=== PATIENT | female | born 1945 | race Caucasian/White ===

== ENCOUNTER 2016-10-30 05:58 | Inpatient (IN) | payer OTHER ==
[2016-10-30 06:39] VITALS: BMI 54.4
[2016-10-30] MEDS ORDERED: KETOROLAC TROMETHAMINE 30 MG/1 ML VIAL ONE (07:49)
[2016-10-30] MEDS ORDERED: ACETAMINOPHEN INJECTION 100 ML IVPB ONE (07:49)
[2016-10-30] MEDS ORDERED: SODIUM CHLORIDE 1,000 ML IV STA (08:18)
[2016-10-30] MEDS ORDERED: PIPERACILLIN/TAZOB 3.375 GM/50 ML PRE-DOCKED IV ONE (08:18)
[2016-10-30] MEDS ORDERED: KETOROLAC TROMETHAMINE 30 MG/1 ML VIAL IVPUSH ONE (08:18)
[2016-10-30] MEDS ORDERED: ACETAMINOPHEN 500 MG TABLET (FP) PO ONE (08:18)
[2016-10-30] MEDS ORDERED: VANCOMYCIN 1,000 MG in DEXTROSE 5%-WATER - 250 ML IVPB ONE (08:18)
--- NOTE | 2016-10-30 08:18 | PDOC ---
History of Present Illness - General History Source: Patient, Old Records Exam Limitations: No Limitations - History of Present Illness Initial Comments: 10/30/16 07:29 The patient is a 71-year-old woman, from home, with a significant past medical history of hypertension, hyperchoelsterolemia, insulin dependent diabetes mellitus, chronic obstructive pulmonary disease (baseline O2 is low 90s; home O2 dependent on 2.5L), hypothyroidism, kidney stones and morbid obesity who presents to the emergency department via EMS status post fall. No head injury. Patient stated that she was transferring from her bed to an electric chair with the assistance of her brother and slid and fell on the left side of her body. She reports excruciating non-radiating pain over the left knee (reported 10/10 in severity) for which she has a history of partial knee replacement. Although, upon ED arrival, her vitals were significant for a temperature of 100.5, heart rate of 108 bpm respiratory rate of 22 and an oxygen saturation of 88% on 5L NC , she denies feeling short of breath and states she is at her baseline. She also expresses concern for her cellulitis over both her lower extremities, for which she follows up every Saturday at [facility]. No leg pain. She wants to be on time for her appointment at 11:00AM. Off note- patient underwent an echocardiogram on 02/29/2016 for hypoxia which revealed left ventrical systolic function is mild to moderately reduced, left/ right atria are mildly dilated, trace to mild mitral regurgitation, moderate tricuspid regurgitations, right ventricular systolic pressure of-mmHg and small pericardial effusion (<1cm) and a stress test on 06/07/2016 which) was indicative for no ischemia and a LVEF of 45%. No chills, generalized weakness No numbness, parethesias sensations to her extremities. No cough, shortness of breath. No chest pain, lightheadedness, dizziness, visual changes Allergies: Codeine. Tramadol. Shellfish Past Surgical History: Partial left knee replacement. Social History: Former smoker. No EtOH and recreational drug use. Primary Care Physician: Dr. Alirio Garcia <Sharon Moss - Last Filed: 10/30/16 13:21> - General History Source: Patient, Old Records Exam Limitations: No Limitations <Devora Short - Last Filed: 10/30/16 13:25> - General Chief Complaint: Shortness of Breath Stated Complaint: FALL Time Seen by Provider: 10/30/16 07:29 Past History <Sharon Moss - Last Filed: 10/30/16 13:21> - Past Medical History Anemia: No Asthma: No Cancer: No Cardiac Disorders: No CVA: No COPD: No CHF: No Dementia: No Diabetes: Yes (IDDM) Disorders: Yes (kideney stones) HTN: Yes Hypercholesterolemia: Yes Liver Disease: No Seizures: No Thyroid Disease: Yes (hypo) - Surgical History Abdominal Surgery: No Appendectomy: No Cardiac Surgery: No Cholecystectomy: No Lung Surgery: No Neurologic Surgery: No Orthopedic Surgery: Yes (LT PARTIAL KNEE REPLACEMENT) - Psycho/Social/Smoking Cessation Hx Anxiety: No Suicidal Ideation: No Smoking Status: No Smoking History: Former smoker Have you smoked in the past 12 months: No Number of Cigarettes Smoked Daily: 1 If you are a former smoker, when did you quit?: 1981 Information on smoking cessation initiated: No Hx Alcohol Use: No Drug/Substance Use Hx: No Substance Use Type: None Hx Substance Use Treatment: No <Devora Short - Last Filed: 10/30/16 13:25> - Past Medical History Allergies/Adverse Reactions: Allergies Allergy/AdvReac Type Severity Reaction Status Date / Time codeine [Codeine] Allergy Verified 10/30/16 06:50 shellfish derived Allergy Verified 10/30/16 06:50 tramadol AdvReac Mild Verified 10/30/16 06:50 Home Medications: Ambulatory Orders Aspirin [ASA -] 81 mg PO DAILY 06/10/14 Garlic 1 each PO DAILY 06/10/14 Simvastatin [Zocor -] 40 mg PO HS 06/10/14 Potassium 20 meq PO DAILY 02/28/16 Torsemide [Demadex -] 20 mg PO DAILY 10/16/16 Glipizide/Metformin HCl [Glipizide-Metformin 5-500 mg] 1 each PO BID 10/30/16 Insulin Glargine,Hum.rec.anlog [Lantus (nf)] 0 units SQ HS 10/30/16 Levothyroxine [Synthroid -] 75 mcg PO DAILY 10/30/16 Losartan Potassium 50 mg PO DAILY 10/30/16 [place]-3 Fatty Acids [Fish Oil] 300 mg PO DAILY 10/30/16 Review of Systems - Review of Systems Able to Perform ROS?: Yes Comments:: 10/30/16 07:29 CONSTITUTIONAL: Absent: fever, chills, diaphoresis, generalized weakness, malaise, loss of appetite HEENT: Absent: rhinorrhea, nasal congestion, throat pain, throat swelling, difficulty swallowing, mouth swelling, ear pain, eye pain, visual Changes CARDIOVASCULAR: Absent: chest pain, syncope, palpitations, irregular heart rate , lightheadedness, peripheral edema RESPIRATORY: Absent: cough, shortness of breath, dyspnea with exertion, orthopnea, wheezing, stridor, hemoptysis GASTROINTESTINAL:Absent: abdominal pain, abdominal distension, nausea, vomiting , diarrhea, constipation, melena, hematochezia GENITOURINARY: Absent: dysuria, frequency, urgency, hesitancy, hematuria, flank pain, genital pain MUSCULOSKELETAL: Present: Knee pain. Absent: myalgia, joint swelling SKIN: Absent: rash, itching, pallor HEMATOLOGIC/IMMUNOLOGIC: Absent: easy bleeding, easy bruising, lymphadenopathy, frequent infections ENDOCRINE:Absent: unexplained weight gain, unexplained weight loss, heat intolerance, cold intolerance NEUROLOGIC: Absent: headache, focal weakness or paresthesias, dizziness, unsteady gait, seizure, mental status changes, bladder or bowel incontinence PSYCHIATRIC: Absent: anxiety, depression, suicidal or homicidal ideation, hallucinations <Sharon Moss - Last Filed: 10/30/16 13:21> *Physical Exam - Vital Signs Last Vital Signs Temp Pulse Resp BP Pulse Ox 101.1 F H 109 H 20 106/80 92 L 10/30/16 08:18 10/30/16 08:18 10/30/16 08:18 10/30/16 08:18 10/30/16 08:18 - Physical Exam Comments: 10/30/16 07:29 GENERAL: Morbidly obese. Awake and alert. No acute distress. On 5L Nasal cannula. HEENT: Normocephalic, atraumatic. PERRLA, EOMI. No conjunctival pallor. Sclera are non-icteric. Moist mucous membranes. Oropharynx is clear. NECK: Supple. Full ROM. No JVD. CARDIOVASCULAR: Regular rate and rhythm. No murmurs, rubs, or gallops. PULMONARY: No evidence of respiratory distress. Lungs clear to auscultation bilaterally. No wheezing, rales or rhonchi. ABDOMINAL: Soft. Non-tender. Non-distended. No rebound or guarding. No organomegaly. Normoactive bowel sounds. MUSCULOSKELETAL: Normal range of motion at all joints. No bony deformities or tenderness. No CVA tenderness. EXTREMITIES: No cyanosis. No clubbing. There is bilateral circumferential erythema right greater than left of the tib-fib region with plus 3 bipedal edema No calf tenderness. SKIN: There is an approximately 3 cm by 4 cm lesion to the plantar surface near the heel with some yellow discharge No rashes. No jaundice. No sin breakdown. NEUROLOGICAL: Alert, awake, appropriate. Cranial nerves 2-12 intact. Normal speech. PSYCHIATRIC: Cooperative. Good eye contact. Appropriate mood and affect. <Sharon Moss - Last Filed: 10/30/16 13:21> - Vital Signs Last Vital Signs Temp Pulse Resp BP Pulse Ox 100.5 F H 108 H 22 132/63 90 L 10/30/16 06:30 10/30/16 06:30 10/30/16 06:30 10/30/16 06:30 10/30/16 06:40 <Devora Short - Last Filed: 10/30/16 13:25> Heart Score/ECG Review #1 10/30/16 10:17 Reviewed and interpreted by Dr. Devora Short IMPRESSION: Sinus tachycardia with a rate of 105 bpm. Normal axis. Shannon intervals. No acute ST segment changes. Poor R wave progression. Unchanged form EKG 05/2016. <Sharon Moss - Last Filed: 10/30/16 13:21> ED Treatment Course - LABORATORY CBC & Chemistry Diagram: 10/30/16 08:25 10/30/16 08:25 - ADDITIONAL ORDERS Additional order review: Laboratory Results 10/30/16 08:18 VBG pH 7.41 POC VBG pCO2 36.8 L POC VBG pO2 49.7 H Mixed VBG HCO3 23.2 10/30/16 08:25 RBC 3.32 L MCV 78.8 L MCHC 31.3 L RDW 18.1 H MPV 8.9 Neutrophils % 92.7 H Lymphocytes % 3.7 L D Monocytes % 3.5 L Eosinophils % 0.0 D Basophils % 0.1 - RADIOLOGY Radiograph Interpretation: 10/30/16 13:21 EXAM: RAD/CHEST - PA Interpreted by Dr. Jacob De La O IMPRESSION: A single AP projection of the chest is submitted. The heart size is enlarged. The lung mcadams are free of pulmonary infiltrates or pleural effusions. There are increased interstitial markings diffusely suggesting a mild degree of acute pulmonary vascular congestion. Clinical correlation is advised as these changes could be chronic in nature. EXAM RAD/FOOT-RIGHT RAD/KNEE 2 POS-LEFT RAD/LEG TIB/FIB-LEFT RAD/LEG TIB/FIB-RIGHT Interpreted by Dr. Jacob De La O IMPRESSION: AP and lateral projections of the left knee and tib-fib, as well as the right tib-fib and foot, reveals the patient to be S/P unicompartmental left knee replacement. There is a comminuted fracture of the distal femur just above the prosthesis. There is impaction of fracture fragments. There is no evidence of dislocation of the knee joint. No additional fractures of the left tib-fib are identified. There is no evidence of fracture or acute bony abnormalities of the right tib-fib or foot. EXAM: RAD/FEMUR-LEFT Interpreted by Dr. Jacob De La O IMPRESSION: Left femur 2 views. No evidence of hip dislocation. Limited evaluation of the left hip due to the patient's habitus. Impacted comminuted fracture of the distal femur is seen superior to the orthopedic hardware. - Medications Given in the ED: ED Medications Discontinued Medications Generic Name Dose Route Start Last Admin Trade Name Freq PRN Reason Stop Dose Admin Ketorolac Tromethamine 30 mg 10/30/16 08:18 10/30/16 08:00 Toradol Injection - IVPUSH 10/30/16 08:19 30 mg ONCE ONE Administration Piperacillin Sod/Tazobactam Sod 3.375 gm 10/30/16 08:18 10/30/16 08:59 Zosyn 3.375gm Ivpb (Pre-Docked) IV 10/30/16 08:19 3.375 gm ONCE ONE Administration Protocol <Sharon Moss - Last Filed: 10/30/16 13:21> - LABORATORY CBC & Chemistry Diagram: 10/30/16 08:25 10/30/16 08:25 <Devora Short - Last Filed: 10/30/16 13:25> Medical Decision Making - Medical Decision Making 10/30/16 10:[address] Ez Griggs. 10/30/16 10:[address] Felder, who performed the patient's left partial knee replacement. 10/30/16 11:[address] Ez Griggs. Case discussed. 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 Differential diagnosis includes but is not limited to: Cellulitis, osteomyelitis, pneumonia, dehydration, toxic/metabolic derangement, urinary tract infection, pneumonia, bony injury. Plan: 1. Braden culture 2. Labs 3. Plain films of chest, left knee, left tib-fib, right tib-fib, right foot 4. IV fluids for hydration 5. Tylenol for fever 6. Toradol for pain 7. Antibiotics 8. Observe and reevaluate 10/30/16 10:19 Addendum: The labs were reviewed and are noted in the EMR. The white blood cell count is markedly elevated. The plain film of the left knee reveals a comminuted fracture of the distal femur above the left knee prosthesis with impacted fragments. The plan is to admit the patient to [facility] and consult orthopedics <Devora Short - Last Filed: 10/30/16 13:25> *DC/Admit/Observation/Transfer - Attestations Scribe Attestion: 10/30/16 07:29 Documentation prepared by Sharon Moss, acting as medical biller coder for Devora Short MD. <Sharon Moss - Last Filed: 10/30/16 13:21> - Discharge Dispostion Admit: Yes - Attestations Physician Attestion: 10/30/16 08:42 I, Dr. Devora Short, attest that the scribes documentation that appears above has been prepared under my direction and personally reviewed by me in its entirety. I confirmed that the note above accurately reflects all work, treatment, procedures, and medical decision-making performed by me. <Devora Short - Last Filed: 10/30/16 13:25> Diagnosis at time of Disposition: Fever, Cellulitis, Cellulitis of right leg, Fracture of femur, distal, closed - Discharge Dispostion Condition at time of disposition: Stable - Referrals Referrals: Alirio Garcia MD [Primary Care Provider] -
[2016-10-30] MEDS ORDERED: PIPERACILLIN/TAZOB 3.375 GM 50 ML IVPB ONE (08:19)
[2016-10-30] MEDS ORDERED: INSULIN DETEMIR 100 UNITS/ML MDV SQ ONE (08:24)
[2016-10-30 08:42] LABS: BASOPHIL 0.1 % (0-2.0); MCH 24.7 pg (25.7-33.7); MCHC 31.3 g/dl (32.0-36.0); MEAN CELL VOLUME 78.8 fl (80-96); MEAN PLT VOLUME 8.9 fl (7.5-11.1); NEUTROPHILS 92.7 % (42.8-82.8); PLATELET COUNT 243 K/MM3 (134-434); RDW 18.1 % (11.6-15.6); WHITE BLOOD COUNT 19.2 K/mm3 (4.0-10.0)
[2016-10-30 08:44] LABS: VENOUS BLOOD GAS HCO3 23.2 meq/L (19-25); VENOUS PH 7.41 (7.32-7.42)
[2016-10-30] MEDS ORDERED: ACETAMINOPHEN 1000 MG/100 ML VIAL (NON FORMULARY) IVPB ONE (09:00)
[2016-10-30 09:06] LABS: INR 1.43 (0.82-1.09); PROTHROMBIN TIME (PATIENT) 15.8 SEC (9.98-11.88)
[2016-10-30 09:08] LABS: ACTIVATED PTT 28.9 SECONDS (26.9-34.4); ALBUMIN 2.8 g/dl (3.4-5.0); CALCIUM 7.8 mg/dL (8.5-10.1); COCKROFT - GAULT 111.35
[2016-10-30 09:11] LABS: BILIRUBIN,TOTAL 0.7 mg/dL (0.2-1.0); TOT PROT 6.7 g/dl (6.4-8.2); TROPONIN I 0.05 ng/ml (0.00-0.05)
--- NOTE | 2016-10-30 10:40 | EKG ---
Test Reason : Blood Pressure : / mmHG Vent. Rate : 104 BPM Atrial Rate : 104 BPM P-R Int : 172 ms QRS Dur : 080 ms QT Int : 358 ms P-R-T Axes : 049 -30 066 degrees QTc Int : 470 ms SINUS TACHYCARDIA WITH PREMATURE ATRIAL COMPLEXES LEFT AXIS DEVIATION ABNORMAL ECG WHEN COMPARED WITH ECG OF 06-JUN-2016 08:27, PREMATURE ATRIAL COMPLEXES ARE NOW PRESENT Confirmed by JUAN KENNEY, HONG ([id number]) on 10/30/2016 10:40:30 AM Referred By: Confirmed By:HONG MARTINEZ MD
[2016-10-30] MEDS ORDERED: ONDANSETRON 4 MG/2 ML VIAL IVPB PRN (11:21)
--- NOTE | 2016-10-30 11:36 | HP ---
Admitting History and Physical - Primary Care Physician PCP: Alirio Garcia - Admission Chief Complaint: I fell History of Present Illness: Ms Vázquez is a pleasant 71 year old female who came in with mechanical fall. She says she has been doing well since she was admitted and her heel ulcer is improving significantly. She has been feeling well and is without complaint. She denies fevers, chills, lightheadedness, dizziness, chest pain, shortness of breath, coughing, abdominal pain, nausea, vomiting, diarrhea, constipation, difficulty or pain on urination, or swelling. She was transferring today and had a mechanical fall. She presented with a broken femur. History Source: Patient Limitations to Obtaining History: No Limitations - Past Medical History Cardiovascular: Yes: CHF, HTN Pulmonary: Yes: COPD, Sleep Apnea Renal/: Yes: Renal Calculi (s/p lithotripsy) Heme/Onc: Yes: Anemia Musculoskeletal: Yes: Chronic low back pain Endocrine: Yes: Diabetes Mellitus, Hypothyroidism, Other (morbid obesity) - Past Surgical History Past Surgical History: Yes: Joint Replacement (left knee (partial replacement)) - Smoking History Smoking history: Former smoker Have you smoked in the past 12 months: No Aproximately how many cigarettes per day: 1 If you are a former smoker, when did you quit?: 1981 - Alcohol/Substance Use Hx Alcohol Use: No History of Substance Use: reports: None - Social History ADL: Independent 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 History of Recent Travel: No Home Medications - Allergies Allergies/Adverse Reactions: Allergies Allergy/AdvReac Type Severity Reaction Status Date / Time codeine [Codeine] Allergy Verified 10/30/16 06:50 shellfish derived Allergy Verified 10/30/16 06:50 tramadol AdvReac Mild Verified 10/30/16 06:50 - Home Medications Home Medications: Ambulatory Orders Aspirin [ASA -] 81 mg PO DAILY 06/10/14 Garlic 1 each PO DAILY 06/10/14 Simvastatin [Zocor -] 40 mg PO HS 06/10/14 Potassium 20 meq PO DAILY 02/28/16 Torsemide [Demadex -] 20 mg PO DAILY 10/16/16 Glipizide/Metformin HCl [Glipizide-Metformin 5-500 mg] 1 each PO BID 10/30/16 Insulin Glargine,Hum.rec.anlog [Lantus (nf)] 0 units SQ HS 10/30/16 Levothyroxine [Synthroid -] 75 mcg PO DAILY 10/30/16 Losartan Potassium 50 mg PO DAILY 10/30/16 [place]-3 Fatty Acids [Fish Oil] 300 mg PO DAILY 10/30/16 Family Disease History - Family Disease History Family Disease History: Heart Disease: Mother, CA: Father (colon) Review of Systems Findings/Remarks: Full review of systems obtained, as per HPI and otherwise negative Physical Examination Vital Signs: Vital Signs Temperature 101.1 F H 10/30/16 08:18 Pulse Rate 109 H 10/30/16 08:18 Respiratory Rate 20 10/30/16 08:18 Blood Pressure 106/80 10/30/16 08:18 O2 Sat by Pulse Oximetry (%) 92 L 10/30/16 08:18 Constitutional: Yes: Obese, Other (slightly lethargic) Eyes: Yes: Conjunctiva Clear, PERRL HENT: Yes: Atraumatic, Normocephalic Cardiovascular: Yes: Regular Rate and Rhythm. No: Gallop, Murmur, Rub Respiratory: Yes: Regular, CTA Bilaterally. No: Rales, Rhonchi, Wheezes Gastrointestinal: Yes: Normal Bowel Sounds, Soft. No: Distention, Tenderness Extremities: Yes: Other (ulcer well healed) Edema: No Labs: CBC, BMP 10/30/16 08:25 10/30/16 08:25 Imaging - Results Chest X-ray: Report Reviewed, Image Reviewed X-ray: Report Reviewed Problem List - Problems (1) Fracture of femur, distal, closed Assessment/Plan: -secondary to mechanical fall -ortho consulted Code(s): S72.409A - UNSP FRACTURE OF LOWER END OF UNSP FEMUR, INIT FOR CLOS FX Qualifiers: Encounter type: initial encounter Laterality: left (2) Cellulitis Assessment/Plan: -cellulitis on foot -ID consulted -given vancomycin and zosyn in the ER -further antibiotics per ID Code(s): L03.90 - CELLULITIS, UNSPECIFIED Qualifiers: Site of cellulitis: extremity Site of cellulitis of extremity: lower extremity Laterality: right Qualified Code(s): L03.115 - Cellulitis of right lower limb (3) UTI (urinary tract infection) Assessment/Plan: -suspect this is source of sepsis -antibiotics per ID -follow up cultures Code(s): N39.0 - URINARY TRACT INFECTION, SITE NOT SPECIFIED Qualifiers: Urinary tract infection type: acute cystitis Hematuria presence: without hematuria Qualified Code(s): N30.00 - Acute cystitis without hematuria (4) Sepsis Assessment/Plan: -as evidenced by leukocytosis, fevers, and tachycardia -admit -IV antibiotics -hydration -cardiology consult since on torsemide -hold torsemide currently Code(s): A41.9 - SEPSIS, UNSPECIFIED ORGANISM (5) Diabetes Assessment/Plan: -continue glipizide and metformin -diabetic diet -FSBS and SSI Code(s): E11.9 - TYPE 2 DIABETES MELLITUS WITHOUT COMPLICATIONS Qualifiers: Diabetes mellitus type: type 2 Diabetes mellitus complication status: with skin complications Diabetes mellitus complication detail: with foot ulcer Diabetes mellitus yarn tester insulin use: with mcc use Qualified Code(s): E11.621 - Type 2 diabetes mellitus with foot ulcer; L97.509 - Non-pressure chronic ulcer of other part of unspecified foot with unspecified severity; Z79.4 - fire protection specialist (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 of insulin (6) Anemia Assessment/Plan: -at baseline -monitor -may need transfusion Code(s): D64.9 - ANEMIA, UNSPECIFIED Qualifiers: Anemia type: unspecified type Qualified Code(s): D64.9 - Anemia, unspecified (7) Morbid obesity Assessment/Plan: -outpatient counselling Code(s): E66.01 - MORBID (SEVERE) OBESITY DUE TO EXCESS CALORIES Qualifiers: Obesity type: due to excess calories Qualified Code(s): E66.01 - Morbid (severe) obesity due to excess calories (8) HTN (hypertension) Assessment/Plan: -continue cozaar Code(s): I10 - ESSENTIAL (PRIMARY) HYPERTENSION (9) HLD (hyperlipidemia) Assessment/Plan: -continue lipitor Code(s): E78.5 - HYPERLIPIDEMIA, UNSPECIFIED
[2016-10-30 13:57] LABS: URINE APPEARANCE CLOUDY; URINE BILIRUBIN NEGATIVE (NEGATIVE); URINE COLOR DKYELLOW; URINE GLUCOSE (UA) NEGATIVE (NEGATIVE); URINE KETONE TRACE (NEGATIVE); URINE NITRITE NEGATIVE (NEGATIVE); URINE UROBILINOGEN NEGATIVE E.U./dl (0.2-1.0)
--- NOTE | 2016-10-30 13:59 | CONSULT ---
Consult - text type - Consultation Consultation Note: FULL EMERGENCY ROOM CONSULTATION DICTATED IMP: LEFT DISPLACED SUPRACONYLAR PERIPROSTHETIC FEMUR FX AND CELLULITIS PLAN: -- >OR OF SATURDAY FOR LEFT DISTAL FEMORAL REPLACEMENT, IV ABX FOR CELLULITIS
[2016-10-30 14:00] LABS: URINE BLOOD 3+ (NEGATIVE); URINE LEUK ESTERASE 3+ (NEGATIVE); URINE PROTEIN 2+ (NEGATIVE)
[2016-10-30 14:02] LABS: URINE BACTERIA MANY /hpf (NONE SEEN); URINE MUCUS FEW; URINE WBC 582 /hpf (3-5)
[2016-10-30 14:04] LABS: URINE RBC 9 /hpf (0-3)
--- NOTE | 2016-10-30 14:31 | CONS ---
DATE OF CONSULTATION: 10/30/2016 HISTORY: The patient is a 71-year-old obese female status post fall today complaining of significant pain in her left knee. The patient is well known to our practice as we had done a bicompartmental partial knee replacement on her about 5 years ago. The patient was doing quite well. The patient has numerous medical conditions including COPD, sleep apnea, diabetes, hypothyroidism, and morbid obesity. She slipped and fell today and is complaining of acute pain in her left knee with inability to ambulate. Upon admission to the emergency room, the patient was found to have a white count of 19.2 and had a fever of 101.1 with pulse rate of 109. PHYSICAL EXAMINATION: General: The patient is morbidly obese. Extremities: She has a well-healed midline scar over the patella on the left side. A great deal of pain with range of motion of her left knee with crepitus and some swelling. Calf is soft, nontender. She does have chronic venostasis changes distally in both her legs with some erythema especially in her right leg. She has good motion of her hip, and her contralateral side is without incident. X-rays revealed a comminuted and displaced distal femur fracture in the supracondylar region above a previous bicompartmental partial knee replacement. IMPRESSION: Left distal femur supracondylar periprosthetic displaced fracture of the left femur. PLAN: Risks, benefits, and alternatives were discussed with the patient in great deal. The patient will be converted from the current joint replacement to a distal femoral replacement procedure. We first need to optimize the patient as the patient has cellulitis now with a white count of 20 and a fever. We, therefore, will postpone the surgery now pending optimization tentatively scheduled for this Saturday. YVAN OAKES M.D. [id number]
[2016-10-30 15:16] LABS: C-REACTIVE PROTEIN 18.4 MG/DL (0.00-0.3)
--- NOTE | 2016-10-30 16:54 | PN ---
Progress Note (short form) - Note Progress Note: ID Consult dictated Recurrent cellulitis R LE Possible sepsis L femur fracture Morbid obesity DM Cultures obtained Empiric zosyn/ vancomycin
[2016-10-30] MEDS ORDERED: SODIUM CHLORIDE 1,000 ML IV SCH (17:15)
[2016-10-30] MEDS ORDERED: PIPERACILLIN/TAZOB 4.5 GM 100 ML IVPB ONE (17:29)
[2016-10-30] MEDS: PIPERACILLIN/TAZOB 4.5 GM 100 ML IVPB SCH (17:36)
[2016-10-30] MEDS: INSULIN SLIDING SCALE (NOVOLOG) 1 VIAL SQ SCH ×2 (17:40→23:22)
[2016-10-30] MEDS: glipiZIDE 5 MG TABLET (FP) PO SCH (17:40)
[2016-10-30] MEDS: metFORMIN HCL 500 MG TABLET (FP) PO SCH (17:40)
--- NOTE | 2016-10-30 17:45 | CON.CARD ---
Consult Consult Specialty:: cardio Referred by:: ricco Reason for Consultation:: preop cv eval - History of Present Illness Chief Complaint: fall History of Present Illness: 71 yo female s/p mechanical fall with fractured femur. ortho plans OR repair 11/02. asked to provide cv preop eval/rec.s; she states brother was helping her try to move when she slipped and fell to the floor. no presync/syncope no cp, sob, palpitations. says she's complying with torsemide, legs swollen ? if worse or stable no sob at all at home recently stopped carvedilol 3.125 bid b/c makes her cough PMH: obesity mixed diast/syst chf HTN - Past Medical History Cardio/Vascular: Yes: CHF, HTN Pulmonary: Yes: COPD, Sleep Apnea Renal/: Yes: Renal Calculi (s/p lithotripsy) Musculoskeletal: Yes: Chronic low back pain Endocrine: Yes: Diabetes Mellitus, Hypothyroidism, Other (morbid obesity) - Past Surgical History Past Surgical History: Yes: Joint Replacement (left knee (partial replacement)) - Alcohol/Substance Use Hx Alcohol Use: No History of Substance Use: reports: None - Smoking History Smoking history: Former smoker Have you smoked in the past 12 months: No Aproximately how many cigarettes per day: 1 If you are a former smoker, when did you quit?: 1981 - Social History ADL: Independent 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 History of Recent Travel: No Home Medications - Allergies Allergies/Adverse Reactions: Allergies Allergy/AdvReac Type Severity Reaction Status Date / Time codeine [Codeine] Allergy Verified 10/30/16 06:50 shellfish derived Allergy Verified 10/30/16 06:50 tramadol AdvReac Mild Verified 10/30/16 06:50 - Home Medications Home Medications: Ambulatory Orders Aspirin [ASA -] 81 mg PO DAILY 06/10/14 Garlic 1 each PO DAILY 06/10/14 Simvastatin [Zocor -] 40 mg PO HS 06/10/14 Potassium 20 meq PO DAILY 02/28/16 Torsemide [Demadex -] 20 mg PO DAILY 10/16/16 Glipizide/Metformin HCl [Glipizide-Metformin 5-500 mg] 1 each PO BID 10/30/16 Insulin Glargine,Hum.rec.anlog [Lantus (nf)] 0 units SQ HS 10/30/16 Levothyroxine [Synthroid -] 75 mcg PO DAILY 10/30/16 Losartan Potassium 50 mg PO DAILY 10/30/16 Onyx-3 Fatty Acids [Fish Oil] 300 mg PO DAILY 10/30/16 Family Disease History - Family Disease History Family Disease History: Heart Disease: Mother, CA: Father (colon) Vital Signs: Vital Signs Temperature 101.1 F H 10/30/16 08:18 Pulse Rate 102 H 10/30/16 08:18 Respiratory Rate 20 10/30/16 08:18 Blood Pressure 115/69 10/30/16 08:18 O2 Sat by Pulse Oximetry (%) 100 10/30/16 08:18 - Other Data Labs, Other Data: INR, PTT INR 1.43 (0.82-1.09) H 10/30/16 08:25 ekg 10/30: sinus tach 104; left axis; no path q's; no ST-T abnormality Imaging - Results Chest X-ray: Report Reviewed, Image Reviewed Assessment/Plan stress MPI 06/08: no ischemic EKG changes. nl perfusion. EF 45%, global. Echo 02/2016: suboptimal. grossly nl lv size. Mild-mod LV dysfunction. RV not well seen. Mild ARLYN. Mod TR. RVSP 40-50. Small effusion < 1 cm. pre-operative clearance (ORIF femur), s/p mechanical fall with fracture: - RCRI = 2, unknown functional status (probably reduced) - for intermediate risk surgery - no signs/sx of active ischemic heart dz and doubt decomp chf--resp status stable - no ischemia on nuclear stress test 5 mo ago - if no PE on CTA, and she remains stable without signs of chf, she will be at acceptable (intermediate) risk of periop CV complications and may proceed without further testing systolic dysfunction, chronic mixed syst/diast chf - episode chf 06/08, EF mildly reduced then, diuresed in hospital - low bp's noted then so carvedilol held--recently intolerant (cough) of 3.125 bid at home she says - cont ARB as doing for now - on torsemide 20 at home, cont same - CXR here with mild incr'd markings, ? vasc redistribution, no effusions-- unchanged vs 06/08 and 03/09--suspect chronic finding - should have sleep study as outpatient (if not previously done) to r/o LUCIUS as cause of nonisch CMP - if no PE (to have CTA), will give trial dose lasix 40 iv qd to see if helps oxygenation HTN - bp controlled - cont losartan - BB later anemia: - stable at recent baseline (hgb 8s) - per primary team hypoxia: -sat transiently 88% in ER (confirmed with RN who states this appeared real)-- up to 92% with NC -now maintaining normal oxygenation on suppl O2 -? obesity/atelectasis -sinus tach to 100s -CXR clear, doubt chf -PE rule-out with CTA ordered (note: i give permission to do this despite BUN of 20 (creat 1.0, GFR 50s)) fever: -per primary team HL - con't statin DM - per primary team IF CTA SHOWS NO PE, PT DOES NOT NEED TELEMETRY MONITORING
[2016-10-30] MEDS ORDERED: VANCOMYCIN 1,250 MG in DEXTROSE 5%-WATER - 250 ML IVPB SCH (18:00)
[2016-10-30 20:54] LABS: TROPONIN I 0.03 ng/ml (0.00-0.05)
[2016-10-30] MEDS ORDERED: PATIENT'S OWN MEDICATION (NON-FORMULARY) (Glipizide/Metformin Hcl [Glipizide-Metformin 5-5 PO SCH (22:00)
[2016-10-30] MEDS: DOCUSATE SODIUM 100 MG CAPSULE (FP) PO SCH (23:00)
[2016-10-30] MEDS: ATORVASTATIN CA 20 MG TABLET (FP) PO SCH (23:00)
[2016-10-31] MEDS: ACETAMINOPHEN 325 MG TABLET (FP) PO PRN ×3 (00:21→20:20)
[2016-10-31] MEDS: PIPERACILLIN/TAZOB 4.5 GM 100 ML IVPB SCH ×3 (02:15→17:30)
[2016-10-31] MEDS ORDERED: VANCOMYCIN 1,250 MG in DEXTROSE 5%-WATER - 250 ML IVPB SCH (05:10)
[2016-10-31] MEDS: glipiZIDE 5 MG TABLET (FP) PO SCH ×2 (06:42→16:33)
[2016-10-31] MEDS: metFORMIN HCL 500 MG TABLET (FP) PO SCH ×2 (06:42→16:33)
[2016-10-31] MEDS: INSULIN SLIDING SCALE (NOVOLOG) 1 VIAL SQ SCH ×4 (06:44→21:33)
[2016-10-31] MEDS: LEVOTHYROXINE NA 75 MCG TABLET (FP) PO SCH (06:57)
[2016-10-31 07:07] LABS: BASOPHIL 0.1 % (0-2.0); EOSINOPHIL 0.1 % (0-4.5); MCH 24.9 pg (25.7-33.7); MEAN CELL VOLUME 80.2 fl (80-96); NEUTROPHILS 90.6 % (42.8-82.8); PLATELET COUNT 209 K/MM3 (134-434); RDW 17.7 % (11.6-15.6); WHITE BLOOD COUNT 13.5 K/mm3 (4.0-10.0)
[2016-10-31] MEDS ORDERED: PT OWN MED DRAWER 7, Y5N ONE ×2 (08:52→17:31)
--- NOTE | 2016-10-31 09:10 | PN ---
Progress Note (short form) - Note Progress Note: Ortho Pt seen and examined s/p left periprosthetic distal femur fx LLE- shortened and ER, nvi a/p OR tentatively for Saturday pending clearance pain control dvt ppx NPO after midnight on d/w Dr. Felder
[2016-10-31] MEDS: TORSEMIDE 20 MG TABLET (FP) PO SCH (09:28)
[2016-10-31] MEDS: LOSARTAN POTASSIUM 50 MG TABLET (FP) PO SCH ×2 (09:28→09:53)
[2016-10-31] MEDS: DOCUSATE SODIUM 100 MG CAPSULE (FP) PO SCH ×2 (09:28→21:34)
[2016-10-31] MEDS: PANTOPRAZOLE 40 MG TABLET (FP) PO SCH (09:28)
[2016-10-31] MEDS: ENOXAPARIN NA (PORCINE) 40 MG/0.4 ML DISP.SYRIN SQ SCH (09:29)
[2016-10-31] MEDS: POLYETHYLENE GLYCOL 3350 119 GM BTL PO SCH (09:30)
[2016-10-31] MEDS ORDERED: TORSEMIDE 20 MG TABLET (FP) PO SCH (10:00)
[2016-10-31] MEDS ORDERED: PATIENT'S OWN MEDICATION (NON-FORMULARY) (Omega-3 Fatty Acids [Fish Oil] 300 MG) PO SCH (10:00)
--- NOTE | 2016-10-31 11:00 | PN ---
Progress Note (short form) - Note Progress Note: s: no cp sob palps dizzy; +pain from hip fx o: Vital Signs Period Temp Pulse Resp BP Sys/Donohue Pulse Ox Last 24 Hr 98 F-98.2 F 73-100 20-20 100-118/49-60 96-96 nad no jvd rrr s1s2 no mrg cta bl nl eff aaox3 trace le edema bl, +chronic stasis changes abd nt nd pos bs no jaundice diaphoresis Current Medications Generic Name Dose Route Start Last Admin Trade Name Freq PRN Reason Stop Dose Admin Acetaminophen 650 mg 10/30/16 11:21 10/31/16 06:46 Tylenol - PO 650 mg Q4H PRN Administration FEVER OR PAIN Atorvastatin Calcium 20 mg 10/30/16 22:00 10/30/16 23:00 Lipitor - PO 20 mg HS LISA Administration Docusate Sodium 100 mg 10/30/16 22:00 10/31/16 09:28 Colace - PO 100 mg BID LISA Administration Enoxaparin Sodium 40 mg 10/31/16 10:00 10/31/16 09:29 Lovenox - SQ 40 mg DAILY LISA Administration Glipizide 5 mg 10/30/16 16:30 10/31/16 06:42 Glucotrol - PO 5 mg BIDAC LISA Administration Piperacillin Sod/Tazobactam Sod 100 mls @ 200 mls/hr 10/30/16 18:00 10/31/16 09 :30 Zosyn 4.5gm Ivpb (Pre-Docked) IVPB 200 mls/hr Q8H-IV LISA Administration Protocol Vancomycin HCl 1,250 mg/ 250 mls @ 166.667 mls/hr 10/31/16 05:10 Dextrose IVPB BID@1100,2300 [facility] Insulin Aspart 1 vial 10/30/16 16:30 10/31/16 06:44 Novolog Vial Sliding Scale - SQ Not Given ACHS [facility] Protocol Levothyroxine Sodium 75 mcg 10/31/16 07:00 10/31/16 06:57 Synthroid - PO 75 mcg DAILY@0700 LISA Administration Metformin HCl 500 mg 10/30/16 16:30 10/31/16 06:42 Glucophage - PO Not Given BIDAC [facility] Ondansetron HCl 4 mg 10/30/16 11:21 Zofran Injection IVPB Q6H PRN NAUSEA Pantoprazole Sodium 40 mg 10/31/16 10:00 10/31/16 09:28 Protonix - PO 40 mg DAILY LISA Administration Polyethylene Glycol 17 gm 10/31/16 10:00 10/31/16 09:30 Miralax (For Daily Use) - PO 17 grams DAILY LISA Administration Torsemide 20 mg 10/31/16 10:00 10/31/16 09:28 Demadex - PO 20 mg DAILY LISA Administration CBC, BMP 10/31/16 05:35 stress MPI 06/08: no ischemic EKG changes. nl perfusion. EF 45%, global. Echo 02/2016: suboptimal. grossly nl lv size. Mild-mod LV dysfunction. RV not well seen. Mild ARLYN. Mod TR. RVSP 40-50. Small effusion < 1 cm. cta chest: no pe, no chf Assessment/Plan pre-operative clearance (ORIF femur), s/p mechanical fall with fracture: - RCRI = 2, unknown functional status (probably reduced) - for intermediate risk surgery - no signs/sx of active ischemic heart dz and doubt decomp chf--resp status stable - no ischemia on nuclear stress test 5 mo ago - she has acceptable (intermediate) risk of periop CV complications and may proceed without further cardiac testing for the planned hip surgery systolic dysfunction, chronic mixed syst/diast chf - episode chf 06/08, EF mildly reduced then, diuresed in hospital - low bp's noted then so carvedilol held. Now pt reports she was not taking ARB at home either due to cough. Monitor bp, may consider bb for chf regimen if bp allows. - on torsemide 20 at home, cont same - should have sleep study as outpatient (if not previously done) to r/o LUCIUS as cause of nonisch CMP HTN - bp controlled off meds. - pt reports she was not taking coreg or arb at home anemia: - stable at recent baseline (hgb 8s) - per primary team hypoxia: -sat transiently 88% in ER (confirmed with RN who states this appeared real)-- up to 92% with NC -now maintaining normal oxygenation on suppl O2 which pt says she uses at home as well -? obesity/atelectasis -no pe or chf on cta chest cellulitis, +bld cxs: -abx per ID HLD - con't statin
[2016-10-31 11:16] LABS: CALCIUM 7.8 mg/dL (8.5-10.1); COCKROFT - GAULT 101.15; CREATININE 1.1 mg/dL (0.55-1.02); PHOSPHOROUS 5.1 mg/dL (2.5-4.9)
--- NOTE | 2016-10-31 11:39 | PN ---
Progress Note, Physician History of Present Illness: C/O L leg pain, dyspnea No c/o fever/ chills Blood c/s + grp A strep Fever, leukocytosis improved - Current Medication List Current Medications: Active Medications Acetaminophen (Tylenol -) 650 mg PO Q4H PRN PRN Reason: FEVER OR PAIN Last Admin: 10/31/16 06:46 Dose: 650 mg Atorvastatin Calcium (Lipitor -) 20 mg PO HS [facility] Last Admin: 10/30/16 23:00 Dose: 20 mg Docusate Sodium (Colace -) 100 mg PO BID [facility] Last Admin: 10/31/16 09:28 Dose: 100 mg Enoxaparin Sodium (Lovenox -) 40 mg SQ DAILY [facility] Last Admin: 10/31/16 09:29 Dose: 40 mg Glipizide (Glucotrol -) 5 mg PO BIDAC [facility] Last Admin: 10/31/16 06:42 Dose: 5 mg Piperacillin Sod/Tazobactam Sod (Zosyn 4.5gm Ivpb (Pre-Docked)) 100 mls @ 200 mls/hr IVPB Q8H-IV LISA PRN Reason: Protocol Last Admin: 10/31/16 09:30 Dose: 200 mls/hr Vancomycin HCl 1,250 mg/ (Sodium Chloride) 250 mls @ 166.667 mls/hr IVPB BID@ 1100,2300 [facility] Insulin Aspart (Novolog Vial Sliding Scale -) 1 vial SQ ACHS [facility] PRN Reason: Protocol Last Admin: 10/31/16 11:07 Dose: Not Given Levothyroxine Sodium (Synthroid -) 75 mcg PO DAILY@0700 [facility] Last Admin: 10/31/16 06:57 Dose: 75 mcg Metformin HCl (Glucophage -) 500 mg PO BIDAC [facility] Last Admin: 10/31/16 06:42 Dose: Not Given Ondansetron HCl (Zofran Injection) 4 mg IVPB Q6H PRN PRN Reason: NAUSEA Pantoprazole Sodium (Protonix -) 40 mg PO DAILY [facility] Last Admin: 10/31/16 09:28 Dose: 40 mg Polyethylene Glycol (Miralax (For Daily Use) -) 17 gm PO DAILY [facility] Last Admin: 10/31/16 09:30 Dose: 17 grams Torsemide (Demadex -) 20 mg PO DAILY [facility] Last Admin: 10/31/16 09:28 Dose: 20 mg - Objective Vital Signs: Vital Signs Temperature 98 F 10/31/16 08:03 Pulse Rate 73 10/31/16 08:03 Respiratory Rate 20 10/31/16 08:19 Blood Pressure 104/53 10/31/16 08:03 O2 Sat by Pulse Oximetry (%) 96 10/31/16 08:19 Constitutional: Yes: No Distress, Obese Eyes: Yes: Conjunctiva Clear Cardiovascular: Yes: Regular Rate and Rhythm, S1, S2 Respiratory: Yes: CTA Bilaterally Gastrointestinal: Yes: Normal Bowel Sounds, Soft, Abdomen, Obese. No: Tenderness Extremities: Yes: Other (decreased erythema/ warmth R LE + 2-3cm shallow R heel ulcer no drainage) Labs: CBC, BMP 10/31/16 05:35 10/31/16 05:35 INR, PTT INR 1.43 (0.82-1.09) H 10/30/16 08:25 Assessment/Plan S/P distal L femur fracture Grp A strep bacteremia/ sepsis secondary to skin source Cellulitis R LE- improved UTI Fever/ leukocytosis- improved D/C vancomycin Substitute clindamycin for tx grp A strep Await urine c/s
--- NOTE | 2016-10-31 13:23 | PN ---
Progress Note, Physician Chief Complaint: Ms Vázquez says she is having severe pain in her leg. No cp or n/v. Has shortness of breath with the pain. - Current Medication List Current Medications: Active Medications Acetaminophen (Tylenol -) 650 mg PO Q4H PRN PRN Reason: FEVER OR PAIN Last Admin: 10/31/16 06:46 Dose: 650 mg Atorvastatin Calcium (Lipitor -) 20 mg PO HS [facility] Last Admin: 10/30/16 23:00 Dose: 20 mg Docusate Sodium (Colace -) 100 mg PO BID [facility] Last Admin: 10/31/16 09:28 Dose: 100 mg Enoxaparin Sodium (Lovenox -) 40 mg SQ DAILY [facility] Last Admin: 10/31/16 09:29 Dose: 40 mg Glipizide (Glucotrol -) 5 mg PO BIDAC [facility] Last Admin: 10/31/16 06:42 Dose: 5 mg Piperacillin Sod/Tazobactam Sod (Zosyn 4.5gm Ivpb (Pre-Docked)) 100 mls @ 200 mls/hr IVPB Q8H-IV LISA PRN Reason: Protocol Last Admin: 10/31/16 09:30 Dose: 200 mls/hr Clindamycin Phosphate (Cleocin 900 Mg Premix Ivpb -) 50 mls @ 100 mls/hr IVPB Q8H-IV LISA Insulin Aspart (Novolog Vial Sliding Scale -) 1 vial SQ ACHS LISA PRN Reason: Protocol Last Admin: 10/31/16 11:07 Dose: Not Given Levothyroxine Sodium (Synthroid -) 75 mcg PO DAILY@0700 [facility] Last Admin: 10/31/16 06:57 Dose: 75 mcg Metformin HCl (Glucophage -) 500 mg PO BIDAC [facility] Last Admin: 10/31/16 06:42 Dose: Not Given Ondansetron HCl (Zofran Injection) 4 mg IVPB Q6H PRN PRN Reason: NAUSEA Pantoprazole Sodium (Protonix -) 40 mg PO DAILY [facility] Last Admin: 10/31/16 09:28 Dose: 40 mg Polyethylene Glycol (Miralax (For Daily Use) -) 17 gm PO DAILY [facility] Last Admin: 10/31/16 09:30 Dose: 17 grams Torsemide (Demadex -) 20 mg PO DAILY [facility] Last Admin: 10/31/16 09:28 Dose: 20 mg - Objective Vital Signs: Vital Signs Temperature 98 F 10/31/16 08:03 Pulse Rate 73 10/31/16 08:03 Respiratory Rate 20 10/31/16 08:19 Blood Pressure 104/53 10/31/16 08:03 O2 Sat by Pulse Oximetry (%) 96 10/31/16 08:19 Constitutional: Yes: No Distress, Calm, Obese Cardiovascular: Yes: Regular Rate and Rhythm. No: Gallop, Murmur, Rub Respiratory: Yes: Regular, CTA Bilaterally. No: Rales, Rhonchi, Wheezes Gastrointestinal: Yes: Normal Bowel Sounds, Soft. No: Distention, Tenderness Extremities: Yes: Erythema Edema: No Labs: CBC, BMP 10/31/16 05:35 10/31/16 05:35 INR, PTT INR 1.43 (0.82-1.09) H 10/30/16 08:25 Problem List - Problems (1) Fracture of femur, distal, closed Code(s): S72.409A - UNSP FRACTURE OF LOWER END OF UNSP FEMUR, INIT FOR CLOS FX Qualifiers: Encounter type: initial encounter Laterality: left (2) Cellulitis Code(s): L03.90 - CELLULITIS, UNSPECIFIED Qualifiers: Site of cellulitis: extremity Site of cellulitis of extremity: lower extremity Laterality: right Qualified Code(s): L03.115 - Cellulitis of right lower limb (3) UTI (urinary tract infection) Code(s): N39.0 - URINARY TRACT INFECTION, SITE NOT SPECIFIED Qualifiers: Urinary tract infection type: acute cystitis Hematuria presence: without hematuria Qualified Code(s): N30.00 - Acute cystitis without hematuria (4) Sepsis Code(s): A41.9 - SEPSIS, UNSPECIFIED ORGANISM (5) Diabetes Code(s): E11.9 - TYPE 2 DIABETES MELLITUS WITHOUT COMPLICATIONS Qualifiers: Diabetes mellitus type: type 2 Diabetes mellitus complication status: with skin complications Diabetes mellitus complication detail: with foot ulcer Diabetes mellitus longterm insulin use: with middle or intermediate school principal use Qualified Code(s): E11.621 - Type 2 diabetes mellitus with foot ulcer; L97.509 - Non-pressure chronic ulcer of other part of unspecified foot with unspecified severity; Z79.4 - long term care social worker (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 of insulin (6) Anemia Code(s): D64.9 - ANEMIA, UNSPECIFIED Qualifiers: Anemia type: unspecified type Qualified Code(s): D64.9 - Anemia, unspecified (7) Morbid obesity Code(s): E66.01 - MORBID (SEVERE) OBESITY DUE TO EXCESS CALORIES Qualifiers: Obesity type: due to excess calories Qualified Code(s): E66.01 - Morbid (severe) obesity due to excess calories (8) HTN (hypertension) Code(s): I10 - ESSENTIAL (PRIMARY) HYPERTENSION (9) HLD (hyperlipidemia) Code(s): E78.5 - HYPERLIPIDEMIA, UNSPECIFIED Assessment/Plan (1) Fracture of femur, distal, closed Assessment/Plan: -secondary to mechanical fall -ortho consulted and planning for surgery on Saturday Code(s): S72.409A - UNSP FRACTURE OF LOWER END OF UNSP FEMUR, INIT FOR CLOS FX Qualifiers: Encounter type: initial encounter Laterality: left (2) Cellulitis Assessment/Plan: -cellulitis on foot -ID following -continue zosyn, clindamycin added Code(s): L03.90 - CELLULITIS, UNSPECIFIED Qualifiers: Site of cellulitis: extremity Site of cellulitis of extremity: lower extremity Laterality: right Qualified Code(s): L03.115 - Cellulitis of right lower limb (3) UTI (urinary tract infection) Assessment/Plan: -cultures resulted -not the source of sepsis -antibiotics as above Code(s): N39.0 - URINARY TRACT INFECTION, SITE NOT SPECIFIED Qualifiers: Urinary tract infection type: acute cystitis Hematuria presence: without hematuria Qualified Code(s): N30.00 - Acute cystitis without hematuria (4) Sepsis Assessment/Plan: -as evidenced by leukocytosis, fevers, and tachycardia -continue antibiotics as above -growing beta hemolytic strep Code(s): A41.9 - SEPSIS, UNSPECIFIED ORGANISM (5) Diabetes Assessment/Plan: -continue glipizide and metformin -diabetic diet -FSBS and SSI Code(s): E11.9 - TYPE 2 DIABETES MELLITUS WITHOUT COMPLICATIONS Qualifiers: Diabetes mellitus type: type 2 Diabetes mellitus complication status: with skin complications Diabetes mellitus complication detail: with foot ulcer Diabetes mellitus middle or intermediate school principal insulin use: with longterm use Qualified Code(s): E11.621 - Type 2 diabetes mellitus with foot ulcer; L97.509 - Non-pressure chronic ulcer of other part of unspecified foot with unspecified severity; Z79.4 - halfway (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 of insulin (6) Anemia Assessment/Plan: -decreasing -monitor -may need transfusion Code(s): D64.9 - ANEMIA, UNSPECIFIED Qualifiers: Anemia type: unspecified type Qualified Code(s): D64.9 - Anemia, unspecified (7) Morbid obesity Assessment/Plan: -outpatient counselling Code(s): E66.01 - MORBID (SEVERE) OBESITY DUE TO EXCESS CALORIES Qualifiers: Obesity type: due to excess calories Qualified Code(s): E66.01 - Morbid (severe) obesity due to excess calories (8) HTN (hypertension) Assessment/Plan: -continue cozaar Code(s): I10 - ESSENTIAL (PRIMARY) HYPERTENSION (9) HLD (hyperlipidemia) Assessment/Plan: -continue lipitor Code(s): E78.5 - HYPERLIPIDEMIA, UNSPECIFIED
[2016-10-31] MEDS: CLINDAMYCIN 900 MG PREMIX IVPB 50 ML IVPB SCH ×2 (14:03→17:32)
[2016-10-31] MEDS: ATORVASTATIN CA 20 MG TABLET (FP) PO SCH (21:34)
[2016-10-31] MEDS ORDERED: KETOROLAC TROMETHAMINE 15 MG/ML VIAL IVPUSH ONE (22:30)
[2016-10-31] MEDS ORDERED: VANCOMYCIN 1,250 MG in SODIUM CHLORIDE 250 ML IVPB SCH (23:00)
[2016-11-01] MEDS ORDERED: PT OWN MED DRAWER 7, Y5N ONE (02:09)
[2016-11-01] MEDS: PIPERACILLIN/TAZOB 4.5 GM 100 ML IVPB SCH ×3 (02:34→17:03)
[2016-11-01] MEDS: CLINDAMYCIN 900 MG PREMIX IVPB 50 ML IVPB SCH ×3 (02:35→17:47)
[2016-11-01] MEDS: LEVOTHYROXINE NA 75 MCG TABLET (FP) PO SCH (06:44)
[2016-11-01] MEDS: INSULIN SLIDING SCALE (NOVOLOG) 1 VIAL SQ SCH ×4 (06:44→21:14)
[2016-11-01] MEDS: glipiZIDE 5 MG TABLET (FP) PO SCH ×2 (06:44→17:01)
--- NOTE | 2016-11-01 09:04 | PN ---
Progress Note (short form) - Note Progress Note: Pt seen and examined. She is stable, but c/o severe pain in the leg. Rec NPO after midnight tonight To OR for femur surgery in the AM if medically cleared
[2016-11-01] MEDS: ENOXAPARIN NA (PORCINE) 40 MG/0.4 ML DISP.SYRIN SQ SCH (09:53)
[2016-11-01] MEDS: TORSEMIDE 20 MG TABLET (FP) PO SCH (09:54)
[2016-11-01] MEDS: POLYETHYLENE GLYCOL 3350 119 GM BTL PO SCH (09:54)
[2016-11-01] MEDS: PANTOPRAZOLE 40 MG TABLET (FP) PO SCH (09:54)
[2016-11-01] MEDS: DOCUSATE SODIUM 100 MG CAPSULE (FP) PO SCH ×2 (09:55→21:14)
[2016-11-01 11:38] LABS: BASOPHIL 0.2 % (0-2.0); EOSINOPHIL 2.7 % (0-4.5); MCH 24.8 pg (25.7-33.7); MCHC 30.9 g/dl (32.0-36.0); MEAN PLT VOLUME 8.7 fl (7.5-11.1); NEUTROPHILS 82.2 % (42.8-82.8); PLATELET COUNT 199 K/MM3 (134-434); RDW 17.6 % (11.6-15.6); WHITE BLOOD COUNT 9.8 K/mm3 (4.0-10.0)
--- NOTE | 2016-11-01 11:52 | PN ---
Progress Note (short form) - Note Progress Note: s: no cp sob palps dizzy; +pain from hip fx o: Vital Signs Period Temp Pulse Resp BP Sys/Donohue Pulse Ox Last 24 Hr 98.1 F-98.4 F 88-94 18-20 95-111/45-71 95-95 nad no jvd rrr s1s2 no mrg cta bl nl eff aaox3 trace le edema bl, +chronic stasis changes abd nt nd pos bs no jaundice diaphoresis Current Medications Generic Name Dose Route Start Last Admin Trade Name Freq PRN Reason Stop Dose Admin Acetaminophen 650 mg 10/30/16 11:21 10/31/16 20:20 Tylenol - PO 650 mg Q4H PRN Administration FEVER OR PAIN Atorvastatin Calcium 20 mg 10/30/16 22:00 10/31/16 21:34 Lipitor - PO 20 mg HS LISA Administration Docusate Sodium 100 mg 10/30/16 22:00 11/01/16 09:55 Colace - PO 100 mg BID LISA Administration Enoxaparin Sodium 40 mg 10/31/16 10:00 11/01/16 09:53 Lovenox - SQ 40 mg DAILY LISA Administration Furosemide 20 mg 11/01/16 11:50 Lasix Injection - IVPUSH 11/01/16 11:51 ONCE ONE Glipizide 5 mg 10/30/16 16:30 11/01/16 06:44 Glucotrol - PO 5 mg BIDAC LIAS Administration Piperacillin Sod/Tazobactam Sod 100 mls @ 200 mls/hr 10/30/16 18:00 11/01/16 09 :53 Zosyn 4.5gm Ivpb (Pre-Docked) IVPB 200 mls/hr Q8H-IV LISA Administration Protocol Clindamycin Phosphate 50 mls @ 100 mls/hr 10/31/16 12:30 11/01/16 09:56 Cleocin 900 Mg Premix Ivpb - IVPB 100 mls/hr Q8H-IV LISA Administration Insulin Aspart 1 vial 10/30/16 16:30 11/01/16 06:44 Novolog Vial Sliding Scale - SQ 2 units ACHS LISA Administration Protocol Levothyroxine Sodium 75 mcg 10/31/16 07:00 11/01/16 06:44 Synthroid - PO 75 mcg DAILY@0700 LISA Administration Metformin HCl 500 mg 10/30/16 16:30 10/31/16 16:33 Glucophage - PO Not Given BIDAC LISA Ondansetron HCl 4 mg 10/30/16 11:21 Zofran Injection IVPB Q6H PRN NAUSEA Pantoprazole Sodium 40 mg 10/31/16 10:00 11/01/16 09:54 Protonix - PO 40 mg DAILY LISA Administration Polyethylene Glycol 17 gm 10/31/16 10:00 11/01/16 09:54 Miralax (For Daily Use) - PO 17 grams DAILY LISA Administration Torsemide 20 mg 10/31/16 10:00 11/01/16 09:54 Demadex - PO 20 mg DAILY LISA Administration CBC, BMP 11/01/16 11:15 stress MPI 06/08: no ischemic EKG changes. nl perfusion. EF 45%, global. Echo 02/2016: suboptimal. grossly nl lv size. Mild-mod LV dysfunction. RV not well seen. Mild ARLYN. Mod TR. RVSP 40-50. Small effusion < 1 cm. cta chest: no pe, no chf Assessment/Plan pre-operative clearance (ORIF femur), s/p mechanical fall with fracture: - RCRI = 2, unknown functional status (probably reduced) - for intermediate risk surgery - no signs/sx of active ischemic heart dz and doubt decomp chf--resp status stable - no ischemia on nuclear stress test 5 mo ago - she has acceptable (intermediate) risk of periop CV complications and may proceed without further cardiac testing for the planned hip surgery systolic dysfunction, chronic mixed syst/diast chf - episode chf 06/08, EF mildly reduced then, diuresed in hospital - low bp's noted then so carvedilol held. Now pt reports she was not taking ARB at home either due to cough. Monitor bp, may consider bb for chf regimen if bp allows. - on torsemide 20 at home, cont same - should have sleep study as outpatient (if not previously done) to r/o LUCIUS as cause of nonisch CMP HTN - bp controlled/low off meds. - pt reports she was not taking coreg or arb at home anemia: - baseline 8s - per primary team. getting prbcs today. hypoxia: -sat transiently 88% in ER (confirmed with RN who states this appeared real)-- up to 92% with NC -now maintaining normal oxygenation on suppl O2 which pt says she uses at home as well -? obesity/atelectasis -no pe or chf on cta chest cellulitis, +bld cxs: -abx per ID HLD - con't statin
[2016-11-01 11:53] LABS: CALCIUM 7.6 mg/dL (8.5-10.1); COCKROFT - GAULT 116.7985; MAGNESIUM 2.1 mg/dL (1.8-2.4); PHOSPHOROUS 3.8 mg/dL (2.5-4.9)
[2016-11-01] MEDS ORDERED: FUROSEMIDE 40 MG/4 ML INJECTABLE VIAL IVPUSH ONE (12:45)
--- NOTE | 2016-11-01 14:29 | PN ---
Progress Note, Physician Chief Complaint: Ms Vázquez is still having leg pain. No cp, sob, n/v. - Current Medication List Current Medications: Active Medications Acetaminophen (Tylenol -) 650 mg PO Q4H PRN PRN Reason: FEVER OR PAIN Last Admin: 10/31/16 20:20 Dose: 650 mg Atorvastatin Calcium (Lipitor -) 20 mg PO HS [facility] Last Admin: 10/31/16 21:34 Dose: 20 mg Docusate Sodium (Colace -) 100 mg PO BID [facility] Last Admin: 11/01/16 09:55 Dose: 100 mg Enoxaparin Sodium (Lovenox -) 40 mg SQ DAILY [facility] Last Admin: 11/01/16 09:53 Dose: 40 mg Glipizide (Glucotrol -) 5 mg PO BIDAC [facility] Last Admin: 11/01/16 06:44 Dose: 5 mg Piperacillin Sod/Tazobactam Sod (Zosyn 4.5gm Ivpb (Pre-Docked)) 100 mls @ 200 mls/hr IVPB Q8H-IV LISA PRN Reason: Protocol Last Admin: 11/01/16 09:53 Dose: 200 mls/hr Clindamycin Phosphate (Cleocin 900 Mg Premix Ivpb -) 50 mls @ 100 mls/hr IVPB Q8H-IV [facility] Last Admin: 11/01/16 09:56 Dose: 100 mls/hr Insulin Aspart (Novolog Vial Sliding Scale -) 1 vial SQ ACHS LISA PRN Reason: Protocol Last Admin: 11/01/16 11:57 Dose: 2 units Levothyroxine Sodium (Synthroid -) 75 mcg PO DAILY@0700 [facility] Last Admin: 11/01/16 06:44 Dose: 75 mcg Metformin HCl (Glucophage -) 500 mg PO BIDAC [facility] Last Admin: 10/31/16 16:33 Dose: Not Given Ondansetron HCl (Zofran Injection) 4 mg IVPB Q6H PRN PRN Reason: NAUSEA Pantoprazole Sodium (Protonix -) 40 mg PO DAILY [facility] Last Admin: 11/01/16 09:54 Dose: 40 mg Polyethylene Glycol (Miralax (For Daily Use) -) 17 gm PO DAILY [facility] Last Admin: 11/01/16 09:54 Dose: 17 grams Torsemide (Demadex -) 20 mg PO DAILY [facility] Last Admin: 11/01/16 09:54 Dose: 20 mg - Objective Vital Signs: Vital Signs Temperature 98.1 F 11/01/16 10:00 Pulse Rate 88 11/01/16 10:00 Respiratory Rate 20 11/01/16 10:00 Blood Pressure 98/53 11/01/16 10:00 O2 Sat by Pulse Oximetry (%) 95 11/01/16 10:00 Constitutional: Yes: No Distress, Calm, Obese Cardiovascular: Yes: Regular Rate and Rhythm. No: Gallop, Murmur, Rub Respiratory: Yes: Regular, CTA Bilaterally. No: Rales, Rhonchi, Wheezes Gastrointestinal: Yes: Normal Bowel Sounds, Soft. No: Distention, Tenderness Extremities: Yes: Erythema Edema: Yes Edema: LLE: 1+, RLE: 1+ Labs: CBC, BMP 11/01/16 11:15 11/01/16 11:15 INR, PTT INR 1.43 (0.82-1.09) H 10/30/16 08:25 Problem List - Problems (1) Fracture of femur, distal, closed Code(s): S72.409A - UNSP FRACTURE OF LOWER END OF UNSP FEMUR, INIT FOR CLOS FX Qualifiers: Encounter type: initial encounter Laterality: left (2) Cellulitis Code(s): L03.90 - CELLULITIS, UNSPECIFIED Qualifiers: Site of cellulitis: extremity Site of cellulitis of extremity: lower extremity Laterality: right Qualified Code(s): L03.115 - Cellulitis of right lower limb (3) UTI (urinary tract infection) Code(s): N39.0 - URINARY TRACT INFECTION, SITE NOT SPECIFIED Qualifiers: Urinary tract infection type: acute cystitis Hematuria presence: without hematuria Qualified Code(s): N30.00 - Acute cystitis without hematuria (4) Sepsis Code(s): A41.9 - SEPSIS, UNSPECIFIED ORGANISM (5) Diabetes Code(s): E11.9 - TYPE 2 DIABETES MELLITUS WITHOUT COMPLICATIONS Qualifiers: Diabetes mellitus type: type 2 Diabetes mellitus complication status: with skin complications Diabetes mellitus complication detail: with foot ulcer Diabetes mellitus international account executive insulin use: with skilled nursing use Qualified Code(s): E11.621 - Type 2 diabetes mellitus with foot ulcer; L97.509 - Non-pressure chronic ulcer of other part of unspecified foot with unspecified severity; Z79.4 - halfway (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 of insulin (6) Anemia Code(s): D64.9 - ANEMIA, UNSPECIFIED Qualifiers: Anemia type: unspecified type Qualified Code(s): D64.9 - Anemia, unspecified (7) Morbid obesity Code(s): E66.01 - MORBID (SEVERE) OBESITY DUE TO EXCESS CALORIES Qualifiers: Obesity type: due to excess calories Qualified Code(s): E66.01 - Morbid (severe) obesity due to excess calories (8) HTN (hypertension) Code(s): I10 - ESSENTIAL (PRIMARY) HYPERTENSION (9) HLD (hyperlipidemia) Code(s): E78.5 - HYPERLIPIDEMIA, UNSPECIFIED Assessment/Plan (1) Fracture of femur, distal, closed Assessment/Plan: -secondary to mechanical fall -ortho consulted and planning for surgery on Saturday Code(s): S72.409A - UNSP FRACTURE OF LOWER END OF UNSP FEMUR, INIT FOR CLOS FX Qualifiers: Encounter type: initial encounter Laterality: left (2) Cellulitis Assessment/Plan: -cellulitis on foot -suspect source of sepsis -on zosyn and clindamycin Code(s): L03.90 - CELLULITIS, UNSPECIFIED Qualifiers: Site of cellulitis: extremity Site of cellulitis of extremity: lower extremity Laterality: right Qualified Code(s): L03.115 - Cellulitis of right lower limb (3) UTI (urinary tract infection) Assessment/Plan: -growing klebsiella and e. coli -continue zosyn Code(s): N39.0 - URINARY TRACT INFECTION, SITE NOT SPECIFIED Qualifiers: Urinary tract infection type: acute cystitis Hematuria presence: without hematuria Qualified Code(s): N30.00 - Acute cystitis without hematuria (4) Sepsis Assessment/Plan: -improving -continue antibiotics as above -growing beta hemolytic strep Code(s): A41.9 - SEPSIS, UNSPECIFIED ORGANISM (5) Diabetes Assessment/Plan: -continue glipizide and metformin -diabetic diet -FSBS and SSI Code(s): E11.9 - TYPE 2 DIABETES MELLITUS WITHOUT COMPLICATIONS Qualifiers: Diabetes mellitus type: type 2 Diabetes mellitus complication status: with skin complications Diabetes mellitus complication detail: with foot ulcer Diabetes mellitus skilled nursing insulin use: with international account executive use Qualified Code(s): E11.621 - Type 2 diabetes mellitus with foot ulcer; L97.509 - Non-pressure chronic ulcer of other part of unspecified foot with unspecified severity; 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 (6) Anemia Assessment/Plan: -transfusion today Code(s): D64.9 - ANEMIA, UNSPECIFIED Qualifiers: Anemia type: unspecified type Qualified Code(s): D64.9 - Anemia, unspecified (7) Morbid obesity Assessment/Plan: -outpatient counselling Code(s): E66.01 - MORBID (SEVERE) OBESITY DUE TO EXCESS CALORIES Qualifiers: Obesity type: due to excess calories Qualified Code(s): E66.01 - Morbid (severe) obesity due to excess calories (8) HTN (hypertension) Assessment/Plan: -patient hypotensive, but think inaccurate secondary to arm size -monitor Code(s): I10 - ESSENTIAL (PRIMARY) HYPERTENSION (9) HLD (hyperlipidemia) Assessment/Plan: -continue lipitor Code(s): E78.5 - HYPERLIPIDEMIA, UNSPECIFIED
[2016-11-01] MEDS ORDERED: morphine CARPU-JECT 2 MG/1 ML DISP.SYRIN IVPUSH PRN (15:09)
[2016-11-01] MEDS ORDERED: FUROSEMIDE 40 MG/4 ML INJECTABLE VIAL ONE (15:28)
[2016-11-01] MEDS: oxyCODONE HCL 5 MG TABLET PO PRN ×2 (15:32→23:14)
--- NOTE | 2016-11-01 17:41 | PN ---
Progress Note, Physician History of Present Illness: C/O L LE pain No fever/ chills Temps down-afebrile WBC WNL - Current Medication List Current Medications: Active Medications Acetaminophen (Tylenol -) 650 mg PO Q4H PRN PRN Reason: FEVER OR PAIN Last Admin: 10/31/16 20:20 Dose: 650 mg Atorvastatin Calcium (Lipitor -) 20 mg PO HS [facility] Last Admin: 10/31/16 21:34 Dose: 20 mg Docusate Sodium (Colace -) 100 mg PO BID [facility] Last Admin: 11/01/16 09:55 Dose: 100 mg Enoxaparin Sodium (Lovenox -) 40 mg SQ DAILY [facility] Last Admin: 11/01/16 09:53 Dose: 40 mg Glipizide (Glucotrol -) 5 mg PO BIDAC [facility] Last Admin: 11/01/16 17:01 Dose: 5 mg Piperacillin Sod/Tazobactam Sod (Zosyn 4.5gm Ivpb (Pre-Docked)) 100 mls @ 200 mls/hr IVPB Q8H-IV [facility] PRN Reason: Protocol Last Admin: 11/01/16 17:03 Dose: 200 mls/hr Clindamycin Phosphate (Cleocin 900 Mg Premix Ivpb -) 50 mls @ 100 mls/hr IVPB Q8H-IV [facility] Last Admin: 11/01/16 09:56 Dose: 100 mls/hr Insulin Aspart (Novolog Vial Sliding Scale -) 1 vial SQ ACHS LISA PRN Reason: Protocol Last Admin: 11/01/16 17:02 Dose: 2 units Levothyroxine Sodium (Synthroid -) 75 mcg PO DAILY@0700 [facility] Last Admin: 11/01/16 06:44 Dose: 75 mcg Metformin HCl (Glucophage -) 500 mg PO BIDAC [facility] Last Admin: 10/31/16 16:33 Dose: Not Given Morphine Sulfate (Morphine Injection -) 2 mg IVPUSH Q4H PRN PRN Reason: PAIN Ondansetron HCl (Zofran Injection) 4 mg IVPB Q6H PRN PRN Reason: NAUSEA Oxycodone HCl (Roxicodone -) 10 mg PO Q4H PRN PRN Reason: PAIN Last Admin: 11/01/16 15:32 Dose: 10 mg Pantoprazole Sodium (Protonix -) 40 mg PO DAILY [facility] Last Admin: 11/01/16 09:54 Dose: 40 mg Polyethylene Glycol (Miralax (For Daily Use) -) 17 gm PO DAILY [facility] Last Admin: 11/01/16 09:54 Dose: 17 grams Torsemide (Demadex -) 20 mg PO DAILY [facility] Last Admin: 11/01/16 09:54 Dose: 20 mg - Objective Vital Signs: Vital Signs Temperature 98.1 F 11/01/16 10:00 Pulse Rate 88 11/01/16 10:00 Respiratory Rate 20 11/01/16 10:00 Blood Pressure 98/53 11/01/16 10:00 O2 Sat by Pulse Oximetry (%) 95 11/01/16 10:00 Constitutional: Yes: No Distress Eyes: Yes: Conjunctiva Clear Cardiovascular: Yes: Regular Rate and Rhythm, S1, S2 Respiratory: Yes: CTA Bilaterally Gastrointestinal: Yes: Normal Bowel Sounds, Soft, Abdomen, Obese. No: Tenderness Extremities: Yes: Other (decreased erythema/warmth R LE) Labs: CBC, BMP 11/01/16 11:15 11/01/16 11:15 INR, PTT INR 1.43 (0.82-1.09) H 10/30/16 08:25 Assessment/Plan S/P distal L femur fracture Grp A strep bacteremia/ sepsis secondary to skin source Cellulitis R LE- improved UTI Fever/ leukocytosis- improved D/C zosyn. Substitute ceftriaxone Continue clindamycin for tx grp A strep
[2016-11-01] MEDS ORDERED: INSULIN (NOVOLOG) ASPART 100 UNITS/ML 10ML VIAL ONE (21:01)
[2016-11-01] MEDS: ATORVASTATIN CA 20 MG TABLET (FP) PO SCH (21:13)
[2016-11-02] MEDS: CLINDAMYCIN 900 MG PREMIX IVPB 50 ML IVPB SCH ×3 (01:58→18:30)
[2016-11-02] MEDS: INSULIN SLIDING SCALE (NOVOLOG) 1 VIAL SQ SCH ×3 (06:04→21:57)
[2016-11-02] MEDS: glipiZIDE 5 MG TABLET (FP) PO SCH (06:04)
[2016-11-02] MEDS: LEVOTHYROXINE NA 75 MCG TABLET (FP) PO SCH (06:05)
[2016-11-02 08:53] LABS: BASOPHIL 0.2 % (0-2.0); EOSINOPHIL 3.9 % (0-4.5); MCH 25.3 pg (25.7-33.7); MCHC 31.3 g/dl (32.0-36.0); MEAN CELL VOLUME 80.8 fl (80-96); MEAN PLT VOLUME 8.8 fl (7.5-11.1); PLATELET COUNT 220 K/MM3 (134-434); RDW 17.4 % (11.6-15.6); WHITE BLOOD COUNT 10.6 K/mm3 (4.0-10.0)
[2016-11-02 09:04] LABS: INR 1.15 (0.82-1.09); PROTHROMBIN TIME (PATIENT) 12.7 SEC (9.98-11.88)
[2016-11-02] MEDS: TORSEMIDE 20 MG TABLET (FP) PO SCH (09:04)
[2016-11-02] MEDS: PANTOPRAZOLE 40 MG TABLET (FP) PO SCH (09:04)
[2016-11-02] MEDS: DOCUSATE SODIUM 100 MG CAPSULE (FP) PO SCH ×2 (09:05→21:58)
[2016-11-02] MEDS: ENOXAPARIN NA (PORCINE) 40 MG/0.4 ML DISP.SYRIN SQ SCH (09:05)
[2016-11-02] MEDS: POLYETHYLENE GLYCOL 3350 119 GM BTL PO SCH (09:05)
[2016-11-02 09:21] LABS: CALCIUM 7.8 mg/dL (8.5-10.1); MAGNESIUM 2.1 mg/dL (1.8-2.4)
[2016-11-02 09:23] LABS: COCKROFT - GAULT 112.9395; PHOSPHOROUS 3.7 mg/dL (2.5-4.9)
[2016-11-02] MEDS ORDERED: CEFTRIAXONE 100 ML IVPB SCH (10:00)
[2016-11-02] MEDS ORDERED: ceFAZolin SODIUM 1 GM VIAL ONE (11:08)
[2016-11-02] MEDS ORDERED: BUPIVACAINE HCL/PF 0.5% (5MG/ML) 10 ML VIAL ONE (12:05)
[2016-11-02] MEDS ORDERED: ROPIVACAINE HCL 0.5% 30ML VIAL ONE (12:07)
[2016-11-02] MEDS ORDERED: MIDAZOLAM HCL 2 MG/2 ML SINGLE DOSE VIAL ONE ×3 (12:08→13:28)
[2016-11-02] MEDS ORDERED: LIDOCAINE HCL 1%, 10 MG/ML (20ML VIAL) ONE (12:17)
[2016-11-02] MEDS ORDERED: ePHEDrine SULFATE 50 MG/1 ML AMPULE ONE (12:50)
[2016-11-02] MEDS ORDERED: SUCCINYLCHOLINE CHLORIDE 200 MG/10 ML VIAL ONE (12:50)
[2016-11-02] MEDS ORDERED: PROPOFOL 20 ML ONE ×2 (12:50)
[2016-11-02] MEDS ORDERED: SODIUM CHLORIDE 0.9% P/F 10 ML VIAL IJ ONE (13:44)
[2016-11-02] MEDS ORDERED: GLYCOPYRROLATE 0.2 MG/1 ML VIAL ONE (13:44)
[2016-11-02] MEDS ORDERED: VANCOMYCIN 1,000 MG VIAL (RESTRICTED TO ID ONLY) ONE ×2 (14:47→14:49)
--- NOTE | 2016-11-02 15:21 | PN ---
Progress Note, Physician Chief Complaint: Ms Vázquez says she is uncomfortable, is having pain at the surgery site. No cp , sob, n/v. Spoke with anesthesiologist and stated patient lost about 800mL of blood and had an episode of bradycardia and then tachycardia but that resolved. - Current Medication List Current Medications: Active Medications Acetaminophen (Tylenol -) 650 mg PO Q4H PRN PRN Reason: FEVER OR PAIN Last Admin: 10/31/16 20:20 Dose: 650 mg Atorvastatin Calcium (Lipitor -) 20 mg PO HS [facility] Last Admin: 11/01/16 21:13 Dose: 20 mg Docusate Sodium (Colace -) 100 mg PO BID [facility] Last Admin: 11/02/16 09:05 Dose: Not Given Enoxaparin Sodium (Lovenox -) 40 mg SQ DAILY [facility] Last Admin: 11/02/16 09:05 Dose: Not Given Glipizide (Glucotrol -) 5 mg PO BIDAC [facility] Last Admin: 11/02/16 06:04 Dose: Not Given Clindamycin Phosphate (Cleocin 900 Mg Premix Ivpb -) 50 mls @ 100 mls/hr IVPB Q8H-IV [facility] Last Admin: 11/02/16 09:04 Dose: 100 mls/hr Ceftriaxone Sodium (Rocephin 2gm Ivpb (Pre-Docked)) 100 mls @ 200 mls/hr IVPB DAILY [facility] Last Admin: 11/02/16 09:04 Dose: 200 mls/hr Insulin Aspart (Novolog Vial Sliding Scale -) 1 vial SQ ACHS LISA PRN Reason: Protocol Last Admin: 11/02/16 12:00 Dose: Not Given Levothyroxine Sodium (Synthroid -) 75 mcg PO DAILY@0700 [facility] Last Admin: 11/02/16 06:05 Dose: Not Given Metformin HCl (Glucophage -) 500 mg PO BIDAC [facility] Last Admin: 10/31/16 16:33 Dose: Not Given Morphine Sulfate (Morphine Injection -) 2 mg IVPUSH Q4H PRN PRN Reason: PAIN Ondansetron HCl (Zofran Injection) 4 mg IVPB Q6H PRN PRN Reason: NAUSEA Oxycodone HCl (Roxicodone -) 10 mg PO Q4H PRN PRN Reason: PAIN Last Admin: 11/01/16 23:14 Dose: 10 mg Pantoprazole Sodium (Protonix -) 40 mg PO DAILY [facility] Last Admin: 11/02/16 09:04 Dose: 40 mg Polyethylene Glycol (Miralax (For Daily Use) -) 17 gm PO DAILY [facility] Last Admin: 11/02/16 09:05 Dose: Not Given Torsemide (Demadex -) 20 mg PO DAILY [facility] Last Admin: 11/02/16 09:04 Dose: 20 mg - Objective Vital Signs: Vital Signs Temperature 98 F 11/02/16 10:00 Pulse Rate 85 11/02/16 10:00 Respiratory Rate 22 11/02/16 10:00 Blood Pressure 108/51 11/02/16 10:00 O2 Sat by Pulse Oximetry (%) 97 11/02/16 09:00 Constitutional: Yes: No Distress, Calm, Obese Cardiovascular: Yes: Regular Rate and Rhythm. No: Gallop, Murmur, Rub Respiratory: Yes: Regular, CTA Bilaterally. No: Rales, Rhonchi, Wheezes Gastrointestinal: Yes: Normal Bowel Sounds, Soft. No: Distention, Tenderness Extremities: Yes: WNL Edema: No Labs: CBC, BMP 11/02/16 07:30 11/02/16 07:30 INR, PTT INR 1.15 (0.82-1.09) H 11/02/16 07:30 Problem List - Problems (1) Fracture of femur, distal, closed Code(s): S72.409A - UNSP FRACTURE OF LOWER END OF UNSP FEMUR, INIT FOR CLOS FX Qualifiers: Encounter type: initial encounter Laterality: left (2) Cellulitis Code(s): L03.90 - CELLULITIS, UNSPECIFIED Qualifiers: Site of cellulitis: extremity Site of cellulitis of extremity: lower extremity Laterality: right Qualified Code(s): L03.115 - Cellulitis of right lower limb (3) UTI (urinary tract infection) Code(s): N39.0 - URINARY TRACT INFECTION, SITE NOT SPECIFIED Qualifiers: Urinary tract infection type: acute cystitis Hematuria presence: without hematuria Qualified Code(s): N30.00 - Acute cystitis without hematuria (4) Sepsis Code(s): A41.9 - SEPSIS, UNSPECIFIED ORGANISM (5) Diabetes Code(s): E11.9 - TYPE 2 DIABETES MELLITUS WITHOUT COMPLICATIONS Qualifiers: Diabetes mellitus type: type 2 Diabetes mellitus complication status: with skin complications Diabetes mellitus complication detail: with foot ulcer Diabetes mellitus watermaster insulin use: with watermaster use Qualified Code(s): E11.621 - Type 2 diabetes mellitus with foot ulcer; L97.509 - Non-pressure chronic ulcer of other part of unspecified foot with unspecified severity; Z79.4 - senior care (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 of insulin (6) Anemia Code(s): D64.9 - ANEMIA, UNSPECIFIED Qualifiers: Anemia type: unspecified type Qualified Code(s): D64.9 - Anemia, unspecified (7) Morbid obesity Code(s): E66.01 - MORBID (SEVERE) OBESITY DUE TO EXCESS CALORIES Qualifiers: Obesity type: due to excess calories Qualified Code(s): E66.01 - Morbid (severe) obesity due to excess calories (8) HTN (hypertension) Code(s): I10 - ESSENTIAL (PRIMARY) HYPERTENSION (9) HLD (hyperlipidemia) Code(s): E78.5 - HYPERLIPIDEMIA, UNSPECIFIED Assessment/Plan (1) Fracture of femur, distal, closed Assessment/Plan: -secondary to mechanical fall -s/p surgery -will check cbc and cardiac enzymes secondary to blood loss -PT and pain control Code(s): S72.409A - UNSP FRACTURE OF LOWER END OF UNSP FEMUR, INIT FOR CLOS FX Qualifiers: Encounter type: initial encounter Laterality: left (2) Cellulitis Assessment/Plan: -cellulitis on foot -suspect source of sepsis -continue clindamycin, zosyn changed to rocephin Code(s): L03.90 - CELLULITIS, UNSPECIFIED Qualifiers: Site of cellulitis: extremity Site of cellulitis of extremity: lower extremity Laterality: right Qualified Code(s): L03.115 - Cellulitis of right lower limb (3) UTI (urinary tract infection) Assessment/Plan: -growing klebsiella and e. coli -zosyn changed to rocephin Code(s): N39.0 - URINARY TRACT INFECTION, SITE NOT SPECIFIED Qualifiers: Urinary tract infection type: acute cystitis Hematuria presence: without hematuria Qualified Code(s): N30.00 - Acute cystitis without hematuria (4) Sepsis Assessment/Plan: -improving -continue antibiotics as above -ID following Code(s): A41.9 - SEPSIS, UNSPECIFIED ORGANISM (5) Diabetes Assessment/Plan: -continue glipizide and metformin -diabetic diet -FSBS and SSI Code(s): E11.9 - TYPE 2 DIABETES MELLITUS WITHOUT COMPLICATIONS Qualifiers: Diabetes mellitus type: type 2 Diabetes mellitus complication status: with skin complications Diabetes mellitus complication detail: with foot ulcer Diabetes mellitus watermaster insulin use: with watermaster use Qualified Code(s): E11.621 - Type 2 diabetes mellitus with foot ulcer; L97.509 - Non-pressure chronic ulcer of other part of unspecified foot with unspecified severity; 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 (6) Anemia Assessment/Plan: -s/p transfusion -elevated WBC secondary to transfusion -check cbc since had 800mL blood loss Code(s): D64.9 - ANEMIA, UNSPECIFIED Qualifiers: Anemia type: unspecified type Qualified Code(s): D64.9 - Anemia, unspecified (7) Morbid obesity Assessment/Plan: -outpatient counselling Code(s): E66.01 - MORBID (SEVERE) OBESITY DUE TO EXCESS CALORIES Qualifiers: Obesity type: due to excess calories Qualified Code(s): E66.01 - Morbid (severe) obesity due to excess calories (8) HTN (hypertension) Assessment/Plan: -monitor Code(s): I10 - ESSENTIAL (PRIMARY) HYPERTENSION (9) HLD (hyperlipidemia) Assessment/Plan: -continue lipitor Code(s): E78.5 - HYPERLIPIDEMIA, UNSPECIFIED
--- NOTE | 2016-11-02 15:43 | OP ---
Operative Note - Note: Operative Date: 11/02/16 ([facility]) Pre-Operative Diagnosis: left periprosthetic distal femur fx Operation: left revision tkr Post-Operative Diagnosis: Same as Pre-op Surgeon: Alirio Felder Business Services Representative: Anshu Portillo Anesthesiologist/ENERGY SALES CONSULTANT: Giovanni Sanchez Anesthesia: Spinal, Local Specimens Removed: bone fragments Estimated Blood Loss (mls): 800 Operative Report Dictated: Yes
[2016-11-02] MEDS ORDERED: ACETAMINOPHEN 1000 MG/100 ML VIAL (NON FORMULARY) IVPB ONE ×2 (16:07→16:20)
[2016-11-02] MEDS ORDERED: IBUPROFEN 800 MG/8 ML IJ IVPB ONE ×2 (16:07→16:30)
--- NOTE | 2016-11-02 16:18 | OP ---
DATE OF OPERATION: 11/02/2016 PREOPERATIVE DIAGNOSIS: Comminuted and displaced left distal periprosthetic femur fracture. POSTOPERATIVE DIAGNOSIS: Comminuted and displaced left distal periprosthetic femur fracture. PROCEDURE: Revision total knee replacement with a left distal femoral replacement. SURGICAL ATTENDING: Alirio Felder MD COMMUNITY SERVICE PATROL OFFICER: SANDRITA Koroma ANESTHESIA: Spinal and regional. CLOSURE: A [employer] distal femoral replacement system with a medium body, a 127 x 11-mm femoral elisabeth, a small tibial base plate with an 80 x 10-mm tibial elisabeth, 16 polyethylene, No. 1 Vicryl fascia, 0 and 2-0 for subcutaneous, and 3-0 Monocryl subcuticular skin to close the skin. ESTIMATED BLOOD LOSS: Approximately 400 mL. COMPLICATIONS: None. CONDITION: To recovery room in stable condition. INDICATION FOR OPERATIVE PROCEDURE: Patient is a 71-year-old obese female status post partial knee replacement done 5-1/2 years ago status post falling and tripping and fracturing her distal femur. Patient was admitted to [facility] on October 30, 2016, with an additional cellulitis on her lower extremity. IV antibiotics were first administered to control the cellulitis and on the day surgery patient's cellulitis had cleared sufficiently and white count had returned to normal and patient was afebrile. Risks, benefits, alternatives were discussed with patient in great detail. Due to the large nature of the surgery and the patient's obesity, patient has a high risk of complications of blood loss, infection, DVT, pulmonary embolus, etc. Patient understands but wanted to proceed with the surgery. DESCRIPTION OF OPERATIVE PROCEDURE: Patient taken to the operating room on November 02, 2016. Spinal and regional anesthesia was administered by the anesthesiologist. IV antibiotics had already been administered on the floor by the infectious disease doctors and had been standing for the past 3 days and would continue postoperatively as well. A well-padded pneumatic tourniquet was placed on the left proximal thigh. The left lower extremity was prepped and draped in the usual sterile fashion. The leg was exsanguinated with an Esmarch bandage. Tourniquet was inflated to 300 mmHg. A 12- to 15-cm longitudinal midline incision utilizing partly the previous scar from the previous surgery was incised. Hemostasis achieved using Bovie cautery. Sharp dissection was carried down to the level of the extensor mechanism which was medialized to perform the procedure. Medial parapatellar arthrotomy was then made using a 10 blade and the patella was inverted and the knee was flexed. The subperiosteal dissection was done to skeletonize the distal femur which was fractured transversely and longitudinally into the joint. Subperiosteal dissection was made with care to stay directly on the bone so as to protect the neurovascular structures posteriorly. This was done with the knee in flexion as well to help again protect the neurovascular structures. The distal femur was cut to make it flush with the most proximal aspect of the fracture. It was measured for length in order to choose the appropriate distal femoral replacement. The intramedullary canal of the femur was reamed until a 12 achieved good chatter. It was decided to use a 10 x 127-mm elisabeth with a medium body and achieved a good limb length. Next, attention was directed to the tibia. The tibia was just below the component that was on the medial plateau. Intramedullary reaming was done to sound the tibial plateau until a 12-mm reamer achieved chatter. It was thus decided to use a 10-mm intramedullary elisabeth. The small base plate was used. The cut was cleaned up and alignment was ensured in rotation and in varus, valgus, and anterior posterior. A trial 16 component was applied and with the knee in extension had good tension, good flexion, and acceptable tracking of the patella. The patella itself was inspected, found to be stable, slight wear on its lateral facet, but was left otherwise in situ. The external rotation of the femoral component was notched into the femur to be able to reproduce it with the real component. The keel was made in the tibia. Trial components were removed. The knee was pulse antibiotic irrigated. The real components were then cemented in using modern generation cement techniques with antibiotic cement and pressurization. A cement restricter was placed above and below to help with pressurization as well. The knee was pressurized in extension to allow all cement to get hard. Then, the knee was thoroughly inspected to remove all excess cement. The real 16 was applied and then the knee was clipped into place. Again, range of motion and stability were described earlier. There was good tracking of the patella as well. The knee was pulse antibiotic irrigated. Vancomycin powder was placed in the wound. The medial parapatellar arthrotomy was then closed using No. 1 Vicryl, 0 and 2-0 subcutaneous, and 3-0 Monocryl subcuticular with skin glue for skin. A sterile pressure dressing was applied. Patient awakened from anesthesia and transferred to recovery in stable condition. Of note, group home through the case the tourniquet was really not able to achieve a good seal and every time we flexed the knee more blood would pass the tourniquet. We thus deflated the tourniquet after only about 30 minutes and did the rest of the case without tourniquet in place. Patient tolerated the procedure well with no complications. Kaylie [id number]
--- NOTE | 2016-11-02 16:18 | PN ---
Progress Note, Physician History of Present Illness: Post op L TKR revision Seen in PACU No c/o knee pain Tolerating antibiotics - Current Medication List Current Medications: Active Medications Acetaminophen (Tylenol -) 650 mg PO Q4H PRN PRN Reason: FEVER OR PAIN Last Admin: 10/31/16 20:20 Dose: 650 mg Acetaminophen (Ofirmev Injection -) 1,000 mg IVPB ONCE ONE Stop: 11/02/16 16:08 Atorvastatin Calcium (Lipitor -) 20 mg PO HS [facility] Last Admin: 11/01/16 21:13 Dose: 20 mg Docusate Sodium (Colace -) 100 mg PO BID [facility] Last Admin: 11/02/16 09:05 Dose: Not Given Enoxaparin Sodium (Lovenox -) 40 mg SQ DAILY [facility] Last Admin: 11/02/16 09:05 Dose: Not Given Fentanyl (Sublimaze Injection -) 25 mcg IVPUSH [id number] PRN PRN Reason: PAIN Stop: 11/05/16 16:07 Glipizide (Glucotrol -) 5 mg PO BIDAC [facility] Last Admin: 11/02/16 06:04 Dose: Not Given Clindamycin Phosphate (Cleocin 900 Mg Premix Ivpb -) 50 mls @ 100 mls/hr IVPB Q8H-IV [facility] Last Admin: 11/02/16 09:04 Dose: 100 mls/hr Ceftriaxone Sodium (Rocephin 2gm Ivpb (Pre-Docked)) 100 mls @ 200 mls/hr IVPB DAILY [facility] Last Admin: 11/02/16 09:04 Dose: 200 mls/hr Lactated Ringer's (Lactated Ringers Solution) 1,000 mls @ 125 mls/hr IV ASDIR [facility] Ibuprofen (Caldolor Injection -) 800 mg IVPB ONCE ONE Stop: 11/02/16 16:08 Insulin Aspart (Novolog Vial Sliding Scale -) 1 vial SQ ACHS LISA PRN Reason: Protocol Last Admin: 11/02/16 12:00 Dose: Not Given Levothyroxine Sodium (Synthroid -) 75 mcg PO DAILY@0700 [facility] Last Admin: 11/02/16 06:05 Dose: Not Given Metformin HCl (Glucophage -) 500 mg PO BIDAC [facility] Last Admin: 10/31/16 16:33 Dose: Not Given Morphine Sulfate (Morphine Injection -) 2 mg IVPUSH Q4H PRN PRN Reason: PAIN Ondansetron HCl (Zofran Injection) 4 mg IVPB Q6H PRN PRN Reason: NAUSEA Oxycodone HCl (Roxicodone -) 10 mg PO Q4H PRN PRN Reason: PAIN Last Admin: 11/01/16 23:14 Dose: 10 mg Pantoprazole Sodium (Protonix -) 40 mg PO DAILY [facility] Last Admin: 11/02/16 09:04 Dose: 40 mg Polyethylene Glycol (Miralax (For Daily Use) -) 17 gm PO DAILY [facility] Last Admin: 11/02/16 09:05 Dose: Not Given Torsemide (Demadex -) 20 mg PO DAILY [facility] Last Admin: 11/02/16 09:04 Dose: 20 mg - Objective Vital Signs: Vital Signs Temperature 98 F 11/02/16 10:00 Pulse Rate 85 11/02/16 10:00 Respiratory Rate 22 11/02/16 10:00 Blood Pressure 108/51 11/02/16 10:00 O2 Sat by Pulse Oximetry (%) 97 11/02/16 09:00 Constitutional: Yes: No Distress Eyes: Yes: Conjunctiva Clear Cardiovascular: Yes: Regular Rate and Rhythm, S1, S2 Respiratory: Yes: CTA Bilaterally Gastrointestinal: Yes: Normal Bowel Sounds, Soft. No: Tenderness Extremities: Yes: Other (decreased erythema R LE) Labs: CBC, BMP 11/02/16 07:30 INR, PTT INR 1.15 (0.82-1.09) H 11/02/16 07:30 Assessment/Plan S/P distal L femur fracture Post op L TKR revision Grp A strep bacteremia/ sepsis secondary to skin source Cellulitis R LE- improved UTI Fever/ leukocytosis- improved Continue ceftriaxone / clindamycin for tx grp A strep
[2016-11-02 16:19] LABS: BASOPHIL 0.1 % (0-2.0); EOSINOPHIL 0.8 % (0-4.5); MCH 24.5 pg (25.7-33.7); MCHC 30.1 g/dl (32.0-36.0); MEAN CELL VOLUME 81.4 fl (80-96); MEAN PLT VOLUME 8.7 fl (7.5-11.1); NEUTROPHILS 90.4 % (42.8-82.8); PLATELET COUNT 269 K/MM3 (134-434); RDW 17.8 % (11.6-15.6); WHITE BLOOD COUNT 18.7 K/mm3 (4.0-10.0)
[2016-11-02 17:19] LABS: TROPONIN I < 0.02 ng/ml (0.00-0.05)
[2016-11-02] MEDS ORDERED: ONDANSETRON 4 MG/2 ML VIAL IVPB PRN (17:35)
[2016-11-02] MEDS: morphine CARPU-JECT 2 MG/1 ML DISP.SYRIN IVPUSH PRN (20:21)
[2016-11-02] MEDS ORDERED: INSULIN (NOVOLOG) ASPART 100 UNITS/ML 10ML VIAL ONE (21:56)
[2016-11-02] MEDS: ATORVASTATIN CA 20 MG TABLET (FP) PO SCH (21:58)
[2016-11-02] MEDS: LACTATED RINGERS SOLUTION 1,000 ML IV SCH (21:58)
[2016-11-02 22:20] LABS: PLATELET COMMENT2 NO CLOTTING DETECTED; PLATELET ESTIMATE ADEQUATE (NORMAL)
[2016-11-02 22:21] LABS: TROPONIN I < 0.02 ng/ml (0.00-0.05)
[2016-11-03] MEDS: CLINDAMYCIN 900 MG PREMIX IVPB 50 ML IVPB SCH ×3 (01:58→17:06)
[2016-11-03] MEDS: morphine CARPU-JECT 2 MG/1 ML DISP.SYRIN IVPUSH PRN ×3 (03:30→19:52)
[2016-11-03] MEDS: INSULIN SLIDING SCALE (NOVOLOG) 1 VIAL SQ SCH ×4 (06:10→22:45)
[2016-11-03] MEDS: glipiZIDE 5 MG TABLET (FP) PO SCH ×2 (06:10→17:06)
[2016-11-03] MEDS: LEVOTHYROXINE NA 75 MCG TABLET (FP) PO SCH (06:10)
[2016-11-03] MEDS: metFORMIN HCL 500 MG TABLET (FP) PO SCH ×2 (06:14→17:06)
[2016-11-03 07:43] LABS: MCH 26.4 pg (25.7-33.7); MCHC 32.2 g/dl (32.0-36.0); MEAN CELL VOLUME 82.3 fl (80-96); MEAN PLT VOLUME 8.3 fl (7.5-11.1); PLATELET COUNT 201 K/MM3 (134-434); RDW 17.4 % (11.6-15.6); WHITE BLOOD COUNT 13.9 K/mm3 (4.0-10.0)
[2016-11-03 07:48] LABS: BASOPHIL 0.1 % (0-2.0); EOSINOPHIL 0.7 % (0-4.5); MCH 26.3 pg (25.7-33.7); MCHC 31.9 g/dl (32.0-36.0); MEAN CELL VOLUME 82.5 fl (80-96); MEAN PLT VOLUME 8.2 fl (7.5-11.1); NEUTROPHILS 85.6 % (42.8-82.8); PLATELET COUNT 208 K/MM3 (134-434); RDW 17.3 % (11.6-15.6); WHITE BLOOD COUNT 14.2 K/mm3 (4.0-10.0)
[2016-11-03] MEDS ORDERED: ASPIRIN 325 MG TABLET PO SCH (08:00)
[2016-11-03 08:17] LABS: CALCIUM 7.5 mg/dL (8.5-10.1); COCKROFT - GAULT 127.993; CREATININE 0.9 mg/dL (0.55-1.02); PHOSPHOROUS 3.5 mg/dL (2.5-4.9)
[2016-11-03 08:29] LABS: TROPONIN I < 0.02 ng/ml (0.00-0.05)
[2016-11-03] MEDS: CEFTRIAXONE 100 ML IVPB SCH (09:39)
[2016-11-03] MEDS: DOCUSATE SODIUM 100 MG CAPSULE (FP) PO SCH ×2 (09:41→22:34)
[2016-11-03] MEDS: ENOXAPARIN NA (PORCINE) 40 MG/0.4 ML DISP.SYRIN SQ SCH (09:41)
[2016-11-03] MEDS: PANTOPRAZOLE 40 MG TABLET (FP) PO SCH (09:41)
[2016-11-03] MEDS: POLYETHYLENE GLYCOL 3350 119 GM BTL PO SCH (09:42)
[2016-11-03] MEDS: TORSEMIDE 20 MG TABLET (FP) PO SCH (09:42)
--- NOTE | 2016-11-03 11:03 | PN ---
Progress Note, Physician History of Present Illness: POD #1 repair of distal L femur fracture, revision of L TKR C/O pain, relieved with analgesics No c/o fever/ chills WBC improved - Current Medication List Current Medications: Active Medications Acetaminophen (Tylenol -) 650 mg PO Q4H PRN PRN Reason: FEVER OR PAIN Atorvastatin Calcium (Lipitor -) 20 mg PO HS [facility] Last Admin: 11/02/16 21:58 Dose: 20 mg Docusate Sodium (Colace -) 100 mg PO BID [facility] Last Admin: 11/03/16 09:41 Dose: 100 mg Enoxaparin Sodium (Lovenox -) 40 mg SQ DAILY [facility] Last Admin: 11/03/16 09:41 Dose: 40 mg Glipizide (Glucotrol -) 5 mg PO BIDAC [facility] Last Admin: 11/03/16 06:10 Dose: 5 mg Lactated Ringer's (Lactated Ringers Solution) 1,000 mls @ 125 mls/hr IV ASDIR [facility] Last Admin: 11/02/16 21:58 Dose: 125 mls/hr Ceftriaxone Sodium (Rocephin 2gm Ivpb (Pre-Docked)) 100 mls @ 200 mls/hr IVPB DAILY [facility] Last Admin: 11/03/16 09:39 Dose: 200 mls/hr Clindamycin Phosphate (Cleocin 900 Mg Premix Ivpb -) 50 mls @ 100 mls/hr IVPB Q8H-IV [facility] Last Admin: 11/03/16 10:56 Dose: 100 mls/hr Insulin Aspart (Novolog Vial Sliding Scale -) 1 vial SQ ACHS LISA PRN Reason: Protocol Last Admin: 11/03/16 06:10 Dose: 4 units Levothyroxine Sodium (Synthroid -) 75 mcg PO DAILY@0700 [facility] Last Admin: 11/03/16 06:10 Dose: 75 mcg Metformin HCl (Glucophage -) 500 mg PO BIDAC [facility] Last Admin: 11/03/16 06:14 Dose: 500 mg Morphine Sulfate (Morphine Injection -) 2 mg IVPUSH Q4H PRN PRN Reason: PAIN Last Admin: 11/03/16 08:41 Dose: 2 mg Ondansetron HCl (Zofran Injection) 4 mg IVPB Q6H PRN PRN Reason: NAUSEA Oxycodone HCl (Roxicodone -) 10 mg PO Q4H PRN PRN Reason: PAIN Pantoprazole Sodium (Protonix -) 40 mg PO DAILY [facility] Last Admin: 11/03/16 09:41 Dose: 40 mg Polyethylene Glycol (Miralax (For Daily Use) -) 17 gm PO DAILY [facility] Last Admin: 11/03/16 09:42 Dose: 17 gm Torsemide (Demadex -) 20 mg PO DAILY [facility] Last Admin: 11/03/16 09:42 Dose: 20 mg - Objective Vital Signs: Vital Signs Temperature 97.7 F 11/03/16 05:52 Pulse Rate 83 11/03/16 05:52 Respiratory Rate 20 11/03/16 05:52 Blood Pressure 109/64 11/03/16 05:52 O2 Sat by Pulse Oximetry (%) 94 L 11/02/16 21:00 Constitutional: Yes: No Distress, Obese Eyes: Yes: Conjunctiva Clear Cardiovascular: Yes: Regular Rate and Rhythm, S1, S2 Respiratory: Yes: CTA Bilaterally Gastrointestinal: Yes: Normal Bowel Sounds, Soft, Abdomen, Obese Extremities: Yes: Other (post op dressing in place L LE erythema R LE nearly all resolved) Labs: CBC, BMP 11/03/16 06:00 11/03/16 06:00 INR, PTT INR 1.15 (0.82-1.09) H 11/02/16 07:30 Assessment/Plan S/P distal L femur fracture Post op repair of fracture, L TKR revision Grp A strep bacteremia/ sepsis secondary to skin source Cellulitis R LE- improved UTI Fever/ leukocytosis- improved Continue ceftriaxone / clindamycin for tx grp A strep
--- NOTE | 2016-11-03 11:09 | PN ---
Progress Note (short form) - Note Progress Note: s: no cp sob palps dizzy; +pain s/p surgery o: Vital Signs Period Temp Pulse Resp BP Sys/Donohue Pulse Ox Last 24 Hr 97.2 F-97.8 F 78-94 16-22 109-146/50-70 94-98 nad no jvd rrr s1s2 no mrg cta bl nl eff aaox3 trace le edema bl, +chronic stasis changes abd nt nd pos bs no jaundice diaphoresis Current Medications Generic Name Dose Route Start Last Admin Trade Name Freq PRN Reason Stop Dose Admin Acetaminophen 650 mg 11/02/16 17:35 Tylenol - PO Q4H PRN FEVER OR PAIN Atorvastatin Calcium 20 mg 11/02/16 22:00 11/02/16 21:58 Lipitor - PO 20 mg HS LISA Administration Docusate Sodium 100 mg 11/02/16 22:00 11/03/16 09:41 Colace - PO 100 mg BID LISA Administration Enoxaparin Sodium 40 mg 11/03/16 10:00 11/03/16 09:41 Lovenox - SQ 40 mg DAILY [facility] Administration Glipizide 5 mg 11/03/16 07:00 11/03/16 06:10 Glucotrol - PO 5 mg BIDAC LISA Administration Lactated Ringer's 1,000 mls @ 125 mls/hr 11/02/16 16:15 11/02/16 21:58 Lactated Ringers Solution IV 125 mls/hr ASDIR [facility] Administration Ceftriaxone Sodium 100 mls @ 200 mls/hr 11/03/16 10:00 11/03/16 09:39 Rocephin 2gm Ivpb (Pre-Docked) IVPB 200 mls/hr DAILY [facility] Administration Clindamycin Phosphate 50 mls @ 100 mls/hr 11/02/16 18:00 11/03/16 10:56 Cleocin 900 Mg Premix Ivpb - IVPB 100 mls/hr Q8H-IV [facility] Administration Insulin Aspart 1 vial 11/02/16 22:00 11/03/16 06:10 Novolog Vial Sliding Scale - SQ 4 units ACHS LISA Administration Protocol Levothyroxine Sodium 75 mcg 11/03/16 07:00 11/03/16 06:10 Synthroid - PO 75 mcg DAILY@0700 [facility] Administration Metformin HCl 500 mg 11/03/16 07:00 11/03/16 06:14 Glucophage - PO 500 mg BIDAC [facility] Administration Morphine Sulfate 2 mg 11/02/16 17:35 11/03/16 08:41 Morphine Injection - IVPUSH 2 mg Q4H PRN Administration PAIN Ondansetron HCl 4 mg 11/02/16 17:35 Zofran Injection IVPB Q6H PRN NAUSEA Oxycodone HCl 10 mg 11/02/16 17:35 Roxicodone - PO Q4H PRN PAIN Pantoprazole Sodium 40 mg 11/03/16 10:00 11/03/16 09:41 Protonix - PO 40 mg DAILY [facility] Administration Polyethylene Glycol 17 gm 11/03/16 10:00 11/03/16 09:42 Miralax (For Daily Use) - PO 17 gm DAILY [facility] Administration Torsemide 20 mg 11/03/16 10:00 11/03/16 09:42 Demadex - PO 20 mg DAILY [facility] Administration CBC, BMP 11/03/16 06:00 11/03/16 06:00 stress MPI 06/08: no ischemic EKG changes. nl perfusion. EF 45%, global. Echo 02/2016: suboptimal. grossly nl lv size. Mild-mod LV dysfunction. RV not well seen. Mild ARLYN. Mod TR. RVSP 40-50. Small effusion < 1 cm. cta chest: no pe, no chf Assessment/Plan systolic dysfunction, chronic mixed syst/diast chf - episode chf 06/08, EF mildly reduced then, diuresed in hospital - low bp's noted then so carvedilol held. Now pt reports she was not taking ARB at home either due to cough. Monitor bp, may consider bb for chf regimen if bp allows. - on torsemide 20 at home, cont same - should have sleep study as outpatient (if not previously done) to r/o LUCIUS as cause of nonisch CMP HTN - bp controlled/low off meds. - pt reports she was not taking coreg or arb at home anemia: - baseline 8s, stable hypoxia: -sat transiently 88% in ER (confirmed with RN who states this appeared real)-- up to 92% with NC -now maintaining normal oxygenation on suppl O2 which pt says she uses at home as well -? obesity/atelectasis related -no pe or chf on cta chest cellulitis, +bld cxs: -abx per ID HLD - con't statin
[2016-11-03] MEDS: oxyCODONE HCL 5 MG TABLET PO PRN ×2 (11:40→22:37)
[2016-11-03] MEDS: ACETAMINOPHEN 325 MG TABLET (FP) PO PRN ×2 (11:41→22:37)
--- NOTE | 2016-11-03 11:50 | PN ---
Progress Note (short form) - Note Progress Note: Ortho Pt seen and examined s/p left revision tkr Selected Entries 11/03/16 10:00 Temperature 98.1 F Pulse Rate 81 Respiratory 20 Rate Blood Pressure 126/67 Laboratory Tests 11/03/16 06:00 WBC 13.9 H Hgb 8.7 L Hct 27.2 L Plt Count 201 dressing c/d/i, calf soft. nt rom 0-30, nvi a/p PT, wbat ROM exercises monitor h/h dvt ppx pain control will follow
--- NOTE | 2016-11-03 11:53 | PN ---
Progress Note (short form) - Note Progress Note: Patient seen and examined. C/O Pain at the operated site. Denies chest pain, shortness of breath, palpitation or dizziness. Afebrile. - Current Medication List Current Medications: Active Medications Acetaminophen (Tylenol -) 650 mg PO Q4H PRN PRN Reason: FEVER OR PAIN Last Admin: 10/31/16 20:20 Dose: 650 mg Atorvastatin Calcium (Lipitor -) 20 mg PO HS [facility] Last Admin: 11/01/16 21:13 Dose: 20 mg Docusate Sodium (Colace -) 100 mg PO BID [facility] Last Admin: 11/02/16 09:05 Dose: Not Given Enoxaparin Sodium (Lovenox -) 40 mg SQ DAILY [facility] Last Admin: 11/02/16 09:05 Dose: Not Given Glipizide (Glucotrol -) 5 mg PO BIDAC [facility] Last Admin: 11/02/16 06:04 Dose: Not Given Clindamycin Phosphate (Cleocin 900 Mg Premix Ivpb -) 50 mls @ 100 mls/hr IVPB Q8H-IV [facility] Last Admin: 11/02/16 09:04 Dose: 100 mls/hr Ceftriaxone Sodium (Rocephin 2gm Ivpb (Pre-Docked)) 100 mls @ 200 mls/hr IVPB DAILY [facility] Last Admin: 11/02/16 09:04 Dose: 200 mls/hr Insulin Aspart (Novolog Vial Sliding Scale -) 1 vial SQ ACHS LISA PRN Reason: Protocol Last Admin: 11/02/16 12:00 Dose: Not Given Levothyroxine Sodium (Synthroid -) 75 mcg PO DAILY@0700 [facility] Last Admin: 11/02/16 06:05 Dose: Not Given Metformin HCl (Glucophage -) 500 mg PO BIDAC [facility] Last Admin: 10/31/16 16:33 Dose: Not Given Morphine Sulfate (Morphine Injection -) 2 mg IVPUSH Q4H PRN PRN Reason: PAIN Ondansetron HCl (Zofran Injection) 4 mg IVPB Q6H PRN PRN Reason: NAUSEA Oxycodone HCl (Roxicodone -) 10 mg PO Q4H PRN PRN Reason: PAIN Last Admin: 11/01/16 23:14 Dose: 10 mg Pantoprazole Sodium (Protonix -) 40 mg PO DAILY [facility] Last Admin: 11/02/16 09:04 Dose: 40 mg Polyethylene Glycol (Miralax (For Daily Use) -) 17 gm PO DAILY [facility] Last Admin: 11/02/16 09:05 Dose: Not Given Torsemide (Demadex -) 20 mg PO DAILY [facility] Last Admin: 11/02/16 09:04 Dose: 20 mg - Objective Vital Signs: Vital Signs Period Temp Pulse Resp BP Sys/Donohue Pulse Ox Last 24 Hr 97.2 F-98.1 F 78-94 16-22 109-146/50-70 94-98 Constitutional: Yes: No Distress, Calm, Obese Cardiovascular: Yes: Regular Rate and Rhythm. No: Gallop, Murmur, Rub Respiratory: Yes: Regular, CTA Bilaterally. No: Rales, Rhonchi, Wheezes Gastrointestinal: Yes: Normal Bowel Sounds, Soft. No: Distention, Tenderness Extremities: Yes: WNL Edema: No Labs: CBC, BMP 11/03/16 06:00 11/03/16 06:00 Problem List - Problems (1) Fracture of femur, distal, closed Code(s): S72.409A - UNSP FRACTURE OF LOWER END OF UNSP FEMUR, INIT FOR CLOS FX Qualifiers: Encounter type: initial encounter Laterality: left (2) Cellulitis Code(s): L03.90 - CELLULITIS, UNSPECIFIED Qualifiers: Site of cellulitis: extremity Site of cellulitis of extremity: lower extremity Laterality: right Qualified Code(s): L03.115 - Cellulitis of right lower limb (3) UTI (urinary tract infection) Code(s): N39.0 - URINARY TRACT INFECTION, SITE NOT SPECIFIED Qualifiers: Urinary tract infection type: acute cystitis Hematuria presence: without hematuria Qualified Code(s): N30.00 - Acute cystitis without hematuria (4) Sepsis Code(s): A41.9 - SEPSIS, UNSPECIFIED ORGANISM (5) Diabetes Code(s): E11.9 - TYPE 2 DIABETES MELLITUS WITHOUT COMPLICATIONS Qualifiers: Diabetes mellitus type: type 2 Diabetes mellitus complication status: with skin complications Diabetes mellitus complication detail: with foot ulcer Diabetes mellitus nursing home insulin use: with rat exterminator use Qualified Code(s): E11.621 - Type 2 diabetes mellitus with foot ulcer; L97.509 - Non-pressure chronic ulcer of other part of unspecified foot with unspecified severity; Z79.4 - terminal press operator (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 of insulin (6) Anemia Code(s): D64.9 - ANEMIA, UNSPECIFIED Qualifiers: Anemia type: unspecified type Qualified Code(s): D64.9 - Anemia, unspecified (7) Morbid obesity Code(s): E66.01 - MORBID (SEVERE) OBESITY DUE TO EXCESS CALORIES Qualifiers: Obesity type: due to excess calories Qualified Code(s): E66.01 - Morbid (severe) obesity due to excess calories (8) HTN (hypertension) Code(s): I10 - ESSENTIAL (PRIMARY) HYPERTENSION (9) HLD (hyperlipidemia) Code(s): E78.5 - HYPERLIPIDEMIA, UNSPECIFIED Assessment/Plan (1) Fracture of femur, distal, closed Assessment/Plan: -secondary to mechanical fall -s/p surgery -Pain management -PT as tolerated Code(s): S72.409A - UNSP FRACTURE OF LOWER END OF UNSP FEMUR, INIT FOR CLOS FX Qualifiers: Encounter type: initial encounter Laterality: left (2) Cellulitis Assessment/Plan: -cellulitis on foot -suspect source of sepsis -continue clindamycin, rocephin Code(s): L03.90 - CELLULITIS, UNSPECIFIED Qualifiers: Site of cellulitis: extremity Site of cellulitis of extremity: lower extremity Laterality: right Qualified Code(s): L03.115 - Cellulitis of right lower limb (3) UTI (urinary tract infection) Assessment/Plan: -growing klebsiella and e. coli -continue rocephin Code(s): N39.0 - URINARY TRACT INFECTION, SITE NOT SPECIFIED Qualifiers: Urinary tract infection type: acute cystitis Hematuria presence: without hematuria Qualified Code(s): N30.00 - Acute cystitis without hematuria (4) Sepsis Assessment/Plan: -improving -continue antibiotics as above -ID following Code(s): A41.9 - SEPSIS, UNSPECIFIED ORGANISM (5) Diabetes Assessment/Plan: -continue glipizide and metformin -diabetic diet -FSBS and SSI Code(s): E11.9 - TYPE 2 DIABETES MELLITUS WITHOUT COMPLICATIONS Qualifiers: Diabetes mellitus type: type 2 Diabetes mellitus complication status: with skin complications Diabetes mellitus complication detail: with foot ulcer Diabetes mellitus rat exterminator insulin use: with nursing home use Qualified Code(s): E11.621 - Type 2 diabetes mellitus with foot ulcer; L97.509 - Non-pressure chronic ulcer of other part of unspecified foot with unspecified severity; Z79.4 - terminal press operator (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 of insulin (6) Anemia Assessment/Plan: -s/p transfusion -H/H stable. Code(s): D64.9 - ANEMIA, UNSPECIFIED Qualifiers: Anemia type: unspecified type Qualified Code(s): D64.9 - Anemia, unspecified (7) Morbid obesity Assessment/Plan: -outpatient counselling Code(s): E66.01 - MORBID (SEVERE) OBESITY DUE TO EXCESS CALORIES Qualifiers: Obesity type: due to excess calories Qualified Code(s): E66.01 - Morbid (severe) obesity due to excess calories (8) HTN (hypertension) Assessment/Plan: -monitor Code(s): I10 - ESSENTIAL (PRIMARY) HYPERTENSION (9) HLD (hyperlipidemia) Assessment/Plan: -continue lipitor Code(s): E78.5 - HYPERLIPIDEMIA, UNSPECIFIED
[2016-11-03] MEDS: LACTATED RINGERS SOLUTION 1,000 ML IV SCH ×2 (13:49→17:03)
--- NOTE | 2016-11-03 21:35 | PN ---
Progress Note (short form) - Note Progress Note: ANESTHESIOLOGY POST-OP CHECK 71F s/p left knee replacement revision with femoral nerve block and under spinal anesthesia, POD #1. No acute complaints. Denies N/V, backache, headache, numbness, weakness. Tolerating PO, shook in place. Pain 5/10 and tolerable. Vital Signs Temperature 98.7 F 11/03/16 21:20 Pulse Rate 80 11/03/16 21:20 Respiratory Rate 20 11/03/16 21:20 Blood Pressure 120/56 11/03/16 21:20 O2 Sat by Pulse Oximetry (%) 93 L 11/03/16 09:00 Active Medications Acetaminophen (Tylenol -) 650 mg PO Q4H PRN PRN Reason: FEVER OR PAIN Last Admin: 11/03/16 11:41 Dose: 650 mg Atorvastatin Calcium (Lipitor -) 20 mg PO HS [facility] Last Admin: 11/02/16 21:58 Dose: 20 mg Docusate Sodium (Colace -) 100 mg PO BID [facility] Last Admin: 11/03/16 09:41 Dose: 100 mg Enoxaparin Sodium (Lovenox -) 40 mg SQ DAILY [facility] Last Admin: 11/03/16 09:41 Dose: 40 mg Glipizide (Glucotrol -) 5 mg PO BIDAC [facility] Last Admin: 11/03/16 17:06 Dose: 5 mg Lactated Ringer's (Lactated Ringers Solution) 1,000 mls @ 125 mls/hr IV ASDIR [facility] Last Admin: 11/03/16 17:03 Dose: Not Given Ceftriaxone Sodium (Rocephin 2gm Ivpb (Pre-Docked)) 100 mls @ 200 mls/hr IVPB DAILY [facility] Last Admin: 11/03/16 09:39 Dose: 200 mls/hr Clindamycin Phosphate (Cleocin 900 Mg Premix Ivpb -) 50 mls @ 100 mls/hr IVPB Q8H-IV [facility] Last Admin: 11/03/16 17:06 Dose: 100 mls/hr Insulin Aspart (Novolog Vial Sliding Scale -) 1 vial SQ ACHS LISA PRN Reason: Protocol Last Admin: 11/03/16 17:04 Dose: Not Given Levothyroxine Sodium (Synthroid -) 75 mcg PO DAILY@0700 [facility] Last Admin: 11/03/16 06:10 Dose: 75 mcg Metformin HCl (Glucophage -) 500 mg PO BIDAC [facility] Last Admin: 11/03/16 17:06 Dose: 500 mg Morphine Sulfate (Morphine Injection -) 2 mg IVPUSH Q4H PRN PRN Reason: PAIN Last Admin: 11/03/16 19:52 Dose: 2 mg Ondansetron HCl (Zofran Injection) 4 mg IVPB Q6H PRN PRN Reason: NAUSEA Oxycodone HCl (Roxicodone -) 10 mg PO Q4H PRN PRN Reason: PAIN Last Admin: 11/03/16 11:40 Dose: 10 mg Pantoprazole Sodium (Protonix -) 40 mg PO DAILY [facility] Last Admin: 11/03/16 09:41 Dose: 40 mg Polyethylene Glycol (Miralax (For Daily Use) -) 17 gm PO DAILY [facility] Last Admin: 11/03/16 09:42 Dose: 17 gm Torsemide (Demadex -) 20 mg PO DAILY [facility] Last Admin: 11/03/16 09:42 Dose: 20 mg Gen: awake, alert Ext: No apparent motor or sensory deficits of B/L lower extremities. No apparent anesthesia complications. Pain controlled. Continue management as per primary team.
[2016-11-03] MEDS: ATORVASTATIN CA 20 MG TABLET (FP) PO SCH (22:34)
[2016-11-03] MEDS ORDERED: INSULIN (NOVOLOG) ASPART 100 UNITS/ML 10ML VIAL ONE (22:36)
[2016-11-04] MEDS: CLINDAMYCIN 900 MG PREMIX IVPB 50 ML IVPB SCH ×3 (02:06→17:11)
[2016-11-04] MEDS: LACTATED RINGERS SOLUTION 1,000 ML IV SCH ×2 (03:56→21:50)
[2016-11-04] MEDS: metFORMIN HCL 500 MG TABLET (FP) PO SCH ×2 (05:59→17:08)
[2016-11-04] MEDS: glipiZIDE 5 MG TABLET (FP) PO SCH ×2 (05:59→17:08)
[2016-11-04] MEDS: LEVOTHYROXINE NA 75 MCG TABLET (FP) PO SCH (05:59)
[2016-11-04] MEDS: INSULIN SLIDING SCALE (NOVOLOG) 1 VIAL SQ SCH ×4 (05:59→21:50)
[2016-11-04 08:59] LABS: MCH 26.5 pg (25.7-33.7); MCHC 32.1 g/dl (32.0-36.0); MEAN CELL VOLUME 82.5 fl (80-96); MEAN PLT VOLUME 8.8 fl (7.5-11.1); PLATELET COUNT 200 K/MM3 (134-434); RDW 17.6 % (11.6-15.6); WHITE BLOOD COUNT 12.6 K/mm3 (4.0-10.0)
[2016-11-04] MEDS: oxyCODONE HCL 5 MG TABLET PO PRN ×2 (09:21→16:15)
[2016-11-04] MEDS: CEFTRIAXONE 100 ML IVPB SCH (09:21)
[2016-11-04] MEDS: ACETAMINOPHEN 325 MG TABLET (FP) PO PRN ×2 (09:22→16:14)
[2016-11-04] MEDS: TORSEMIDE 20 MG TABLET (FP) PO SCH (09:24)
[2016-11-04] MEDS: ENOXAPARIN NA (PORCINE) 40 MG/0.4 ML DISP.SYRIN SQ SCH (09:24)
[2016-11-04] MEDS: PANTOPRAZOLE 40 MG TABLET (FP) PO SCH (09:24)
[2016-11-04] MEDS: DOCUSATE SODIUM 100 MG CAPSULE (FP) PO SCH ×2 (09:24→21:50)
[2016-11-04 09:25] LABS: ALBUMIN 2.2 g/dl (3.4-5.0); ANION GAP 12 (8-16); CALCIUM 7.5 mg/dL (8.5-10.1); CO2 28 mmol/L (21-32); CREATININE 0.8 mg/dL (0.55-1.02); GLUCOSE,RANDOM 120 mg/dL (74-106); SGOT/AST 22 U/L (15-37); SGPT/ALT 35 U/L (12-78)
[2016-11-04 09:27] LABS: ALK PHOS 86 U/L (45-117); BILIRUBIN,TOTAL 0.4 mg/dL (0.2-1.0); TOT PROT 5.6 g/dl (6.4-8.2)
[2016-11-04 09:34] LABS: ANISOCYTOSIS 1+; HYPOCHROMIA FEW; METAMYELOCYTE 1 % (0-2); MICROCYTOSIS 1+; PLATELET ESTIMATE ADEQUATE (NORMAL); POLYCHROMASIA FEW
--- NOTE | 2016-11-04 11:08 | PN ---
Progress Note (short form) - Note Progress Note: C/O Pain at the operated sit. Afebrile. Denies chest pain, shortness of breath, palpitation or dizziness. Denies nausea, vomiting, abdominal pain. - Current Medication List Current Medications: Active Medications Acetaminophen (Tylenol -) 650 mg PO Q4H PRN PRN Reason: FEVER OR PAIN Last Admin: 10/31/16 20:20 Dose: 650 mg Atorvastatin Calcium (Lipitor -) 20 mg PO HS [facility] Last Admin: 11/01/16 21:13 Dose: 20 mg Docusate Sodium (Colace -) 100 mg PO BID [facility] Last Admin: 11/02/16 09:05 Dose: Not Given Enoxaparin Sodium (Lovenox -) 40 mg SQ DAILY [facility] Last Admin: 11/02/16 09:05 Dose: Not Given Glipizide (Glucotrol -) 5 mg PO BIDAC [facility] Last Admin: 11/02/16 06:04 Dose: Not Given Clindamycin Phosphate (Cleocin 900 Mg Premix Ivpb -) 50 mls @ 100 mls/hr IVPB Q8H-IV [facility] Last Admin: 11/02/16 09:04 Dose: 100 mls/hr Ceftriaxone Sodium (Rocephin 2gm Ivpb (Pre-Docked)) 100 mls @ 200 mls/hr IVPB DAILY [facility] Last Admin: 11/02/16 09:04 Dose: 200 mls/hr Insulin Aspart (Novolog Vial Sliding Scale -) 1 vial SQ ACHS [facility] PRN Reason: Protocol Last Admin: 11/02/16 12:00 Dose: Not Given Levothyroxine Sodium (Synthroid -) 75 mcg PO DAILY@0700 [facility] Last Admin: 11/02/16 06:05 Dose: Not Given Metformin HCl (Glucophage -) 500 mg PO BIDAC [facility] Last Admin: 10/31/16 16:33 Dose: Not Given Morphine Sulfate (Morphine Injection -) 2 mg IVPUSH Q4H PRN PRN Reason: PAIN Ondansetron HCl (Zofran Injection) 4 mg IVPB Q6H PRN PRN Reason: NAUSEA Oxycodone HCl (Roxicodone -) 10 mg PO Q4H PRN PRN Reason: PAIN Last Admin: 11/01/16 23:14 Dose: 10 mg Pantoprazole Sodium (Protonix -) 40 mg PO DAILY [facility] Last Admin: 11/02/16 09:04 Dose: 40 mg Polyethylene Glycol (Miralax (For Daily Use) -) 17 gm PO DAILY [facility] Last Admin: 11/02/16 09:05 Dose: Not Given Torsemide (Demadex -) 20 mg PO DAILY [facility] Last Admin: 11/02/16 09:04 Dose: 20 mg - Objective Vital Signs: Vital Signs Period Temp Pulse Resp BP Sys/Donohue Pulse Ox Last 24 Hr 98.2 F-98.7 F 80-81 20-20 116-120/56-57 93 Constitutional: Yes: No Distress, Calm, Obese Cardiovascular: Yes: Regular Rate and Rhythm. No: Gallop, Murmur, Rub Respiratory: Yes: Regular, CTA Bilaterally. No: Rales, Rhonchi, Wheezes Gastrointestinal: Yes: Normal Bowel Sounds, Soft. No: Distention, Tenderness Extremities: Yes: WNL Edema: No Labs: CBC, BMP 11/04/16 07:15 11/04/16 07:15 Problem List - Problems (1) Fracture of femur, distal, closed Code(s): S72.409A - UNSP FRACTURE OF LOWER END OF UNSP FEMUR, INIT FOR CLOS FX Qualifiers: Encounter type: initial encounter Laterality: left (2) Cellulitis Code(s): L03.90 - CELLULITIS, UNSPECIFIED Qualifiers: Site of cellulitis: extremity Site of cellulitis of extremity: lower extremity Laterality: right Qualified Code(s): L03.115 - Cellulitis of right lower limb (3) UTI (urinary tract infection) Code(s): N39.0 - URINARY TRACT INFECTION, SITE NOT SPECIFIED Qualifiers: Urinary tract infection type: acute cystitis Hematuria presence: without hematuria Qualified Code(s): N30.00 - Acute cystitis without hematuria (4) Sepsis Code(s): A41.9 - SEPSIS, UNSPECIFIED ORGANISM (5) Diabetes Code(s): E11.9 - TYPE 2 DIABETES MELLITUS WITHOUT COMPLICATIONS Qualifiers: Diabetes mellitus type: type 2 Diabetes mellitus complication status: with skin complications Diabetes mellitus complication detail: with foot ulcer Diabetes mellitus care home insulin use: with laborer marine terminal use Qualified Code(s): E11.621 - Type 2 diabetes mellitus with foot ulcer; L97.509 - Non-pressure chronic ulcer of other part of unspecified foot with unspecified severity; Z79.4 - laborer marine terminal (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 of insulin (6) Anemia Code(s): D64.9 - ANEMIA, UNSPECIFIED Qualifiers: Anemia type: unspecified type Qualified Code(s): D64.9 - Anemia, unspecified (7) Morbid obesity Code(s): E66.01 - MORBID (SEVERE) OBESITY DUE TO EXCESS CALORIES Qualifiers: Obesity type: due to excess calories Qualified Code(s): E66.01 - Morbid (severe) obesity due to excess calories (8) HTN (hypertension) Code(s): I10 - ESSENTIAL (PRIMARY) HYPERTENSION (9) HLD (hyperlipidemia) Code(s): E78.5 - HYPERLIPIDEMIA, UNSPECIFIED Assessment/Plan (1) Fracture of femur, distal, closed Assessment/Plan: -secondary to mechanical fall -s/p surgery -Pain management -PT as tolerated Code(s): S72.409A - UNSP FRACTURE OF LOWER END OF UNSP FEMUR, INIT FOR CLOS FX Qualifiers: Encounter type: initial encounter Laterality: left (2) Cellulitis Assessment/Plan: -cellulitis on foot -suspect source of sepsis -continue clindamycin, rocephin Code(s): L03.90 - CELLULITIS, UNSPECIFIED Qualifiers: Site of cellulitis: extremity Site of cellulitis of extremity: lower extremity Laterality: right Qualified Code(s): L03.115 - Cellulitis of right lower limb (3) UTI (urinary tract infection) Assessment/Plan: -growing klebsiella and e. coli -continue rocephin Code(s): N39.0 - URINARY TRACT INFECTION, SITE NOT SPECIFIED Qualifiers: Urinary tract infection type: acute cystitis Hematuria presence: without hematuria Qualified Code(s): N30.00 - Acute cystitis without hematuria (4) Sepsis Assessment/Plan: -improving -continue antibiotics as above -ID following Code(s): A41.9 - SEPSIS, UNSPECIFIED ORGANISM (5) Diabetes Assessment/Plan: -continue glipizide and metformin -diabetic diet -FSBS and SSI Code(s): E11.9 - TYPE 2 DIABETES MELLITUS WITHOUT COMPLICATIONS Qualifiers: Diabetes mellitus type: type 2 Diabetes mellitus complication status: with skin complications Diabetes mellitus complication detail: with foot ulcer Diabetes mellitus laborer marine terminal insulin use: with care home use Qualified Code(s): E11.621 - Type 2 diabetes mellitus with foot ulcer; L97.509 - Non-pressure chronic ulcer of other part of unspecified foot with unspecified severity; Z79.4 - [facility] (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 of insulin (6) Anemia Assessment/Plan: -s/p transfusion -H/H trending down. -Continue to monitor closely Code(s): D64.9 - ANEMIA, UNSPECIFIED Qualifiers: Anemia type: unspecified type Qualified Code(s): D64.9 - Anemia, unspecified (7) Morbid obesity Assessment/Plan: -outpatient counselling Code(s): E66.01 - MORBID (SEVERE) OBESITY DUE TO EXCESS CALORIES Qualifiers: Obesity type: due to excess calories Qualified Code(s): E66.01 - Morbid (severe) obesity due to excess calories (8) HTN (hypertension) Assessment/Plan: -monitor Code(s): I10 - ESSENTIAL (PRIMARY) HYPERTENSION (9) HLD (hyperlipidemia) Assessment/Plan: -continue lipitor Code(s): E78.5 - HYPERLIPIDEMIA, UNSPECIFIED
[2016-11-04] MEDS: POLYETHYLENE GLYCOL 3350 119 GM BTL PO SCH (14:33)
--- NOTE | 2016-11-04 16:29 | PN ---
Progress Note (short form) - Note Progress Note: Ortho Pt seen and examined s/p left revision tkr Selected Entries 11/04/16 13:32 Temperature 98.4 F Pulse Rate 85 Blood Pressure 120/60 Laboratory Tests 11/04/16 07:15 WBC 12.6 H Hgb 8.1 L Hct 25.2 L Plt Count 200 dressing c/d/i, calf soft. nt rom 0-30, nvi a/p PT, wbat ROM exercises monitor h/h dvt ppx pain control will follow
[2016-11-04] MEDS: ATORVASTATIN CA 20 MG TABLET (FP) PO SCH (21:49)
[2016-11-05] MEDS: CLINDAMYCIN 900 MG PREMIX IVPB 50 ML IVPB SCH ×3 (01:56→17:14)
[2016-11-05] MEDS: LACTATED RINGERS SOLUTION 1,000 ML IV SCH ×2 (06:17→16:55)
[2016-11-05] MEDS: glipiZIDE 5 MG TABLET (FP) PO SCH ×2 (06:17→16:57)
[2016-11-05] MEDS: metFORMIN HCL 500 MG TABLET (FP) PO SCH ×2 (06:17→16:57)
[2016-11-05] MEDS: LEVOTHYROXINE NA 75 MCG TABLET (FP) PO SCH (06:17)
[2016-11-05] MEDS: INSULIN SLIDING SCALE (NOVOLOG) 1 VIAL SQ SCH ×4 (06:18→21:55)
[2016-11-05] MEDS: morphine CARPU-JECT 2 MG/1 ML DISP.SYRIN IVPUSH PRN (06:41)
[2016-11-05] MEDS: PANTOPRAZOLE 40 MG TABLET (FP) PO SCH (09:19)
[2016-11-05] MEDS: ENOXAPARIN NA (PORCINE) 40 MG/0.4 ML DISP.SYRIN SQ SCH (09:19)
[2016-11-05] MEDS: oxyCODONE HCL 5 MG TABLET PO PRN (09:19)
[2016-11-05] MEDS: DOCUSATE SODIUM 100 MG CAPSULE (FP) PO SCH ×2 (09:19→21:53)
[2016-11-05] MEDS: TORSEMIDE 20 MG TABLET (FP) PO SCH (09:19)
[2016-11-05] MEDS: ACETAMINOPHEN 325 MG TABLET (FP) PO PRN (09:20)
[2016-11-05] MEDS: CEFTRIAXONE 100 ML IVPB SCH (09:23)
--- NOTE | 2016-11-05 09:47 | PN ---
Progress Note (short form) - Note Progress Note: Ortho Pt seen and examined s/p left revision tkr Selected Entries 11/05/16 06:00 Temperature 98.0 F Pulse Rate 84 Respiratory 20 Rate Blood Pressure 116/50 Laboratory Tests 11/04/16 07:15 WBC 12.6 H Hgb 8.1 L Hct 25.2 L Plt Count 200 dressing c/d/i, calf soft. nt rom 0-30, nvi a/p PT, wbat ROM exercises monitor h/h dvt ppx pain control will follow
[2016-11-05] MEDS: POLYETHYLENE GLYCOL 3350 119 GM BTL PO SCH (11:05)
--- NOTE | 2016-11-05 11:12 | CONS ---
DATE OF CONSULTATION: DATE OF DICTATION: 10/31/2016 REASON FOR CONSULTATION: The patient is a 71-year-old morbidly obese female evaluated for sepsis. HISTORY OF PRESENT ILLNESS: The patient had sustained a mechanical fall after trying to transfer from the bed to a chair. She developed severe left lower extremity pain. She was evaluated in the emergency room where x-rays showed a comminuted fracture of the distal left femur. In addition she was noted to have a cellulitis of the right lower extremity. In the emergency room, patient was febrile with an elevated white blood cell count. She was empirically treated with Zosyn and vancomycin. At the present time, she complains of left lower extremity pain. She denies any high-grade fever or shaking chills. She denies any traumatic injury to her right lower extremity. Patient has a non-healing ulcer present on the right heel for which [facility]. PAST MEDICAL HISTORY: Positive for morbid obesity, insulin-dependent diabetes mellitus, hypertension, hyperlipidemia, congestive heart failure, hypothyroidism, nephrolithiasis, osteomyelitis of the right foot. Her last hospital admission for cellulitis was in May of 2016. PAST SURGICAL HISTORY: Status post left total knee replacement. ALLERGIES: To CODEINE and TRAMADOL. MEDICATIONS: Aspirin, Zocor, Demadex, glipizide, Synthroid. SOCIAL HISTORY: She lives at home. Negative for tobacco or alcohol use. SYSTEMS REVIEW: Neurologic: No loss of consciousness, seizure activity, or focal weakness. Cardiac: Negative for chest pain or palpitations. Respiratory: Negative for cough or sputum production. Gastrointestinal: Negative for vomiting or diarrhea. Genitourinary: Negative for urinary tract infection. LABORATORY DATA: White count on admission 19,0000. Creatinine 1.0. Urinalysis 587 white cells. Blood and urine cultures pending. PHYSICAL EXAMINATION: General: Patient is in moderate distress secondary to left lower extremity pain. Vital signs: Temperature 98, maximum temperature 101, blood pressure 73, pulse 20 and regular, respirations 20 and regular. HEENT: Sclerae anicteric. Heart: Heart sounds S1, S2. Lungs: Clear. Abdomen: Massively obese, soft, nontender. Extremities: Left lower extremity is shortened. Right lower extremity with confluent erythema and warmth at present in the right lower extremity from below the knee to the foot. IMPRESSION: 1. Status post distal left femur fracture. 2. Cellulitis of the right lower extremity. 3. Fever and leukocytosis. 4. Morbid obesity. 5. Diabetes mellitus. Await cultures, empiric antibiotic coverage with Zosyn and vancomycin pending culture results, orthopedic followup. Will follow. Thank you for the kind referral. FIDELINA BUITRAGO M.D. [id number]
--- NOTE | 2016-11-05 12:11 | PN ---
Progress Note, Physician History of Present Illness: OOB in chair Was unable to ambulate with PT this am No c/o fever/ chills Afebrile WBC improved - Current Medication List Current Medications: Active Medications Acetaminophen (Tylenol -) 650 mg PO Q4H PRN PRN Reason: FEVER OR PAIN Last Admin: 11/05/16 09:20 Dose: 650 mg Atorvastatin Calcium (Lipitor -) 20 mg PO HS [facility] Last Admin: 11/04/16 21:49 Dose: 20 mg Docusate Sodium (Colace -) 100 mg PO BID [facility] Last Admin: 11/05/16 09:19 Dose: 100 mg Enoxaparin Sodium (Lovenox -) 40 mg SQ DAILY [facility] Last Admin: 11/05/16 09:19 Dose: 40 mg Glipizide (Glucotrol -) 5 mg PO BIDAC [facility] Last Admin: 11/05/16 06:17 Dose: 5 mg Lactated Ringer's (Lactated Ringers Solution) 1,000 mls @ 125 mls/hr IV ASDIR [facility] Last Admin: 11/05/16 06:17 Dose: 125 mls/hr Ceftriaxone Sodium (Rocephin 2gm Ivpb (Pre-Docked)) 100 mls @ 200 mls/hr IVPB DAILY [facility] Last Admin: 11/05/16 09:23 Dose: 200 mls/hr Clindamycin Phosphate (Cleocin 900 Mg Premix Ivpb -) 50 mls @ 100 mls/hr IVPB Q8H-IV [facility] Last Admin: 11/05/16 11:05 Dose: 100 mls/hr Insulin Aspart (Novolog Vial Sliding Scale -) 1 vial SQ ACHS [facility] PRN Reason: Protocol Last Admin: 11/05/16 11:49 Dose: Not Given Levothyroxine Sodium (Synthroid -) 75 mcg PO DAILY@0700 [facility] Last Admin: 11/05/16 06:17 Dose: 75 mcg Metformin HCl (Glucophage -) 500 mg PO BIDAC [facility] Last Admin: 11/05/16 06:17 Dose: 500 mg Morphine Sulfate (Morphine Injection -) 2 mg IVPUSH Q4H PRN PRN Reason: PAIN Last Admin: 11/05/16 06:41 Dose: 2 mg Ondansetron HCl (Zofran Injection) 4 mg IVPB Q6H PRN PRN Reason: NAUSEA Oxycodone HCl (Roxicodone -) 10 mg PO Q4H PRN PRN Reason: PAIN Last Admin: 11/05/16 09:19 Dose: 10 mg Pantoprazole Sodium (Protonix -) 40 mg PO DAILY [facility] Last Admin: 11/05/16 09:19 Dose: 40 mg Polyethylene Glycol (Miralax (For Daily Use) -) 17 gm PO DAILY [facility] Last Admin: 11/05/16 11:05 Dose: 17 gm Torsemide (Demadex -) 20 mg PO DAILY [facility] Last Admin: 11/05/16 09:19 Dose: 20 mg - Objective Vital Signs: Vital Signs Temperature 98.0 F 11/05/16 06:00 Pulse Rate 84 11/05/16 06:00 Respiratory Rate 20 11/05/16 06:00 Blood Pressure 116/50 11/05/16 06:00 O2 Sat by Pulse Oximetry (%) 93 L 11/03/16 21:00 Constitutional: Yes: No Distress Eyes: Yes: Conjunctiva Clear Cardiovascular: Yes: Regular Rate and Rhythm, S1, S2 Respiratory: Yes: CTA Bilaterally Gastrointestinal: Yes: Normal Bowel Sounds, Soft, Abdomen, Obese. No: Tenderness Extremities: Yes: Other (erythema R LE nearly all resolved) Labs: CBC, BMP 11/04/16 07:15 11/04/16 07:15 INR, PTT INR 1.15 (0.82-1.09) H 11/02/16 07:30 Assessment/Plan S/P distal L femur fracture Post op repair of fracture, L TKR revision Grp A strep bacteremia/ sepsis secondary to skin source Cellulitis R LE- improved UTI Fever/ leukocytosis- improved Continue ceftriaxone / clindamycin for tx grp A strep Day # 7 antibiotics Will need an additional 7d IV antibiotics ? PICC Check echocardiogram (r/o vegetations)
--- NOTE | 2016-11-05 13:16 | PN ---
Progress Note, Physician Chief Complaint: Ms Vázquez says she is not doing well. States that she is unable to stand secondary to weakness. Pain is present but controlled. - Current Medication List Current Medications: Active Medications Acetaminophen (Tylenol -) 650 mg PO Q4H PRN PRN Reason: FEVER OR PAIN Last Admin: 11/05/16 09:20 Dose: 650 mg Atorvastatin Calcium (Lipitor -) 20 mg PO HS [facility] Last Admin: 11/04/16 21:49 Dose: 20 mg Docusate Sodium (Colace -) 100 mg PO BID [facility] Last Admin: 11/05/16 09:19 Dose: 100 mg Enoxaparin Sodium (Lovenox -) 40 mg SQ DAILY [facility] Last Admin: 11/05/16 09:19 Dose: 40 mg Glipizide (Glucotrol -) 5 mg PO BIDAC [facility] Last Admin: 11/05/16 06:17 Dose: 5 mg Lactated Ringer's (Lactated Ringers Solution) 1,000 mls @ 125 mls/hr IV ASDIR [facility] Last Admin: 11/05/16 06:17 Dose: 125 mls/hr Ceftriaxone Sodium (Rocephin 2gm Ivpb (Pre-Docked)) 100 mls @ 200 mls/hr IVPB DAILY [facility] Last Admin: 11/05/16 09:23 Dose: 200 mls/hr Clindamycin Phosphate (Cleocin 900 Mg Premix Ivpb -) 50 mls @ 100 mls/hr IVPB Q8H-IV [facility] Last Admin: 11/05/16 11:05 Dose: 100 mls/hr Insulin Aspart (Novolog Vial Sliding Scale -) 1 vial SQ ACHS [facility] PRN Reason: Protocol Last Admin: 11/05/16 11:49 Dose: Not Given Levothyroxine Sodium (Synthroid -) 75 mcg PO DAILY@0700 [facility] Last Admin: 11/05/16 06:17 Dose: 75 mcg Metformin HCl (Glucophage -) 500 mg PO BIDAC [facility] Last Admin: 11/05/16 06:17 Dose: 500 mg Morphine Sulfate (Morphine Injection -) 2 mg IVPUSH Q4H PRN PRN Reason: PAIN Last Admin: 11/05/16 06:41 Dose: 2 mg Ondansetron HCl (Zofran Injection) 4 mg IVPB Q6H PRN PRN Reason: NAUSEA Oxycodone HCl (Roxicodone -) 10 mg PO Q4H PRN PRN Reason: PAIN Last Admin: 11/05/16 09:19 Dose: 10 mg Pantoprazole Sodium (Protonix -) 40 mg PO DAILY [facility] Last Admin: 11/05/16 09:19 Dose: 40 mg Polyethylene Glycol (Miralax (For Daily Use) -) 17 gm PO DAILY [facility] Last Admin: 11/05/16 11:05 Dose: 17 gm Torsemide (Demadex -) 20 mg PO DAILY [facility] Last Admin: 11/05/16 09:19 Dose: 20 mg - Objective Vital Signs: Vital Signs Temperature 98.0 F 11/05/16 06:00 Pulse Rate 84 11/05/16 06:00 Respiratory Rate 20 11/05/16 06:00 Blood Pressure 116/50 11/05/16 06:00 O2 Sat by Pulse Oximetry (%) 93 L 11/03/16 21:00 Constitutional: Yes: No Distress, Calm, Obese Cardiovascular: Yes: Regular Rate and Rhythm. No: Gallop, Murmur, Rub Respiratory: Yes: Regular, CTA Bilaterally. No: Rales, Rhonchi, Wheezes Gastrointestinal: Yes: Normal Bowel Sounds, Soft. No: Distention, Tenderness Extremities: Yes: WNL Edema: No Labs: CBC, BMP 11/04/16 07:15 11/04/16 07:15 INR, PTT INR 1.15 (0.82-1.09) H 11/02/16 07:30 Problem List - Problems (1) Fracture of femur, distal, closed Code(s): S72.409A - UNSP FRACTURE OF LOWER END OF UNSP FEMUR, INIT FOR CLOS FX Qualifiers: Encounter type: initial encounter Laterality: left (2) Cellulitis Code(s): L03.90 - CELLULITIS, UNSPECIFIED Qualifiers: Site of cellulitis: extremity Site of cellulitis of extremity: lower extremity Laterality: right Qualified Code(s): L03.115 - Cellulitis of right lower limb (3) UTI (urinary tract infection) Code(s): N39.0 - URINARY TRACT INFECTION, SITE NOT SPECIFIED Qualifiers: Urinary tract infection type: acute cystitis Hematuria presence: without hematuria Qualified Code(s): N30.00 - Acute cystitis without hematuria (4) Sepsis Code(s): A41.9 - SEPSIS, UNSPECIFIED ORGANISM (5) Diabetes Code(s): E11.9 - TYPE 2 DIABETES MELLITUS WITHOUT COMPLICATIONS Qualifiers: Diabetes mellitus type: type 2 Diabetes mellitus complication status: with skin complications Diabetes mellitus complication detail: with foot ulcer 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: with halfway use Qualified Code(s): E11.621 - Type 2 diabetes mellitus with foot ulcer; L97.509 - Non-pressure chronic ulcer of other part of unspecified foot with unspecified severity; Z79.4 - alf (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 of insulin (6) Anemia Code(s): D64.9 - ANEMIA, UNSPECIFIED Qualifiers: Anemia type: unspecified type Qualified Code(s): D64.9 - Anemia, unspecified (7) Morbid obesity Code(s): E66.01 - MORBID (SEVERE) OBESITY DUE TO EXCESS CALORIES Qualifiers: Obesity type: due to excess calories Qualified Code(s): E66.01 - Morbid (severe) obesity due to excess calories (8) HTN (hypertension) Code(s): I10 - ESSENTIAL (PRIMARY) HYPERTENSION (9) HLD (hyperlipidemia) Code(s): E78.5 - HYPERLIPIDEMIA, UNSPECIFIED Assessment/Plan (1) Fracture of femur, distal, closed Assessment/Plan: -secondary to mechanical fall -s/p surgery -continue PT, will need placement Code(s): S72.409A - UNSP FRACTURE OF LOWER END OF UNSP FEMUR, INIT FOR CLOS FX Qualifiers: Encounter type: initial encounter Laterality: left (2) Cellulitis Assessment/Plan: -cellulitis on foot -suspect source of sepsis -continue clindamycin and rocephin per ID recommendations Code(s): L03.90 - CELLULITIS, UNSPECIFIED Qualifiers: Site of cellulitis: extremity Site of cellulitis of extremity: lower extremity Laterality: right Qualified Code(s): L03.115 - Cellulitis of right lower limb (3) UTI (urinary tract infection) Assessment/Plan: -growing klebsiella and e. coli -continue rocephin Code(s): N39.0 - URINARY TRACT INFECTION, SITE NOT SPECIFIED Qualifiers: Urinary tract infection type: acute cystitis Hematuria presence: without hematuria Qualified Code(s): N30.00 - Acute cystitis without hematuria (4) Sepsis Assessment/Plan: -resolved -continue antibiotics as above -ID following Code(s): A41.9 - SEPSIS, UNSPECIFIED ORGANISM (5) Diabetes Assessment/Plan: -continue glipizide and metformin -diabetic diet -FSBS and SSI -good control, currently not requiring home lantus dose Code(s): E11.9 - TYPE 2 DIABETES MELLITUS WITHOUT COMPLICATIONS Qualifiers: Diabetes mellitus type: type 2 Diabetes mellitus complication status: with skin complications Diabetes mellitus complication detail: with foot ulcer Diabetes mellitus halfway insulin use: with halfway use Qualified Code(s): E11.621 - Type 2 diabetes mellitus with foot ulcer; L97.509 - Non-pressure chronic ulcer of other part of unspecified foot with unspecified severity; Z79.4 - alf (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 of insulin (6) Anemia Assessment/Plan: -s/p transfusion -monitor Code(s): D64.9 - ANEMIA, UNSPECIFIED Qualifiers: Anemia type: unspecified type Qualified Code(s): D64.9 - Anemia, unspecified (7) Morbid obesity Assessment/Plan: -outpatient counselling Code(s): E66.01 - MORBID (SEVERE) OBESITY DUE TO EXCESS CALORIES Qualifiers: Obesity type: due to excess calories Qualified Code(s): E66.01 - Morbid (severe) obesity due to excess calories (8) HTN (hypertension) Assessment/Plan: -monitor Code(s): I10 - ESSENTIAL (PRIMARY) HYPERTENSION (9) HLD (hyperlipidemia) Assessment/Plan: -continue lipitor Code(s): E78.5 - HYPERLIPIDEMIA, UNSPECIFIED
[2016-11-05] MEDS: ATORVASTATIN CA 20 MG TABLET (FP) PO SCH (21:53)
[2016-11-06] MEDS: CLINDAMYCIN 900 MG PREMIX IVPB 50 ML IVPB SCH ×3 (01:36→18:03)
[2016-11-06] MEDS: LACTATED RINGERS SOLUTION 1,000 ML IV SCH (03:44)
[2016-11-06] MEDS: INSULIN SLIDING SCALE (NOVOLOG) 1 VIAL SQ SCH ×4 (06:38→22:38)
[2016-11-06] MEDS: glipiZIDE 5 MG TABLET (FP) PO SCH ×2 (06:38→18:07)
[2016-11-06] MEDS: LEVOTHYROXINE NA 75 MCG TABLET (FP) PO SCH (06:38)
[2016-11-06] MEDS: metFORMIN HCL 500 MG TABLET (FP) PO SCH ×2 (06:38→18:07)
[2016-11-06 08:02] LABS: MCHC 32.5 g/dl (32.0-36.0); MEAN CELL VOLUME 83.3 fl (80-96); MEAN PLT VOLUME 8.1 fl (7.5-11.1); PLATELET COUNT 236 K/MM3 (134-434); RDW 19.2 % (11.6-15.6); WHITE BLOOD COUNT 10.2 K/mm3 (4.0-10.0)
[2016-11-06 08:36] LABS: CALCIUM 7.6 mg/dL (8.5-10.1); COCKROFT - GAULT 195.1855; CREATININE 0.6 mg/dL (0.55-1.02); MAGNESIUM 1.5 mg/dL (1.8-2.4); PHOSPHOROUS 2.6 mg/dL (2.5-4.9)
[2016-11-06] MEDS: TORSEMIDE 20 MG TABLET (FP) PO SCH (09:32)
[2016-11-06] MEDS: CEFTRIAXONE 100 ML IVPB SCH (09:32)
[2016-11-06] MEDS: DOCUSATE SODIUM 100 MG CAPSULE (FP) PO SCH ×2 (09:33→22:35)
[2016-11-06] MEDS: ENOXAPARIN NA (PORCINE) 40 MG/0.4 ML DISP.SYRIN SQ SCH (09:33)
[2016-11-06] MEDS: PANTOPRAZOLE 40 MG TABLET (FP) PO SCH (09:33)
[2016-11-06] MEDS: POLYETHYLENE GLYCOL 3350 119 GM BTL PO SCH (09:34)
--- NOTE | 2016-11-06 10:29 | CONSULT ---
Consult - text type - Consultation Consultation Note: Podiatry Consultation: 71 year old IDDM F well known to me from wound care, s/p L distal femur fracture ORIF with Dr. Felder. Podiatry consultation requested to evaluate chronic diabetic ulcer and weightbearing status. She denies F/V/N/C/SOB/CP. PMHx: DM, hypothyroid, HTN, HLP, COPD, CHF, sleep apnea Meds: noted in chart ALL: codeine, shellfish, tramadol PSHx: R heel debridement and lavage, L knee replacement MASON: R foot: plantar heel DM ulcer with strong granular base, hyperkeratotic borders , no deep probing, no purulence, no fluctuance, no ascending cellulitis, no signs of active infection. Minimal edema. No tenderness to palpation. Imp: 71 year old DM F with R heel diabetic ulcer, stable 1. Excisional debridement performed of R heel ulcer to subcutaneous tissue using #15 blade scalpel. 2. Local wound care with collagenase + DSD daily to R foot. 3. May transition weightbearing to toe-touch weightbearing on right foot. 4. F/u as outpatient once discharged at [facility] wound care center on Saturday , 11/13/16. 5. Thank you for the courtesy of this consultation. Pallavi Rhodes DPM
[2016-11-06] MEDS: ACETAMINOPHEN 325 MG TABLET (FP) PO PRN ×2 (10:34→23:51)
[2016-11-06] MEDS: oxyCODONE HCL 5 MG TABLET PO PRN ×2 (11:56→23:50)
--- NOTE | 2016-11-06 14:02 | PN ---
Progress Note, Physician History of Present Illness: Patient states she is unable to stand No c/o fever/ chills Tolerating antibiotics No diarrhea - Current Medication List Current Medications: Active Medications Acetaminophen (Tylenol -) 650 mg PO Q4H PRN PRN Reason: FEVER OR PAIN Last Admin: 11/06/16 10:34 Dose: 650 mg Atorvastatin Calcium (Lipitor -) 20 mg PO HS [facility] Last Admin: 11/05/16 21:53 Dose: 20 mg Collagenase (Santyl -) 1 applic TP DAILY [facility] Docusate Sodium (Colace -) 100 mg PO BID [facility] Last Admin: 11/06/16 09:33 Dose: 100 mg Enoxaparin Sodium (Lovenox -) 40 mg SQ DAILY [facility] Last Admin: 11/06/16 09:33 Dose: 40 mg Glipizide (Glucotrol -) 5 mg PO BIDAC [facility] Last Admin: 11/06/16 06:38 Dose: 5 mg Lactated Ringer's (Lactated Ringers Solution) 1,000 mls @ 125 mls/hr IV ASDIR [facility] Last Admin: 11/06/16 03:44 Dose: 125 mls/hr Ceftriaxone Sodium (Rocephin 2gm Ivpb (Pre-Docked)) 100 mls @ 200 mls/hr IVPB DAILY [facility] Last Admin: 11/06/16 09:32 Dose: 200 mls/hr Clindamycin Phosphate (Cleocin 900 Mg Premix Ivpb -) 50 mls @ 100 mls/hr IVPB Q8H-IV [facility] Last Admin: 11/06/16 09:33 Dose: 100 mls/hr Insulin Aspart (Novolog Vial Sliding Scale -) 1 vial SQ ACHS [facility] PRN Reason: Protocol Last Admin: 11/06/16 12:12 Dose: Not Given Levothyroxine Sodium (Synthroid -) 75 mcg PO DAILY@0700 [facility] Last Admin: 11/06/16 06:38 Dose: 75 mcg Magnesium Oxide (Mag-Ox -) 400 mg PO BID [facility] Metformin HCl (Glucophage -) 500 mg PO BIDAC [facility] Last Admin: 11/06/16 06:38 Dose: 500 mg Ondansetron HCl (Zofran Injection) 4 mg IVPB Q6H PRN PRN Reason: NAUSEA Oxycodone HCl (Roxicodone -) 10 mg PO Q4H PRN PRN Reason: PAIN Last Admin: 11/06/16 11:56 Dose: 10 mg Pantoprazole Sodium (Protonix -) 40 mg PO DAILY [facility] Last Admin: 11/06/16 09:33 Dose: 40 mg Polyethylene Glycol (Miralax (For Daily Use) -) 17 gm PO DAILY [facility] Last Admin: 11/06/16 09:34 Dose: Not Given Torsemide (Demadex -) 20 mg PO DAILY [facility] Last Admin: 11/06/16 09:32 Dose: 20 mg - Objective Vital Signs: Vital Signs Temperature 98.2 F 11/06/16 05:41 Pulse Rate 82 11/06/16 10:00 Respiratory Rate 22 11/06/16 10:00 Blood Pressure 126/76 11/06/16 10:00 O2 Sat by Pulse Oximetry (%) 94 L 11/05/16 21:00 Constitutional: Yes: No Distress Eyes: Yes: Conjunctiva Clear Cardiovascular: Yes: Regular Rate and Rhythm, S1, S2 Respiratory: Yes: CTA Bilaterally Gastrointestinal: Yes: Normal Bowel Sounds, Soft, Abdomen, Obese. No: Tenderness Extremities: Yes: Other (+ LE edema Residual erythema and warmth R LE) Labs: CBC, BMP 11/06/16 07:25 11/06/16 07:25 INR, PTT INR 1.15 (0.82-1.09) H 11/02/16 07:30 Assessment/Plan S/P distal L femur fracture Post op repair of fracture, L TKR revision Grp A strep bacteremia/ sepsis secondary to skin source Cellulitis R LE- improved UTI Fever/ leukocytosis- improved Continue ceftriaxone / clindamycin for tx grp A strep Day # 8 antibiotics Check echocardiogram (r/o vegetations)
[2016-11-06 15:18] LABS: HYPOCHROMIA 1+; MICROCYTOSIS 1+; PLATELET ESTIMATE ADEQUATE (NORMAL)
[2016-11-06 15:19] LABS: ANISOCYTOSIS 2+; FRAGMENTED CELL FEW; TARGET CELLS 1+
[2016-11-06] MEDS: COLLAGENASE CLOSTRIDIUM HIST. 30 GRAMS TUBE TP SCH (15:22)
[2016-11-06] MEDS: MAGNESIUM OXIDE 400 MG TABLET (FP) PO SCH ×2 (15:22→22:35)
--- NOTE | 2016-11-06 15:24 | PN ---
Progress Note, Physician Chief Complaint: Ms Vázquez says she is still too weak to stand. No cp, sob, n/v. - Current Medication List Current Medications: Active Medications Acetaminophen (Tylenol -) 650 mg PO Q4H PRN PRN Reason: FEVER OR PAIN Last Admin: 11/06/16 10:34 Dose: 650 mg Atorvastatin Calcium (Lipitor -) 20 mg PO HS [facility] Last Admin: 11/05/16 21:53 Dose: 20 mg Collagenase (Santyl -) 1 applic TP DAILY [facility] Last Admin: 11/06/16 15:22 Dose: 1 applic Docusate Sodium (Colace -) 100 mg PO BID [facility] Last Admin: 11/06/16 09:33 Dose: 100 mg Enoxaparin Sodium (Lovenox -) 40 mg SQ DAILY [facility] Last Admin: 11/06/16 09:33 Dose: 40 mg Glipizide (Glucotrol -) 5 mg PO BIDAC [facility] Last Admin: 11/06/16 06:38 Dose: 5 mg Ceftriaxone Sodium (Rocephin 2gm Ivpb (Pre-Docked)) 100 mls @ 200 mls/hr IVPB DAILY [facility] Last Admin: 11/06/16 09:32 Dose: 200 mls/hr Clindamycin Phosphate (Cleocin 900 Mg Premix Ivpb -) 50 mls @ 100 mls/hr IVPB Q8H-IV [facility] Last Admin: 11/06/16 09:33 Dose: 100 mls/hr Insulin Aspart (Novolog Vial Sliding Scale -) 1 vial SQ ACHS [facility] PRN Reason: Protocol Last Admin: 11/06/16 12:12 Dose: Not Given Levothyroxine Sodium (Synthroid -) 75 mcg PO DAILY@0700 [facility] Last Admin: 11/06/16 06:38 Dose: 75 mcg Magnesium Oxide (Mag-Ox -) 400 mg PO BID [facility] Last Admin: 11/06/16 15:22 Dose: 400 mg Metformin HCl (Glucophage -) 500 mg PO BIDAC [facility] Last Admin: 11/06/16 06:38 Dose: 500 mg Ondansetron HCl (Zofran Injection) 4 mg IVPB Q6H PRN PRN Reason: NAUSEA Oxycodone HCl (Roxicodone -) 10 mg PO Q4H PRN PRN Reason: PAIN Last Admin: 11/06/16 11:56 Dose: 10 mg Pantoprazole Sodium (Protonix -) 40 mg PO DAILY [facility] Last Admin: 11/06/16 09:33 Dose: 40 mg Polyethylene Glycol (Miralax (For Daily Use) -) 17 gm PO DAILY [facility] Last Admin: 11/06/16 09:34 Dose: Not Given Torsemide (Demadex -) 20 mg PO DAILY [facility] Last Admin: 11/06/16 09:32 Dose: 20 mg - Objective Vital Signs: Vital Signs Temperature 97.6 F 11/06/16 14:00 Pulse Rate 87 11/06/16 14:00 Respiratory Rate 20 11/06/16 14:00 Blood Pressure 129/62 11/06/16 14:00 O2 Sat by Pulse Oximetry (%) 94 L 11/05/16 21:00 Constitutional: Yes: No Distress, Calm, Obese Cardiovascular: Yes: Regular Rate and Rhythm. No: Gallop, Murmur, Rub Respiratory: Yes: Regular, CTA Bilaterally. No: Rales, Rhonchi, Wheezes Gastrointestinal: Yes: Normal Bowel Sounds, Soft. No: Distention, Tenderness Extremities: Yes: WNL Edema: Yes Edema: LLE: 1+, RLE: 1+ Labs: CBC, BMP 11/06/16 07:25 11/06/16 07:25 INR, PTT INR 1.15 (0.82-1.09) H 11/02/16 07:30 Problem List - Problems (1) Fracture of femur, distal, closed Code(s): S72.409A - UNSP FRACTURE OF LOWER END OF UNSP FEMUR, INIT FOR CLOS FX Qualifiers: Encounter type: initial encounter Laterality: left (2) Cellulitis Code(s): L03.90 - CELLULITIS, UNSPECIFIED Qualifiers: Site of cellulitis: extremity Site of cellulitis of extremity: lower extremity Laterality: right Qualified Code(s): L03.115 - Cellulitis of right lower limb (3) UTI (urinary tract infection) Code(s): N39.0 - URINARY TRACT INFECTION, SITE NOT SPECIFIED Qualifiers: Urinary tract infection type: acute cystitis Hematuria presence: without hematuria Qualified Code(s): N30.00 - Acute cystitis without hematuria (4) Sepsis Code(s): A41.9 - SEPSIS, UNSPECIFIED ORGANISM (5) Diabetes Code(s): E11.9 - TYPE 2 DIABETES MELLITUS WITHOUT COMPLICATIONS Qualifiers: Diabetes mellitus type: type 2 Diabetes mellitus complication status: with skin complications Diabetes mellitus complication detail: with foot ulcer Diabetes mellitus jail insulin use: with cnc manufacturing engineer use Qualified Code(s): E11.621 - Type 2 diabetes mellitus with foot ulcer; L97.509 - Non-pressure chronic ulcer of other part of unspecified foot with unspecified severity; Z79.4 - bell spinner sousaphones (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 of insulin (6) Anemia Code(s): D64.9 - ANEMIA, UNSPECIFIED Qualifiers: Anemia type: unspecified type Qualified Code(s): D64.9 - Anemia, unspecified (7) Morbid obesity Code(s): E66.01 - MORBID (SEVERE) OBESITY DUE TO EXCESS CALORIES Qualifiers: Obesity type: due to excess calories Qualified Code(s): E66.01 - Morbid (severe) obesity due to excess calories (8) HTN (hypertension) Code(s): I10 - ESSENTIAL (PRIMARY) HYPERTENSION (9) HLD (hyperlipidemia) Code(s): E78.5 - HYPERLIPIDEMIA, UNSPECIFIED Assessment/Plan (1) Fracture of femur, distal, closed Assessment/Plan: -secondary to mechanical fall -s/p surgery -continue PT, will need placement Code(s): S72.409A - UNSP FRACTURE OF LOWER END OF UNSP FEMUR, INIT FOR CLOS FX Qualifiers: Encounter type: initial encounter Laterality: left (2) Cellulitis Assessment/Plan: -cellulitis on foot -suspect source of sepsis -continue clindamycin and rocephin per ID recommendations, day 8 -awaiting echo result Code(s): L03.90 - CELLULITIS, UNSPECIFIED Qualifiers: Site of cellulitis: extremity Site of cellulitis of extremity: lower extremity Laterality: right Qualified Code(s): L03.115 - Cellulitis of right lower limb (3) UTI (urinary tract infection) Assessment/Plan: -growing klebsiella and e. coli -continue rocephin Code(s): N39.0 - URINARY TRACT INFECTION, SITE NOT SPECIFIED Qualifiers: Urinary tract infection type: acute cystitis Hematuria presence: without hematuria Qualified Code(s): N30.00 - Acute cystitis without hematuria (4) Sepsis Assessment/Plan: -resolved -continue antibiotics as above -ID following Code(s): A41.9 - SEPSIS, UNSPECIFIED ORGANISM (5) Diabetes Assessment/Plan: -continue glipizide and metformin -diabetic diet -FSBS and SSI -good control, currently not requiring home lantus dose Code(s): E11.9 - TYPE 2 DIABETES MELLITUS WITHOUT COMPLICATIONS Qualifiers: Diabetes mellitus type: type 2 Diabetes mellitus complication status: with skin complications Diabetes mellitus complication detail: with foot ulcer Diabetes mellitus cnc manufacturing engineer insulin use: with cnc manufacturing engineer use Qualified Code(s): E11.621 - Type 2 diabetes mellitus with foot ulcer; L97.509 - Non-pressure chronic ulcer of other part of unspecified foot with unspecified severity; Z79.4 - bell spinner sousaphones (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 of insulin (6) Anemia Assessment/Plan: -s/p transfusion -monitor Code(s): D64.9 - ANEMIA, UNSPECIFIED Qualifiers: Anemia type: unspecified type Qualified Code(s): D64.9 - Anemia, unspecified (7) Morbid obesity Assessment/Plan: -outpatient counselling Code(s): E66.01 - MORBID (SEVERE) OBESITY DUE TO EXCESS CALORIES Qualifiers: Obesity type: due to excess calories Qualified Code(s): E66.01 - Morbid (severe) obesity due to excess calories (8) HTN (hypertension) Assessment/Plan: -monitor Code(s): I10 - ESSENTIAL (PRIMARY) HYPERTENSION (9) HLD (hyperlipidemia) Assessment/Plan: -continue lipitor Code(s): E78.5 - HYPERLIPIDEMIA, UNSPECIFIED
--- NOTE | 2016-11-06 17:24 | PN ---
Progress Note (short form) - Note Progress Note: Ortho Pt seen and examined s/p left revision tkr Selected Entries 11/06/16 14:00 Temperature 97.6 F Pulse Rate 87 Respiratory 20 Rate Blood Pressure 129/62 Laboratory Tests 11/06/16 07:25 WBC 10.2 H Hgb 8.0 L Hct 24.6 L Plt Count 236 dressing c/d/i, calf soft. nt rom 0-80, nvi a/p PT, wbat ROM exercises monitor h/h dvt ppx pain control d/c planning
[2016-11-06] MEDS: ATORVASTATIN CA 20 MG TABLET (FP) PO SCH (22:35)
[2016-11-07] MEDS: CLINDAMYCIN 900 MG PREMIX IVPB 50 ML IVPB SCH ×3 (01:39→17:36)
[2016-11-07] MEDS: INSULIN SLIDING SCALE (NOVOLOG) 1 VIAL SQ SCH ×4 (06:30→21:26)
[2016-11-07] MEDS: metFORMIN HCL 500 MG TABLET (FP) PO SCH ×2 (06:33→17:35)
[2016-11-07] MEDS: glipiZIDE 5 MG TABLET (FP) PO SCH ×2 (06:34→17:35)
[2016-11-07] MEDS: ACETAMINOPHEN 325 MG TABLET (FP) PO PRN ×3 (06:34→21:26)
[2016-11-07] MEDS: oxyCODONE HCL 5 MG TABLET PO PRN ×3 (06:34→21:25)
[2016-11-07] MEDS: LEVOTHYROXINE NA 75 MCG TABLET (FP) PO SCH (06:34)
[2016-11-07 08:01] LABS: MCH 26.7 pg (25.7-33.7); MCHC 32.2 g/dl (32.0-36.0); MEAN CELL VOLUME 82.7 fl (80-96); MEAN PLT VOLUME 8.1 fl (7.5-11.1); PLATELET COUNT 249 K/MM3 (134-434); RDW 19.3 % (11.6-15.6); WHITE BLOOD COUNT 9.5 K/mm3 (4.0-10.0)
[2016-11-07 08:57] LABS: CALCIUM 7.7 mg/dL (8.5-10.1); COCKROFT - GAULT 195.1855; CREATININE 0.6 mg/dL (0.55-1.02); MAGNESIUM 1.5 mg/dL (1.8-2.4); PHOSPHOROUS 2.6 mg/dL (2.5-4.9)
[2016-11-07] MEDS: MAGNESIUM OXIDE 400 MG TABLET (FP) PO SCH ×2 (10:43→21:25)
[2016-11-07] MEDS: DOCUSATE SODIUM 100 MG CAPSULE (FP) PO SCH ×2 (10:43→21:25)
[2016-11-07] MEDS: TORSEMIDE 20 MG TABLET (FP) PO SCH (10:43)
[2016-11-07] MEDS: PANTOPRAZOLE 40 MG TABLET (FP) PO SCH (10:43)
[2016-11-07] MEDS: ENOXAPARIN NA (PORCINE) 40 MG/0.4 ML DISP.SYRIN SQ SCH (10:43)
[2016-11-07] MEDS: POLYETHYLENE GLYCOL 3350 119 GM BTL PO SCH (10:44)
[2016-11-07] MEDS: CEFTRIAXONE 100 ML IVPB SCH (10:46)
[2016-11-07] MEDS: COLLAGENASE CLOSTRIDIUM HIST. 30 GRAMS TUBE TP SCH (10:46)
[2016-11-07] MEDS ORDERED: POTASSIUM CHLORIDE TABS 20 MEQ TABLET.ER (FP) PO ONE (10:46)
[2016-11-07] MEDS ORDERED: MAGNESIUM SULF 50% (8.12 MEQ/2 ML-1 GM VIAL) IVPB ONE (10:46)
--- NOTE | 2016-11-07 11:12 | PN ---
Progress Note (short form) - Note Progress Note: s: no cp sob palps dizzy; +pain s/p surgery but less o: Vital Signs Period Temp Pulse Resp BP Sys/Donohue Pulse Ox Last 24 Hr 97.6 F-98.3 F 78-87 16-20 102-129/51-68 94-95 nad no jvd rrr s1s2 no mrg cta bl nl eff aaox3 trace le edema bl, +chronic stasis changes abd nt nd pos bs no jaundice diaphoresis Current Medications Generic Name Dose Route Start Last Admin Trade Name Freq PRN Reason Stop Dose Admin Acetaminophen 650 mg 11/02/16 17:35 11/07/16 06:34 Tylenol - PO 650 mg Q4H PRN Administration FEVER OR PAIN Atorvastatin Calcium 20 mg 11/02/16 22:00 11/06/16 22:35 Lipitor - PO 20 mg HS [facility] Administration Collagenase 1 applic 11/06/16 10:45 11/07/16 10:46 Santyl - TP 1 applic DAILY [facility] Administration Docusate Sodium 100 mg 11/02/16 22:00 11/07/16 10:43 Colace - PO 100 mg BID [facility] Administration Enoxaparin Sodium 40 mg 11/03/16 10:00 11/07/16 10:43 Lovenox - SQ 40 mg DAILY [facility] Administration Glipizide 5 mg 11/03/16 07:00 11/07/16 06:34 Glucotrol - PO 5 mg BIDAC [facility] Administration Ceftriaxone Sodium 100 mls @ 200 mls/hr 11/03/16 10:00 11/07/16 10:46 Rocephin 2gm Ivpb (Pre-Docked) IVPB 200 mls/hr DAILY [facility] Administration Clindamycin Phosphate 50 mls @ 100 mls/hr 11/02/16 18:00 11/07/16 10:43 Cleocin 900 Mg Premix Ivpb - IVPB 100 mls/hr Q8H-IV [facility] Administration Insulin Aspart 1 vial 11/02/16 22:00 11/07/16 06:30 Novolog Vial Sliding Scale - SQ Not Given ACHS [facility] Protocol Levothyroxine Sodium 75 mcg 11/03/16 07:00 11/07/16 06:34 Synthroid - PO 75 mcg DAILY@0700 [facility] Administration Magnesium Oxide 400 mg 11/06/16 13:30 11/07/16 10:43 Mag-Ox - PO 400 mg BID [facility] Administration Magnesium Sulfate 2 gm 11/07/16 10:46 Magnesium Sulfate IVPB 11/07/16 10:47 ONCE ONE Metformin HCl 500 mg 11/03/16 07:00 11/07/16 06:33 Glucophage - PO 500 mg BIDAC [facility] Administration Ondansetron HCl 4 mg 11/02/16 17:35 Zofran Injection IVPB Q6H PRN NAUSEA Oxycodone HCl 10 mg 11/06/16 11:13 11/07/16 06:34 Roxicodone - PO 10 mg Q4H PRN Administration PAIN Pantoprazole Sodium 40 mg 11/03/16 10:00 11/07/16 10:43 Protonix - PO 40 mg DAILY [facility] Administration Polyethylene Glycol 17 gm 11/03/16 10:00 11/07/16 10:44 Miralax (For Daily Use) - PO 17 gm DAILY [facility] Administration Potassium Chloride 40 meq 11/07/16 10:46 K-Dur - PO 11/07/16 10:47 ONCE ONE Torsemide 20 mg 11/03/16 10:00 11/07/16 10:43 Demadex - PO 20 mg DAILY [facility] Administration CBC, BMP 11/07/16 06:30 11/07/16 06:30 stress MPI 06/08: no ischemic EKG changes. nl perfusion. EF 45%, global. Echo 02/2016: suboptimal. grossly nl lv size. Mild-mod LV dysfunction. RV not well seen. Mild ARLYN. Mod TR. RVSP 40-50. Small effusion < 1 cm. cta chest: no pe, no chf echo 10/2016: tds; low nl lvef, nl rv, mild lae, mod tr, rvsp 40-50 Assessment/Plan systolic dysfunction, chronic mixed syst/diast chf - episode chf 06/08, EF mildly reduced then, diuresed in hospital - low bp's noted then so carvedilol held. Now pt reports she was not taking ARB at home either due to cough. Monitor bp, may consider bb for chf regimen if bp allows. - on torsemide 20 at home, cont same - should have sleep study as outpatient (if not previously done) to r/o LUCIUS as cause of nonisch CMP HTN - bp controlled/low off meds. - pt reports she was not taking coreg or arb at home anemia: - baseline 8s, stable cellulitis, +bld cxs: -abx per ID HLD - con't statin
--- NOTE | 2016-11-07 11:18 | PN ---
Progress Note, Physician Chief Complaint: Ms Vázquez says she is feeling better but still very weak. No cp, sob, n/v. Is currently refusing PICC line, concerned that last time she had one she had an allergic reaction and did not tolerate treatment. - Current Medication List Current Medications: Active Medications Acetaminophen (Tylenol -) 650 mg PO Q4H PRN PRN Reason: FEVER OR PAIN Last Admin: 11/07/16 06:34 Dose: 650 mg Atorvastatin Calcium (Lipitor -) 20 mg PO HS [facility] Last Admin: 11/06/16 22:35 Dose: 20 mg Collagenase (Santyl -) 1 applic TP DAILY [facility] Last Admin: 11/07/16 10:46 Dose: 1 applic Docusate Sodium (Colace -) 100 mg PO BID [facility] Last Admin: 11/07/16 10:43 Dose: 100 mg Enoxaparin Sodium (Lovenox -) 40 mg SQ DAILY [facility] Last Admin: 11/07/16 10:43 Dose: 40 mg Glipizide (Glucotrol -) 5 mg PO BIDAC [facility] Last Admin: 11/07/16 06:34 Dose: 5 mg Ceftriaxone Sodium (Rocephin 2gm Ivpb (Pre-Docked)) 100 mls @ 200 mls/hr IVPB DAILY [facility] Last Admin: 11/07/16 10:46 Dose: 200 mls/hr Clindamycin Phosphate (Cleocin 900 Mg Premix Ivpb -) 50 mls @ 100 mls/hr IVPB Q8H-IV [facility] Last Admin: 11/07/16 10:43 Dose: 100 mls/hr Insulin Aspart (Novolog Vial Sliding Scale -) 1 vial SQ ACHS [facility] PRN Reason: Protocol Last Admin: 11/07/16 06:30 Dose: Not Given Levothyroxine Sodium (Synthroid -) 75 mcg PO DAILY@0700 [facility] Last Admin: 11/07/16 06:34 Dose: 75 mcg Magnesium Oxide (Mag-Ox -) 400 mg PO BID [facility] Last Admin: 11/07/16 10:43 Dose: 400 mg Magnesium Sulfate (Magnesium Sulfate) 2 gm IVPB ONCE ONE Stop: 11/07/16 10:47 Metformin HCl (Glucophage -) 500 mg PO BIDAC [facility] Last Admin: 11/07/16 06:33 Dose: 500 mg Ondansetron HCl (Zofran Injection) 4 mg IVPB Q6H PRN PRN Reason: NAUSEA Oxycodone HCl (Roxicodone -) 10 mg PO Q4H PRN PRN Reason: PAIN Last Admin: 11/07/16 06:34 Dose: 10 mg Pantoprazole Sodium (Protonix -) 40 mg PO DAILY [facility] Last Admin: 11/07/16 10:43 Dose: 40 mg Polyethylene Glycol (Miralax (For Daily Use) -) 17 gm PO DAILY [facility] Last Admin: 11/07/16 10:44 Dose: 17 gm Potassium Chloride (K-Dur -) 40 meq PO ONCE ONE Stop: 11/07/16 10:47 Torsemide (Demadex -) 20 mg PO DAILY [facility] Last Admin: 11/07/16 10:43 Dose: 20 mg - Objective Vital Signs: Vital Signs Temperature 98.0 F 11/07/16 10:52 Pulse Rate 78 11/07/16 10:52 Respiratory Rate 18 11/07/16 10:52 Blood Pressure 102/51 11/07/16 10:52 O2 Sat by Pulse Oximetry (%) 95 11/07/16 09:00 Constitutional: Yes: No Distress, Calm, Obese Cardiovascular: Yes: Regular Rate and Rhythm. No: Gallop, Murmur, Rub Respiratory: Yes: Regular, CTA Bilaterally. No: Rales, Rhonchi, Wheezes Gastrointestinal: Yes: Normal Bowel Sounds, Soft. No: Distention, Tenderness Extremities: Yes: WNL Edema: Yes Edema: LLE: 1+, RLE: 1+ Labs: CBC, BMP 11/07/16 06:30 11/07/16 06:30 INR, PTT INR 1.15 (0.82-1.09) H 11/02/16 07:30 Problem List - Problems (1) Fracture of femur, distal, closed Code(s): S72.409A - UNSP FRACTURE OF LOWER END OF UNSP FEMUR, INIT FOR CLOS FX Qualifiers: Encounter type: initial encounter Laterality: left (2) Cellulitis Code(s): L03.90 - CELLULITIS, UNSPECIFIED Qualifiers: Site of cellulitis: extremity Site of cellulitis of extremity: lower extremity Laterality: right Qualified Code(s): L03.115 - Cellulitis of right lower limb (3) UTI (urinary tract infection) Code(s): N39.0 - URINARY TRACT INFECTION, SITE NOT SPECIFIED Qualifiers: Urinary tract infection type: acute cystitis Hematuria presence: without hematuria Qualified Code(s): N30.00 - Acute cystitis without hematuria (4) Sepsis Code(s): A41.9 - SEPSIS, UNSPECIFIED ORGANISM (5) Diabetes Code(s): E11.9 - TYPE 2 DIABETES MELLITUS WITHOUT COMPLICATIONS Qualifiers: Diabetes mellitus type: type 2 Diabetes mellitus complication status: with skin complications Diabetes mellitus complication detail: with foot ulcer Diabetes mellitus prison insulin use: with manager long term care use Qualified Code(s): E11.621 - Type 2 diabetes mellitus with foot ulcer; L97.509 - Non-pressure chronic ulcer of other part of unspecified foot with unspecified severity; Z79.4 - [facility] (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 of insulin (6) Anemia Code(s): D64.9 - ANEMIA, UNSPECIFIED Qualifiers: Anemia type: unspecified type Qualified Code(s): D64.9 - Anemia, unspecified (7) Morbid obesity Code(s): E66.01 - MORBID (SEVERE) OBESITY DUE TO EXCESS CALORIES Qualifiers: Obesity type: due to excess calories Qualified Code(s): E66.01 - Morbid (severe) obesity due to excess calories (8) HTN (hypertension) Code(s): I10 - ESSENTIAL (PRIMARY) HYPERTENSION (9) HLD (hyperlipidemia) Code(s): E78.5 - HYPERLIPIDEMIA, UNSPECIFIED Assessment/Plan (1) Fracture of femur, distal, closed Assessment/Plan: -secondary to mechanical fall -s/p surgery -continue PT, will need placement Code(s): S72.409A - UNSP FRACTURE OF LOWER END OF UNSP FEMUR, INIT FOR CLOS FX Qualifiers: Encounter type: initial encounter Laterality: left (2) Cellulitis Assessment/Plan: -cellulitis on foot -suspect source of sepsis -continue clindamycin and rocephin per ID recommendations, day 9 -echo resulted -patient does not agree to PICC line Code(s): L03.90 - CELLULITIS, UNSPECIFIED Qualifiers: Site of cellulitis: extremity Site of cellulitis of extremity: lower extremity Laterality: right Qualified Code(s): L03.115 - Cellulitis of right lower limb (3) UTI (urinary tract infection) Assessment/Plan: -growing klebsiella and e. coli -continue rocephin Code(s): N39.0 - URINARY TRACT INFECTION, SITE NOT SPECIFIED Qualifiers: Urinary tract infection type: acute cystitis Hematuria presence: without hematuria Qualified Code(s): N30.00 - Acute cystitis without hematuria (4) Sepsis Assessment/Plan: -resolved -continue antibiotics as above -ID following Code(s): A41.9 - SEPSIS, UNSPECIFIED ORGANISM (5) Diabetes Assessment/Plan: -continue glipizide and metformin -diabetic diet -FSBS and SSI -good control, currently not requiring home lantus dose Code(s): E11.9 - TYPE 2 DIABETES MELLITUS WITHOUT COMPLICATIONS Qualifiers: Diabetes mellitus type: type 2 Diabetes mellitus complication status: with skin complications Diabetes mellitus complication detail: with foot ulcer Diabetes mellitus prison insulin use: with manager long term care use Qualified Code(s): E11.621 - Type 2 diabetes mellitus with foot ulcer; L97.509 - Non-pressure chronic ulcer of other part of unspecified foot with unspecified severity; Z79.4 - [facility] (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 of insulin (6) Anemia Assessment/Plan: -s/p transfusion -monitor Code(s): D64.9 - ANEMIA, UNSPECIFIED Qualifiers: Anemia type: unspecified type Qualified Code(s): D64.9 - Anemia, unspecified (7) Morbid obesity Assessment/Plan: -outpatient counselling Code(s): E66.01 - MORBID (SEVERE) OBESITY DUE TO EXCESS CALORIES Qualifiers: Obesity type: due to excess calories Qualified Code(s): E66.01 - Morbid (severe) obesity due to excess calories (8) HTN (hypertension) Assessment/Plan: -monitor Code(s): I10 - ESSENTIAL (PRIMARY) HYPERTENSION (9) HLD (hyperlipidemia) Assessment/Plan: -continue lipitor Code(s): E78.5 - HYPERLIPIDEMIA, UNSPECIFIED
--- NOTE | 2016-11-07 14:50 | PATH ---
Surgical Pathology Report Patient Name: LUIS GARCIA Med. Rec. #: [id number] /Age/Gender: 1945 (Age: 71) / F Account: [id number] Location: [address] [place] [address]/[facility] Taken: 11/02/2016 Received: 11/05/2016 Reported: 11/07/2016 Physicians: Alirio Felder M.D. Specimen(s) Received BONE & HARDWARE LEFT KNEE Clinical History Left distal femoral fracture Final Diagnosis BONE AND HARDWARE, LEFT KNEE, DISTAL FEMORAL REPLACEMENT: BONE WITH FOCAL NECROSIS AND HEMORRHAGE CONSISTENT WITH FRACTURE SITE. Electronically Signed Bird Samuels M.D. Gross Description Received in formalin labeled "bone/hardware left knee" is a 12.5 x 10.5 x 4.5 cm aggregate of 3 ledbetter metallic portions of hardware with attached focally hemorrhagic bone and separate bone fragments, consistent with portions of femoral condyles and tibial plateau. Seed Cutter sections are submitted in one cassette, following decalcification. /11/06/2016 [facility]11/06/2016
[2016-11-07 16:46] LABS: ANISOCYTOSIS 1+; HYPOCHROMIA 1+; PLATELET ESTIMATE ADEQUATE (NORMAL); POLYCHROMASIA FEW
--- NOTE | 2016-11-07 18:42 | PN ---
Progress Note, Physician History of Present Illness: OOB in chair No c/o leg pain No c/o fever/ chills Afebrile WBC WNL - Current Medication List Current Medications: Active Medications Acetaminophen (Tylenol -) 650 mg PO Q4H PRN PRN Reason: FEVER OR PAIN Last Admin: 11/07/16 15:20 Dose: 650 mg Atorvastatin Calcium (Lipitor -) 20 mg PO HS [facility] Last Admin: 11/06/16 22:35 Dose: 20 mg Collagenase (Santyl -) 1 applic TP DAILY [facility] Last Admin: 11/07/16 10:46 Dose: 1 applic Docusate Sodium (Colace -) 100 mg PO BID [facility] Last Admin: 11/07/16 10:43 Dose: 100 mg Enoxaparin Sodium (Lovenox -) 40 mg SQ DAILY [facility] Last Admin: 11/07/16 10:43 Dose: 40 mg Glipizide (Glucotrol -) 5 mg PO BIDAC [facility] Last Admin: 11/07/16 17:35 Dose: 5 mg Ceftriaxone Sodium (Rocephin 2gm Ivpb (Pre-Docked)) 100 mls @ 200 mls/hr IVPB DAILY [facility] Last Admin: 11/07/16 10:46 Dose: 200 mls/hr Clindamycin Phosphate (Cleocin 900 Mg Premix Ivpb -) 50 mls @ 100 mls/hr IVPB Q8H-IV [facility] Last Admin: 11/07/16 17:36 Dose: 100 mls/hr Insulin Aspart (Novolog Vial Sliding Scale -) 1 vial SQ ACHS [facility] PRN Reason: Protocol Last Admin: 11/07/16 17:30 Dose: Not Given Levothyroxine Sodium (Synthroid -) 75 mcg PO DAILY@0700 [facility] Last Admin: 11/07/16 06:34 Dose: 75 mcg Magnesium Oxide (Mag-Ox -) 400 mg PO BID [facility] Last Admin: 11/07/16 10:43 Dose: 400 mg Metformin HCl (Glucophage -) 500 mg PO BIDAC [facility] Last Admin: 11/07/16 17:35 Dose: 500 mg Ondansetron HCl (Zofran Injection) 4 mg IVPB Q6H PRN PRN Reason: NAUSEA Oxycodone HCl (Roxicodone -) 10 mg PO Q4H PRN PRN Reason: PAIN Last Admin: 11/07/16 15:19 Dose: 10 mg Pantoprazole Sodium (Protonix -) 40 mg PO DAILY [facility] Last Admin: 11/07/16 10:43 Dose: 40 mg Polyethylene Glycol (Miralax (For Daily Use) -) 17 gm PO DAILY [facility] Last Admin: 11/07/16 10:44 Dose: 17 gm Torsemide (Demadex -) 20 mg PO DAILY [facility] Last Admin: 11/07/16 10:43 Dose: 20 mg - Objective Vital Signs: Vital Signs Temperature 97.7 F 11/07/16 14:00 Pulse Rate 78 11/07/16 14:00 Respiratory Rate 20 11/07/16 14:00 Blood Pressure 102/51 11/07/16 10:52 O2 Sat by Pulse Oximetry (%) 95 11/07/16 09:00 Constitutional: Yes: No Distress Eyes: Yes: Conjunctiva Clear Cardiovascular: Yes: Regular Rate and Rhythm, S1, S2 Respiratory: Yes: CTA Bilaterally Gastrointestinal: Yes: Normal Bowel Sounds, Soft, Abdomen, Obese Edema: Yes Integumentary: Yes: Other (minimal residual erythema R LE) Labs: CBC, BMP 11/07/16 06:30 11/07/16 06:30 INR, PTT INR 1.15 (0.82-1.09) H 11/02/16 07:30 Assessment/Plan S/P distal L femur fracture Post op repair of fracture, L TKR revision Grp A strep bacteremia/ sepsis secondary to skin source Cellulitis R LE- improved UTI Fever/ leukocytosis- improved Continue ceftriaxone / clindamycin for tx grp A strep Day # 9 antibiotics echocardiogram no vegetations Will complete 10d course IV antibiotics
[2016-11-07] MEDS: ATORVASTATIN CA 20 MG TABLET (FP) PO SCH (21:25)
[2016-11-08] MEDS: oxyCODONE HCL 5 MG TABLET PO PRN ×2 (01:43→13:45)
[2016-11-08] MEDS: CLINDAMYCIN 900 MG PREMIX IVPB 50 ML IVPB SCH (01:43)
[2016-11-08] MEDS: ACETAMINOPHEN 325 MG TABLET (FP) PO PRN ×2 (01:44→13:45)
[2016-11-08] MEDS: INSULIN SLIDING SCALE (NOVOLOG) 1 VIAL SQ SCH ×2 (06:03→15:33)
[2016-11-08] MEDS: metFORMIN HCL 500 MG TABLET (FP) PO SCH (06:07)
[2016-11-08] MEDS: LEVOTHYROXINE NA 75 MCG TABLET (FP) PO SCH (06:07)
[2016-11-08] MEDS: glipiZIDE 5 MG TABLET (FP) PO SCH (06:07)
[2016-11-08 08:08] LABS: CALCIUM 7.4 mg/dL (8.5-10.1); COCKROFT - GAULT 166.1325; CREATININE 0.7 mg/dL (0.55-1.02); MAGNESIUM 1.8 mg/dL (1.8-2.4)
[2016-11-08] MEDS: POLYETHYLENE GLYCOL 3350 119 GM BTL PO SCH (10:42)
[2016-11-08] MEDS: PANTOPRAZOLE 40 MG TABLET (FP) PO SCH (10:43)
[2016-11-08] MEDS: MAGNESIUM OXIDE 400 MG TABLET (FP) PO SCH (10:43)
[2016-11-08] MEDS: DOCUSATE SODIUM 100 MG CAPSULE (FP) PO SCH (10:43)
[2016-11-08] MEDS: ENOXAPARIN NA (PORCINE) 40 MG/0.4 ML DISP.SYRIN SQ SCH (10:43)
--- NOTE | 2016-11-08 10:43 | PN ---
Progress Note, Physician History of Present Illness: No c/o leg pain No fever/ chills Tolerating antibiotic - Current Medication List Current Medications: Active Medications Acetaminophen (Tylenol -) 650 mg PO Q4H PRN PRN Reason: FEVER OR PAIN Last Admin: 11/08/16 01:44 Dose: 650 mg Atorvastatin Calcium (Lipitor -) 20 mg PO HS [facility] Last Admin: 11/07/16 21:25 Dose: 20 mg Collagenase (Santyl -) 1 applic TP DAILY [facility] Last Admin: 11/07/16 10:46 Dose: 1 applic Docusate Sodium (Colace -) 100 mg PO BID [facility] Last Admin: 11/07/16 21:25 Dose: 100 mg Enoxaparin Sodium (Lovenox -) 40 mg SQ DAILY [facility] Last Admin: 11/07/16 10:43 Dose: 40 mg Glipizide (Glucotrol -) 5 mg PO BIDAC [facility] Last Admin: 11/08/16 06:07 Dose: 5 mg Ceftriaxone Sodium (Rocephin 2gm Ivpb (Pre-Docked)) 100 mls @ 200 mls/hr IVPB DAILY [facility] Last Admin: 11/07/16 10:46 Dose: 200 mls/hr Clindamycin Phosphate (Cleocin 900 Mg Premix Ivpb -) 50 mls @ 100 mls/hr IVPB Q8H-IV [facility] Last Admin: 11/08/16 01:43 Dose: 100 mls/hr Insulin Aspart (Novolog Vial Sliding Scale -) 1 vial SQ ACHS [facility] PRN Reason: Protocol Last Admin: 11/08/16 06:03 Dose: Not Given Levothyroxine Sodium (Synthroid -) 75 mcg PO DAILY@0700 [facility] Last Admin: 11/08/16 06:07 Dose: 75 mcg Magnesium Oxide (Mag-Ox -) 400 mg PO BID [facility] Last Admin: 11/07/16 21:25 Dose: 400 mg Metformin HCl (Glucophage -) 500 mg PO BIDAC [facility] Last Admin: 11/08/16 06:07 Dose: 500 mg Ondansetron HCl (Zofran Injection) 4 mg IVPB Q6H PRN PRN Reason: NAUSEA Oxycodone HCl (Roxicodone -) 10 mg PO Q4H PRN PRN Reason: PAIN Last Admin: 11/08/16 01:43 Dose: 10 mg Pantoprazole Sodium (Protonix -) 40 mg PO DAILY [facility] Last Admin: 11/07/16 10:43 Dose: 40 mg Polyethylene Glycol (Miralax (For Daily Use) -) 17 gm PO DAILY [facility] Last Admin: 11/07/16 10:44 Dose: 17 gm Torsemide (Demadex -) 20 mg PO DAILY [facility] Last Admin: 11/07/16 10:43 Dose: 20 mg - Objective Vital Signs: Vital Signs Temperature 98.0 F 11/08/16 05:39 Pulse Rate 81 11/08/16 05:39 Respiratory Rate 18 11/08/16 05:39 Blood Pressure 96/52 11/08/16 05:39 O2 Sat by Pulse Oximetry (%) 96 11/07/16 21:00 Constitutional: Yes: No Distress, Obese Eyes: Yes: Conjunctiva Clear Cardiovascular: Yes: Regular Rate and Rhythm, S1, S2 Respiratory: Yes: Diminished Gastrointestinal: Yes: Normal Bowel Sounds, Soft. No: Tenderness Extremities: Yes: Other (resolving erythema R LE) Edema: Yes Labs: CBC, BMP 11/08/16 06:10 INR, PTT INR 1.15 (0.82-1.09) H 11/02/16 07:30 Assessment/Plan S/P distal L femur fracture Post op repair of fracture, L TKR revision Grp A strep bacteremia/ sepsis secondary to skin source Cellulitis R LE- improved UTI Fever/ leukocytosis- improved Day # 10 IV antibiotics D/C ceftriaxone/ clindamycin Keflex 500mg po q6h x 7days
[2016-11-08] MEDS: TORSEMIDE 20 MG TABLET (FP) PO SCH (10:44)
[2016-11-08] MEDS: COLLAGENASE CLOSTRIDIUM HIST. 30 GRAMS TUBE TP SCH (10:44)
[2016-11-08 11:34] LABS: MEAN CELL VOLUME 83.8 fl (80-96); MEAN PLT VOLUME 8.5 fl (7.5-11.1); PLATELET COUNT 265 K/MM3 (134-434); RDW 19.1 % (11.6-15.6); WHITE BLOOD COUNT 11.6 K/mm3 (4.0-10.0)
[2016-11-08] MEDS ORDERED: CEPHALEXIN MONOHYDRATE 500 MG CAPSULE (UD) PO SCH (12:00)
--- NOTE | 2016-11-08 13:15 | DS ---
Physical Examination Vital Signs: Vital Signs Temperature 98.0 F 11/08/16 05:39 Pulse Rate 81 11/08/16 05:39 Respiratory Rate 18 11/08/16 05:39 Blood Pressure 96/52 11/08/16 05:39 O2 Sat by Pulse Oximetry (%) 96 11/07/16 21:00 Constitutional: Yes: No Distress, Calm, Obese Cardiovascular: Yes: Regular Rate and Rhythm. No: Gallop, Murmur, Rub Respiratory: Yes: Regular, CTA Bilaterally. No: Rales, Rhonchi, Wheezes Gastrointestinal: Yes: Normal Bowel Sounds, Soft. No: Distention, Tenderness Edema: No Labs: CBC, BMP 11/08/16 06:10 11/08/16 06:10 Discharge Summary Reason For Visit: CELLULITIS RT LOWER EXTREMITY,FX OF DISTAL FEMUR Current Active Problems Cellulitis (Acute) Cellulitis of right leg (Acute) Diabetes (Acute) Fever (Acute) Fracture of femur, distal, closed (Acute) HLD (hyperlipidemia) (Acute) HTN (hypertension) (Acute) Sepsis (Acute) UTI (urinary tract infection) (Acute) Hospital Course: (1) Fracture of femur, distal, closed Code(s): S72.409A - UNSP FRACTURE OF LOWER END OF UNSP FEMUR, INIT FOR CLOS FX Qualifiers: Encounter type: initial encounter Laterality: left (2) Cellulitis Code(s): L03.90 - CELLULITIS, UNSPECIFIED Qualifiers: Site of cellulitis: extremity Site of cellulitis of extremity: lower extremity Laterality: right Qualified Code(s): L03.115 - Cellulitis of right lower limb (3) UTI (urinary tract infection) Code(s): N39.0 - URINARY TRACT INFECTION, SITE NOT SPECIFIED Qualifiers: Urinary tract infection type: acute cystitis Hematuria presence: without hematuria Qualified Code(s): N30.00 - Acute cystitis without hematuria (4) Sepsis Code(s): A41.9 - SEPSIS, UNSPECIFIED ORGANISM (5) Diabetes Code(s): E11.9 - TYPE 2 DIABETES MELLITUS WITHOUT COMPLICATIONS Qualifiers: Diabetes mellitus type: type 2 Diabetes mellitus complication status: with skin complications Diabetes mellitus complication detail: with foot ulcer Diabetes mellitus prison insulin use: with terminal worker use Qualified Code(s): E11.621 - Type 2 diabetes mellitus with foot ulcer; L97.509 - Non-pressure chronic ulcer of other part of unspecified foot with unspecified severity; Z79.4 - alf (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 of insulin (6) Anemia Code(s): D64.9 - ANEMIA, UNSPECIFIED Qualifiers: Anemia type: unspecified type Qualified Code(s): D64.9 - Anemia, unspecified (7) Morbid obesity Code(s): E66.01 - MORBID (SEVERE) OBESITY DUE TO EXCESS CALORIES Qualifiers: Obesity type: due to excess calories Qualified Code(s): E66.01 - Morbid (severe) obesity due to excess calories (8) HTN (hypertension) Code(s): I10 - ESSENTIAL (PRIMARY) HYPERTENSION (9) HLD (hyperlipidemia) Code(s): E78.5 - HYPERLIPIDEMIA, UNSPECIFIED Ms Vázquez is a pleasant 71 year old female who comes in after mechanical fall and found to have UTI and cellulitis with sepsis. She was admitted to the hospital and started on IV antibiotics. Cultures were sent and were positive, cultures sensitive to antibiotics. She was seen by ortho underwent repair. She tolerated the procedure well. Her sepsis resolved. She is currently stable for transfer to SNF with oral antibiotics. 33 minutes spent in preparation of this discharge Condition: Stable - Instructions Diet, Activity, Other Instructions: diabetic diet. Up with assistance, further activity per PT at SNF Referrals: Alirio Garcia MD [Primary Care Provider] - Janusz Alvarado MD [Staff Physician] - Disposition: LONG TERM FACILITY - Home Medications Comprehensive Discharge Medication List: Ambulatory Orders Aspirin [ASA -] 81 mg PO DAILY 06/10/14 Garlic 1 each PO DAILY 06/10/14 Simvastatin [Zocor -] 40 mg PO HS 06/10/14 Potassium 20 meq PO DAILY 02/28/16 Torsemide [Demadex -] 20 mg PO DAILY 10/16/16 Glipizide/Metformin HCl [Glipizide-Metformin 5-500 mg] 1 each PO BID 10/30/16 Levothyroxine [Synthroid -] 75 mcg PO DAILY 10/30/16 Losartan Potassium 50 mg PO DAILY 10/30/16 [place]-3 Fatty Acids [Fish Oil] 300 mg PO DAILY 10/30/16 Cephalexin Monohydrate [Keflex -] 500 mg PO Q6HPO 7 Days 11/08/16 Docusate Sodium [Colace -] 100 mg PO BID cap 11/08/16 Enoxaparin [Lovenox -] 40 mg SQ DAILY syr 11/08/16 Insulin Sliding Scale [Novolog Vial Sliding Scale -] 1 vial SQ ACHS units 11/08 Magnesium Oxide [Mag-Ox -] 400 mg PO BID tablet 11/08/16 Oxycodone HCl [Roxicodone -] 10 mg PO Q4H PRN #0 tablet MDD 60mg 11/08/16 Polyethylene Glycol 3350 [Miralax 119 gm Btl -] 17 gm PO DAILY bottle 11/08/16 Torsemide [Demadex -] 20 mg PO DAILY tablet 11/08/16
[2016-11-08 13:32] LABS: PLATELET ESTIMATE ADEQUATE (NORMAL)
[2016-11-08 14:20] VITALS: BP 121/55; PULSE 78; TEMP 98.2
== END 2016-11-08 16:21 | DRG 463 ==
LOC: JER 05:58 → JERBED 13:25 → J4W 10-31 00:08 → J6S 11-01 16:36
PROVIDERS: ADMIT Internal Medicine; ATTEND Internal Medicine
PROC: 0SPU0JZ Removal of Synthetic Substitute from Left Knee Joint, Femoral Surface, Open Approach (ICD-10-PCS; 2016-11-02)
PROC: 0SRU0JZ Replacement of Left Knee Joint, Femoral Surface with Synthetic Substitute, Open Approach (ICD-10-PCS; principal; 2016-11-02 13:00)
PROC: 0JBQ0ZZ Excision of Right Foot Subcutaneous Tissue and Fascia, Open Approach (ICD-10-PCS; 2016-11-06)
DX: S72.8X2A Other fracture of left femur, initial encounter for closed fracture (principal); A41.9 Sepsis, unspecified organism; M97.02XA Periprosthetic fracture around internal prosthetic left hip joint, initial encounter; Z68.43 Body mass index [BMI] 50.0-59.9, adult; L03.115 Cellulitis of right lower limb; N39.0 Urinary tract infection, site not specified; I50.42 Chronic combined systolic (congestive) and diastolic (congestive) heart failure; L97.419 Non-pressure chronic ulcer of right heel and midfoot with unspecified severity; E78.00 Pure hypercholesterolemia, unspecified; Z79.4 Long term (current) use of insulin; J44.9 Chronic obstructive pulmonary disease, unspecified; Z99.81 Dependence on supplemental oxygen; E03.9 Hypothyroidism, unspecified; E66.01 Morbid (severe) obesity due to excess calories; Z87.891 Personal history of nicotine dependence; D64.9 Anemia, unspecified; E78.5 Hyperlipidemia, unspecified; W01.0XXA Fall on same level from slipping, tripping and stumbling without subsequent striking against object, initial encounter; Y93.89 Activity, other specified; Y92.89 Other specified places as the place of occurrence of the external cause; Y99.8 Other external cause status; I11.0 Hypertensive heart disease with heart failure; R09.02 Hypoxemia; R00.1 Bradycardia, unspecified; E11.621 Type 2 diabetes mellitus with foot ulcer; G47.30 Sleep apnea, unspecified
CPT/HCPCS: 36415; 36430; 71010-TC; 71275-TC; 73552-TC-LT; 73560-TC-LT; 73590-TC-LT; 73590-TC-RT; 73630-TC-RT; 80048; 80053; 81003; 81015; 82550; 82553; 82803; 83605; 83735; 83880; 84100; 84484; 85025; 85027; 85610; 85651; 85730; 86140; 86850; 86900; 86901; 86922; 87040; 87086; 87186; 88304-TC; 88311-TC; 93005; 93010; 93306-TC; 94010; 94760; 97116-GP; 97161-GP; 99285-25; P9038; P9058

== ENCOUNTER 2016-12-11 18:59 | Inpatient (IN) | payer OTHER ==
--- NOTE | 2016-12-11 19:14 | PDOC ---
History of Present Illness - History of Present Illness Initial Comments: 12/11/16 20:35 The patient is a 71 year old female, with a significant past medical history of CHF, COPD, anemia, diabetes, cellulitis, obesity, who presents to the emergency department via ems from [facility] for lab variances today. The patient was found to be febrile in the ED today, Tmax 101.5F. The patient reports a painful sore to her right buttock, which she reports obtaining after being left seated in a analisa lift for a few days at the nursing facility. Since May 2016, the patients hemoglobin has been in the range of 7.8-8.7. She denies chest pain, shortness of breath, headache and dizziness. She denies fever, chills, nausea, vomit, diarrhea and constipation. She denies dysuria, frequency, urgency and hematuria. Allergies: NKDA Past surgical history: s/p left femur fracture ORIF w/ Dr. Felder PCP - Dr. Duran [facility] - Dr. Byron Messer Armored Car Driver - Dr. Robert Rhodes <Aisha Arzate - Last Filed: 12/11/16 20:35> <Lyric Cates - Last Filed: 12/12/16 00:20> - General Chief Complaint: Revisit, Lab Variance Stated Complaint: Revisit, Lab Variance Time Seen by Provider: 12/11/16 19:10 Past History <Aisha Arzate - Last Filed: 12/11/16 20:35> - Past Medical History Anemia: No Asthma: No Cancer: No Cardiac Disorders: No CVA: No COPD: No CHF: No Dementia: No Diabetes: Yes (IDDM) Disorders: Yes (kidney stones) HTN: Yes Hypercholesterolemia: Yes Liver Disease: No Seizures: No Thyroid Disease: Yes (hypo) - Surgical History Abdominal Surgery: No Appendectomy: No Cardiac Surgery: No Cholecystectomy: No Lung Surgery: No Neurologic Surgery: No Orthopedic Surgery: Yes (LT PARTIAL KNEE REPLACEMENT) - Psycho/Social/Smoking Cessation Hx Anxiety: No Suicidal Ideation: No Smoking Status: No Smoking History: Former smoker Have you smoked in the past 12 months: No Number of Cigarettes Smoked Daily: 1 If you are a former smoker, when did you quit?: 1981 Hx Alcohol Use: No Drug/Substance Use Hx: No Substance Use Type: None Hx Substance Use Treatment: No <Lyric Cates - Last Filed: 12/12/16 00:20> - Past Medical History Allergies/Adverse Reactions: Allergies Allergy/AdvReac Type Severity Reaction Status Date / Time codeine [Codeine] Allergy Verified 12/11/16 20:07 shellfish derived Allergy Verified 12/11/16 20:07 tramadol AdvReac Mild Verified 12/11/16 20:07 Home Medications: Ambulatory Orders Aa/Hydrolyzed Collagen, Whey [Lps 15-30 Liquid] 30 ml PO BID 12/11/16 Acetaminophen 325 mg PO BID 12/11/16 Aspirin [ASA -] 81 mg PO DAILY 12/11/16 Collagenase Clostridium Hist. [Santyl] 1 applic TP DAILY 12/11/16 Docusate Sodium [Colace -] 100 mg PO BID 12/11/16 Enoxaparin [Lovenox -] 40 mg SQ DAILY 12/11/16 Garlic 100 mg PO DAILY 12/11/16 Glipizide 5 mg PO DAILY 12/11/16 Insulin Lispro [Humalog] 0 unit SQ ASDIR 12/11/16 Levothyroxine [Synthroid -] 75 mcg PO DAILY 12/11/16 Losartan Potassium [Cozaar -] 50 mg PO DAILY 12/11/16 Magnesium Oxide 400 mg PO BID 12/11/16 Metformin HCl [Metformin HCl ER] 500 mg PO BID 12/11/16 [place]-3 Fatty Acids/Fish Oil [Fish Oil 1,000 mg Softgel] 1 each PO DAILY Oxycodone HCl 10 mg PO ASDIR 12/11/16 Polyethylene Glycol 3350 [Miralax (For Daily Use) -] 17 gm PO DAILY 12/11/16 Potassium Chloride 20 meq PO DAILY 12/11/16 Simvastatin 40 mg PO DAILY 12/11/16 Torsemide 20 mg PO DAILY 12/11/16 Review of Systems - Review of Systems Able to Perform ROS?: Yes Comments:: 12/11/16 20:37 CONSTITUTIONAL: Absent: fever, chills, diaphoresis, generalized weakness, malaise, loss of appetite HEENT: Absent: rhinorrhea, nasal congestion, throat pain, throat swelling, difficulty swallowing, mouth swelling, ear pain, eye pain, visual Changes CARDIOVASCULAR: Absent: chest pain, syncope, palpitations, irregular heart rate, lightheadedness , peripheral edema RESPIRATORY: Absent: cough, shortness of breath, dyspnea with exertion, orthopnea, wheezing, stridor, hemoptysis GASTROINTESTINAL: Absent: abdominal pain, abdominal distension, nausea, vomiting, diarrhea, constipation, melena, hematochezia GENITOURINARY: Absent: dysuria, frequency, urgency, hesitancy, hematuria, flank pain, genital pain MUSCULOSKELETAL: Absent: myalgia, arthralgia, joint swelling SKIN: (+) painful skin ulcer to right buttock. Absent: rash, itching, pallor HEMATOLOGIC/IMMUNOLOGIC: Absent: easy bleeding, easy bruising, lymphadenopathy, frequent infections ENDOCRINE: Absent: unexplained weight gain, unexplained weight loss, heat intolerance, cold intolerance NEUROLOGIC: Absent: headache, focal weakness or paresthesias, dizziness, unsteady gait, seizure, mental status changes, bladder or bowel incontinence PSYCHIATRIC: Absent: anxiety, depression, suicidal or homicidal ideation, hallucinations. <Aisha Arzate - Last Filed: 12/11/16 20:35> *Physical Exam - Vital Signs Last Vital Signs Temp Pulse Resp BP Pulse Ox 101.0 F H 82 24 109/46 87 L 12/11/16 20:01 12/11/16 20:01 12/11/16 20:01 12/11/16 20:01 12/11/16 20:01 - Physical Exam Comments: 12/11/16 20:38 GENERAL: (+) Obese. Awake and alert. No acute distress. HEENT: Normocephalic, atraumatic. PERRLA, EOMI. No conjunctival pallor. Sclera are non- icteric. Moist mucous membranes. Oropharynx is clear. NECK: Supple. Full ROM. No JVD. Carotid pulses 2+ and symmetric, without bruits. No thyromegaly. No lymphadenopathy. CARDIOVASCULAR: Regular rate and rhythm. No murmurs, rubs, or gallops. Distal pulses are 2+ and symmetric. PULMONARY: No evidence of respiratory distress. Lungs clear to auscultation bilaterally. No wheezing, rales or rhonchi. ABDOMINAL: Soft. Non-tender. Non-distended. No rebound or guarding. No organomegaly. Normoactive bowel sounds. MUSCULOSKELETAL Normal range of motion at all joints. No bony deformities or tenderness. No CVA tenderness. EXTREMITIES: No cyanosis. No clubbing. No edema. No calf tenderness. SKIN: (+) 7cm x 3cm stage 23 ulceration of the right buttock with serosanguinous fluid draining, foul smelling. Warm and dry. Normal capillary refill. No rashes. No jaundice. NEUROLOGICAL: Alert, awake, appropriate. Cranial nerves 2-12 intact. Normoreflexic in the upper and lower extremities. Normal speech. Toes are down-going bilaterally. Gait is normal without ataxia. PSYCHIATRIC: Cooperative. Good eye contact. Appropriate mood and affect. RECTAL: (+) tarry stool <Aisha Arzate - Last Filed: 12/11/16 20:35> ED Treatment Course - LABORATORY CBC & Chemistry Diagram: 12/11/16 20:32 12/11/16 20:32 <Lyric Cates - Last Filed: 12/12/16 00:20> Medical Decision Making - Critical Care Time Total Critical Care Time (minutes): 60 Critical Care Statement: The care of this patient involved high complexity decision making to prevent further life threatening deterioration of the patient 's condition and/or to evalute & treat vital organ system(s) failure or risk of failure. - Medical Decision Making 12/12/16 00:08 71-year-old female brought in by ambulance from injury or alf for anemia. She does have a history of anemia and is being sent for admission and blood transfusions She was hypoxic at 87% on room air but she is oxygen dependent at home using 3 L nasal cannula at baseline Recently admitted to this hospital for ORIF for distal femur fracture in October of this year. Today She has significant pain on her right buttocks with an extensive ulcer 7cm x 6 cm with foul smelling serosanguineous drainage. Wound culture sent Patient was found to be febrile and sepsis workup was initiated UA positive foir UTI,levaquin ordered,urine cultures sent before ABX given -lactic acid is normal at 1.9 -cxr no infiiltrates appreciated, mild congestion hgb=6, hct 20 with normal platelet count - two units packed rbc ordered case discussd w Dr Barrientos who admitted this pt 12/12/16 00:14 <Lyric Cates - Last Filed: 12/12/16 00:20> *DC/Admit/Observation/Transfer - Attestations Scribe Attestion: 12/11/16 20:39 Documentation prepared by Aisha Arzate, acting as medical doctor for Lyric Cates MD <Aisha Arzate - Last Filed: 12/11/16 20:35> - Discharge Dispostion Admit: Yes <Lyric Cates - Last Filed: 12/12/16 00:20> Diagnosis at time of Disposition: Hypoxia, DM Diabetes mellitus Fever Qualifiers: Fever type: unspecified Qualified Code(s): R50.9 - Fever, unspecified Buttock wound Qualifiers: Encounter type: initial encounter Laterality: right Qualified Code(s): S31.819A - Unspecified open wound of right buttock, initial encounter Morbid obesity Qualifiers: Obesity type: due to excess calories Qualified Code(s): E66.01 - Morbid (severe ) obesity due to excess calories Anemia Qualifiers: Anemia type: unspecified type Qualified Code(s): D64.9 - Anemia, unspecified - Referrals
[2016-12-11] MEDS ORDERED: SODIUM CHLORIDE 0.9% 1000 ML INFUS.BAG IV PRN (19:45)
[2016-12-11 20:08] VITALS: BMI 51.0
[2016-12-11 20:54] LABS: BASOPHIL 0.2 % (0-2.0); EOSINOPHIL 2.3 % (0-4.5); MCH 25.1 pg (25.7-33.7); MCHC 30.6 g/dl (32.0-36.0); MEAN PLT VOLUME 8.5 fl (7.5-11.1); NEUTROPHILS 81.2 % (42.8-82.8); PLATELET COUNT 373 K/MM3 (134-434); RDW 19.9 % (11.6-15.6); WHITE BLOOD COUNT 12.3 K/mm3 (4.0-10.0)
[2016-12-11 21:05] LABS: VENOUS BLOOD GAS HCO3 30.3 meq/L (19-25); VENOUS PH 7.5 (7.32-7.42)
[2016-12-11 21:06] LABS: INR 1.18 (0.82-1.09)
[2016-12-11 21:16] LABS: ALBUMIN 2.2 g/dl (3.4-5.0); ALK PHOS 95 U/L (45-117); ANION GAP 8 (8-16); BILIRUBIN,TOTAL 0.3 mg/dL (0.2-1.0); CALCIUM 7.8 mg/dL (8.5-10.1); CO2 31 mmol/L (21-32); GLUCOSE,RANDOM 107 mg/dL (74-106); SGOT/AST 27 U/L (15-37); SGPT/ALT 23 U/L (12-78); TOT PROT 6.1 g/dl (6.4-8.2)
[2016-12-11] MEDS ORDERED: OXYCODONE/APAP 5/325MG COMBO TABLET PO ONE (21:16)
[2016-12-11 21:19] LABS: TROPONIN I < 0.02 ng/ml (0.00-0.05)
[2016-12-11] MEDS ORDERED: OXYCODONE/APAP 5/325MG COMBO TABLET ONE (21:28)
[2016-12-11 22:00] LABS: URINE APPEARANCE CLEAR; URINE BILIRUBIN NEGATIVE (NEGATIVE); URINE BLOOD NEGATIVE (NEGATIVE); URINE COLOR LTYELLOW; URINE GLUCOSE (UA) NEGATIVE (NEGATIVE); URINE KETONE NEGATIVE (NEGATIVE); URINE LEUK ESTERASE 3+ (NEGATIVE); URINE NITRITE POSITIVE (NEGATIVE); URINE PROTEIN NEGATIVE (NEGATIVE); URINE UROBILINOGEN NEGATIVE E.U./dl (0.2-1.0)
[2016-12-11 22:05] LABS: PLATELET ESTIMATE ADEQUATE (NORMAL)
[2016-12-11 22:06] LABS: ANISOCYTOSIS 1+; HYPOCHROMIA 1+; POLYCHROMASIA OCC
[2016-12-11 22:20] LABS: URINE BACTERIA MANY /hpf (NONE SEEN); URINE MUCUS MANY; URINE RBC <1 /hpf (0-3); URINE WBC 63 /hpf (3-5)
[2016-12-11] MEDS ORDERED: SODIUM CHLORIDE 1,000 ML IV SCH (23:45)
[2016-12-12] MEDS ORDERED: LEVOFLOXACIN 750 MG IVPB 150 ML IVPB ONE (00:13)
[2016-12-12] MEDS ORDERED: PIPERACILLIN/TAZOB 2.25 GM 50 ML IVPB ONE (02:00)
[2016-12-12] MEDS ORDERED: PIPERACILLIN/TAZOB 2.25 GM 50 ML IVPB SCH (02:00)
[2016-12-12] MEDS: ACETAMINOPHEN 325 MG TABLET (FP) PO PRN ×3 (02:51→19:18)
[2016-12-12] MEDS: glipiZIDE 5 MG TABLET (FP) PO SCH (06:30)
[2016-12-12] MEDS: LEVOTHYROXINE NA 75 MCG TABLET (FP) PO SCH (06:31)
--- NOTE | 2016-12-12 07:51 | CONSULT ---
- Consultation REQUESTING PROVIDER: Byron Messer CONSULT REQUEST: We have been asked to surgically evaluate this patient for right hip ulcer PCP: Donis Barrientos HPI: Called to evaluate 71yo female with PMHx noted below. Presents to [facility] ED via ems from [facility] for evaluation of her fevers. In the ED, patient had a Tmax 101.5F. Currently she is afebrile. The patient reports a painful sore to her right buttock, which she reports obtaining after being left seated in a analisa lift for a few days at the nursing facility. Since May 2016, the patient s hemoglobin has been in the range of 7.8-8.7. She is receiving PRBC transfusion. Denies CP, SOB, WALTERS, dizzy, weak, n/v/c, UTI, hematuria, hesitancy. PMHx: Morbidly obese, IDDM, CHF, Anemia, Cellulitis, kidney stones, HTN, Hypercholesterolemia, Hypothyroidism PSHx: Left partial knee replacement, Left femur fracture ORIF (Lent) Home Meds: Aa/Hydrolyzed Collagen, Whey [Lps 15-30 Liquid] 30 ml PO BID 12/11/16 Acetaminophen 325 mg PO BID 12/11/16 Aspirin [ASA -] 81 mg PO DAILY 12/11/16 Collagenase Clostridium Hist. [Santyl] 1 applic TP DAILY 12/11/16 Docusate Sodium [Colace -] 100 mg PO BID 12/11/16 Enoxaparin [Lovenox -] 40 mg SQ DAILY 12/11/16 Garlic 100 mg PO DAILY 12/11/16 Glipizide 5 mg PO DAILY 12/11/16 Insulin Lispro [Humalog] 0 unit SQ ASDIR 12/11/16 Levothyroxine [Synthroid -] 75 mcg PO DAILY 12/11/16 Losartan Potassium [Cozaar -] 50 mg PO DAILY 12/11/16 Magnesium Oxide 400 mg PO BID 12/11/16 Metformin HCl [Metformin HCl ER] 500 mg PO BID 12/11/16 [place]-3 Fatty Acids/Fish Oil [Fish Oil 1,000 mg Softgel] 1 each PO DAILY Oxycodone HCl 10 mg PO ASDIR 12/11/16 Polyethylene Glycol 3350 [Miralax (For Daily Use) -] 17 gm PO DAILY 12/11/16 Potassium Chloride 20 meq PO DAILY 12/11/16 Simvastatin 40 mg PO DAILY 12/11/16 Torsemide 20 mg PO DAILY 12/11/16 Allergies Codeine, shellfish derived, tramadol ROS: All systems reviewed and considered negative except for what's contained in HPI PE General: Awake and alert. NAD COR: RRR PULM: CTA b/l anteriorly ABD: obese. Soft. NT. LE: scar over left knee (see PSHx) BUTTOCK: ~ 7cm x 5 cm unstageable decubitus ulcer. Foul smelling. Purulent drainage. Surrounding erythema RECTAL: + tarry stool Last Vital Signs Temp Pulse Resp BP Pulse Ox 98.7 F 82 20 103/45 95 12/12/16 06:33 12/12/16 06:33 12/12/16 06:33 12/12/16 06:33 12/12/16 02:27 CBC, BMP 12/11/16 20:32 12/11/16 20:32 INR, PTT INR 1.18 (0.82-1.09) H 12/11/16 20:32 Blood Type Blood Type O POSITIVE 12/11/16 19:29 Problem List - Problems (1) Buttock wound Assessment/Plan: Please medically optimize/clear patient for debridement in OR 12/13 Make NPO after midnight except PO meds IV ABX GI / DVT PPX Code(s): S31.809A - UNSPECIFIED OPEN WOUND OF UNSPECIFIED BUTTOCK, INIT ENCNTR Qualifiers: Encounter type: initial encounter Laterality: right Qualified Code( s): S31.819A - Unspecified open wound of right buttock, initial encounter (2) Anemia Assessment/Plan: Transfuse PRBC PRN Monitor H/H Code(s): D64.9 - ANEMIA, UNSPECIFIED Qualifiers: Anemia type: unspecified type Qualified Code(s): D64.9 - Anemia, unspecified (3) DM Diabetes mellitus Assessment/Plan: Sliding scale Tight glycemic control Code(s): E11.9 - TYPE 2 DIABETES MELLITUS WITHOUT COMPLICATIONS Visit type - Case Type Case Type: ED Admission - Emergency Emergency Visit: Yes ED Registration Date: 12/11/16 Care time: The patient presented to the Emergency Department on the above date and was hospitalized for further evaluation of their emergent condition. - New patient This patient is new to me today: Yes Date on this admission: 12/12/16
[2016-12-12 09:05] LABS: BASOPHIL 0.2 % (0-2.0); EOSINOPHIL 1.8 % (0-4.5); MCH 26.2 pg (25.7-33.7); MCHC 32.3 g/dl (32.0-36.0); MEAN PLT VOLUME 7.5 fl (7.5-11.1); NEUTROPHILS 83.9 % (42.8-82.8); PLATELET COUNT 315 K/MM3 (134-434); RDW 19.3 % (11.6-15.6); WHITE BLOOD COUNT 10.1 K/mm3 (4.0-10.0)
[2016-12-12 09:36] LABS: ALBUMIN 2.2 g/dl (3.4-5.0); ANION GAP 7 (8-16); CO2 34 mmol/L (21-32); CREATININE 0.9 mg/dL (0.55-1.02); GLUCOSE,RANDOM 99 mg/dL (74-106); SGOT/AST 19 U/L (15-37)
[2016-12-12 09:41] LABS: ALK PHOS 93 U/L (45-117); BILIRUBIN,TOTAL 0.8 mg/dL (0.2-1.0); SGPT/ALT 21 U/L (12-78)
[2016-12-12] MEDS ORDERED: ENOXAPARIN NA (PORCINE) 40 MG/0.4 ML DISP.SYRIN SQ SCH (10:00)
[2016-12-12] MEDS ORDERED: PATIENT'S OWN MEDICATION (NON-FORMULARY) (Aa/Hydrolyzed Collagen, Whey [Lps 15-30 Liquid] PO SCH (10:00)
[2016-12-12] MEDS ORDERED: ACETAMINOPHEN 325 MG TABLET (FP) PO SCH (10:00)
[2016-12-12] MEDS ORDERED: GARLIC 100 MG PO SCH (10:00)
[2016-12-12] MEDS: MAGNESIUM OXIDE 400 MG TABLET (FP) PO SCH ×2 (10:08→22:11)
[2016-12-12] MEDS: TORSEMIDE 20 MG TABLET (FP) PO SCH (10:08)
[2016-12-12] MEDS: POTASSIUM CHLORIDE TABS 20 MEQ TABLET.ER (FP) PO SCH (10:08)
[2016-12-12] MEDS: ASPIRIN 81 MG CHEWABLE TABLETS PO SCH ×2 (10:08→14:47)
[2016-12-12] MEDS: LOSARTAN POTASSIUM 50 MG TABLET (FP) PO SCH (10:08)
[2016-12-12] MEDS: DOCUSATE SODIUM 100 MG CAPSULE (FP) PO SCH ×3 (10:08→22:14)
[2016-12-12] MEDS: POLYETHYLENE GLYCOL 3350 119 GM BTL PO SCH (10:09)
--- NOTE | 2016-12-12 13:35 | EKG ---
Test Reason : Blood Pressure : / mmHG Vent. Rate : 079 BPM Atrial Rate : 079 BPM P-R Int : 168 ms QRS Dur : 084 ms QT Int : 382 ms P-R-T Axes : 065 -29 043 degrees QTc Int : 438 ms SINUS RHYTHM WITH PREMATURE ATRIAL COMPLEXES CANNOT RULE OUT INFERIOR INFARCT , AGE UNDETERMINED ABNORMAL ECG WHEN COMPARED WITH ECG OF 11-DEC-2016 19:34, PREMATURE ATRIAL COMPLEXES ARE NOW PRESENT Confirmed by BAUTISTA KENNEY, TERRA ([id number]) on 12/12/2016 1:34:52 PM Referred By: Katherine BAIRD Confirmed By:TERRA BAUM MD
--- NOTE | 2016-12-12 13:37 | EKG ---
Test Reason : Blood Pressure : / mmHG Vent. Rate : 083 BPM Atrial Rate : 083 BPM P-R Int : 162 ms QRS Dur : 074 ms QT Int : 372 ms P-R-T Axes : 061 -26 038 degrees QTc Int : 437 ms NORMAL SINUS RHYTHM NORMAL ECG WHEN COMPARED WITH ECG OF 30-OCT-2016 08:47, PREMATURE ATRIAL COMPLEXES ARE NO LONGER PRESENT Confirmed by TERRA BAUM MD ([id number]) on 12/12/2016 1:36:57 PM Referred By: Confirmed By:TERRA BAUM MD
--- NOTE | 2016-12-12 14:22 | HP ---
Admitting History and Physical - Primary Care Physician PCP: Alex Duran - Admission Chief Complaint: My back hurts History of Present Illness: Ms Vázquez is a very pleasant 71 year old female who comes in from [facility] with anemia and rectal abscess. She was recently discharged to [facility] after undergoing femur repair. While there she says they were using an Chelo lift and would leave her in the strap for hours while sitting. She began to notice she started having a lot of pain in her back and gluteal area. She was also noted to have increasing anemia while there. She said she was not feeling feverish but was noted to have a fever. She denies chills, lightheadedness, dizziness, chest pain, shortness of breath, nausea, vomiting, diarrhea, constipation, difficulty or pain on urination, melena, bright red blood per rectum. She has chronic swelling which is unchanged. Her foot wound is healing well. History Source: Patient Limitations to Obtaining History: No Limitations - Past Medical History Cardiovascular: Yes: CHF, HTN Pulmonary: Yes: COPD, Sleep Apnea Renal/: Yes: Renal Calculi (s/p lithotripsy) Heme/Onc: Yes: Anemia Musculoskeletal: Yes: Chronic low back pain Endocrine: Yes: Diabetes Mellitus, Hypothyroidism, Other (morbid obesity) - Past Surgical History Past Surgical History: Yes: Joint Replacement (left knee (partial replacement)) - Smoking History Smoking history: Former smoker Have you smoked in the past 12 months: No Aproximately how many cigarettes per day: 1 If you are a former smoker, when did you quit?: 1981 - Alcohol/Substance Use Hx Alcohol Use: No History of Substance Use: reports: None - Social History Usual Living Arrangement: Yes: Long Term ADL: Support Services 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 [Santyl] 1 applic TP DAILY 12/11/16 Docusate Sodium [Colace -] 100 mg PO BID 12/11/16 Enoxaparin [Lovenox -] 40 mg SQ DAILY 12/11/16 Garlic 100 mg PO DAILY 12/11/16 Glipizide 5 mg PO DAILY 12/11/16 Insulin Lispro [Humalog] 0 unit SQ ASDIR 12/11/16 Levothyroxine [Synthroid -] 75 mcg PO DAILY 12/11/16 Losartan Potassium [Cozaar -] 50 mg PO DAILY 12/11/16 Magnesium Oxide 400 mg PO BID 12/11/16 Metformin HCl [Metformin HCl ER] 500 mg PO BID 12/11/16 [place]-3 Fatty Acids/Fish Oil [Fish Oil 1,000 mg Softgel] 1 each PO DAILY Oxycodone HCl 10 mg PO ASDIR 12/11/16 Polyethylene Glycol 3350 [Miralax (For Daily Use) -] 17 gm PO DAILY 12/11/16 Potassium Chloride 20 meq PO DAILY 12/11/16 Simvastatin 40 mg PO DAILY 12/11/16 Torsemide 20 mg PO DAILY 12/11/16 Family Disease History - Family Disease History Family Disease History: Heart Disease: Mother, CA: Father (colon) Review of Systems Findings/Remarks: Full review of systems obtained, as per HPI and otherwise negative Physical Examination Vital Signs: Vital Signs Temperature 98.7 F 12/12/16 06:33 Pulse Rate 82 12/12/16 06:33 Respiratory Rate 20 12/12/16 06:33 Blood Pressure 103/45 12/12/16 06:33 O2 Sat by Pulse Oximetry (%) 95 12/12/16 02:27 Constitutional: Yes: No Distress, Calm, Obese Eyes: Yes: Conjunctiva Clear, EOM Intact, PERRL HENT: Yes: Atraumatic, Normocephalic Cardiovascular: Yes: Regular Rate and Rhythm. No: Gallop, Murmur, Rub Respiratory: Yes: Regular, CTA Bilaterally. No: Rales, Rhonchi, Wheezes Gastrointestinal: Yes: Normal Bowel Sounds, Soft. No: Distention, Tenderness Extremities: Yes: WNL Edema: Yes Edema: LLE: 1+, RLE: 1+ Labs: CBC, BMP 12/12/16 08:45 12/12/16 08:45 Imaging - Results Chest X-ray: Report Reviewed, Image Reviewed Problem List - Problems (1) Buttock wound Assessment/Plan: -patient presents with buttock wound -suspect decubitus ulcer -appreciate vascular surgery assistance -planning for I&D tomorrow -ID consulted for broad spectrum antibiotics Code(s): S31.809A - UNSPECIFIED OPEN WOUND OF UNSPECIFIED BUTTOCK, INIT ENCNTR Qualifiers: Encounter type: initial encounter Laterality: right Qualified Code( s): S31.819A - Unspecified open wound of right buttock, initial encounter (2) Anemia Assessment/Plan: -history of anemia, worsened -s/p 2 units with proper response -hemoccult positive, but unclear if true GI bleed -consult GI -may be secondary to buttock wound with bleeding or AOCD -monitor Code(s): D64.9 - ANEMIA, UNSPECIFIED Qualifiers: Anemia type: unspecified type Qualified Code(s): D64.9 - Anemia, unspecified (3) Morbid obesity Assessment/Plan: -will need outpatient weight loss plan -complicated by lack of movement Code(s): E66.01 - MORBID (SEVERE) OBESITY DUE TO EXCESS CALORIES Qualifiers: Obesity type: due to excess calories Qualified Code(s): E66.01 - Morbid (severe) obesity due to excess calories (4) Benign hypertension Assessment/Plan: -continue cozaar and demadex -well controlled Code(s): I10 - ESSENTIAL (PRIMARY) HYPERTENSION (5) HLD (hyperlipidemia) Assessment/Plan: -continue lipitor Code(s): E78.5 - HYPERLIPIDEMIA, UNSPECIFIED (6) Hypothyroid Assessment/Plan: -continue synthroid Code(s): E03.9 - HYPOTHYROIDISM, UNSPECIFIED (7) Diabetes Assessment/Plan: -continue glipizide and metformin Code(s): E11.9 - TYPE 2 DIABETES MELLITUS WITHOUT COMPLICATIONS Qualifiers: Diabetes mellitus type: type 2 Diabetes mellitus complication status: with skin complications Diabetes mellitus complication detail: with foot ulcer Diabetes mellitus medical terminologist insulin use: with care home use Qualified Code(s): E11.621 - Type 2 diabetes mellitus with foot ulcer; L97.509 - Non-pressure chronic ulcer of other part of unspecified foot with unspecified severity; Z79.4 - medical terminologist (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 of insulin
--- NOTE | 2016-12-12 14:49 | PN ---
Progress Note (short form) - Note Progress Note: ID consult dictated imp/reccd 71 year old female admitted with infected foulsmelling buttock ulcer and fever she was recently hospitilized in October after she sustained a fall and fracture requiring a Left TKR revisionl her hospital course was complicated by group A strep bacteremia- she was treated for 10 days with iv ceftriaxone and clindamycin she reports going to rehab and developing a sacral ulcer shortly after her admission there the ulcer is now very foulsmelling fever has resolved after admission-she received zosyn in the ED prior history of MRSA/Pseudomonas in her left foot ulcer which has healed infected buttock ulcer continue vanco/zosyn f/u cultures surgical debridement scheduled for am
--- NOTE | 2016-12-12 15:59 | CONS ---
DATE OF CONSULTATION: DATE OF DICTATION: 12/12/2016 INFECTIOUS DISEASE CONSULTATION REQUESTING PHYSICIAN: Donis Barrientos M.D. CONSULTING PHYSICIAN: Butch Hargrove M.D. HISTORY OF PRESENT ILLNESS: This is a 71-year-old woman extensive past medical history including obesity and diabetes, recurrent cellulitis of her legs. She is status post recent femur fracture and had a left total knee replacement revision on November 02. She was subsequently [facility] to [facility]. On the she reports after getting there that she developed a progressively worsening ulcer on her right buttock. She was sent to the emergency room for abnormal labs; when she got there, she was found to have a fever of 101.5 and noted to have a foul smelling undermined buttock ulcer, admitted for further evaluation. PAST MEDICAL HISTORY: Notable for obesity, diabetes, congestive heart failure, anemia, cellulitis, nephrolithiasis, hypertension, hypercholesterolemia, hypothyroidism. She had a prolonged admission in May of this year when she had the infected ulcer on her right leg that required aggressive debridement and prolonged IV antibiotics. Wound cultures at that time were polymicrobial including MRSA and pseudomonas. She was ultimately discharged home and readmitted in October 30 to November 08 after she sustained a fall and a fracture which resulted in the left revision TKR, total knee replacement, on November 02. She is currently resting comfortably without any complaints, although she says the sacral ulcer is quite painful. She is allergic to CODEINE, SHELLFISH, and TRAMADOL. On her last admission, she was started on vancomycin and Zosyn and switched to clindamycin and Rocephin when she was noted to have a group A Streptococcus bacteremia, and she was treated for 10 days with IV clindamycin and Rocephin. Her medications at the correction include metformin, potassium, aspirin, magnesium, Cozaar, insulin, oxycodone, simvastatin, Synthroid, Colace, furosemide, Lovenox, acetaminophen, and glipizide. SOCIAL HISTORY: When she is not in the correction, she resides at home. She is a former smoker, stopped smoking many years ago, no history of any alcohol or substance use. 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 REVIEW OF SYSTEMS: She denies nausea, vomiting, diarrhea, dysuria. PHYSICAL EXAMINATION: General: She is awake and alert. Vital signs: Temperature 98.7, pulse of 82, blood pressure 103/45, respiratory rate 20, she weighs 275 pounds. HEENT: Normocephalic. Eyes are anicteric. Neck: Supple. Lungs: Clear to auscultation. Heart: Regular rate and rhythm. Abdomen: Soft, nontender. Extremities: Her right foot is well healed. She has no open lesions. She has multiple scars. Her left total knee replacement incision is clean and dry. There is no erythema. On her right buttock she has a large sacral ulcer that is undermined and foul smelling with some surrounding erythema. LABORATORY: Notable for white count on admission of 12.3, today 10.1. Hemoglobin is 8.4, platelets of 315. BUN and creatinine are 35 and 0.9. LFTs are normal. Cultures are pending. Both of the urine, blood, and wound. IMPRESSION: In summary, this is an obese diabetic woman with an infected buttock ulcer. She has a history of prior methicillin resistant Staphylococcus aureus and pseudomonas. She has a history of prior group A Streptococcus bacteremia. I would continue vancomycin and Zosyn as ordered and follow up her culture. Surgical debridement is scheduled in the morning. BUTCH HARGROVE M.D. [id number]
--- NOTE | 2016-12-12 16:37 | CON.GI ---
Consult Consult Specialty:: GI Referred by:: Dr. Griggs Reason for Consultation:: Anemia / Guaiac Positive stool - History of Present Illness Chief Complaint: "My blood count was low" History of Present Illness: 71 year old female admitted with infected foul smelling buttock ulcer and fever. She was also found to have a Hgb of 6.4, FOBT was + and she has never had an upper endoscopy or colonoscopy. She was recently hospitilized in October after she sustained a fall and fracture requiring a Left TKR revision. Hgb was 7.8 11/07. her hospital course at that time was complicated by group A strep bacteremia- she was treated for 10 days with iv ceftriaxone and clindamycin. She also explains that she subsequently developed a sore on her right buttock that was causing her significant pain and was foul smelling. She has been seen by ID and Abx are being continued. There are also plans for debridement of buttock wound tomorrow in OR. There has been no reported abdominal pain, gross rectal bleeding or melena. There has been no recent NSAID use. Her father had a history of colon cancer when he was "up there in age". - History Source History Provided By: Patient Limitations to Obtaining History: No Limitations - Past Medical History Cardio/Vascular: Yes: CHF, HTN Pulmonary: Yes: COPD, Sleep Apnea Renal/: Yes: Renal Calculi (s/p lithotripsy) Musculoskeletal: Yes: Chronic low back pain Endocrine: Yes: Diabetes Mellitus, Hypothyroidism, Other (morbid obesity) Additional Medical History: MRSA/Pseudomonas in her left foot ulcer that has healed - Past Surgical History Past Surgical History: Yes: Joint Replacement (left knee (partial replacement)) - Alcohol/Substance Use Hx Alcohol Use: No History of Substance Use: reports: None - Smoking History Smoking history: Former smoker Have you smoked in the past 12 months: No Aproximately how many cigarettes per day: 1 If you are a former smoker, when did you quit?: 1981 - Social History Usual Living Arrangement: Other () ADL: Support Services 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 [Santyl] 1 applic TP DAILY 12/11/16 Docusate Sodium [Colace -] 100 mg PO BID 12/11/16 Enoxaparin [Lovenox -] 40 mg SQ DAILY 12/11/16 Garlic 100 mg PO DAILY 12/11/16 Glipizide 5 mg PO DAILY 12/11/16 Insulin Lispro [Humalog] 0 unit SQ ASDIR 12/11/16 Levothyroxine [Synthroid -] 75 mcg PO DAILY 12/11/16 Losartan Potassium [Cozaar -] 50 mg PO DAILY 12/11/16 Magnesium Oxide 400 mg PO BID 12/11/16 Metformin HCl [Metformin HCl ER] 500 mg PO BID 12/11/16 [place]-3 Fatty Acids/Fish Oil [Fish Oil 1,000 mg Softgel] 1 each PO DAILY Oxycodone HCl 10 mg PO ASDIR 12/11/16 Polyethylene Glycol 3350 [Miralax (For Daily Use) -] 17 gm PO DAILY 12/11/16 Potassium Chloride 20 meq PO DAILY 12/11/16 Simvastatin 40 mg PO DAILY 12/11/16 Torsemide 20 mg PO DAILY 12/11/16 Family Disease History - Family Disease History Family Disease History: Heart Disease: Mother ( s: CAD/Dementia), CA: Father ( in late s: h/o colon ca), Other: Brother (Alive: HTN/DM II) Other Family History: No children Review of Systems - Review of Systems Cardiovascular: denies: Chest Pain Respiratory: reports: SOB (chronic and at baseline) Gastrointestinal: denies: Abdominal Pain, Constipation, Diarrhea, Melena, Rectal Bleeding Musculoskeletal: reports: Joint Pain, Other (right buttock pain) Physical Exam-GI Vital Signs: Vital Signs Temperature 98.0 F 12/12/16 15:23 Pulse Rate 75 12/12/16 15:23 Respiratory Rate 20 12/12/16 15:23 Blood Pressure 115/54 12/12/16 15:23 O2 Sat by Pulse Oximetry (%) 95 12/12/16 02:27 Constitutional: Yes: Calm Eyes: No: Sclera Icterus Neck: Yes: Supple Cardiovascular: Yes: Regular Rate and Rhythm. No: Murmur Respiratory: Yes: CTA Bilaterally Gastrointestinal Inspection: No: Distention, Scars ...Auscultate: Yes: Normoactive Bowel Sounds ...Percussion: No: Tympanitic ...Rectal Exam: Yes: Other (actively having BM: soft dark brown stool, no melena or gross blood, guaiac +, no masses palpated.) Musculoskeletal: Yes: Other (gaping purulent wound, right buttock) Edema: Yes (b/l LE) Neurological: Yes: Alert, Oriented Labs: CBC, BMP 12/12/16 08:45 12/12/16 08:45 INR, PTT INR 1.18 (0.82-1.09) H 12/11/16 20:32 Problem List - Problems (1) Anemia Assessment/Plan: Likely multifactorial including anemia of chronic disease, sepsis secondary to buttock wound, however to evaluate FOBT being positive, worsened anemia with elevated BUN out of proportion to Cr and family history of colon cancer, we discussed EGD and colonoscopy to exclude bleeding sources such as PUD, bleeding blood vessels, polyps and cancers of the GI tract such as colon cancer. We discussed potential risks of the procedure like but not limited to bleeding, perforation requiring surgery to repair, infection and sedation medication effects all of which could be potentially life threatening. She said that while she would "like to rule out those things", she would like her buttock wound addressed first. She is scheduled for the OR tomorrow. I have stopped ASA 81mg once daily, added Protonix 40mg PO BID and upper endoscopy / colonoscopy can be pursued when Ms. Vázquez is able to have them performed. Monitor for active GI bleeding. Cardio eval preprocedures. Thank you for this consultative opportunity Code(s): D64.9 - ANEMIA, UNSPECIFIED Qualifiers: Anemia type: unspecified type Qualified Code(s): D64.9 - Anemia, unspecified
[2016-12-12] MEDS: PIPERACILLIN/TAZOB 4.5 GM/100 ML PRE-DOCKED IVPB SCH ×2 (17:04→19:13)
[2016-12-12] MEDS: VANCOMYCIN 1,250 MG in DEXTROSE 5%-WATER - 250 ML IVPB SCH ×2 (17:06)
[2016-12-12] MEDS ORDERED: oxyCODONE HCL 5 MG TABLET PO PRN (20:49)
[2016-12-12] MEDS ORDERED: PT OWN MED DRAWER 7, Y5N ONE (21:05)
[2016-12-12] MEDS ORDERED: ATORVASTATIN CA 20 MG TABLET (FP) PO SCH (22:00)
[2016-12-12] MEDS: PANTOPRAZOLE 40 MG TABLET (FP) PO SCH (22:11)
[2016-12-12] MEDS: COLLAGENASE CLOSTRIDIUM HIST. 30 GRAMS TUBE TP SCH (22:13)
[2016-12-13] MEDS ORDERED: DEXTROSE 5%-0.45% SALINE 1,000 ML IV SCH
[2016-12-13] MEDS: PIPERACILLIN/TAZOB 4.5 GM/100 ML PRE-DOCKED IVPB SCH ×3 (01:22→18:00)
[2016-12-13] MEDS: VANCOMYCIN 1,250 MG in DEXTROSE 5%-WATER - 250 ML IVPB SCH ×3 (03:03→22:44)
[2016-12-13] MEDS: glipiZIDE 5 MG TABLET (FP) PO SCH (06:25)
[2016-12-13] MEDS: LEVOTHYROXINE NA 75 MCG TABLET (FP) PO SCH (06:25)
[2016-12-13 07:28] LABS: BASOPHIL 0.1 % (0-2.0); EOSINOPHIL 4.6 % (0-4.5); MCH 25.5 pg (25.7-33.7); MCHC 31.2 g/dl (32.0-36.0); MEAN CELL VOLUME 81.8 fl (80-96); MEAN PLT VOLUME 7.8 fl (7.5-11.1); NEUTROPHILS 85.9 % (42.8-82.8); PLATELET COUNT 340 K/MM3 (134-434); RDW 19.5 % (11.6-15.6); WHITE BLOOD COUNT 11.1 K/mm3 (4.0-10.0)
[2016-12-13 07:48] LABS: ANION GAP 7 (8-16); CALCIUM 7.7 mg/dL (8.5-10.1); CO2 33 mmol/L (21-32); GLUCOSE,RANDOM 147 mg/dL (74-106); MAGNESIUM 2.5 mg/dL (1.8-2.4)
[2016-12-13 07:49] LABS: CREATININE 0.8 mg/dL (0.55-1.02); PHOSPHOROUS 4.1 mg/dL (2.5-4.9)
[2016-12-13] MEDS ORDERED: LIDOCAINE HCL 1%, 10 MG/ML (20ML VIAL) ONE (08:17)
[2016-12-13] MEDS ORDERED: PT OWN MED DRAWER 7, Y5N ONE ×2 (10:08→17:36)
--- NOTE | 2016-12-13 10:21 | CON.CARD ---
Cardiology Consult (text) - Consultation Consultation Note: Chief Complaint: fever, anemia History of Present Illness: 71 yo female sent from [facility] for fever and anemia. Recent admit for hip fx sp surgery. Admitted now for severe anemia requiring prbcs and buttock ulcer. No cp, sob, palps, dizzy, loc, pnd, orthopnea, le edema. PMH: obesity mixed diast/syst chf HTN - Past Medical History Cardio/Vascular: Yes: CHF, HTN Pulmonary: Yes: COPD, Sleep Apnea Renal/: Yes: Renal Calculi (s/p lithotripsy) Musculoskeletal: Yes: Chronic low back pain Endocrine: Yes: Diabetes Mellitus, Hypothyroidism, Other (morbid obesity) - Past Surgical History Past Surgical History: Yes: Joint Replacement (left knee (partial replacement)) - Alcohol/Substance Use Hx Alcohol Use: No History of Substance Use: reports: None - Smoking History Smoking history: Former smoker Have you smoked in the past 12 months: No Aproximately how many cigarettes per day: 1 If you are a former smoker, when did you quit?: 1981 - Social History ADL: Independent 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 1 applic TP DAILY 12/11/16 [Santyl] Docusate Sodium [Colace -] 100 mg PO BID 12/11/16 Enoxaparin [Lovenox -] 40 mg SQ DAILY 12/11/16 Garlic 100 mg PO DAILY 12/11/16 Glipizide 5 mg PO DAILY 12/11/16 Insulin Lispro [Humalog] 0 unit SQ ASDIR 12/11/16 Levothyroxine [Synthroid -] 75 mcg PO DAILY 12/11/16 Losartan Potassium [Cozaar -] 50 mg PO DAILY 12/11/16 Magnesium Oxide 400 mg PO BID 12/11/16 Metformin HCl [Metformin HCl ER] 500 mg PO BID 12/11/16 [place]-3 Fatty Acids/Fish Oil [Fish 1 each PO DAILY 12/11/16 Oil 1,000 mg Softgel] Oxycodone HCl 10 mg PO ASDIR 12/11/16 Polyethylene Glycol 3350 [Miralax 17 gm PO DAILY 12/11/16 (For Daily Use) -] Potassium Chloride 20 meq PO DAILY 12/11/16 Simvastatin 40 mg PO DAILY 12/11/16 Torsemide 20 mg PO DAILY 12/11/16 ros: per hpi; no cough, nvd, wt loss, reyes, vision changes, muscle aches, nasal congestion Family Disease History - Family Disease History Family Disease History: Heart Disease: Mother, CA: Father (colon) Vital Signs: Vital Signs Period Temp Pulse Resp BP Sys/Donohue Pulse Ox Last 24 Hr 97.8 F-98.5 F 75-83 20-20 93-115/49-63 95 calm, nad no icterus/xanthelasma no JVD (extremely obese neck) no carotid bruit RRR, decr intensity (habitus), no murmur/gallop; PMI not palpable abdomen very obese, TDS for masses/pulsation--none appreciated; nontender; not distended + normal BS mild nonpitting edema bilat pretib, no cyanosis A and O x3, normal affect not agitated pos dp pt no jaundice diaphoresis - Other Data Labs, Other Data: Laboratory Last Values WBC 11.1 K/mm3 (4.0-10.0) H 12/13/16 06:00 RBC 3.30 M/mm3 (3.60-5.2) L 12/13/16 06:00 Hgb 8.4 GM/dL (10.7-15.3) L 12/13/16 06:00 Hct 27.0 % (32.4-45.2) L 12/13/16 06:00 MCV 81.8 fl (80-96) 12/13/16 06:00 MCHC 31.2 g/dl (32.0-36.0) L 12/13/16 06:00 RDW 19.5 % (11.6-15.6) H 12/13/16 06:00 Plt Count 340 K/MM3 (134-434) 12/13/16 06:00 MPV 7.8 fl (7.5-11.1) 12/13/16 06:00 Neutrophils % 85.9 % (42.8-82.8) H 12/13/16 06:00 Lymphocytes % 7.1 % (8-40) L 12/13/16 06:00 Monocytes % 2.3 % (3.8-10.2) L 12/13/16 06:00 Eosinophils % 4.6 % (0-4.5) H D 12/13/16 06:00 Basophils % 0.1 % (0-2.0) 12/13/16 06:00 Platelet Estimate Adequate (NORMAL) 12/11/16 20:32 Polychromasia Occ 12/11/16 20:32 Hypochromic-Microcytic 1+ 12/11/16 20:32 Anisocytosis 1+ 12/11/16 20:32 INR 1.18 (0.82-1.09) H 12/11/16 20:32 PTT (Actin FS) 26.7 SECONDS (26.9-34.4) L 12/11/16 20:32 VBG pH 7.50 (7.32-7.42) H 12/11/16 19:50 POC VBG pCO2 38.8 mmHg (38-52) 12/11/16 19:50 POC VBG pO2 65.5 mmHg (28-48) H D 12/11/16 19:50 Mixed VBG HCO3 30.3 meq/L (19-25) H 12/11/16 19:50 Sodium 138 mmol/L (136-145) 12/13/16 06:00 Potassium 4.3 mmol/L (3.5-5.1) 12/13/16 06:00 Chloride 98 mmol/L (98-107) 12/13/16 06:00 Carbon Dioxide 33 mmol/L (21-32) H 12/13/16 06:00 Anion Gap 7 (8-16) L 12/13/16 06:00 BUN 26 mg/dL (7-18) H D 12/13/16 06:00 Creatinine 0.8 mg/dL (0.55-1.02) 12/13/16 06:00 Creat Clearance w eGFR > 60 (>60) 12/12/16 08:45 POC Glucometer 164 UNITS (()) 12/13/16 06:24 Random Glucose 147 mg/dL (74-106) H D 12/13/16 06:00 Lactic Acid 1.9 mmol/L (0.4-2.0) 12/11/16 20:23 Calcium 7.7 mg/dL (8.5-10.1) L 12/13/16 06:00 Phosphorus 4.1 mg/dL (2.5-4.9) D 12/13/16 06:00 Magnesium 2.5 mg/dL (1.8-2.4) H D 12/13/16 06:00 Total Bilirubin 0.8 mg/dL (0.2-1.0) D 12/12/16 08:45 AST 19 U/L (15-37) D 12/12/16 08:45 ALT 21 U/L (12-78) 12/12/16 08:45 Alkaline Phosphatase 93 U/L (45-117) 12/12/16 08:45 Creatine Kinase 34 IU/L (26-192) 12/11/16 20:32 Troponin I < 0.02 ng/ml (0.00-0.05) 12/11/16 20:32 Total Protein 6.0 g/dl (6.4-8.2) L 12/12/16 08:45 Albumin 2.2 g/dl (3.4-5.0) L 12/12/16 08:45 Urine Color Ltyellow 12/11/16 21:14 Urine Appearance Clear 12/11/16 21:14 Urine pH 6.0 (5.0-8.0) 12/11/16 21:14 Ur Specific [place] 1.010 (1.005-1.025) 12/11/16 21:14 Urine Protein Negative (NEGATIVE) 12/11/16 21:14 Urine Glucose (UA) Negative (NEGATIVE) 12/11/16 21:14 Urine Ketones Negative (NEGATIVE) 12/11/16 21:14 Urine Blood Negative (NEGATIVE) 12/11/16 21:14 Urine Nitrite Positive (NEGATIVE) 12/11/16 21:14 Urine Bilirubin Negative (NEGATIVE) 12/11/16 21:14 Urine Urobilinogen Negative E.U./dl (0.2-1.0) 12/11/16 21:14 Ur Leukocyte Esterase 3+ (NEGATIVE) H 12/11/16 21:14 Urine RBC <1 /hpf (0-3) 12/11/16 21:14 Urine WBC 63 /hpf (3-5) 12/11/16 21:14 Urine Bacteria Many /hpf (NONE SEEN) 12/11/16 21:14 Urine Mucus Many 12/11/16 21:14 Stool Occult Blood Positive (NEGATIVE) 12/11/16 20:56 Blood Type O POSITIVE 12/11/16 19:29 Antibody Screen Negative 12/11/16 19:29 Crossmatch See Detail 12/11/16 19:29 ecg 12/12/16: sr, nl intervals, no ischemic changes cxr: no sig chf stress MPI 06/08: no ischemic EKG changes. nl perfusion. EF 45%, global. Echo 02/2016: suboptimal. grossly nl lv size. Mild-mod LV dysfunction. RV not well seen. Mild ARLYN. Mod TR. RVSP 40-50. Small effusion < 1 cm. echo 10/2016: tds; low nl lvef, nl rv, mild lae, mod tr, rvsp 40-50 a/p: pre-operative eval: - RCRI = 2, unknown functional status (probably reduced) - no signs/sx of active ischemic heart dz or decomp chf - no ischemia on nuclear stress test 5 mo ago, recent echo w/o severe abnormalities - she has acceptable (intermediate) risk of periop CV complications and may proceed without further cardiac testing for the planned wound debridement and foc/egd. systolic dysfunction, chronic mixed syst/diast chf: - episode chf 06/08, EF mildly reduced then, diuresed in hospital - cont cozaar - on torsemide 20 at home, cont same HTN - bp controlled on cozaar anemia: - hgb in 6s on admit, s/p prbcs now with improvement in hgb - planned for egd/foc here HLD - con't statin
[2016-12-13] MEDS: MAGNESIUM OXIDE 400 MG TABLET (FP) PO SCH ×2 (10:27→22:41)
[2016-12-13] MEDS: POTASSIUM CHLORIDE TABS 20 MEQ TABLET.ER (FP) PO SCH (10:27)
[2016-12-13] MEDS: DOCUSATE SODIUM 100 MG CAPSULE (FP) PO SCH ×2 (10:27→22:41)
[2016-12-13] MEDS: PANTOPRAZOLE 40 MG TABLET (FP) PO SCH ×2 (10:27→22:41)
[2016-12-13] MEDS: TORSEMIDE 20 MG TABLET (FP) PO SCH (10:27)
[2016-12-13] MEDS: LOSARTAN POTASSIUM 50 MG TABLET (FP) PO SCH (10:28)
[2016-12-13] MEDS: POLYETHYLENE GLYCOL 3350 119 GM BTL PO SCH (10:29)
[2016-12-13] MEDS: COLLAGENASE CLOSTRIDIUM HIST. 30 GRAMS TUBE TP SCH (10:29)
--- NOTE | 2016-12-13 10:54 | PN ---
Progress Note (short form) - Note Progress Note: ID Vancomycin and Zosyn Scheduled for debridement today Selected Entries 12/13/16 06:00 Temperature 98.5 F Pulse Rate 76 Respiratory 20 Rate Blood Pressure 93/49 Microbiology 12/11/16 21:14 Urine - Urine - Catheterized Urine Culture - Preliminary Lactose Fermenting Neg Bacilli 12/11/16 20:32 Blood - Peripheral Venous Blood Culture - Preliminary NO GROWTH OBTAINED AFTER 24 HOURS, INCUBATION TO CONTINUE FOR 4 DAYS. 12/11/16 20:32 Blood - Peripheral Venous Blood Culture - Preliminary NO GROWTH OBTAINED AFTER 24 HOURS, INCUBATION TO CONTINUE FOR 4 DAYS. Assessment Wound needs debridement for today Plan Continue antibiotic for now/ Surgery today Justen KENNEY
--- NOTE | 2016-12-13 13:25 | PN ---
Progress Note, Physician Chief Complaint: Ms Vázquez complains of pain in her back. She also says she is nervous about the surgery and upset that PT came prior to surgery. She was encouraged to continue with PT. She denies cp, sob, n/v. - Current Medication List Current Medications: Active Medications Acetaminophen (Tylenol -) 650 mg PO Q4H PRN PRN Reason: FEVER OR PAIN Last Admin: 12/12/16 19:18 Dose: 650 mg Atorvastatin Calcium (Lipitor -) 20 mg PO HS [facility] Last Admin: 12/12/16 22:11 Dose: 20 mg Collagenase (Santyl -) 1 applic TP DAILY [facility] Last Admin: 12/13/16 10:29 Dose: 1 applic Docusate Sodium (Colace -) 100 mg PO BID [facility] Last Admin: 12/13/16 10:27 Dose: Not Given Glipizide (Glucotrol -) 5 mg PO AM [facility] Last Admin: 12/13/16 06:25 Dose: Not Given Vancomycin HCl 1,250 mg/ (Dextrose) 250 mls @ 250 mls/hr IVPB BID@0400,1600 [facility] PRN Reason: Protocol Last Admin: 12/13/16 03:03 Dose: 250 mls/hr Dextrose/Sodium Chloride (D5-1/2ns -) 1,000 mls @ 50 mls/hr IV ASDIR [facility] Last Admin: 12/13/16 00:12 Dose: 50 mls/hr Levothyroxine Sodium (Synthroid -) 75 mcg PO AM [facility] Last Admin: 12/13/16 06:25 Dose: Not Given Losartan Potassium (Cozaar -) 50 mg PO DAILY [facility] Last Admin: 12/13/16 10:28 Dose: 50 mg Magnesium Oxide (Mag-Ox -) 400 mg PO BID [facility] Last Admin: 12/13/16 10:27 Dose: 400 mg Metformin HCl (Glucophage Xr -) 500 mg PO BIDI [facility] Last Admin: 12/13/16 06:25 Dose: Not Given Oxycodone HCl (Roxicodone -) 5 mg PO Q4H PRN PRN Reason: PAIN Pantoprazole Sodium (Protonix -) 40 mg PO BID [facility] Last Admin: 12/13/16 10:27 Dose: 40 mg Piperacillin Sod/Tazobactam Sod (Zosyn 4.5gm Ivpb (Pre-Docked)) 4.5 gm IVPB Q8H -IV [facility] Last Admin: 12/13/16 10:26 Dose: 4.5 gm Polyethylene Glycol (Miralax (For Daily Use) -) 17 gm PO DAILY [facility] Last Admin: 12/13/16 10:29 Dose: Not Given Potassium Chloride (K-Dur -) 20 meq PO DAILY [facility] Last Admin: 12/13/16 10:27 Dose: 20 meq Sodium Chloride (Normal Saline -) 250 ml IV Q20M PRN PRN Reason: MAP<65mm Hg OR SBP <90 Torsemide (Demadex -) 20 mg PO DAILY [facility] Last Admin: 12/13/16 10:27 Dose: 20 mg - Objective Vital Signs: Vital Signs Temperature 98.3 F 12/13/16 10:00 Pulse Rate 82 12/13/16 10:00 Respiratory Rate 12/13/16 10:00 Blood Pressure 115/56 12/13/16 10:00 O2 Sat by Pulse Oximetry (%) 95 12/12/16 21:00 Constitutional: Yes: No Distress, Calm, Obese Cardiovascular: Yes: Regular Rate and Rhythm. No: Gallop, Murmur, Rub Respiratory: Yes: Regular, CTA Bilaterally. No: Rales, Rhonchi, Wheezes Gastrointestinal: Yes: Normal Bowel Sounds, Soft. No: Distention, Tenderness Extremities: Yes: WNL Edema: No Labs: CBC, BMP 12/13/16 06:00 12/13/16 06:00 INR, PTT INR 1.18 (0.82-1.09) H 12/11/16 20:32 Problem List - Problems (1) Buttock wound Code(s): S31.809A - UNSPECIFIED OPEN WOUND OF UNSPECIFIED BUTTOCK, INIT ENCNTR Qualifiers: Encounter type: initial encounter Laterality: right Qualified Code( s): S31.819A - Unspecified open wound of right buttock, initial encounter (2) Anemia Code(s): D64.9 - ANEMIA, UNSPECIFIED Qualifiers: Anemia type: unspecified type Qualified Code(s): D64.9 - Anemia, unspecified (3) Morbid obesity Code(s): E66.01 - MORBID (SEVERE) OBESITY DUE TO EXCESS CALORIES Qualifiers: Obesity type: due to excess calories Qualified Code(s): E66.01 - Morbid (severe) obesity due to excess calories (4) Benign hypertension Code(s): I10 - ESSENTIAL (PRIMARY) HYPERTENSION (5) HLD (hyperlipidemia) Code(s): E78.5 - HYPERLIPIDEMIA, UNSPECIFIED (6) Hypothyroid Code(s): E03.9 - HYPOTHYROIDISM, UNSPECIFIED (7) Diabetes Code(s): E11.9 - TYPE 2 DIABETES MELLITUS WITHOUT COMPLICATIONS Qualifiers: Diabetes mellitus type: type 2 Diabetes mellitus complication status: with skin complications Diabetes mellitus complication detail: with foot ulcer Diabetes mellitus parts counterman insulin use: with snf use Qualified Code(s): E11.621 - Type 2 diabetes mellitus with foot ulcer; L97.509 - Non-pressure chronic ulcer of other part of unspecified foot with unspecified severity; Z79.4 - senior care (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 of insulin (8) UTI (urinary tract infection) Code(s): N39.0 - URINARY TRACT INFECTION, SITE NOT SPECIFIED Qualifiers: Urinary tract infection type: acute cystitis Hematuria presence: without hematuria Qualified Code(s): N30.00 - Acute cystitis without hematuria Assessment/Plan (1) Buttock wound Assessment/Plan: -appreciate ID assistance -continue vancomycin and zosyn day 2 -planning for debridement today -medically optimized and seen by cardiology Code(s): S31.809A - UNSPECIFIED OPEN WOUND OF UNSPECIFIED BUTTOCK, INIT ENCNTR Qualifiers: Encounter type: initial encounter Laterality: right Qualified Code( s): S31.819A - Unspecified open wound of right buttock, initial encounter (2) Anemia Assessment/Plan: -appreciate GI assistance -will need EGD and colonoscopy -s/p blood transfusion -stable Code(s): D64.9 - ANEMIA, UNSPECIFIED Qualifiers: Anemia type: unspecified type Qualified Code(s): D64.9 - Anemia, unspecified (3) Morbid obesity Assessment/Plan: -will need outpatient weight loss plan -complicated by lack of movement Code(s): E66.01 - MORBID (SEVERE) OBESITY DUE TO EXCESS CALORIES Qualifiers: Obesity type: due to excess calories Qualified Code(s): E66.01 - Morbid (severe) obesity due to excess calories (4) Benign hypertension Assessment/Plan: -continue cozaar and demadex -well controlled Code(s): I10 - ESSENTIAL (PRIMARY) HYPERTENSION (5) HLD (hyperlipidemia) Assessment/Plan: -continue lipitor Code(s): E78.5 - HYPERLIPIDEMIA, UNSPECIFIED (6) Hypothyroid Assessment/Plan: -continue synthroid Code(s): E03.9 - HYPOTHYROIDISM, UNSPECIFIED (7) Diabetes Assessment/Plan: -continue glipizide and metformin Code(s): E11.9 - TYPE 2 DIABETES MELLITUS WITHOUT COMPLICATIONS Qualifiers: Diabetes mellitus type: type 2 Diabetes mellitus complication status: with skin complications Diabetes mellitus complication detail: with foot ulcer Diabetes mellitus parts counterman insulin use: with parts counterman use Qualified Code(s): E11.621 - Type 2 diabetes mellitus with foot ulcer; L97.509 - Non-pressure chronic ulcer of other part of unspecified foot with unspecified severity; Z79.4 - senior care (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 of insulin (8) UTI -urine cultures positive -ID following -on vancomycin and zosyn day 2
[2016-12-13] MEDS ORDERED: PROMETHAZINE HCL 25 MG/1 ML VIAL IVPUSH PRN ×2 (16:57→18:05)
[2016-12-13] MEDS ORDERED: ONDANSETRON 4 MG/2 ML VIAL IVPUSH PRN ×2 (16:57→18:05)
[2016-12-13] MEDS ORDERED: LACTATED RINGERS SOLUTION 1,000 ML IV SCH ×2 (17:00→18:05)
[2016-12-13] MEDS ORDERED: PROPOFOL 20 ML ONE ×2 (17:08→17:12)
[2016-12-13] MEDS ORDERED: MIDAZOLAM HCL 2 MG/2 ML SINGLE DOSE VIAL ONE (17:09)
[2016-12-13] MEDS ORDERED: LIDOCAINE HCL 1%, 10 MG/ML (20ML VIAL) IJ ONE (17:15)
[2016-12-13] MEDS ORDERED: BACITRACIN 50,000 UNITS VIAL TP ONE (17:22)
--- NOTE | 2016-12-13 17:42 | OP ---
Operative Note - Note: Operative Date: 12/13/16 Pre-Operative Diagnosis: Right buttock abscess Operation: Excisional debridement skin, subcutanous tissue right buttock, I&D of right buttock abscess. Findings: cutures of wound taken Post-Operative Diagnosis: Same as Pre-op Surgeon: Byron Messer Anesthesia: Fractional Estimated Blood Loss (mls): 40 Operative Report Dictated: Yes
[2016-12-13] MEDS ORDERED: SODIUM CHLORIDE 0.9% 1000 ML INFUS.BAG IV PRN (18:05)
[2016-12-13] MEDS ORDERED: ONDANSETRON 4 MG/2 ML VIAL ONE (18:33)
[2016-12-13] MEDS ORDERED: PROMETHAZINE HCL 25 MG/1 ML VIAL ONE (19:00)
[2016-12-13] MEDS: DEXTROSE 5%-0.45% SALINE 1,000 ML IV SCH (22:40)
[2016-12-13] MEDS: ATORVASTATIN CA 20 MG TABLET (FP) PO SCH (22:41)
[2016-12-13] MEDS: ACETAMINOPHEN 325 MG TABLET (FP) PO PRN (23:04)
[2016-12-13] MEDS: oxyCODONE HCL 5 MG TABLET PO PRN (23:05)
[2016-12-14] MEDS: PIPERACILLIN/TAZOB 4.5 GM/100 ML PRE-DOCKED IVPB SCH ×4 (00:30→17:18)
[2016-12-14] MEDS: DEXTROSE 5%-0.45% SALINE 1,000 ML IV SCH (01:36)
[2016-12-14] MEDS ORDERED: VANCOMYCIN 1,250 MG in DEXTROSE 5%-WATER - 250 ML IVPB SCH (04:00)
[2016-12-14] MEDS: glipiZIDE 5 MG TABLET (FP) PO SCH (06:16)
[2016-12-14] MEDS: LEVOTHYROXINE NA 75 MCG TABLET (FP) PO SCH (06:16)
[2016-12-14 08:15] LABS: BASOPHIL 0.4 % (0-2.0); EOSINOPHIL 6.7 % (0-4.5); MCH 25.4 pg (25.7-33.7); MCHC 30.5 g/dl (32.0-36.0); MEAN CELL VOLUME 83.4 fl (80-96); MEAN PLT VOLUME 7.8 fl (7.5-11.1); NEUTROPHILS 79.7 % (42.8-82.8); PLATELET COUNT 377 K/MM3 (134-434); RDW 19.7 % (11.6-15.6); WHITE BLOOD COUNT 12.8 K/mm3 (4.0-10.0)
[2016-12-14 08:45] LABS: ANION GAP 8 (8-16); CALCIUM 7.8 mg/dL (8.5-10.1); CO2 32 mmol/L (21-32); CREATININE 1.2 mg/dL (0.55-1.02); GLUCOSE,RANDOM 170 mg/dL (74-106); MAGNESIUM 2.4 mg/dL (1.8-2.4); PHOSPHOROUS 5.1 mg/dL (2.5-4.9)
--- NOTE | 2016-12-14 09:30 | PN ---
Progress Note (short form) - Note Progress Note: POD #1 - s/p right sacral decubitus debridement under MAC. Pt. doing well, resting comfortably in bed. VSS. No apparent anesthetic complications noted. Continue current care.
[2016-12-14] MEDS ORDERED: PT OWN MED DRAWER 7, Y5N ONE (10:36)
[2016-12-14] MEDS: PANTOPRAZOLE 40 MG TABLET (FP) PO SCH ×2 (11:24→21:53)
[2016-12-14] MEDS: MAGNESIUM OXIDE 400 MG TABLET (FP) PO SCH ×2 (11:24→21:54)
[2016-12-14] MEDS: POTASSIUM CHLORIDE TABS 20 MEQ TABLET.ER (FP) PO SCH (11:24)
[2016-12-14] MEDS: DOCUSATE SODIUM 100 MG CAPSULE (FP) PO SCH ×2 (11:24→21:54)
[2016-12-14] MEDS: TORSEMIDE 20 MG TABLET (FP) PO SCH (11:25)
[2016-12-14] MEDS: LOSARTAN POTASSIUM 50 MG TABLET (FP) PO SCH (11:25)
[2016-12-14] MEDS: POLYETHYLENE GLYCOL 3350 119 GM BTL PO SCH (11:26)
[2016-12-14] MEDS: COLLAGENASE CLOSTRIDIUM HIST. 30 GRAMS TUBE TP SCH (11:26)
--- NOTE | 2016-12-14 11:35 | PN ---
Progress Note (short form) - Note Progress Note: s: no cp sob palps dizzy o: Vital Signs Period Temp Pulse Resp BP Sys/Donohue Pulse Ox Last 24 Hr 97.6 F-98.8 F 76-95 15-22 76-115/32-74 95-98 calm, nad no icterus/xanthelasma no JVD (extremely obese neck) RRR, decr intensity (habitus), no murmur/gallop; PMI not palpable abdomen very obese, nontender; not distended + normal BS mild nonpitting edema bilat pretib, no cyanosis A and O x3, normal affect not agitated no jaundice diaphoresis Current Medications Generic Name Dose Route Start Last Admin Trade Name Freq PRN Reason Stop Dose Admin Acetaminophen 650 mg 12/13/16 18:05 12/13/16 23:04 Tylenol - PO 650 mg Q4H PRN Administration FEVER OR PAIN Atorvastatin Calcium 20 mg 12/13/16 22:00 12/13/16 22:41 Lipitor - PO 20 mg HS [facility] Administration Collagenase 1 applic 12/14/16 10:00 12/14/16 11:26 Santyl - TP Not Given DAILY [facility] Docusate Sodium 100 mg 12/13/16 22:00 12/14/16 11:24 Colace - PO 100 mg BID [facility] Administration Glipizide 5 mg 12/14/16 07:00 12/14/16 06:16 Glucotrol - PO 5 mg AM [facility] Administration Dextrose/Sodium Chloride 1,000 mls @ 50 mls/hr 12/13/16 18:05 12/14/16 01:36 D5-1/2ns - IV 50 mls/hr ASDIR [facility] Administration Vancomycin HCl 1,250 mg/ 250 mls @ 166.667 mls/hr 12/13/16 22:00 12/13/16 22:44 Dextrose IVPB 166.667 mls/hr BID [facility] Administration Protocol Levothyroxine Sodium 75 mcg 12/14/16 07:00 12/14/16 06:16 Synthroid - PO 75 mcg AM [facility] Administration Losartan Potassium 50 mg 12/14/16 10:00 12/14/16 11:25 Cozaar - PO Not Given DAILY [facility] Magnesium Oxide 400 mg 12/13/16 22:00 12/14/16 11:24 Mag-Ox - PO 400 mg BID [facility] Administration Metformin HCl 500 mg 12/14/16 07:00 12/14/16 06:16 Glucophage Xr - PO 500 mg BIDI [facility] Administration Oxycodone HCl 5 mg 12/13/16 18:05 12/13/16 23:05 Roxicodone - PO 5 mg Q4H PRN Administration PAIN Pantoprazole Sodium 40 mg 12/13/16 22:00 12/14/16 11:24 Protonix - PO 40 mg BID [facility] Administration Piperacillin Sod/Tazobactam Sod 4.5 gm 12/14/16 02:00 12/14/16 11:26 Zosyn 4.5gm Ivpb (Pre-Docked) IVPB 4.5 gm Q8H-IV [facility] Administration Polyethylene Glycol 17 gm 12/14/16 10:00 12/14/16 11:26 Miralax (For Daily Use) - PO 17 grams DAILY [facility] Administration Potassium Chloride 20 meq 12/14/16 10:00 12/14/16 11:24 K-Dur - PO 20 meq DAILY [facility] Administration Sodium Chloride 250 ml 12/13/16 18:05 Normal Saline - IV Q20M PRN MAP<65mm Hg OR SBP <90 Torsemide 20 mg 12/14/16 10:00 12/14/16 11:25 Demadex - PO 20 mg DAILY [facility] Administration CBC, BMP 12/14/16 06:00 12/14/16 06:00 ecg 12/12/16: sr, nl intervals, no ischemic changes cxr: no sig chf stress MPI 06/08: no ischemic EKG changes. nl perfusion. EF 45%, global. Echo 02/2016: suboptimal. grossly nl lv size. Mild-mod LV dysfunction. RV not well seen. Mild ARLYN. Mod TR. RVSP 40-50. Small effusion < 1 cm. echo 10/2016: tds; low nl lvef, nl rv, mild lae, mod tr, rvsp 40-50 a/p: pre-operative eval: - RCRI = 2, unknown functional status (probably reduced) - no signs/sx of active ischemic heart dz or decomp chf - no ischemia on recent nuclear stress test, recent echo w/o severe abnormalities - she has acceptable (intermediate) risk of periop CV complications and may proceed without further cardiac testing for the planned foc/egd. systolic dysfunction, chronic mixed syst/diast chf: - episode chf 06/08, EF mildly reduced then, diuresed in hospital - cont cozaar - on torsemide 20 at home, cont same HTN - bp controlled on cozaar anemia: - hgb in 6s on admit, s/p prbcs now with improvement in hgb - planned for egd/foc here HLD - con't statin buttuck ulcer: -on abx per ID -had debridement 12/13/16
[2016-12-14] MEDS: oxyCODONE HCL 5 MG TABLET PO PRN ×3 (12:57→22:03)
[2016-12-14] MEDS: VANCOMYCIN 1,250 MG in DEXTROSE 5%-WATER - 250 ML IVPB SCH (12:57)
--- NOTE | 2016-12-14 13:36 | PN ---
Progress Note, Physician Chief Complaint: ID S/P debridement of decubitus right buttock abscess - Current Medication List Current Medications: Active Medications Acetaminophen (Tylenol -) 650 mg PO Q4H PRN PRN Reason: FEVER OR PAIN Last Admin: 12/13/16 23:04 Dose: 650 mg Atorvastatin Calcium (Lipitor -) 20 mg PO HS [facility] Last Admin: 12/13/16 22:41 Dose: 20 mg Collagenase (Santyl -) 1 applic TP DAILY [facility] Last Admin: 12/14/16 11:26 Dose: Not Given Docusate Sodium (Colace -) 100 mg PO BID [facility] Last Admin: 12/14/16 11:24 Dose: 100 mg Glipizide (Glucotrol -) 5 mg PO AM [facility] Last Admin: 12/14/16 06:16 Dose: 5 mg Dextrose/Sodium Chloride (D5-1/2ns -) 1,000 mls @ 50 mls/hr IV ASDIR [facility] Last Admin: 12/14/16 01:36 Dose: 50 mls/hr Vancomycin HCl 1,250 mg/ (Dextrose) 250 mls @ 166.667 mls/hr IVPB BID [facility] PRN Reason: Protocol Last Admin: 12/14/16 12:57 Dose: 166.667 mls/hr Levothyroxine Sodium (Synthroid -) 75 mcg PO AM [facility] Last Admin: 12/14/16 06:16 Dose: 75 mcg Losartan Potassium (Cozaar -) 50 mg PO DAILY [facility] Last Admin: 12/14/16 11:25 Dose: Not Given Magnesium Oxide (Mag-Ox -) 400 mg PO BID [facility] Last Admin: 12/14/16 11:24 Dose: 400 mg Metformin HCl (Glucophage Xr -) 500 mg PO BIDI [facility] Last Admin: 12/14/16 06:16 Dose: 500 mg Oxycodone HCl (Roxicodone -) 5 mg PO Q4H PRN PRN Reason: PAIN Last Admin: 12/14/16 12:57 Dose: 5 mg Pantoprazole Sodium (Protonix -) 40 mg PO BID [facility] Last Admin: 12/14/16 11:24 Dose: 40 mg Piperacillin Sod/Tazobactam Sod (Zosyn 4.5gm Ivpb (Pre-Docked)) 4.5 gm IVPB Q8H -IV [facility] Last Admin: 12/14/16 11:26 Dose: 4.5 gm Polyethylene Glycol (Miralax (For Daily Use) -) 17 gm PO DAILY [facility] Last Admin: 12/14/16 11:26 Dose: 17 grams Potassium Chloride (K-Dur -) 20 meq PO DAILY [facility] Last Admin: 12/14/16 11:24 Dose: 20 meq Sodium Chloride (Normal Saline -) 250 ml IV Q20M PRN PRN Reason: MAP<65mm Hg OR SBP <90 Torsemide (Demadex -) 20 mg PO DAILY [facility] Last Admin: 12/14/16 11:25 Dose: 20 mg - Objective Vital Signs: Vital Signs Temperature 98.5 F 12/14/16 05:56 Pulse Rate 88 12/14/16 05:56 Respiratory Rate 20 12/14/16 05:56 Blood Pressure 101/49 12/14/16 05:56 O2 Sat by Pulse Oximetry (%) 95 12/13/16 21:00 Labs: CBC, BMP 12/14/16 06:00 12/14/16 06:00 INR, PTT INR 1.18 (0.82-1.09) H 12/11/16 20:32 Problem List - Problems (1) Buttock wound Code(s): S31.809A - UNSPECIFIED OPEN WOUND OF UNSPECIFIED BUTTOCK, INIT ENCNTR Qualifiers: Encounter type: initial encounter Laterality: right Qualified Code( s): S31.819A - Unspecified open wound of right buttock, initial encounter (2) DM Diabetes mellitus Code(s): E11.9 - TYPE 2 DIABETES MELLITUS WITHOUT COMPLICATIONS (3) Morbid obesity Code(s): E66.01 - MORBID (SEVERE) OBESITY DUE TO EXCESS CALORIES Qualifiers: Obesity type: due to excess calories Qualified Code(s): E66.01 - Morbid (severe) obesity due to excess calories Assessment/Plan Microbiology 12/11/16 21:14 Urine - Urine - Catheterized Urine Culture - Final Escherichia Coli 12/11/16 20:32 Buttock - Right Gram Stain - Final 12/11/16 20:32 Buttock - Right Wound Culture - Preliminary Escherichia Coli Proteus Mirabilis Group D Strep Or Entero Coccus 12/11/16 20:32 Blood - Peripheral Venous Blood Culture - Preliminary NO GROWTH OBTAINED AFTER 48 HOURS, INCUBATION TO CONTINUE FOR 3 DAYS. 12/11/16 20:32 Blood - Peripheral Venous Blood Culture - Preliminary NO GROWTH OBTAINED AFTER 48 HOURS, INCUBATION TO CONTINUE FOR 3 DAYS. Laboratory Tests 12/14/16 12/14/16 06:00 06:00 WBC 12.8 H Hgb 8.2 L Hct 26.8 L Plt Count 377 BUN 24 H Creatinine 1.2 H D Assessment Infected buttock wound post debridement Plan Continue Zosyn Stop Vancomycin Hopeful switch to po soon pending final wound c/s Justen KENNEY
[2016-12-14] MEDS: ACETAMINOPHEN 325 MG TABLET (FP) PO PRN (15:10)
--- NOTE | 2016-12-14 15:37 | PN ---
Progress Note, Physician Chief Complaint: Ms Vázquez complains of pain at her surgical site. Denies cp, sob, n/v. Says she has a good appetite. - Current Medication List Current Medications: Active Medications Acetaminophen (Tylenol -) 650 mg PO Q4H PRN PRN Reason: FEVER OR PAIN Last Admin: 12/14/16 15:10 Dose: 650 mg Atorvastatin Calcium (Lipitor -) 20 mg PO HS [facility] Last Admin: 12/13/16 22:41 Dose: 20 mg Collagenase (Santyl -) 1 applic TP DAILY [facility] Last Admin: 12/14/16 11:26 Dose: Not Given Docusate Sodium (Colace -) 100 mg PO BID [facility] Last Admin: 12/14/16 11:24 Dose: Not Given Glipizide (Glucotrol -) 5 mg PO AM [facility] Last Admin: 12/14/16 06:16 Dose: 5 mg Levothyroxine Sodium (Synthroid -) 75 mcg PO AM [facility] Last Admin: 12/14/16 06:16 Dose: 75 mcg Losartan Potassium (Cozaar -) 50 mg PO DAILY [facility] Last Admin: 12/14/16 11:25 Dose: Not Given Magnesium Oxide (Mag-Ox -) 400 mg PO BID [facility] Last Admin: 12/14/16 11:24 Dose: 400 mg Metformin HCl (Glucophage Xr -) 500 mg PO BIDI [facility] Last Admin: 12/14/16 06:16 Dose: 500 mg Oxycodone HCl (Roxicodone -) 5 mg PO Q4H PRN PRN Reason: PAIN Last Admin: 12/14/16 12:57 Dose: 5 mg Pantoprazole Sodium (Protonix -) 40 mg PO BID [facility] Last Admin: 12/14/16 11:24 Dose: 40 mg Piperacillin Sod/Tazobactam Sod (Zosyn 4.5gm Ivpb (Pre-Docked)) 4.5 gm IVPB Q8H -IV [facility] Last Admin: 12/14/16 11:26 Dose: 4.5 gm Polyethylene Glycol (Miralax (For Daily Use) -) 17 gm PO DAILY [facility] Last Admin: 12/14/16 11:26 Dose: Not Given Potassium Chloride (K-Dur -) 20 meq PO DAILY [facility] Last Admin: 12/14/16 11:24 Dose: 20 meq Sodium Chloride (Normal Saline -) 250 ml IV Q20M PRN PRN Reason: MAP<65mm Hg OR SBP <90 Torsemide (Demadex -) 20 mg PO DAILY [facility] Last Admin: 12/14/16 11:25 Dose: 20 mg - Objective Vital Signs: Vital Signs Temperature 98.6 F 12/14/16 14:07 Pulse Rate 80 12/14/16 14:07 Respiratory Rate 20 12/14/16 14:07 Blood Pressure 111/50 12/14/16 14:07 O2 Sat by Pulse Oximetry (%) 95 12/13/16 21:00 Constitutional: Yes: No Distress, Calm, Obese Cardiovascular: Yes: Regular Rate and Rhythm. No: Gallop, Murmur, Rub Respiratory: Yes: Regular, CTA Bilaterally. No: Rales, Rhonchi, Wheezes Gastrointestinal: Yes: Normal Bowel Sounds, Soft. No: Distention, Tenderness Extremities: Yes: WNL Edema: Yes Edema: LLE: 1+, RLE: 1+ Labs: CBC, BMP 12/14/16 06:00 12/14/16 06:00 INR, PTT INR 1.18 (0.82-1.09) H 12/11/16 20:32 Problem List - Problems (1) Buttock wound Code(s): S31.809A - UNSPECIFIED OPEN WOUND OF UNSPECIFIED BUTTOCK, INIT ENCNTR Qualifiers: Encounter type: initial encounter Laterality: right Qualified Code( s): S31.819A - Unspecified open wound of right buttock, initial encounter (2) Anemia Code(s): D64.9 - ANEMIA, UNSPECIFIED Qualifiers: Anemia type: unspecified type Qualified Code(s): D64.9 - Anemia, unspecified (3) Morbid obesity Code(s): E66.01 - MORBID (SEVERE) OBESITY DUE TO EXCESS CALORIES Qualifiers: Obesity type: due to excess calories Qualified Code(s): E66.01 - Morbid (severe) obesity due to excess calories (4) Benign hypertension Code(s): I10 - ESSENTIAL (PRIMARY) HYPERTENSION (5) HLD (hyperlipidemia) Code(s): E78.5 - HYPERLIPIDEMIA, UNSPECIFIED (6) Hypothyroid Code(s): E03.9 - HYPOTHYROIDISM, UNSPECIFIED (7) Diabetes Code(s): E11.9 - TYPE 2 DIABETES MELLITUS WITHOUT COMPLICATIONS Qualifiers: Diabetes mellitus type: type 2 Diabetes mellitus complication status: with skin complications Diabetes mellitus complication detail: with foot ulcer Diabetes mellitus assisted insulin use: with oil heaterman use Qualified Code(s): E11.621 - Type 2 diabetes mellitus with foot ulcer; L97.509 - Non-pressure chronic ulcer of other part of unspecified foot with unspecified severity; Z79.4 - [facility] (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 of insulin (8) UTI (urinary tract infection) Code(s): N39.0 - URINARY TRACT INFECTION, SITE NOT SPECIFIED Qualifiers: Urinary tract infection type: acute cystitis Hematuria presence: without hematuria Qualified Code(s): N30.00 - Acute cystitis without hematuria Assessment/Plan (1) Buttock wound Assessment/Plan: -appreciate ID assistance -continue zosyn day 3 -s/p I&D -wound cultures reviews Code(s): S31.809A - UNSPECIFIED OPEN WOUND OF UNSPECIFIED BUTTOCK, INIT ENCNTR Qualifiers: Encounter type: initial encounter Laterality: right Qualified Code( s): S31.819A - Unspecified open wound of right buttock, initial encounter (2) Anemia Assessment/Plan: -appreciate GI assistance -will need EGD and colonoscopy -s/p blood transfusion -stable Code(s): D64.9 - ANEMIA, UNSPECIFIED Qualifiers: Anemia type: unspecified type Qualified Code(s): D64.9 - Anemia, unspecified (3) Morbid obesity Assessment/Plan: -will need outpatient weight loss plan -complicated by lack of movement Code(s): E66.01 - MORBID (SEVERE) OBESITY DUE TO EXCESS CALORIES Qualifiers: Obesity type: due to excess calories Qualified Code(s): E66.01 - Morbid (severe) obesity due to excess calories (4) Benign hypertension Assessment/Plan: -continue cozaar and demadex -well controlled Code(s): I10 - ESSENTIAL (PRIMARY) HYPERTENSION (5) HLD (hyperlipidemia) Assessment/Plan: -continue lipitor Code(s): E78.5 - HYPERLIPIDEMIA, UNSPECIFIED (6) Hypothyroid Assessment/Plan: -continue synthroid Code(s): E03.9 - HYPOTHYROIDISM, UNSPECIFIED (7) Diabetes Assessment/Plan: -continue glipizide and metformin Code(s): E11.9 - TYPE 2 DIABETES MELLITUS WITHOUT COMPLICATIONS Qualifiers: Diabetes mellitus type: type 2 Diabetes mellitus complication status: with skin complications Diabetes mellitus complication detail: with foot ulcer Diabetes mellitus assisted insulin use: with oil heaterman use Qualified Code(s): E11.621 - Type 2 diabetes mellitus with foot ulcer; L97.509 - Non-pressure chronic ulcer of other part of unspecified foot with unspecified severity; Z79.4 - termite treater (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 coli -ID following -on zosyn day 3
[2016-12-14] MEDS: ATORVASTATIN CA 20 MG TABLET (FP) PO SCH (21:53)
[2016-12-15] MEDS: PIPERACILLIN/TAZOB 4.5 GM/100 ML PRE-DOCKED IVPB SCH ×3 (02:15→18:33)
[2016-12-15] MEDS: glipiZIDE 5 MG TABLET (FP) PO SCH (06:18)
[2016-12-15] MEDS: LEVOTHYROXINE NA 75 MCG TABLET (FP) PO SCH (06:18)
[2016-12-15] MEDS: oxyCODONE HCL 5 MG TABLET PO PRN ×4 (06:28→21:08)
[2016-12-15 07:26] LABS: BASOPHIL 0.1 % (0-2.0); MCHC 31.3 g/dl (32.0-36.0); MEAN CELL VOLUME 83.1 fl (80-96); MEAN PLT VOLUME 7.8 fl (7.5-11.1); NEUTROPHILS 77.3 % (42.8-82.8); PLATELET COUNT 334 K/MM3 (134-434); RDW 19.4 % (11.6-15.6); WHITE BLOOD COUNT 9.8 K/mm3 (4.0-10.0)
[2016-12-15 08:21] LABS: ANION GAP 8 (8-16); CALCIUM 7.6 mg/dL (8.5-10.1); CO2 30 mmol/L (21-32); CREATININE 1.2 mg/dL (0.55-1.02); GLUCOSE,RANDOM 109 mg/dL (74-106); MAGNESIUM 2.2 mg/dL (1.8-2.4); PHOSPHOROUS 3.6 mg/dL (2.5-4.9)
[2016-12-15] MEDS: LOSARTAN POTASSIUM 50 MG TABLET (FP) PO SCH (10:17)
[2016-12-15] MEDS: DOCUSATE SODIUM 100 MG CAPSULE (FP) PO SCH ×2 (10:26→21:07)
[2016-12-15] MEDS: TORSEMIDE 20 MG TABLET (FP) PO SCH (10:26)
[2016-12-15] MEDS: POTASSIUM CHLORIDE TABS 20 MEQ TABLET.ER (FP) PO SCH (10:27)
[2016-12-15] MEDS: MAGNESIUM OXIDE 400 MG TABLET (FP) PO SCH ×2 (10:28→21:07)
[2016-12-15] MEDS: PANTOPRAZOLE 40 MG TABLET (FP) PO SCH ×2 (10:28→21:07)
[2016-12-15] MEDS: POLYETHYLENE GLYCOL 3350 119 GM BTL PO SCH (10:28)
[2016-12-15] MEDS: COLLAGENASE CLOSTRIDIUM HIST. 30 GRAMS TUBE TP SCH (10:29)
--- NOTE | 2016-12-15 16:05 | PN ---
Physical Exam: SUBJECTIVE: Patient seen and examined at bedside. No new events overnight OBJECTIVE: Vital Signs Period Temp Pulse Resp BP Sys/Donohue Pulse Ox Last 24 Hr 98.4 F-98.8 F 79-88 18-20 96-104/40-46 91-93 GENERAL: The patient is awake, alert, and fully oriented, in no acute distress. HEAD: Normal with no signs of trauma. NECK: Trachea midline, full range of motion, supple. LUNGS: Breath sounds equal, clear to auscultation bilaterally, no wheezes, no crackles, no accessory muscle use. HEART: Regular rate and rhythm, S1, S2 without murmur, rub or gallop. ABDOMEN:Large obese Soft, nontender, nondistended, normoactive bowel sounds, no guarding, no rebound, no hepatosplenomegaly, no masses. EXTREMITIES: 2+ pulses, warm, well-perfused, no edema. NEUROLOGICAL: Cranial nerves II through XII grossly intact. Normal speech, gait not observed. PSYCH: Normal mood, normal affect. SKIN: Warm, dry, normal turgor, no rashes or lesions noted, Sacral wound debridment dressing intact Laboratory Results - last 24 hr 12/14/16 12/15/16 12/15/16 17:17 06:00 06:00 WBC 9.8 RBC 3.14 L Hgb 8.2 L Hct 26.1 L MCV 83.1 MCHC 31.3 L RDW 19.4 H Plt Count 334 MPV 7.8 Neutrophils % 77.3 Lymphocytes % 11.5 D Monocytes % 4.1 Eosinophils % 7.0 H Basophils % 0.1 Sodium 138 Potassium 4.6 Chloride 100 Carbon Dioxide 30 Anion Gap 8 BUN 25 H Creatinine 1.2 H POC Glucometer 198 Random Glucose 109 H D Calcium 7.6 L Phosphorus 3.6 D Magnesium 2.2 12/15/16 06:17 WBC RBC Hgb Hct MCV MCHC RDW Plt Count MPV Neutrophils % Lymphocytes % Monocytes % Eosinophils % Basophils % Sodium Potassium Chloride Carbon Dioxide Anion Gap BUN Creatinine POC Glucometer 147 Random Glucose Calcium Phosphorus Magnesium Active Medications Generic Name Dose Route Start Last Admin Trade Name Freq PRN Reason Stop Dose Admin Acetaminophen 650 mg 12/13/16 18:05 12/14/16 15:10 Tylenol - PO 650 mg Q4H PRN Administration FEVER OR PAIN Atorvastatin Calcium 20 mg 12/13/16 22:00 12/14/16 21:53 Lipitor - PO 20 mg HS LISA Administration Collagenase 1 applic 12/14/16 10:00 12/15/16 10:29 Santyl - TP Not Given DAILY LISA Docusate Sodium 100 mg 12/13/16 22:00 12/15/16 10:26 Colace - PO Not Given BID LISA Glipizide 5 mg 12/14/16 07:00 12/15/16 06:18 Glucotrol - PO 5 mg AM LISA Administration Levothyroxine Sodium 75 mcg 12/14/16 07:00 12/15/16 06:18 Synthroid - PO 75 mcg AM LISA Administration Losartan Potassium 25 mg 12/16/16 10:00 Cozaar - PO DAILY LISA Magnesium Oxide 400 mg 12/13/16 22:00 12/15/16 10:28 Mag-Ox - PO 400 mg BID LISA Administration Metformin HCl 500 mg 12/14/16 07:00 12/15/16 06:18 Glucophage Xr - PO 500 mg BIDI LISA Administration Oxycodone HCl 5 mg 12/13/16 18:05 12/15/16 10:38 Roxicodone - PO 5 mg Q4H PRN Administration PAIN Pantoprazole Sodium 40 mg 12/13/16 22:00 12/15/16 10:28 Protonix - PO 40 mg BID LISA Administration Piperacillin Sod/Tazobactam Sod 4.5 gm 12/14/16 02:00 12/15/16 10:24 Zosyn 4.5gm Ivpb (Pre-Docked) IVPB 4.5 gm Q8H-IV LISA Administration Polyethylene Glycol 17 gm 12/14/16 10:00 12/15/16 10:28 Miralax (For Daily Use) - PO Not Given DAILY LISA Potassium Chloride 20 meq 12/14/16 10:00 12/15/16 10:27 K-Dur - PO 20 meq DAILY LISA Administration Sodium Chloride 250 ml 12/13/16 18:05 Normal Saline - IV Q20M PRN MAP<65mm Hg OR SBP <90 Torsemide 20 mg 12/14/16 10:00 12/15/16 10:26 Demadex - PO 20 mg DAILY LISA Administration ASSESSMENT/PLAN: This 71 yr old female who is morbidly obese with recent sacral decubiti from a NH now with s/p flap/debridment, UTI Left leg knee with a few remaining sutures in them from left knee surgery. Will call Dr. Felder service to follow up with pt. Problem List - Problems (1) Buttock wound Assessment/Plan: -daily dressing changes as ordered -+ for ecoli proteus species sensitive for zosyn -continue pt on zosyn -WBC stable. Code(s): S31.809A - UNSPECIFIED OPEN WOUND OF UNSPECIFIED BUTTOCK, INIT ENCNTR Qualifiers: Encounter type: initial encounter Laterality: right Qualified Code( s): S31.819A - Unspecified open wound of right buttock, initial encounter (2) DM Diabetes mellitus Assessment/Plan: -finger sticks with sliding scale coverage Code(s): E11.9 - TYPE 2 DIABETES MELLITUS WITHOUT COMPLICATIONS (3) Morbid obesity Code(s): E66.01 - MORBID (SEVERE) OBESITY DUE TO EXCESS CALORIES Qualifiers: Obesity type: due to excess calories Qualified Code(s): E66.01 - Morbid (severe) obesity due to excess calories (4) Benign hypertension Assessment/Plan: -held cozaar today with low b/p of 98/70 -changed cozaar to 25 mg starting tomorrow with parameters. Code(s): I10 - ESSENTIAL (PRIMARY) HYPERTENSION (5) HTN (hypertension) Code(s): I10 - ESSENTIAL (PRIMARY) HYPERTENSION (6) UTI (urinary tract infection) Assessment/Plan: -sensitive to zosyn will continue Code(s): N39.0 - URINARY TRACT INFECTION, SITE NOT SPECIFIED Qualifiers: Urinary tract infection type: acute cystitis Hematuria presence: without hematuria Qualified Code(s): N30.00 - Acute cystitis without hematuria (7) Venous stasis dermatitis of both lower extremities Assessment/Plan: -notices left lower leg with redness and warmth without any ulcers + edema to bilateral legs -legs elevated -not on any DVT prophalatic currently 2nd to blood loss/anemia/surgery -duplex left leg ordered and will follow -scd boots ordered Code(s): I83.11 - VARICOSE VEINS OF RIGHT LOWER EXTREMITY WITH INFLAMMATION I83.12 - VARICOSE VEINS OF LEFT LOWER EXTREMITY WITH INFLAMMATION (8) Prophylactic measure Assessment/Plan: -on protonix for GI ppx -holding lovenox for now for DVT ppx as pt had anemia, recent surgery Code(s): Z29.9 - ENCOUNTER FOR PROPHYLACTIC MEASURES, UNSPECIFIED Visit type - Emergency Visit Emergency Visit: No - New Patient This patient is new to me today: Yes Date on this admission: 12/15/16 - Critical Care Critical Care patient: No - Discharge Referral Referred to [facility] Med P.C[facility] No
[2016-12-15] MEDS: ACETAMINOPHEN 325 MG TABLET (FP) PO PRN ×2 (16:29→21:08)
[2016-12-15] MEDS: ATORVASTATIN CA 20 MG TABLET (FP) PO SCH (21:08)
[2016-12-16] MEDS: PIPERACILLIN/TAZOB 4.5 GM/100 ML PRE-DOCKED IVPB SCH ×3 (01:09→18:43)
[2016-12-16] MEDS: glipiZIDE 5 MG TABLET (FP) PO SCH (06:00)
[2016-12-16] MEDS: oxyCODONE HCL 5 MG TABLET PO PRN ×3 (06:00→21:57)
[2016-12-16] MEDS: ACETAMINOPHEN 325 MG TABLET (FP) PO PRN ×3 (06:01→21:58)
[2016-12-16] MEDS: LEVOTHYROXINE NA 75 MCG TABLET (FP) PO SCH (06:03)
[2016-12-16 07:58] LABS: INR 1.2 (0.82-1.09); PROTHROMBIN TIME (PATIENT) 13.2 SEC (9.98-11.88)
[2016-12-16 08:06] LABS: BASOPHIL 0.2 % (0-2.0); EOSINOPHIL 6.5 % (0-4.5); MCH 26.1 pg (25.7-33.7); MCHC 31.8 g/dl (32.0-36.0); MEAN CELL VOLUME 82.2 fl (80-96); MEAN PLT VOLUME 7.6 fl (7.5-11.1); NEUTROPHILS 77.1 % (42.8-82.8); PLATELET COUNT 338 K/MM3 (134-434); RDW 19.5 % (11.6-15.6); WHITE BLOOD COUNT 8.1 K/mm3 (4.0-10.0)
[2016-12-16 08:29] LABS: ANION GAP 8 (8-16); CALCIUM 7.7 mg/dL (8.5-10.1); CO2 32 mmol/L (21-32); GLUCOSE,RANDOM 94 mg/dL (74-106)
[2016-12-16 08:33] LABS: ALK PHOS 78 U/L (45-117); BILIRUBIN,TOTAL 0.4 mg/dL (0.2-1.0); SGOT/AST 13 U/L (15-37); SGPT/ALT 15 U/L (12-78); TOT PROT 5.4 g/dl (6.4-8.2)
--- NOTE | 2016-12-16 09:08 | CON.ORTH ---
Consult Reason for Consultation:: suture removal - Past Medical History Cardio/Vascular: Yes: CHF, HTN Pulmonary: Yes: COPD, Sleep Apnea Renal/: Yes: Renal Calculi (s/p lithotripsy) Musculoskeletal: Yes: Chronic low back pain Endocrine: Yes: Diabetes Mellitus, Hypothyroidism, Other (morbid obesity) Additional Medical History: MRSA/Pseudomonas in her left foot ulcer that has healed - Past Surgical History Past Surgical History: Yes: Joint Replacement (left knee (partial replacement)) - Alcohol/Substance Use Hx Alcohol Use: No History of Substance Use: reports: None - Smoking History Smoking history: Former smoker Have you smoked in the past 12 months: No Aproximately how many cigarettes per day: 1 If you are a former smoker, when did you quit?: 1981 - Social History Usual Living Arrangement: Other () ADL: Support Services 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 [Santyl] 1 applic TP DAILY 12/11/16 Docusate Sodium [Colace -] 100 mg PO BID 12/11/16 Enoxaparin [Lovenox -] 40 mg SQ DAILY 12/11/16 Garlic 100 mg PO DAILY 12/11/16 Glipizide 5 mg PO DAILY 12/11/16 Insulin Lispro [Humalog] 0 unit SQ ASDIR 12/11/16 Levothyroxine [Synthroid -] 75 mcg PO DAILY 12/11/16 Losartan Potassium [Cozaar -] 50 mg PO DAILY 12/11/16 Magnesium Oxide 400 mg PO BID 12/11/16 Metformin HCl [Metformin HCl ER] 500 mg PO BID 12/11/16 [place]-3 Fatty Acids/Fish Oil [Fish Oil 1,000 mg Softgel] 1 each PO DAILY Oxycodone HCl 10 mg PO ASDIR 12/11/16 Polyethylene Glycol 3350 [Miralax (For Daily Use) -] 17 gm PO DAILY 12/11/16 Potassium Chloride 20 meq PO DAILY 12/11/16 Simvastatin 40 mg PO DAILY 12/11/16 Torsemide 20 mg PO DAILY 12/11/16 Family Disease History - Family Disease History Family Disease History: Heart Disease: Mother ( 90's: CAD/Dementia), CA: Father ( in late 80's: h/o colon ca), Other: Brother (Alive: HTN/DM II) Other Family History: No children Physical Exam for Ortho Vital Signs: Vital Signs Temperature 98.5 F 12/16/16 05:42 Pulse Rate 84 12/16/16 05:42 Respiratory Rate 20 12/16/16 05:42 Blood Pressure 107/50 12/16/16 05:42 O2 Sat by Pulse Oximetry (%) 96 12/15/16 21:00 Wound/Incision: Yes: Clean/Dry, Well Approximated Labs: CBC, BMP 12/16/16 07:00 12/16/16 07:00 INR, PTT INR 1.20 (0.82-1.09) H 12/16/16 07:00 - Lower Extremity Knee: Yes: Left, Other (well healed incision, mild ttp, rom 0-50, calf soft, nt , nvi) Assessment/Plan 71 year old female, with a significant past medical history of CHF, COPD, anemia, diabetes, cellulitis, obesity, who presents to the emergency department via ems from [facility] for lab variances. Admitted for right buttock abscess. s/ p left revision tkr with distal femur replacement. a/p s/p left distal femur replacement Sutures removed PT for ROM and ambulation will follow d/w Dr. Sorensen
[2016-12-16] MEDS ORDERED: oxyCODONE HCL 5 MG TABLET PO ONE (09:23)
--- NOTE | 2016-12-16 09:30 | PN ---
Physical Exam: Hospitalist covering for Dr. Griggs SUBJECTIVE: Patient seen and examined. Having dark stools. OBJECTIVE: Hospital day #5, POD #3 for this 71 year old female with a history of HTN, HLD, NIDDM, hypothyroidism, anemia, COPD, LUCIUS, morbid obesity, and recent revision of left TKR admitted on 12/11 with fever/sepsis secondary to infected buttock ulcer s/p debridement. Vital Signs Period Temp Pulse Resp BP Sys/Donohue Pulse Ox Last 24 Hr 98.5 F-98.7 F 79-84 20-20 96-115/38-52 96 GENERAL: The patient is awake, alert, and fully oriented, in no acute distress. HEAD: Normal with no signs of trauma. EYES: PERRL, extraocular movements intact, sclera anicteric, conjunctiva clear. No ptosis. ENT: Ears normal, nares patent, oropharynx clear without exudates, moist mucous membranes. NECK: Trachea midline, full range of motion, supple. LUNGS: Breath sounds equal, clear to auscultation bilaterally, no wheezes, no crackles, no accessory muscle use. HEART: Regular rate and rhythm, S1, S2 without murmur, rub or gallop. ABDOMEN: Soft, nontender, nondistended, normoactive bowel sounds, no guarding, no rebound, no hepatosplenomegaly, no masses. EXTREMITIES: 2+ pulses, warm, well-perfused, no edema. NEUROLOGICAL: Cranial nerves II through XII grossly intact. Normal speech, gait not observed. PSYCH: Normal mood, normal affect. SKIN: Warm, dry, normal turgor. Sacral dressing intact. Laboratory Results - last 24 hr 12/15/16 12/16/16 12/16/16 16:33 05:59 07:00 WBC 8.1 RBC 3.04 L Hgb 7.9 L Hct 25.0 L MCV 82.2 MCHC 31.8 L RDW 19.5 H Plt Count 338 MPV 7.6 Neutrophils % 77.1 Lymphocytes % 11.6 Monocytes % 4.6 Eosinophils % 6.5 H Basophils % 0.2 INR Sodium Potassium Chloride Carbon Dioxide Anion Gap BUN Creatinine Creat Clearance w eGFR POC Glucometer 95 115 Random Glucose Calcium Total Bilirubin AST ALT Alkaline Phosphatase Total Protein Albumin 12/16/16 12/16/16 07:00 07:00 WBC RBC Hgb Hct MCV MCHC RDW Plt Count MPV Neutrophils % Lymphocytes % Monocytes % Eosinophils % Basophils % INR 1.20 H Sodium 140 Potassium 4.3 Chloride 100 Carbon Dioxide 32 Anion Gap 8 BUN 18 D Creatinine 1.0 Creat Clearance w eGFR 54.81 POC Glucometer Random Glucose 94 Calcium 7.7 L Total Bilirubin 0.4 D AST 13 L D ALT 15 D Alkaline Phosphatase 78 Total Protein 5.4 L Albumin 2.0 L Active Medications Generic Name Dose Route Start Last Admin Trade Name Freq PRN Reason Stop Dose Admin Acetaminophen 650 mg 12/13/16 18:05 12/16/16 06:01 Tylenol - PO 650 mg Q4H PRN Administration FEVER OR PAIN Atorvastatin Calcium 20 mg 12/13/16 22:00 12/15/16 21:08 Lipitor - PO 20 mg HS LISA Administration Collagenase 1 applic 12/14/16 10:00 12/15/16 10:29 Santyl - TP Not Given DAILY LISA Docusate Sodium 100 mg 12/13/16 22:00 12/15/16 21:07 Colace - PO Not Given BID LISA Glipizide 5 mg 12/14/16 07:00 12/16/16 06:00 Glucotrol - PO 5 mg AM LISA Administration Levothyroxine Sodium 75 mcg 12/14/16 07:00 12/16/16 06:03 Synthroid - PO 75 mcg AM LISA Administration Losartan Potassium 25 mg 12/16/16 10:00 Cozaar - PO DAILY LISA Magnesium Oxide 400 mg 12/13/16 22:00 12/15/16 21:07 Mag-Ox - PO 400 mg BID LISA Administration Metformin HCl 500 mg 12/14/16 07:00 12/16/16 06:00 Glucophage Xr - PO 500 mg BIDI LISA Administration Oxycodone HCl 5 mg 12/13/16 18:05 12/16/16 06:00 Roxicodone - PO 5 mg Q4H PRN Administration PAIN Pantoprazole Sodium 40 mg 12/13/16 22:00 12/15/16 21:07 Protonix - PO 40 mg BID LISA Administration Piperacillin Sod/Tazobactam Sod 4.5 gm 12/14/16 02:00 12/16/16 01:09 Zosyn 4.5gm Ivpb (Pre-Docked) IVPB 4.5 gm Q8H-IV LISA Administration Polyethylene Glycol 17 gm 12/14/16 10:00 12/15/16 10:28 Miralax (For Daily Use) - PO Not Given DAILY LISA Potassium Chloride 20 meq 12/14/16 10:00 12/15/16 10:27 K-Dur - PO 20 meq DAILY LISA Administration Sodium Chloride 250 ml 12/13/16 18:05 Normal Saline - IV Q20M PRN MAP<65mm Hg OR SBP <90 Torsemide 20 mg 12/14/16 10:00 12/15/16 10:26 Demadex - PO 20 mg DAILY LISA Administration ASSESSMENT/PLAN: 71 year old female s/p debridement of infected sacral ulcer. 1. Sepsis secondary to infected sacral ulcer -Wound cultures + Proteus mirabilis, Enterococcus faecalis, E coli -Continue Zosyn -Dressing changes -Frequent turning/positioning -Follow fever/WBC curves -Blood cultures ngtd -ID and vascular surgery following 2. UTI -Urine culture + E coli -Zosyn as above 3. DM -FSACHS -ISS -Diabetic diet 4. HTN -Cozaar dose decreased to 25mg yesterday given low BPs 5, Morbid obesity -Needs outpatient weight loss plan 6. Venous stasis dermatitis -Duplex LLE done given redness and warmth, negative for DVT per preliminary Imaging sales and distribution clerk report -SCDs -No chemical ppx secondary to anemia/possible GIB 7. Anemia -With positive stool occult, dark stools noted by RN today -Continue Protonix -Transfuse for hgb <7 -GI following, plan for colonoscopy - however patient is concerned about prep because she does not fit on commode -Send c diff 8. TKR revision -Sutures removed DISPO: Requires inpatient services. Refuses colonoscopy unless we can find large commode for bowel prep. Visit type - Emergency Visit Emergency Visit: Yes ED Registration Date: 12/11/16 Care time: The patient presented to the Emergency Department on the above date and was hospitalized for further evaluation of their emergent condition. - New Patient This patient is new to me today: Yes Date on this admission: 12/16/16 - Critical Care Critical Care patient: No - Discharge Referral Referred to [facility] Med P.C.: No
[2016-12-16] MEDS ORDERED: LOSARTAN POTASSIUM 25 MG TABLET PO SCH (10:00)
[2016-12-16] MEDS: DOCUSATE SODIUM 100 MG CAPSULE (FP) PO SCH ×2 (10:07→21:56)
[2016-12-16] MEDS: TORSEMIDE 20 MG TABLET (FP) PO SCH (10:08)
[2016-12-16] MEDS: POTASSIUM CHLORIDE TABS 20 MEQ TABLET.ER (FP) PO SCH (10:08)
[2016-12-16] MEDS: PANTOPRAZOLE 40 MG TABLET (FP) PO SCH ×2 (10:09→21:57)
[2016-12-16] MEDS: MAGNESIUM OXIDE 400 MG TABLET (FP) PO SCH (10:09)
[2016-12-16] MEDS: POLYETHYLENE GLYCOL 3350 119 GM BTL PO SCH (10:09)
[2016-12-16] MEDS: COLLAGENASE CLOSTRIDIUM HIST. 30 GRAMS TUBE TP SCH (10:10)
--- NOTE | 2016-12-16 19:09 | PN ---
Progress Note (short form) - Note Progress Note: CC: anemia/pre-op clearance s: no cp sob palps dizzy, denies worsening edema. dark stool today ? blood. o: Current Medications Acetaminophen (Tylenol -) 650 mg PO Q4H PRN PRN Reason: FEVER OR PAIN Last Admin: 12/16/16 16:35 Dose: 650 mg Atorvastatin Calcium (Lipitor -) 20 mg PO HS [facility] Last Admin: 12/15/16 21:08 Dose: 20 mg Collagenase (Santyl -) 1 applic TP DAILY LISA Last Admin: 12/16/16 10:10 Dose: 1 applic Docusate Sodium (Colace -) 100 mg PO BID [facility] Last Admin: 12/16/16 10:07 Dose: Not Given Glipizide (Glucotrol -) 5 mg PO AM [facility] Last Admin: 12/16/16 06:00 Dose: 5 mg Levothyroxine Sodium (Synthroid -) 75 mcg PO AM [facility] Last Admin: 12/16/16 06:03 Dose: 75 mcg Losartan Potassium (Cozaar -) 25 mg PO DAILY LISA Last Admin: 12/16/16 10:08 Dose: 25 mg Magnesium Oxide (Mag-Ox -) 400 mg PO BID [facility] Last Admin: 12/16/16 10:09 Dose: 400 mg Metformin HCl (Glucophage Xr -) 500 mg PO BIDI [facility] Last Admin: 12/16/16 16:25 Dose: 500 mg Pantoprazole Sodium (Protonix -) 40 mg PO BID [facility] Last Admin: 12/16/16 10:09 Dose: 40 mg Piperacillin Sod/Tazobactam Sod (Zosyn 4.5gm Ivpb (Pre-Docked)) 4.5 gm IVPB Q8H -IV LISA Last Admin: 12/16/16 18:43 Dose: 4.5 gm Polyethylene Glycol (Miralax (For Daily Use) -) 17 gm PO DAILY LISA Last Admin: 12/16/16 10:09 Dose: Not Given Potassium Chloride (K-Dur -) 20 meq PO DAILY LISA Last Admin: 12/16/16 10:08 Dose: 20 meq Sodium Chloride (Normal Saline -) 250 ml IV Q20M PRN PRN Reason: MAP<65mm Hg OR SBP <90 Torsemide (Demadex -) 20 mg PO DAILY [facility] Last Admin: 12/16/16 10:08 Dose: 20 mg Vital Signs - 24 hr 12/15/16 12/15/16 12/16/16 21:00 21:16 05:42 Temperature 98.5 F Pulse Rate 81 84 Respiratory 20 20 20 Rate Blood Pressure 109/52 107/50 O2 Sat by Pulse 96 Oximetry (%) 12/16/16 12/16/16 09:00 10:00 Temperature 97.8 F Pulse Rate 80 Respiratory 20 20 Rate Blood Pressure 127/62 O2 Sat by Pulse 96 Oximetry (%) Intake & Output 12/14/16 12/15/16 12/16/16 12/17/16 07:59 07:59 07:59 07:59 Intake Total 1950 1535 520 120 Output Total 40 Balance 1910 1535 520 120 calm, nad no icterus/xanthelasma no JVD (extremely obese neck) RRR, decr intensity (habitus), no murmur/gallop; PMI not palpable abdomen very obese, nontender; not distended + normal BS mild nonpitting edema bilat pretib throughout dependent portions of body and L> R LE, no cyanosis A and O x3, normal affect not agitated no jaundice diaphoresis CBC, BMP 12/16/16 07:00 12/16/16 07:00 Laboratory Tests 12/16/16 07:00 Total Bilirubin 0.4 D AST 13 L D ALT 15 D Alkaline Phosphatase 78 Albumin 2.0 L ecg 12/12/16: sr, nl intervals, no ischemic changes cxr: no sig chf stress MPI 06/08: no ischemic EKG changes. nl perfusion. EF 45%, global. Echo 02/2016: suboptimal. grossly nl lv size. Mild-mod LV dysfunction. RV not well seen. Mild ARLYN. Mod TR. RVSP 40-50. Small effusion < 1 cm. echo 10/2016: tds; low nl lvef, nl rv, mild lae, mod tr, rvsp 40-50 a/p: pre-operative eval: - RCRI = 2, unknown functional status (probably reduced) - no signs/sx of active ischemic heart dz or decomp chf - no ischemia on recent nuclear stress test, recent echo w/o severe abnormalities - she has acceptable (intermediate) risk of periop CV complications and may proceed without further cardiac testing for the planned foc/egd. systolic dysfunction, chronic mixed syst/diast chf: - episode chf 12/16, EF mildly reduced then, diuresed in hospital - hold losartan, bp remains low, possible ongoing bleed. - still with dependent edema, unclear if from volume overload or third spacing. Repeat standing weight tomorrow with PT. If weight dropping consider holding torsemide. HTN - stopping cozaar as mentioned anemia: - hgb in 6s on admit, s/p prbcs now with improvement in hgb - planned for egd/foc here HLD - con't statin buttuck ulcer: -on abx per ID -had debridement 12/13/16
[2016-12-16] MEDS: ATORVASTATIN CA 20 MG TABLET (FP) PO SCH (21:57)
[2016-12-17] MEDS: PIPERACILLIN/TAZOB 4.5 GM/100 ML PRE-DOCKED IVPB SCH ×2 (00:59→09:29)
[2016-12-17] MEDS: glipiZIDE 5 MG TABLET (FP) PO SCH (06:21)
[2016-12-17] MEDS: LEVOTHYROXINE NA 75 MCG TABLET (FP) PO SCH (06:21)
[2016-12-17] MEDS: oxyCODONE HCL 5 MG TABLET PO PRN ×2 (06:22→11:40)
[2016-12-17] MEDS: ACETAMINOPHEN 325 MG TABLET (FP) PO PRN ×2 (06:22→10:25)
[2016-12-17 07:28] LABS: BASOPHIL 0.2 % (0-2.0); EOSINOPHIL 7.2 % (0-4.5); MCH 26.1 pg (25.7-33.7); MCHC 31.7 g/dl (32.0-36.0); MEAN CELL VOLUME 82.3 fl (80-96); MEAN PLT VOLUME 7.6 fl (7.5-11.1); NEUTROPHILS 72.5 % (42.8-82.8); PLATELET COUNT 362 K/MM3 (134-434); RDW 19.2 % (11.6-15.6); WHITE BLOOD COUNT 8.3 K/mm3 (4.0-10.0)
[2016-12-17 07:43] LABS: ANION GAP 5 (8-16); CO2 33 mmol/L (21-32); CREATININE 0.9 mg/dL (0.55-1.02); GLUCOSE,RANDOM 88 mg/dL (74-106); MAGNESIUM 1.8 mg/dL (1.8-2.4)
[2016-12-17] MEDS ORDERED: PT OWN MED DRAWER 7, Y5N ONE (09:17)
[2016-12-17] MEDS: DOCUSATE SODIUM 100 MG CAPSULE (FP) PO SCH (09:28)
[2016-12-17] MEDS: PANTOPRAZOLE 40 MG TABLET (FP) PO SCH (09:29)
[2016-12-17] MEDS: COLLAGENASE CLOSTRIDIUM HIST. 30 GRAMS TUBE TP SCH (09:29)
[2016-12-17] MEDS: TORSEMIDE 20 MG TABLET (FP) PO SCH (09:29)
[2016-12-17] MEDS: POLYETHYLENE GLYCOL 3350 119 GM BTL PO SCH (09:29)
[2016-12-17] MEDS ORDERED: POTASSIUM CHLORIDE TABS 20 MEQ TABLET.ER (FP) PO SCH (10:00)
[2016-12-17] MEDS ORDERED: MAGNESIUM OXIDE 400 MG TABLET (FP) PO SCH (10:00)
[2016-12-17 10:45] VITALS: BP 115/55; PULSE 73; TEMP 98.5
--- NOTE | 2016-12-17 11:25 | DS ---
Physical Examination Vital Signs: Vital Signs Temperature 98.5 F 12/17/16 09:00 Pulse Rate 73 12/17/16 09:00 Respiratory Rate 20 12/17/16 09:00 Blood Pressure 115/55 12/17/16 09:00 O2 Sat by Pulse Oximetry (%) 97 12/17/16 09:00 Constitutional: Yes: No Distress, Calm, Obese Cardiovascular: Yes: Regular Rate and Rhythm. No: Gallop, Murmur, Rub Respiratory: Yes: Regular, CTA Bilaterally. No: Rales, Rhonchi, Wheezes Gastrointestinal: Yes: Normal Bowel Sounds, Soft. No: Distention, Tenderness Extremities: Yes: WNL Edema: Yes Edema: LLE: 1+, RLE: 1+ Labs: CBC, BMP 12/17/16 06:00 12/17/16 06:00 Discharge Summary Reason For Visit: DM/ANEMIA/HYPOXIA/WOULD OF BUTTOCK Current Active Problems Anemia (Acute) Buttock wound (Acute) DM Diabetes mellitus (Acute) Fever (Acute) Hypoxia (Acute) Morbid obesity (Acute) Prophylactic measure (Acute) Hospital Course: (1) Buttock wound Code(s): S31.809A - UNSPECIFIED OPEN WOUND OF UNSPECIFIED BUTTOCK, INIT ENCNTR Qualifiers: Encounter type: initial encounter Laterality: right Qualified Code( s): S31.819A - Unspecified open wound of right buttock, initial encounter (2) Anemia Code(s): D64.9 - ANEMIA, UNSPECIFIED Qualifiers: Anemia type: unspecified type Qualified Code(s): D64.9 - Anemia, unspecified (3) Morbid obesity Code(s): E66.01 - MORBID (SEVERE) OBESITY DUE TO EXCESS CALORIES Qualifiers: Obesity type: due to excess calories Qualified Code(s): E66.01 - Morbid (severe) obesity due to excess calories (4) Benign hypertension Code(s): I10 - ESSENTIAL (PRIMARY) HYPERTENSION (5) HLD (hyperlipidemia) Code(s): E78.5 - HYPERLIPIDEMIA, UNSPECIFIED (6) Hypothyroid Code(s): E03.9 - HYPOTHYROIDISM, UNSPECIFIED (7) Diabetes Code(s): E11.9 - TYPE 2 DIABETES MELLITUS WITHOUT COMPLICATIONS Qualifiers: Diabetes mellitus type: type 2 Diabetes mellitus complication status: with skin complications Diabetes mellitus complication detail: with foot ulcer Diabetes mellitus ferry terminal agent insulin use: with jail use Qualified Code(s): E11.621 - Type 2 diabetes mellitus with foot ulcer; L97.509 - Non-pressure chronic ulcer of other part of unspecified foot with unspecified severity; 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 Sepsis was present on admission and she was seen by both ID and vascular surgery. She was started on zosyn and was cleared for I&D. She tolerated the I&D well and finished a full course of zosyn. Her sepsis resolved with this treatment. She also had a UTI found on admission, this was treated with antibiotics. She was found to have anemia and transfused. Her stool was positive for occult blood and she was seen by GI. Plans for EGD and colonoscopy were made this admission, however patient adamantly refused to have them done. She would prefer her wound to heal. Defer to outpatient PCP to evaluate wound healing and anemia, may need to present again for this procedures but at this time patient is capable of making her own decisions and understands the risk of deferring. She is safe for discharge back to SNF. 32 minutes spent in preparation of this discharge Condition: Good - Instructions Diet, Activity, Other Instructions: diabetic/low sodium diet. Up with assistance, further assistance per PT at SNF Referrals: Alex Duran MD [Primary Care Provider] - Byron Messer MD [Staff Physician] - Jarret Day MD [Staff Physician] - Tish Cohn MD [Staff Physician] - Disposition: [facility] FACILITY - Home Medications Comprehensive Discharge Medication List: Ambulatory Orders Aa/Hydrolyzed Collagen, Whey [Lps 15-30 Liquid] 30 ml PO BID 12/11/16 Collagenase Clostridium Hist. [Santyl -] 1 applic TP DAILY 12/11/16 Docusate Sodium [Colace -] 100 mg PO BID 12/11/16 Garlic 100 mg PO DAILY 12/11/16 Glipizide 5 mg PO DAILY 12/11/16 Insulin Lispro [Humalog] 0 unit SQ ASDIR 12/11/16 Levothyroxine [Synthroid -] 75 mcg PO DAILY 12/11/16 Magnesium Oxide 400 mg PO BID 12/11/16 Metformin HCl [Metformin HCl ER] 500 mg PO BID 12/11/16 [place]-3 Fatty Acids/Fish Oil [Fish Oil 1,000 mg Softgel] 1 each PO DAILY Oxycodone HCl 10 mg PO ASDIR 12/11/16 Polyethylene Glycol 3350 [Miralax 119 gm Btl -] 17 gm PO DAILY 12/11/16 Simvastatin 40 mg PO DAILY 12/11/16 Torsemide 20 mg PO DAILY 12/11/16 Losartan Potassium [Cozaar -] 25 mg PO DAILY tablet 12/17/16 Pantoprazole Sodium [Protonix -] 40 mg PO BID #0 tab.ec 12/17/16 Potassium Chloride [K-Dur -] 10 meq PO DAILY tab.ec 12/17/16
--- NOTE | 2016-12-17 13:36 | PATH ---
Surgical Pathology Report Patient Name: LUIS GARCIA Med. Rec. #: [id number] /Age/Gender: 1945 (Age: 71) / F Account: [id number] Location: [facility] MED/SURG Taken: 12/13/2016 Received: 12/14/2016 Reported: 12/17/2016 Physicians: Byron Messer Specimen(s) Received DEBRIDEMENT TISSUE RIGHT BUTTOCK Clinical History Right decubitus ulcer buttock Final Diagnosis SOFT TISSUE, RIGHT BUTTOCK, DEBRIDEMENT: GANGRENOUS NECROSIS. Electronically Signed Deon Bowen M.D. Gross Description Received in formalin labeled "debrided tissue right buttock," is a 7.3 x 6.5 x 1.4 cm aggregate of berumen-ledbetter, necrotic soft tissue fragments. A field representatives director portion is submitted in one cassette. /12/14/2016 [facility]12/14/2016
--- NOTE | 2016-12-17 14:11 | PN ---
Progress Note (short form) - Note Progress Note: Patient refusing procedures at this time and would like to wait for her acute issues to be resolved. Discussion was had with her previously regarding why procedures were going to be performed, including the finding of blood in her stool and her family history of colon cancer (to exclude cancer in her as well) . Please recall if she changes her mind. Problem List - Problems (1) Anemia Code(s): D64.9 - ANEMIA, UNSPECIFIED Qualifiers: Anemia type: unspecified type Qualified Code(s): D64.9 - Anemia, unspecified
== END 2016-12-17 14:25 | DRG 854 ==
LOC: JER 18:59 → JERBED 22:18 → UNDOADMIN 23:32 → JERBED 23:32 → J7W 12-12 02:04
PROVIDERS: ADMIT Internal Medicine; ATTEND Internal Medicine
PROC: 30233N1 Transfusion of Nonautologous Red Blood Cells into Peripheral Vein, Percutaneous Approach (ICD-10-PCS; 2016-12-11)
PROC: 0J990ZZ Drainage of Buttock Subcutaneous Tissue and Fascia, Open Approach (ICD-10-PCS; 2016-12-13)
PROC: 0JB90ZZ Excision of Buttock Subcutaneous Tissue and Fascia, Open Approach (ICD-10-PCS; principal; 2016-12-13 14:30)
DX: A41.9 Sepsis, unspecified organism (principal); N39.0 Urinary tract infection, site not specified; Z68.43 Body mass index [BMI] 50.0-59.9, adult; I50.42 Chronic combined systolic (congestive) and diastolic (congestive) heart failure; L02.31 Cutaneous abscess of buttock; D64.9 Anemia, unspecified; E78.5 Hyperlipidemia, unspecified; E03.9 Hypothyroidism, unspecified; E66.01 Morbid (severe) obesity due to excess calories; I11.0 Hypertensive heart disease with heart failure; I87.2 Venous insufficiency (chronic) (peripheral); L89.310 Pressure ulcer of right buttock, unstageable
CPT/HCPCS: 11721; 36415; 36430; 71010-TC; 80048; 80053; 81003; 81015; 82272; 82550; 82803; 83605; 83735; 84100; 84484; 85025; 85610; 85730; 86850; 86900; 86901; 86922; 87040; 87070; 87086; 87186; 87205; 87324; 87449; 88304-TC; 93005; 93010; 93971-TC; 94760; 97116-GP; 97161-GP; 99285-25; G0463-25; P9038; P9058

== ENCOUNTER 2017-02-21 11:52 | Inpatient (IN) | payer OTHER ==
[2017-02-21] MEDS ORDERED: MAGNESIUM CITRATE 300 ML BOTTLE PO ONE (12:45)
[2017-02-21] MEDS ORDERED: MAGNESIUM CITRATE 300 ML BOTTLE ONE (13:05)
[2017-02-21 13:33] LABS: BASOPHIL 0.4 % (0-2.0); EOSINOPHIL 0.9 % (0-4.5); MCH 25.8 pg (25.7-33.7); MCHC 31.4 g/dl (32.0-36.0); MEAN CELL VOLUME 82.1 fl (80-96); MEAN PLT VOLUME 7.6 fl (7.5-11.1); NEUTROPHILS 75.9 % (42.8-82.8); PLATELET COUNT 467 K/MM3 (134-434); RDW 17.3 % (11.6-15.6); WHITE BLOOD COUNT 8.9 K/mm3 (4.0-10.0)
[2017-02-21 13:50] LABS: ANION GAP 8 (8-16); BILIRUBIN,TOTAL 0.4 mg/dL (0.2-1.0); CO2 29 mmol/L (21-32); CREATININE 0.6 mg/dL (0.55-1.02); GLUCOSE,RANDOM 127 mg/dL (74-106); SGOT/AST 13 U/L (15-37); SGPT/ALT 16 U/L (12-78)
[2017-02-21 13:53] LABS: ALK PHOS 101 U/L (45-117); CPK 35 IU/L (26-192); TROPONIN I < 0.02 ng/ml (0.00-0.05)
--- NOTE | 2017-02-21 13:58 | PDOC ---
History of Present Illness <Aisha Arzate - Last Filed: 02/21/17 18:50> - History of Present Illness Initial Comments: 02/21/17 13:54 "The patient is a 71 year old female, afebrile, with a significant past medical history of CHF, COPD, anemia, diabetes, cellulitis, obesity, who presents to the emergency department via ems from [facility] with aide for complaints of constipation with abdominal pain for about one week with two weeks of progressive bilateral upper and lower extremity edema. Pt reports her last BM was 1 week ago. Denies N/V. Endorses lower abdominal pain and cramping. Over the past few days, she also noticed her legs and arms have been more swollen. The patient states she only takes about half of her 40mg BID dose of her Lasix because she doesn't like going to the bathroom so much. She also reports she has also discontinued her colace regimen for the same reason. She denies chest pain, shortness of breath, headache and dizziness. She denies fever, chills, nausea, vomit, diarrhea. She denies dysuria, frequency, urgency and hematuria. Allergies: NKDA Past surgical history: s/p left femur fracture ORIF w/ Dr. Felder PCP - Dr. Duran Vascular - Dr. Byron Messer Childcare Worker - Dr. Robert Rhodes <Will Porras - Last Filed: 02/21/17 19:10> - General Chief Complaint: Pain Stated Complaint: ABD PAIN Time Seen by Provider: 02/21/17 12:28 Past History <Aisha Arzate - Last Filed: 02/21/17 18:50> - Past Medical History Anemia: No Asthma: No Cancer: No Cardiac Disorders: No CVA: No COPD: No CHF: No Dementia: No Diabetes: Yes (IDDM) Disorders: Yes (kidney stones) HTN: Yes Hypercholesterolemia: Yes Liver Disease: No Seizures: No Thyroid Disease: Yes (hypo) - Surgical History Abdominal Surgery: No Appendectomy: No Cardiac Surgery: No Cholecystectomy: No Lung Surgery: No Neurologic Surgery: No Orthopedic Surgery: Yes (LT PARTIAL KNEE REPLACEMENT) - Immunization History Immunization Up to Date: Yes - Psycho/Social/Smoking Cessation Hx Anxiety: No Suicidal Ideation: No Smoking Status: No Smoking History: Former smoker Have you smoked in the past 12 months: No Number of Cigarettes Smoked Daily: 1 If you are a former smoker, when did you quit?: 1981 Information on smoking cessation initiated: No Hx Alcohol Use: No Drug/Substance Use Hx: No Substance Use Type: None Hx Substance Use Treatment: No <Will Porras - Last Filed: 02/21/17 19:10> - Past Medical History Allergies/Adverse Reactions: Allergies Allergy/AdvReac Type Severity Reaction Status Date / Time codeine [Codeine] Allergy Verified 02/21/17 12:13 shellfish derived Allergy Verified 02/21/17 12:13 tramadol AdvReac Mild Verified 02/21/17 12:13 Home Medications: Ambulatory Orders Garlic 100 mg PO DAILY 12/11/16 Levothyroxine [Synthroid -] 75 mcg PO DAILY 12/11/16 [place]-3 Fatty Acids/Fish Oil [Fish Oil 1,000 mg Softgel] 1 each PO DAILY Oxycodone HCl 10 mg PO ASDIR 12/11/16 Simvastatin 40 mg PO DAILY 12/11/16 Torsemide 20 mg PO DAILY 12/11/16 Potassium Chloride [K-Dur -] 10 meq PO DAILY tab.ec 12/17/16 Aspirin [ASA -] 81 mg PO DAILY 02/21/17 Losartan Potassium [Cozaar -] 50 mg PO DAILY 02/21/17 Review of Systems - Review of Systems Comments:: 02/21/17 13:57 """GENERAL/CONSTITUTIONAL: No fever or chills. No weakness. HEAD, EYES, EARS, NOSE AND THROAT: No change in vision. No ear pain or discharge. No sore throat. CARDIOVASCULAR: No chest pain or shortness of breath. RESPIRATORY: No cough, wheezing, or hemoptysis. GASTROINTESTINAL: (+) constipation. No nausea, vomiting, diarrhea GENITOURINARY: No dysuria, frequency, or change in urination. MUSCULOSKELETAL: No joint or muscle swelling or pain. No neck or back pain. SKIN: (+) redness to lower extremities withswelling. NEUROLOGIC: No headache, vertigo, loss of consciousness, or change in strength/ sensation. ENDOCRINE: No increased thirst. No abnormal weight change. HEMATOLOGIC/LYMPHATIC: No anemia, easy bleeding, or history of blood clots. ALLERGIC/IMMUNOLOGIC: No hives or skin allergy. """ <Will Porras - Last Filed: 02/21/17 19:10> *Physical Exam - Vital Signs Last Vital Signs Temp Pulse Resp BP Pulse Ox 97.9 F 86 18 124/64 96 02/21/17 12:00 02/21/17 12:00 02/21/17 12:00 02/21/17 12:00 02/21/17 12:33 <Aisha Arzate - Last Filed: 02/21/17 18:50> - Vital Signs Last Vital Signs Temp Pulse Resp BP Pulse Ox 97.9 F 86 18 124/64 96 02/21/17 12:00 02/21/17 12:00 02/21/17 12:00 02/21/17 12:00 02/21/17 12:33 - Physical Exam Comments: 02/21/17 13:57 """GENERAL: Awake, alert, and fully oriented, in no acute distress HEAD: No signs of trauma EYES: PERRLA, EOMI, sclera anicteric, conjunctiva clear ENT: Auricles normal inspection, hearing grossly normal, nares patent, oropharynx clear without exudates. Moist mucosa NECK: Normal ROM, supple, no lymphadenopathy, JVD, or masses LUNGS: Breath sounds equal, clear to auscultation bilaterally. No wheezes, and no crackles HEART: Regular rate and rhythm, normal S1 and S2, no murmurs, rubs or gallops ABDOMEN: +LLQ TTP, Soft, normoactive bowel sounds. No guarding, no rebound. No masses EXTREMITIES: (+) bilateral lower extremity pitting edema with mild erythema extending to the mid calf region bilaterally. Normal range of motion.No clubbing or cyanosis. No cords, or tenderness NEUROLOGICAL: Cranial nerves II through XII grossly intact. Normal speech, normal gait SKIN: Warm, Dry, normal turgor, no rashes or lesions noted. """ 02/21/17 14:28 <Will Porras - Last Filed: 02/21/17 19:10> ED Treatment Course - LABORATORY CBC & Chemistry Diagram: 02/21/17 13:15 02/21/17 13:15 - ADDITIONAL ORDERS Additional order review: Laboratory Results 02/21/17 02/21/17 02/21/17 13:18 13:15 13:15 Sodium 139 Potassium 4.2 Chloride 102 Carbon Dioxide 29 Anion Gap 8 BUN 9 D Creatinine 0.6 D Creat Clearance w eGFR > 60 Random Glucose 127 H D Lactic Acid 1.2 Calcium 8.0 L Total Bilirubin 0.4 AST 13 L ALT 16 Alkaline Phosphatase 101 D Creatine Kinase Cancelled 35 Troponin I Cancelled < 0.02 B-Natriuretic Peptide Cancelled 2491.44 H Total Protein 6.0 L Albumin 2.0 L Lipase 66 L 02/21/17 13:15 RBC 3.13 L MCV 82.1 MCHC 31.4 L RDW 17.3 H MPV 7.6 Neutrophils % 75.9 Lymphocytes % 16.6 Monocytes % 6.2 Eosinophils % 0.9 D Basophils % 0.4 - RADIOLOGY Radiograph Interpretation: 02/21/17 14:25 EXAM#: TYPE/EXAM: RESULT: [id number] RAD/CHEST X-RAY PORTABLE* CHF. Single portable chest x-ray. Comparison study December 11, 2016. Cardiomegaly. Uncoiled thoracic aorta. No effacement of the diaphragms, blunting of the costophrenic angles. No evidence of congestive changes, peribronchial thickening, Vanessa B lines. No lobar consolidations are seen. Impression: No evidence of active pulmonary disease Reported By: Juan Carlos Connolly MD 02/21/17 1407 EXAM#: TYPE/EXAM: RESULT: [id number] CT/ABDOMEN PELVIS CT WITH CONTR Abdomen and pelvis CT (with contrast) Clinical information: abdominal pain Multiplanar imaging was performed following the intravenous administration of nonionic contrast. Oral contrast was also administered. Evaluation is somewhat limited due to artifact as a result of body habitus. In comparison to a prior CT study of 06/10/2014 interval development of mild to moderate left hydroureter ureter hydronephrosis is noted to the level of the lower pelvis. No definite obstructing ureteral calculus change be visualized allowing for partially obscuring artifact. A 1.1 x 0.5 cm calculus is noted layering along the posterior wall the right renal sinus. This calculus appears decreased in size previously measuring 2.4 x 0.6 cm. Two 0.4 cm nonobstructing right renal calculi are seen within the minor calyces. There is no longer visualization of a 0.4 cm urinary bladder calculus. Her possible visualization of mild linear soft tissue stranding is seen within the left lower pelvis mesenteric fat adjacent to the left adnexa. Apparent interval development of a focal soft tissue wound is seen within the right paramedian aspect of the lower pelvis. Exam coverage on the prior study did not fully include that region. Interval development of subcutaneous edema is seen along the right and left lateral halves of the pelvis. The liver, spleen, pancreas, gallbladder, and adrenal glands demonstrate no obvious abnormality. There is no aortic aneurysm. No evidence of free intraperitoneal fluid, pneumoperitoneum or bowel obstruction. There is no gross CT evidence of acute appendicitis or diverticulitis. Impression: Moderately limited exam due to body habitus. In comparison to a 2014 CT study interval development of mild to moderate left hydroureteronephrosis is noted to the level of the lower pelvis. No obvious obstructing ureteral calculus is noted allowing for traversing artifact. There is no gross mass lesion. There is possible interval development of mild focal mesenteric soft tissue stranding within the left lower pelvis adjacent to the adnexa. Correlation with close follow-up CT is suggested in regards to the previously described findings. A right renal pelvis calculus is seen which appears diminished in size. Small nonobstructing right renal calculi are again noted. There has been apparent interval development of a focal soft tissue wound/ ulceration along the right paramedian aspect of the pelvis posteriorly. Development of bilateral pelvic subcutaneous edema is seen. Interval development of moderate rectal fecal impaction. Mildly enlarged bilateral inguinal lymph nodes are noted which may be reactive. Reported By: Nathen Fulton MD 02/21/17 4785 - Medications Given in the ED: ED Medications Discontinued Medications Generic Name Dose Route Start Last Admin Trade Name Leonard PRN Reason Stop Dose Admin Magnesium Citrate 300 ml 02/21/17 12:45 02/21/17 13:18 Citroma - PO 02/21/17 12:46 300 ml ONCE ONE Administration <Aisha Arzate - Last Filed: 02/21/17 18:50> - LABORATORY CBC & Chemistry Diagram: 02/21/17 13:15 02/21/17 13:15 - ADDITIONAL ORDERS Additional order review: Laboratory Results 02/21/17 02/21/17 13:18 13:15 Lactic Acid 1.2 Creatine Kinase Cancelled Troponin I Cancelled B-Natriuretic Peptide Cancelled 02/21/17 13:15 RBC 3.13 L MCV 82.1 MCHC 31.4 L RDW 17.3 H MPV 7.6 Neutrophils % 75.9 Lymphocytes % 16.6 Monocytes % 6.2 Eosinophils % 0.9 D Basophils % 0.4 - RADIOLOGY Radiology Studies Ordered: Category Date Time Status ABDOMEN & PELVIS CT WITH CONTR [CT] Stat CT Scan 02/21/17 12:44 Ordered CHEST X-RAY PORTABLE* [RAD] Stat Radiology 02/21/17 12:44 Taken - Medications Given in the ED: ED Medications Discontinued Medications Generic Name Dose Route Start Last Admin Trade Name Leonard PRN Reason Stop Dose Admin Magnesium Citrate 300 ml 02/21/17 12:45 02/21/17 13:18 Citroma - PO 02/21/17 12:46 300 ml ONCE ONE Administration <Will Porras - Last Filed: 02/21/17 19:10> Medical Decision Making - Medical Decision Making 02/21/17 18:46 [facility] Hospitalist service was microblogged about this patient for admission. <Aisha Arzate - Last Filed: 02/21/17 18:50> - Medical Decision Making 02/21/17 14:17 71 F with CHF, COPD, DM presenting with extremity swelling and constipation. Pt non-compliant with her lasix, which is likely cause of her edema. Also noncompliant with her stool softeners, which is contributing to her constipation. However, given tenderness on exam, will r/o acute pathology or obstruction with CT. - Labs, trop, BNP - CXR - CTAP 02/21/17 19:09 CTAP negative Trop negative CXR clear Pt with no signs of pulmonary edema. However, given severity of peripheral edema , pt unable to function at home without assistance. will admit pt for IV diuresis. <Will Porras - Last Filed: 02/21/17 19:10> *DC/Admit/Observation/Transfer - Attestations Scribe Attestion: 02/21/17 14:26 Documentation prepared by Aisha Arzate, acting as medical technologist blood bank for Will Porras MD, <Aisha Arzate - Last Filed: 02/21/17 18:50> - Discharge Dispostion Admit: Yes <Will Porras - Last Filed: 02/21/17 19:10> Diagnosis at time of Disposition: Edema due to congestive heart failure - Referrals Referrals: Alirio Garcia MD [Primary Care Provider] -
[2017-02-21] MEDS ORDERED: SODIUM PHOSPHATE/NA BIPHOS 133 ML ENEMA PR ONE (15:29)
[2017-02-21] MEDS ORDERED: FUROSEMIDE 40 MG/4 ML INJECTABLE VIAL IVPUSH ONE (18:21)
[2017-02-21] MEDS ORDERED: FUROSEMIDE 40 MG/4 ML INJECTABLE VIAL ONE (18:45)
--- NOTE | 2017-02-21 20:05 | PN ---
Teaching Attending Note Name of Resident: Goldie Mc ATTENDING PHYSICIAN STATEMENT I saw and evaluated the patient. I reviewed the resident's note and discussed the case with the resident. I agree with the resident's findings and plan as documented. SUBJECTIVE:71-year-old f diffuse lower extremity edema and abdominal swelling. Patient states she's not taken her diuretic medication due to having void frequently OBJECTIVE:. Gen.: Well-nourished . Alert and oriented x3 in no acute distress. HEENT: Normocephalic, atraumatic, pupils equal and reactive to light and accommodation, EOMI, no exophthalmos, normal nasal and oral pharyngeal mucosa. Neck:Trachea midline, no thyroid nodules appreciated or thyromegaly. Cardiovascular: Regular rate, and rhythm, S1, S2, no murmur, no gallop, no rub. Respiration: Equal bilateral breath sounds ,no wheezing, no rhonchi, and no rales. Abdomen: obese, edematous, nontender, bowel sounds present, no hepatosplenomegaly. Musculoskeletal: lower extremity 3+ pitting peripheral edema, equal bilateral pulses, normal ROM. Neuro: Cranial nerves II through XII intact, no focal deficits. Skin: warm to touch, lower extremity erythema, buttocks with multiple stage II pressure ulcers ASSESSMENT AND PLAN: decompensated CHF with bilateral lower extremity edema secondary to noncompliance with medication. Lasix 40 mg daily monitor I&Os, daily weights continue home medications. Multiple decubitus ulcers stage II, turn every 2 hours. DVT prophylaxis.
--- NOTE | 2017-02-21 22:19 | HP ---
CHIEF COMPLAINT: Increased swelling PCP: Dr. Duran Vascular: Dr. Messer Podiatry: Dr. Sheridan HISTORY OF PRESENT ILLNESS: Pt is a 71yo F with PMHx of CHF, Buttock pressure ulcers, and Morbid Obesity who presented to the hospital after waking up this AM and finding increased BLLE and abdominal swelling. The patient admits to noncompliance with her Torsemide 20mg BID because she does not want to get up and urinate frequently. Was in [facility], discharged a month ago, since then has not been compliant. The patient denies CP, SOB, difficulty breathing. She also complains of pain originating from her chronic buttock pressure ulcers. She was taking Oxycodone 10mg daily for the pain. She denies fevers, chills, malaise. Hospitalized previously for sepsis secondary to these ulcers, had I&D by Dr. Messer, treated w / Zosyn. She also complains of constipation with assoc generalized abdominal pain, not on medications. No nausea, vomitting, no hematochezia. ER course was notable for: (1) CXR - cardiomegaly, minimally blunted CVA (2) CT abd - fecal impaction (3) Enema - w/ improvement of constipation, pt now having BMs Recent Travel: Denies PAST MEDICAL HISTORY: CHF, Anemia, DM2 (not on meds), Buttock pressure ulcers, Morbid Obesity PAST SURGICAL HISTORY: L femur fracture w/ CRIF Social History: Lives at home Smoking: Denies Alcohol: Denies Drugs: Denies Family History: Noncontributory Allergies codeine [Codeine] Allergy (Verified 02/21/17 12:13) shellfish derived Allergy (Verified 02/21/17 12:13) tramadol Adverse Reaction (Mild, Verified 02/21/17 12:13) lethargic HOME MEDICATIONS: Home Medications Medication Instructions Recorded Garlic 100 mg PO DAILY 12/11/16 Levothyroxine [Synthroid -] 75 mcg PO DAILY 12/11/16 [place]-3 Fatty Acids/Fish Oil [Fish 1 each PO DAILY 12/11/16 Oil 1,000 mg Softgel] Oxycodone HCl 10 mg PO ASDIR 12/11/16 Simvastatin 40 mg PO DAILY 12/11/16 Torsemide 20 mg PO DAILY 12/11/16 Potassium Chloride [K-Dur -] 10 meq PO DAILY tab.ec 12/17/16 Aspirin [ASA -] 81 mg PO DAILY 02/21/17 Losartan Potassium [Cozaar -] 50 mg PO DAILY 02/21/17 REVIEW OF SYSTEMS CONSTITUTIONAL: Absent: fever, chills, diaphoresis, generalized weakness, malaise, loss of appetite, weight change HEENT: Absent: rhinorrhea, nasal congestion, throat pain, throat swelling, difficulty swallowing, mouth swelling, ear pain, eye pain, visual changes CARDIOVASCULAR: Absent: chest pain, syncope, palpitations, irregular heart rate, lightheadedness , peripheral edema RESPIRATORY: Absent: cough, shortness of breath, dyspnea with exertion, orthopnea, wheezing, stridor, hemoptysis GASTROINTESTINAL: Absent: nausea, vomiting, diarrhea, melena, hematochezia Present: abdominal pain, abdominal distension, constipation GENITOURINARY: Absent: dysuria, frequency, urgency, hesitancy, hematuria, flank pain, genital pain MUSCULOSKELETAL: Absent: myalgia, arthralgia, joint swelling, back pain, neck pain SKIN: Absent: rash, itching, pallor Present: rash, lower ext swelling HEMATOLOGIC/IMMUNOLOGIC: Absent: easy bleeding, easy bruising, lymphadenopathy, frequent infections ENDOCRINE: Absent: unexplained weight gain, unexplained weight loss, heat intolerance, cold intolerance NEUROLOGIC: Absent: headache, focal weakness or paresthesias, dizziness, unsteady gait, seizure, mental status changes, bladder or bowel incontinence PSYCHIATRIC: Absent: anxiety, depression, suicidal or homicidal ideation, hallucinations. PHYSICAL EXAMINATION Vital Signs - 24 hr 02/21/17 19:30 Pulse Rate [ 72 Left Radial] Respiratory 18 Rate Blood Pressure 106/68 [Right Arm] O2 Sat by Pulse 97 Oximetry (%) GEN: AAOx3, distress due to buttock pain HEENT: PERRLA, EOMi, no cervical LAD CV: S1, S2, RRR, no murmurs LUNG: CTABL ABD: obese, edematous, non tender, hypoactive BS, large pannus with cobblestone appearance MSK: Upper extremities - no edema in upper extremities Lower extremities - 3+ bilateral pitting edema with erythema, not warm Buttock - Multiple stage 2 pressure ulcers, TTP NEURO: CN 2-12 intact, no sensation or MSK deficits Laboratory Last Values WBC 8.9 K/mm3 (4.0-10.0) 02/21/17 13:15 RBC 3.13 M/mm3 (3.60-5.2) L 02/21/17 13:15 Hgb 8.1 GM/dL (10.7-15.3) L 02/21/17 13:15 Hct 25.7 % (32.4-45.2) L 02/21/17 13:15 MCV 82.1 fl (80-96) 02/21/17 13:15 MCH 25.8 pg (25.7-33.7) 02/21/17 13:15 MCHC 31.4 g/dl (32.0-36.0) L 02/21/17 13:15 RDW 17.3 % (11.6-15.6) H 02/21/17 13:15 Plt Count 467 K/MM3 (134-434) H D 02/21/17 13:15 MPV 7.6 fl (7.5-11.1) 02/21/17 13:15 Neutrophils % 75.9 % (42.8-82.8) 02/21/17 13:15 Lymphocytes % 16.6 % (8-40) 02/21/17 13:15 Monocytes % 6.2 % (3.8-10.2) 02/21/17 13:15 Eosinophils % 0.9 % (0-4.5) D 02/21/17 13:15 Basophils % 0.4 % (0-2.0) 02/21/17 13:15 Sodium 139 mmol/L (136-145) 02/21/17 13:15 Potassium 4.2 mmol/L (3.5-5.1) 02/21/17 13:15 Chloride 102 mmol/L (98-107) 02/21/17 13:15 Carbon Dioxide 29 mmol/L (21-32) 02/21/17 13:15 Anion Gap 8 (8-16) 02/21/17 13:15 BUN 9 mg/dL (7-18) D 02/21/17 13:15 Creatinine 0.6 mg/dL (0.55-1.02) D 02/21/17 13:15 Creat Clearance w eGFR > 60 (>60) 02/21/17 13:15 Random Glucose 127 mg/dL (74-106) H D 02/21/17 13:15 Lactic Acid 1.2 mmol/L (0.4-2.0) 02/21/17 13:15 Calcium 8.0 mg/dL (8.5-10.1) L 02/21/17 13:15 Total Bilirubin 0.4 mg/dL (0.2-1.0) 02/21/17 13:15 AST 13 U/L (15-37) L 02/21/17 13:15 ALT 16 U/L (12-78) 02/21/17 13:15 Alkaline Phosphatase 101 U/L (45-117) D 02/21/17 13:15 Creatine Kinase Cancelled 02/21/17 13:18 Troponin I Cancelled 02/21/17 13:18 B-Natriuretic Peptide Cancelled 02/21/17 13:18 Total Protein 6.0 g/dl (6.4-8.2) L 02/21/17 13:15 Albumin 2.0 g/dl (3.4-5.0) L 02/21/17 13:15 Lipase 66 U/L (73-393) L 02/21/17 13:15 ASSESSMENT/PLAN: Pt is a 71yo F w/ CHF, noncompliance with meds, chronic buttock pressure ulcers who presented to the ER for increased BLLE swelling. # BLLE Edema - Received IV Lasix 40mg once in ER w/ good UOP - Continue PO Lasix 40mg daily - Daniels to appropriately calculate UOP - Strict I & Os - Daily weights # Buttock Pressure Ulcers - w/ pain - CT abd/pelvis shows soft tissue wound/ulceration along paramedian pelvis - No concern for infection at the moment, afebrile, no WBC count - CBC in AM - Dr Clarke Messer wound consult - Start Percocet, though pt is allergic to codeine, she has taken Oxycodone in the past w/o reaction # Constipation - Likely contributed by pain meds - Added Senna + Colace # Normocytic Anemia - had Fe panel in past - Fe Panel in past shows normal ferritin, low iron, possible ACD - Previously refused workup from GI for EGD + scope - CBC in AM, transfuse if <7 # Hx of Hypothyroidism - Continue Synthroid 75mcg QD # Hx of HLD - Continue statin # Hx of HTN - well controlled - Continue Losartan QD # FEN - Fluids: Not needed - Electrolytes: No abnormal values - Nutrition: Sodium controlled diet # Prophylaxis - DVT: Heparin SQ TID - GI: Not indicated - Deconditioning: PT ordered # Dispo - Admit to Med/Surg Case was discussed with Dr. Ramirez and Dr. Dasha Mc MD - PGY1 Internal Medicine Visit type - Emergency Visit Emergency Visit: Yes ED Registration Date: 02/21/17 Care time: The patient presented to the Emergency Department on the above date and was hospitalized for further evaluation of their emergent condition. - New Patient This patient is new to me today: Yes Date on this admission: 02/22/17 - Critical Care Critical Care patient: No
[2017-02-21] MEDS: HEPARIN NA (PORCINE) 5,000 UNITS/ML 1ML VIAL SQ SCH (22:38)
[2017-02-22] MEDS: oxyCODONE HCL 5 MG TABLET PO PRN ×2 (00:26→19:01)
[2017-02-22 03:02] VITALS: BMI 53.4
[2017-02-22] MEDS: HEPARIN NA (PORCINE) 5,000 UNITS/ML 1ML VIAL SQ SCH ×3 (06:36→21:34)
[2017-02-22] MEDS: LEVOTHYROXINE NA 75 MCG TABLET (FP) PO SCH (06:37)
[2017-02-22] MEDS ORDERED: INSULIN (NOVOLOG) ASPART 100 UNITS/ML 10ML VIAL ONE (07:09)
[2017-02-22 07:40] LABS: MCH 26.1 pg (25.7-33.7); MCHC 31.6 g/dl (32.0-36.0); MEAN CELL VOLUME 82.5 fl (80-96); MEAN PLT VOLUME 7.7 fl (7.5-11.1); PLATELET COUNT 502 K/MM3 (134-434); RDW 17.6 % (11.6-15.6); WHITE BLOOD COUNT 14.7 K/mm3 (4.0-10.0)
[2017-02-22 07:50] LABS: ANION GAP 9 (8-16); CALCIUM 8.3 mg/dL (8.5-10.1); CO2 28 mmol/L (21-32); CREATININE 0.6 mg/dL (0.55-1.02); GLUCOSE,RANDOM 151 mg/dL (74-106)
[2017-02-22 08:20] LABS: PH,URINE 6.5 (5.0-8.0); URINE APPEARANCE CLEAR; URINE BILIRUBIN NEGATIVE (NEGATIVE); URINE BLOOD NEGATIVE (NEGATIVE); URINE COLOR LT. YELLOW; URINE GLUCOSE (UA) NEGATIVE (NEGATIVE); URINE KETONE NEGATIVE (NEGATIVE); URINE LEUK ESTERASE NEGATIVE (NEGATIVE); URINE PROTEIN NEGATIVE (NEGATIVE); URINE UROBILINOGEN 0.2 mg/dL (0.2-1.0)
[2017-02-22 08:34] LABS: URINE NITRITE POSITIVE (NEGATIVE)
[2017-02-22 08:36] LABS: URINE BACTERIA FEW /hpf (NONE SEEN); URINE MUCUS RARE; URINE WBC 6 /hpf (3-5)
--- NOTE | 2017-02-22 09:06 | EKG ---
Test Reason : Blood Pressure : / mmHG Vent. Rate : 089 BPM Atrial Rate : 089 BPM P-R Int : 162 ms QRS Dur : 084 ms QT Int : 370 ms P-R-T Axes : 075 -09 034 degrees QTc Int : 450 ms SINUS RHYTHM WITH MARKED SINUS ARRHYTHMIA Confirmed by FIDELINA ASH MD ([id number]) on 02/22/2017 9:05:56 AM Referred By: Confirmed By:FIDELINA ASH MD
[2017-02-22] MEDS: ASPIRIN 81 MG CHEWABLE TABLETS PO SCH (09:28)
[2017-02-22] MEDS: FUROSEMIDE 40 MG TABLET (FP) PO SCH (09:28)
[2017-02-22] MEDS: LOSARTAN POTASSIUM 50 MG TABLET (FP) PO SCH (09:28)
[2017-02-22] MEDS ORDERED: VANCOMYCIN 1,000 MG in DEXTROSE 5%-WATER - 250 ML IVPB ONE (13:39)
[2017-02-22] MEDS ORDERED: PIPERACILLIN/TAZOB 3.375 GM/50 ML PRE-DOCKED IV ONE (13:39)
[2017-02-22] MEDS ORDERED: PIPERACILLIN/TAZOB 3.375 GM 3.375 GM in DEXTROSE 5%-WATER - 50 ML IVPB ONE (14:15)
[2017-02-22] MEDS ORDERED: DEXTROSE 5%-WATER - 50 ML IVPB ONE (14:35)
[2017-02-22] MEDS ORDERED: PIPERACILLIN/TAZOBACTAM 3.375 GM VIAL IVPB ONE (14:35)
[2017-02-22] MEDS ORDERED: PT OWN MED DRAWER 7, Y5N ONE (14:51)
[2017-02-22] MEDS ORDERED: VANCOMYCIN 1 GRAM (PRE-DOCKED) 250 ML IVPB ONE (15:15)
--- NOTE | 2017-02-22 15:21 | PN ---
Progress Note (short form) - Note Progress Note: ID Consult dictated Recurrent bilateral LE cellulitis R ischial ulcer L HN, possible obstructive uropathy Leukocytosis Pending sepsis workup, empiric vanco/ zosyn
--- NOTE | 2017-02-22 16:04 | CONS ---
DATE OF CONSULTATION: DATE OF DICTATION: 02/22/2017 INFECTIOUS DISEASE CONSULTATION HISTORY OF PRESENT ILLNESS: The patient is a 71-year-old female who was evaluated for recurrent bilateral lower extremity cellulitis. Patient is known to me from previous admissions. She was admitted to [facility] in October of 2016 after falling. She had sustained a periprosthetic fracture. She was taken to the operating room on November 02, 2016, where a revision of left total knee replacement was performed. Her postoperative course was complicated by cellulitis of the unaffected leg, and secondary group A Streptococcus bacteremia. She received a course of IV antibiotic therapy. She was discharged to intermediate facility for rehabilitation. The patient returned to her brother's house approximately one month ago after spending 3 months in the residential. She is now admitted with increasing lower extremity edema and weakness as well as vague abdominal pain. According to the notes, she had been noncompliant with her diuretic therapy because of frequent urination. She was evaluated at [facility] where white blood cell count was elevated at 14.7. A CAT scan of the abdomen and pelvis performed showed nonobstructing stones in the right kidney, however left hydronephrosis without clear obstructing stone. She denies any abdominal pain or flank pain at the present time. No complaints of recent dysuria or hematuria. Denies vomiting or diarrhea. PAST MEDICAL HISTORY: Positive for morbid obesity, diabetes mellitus, COPD, congestive heart failure, recurrent lower extremity cellulitis. PAST SURGICAL HISTORY: Status post left hip fracture, left total knee replacement with revision. ALLERGIES: CODEINE and TRAMADOL. MEDICATION: Medications at the present time include Tylenol, Cozaar, Bacid, Lasix, Synthroid. SOCIAL HISTORY: As per HPI. Former smoker. SYSTEMS REVIEW: Neurologic: No loss of consciousness, seizure activity, or focal weakness. Cardiac: Negative chest pain or palpitations. Respiratory: Negative cough or sputum production. Gastrointestinal: Negative vomiting or diarrhea. Genitourinary: As per HPI. LABORATORY DATA: White count 14.7, hematocrit 26.1, platelet count 502, BUN 10, creatinine 0.6. Urinalysis: 6 white cells. Blood cultures pending. Previous cultures significant for proteus and enterococcus from right buttock wound. Group A Streptococcus bacteremia. She has had MRSA from a wound culture from 2016. Chest x-ray negative for acute infiltrate. PHYSICAL EXAMINATION: General: She is awake. She is not acutely toxic appearing. Morbidly obese. Vital signs: Temperature 98.5, blood pressure 105/65, pulse 92 regular, respirations 20 per minute. HEENT: Sclerae anicteric. Cardiovascular: Heart sounds S1, S2. Respiratory: Lungs clear. Abdomen: Obese. Soft. No tenderness elicited. Extremities: Examination of the lower extremities: Bilateral lower extremity edema. There was confluent erythema and warmth present on the lower extremities bilaterally from the below the knee to above the ankle. There is a stage 4 right buttock decubitus which is packed. Some sloughing of skin off the posterior and medial thighs. IMPRESSION: 1. Recurrent bilateral lower extremity cellulitis. 2. Right ischial decubitus ulcer. 3. Left hydronephrosis, possible obstructive uropathy. 4. Leukocytosis. Potential sources for infection in this patient include recurrent bacteremia secondary to recurrent cellulitis, right buttock decubitus ulcer and possible obstructive uropathy secondary to nephrolith. Pending sepsis workup, empiric antibiotic coverage with vancomycin and Zosyn. Local wound care. Thank you for the kind referral. FIDELINA BUITRAGO M.D. [id number]
--- NOTE | 2017-02-22 16:20 | PN ---
Progress Note, Physician Chief Complaint: Ms Vázquez says she is feeling better. Says swelling has resolved and having bowel movements. Complains of hemorrhoids. No cp, sob, n/v. - Current Medication List Current Medications: Active Medications Acetaminophen (Tylenol -) 650 mg PO Q4H PRN PRN Reason: PAIN Stop: 02/24/17 23:09 Aspirin (Asa -) 81 mg PO DAILY [facility] Last Admin: 02/22/17 09:28 Dose: 81 mg Atorvastatin Calcium (Lipitor -) 40 mg PO HS [facility] Docusate Sodium (Colace -) 100 mg PO Q8H PRN PRN Reason: CONSTIPATION Furosemide (Lasix -) 40 mg PO DAILY [facility] Last Admin: 02/22/17 09:28 Dose: 40 mg Heparin Sodium (Porcine) (Heparin -) 5,000 unit SQ TID [facility] Last Admin: 02/22/17 14:40 Dose: 5,000 unit Hydrocortisone (Anusol 2.5% Hc Cream -) 1 applic TP BID [facility] Vancomycin HCl 1,250 mg/ (Dextrose) 250 mls @ 150 mls/hr IVPB BID@0300,1500 [facility] Piperacillin Sod/Tazobactam (Sod 4.5 gm/ Dextrose) 100 mls @ 200 mls/hr IVPB Q8H-IV [facility] PRN Reason: Protocol Lactobacillus Acidophilus (Bacid -) 1 tab PO DAILY [facility] Levothyroxine Sodium (Synthroid -) 75 mcg PO AM [facility] Last Admin: 02/22/17 06:37 Dose: 75 mcg Losartan Potassium (Cozaar -) 50 mg PO DAILY [facility] Last Admin: 02/22/17 09:28 Dose: 50 mg Oxycodone HCl (Roxicodone -) 10 mg PO Q4H PRN PRN Reason: PAIN Last Admin: 02/22/17 00:26 Dose: 10 mg Senna (Senna -) 2 tab PO HS PRN PRN Reason: CONSTIPATION - Objective Vital Signs: Vital Signs Temperature 36.9 C 02/22/17 14:00 Pulse Rate 92 H 02/22/17 14:00 Respiratory Rate 20 02/22/17 14:00 Blood Pressure 104/61 02/22/17 14:00 O2 Sat by Pulse Oximetry (%) 98 02/22/17 09:00 Constitutional: Yes: No Distress, Calm, Obese Cardiovascular: Yes: Regular Rate and Rhythm. No: Gallop, Murmur, Rub Respiratory: Yes: Regular, CTA Bilaterally. No: Rales, Rhonchi, Wheezes Gastrointestinal: Yes: Normal Bowel Sounds, Soft. No: Distention, Tenderness Extremities: Yes: Erythema (bilateral lower extremities) Edema: Yes Edema: LLE: 1+, RLE: 1+ Labs: CBC, BMP 02/22/17 06:30 02/22/17 06:30 Assessment/Plan 1. Cellulitis -patient found to have cellulitis -ordered dose of vancomycin and zosyn -ID consulted and will see 2. Sepsis -also with leukocytosis and tachycardia -will not hydrate secondary to patient coming in fluid overloaded -continue antibiotics -follow up cultures 3. Buttock wound -possible source of sepsis -continue antibiotics -wound care consult 4. Dependent edema -secondary to body habitus and lack of mobility -patient stopped taking torsemide secondary to not wanting to urinate frequently -diuresing well -continue lasix 40mg daily 5. HTN -well controlled -continue cozaar 6. Hypothyroid -continue synthroid 7. HLD -continue statin
--- NOTE | 2017-02-22 16:20 | PN ---
Progress Note (short form) - Note Progress Note: Vascular Surgery Pt seen and examined. Sacrum getting better. Cont wet to dry dressing changes to sacrum right thigh wound -- stage 2 -- 6x6. Clean, pink. start santyl to that area. Bl lower ext cellulitis. ID on case Byron carrero DO
[2017-02-22] MEDS ORDERED: PIPERACILLIN/TAZOBACTAM 4.5 GM VIAL IVPB ONE (17:12)
[2017-02-22] MEDS ORDERED: DEXTROSE 5%-WATER 100 ML IVPB ONE (17:12)
[2017-02-22] MEDS: HYDROCORTISONE 2.5% TOPICAL CREAM 30 GM TUBE TP SCH ×2 (17:14→21:39)
[2017-02-22] MEDS: PIPERACILLIN/TAZOB 4.5 GM 4.5 GM in DEXTROSE 5%-WATER 100 ML IVPB SCH (17:15)
[2017-02-22] MEDS: ACETAMINOPHEN 325 MG TABLET (FP) PO PRN (19:01)
[2017-02-22] MEDS: ATORVASTATIN CA 20 MG TABLET (FP) PO SCH (21:34)
[2017-02-22] MEDS: DOCUSATE SODIUM 100 MG CAPSULE (FP) PO PRN (22:51)
[2017-02-22] MEDS: SENNOSIDES 8.6MG TABLET (FP) PO PRN (22:51)
[2017-02-23] MEDS ORDERED: DEXTROSE 5%-WATER 100 ML IVPB ONE (00:45)
[2017-02-23] MEDS ORDERED: PIPERACILLIN/TAZOBACTAM 4.5 GM VIAL IVPB ONE (00:45)
[2017-02-23] MEDS: oxyCODONE HCL 5 MG TABLET PO PRN ×3 (00:49→14:46)
[2017-02-23] MEDS: ACETAMINOPHEN 325 MG TABLET (FP) PO PRN ×3 (00:50→14:47)
[2017-02-23] MEDS: PIPERACILLIN/TAZOB 4.5 GM 4.5 GM in DEXTROSE 5%-WATER 100 ML IVPB SCH ×2 (01:07→11:01)
[2017-02-23] MEDS ORDERED: VANCOMYCIN 1,250 MG in DEXTROSE 5%-WATER - 250 ML IVPB SCH (03:00)
[2017-02-23] MEDS: LEVOTHYROXINE NA 75 MCG TABLET (FP) PO SCH (05:59)
[2017-02-23] MEDS: HEPARIN NA (PORCINE) 5,000 UNITS/ML 1ML VIAL SQ SCH ×3 (06:00→22:47)
[2017-02-23 08:48] LABS: BASOPHIL 0.1 % (0-2.0); EOSINOPHIL 3.6 % (0-4.5); MCH 25.6 pg (25.7-33.7); MCHC 31.1 g/dl (32.0-36.0); MEAN CELL VOLUME 82.1 fl (80-96); MEAN PLT VOLUME 7.8 fl (7.5-11.1); NEUTROPHILS 83.7 % (42.8-82.8); PLATELET COUNT 490 K/MM3 (134-434); RDW 17.7 % (11.6-15.6); WHITE BLOOD COUNT 15.4 K/mm3 (4.0-10.0)
[2017-02-23 09:13] LABS: ANION GAP 9 (8-16); CALCIUM 7.4 mg/dL (8.5-10.1); CO2 30 mmol/L (21-32); CREATININE 0.6 mg/dL (0.55-1.02); GLUCOSE,RANDOM 116 mg/dL (74-106); PHOSPHOROUS 3.9 mg/dL (2.5-4.9)
--- NOTE | 2017-02-23 09:22 | PN ---
Progress Note, Physician History of Present Illness: Patient feeling stool "stuck" right at anal opening. nurse reporting patient required manual disimpaction last night. Back on diuretics patient leg swelling has decreased. - Current Medication List Current Medications: Active Medications Acetaminophen (Tylenol -) 650 mg PO Q4H PRN PRN Reason: PAIN Stop: 02/24/17 23:09 Last Admin: 02/23/17 06:43 Dose: 650 mg Aspirin (Asa -) 81 mg PO DAILY [facility] Last Admin: 02/22/17 09:28 Dose: 81 mg Atorvastatin Calcium (Lipitor -) 40 mg PO HS [facility] Last Admin: 02/22/17 21:34 Dose: 40 mg Docusate Sodium (Colace -) 100 mg PO Q8H PRN PRN Reason: CONSTIPATION Last Admin: 02/22/17 22:51 Dose: 100 mg Furosemide (Lasix -) 40 mg PO DAILY [facility] Last Admin: 02/22/17 09:28 Dose: 40 mg Heparin Sodium (Porcine) (Heparin -) 5,000 unit SQ TID [facility] Last Admin: 02/23/17 06:00 Dose: 5,000 unit Hydrocortisone (Anusol 2.5% Hc Cream -) 1 applic TP BID [facility] Last Admin: 02/22/17 21:39 Dose: 1 applic Vancomycin HCl 1,250 mg/ (Dextrose) 250 mls @ 150 mls/hr IVPB BID@0300,1500 [facility] Last Admin: 02/23/17 02:12 Dose: 150 mls/hr Piperacillin Sod/Tazobactam (Sod 4.5 gm/ Dextrose) 100 mls @ 200 mls/hr IVPB Q8H-IV [facility] PRN Reason: Protocol Last Admin: 02/23/17 01:07 Dose: 200 mls/hr Lactobacillus Acidophilus (Bacid -) 1 tab PO DAILY [facility] Levothyroxine Sodium (Synthroid -) 75 mcg PO AM [facility] Last Admin: 02/23/17 05:59 Dose: 75 mcg Losartan Potassium (Cozaar -) 50 mg PO DAILY [facility] Last Admin: 02/22/17 09:28 Dose: 50 mg Oxycodone HCl (Roxicodone -) 10 mg PO Q4H PRN PRN Reason: PAIN Last Admin: 02/23/17 06:37 Dose: 10 mg Senna (Senna -) 2 tab PO HS PRN PRN Reason: CONSTIPATION Last Admin: 02/22/17 22:51 Dose: 2 tab - Objective Vital Signs: Vital Signs Temperature 97.9 F 02/23/17 06:00 Pulse Rate 89 02/23/17 06:00 Respiratory Rate 20 02/23/17 06:00 Blood Pressure 94/46 02/23/17 06:00 O2 Sat by Pulse Oximetry (%) 98 02/22/17 21:00 Constitutional: Yes: Mild Distress (due to rectal pain/ spasm) HENT: Yes: Atraumatic, Normocephalic Cardiovascular: Yes: Regular Rate and Rhythm, S1, S2. No: Murmur Respiratory: Yes: Regular, Diminished (bilaterally due to body habitus) Gastrointestinal: Yes: Normal Bowel Sounds, Soft, Abdomen, Obese. No: Distention, Tenderness Extremities: Yes: Other (sacral decub ulcer, pressure ulcers rigth posterior thigh, right foot with draining ulcers) Edema: Yes Edema: LLE: 2+, RLE: 3+ Neurological: Yes: Alert, Oriented Labs: CBC, BMP 02/23/17 07:00 02/23/17 07:00 Problem List - Problems (1) Sepsis Assessment/Plan: -increased WBC today (discussed with ID) -obstructive uropathy as a possible etiology with multiple renal stones seen on CT scan -urology consult Code(s): A41.9 - SEPSIS, UNSPECIFIED ORGANISM (2) Edema due to congestive heart failure Assessment/Plan: -back on diuretics -improving Code(s): I50.9 - HEART FAILURE, UNSPECIFIED (3) Anemia Assessment/Plan: repeat CBC today -may need blood transfusion (does not appear to be active bleeding so may be sepsis related) Code(s): D64.9 - ANEMIA, UNSPECIFIED Qualifiers: Anemia type: unspecified type Qualified Code(s): D64.9 - Anemia, unspecified (4) Buttock wound Assessment/Plan: -getting packing for treatment -start Silvadene for leg wound and podiatry eval of foot ulcer Code(s): S31.809A - UNSPECIFIED OPEN WOUND OF UNSPECIFIED BUTTOCK, INIT ENCNTR Qualifiers: Encounter type: initial encounter Laterality: right Qualified Code( s): S31.819A - Unspecified open wound of right buttock, initial encounter (5) Cellulitis Assessment/Plan: -on ceftriaxone Code(s): L03.90 - CELLULITIS, UNSPECIFIED Qualifiers: Site of cellulitis: extremity Site of cellulitis of extremity: lower extremity Laterality: right Qualified Code(s): L03.115 - Cellulitis of right lower limb (6) DM Diabetes mellitus Assessment/Plan: -currently controlled blood sugar off medications Code(s): E11.9 - TYPE 2 DIABETES MELLITUS WITHOUT COMPLICATIONS (7) HTN (hypertension) Assessment/Plan: -on cozaar Code(s): I10 - ESSENTIAL (PRIMARY) HYPERTENSION (8) Hypothyroid Assessment/Plan: -on synthroid Code(s): E03.9 - HYPOTHYROIDISM, UNSPECIFIED (9) Hypoxia Assessment/Plan: -cont O2 (on home O2 as well) Code(s): R09.02 - HYPOXEMIA (10) UTI (urinary tract infection) Assessment/Plan: -on ceftriaxone currently Code(s): N39.0 - URINARY TRACT INFECTION, SITE NOT SPECIFIED Qualifiers: Urinary tract infection type: acute cystitis Hematuria presence: without hematuria Qualified Code(s): N30.00 - Acute cystitis without hematuria (11) Obstructive uropathy Assessment/Plan: -urology to consult Code(s): N13.9 - OBSTRUCTIVE AND REFLUX UROPATHY, UNSPECIFIED (12) HLD (hyperlipidemia) Assessment/Plan: -on lipitor Code(s): E78.5 - HYPERLIPIDEMIA, UNSPECIFIED Assessment/Plan Current Active Problems Edema due to congestive heart failure (Acute)
[2017-02-23] MEDS ORDERED: MINERAL OIL ENEMA 133 ML ENEMA PR ONE (09:41)
--- NOTE | 2017-02-23 10:07 | PN ---
Progress Note, Physician Chief Complaint: ID vancsamuel watkins as per Dr Alvarado Never febrile - Current Medication List Current Medications: Active Medications Acetaminophen (Tylenol -) 650 mg PO Q4H PRN PRN Reason: PAIN Stop: 02/24/17 23:09 Last Admin: 02/23/17 06:43 Dose: 650 mg Aspirin (Asa -) 81 mg PO DAILY [facility] Last Admin: 02/22/17 09:28 Dose: 81 mg Atorvastatin Calcium (Lipitor -) 40 mg PO HS [facility] Last Admin: 02/22/17 21:34 Dose: 40 mg Collagenase (Santyl -) 1 applic TP DAILY [facility] Docusate Sodium (Colace -) 100 mg PO Q8H PRN PRN Reason: CONSTIPATION Last Admin: 02/22/17 22:51 Dose: 100 mg Furosemide (Lasix -) 40 mg PO DAILY [facility] Last Admin: 02/22/17 09:28 Dose: 40 mg Heparin Sodium (Porcine) (Heparin -) 5,000 unit SQ TID [facility] Last Admin: 02/23/17 06:00 Dose: 5,000 unit Hydrocortisone (Anusol 2.5% Hc Cream -) 1 applic TP BID [facility] Last Admin: 02/22/17 21:39 Dose: 1 applic Vancomycin HCl 1,250 mg/ (Dextrose) 250 mls @ 150 mls/hr IVPB BID@0300,1500 [facility] Last Admin: 02/23/17 02:12 Dose: 150 mls/hr Piperacillin Sod/Tazobactam (Sod 4.5 gm/ Dextrose) 100 mls @ 200 mls/hr IVPB Q8H-IV [facility] PRN Reason: Protocol Last Admin: 02/23/17 01:07 Dose: 200 mls/hr Lactobacillus Acidophilus (Bacid -) 1 tab PO DAILY [facility] Levothyroxine Sodium (Synthroid -) 75 mcg PO AM [facility] Last Admin: 02/23/17 05:59 Dose: 75 mcg Losartan Potassium (Cozaar -) 50 mg PO DAILY [facility] Last Admin: 02/22/17 09:28 Dose: 50 mg Mineral Oil (Fleet Mineral Oil Rectal Enema -) 133 ml [place] NOW ONE Stop: 02/23/17 09:42 Oxycodone HCl (Roxicodone -) 10 mg PO Q4H PRN PRN Reason: PAIN Last Admin: 02/23/17 06:37 Dose: 10 mg Senna (Senna -) 2 tab PO HS PRN PRN Reason: CONSTIPATION Last Admin: 02/22/17 22:51 Dose: 2 tab Silver Sulfadiazine (Silvadene -) 1 applic TP DAILY [facility] - Objective Vital Signs: Vital Signs Temperature 97.9 F 02/23/17 06:00 Pulse Rate 89 02/23/17 06:00 Respiratory Rate 20 02/23/17 06:00 Blood Pressure 94/46 02/23/17 06:00 O2 Sat by Pulse Oximetry (%) 98 02/22/17 21:00 Constitutional: Yes: Obese Cardiovascular: Yes: S1, S2 Respiratory: Yes: WNL, Regular, CTA Bilaterally Gastrointestinal: Yes: WNL, Normal Bowel Sounds, Abdomen, Obese. No: Tenderness , Epigastrium Extremities: Yes: Erythema (Ulcers RLE foor clean Abrasion to post calf areas), Other Edema: Yes Labs: CBC, BMP 02/23/17 07:00 02/23/17 07:00 Assessment/Plan Laboratory Tests 02/23/17 02/23/17 07:00 07:00 WBC 15.4 H Hgb 6.4 L* D Hct 20.4 L D Plt Count 490 H BUN 8 Creatinine 0.6 Assessment Suspect WBC related to hydronephrosis Plan Switch to Ceftriaxone Urology evaluation ? stent Repeat CBC ? severe anemia Discussed with Dr Jose Campuzano MD
[2017-02-23 10:42] LABS: BASOPHIL 0.2 % (0-2.0); EOSINOPHIL 3.7 % (0-4.5); MCH 25.7 pg (25.7-33.7); MCHC 31.4 g/dl (32.0-36.0); MEAN CELL VOLUME 82.1 fl (80-96); MEAN PLT VOLUME 7.6 fl (7.5-11.1); NEUTROPHILS 84.7 % (42.8-82.8); PLATELET COUNT 496 K/MM3 (134-434); RDW 17.5 % (11.6-15.6); WHITE BLOOD COUNT 15.2 K/mm3 (4.0-10.0)
[2017-02-23] MEDS: DOCUSATE SODIUM 100 MG CAPSULE (FP) PO PRN (11:17)
[2017-02-23] MEDS: LOSARTAN POTASSIUM 50 MG TABLET (FP) PO SCH (11:17)
[2017-02-23] MEDS: ASPIRIN 81 MG CHEWABLE TABLETS PO SCH (11:17)
[2017-02-23] MEDS: LACTOBACILLUS ACIDOPHILUS 1 EACH TAB (FP) PO SCH (11:17)
[2017-02-23] MEDS: FUROSEMIDE 40 MG TABLET (FP) PO SCH (11:17)
[2017-02-23] MEDS: SILVER SULFADIAZINE 1% TOP CREAM 50 GM JAR TP SCH (11:18)
[2017-02-23] MEDS: COLLAGENASE CLOSTRIDIUM HIST. 30 GRAMS TUBE TP SCH (11:18)
[2017-02-23] MEDS: HYDROCORTISONE 2.5% TOPICAL CREAM 30 GM TUBE TP SCH ×2 (11:20→22:49)
[2017-02-23] MEDS ORDERED: CEFTRIAXONE 2 GM in SODIUM CHLORIDE 100 ML IVPB SCH (11:30)
[2017-02-23] MEDS ORDERED: SODIUM CHLORIDE 100 ML IVPB ONE (11:38)
[2017-02-23] MEDS ORDERED: CEFTRIAXONE 2 GM in DEXTROSE 5%-WATER 100 ML IVPB SCH (12:10)
--- NOTE | 2017-02-23 12:30 | CONSULT ---
Consult - text type - Consultation Consultation Note: Podiatry Consultation: 71 year old DM F, well known to me from wound care center, presents for admission for significant swelling/redness to the legs. Patient recently discharged from SNF and has been non-compliant at home to her own admission. She has history of poor compliance. She was being treated for R heel ulcer in wound care, achieved resolution in November and I have not seen her since. She does not know when the wound re-opened. She has been walking and weightbearing much more since being discharged from wound care. She denies F/V/N/C/SOB/CP. Currently afebrile, VSS. PMHx: NIDDM, HTN, CHF, morbid obesity, buttocks ulcer, heel ulcer Meds: noted ALL: codeine, tramadol, shellfish MASON: R foot: pedal pulses palpable, TG warm-warmer B/L LEs, CFT brisk to all toes. There is a plantar heel DM ulcer with mixed fibrogranular base, mostly granular , hyperkeratotic borders, no deep probing, no purulence, no fluctuance, no soft tissue crepitus. There is cellulitis to bilateral lower legs. Blood Cx: pending WBC: 15.2 Imp: 71 year old DM F with R heel DM ulcer 1. Local wound care with santyl 2. Heel offloading measures 3. Minimize WB activity 4. No podiatric surgical intervention necessary. She will need follow up in wound care center upon discharge 5. IV abx and ID management for bilateral LE cellulitis 6. Thank you for the consult. Pallavi Rhodes DPM
[2017-02-23] MEDS: ATORVASTATIN CA 20 MG TABLET (FP) PO SCH (22:48)
[2017-02-24] MEDS: HEPARIN NA (PORCINE) 5,000 UNITS/ML 1ML VIAL SQ SCH ×3 (06:21→22:26)
[2017-02-24] MEDS: LEVOTHYROXINE NA 75 MCG TABLET (FP) PO SCH (06:21)
[2017-02-24 08:13] LABS: BASOPHIL 0.2 % (0-2.0); EOSINOPHIL 7.4 % (0-4.5); MCH 26.4 pg (25.7-33.7); MCHC 32.2 g/dl (32.0-36.0); MEAN CELL VOLUME 82.1 fl (80-96); MEAN PLT VOLUME 7.6 fl (7.5-11.1); NEUTROPHILS 70.3 % (42.8-82.8); PLATELET COUNT 439 K/MM3 (134-434); RDW 17.3 % (11.6-15.6)
--- NOTE | 2017-02-24 08:14 | PN ---
Progress Note, Physician History of Present Illness: Feeling better, especially since she had large BM yesterday and again last night. Repeat CBC showed hgb low still. - Current Medication List Current Medications: Active Medications Acetaminophen (Tylenol -) 650 mg PO Q4H PRN PRN Reason: PAIN Stop: 02/24/17 23:09 Last Admin: 02/23/17 14:47 Dose: 650 mg Aspirin (Asa -) 81 mg PO DAILY [facility] Last Admin: 02/23/17 11:17 Dose: 81 mg Atorvastatin Calcium (Lipitor -) 40 mg PO HS [facility] Last Admin: 02/23/17 22:48 Dose: 40 mg Collagenase (Santyl -) 1 applic TP DAILY [facility] Last Admin: 02/23/17 11:18 Dose: 1 applic Docusate Sodium (Colace -) 100 mg PO Q8H PRN PRN Reason: CONSTIPATION Last Admin: 02/23/17 11:17 Dose: 100 mg Furosemide (Lasix -) 40 mg PO DAILY [facility] Last Admin: 02/23/17 11:17 Dose: 40 mg Heparin Sodium (Porcine) (Heparin -) 5,000 unit SQ TID [facility] Last Admin: 02/24/17 06:21 Dose: 5,000 unit Hydrocortisone (Anusol 2.5% Hc Cream -) 1 applic TP BID [facility] Last Admin: 02/23/17 22:49 Dose: 1 applic Ceftriaxone Sodium 2 gm/ (Dextrose) 100 mls @ 200 mls/hr IVPB DAILY [facility] Lactobacillus Acidophilus (Bacid -) 1 tab PO DAILY [facility] Last Admin: 02/23/17 11:17 Dose: 1 tab Levothyroxine Sodium (Synthroid -) 75 mcg PO AM [facility] Last Admin: 02/24/17 06:21 Dose: 75 mcg Losartan Potassium (Cozaar -) 50 mg PO DAILY [facility] Last Admin: 02/23/17 11:17 Dose: 50 mg Oxycodone HCl (Roxicodone -) 10 mg PO Q4H PRN PRN Reason: PAIN Last Admin: 02/23/17 14:46 Dose: 10 mg Senna (Senna -) 2 tab PO HS PRN PRN Reason: CONSTIPATION Last Admin: 02/22/17 22:51 Dose: 2 tab Silver Sulfadiazine (Silvadene -) 1 applic TP DAILY [facility] Last Admin: 02/23/17 11:18 Dose: 1 applic - Objective Vital Signs: Vital Signs Temperature 98.4 F 02/24/17 06:00 Pulse Rate 85 02/24/17 06:00 Respiratory Rate 18 02/24/17 06:00 Blood Pressure 110/47 02/24/17 06:00 O2 Sat by Pulse Oximetry (%) 97 02/23/17 21:00 Constitutional: Yes: No Distress, Calm Eyes: Yes: Conjunctiva Clear, EOM Intact Cardiovascular: Yes: Regular Rate and Rhythm, S1, S2. No: Murmur Respiratory: Yes: Regular, CTA Bilaterally. No: Rales, Rhonchi, Wheezes Gastrointestinal: Yes: Normal Bowel Sounds, Soft, Abdomen, Obese. No: Distention, Tenderness Edema: Yes Edema: LLE: 3+, RLE: 3+ Problem List - Problems (1) Sepsis Assessment/Plan: -urology assessment for possible obstructive uropathy as source of fevers, elevated WBC Code(s): A41.9 - SEPSIS, UNSPECIFIED ORGANISM (2) Edema due to congestive heart failure Assessment/Plan: -cont diuretics Code(s): I50.9 - HEART FAILURE, UNSPECIFIED (3) Anemia Assessment/Plan: -if hbg less than 8 will give blood transfusion Code(s): D64.9 - ANEMIA, UNSPECIFIED Qualifiers: Anemia type: unspecified type Qualified Code(s): D64.9 - Anemia, unspecified (4) Buttock wound Assessment/Plan: -getting packing for treatment -start Silvadene for leg wound -Santyl for foot ulcer (will need to f/u with wound care clinic after hospitalization) Code(s): S31.809A - UNSPECIFIED OPEN WOUND OF UNSPECIFIED BUTTOCK, INIT ENCNTR Qualifiers: Encounter type: initial encounter Laterality: right Qualified Code( s): S31.819A - Unspecified open wound of right buttock, initial encounter (5) Cellulitis Assessment/Plan: -on ceftriaxone Code(s): L03.90 - CELLULITIS, UNSPECIFIED Qualifiers: Site of cellulitis: extremity Site of cellulitis of extremity: lower extremity Laterality: right Qualified Code(s): L03.115 - Cellulitis of right lower limb (6) DM Diabetes mellitus Assessment/Plan: -currently controlled blood sugar off medications Code(s): E11.9 - TYPE 2 DIABETES MELLITUS WITHOUT COMPLICATIONS (7) HTN (hypertension) Assessment/Plan: -on cozaar Code(s): I10 - ESSENTIAL (PRIMARY) HYPERTENSION (8) Hypothyroid Assessment/Plan: -on synthroid Code(s): E03.9 - HYPOTHYROIDISM, UNSPECIFIED (9) Hypoxia Assessment/Plan: -cont O2 (on home O2 as well) Code(s): R09.02 - HYPOXEMIA (10) UTI (urinary tract infection) Assessment/Plan: -on ceftriaxone currently -will recheck urine Code(s): N39.0 - URINARY TRACT INFECTION, SITE NOT SPECIFIED Qualifiers: Urinary tract infection type: acute cystitis Hematuria presence: without hematuria Qualified Code(s): N30.00 - Acute cystitis without hematuria (11) Obstructive uropathy Assessment/Plan: -urology to consult Code(s): N13.9 - OBSTRUCTIVE AND REFLUX UROPATHY, UNSPECIFIED (12) HLD (hyperlipidemia) Assessment/Plan: -on lipitor Code(s): E78.5 - HYPERLIPIDEMIA, UNSPECIFIED Assessment/Plan Current Active Problems Edema due to congestive heart failure (Acute)
[2017-02-24 08:47] LABS: ALBUMIN 1.6 g/dl (3.4-5.0); ANION GAP 8 (8-16); BILIRUBIN,TOTAL 0.5 mg/dL (0.2-1.0); CALCIUM 7.5 mg/dL (8.5-10.1); CO2 32 mmol/L (21-32); CREATININE 0.5 mg/dL (0.55-1.02); GLUCOSE,RANDOM 92 mg/dL (74-106); SGOT/AST 7 U/L (15-37); SGPT/ALT 12 U/L (12-78); TOT PROT 4.8 g/dl (6.4-8.2)
[2017-02-24 08:48] LABS: ALK PHOS 78 U/L (45-117)
[2017-02-24 09:25] LABS: URINE APPEARANCE CLEAR; URINE BILIRUBIN NEGATIVE (NEGATIVE); URINE BLOOD 1+ (NEGATIVE); URINE COLOR STRAW; URINE GLUCOSE (UA) NEGATIVE (NEGATIVE); URINE KETONE NEGATIVE (NEGATIVE); URINE NITRITE NEGATIVE (NEGATIVE); URINE PROTEIN NEGATIVE (NEGATIVE); URINE UROBILINOGEN NEGATIVE mg/dL (0.2-1.0)
[2017-02-24 09:29] LABS: URINE LEUK ESTERASE 3+ (NEGATIVE)
[2017-02-24 09:32] LABS: URINE BACTERIA FEW /hpf (NONE SEEN); URINE MUCUS RARE; URINE RBC 1 /hpf (0-3); URINE WBC 15 /hpf (3-5)
[2017-02-24] MEDS ORDERED: CEFTRIAXONE 2 GM in DEXTROSE 5%-WATER 100 ML IVPB SCH (10:00)
[2017-02-24] MEDS ORDERED: DEXTROSE 5%-WATER 100 ML IVPB ONE (10:11)
[2017-02-24] MEDS: ACETAMINOPHEN 325 MG TABLET (FP) PO PRN ×2 (10:21→15:36)
[2017-02-24] MEDS: oxyCODONE HCL 5 MG TABLET PO PRN ×3 (10:21→22:34)
[2017-02-24] MEDS: SILVER SULFADIAZINE 1% TOP CREAM 50 GM JAR TP SCH (10:22)
[2017-02-24] MEDS: FUROSEMIDE 40 MG TABLET (FP) PO SCH (10:22)
[2017-02-24] MEDS: DOCUSATE SODIUM 100 MG CAPSULE (FP) PO PRN ×2 (10:22→22:34)
[2017-02-24] MEDS: LACTOBACILLUS ACIDOPHILUS 1 EACH TAB (FP) PO SCH (10:22)
[2017-02-24] MEDS: ASPIRIN 81 MG CHEWABLE TABLETS PO SCH (10:22)
[2017-02-24] MEDS: HYDROCORTISONE 2.5% TOPICAL CREAM 30 GM TUBE TP SCH ×2 (10:22→22:26)
[2017-02-24] MEDS: COLLAGENASE CLOSTRIDIUM HIST. 30 GRAMS TUBE TP SCH (10:23)
[2017-02-24] MEDS: LOSARTAN POTASSIUM 50 MG TABLET (FP) PO SCH (11:17)
[2017-02-24] MEDS: LEVOFLOXACIN 500 MG IVPB 100 ML IVPB SCH (15:37)
[2017-02-24] MEDS ORDERED: PT OWN MED DRAWER 7, Y5N ONE (20:47)
[2017-02-24] MEDS: ATORVASTATIN CA 20 MG TABLET (FP) PO SCH (22:26)
[2017-02-24] MEDS: SENNOSIDES 8.6MG TABLET (FP) PO PRN (22:34)
[2017-02-25] MEDS: LEVOTHYROXINE NA 75 MCG TABLET (FP) PO SCH (06:06)
[2017-02-25] MEDS: HEPARIN NA (PORCINE) 5,000 UNITS/ML 1ML VIAL SQ SCH ×3 (06:06→21:55)
[2017-02-25] MEDS ORDERED: PT OWN MED DRAWER 7, Y5N ONE (10:16)
[2017-02-25] MEDS: FUROSEMIDE 40 MG TABLET (FP) PO SCH (10:22)
[2017-02-25] MEDS: LACTOBACILLUS ACIDOPHILUS 1 EACH TAB (FP) PO SCH (10:22)
[2017-02-25] MEDS: ASPIRIN 81 MG CHEWABLE TABLETS PO SCH (10:22)
[2017-02-25] MEDS: HYDROCORTISONE 2.5% TOPICAL CREAM 30 GM TUBE TP SCH ×2 (10:23→21:56)
[2017-02-25] MEDS: LOSARTAN POTASSIUM 50 MG TABLET (FP) PO SCH (10:23)
[2017-02-25] MEDS: LEVOFLOXACIN 500 MG IVPB 100 ML IVPB SCH (10:23)
[2017-02-25] MEDS: NYSTATIN POWDER 100,000 UNITS/GM - 15 GM TOPICAL POWDER TP SCH (10:24)
[2017-02-25] MEDS: SILVER SULFADIAZINE 1% TOP CREAM 50 GM JAR TP SCH (10:25)
[2017-02-25] MEDS: COLLAGENASE CLOSTRIDIUM HIST. 30 GRAMS TUBE TP SCH (10:26)
--- NOTE | 2017-02-25 11:04 | PN ---
Progress Note, Physician History of Present Illness: Patient feeling better after blood transfusion yesterday. Leg swelling improved. - Current Medication List Current Medications: Active Medications Aspirin (Asa -) 81 mg PO DAILY [facility] Last Admin: 02/25/17 10:22 Dose: 81 mg Atorvastatin Calcium (Lipitor -) 40 mg PO HS [facility] Last Admin: 02/24/17 22:26 Dose: 40 mg Collagenase (Santyl -) 1 applic TP DAILY [facility] Last Admin: 02/25/17 10:26 Dose: 1 applic Docusate Sodium (Colace -) 100 mg PO Q8H PRN PRN Reason: CONSTIPATION Last Admin: 02/24/17 22:34 Dose: 100 mg Furosemide (Lasix -) 40 mg PO DAILY [facility] Last Admin: 02/25/17 10:22 Dose: 40 mg Heparin Sodium (Porcine) (Heparin -) 5,000 unit SQ TID [facility] Last Admin: 02/25/17 06:06 Dose: 5,000 unit Hydrocortisone (Anusol 2.5% Hc Cream -) 1 applic TP BID [facility] Last Admin: 02/25/17 10:23 Dose: 1 applic Levofloxacin (Levaquin 500 Mg Premixed Ivpb -) 100 mls @ 100 mls/hr IVPB DAILY [facility] Last Admin: 02/25/17 10:23 Dose: 100 mls/hr Lactobacillus Acidophilus (Bacid -) 1 tab PO DAILY [facility] Last Admin: 02/25/17 10:22 Dose: 1 tab Levothyroxine Sodium (Synthroid -) 75 mcg PO AM [facility] Last Admin: 02/25/17 06:06 Dose: 75 mcg Losartan Potassium (Cozaar -) 50 mg PO DAILY [facility] Last Admin: 02/25/17 10:23 Dose: 50 mg Nystatin (Nystop Powder -) 1 applic TP DAILY [facility] Last Admin: 02/25/17 10:24 Dose: 1 applic Oxycodone HCl (Roxicodone -) 10 mg PO Q4H PRN PRN Reason: PAIN Last Admin: 02/24/17 22:34 Dose: 10 mg Senna (Senna -) 2 tab PO HS PRN PRN Reason: CONSTIPATION Last Admin: 02/24/17 22:34 Dose: 2 tab Silver Sulfadiazine (Silvadene -) 1 applic TP DAILY [facility] Last Admin: 02/25/17 10:25 Dose: 1 applic - Objective Vital Signs: Vital Signs Temperature 98.9 F 02/25/17 06:00 Pulse Rate 75 02/25/17 06:00 Respiratory Rate 18 02/25/17 06:00 Blood Pressure 112/43 02/25/17 06:00 O2 Sat by Pulse Oximetry (%) 96 02/24/17 21:00 Constitutional: Yes: No Distress, Calm Cardiovascular: Yes: Regular Rate and Rhythm, S1, S2. No: Murmur Respiratory: Yes: Regular, CTA Bilaterally. No: Rales, Rhonchi, Wheezes Gastrointestinal: Yes: Normal Bowel Sounds, Soft. No: Distention, Tenderness Extremities: Yes: Other (dressing on left foot) Edema: Yes Edema: LLE: Trace, RLE: Trace Neurological: Yes: Alert, Oriented Labs: CBC, BMP 02/24/17 07:00 02/24/17 07:00 Problem List - Problems (1) Sepsis Assessment/Plan: -abx changed to levaquin now, as UA appears infection present even with Ceftriaxone Code(s): A41.9 - SEPSIS, UNSPECIFIED ORGANISM (2) Edema due to congestive heart failure Assessment/Plan: -cont diuretics Code(s): I50.9 - HEART FAILURE, UNSPECIFIED (3) Anemia Assessment/Plan: -follow blood counts Code(s): D64.9 - ANEMIA, UNSPECIFIED Qualifiers: Anemia type: unspecified type Qualified Code(s): D64.9 - Anemia, unspecified (4) Buttock wound Assessment/Plan: -getting packing for treatment -on Silvadene for leg wound -Santyl for foot ulcer (will need to f/u with wound care clinic after hospitalization) -to need SNF again after hospitalization, as advised minimal weight-bearing on left foot to allow for ulcer to heal Code(s): S31.809A - UNSPECIFIED OPEN WOUND OF UNSPECIFIED BUTTOCK, INIT ENCNTR Qualifiers: Encounter type: initial encounter Laterality: right Qualified Code( s): S31.819A - Unspecified open wound of right buttock, initial encounter (5) Cellulitis Assessment/Plan: -now on levaquin, cellulitis appears resolved though Code(s): L03.90 - CELLULITIS, UNSPECIFIED Qualifiers: Site of cellulitis: extremity Site of cellulitis of extremity: lower extremity Laterality: right Qualified Code(s): L03.115 - Cellulitis of right lower limb (6) DM Diabetes mellitus Assessment/Plan: -currently controlled blood sugar off medications Code(s): E11.9 - TYPE 2 DIABETES MELLITUS WITHOUT COMPLICATIONS (7) HTN (hypertension) Assessment/Plan: -on cozaar Code(s): I10 - ESSENTIAL (PRIMARY) HYPERTENSION (8) Hypothyroid Assessment/Plan: -on synthroid Code(s): E03.9 - HYPOTHYROIDISM, UNSPECIFIED (9) Hypoxia Assessment/Plan: -cont O2 (on home O2 as well) Code(s): R09.02 - HYPOXEMIA (10) UTI (urinary tract infection) Assessment/Plan: -now on levaquin Code(s): N39.0 - URINARY TRACT INFECTION, SITE NOT SPECIFIED Qualifiers: Urinary tract infection type: acute cystitis Hematuria presence: without hematuria Qualified Code(s): N30.00 - Acute cystitis without hematuria (11) Obstructive uropathy Assessment/Plan: -urology to consult Code(s): N13.9 - OBSTRUCTIVE AND REFLUX UROPATHY, UNSPECIFIED (12) HLD (hyperlipidemia) Assessment/Plan: -on lipitor Code(s): E78.5 - HYPERLIPIDEMIA, UNSPECIFIED Assessment/Plan Current Active Problems Edema due to congestive heart failure (Acute)
[2017-02-25 11:46] LABS: BASOPHIL 0.3 % (0-2.0); EOSINOPHIL 5.1 % (0-4.5); MCH 26.1 pg (25.7-33.7); MCHC 31.7 g/dl (32.0-36.0); MEAN CELL VOLUME 82.2 fl (80-96); MEAN PLT VOLUME 7.3 fl (7.5-11.1); NEUTROPHILS 75.6 % (42.8-82.8); PLATELET COUNT 455 K/MM3 (134-434); RDW 17.3 % (11.6-15.6)
--- NOTE | 2017-02-25 12:17 | PN ---
Progress Note (short form) - Note Progress Note: urology note 71f h/o LE trauma, COPD, DM,HTN, CHF, recurrent UTI. found w non obstructing R renal stones and increase in size of LT hydrouretronephrosis form previous studies. pt will needed cystoscopy , Lt retrograde pyelogram and left laser lithotripsy when medically stable.
[2017-02-25 12:22] LABS: ANION GAP 5 (8-16); CALCIUM 7.4 mg/dL (8.5-10.1); CO2 37 mmol/L (21-32); CREATININE 0.5 mg/dL (0.55-1.02); GLUCOSE,RANDOM 128 mg/dL (74-106)
[2017-02-25] MEDS ORDERED: TAMSULOSIN HCL 0.4 MG CAP.ER.24H (FP) PO ONE (12:30)
[2017-02-25] MEDS: oxyCODONE HCL 5 MG TABLET PO PRN ×2 (14:25→21:57)
[2017-02-25] MEDS: POLYETHYLENE GLYCOL 3350 119 GM BTL PO SCH (21:56)
[2017-02-25] MEDS: ATORVASTATIN CA 20 MG TABLET (FP) PO SCH (21:56)
[2017-02-26] MEDS: LEVOTHYROXINE NA 75 MCG TABLET (FP) PO SCH (06:25)
[2017-02-26] MEDS: HEPARIN NA (PORCINE) 5,000 UNITS/ML 1ML VIAL SQ SCH ×3 (06:25→21:57)
[2017-02-26 07:54] LABS: BASOPHIL 0.3 % (0-2.0); EOSINOPHIL 5.4 % (0-4.5); MCH 26.1 pg (25.7-33.7); MCHC 31.4 g/dl (32.0-36.0); MEAN CELL VOLUME 83.1 fl (80-96); MEAN PLT VOLUME 7.4 fl (7.5-11.1); NEUTROPHILS 65.2 % (42.8-82.8); PLATELET COUNT 455 K/MM3 (134-434); RDW 17.2 % (11.6-15.6); WHITE BLOOD COUNT 8.1 K/mm3 (4.0-10.0)
[2017-02-26 08:37] LABS: ANION GAP 5 (8-16); CALCIUM 7.5 mg/dL (8.5-10.1); CO2 38 mmol/L (21-32); CREATININE 0.5 mg/dL (0.55-1.02); GLUCOSE,RANDOM 113 mg/dL (74-106)
[2017-02-26] MEDS ORDERED: PT OWN MED DRAWER 7, Y5N ONE (10:54)
[2017-02-26] MEDS: LOSARTAN POTASSIUM 50 MG TABLET (FP) PO SCH (11:02)
[2017-02-26] MEDS: ASPIRIN 81 MG CHEWABLE TABLETS PO SCH (11:02)
[2017-02-26] MEDS: LACTOBACILLUS ACIDOPHILUS 1 EACH TAB (FP) PO SCH (11:02)
[2017-02-26] MEDS: LEVOFLOXACIN 500 MG IVPB 100 ML IVPB SCH (11:02)
[2017-02-26] MEDS: FUROSEMIDE 40 MG TABLET (FP) PO SCH (11:02)
[2017-02-26] MEDS: POLYETHYLENE GLYCOL 3350 119 GM BTL PO SCH ×2 (11:04→21:58)
[2017-02-26] MEDS: NYSTATIN POWDER 100,000 UNITS/GM - 15 GM TOPICAL POWDER TP SCH (11:05)
[2017-02-26] MEDS: HYDROCORTISONE 2.5% TOPICAL CREAM 30 GM TUBE TP SCH ×2 (11:05→21:57)
[2017-02-26] MEDS: SILVER SULFADIAZINE 1% TOP CREAM 50 GM JAR TP SCH (11:06)
[2017-02-26] MEDS: COLLAGENASE CLOSTRIDIUM HIST. 30 GRAMS TUBE TP SCH (11:06)
--- NOTE | 2017-02-26 12:00 | PN ---
Progress Note (short form) - Note Progress Note: Podiatry F/U: Seen/evaluated at bedside, NAD. Pain improved to b/l LEs, denies F/V/N/C/SOB/ CP. Getting santyl for local wound care Rx. AFebrile, VSS. MASON: R foot: plantar heel DM ulcer with mixed fibrogranular base, hyperkeratotic borders, no probing to bone, no purulence, no fluctuance, no soft tissue crepitus, minimal tenderness to palpation. B/L lower leg cellulitis markedly improved. WBC: 8.1 Blood Cx: no growth Imp: 71 year old DM F with R heel DM ulcer 1. C/w local wound care Rx with santyl 2. Heel offloading measures 3. Glycemic control 4. Upon discharge, will f/u with me in [facility] 5. No podiatric surgical intervention. Pallavi Rhodes DPM
--- NOTE | 2017-02-26 12:17 | PN ---
Progress Note, Physician Chief Complaint: Ms Vázquez says she is doing better. Says her legs are now normal. No cp, sob, n /v. - Current Medication List Current Medications: Active Medications Ascorbic Acid (Vitamin C -) 500 mg PO DAILY [facility] Aspirin (Asa -) 81 mg PO DAILY [facility] Last Admin: 02/26/17 11:02 Dose: 81 mg Atorvastatin Calcium (Lipitor -) 40 mg PO HS [facility] Last Admin: 02/25/17 21:56 Dose: 40 mg Collagenase (Santyl -) 1 applic TP DAILY [facility] Last Admin: 02/26/17 11:06 Dose: 1 applic Docusate Sodium (Colace -) 100 mg PO Q8H PRN PRN Reason: CONSTIPATION Last Admin: 02/24/17 22:34 Dose: 100 mg Furosemide (Lasix -) 40 mg PO DAILY [facility] Last Admin: 02/26/17 11:02 Dose: 40 mg Heparin Sodium (Porcine) (Heparin -) 5,000 unit SQ TID [facility] Last Admin: 02/26/17 06:25 Dose: 5,000 unit Hydrocortisone (Anusol 2.5% Hc Cream -) 1 applic TP BID [facility] Last Admin: 02/26/17 11:05 Dose: 1 applic Levofloxacin (Levaquin 500 Mg Premixed Ivpb -) 100 mls @ 100 mls/hr IVPB DAILY [facility] Last Admin: 02/26/17 11:02 Dose: 100 mls/hr Lactobacillus Acidophilus (Bacid -) 1 tab PO DAILY [facility] Last Admin: 02/26/17 11:02 Dose: 1 tab Levothyroxine Sodium (Synthroid -) 75 mcg PO AM [facility] Last Admin: 02/26/17 06:25 Dose: 75 mcg Losartan Potassium (Cozaar -) 50 mg PO DAILY [facility] Last Admin: 02/26/17 11:02 Dose: 50 mg Multivitamins/Minerals/Vitamin C (Tab-A-Vit -) 1 tab PO DAILY [facility] Nystatin (Nystop Powder -) 1 applic TP DAILY [facility] Last Admin: 02/26/17 11:05 Dose: 1 applic Polyethylene Glycol (Miralax (For Daily Use) -) 17 gm PO BID [facility] Last Admin: 02/26/17 11:04 Dose: Not Given Senna (Senna -) 2 tab PO HS PRN PRN Reason: CONSTIPATION Last Admin: 02/24/17 22:34 Dose: 2 tab Silver Sulfadiazine (Silvadene -) 1 applic TP DAILY [facility] Last Admin: 02/26/17 11:06 Dose: 1 applic - Objective Vital Signs: Vital Signs Temperature 36.7 C 02/26/17 10:00 Pulse Rate 77 02/26/17 10:00 Respiratory Rate 20 02/26/17 10:00 Blood Pressure 136/92 02/26/17 10:00 O2 Sat by Pulse Oximetry (%) 94 L 02/25/17 21:00 Constitutional: Yes: Calm, Obese Cardiovascular: Yes: Regular Rate and Rhythm. No: Gallop, Murmur, Rub Respiratory: Yes: Regular, CTA Bilaterally. No: Rales, Rhonchi, Wheezes Gastrointestinal: Yes: Normal Bowel Sounds, Soft. No: Distention, Tenderness Extremities: Yes: Other (R heel wrapped). No: Erythema Edema: No Labs: CBC, BMP 02/26/17 06:00 02/26/17 06:00 Assessment/Plan 1. Cellulitis -cellulitis resolved -appreciate ID assistance -now on levaquin for UTI 2. UTI -patient found to have UTI, possible source of sepsis -continue levaquin 3. Nephrolithiasis with hydronephrosis -appreciate urology assistance -will need cystoscopy and L lithotripsy -consult cardiology for medical clearance 4. Sepsis -resolved 5. Buttock wound -wound care following 6. Dependent edema -continue lasix 40mg daily -cardiology consult 7. HTN -well controlled -continue cozaar 8. Hypothyroid -continue synthroid 9. HLD -continue statin
[2017-02-26] MEDS ORDERED: TAMSULOSIN HCL 0.4 MG CAP.ER.24H (FP) PO ONE (13:15)
--- NOTE | 2017-02-26 13:15 | PN ---
Progress Note (short form) - Note Progress Note: pt for lull with jj in am due to hydronepherosis vand stasis of stone pt on flomax with no help npo p mn for or in am
--- NOTE | 2017-02-26 15:02 | CON.CARD ---
Consult Consult Specialty:: cardio Referred by:: ricco Reason for Consultation:: preop, chf - History of Present Illness Chief Complaint: leg swelling History of Present Illness: 71 yo female admitted with leg swelling, hydronephrosis. says leg swelling has gone down significantly, and she denies any sob at rest in bed, orthopnea or PND. she is preop for tomorrow for cysto and lithotripsy PMH: anemia diast chf HTN HPL - Past Medical History Cardio/Vascular: Yes: CHF, HTN Pulmonary: Yes: COPD, Sleep Apnea Renal/: Yes: Renal Calculi (s/p lithotripsy) Musculoskeletal: Yes: Chronic low back pain Endocrine: Yes: Diabetes Mellitus, Hypothyroidism, Other (morbid obesity) Additional Medical History: MRSA/Pseudomonas in her left foot ulcer that has healed - Past Surgical History Past Surgical History: Yes: Joint Replacement (left knee (partial replacement)) - Alcohol/Substance Use Hx Alcohol Use: No History of Substance Use: reports: None - Smoking History Smoking history: Former smoker Have you smoked in the past 12 months: No Aproximately how many cigarettes per day: 1 If you are a former smoker, when did you quit?: 1981 - Social History Usual Living Arrangement: Other () ADL: Support Services 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 History of Recent Travel: No Home Medications - Allergies Allergies/Adverse Reactions: Allergies Allergy/AdvReac Type Severity Reaction Status Date / Time codeine [Codeine] Allergy Verified 02/21/17 12:13 shellfish derived Allergy Verified 02/21/17 12:13 tramadol AdvReac Mild Verified 02/21/17 12:13 - Home Medications Home Medications: Ambulatory Orders Garlic 100 mg PO DAILY 12/11/16 Levothyroxine [Synthroid -] 75 mcg PO DAILY 12/11/16 [place]-3 Fatty Acids/Fish Oil [Fish Oil 1,000 mg Softgel] 1 each PO DAILY Oxycodone HCl 10 mg PO ASDIR 12/11/16 Simvastatin 40 mg PO DAILY 12/11/16 Torsemide 20 mg PO DAILY 12/11/16 Potassium Chloride [K-Dur -] 10 meq PO DAILY tab.ec 12/17/16 Aspirin [ASA -] 81 mg PO DAILY 02/21/17 Losartan Potassium [Cozaar -] 50 mg PO DAILY 02/21/17 Family Disease History - Family Disease History Family Disease History: Heart Disease: Mother ( 90's: CAD/Dementia), CA: Father ( in late 80's: h/o colon ca), Other: Brother (Alive: HTN/DM II) Review of Systems - Review of Systems Constitutional: denies: Chills, Fever Eyes: denies: Eye Pain HENT: denies: Nasal Congestion Neck: denies: Stiffness Cardiovascular: denies: Palpitations Respiratory: denies: Orthopnea, PND Gastrointestinal: denies: Diarrhea, Rectal Bleeding Genitourinary: denies: Burning, Hematuria Musculoskeletal: denies: Muscle Pain Integumentary: denies: Rash Neurological: denies: Numbness, Seizure, Syncope Endocrine: denies: Excessive Sweating Hematology/Lymphatic: denies: Excessive Bleeding Vital Signs: Vital Signs Temperature 98.4 F 02/26/17 14:53 Pulse Rate 72 02/26/17 14:53 Respiratory Rate 16 02/26/17 14:53 Blood Pressure 128/82 02/26/17 14:53 O2 Sat by Pulse Oximetry (%) 94 L 02/25/17 21:00 Constitutional: Yes: Well Nourished, No Distress Eyes: No: Sclera Icterus HENT: No: Nasal Congestion Neck: No: Decreased ROM Respiratory: Yes: CTA Bilaterally, Diminished (R base). No: Accessory Muscle Use, Rales, Wheezes Gastrointestinal: Yes: Normal Bowel Sounds. No: Distention, Hepatomegaly, Palpable Mass, Tenderness Cardiovascular: Yes: Regular Rate and Rhythm JVD: Yes Carotid Bruit: No PMI: Non-Displaced Heart Sounds: Yes: S1, S2. No: Gallop Murmur: No: Systolic Murmur, Diastolic Murmur Musculoskeletal: Yes: Other (No kyphosis) Extremities: No: Cold, Cyanosis Edema: No Peripheral Pulses: 2+ Left Carotid, 2+ Right Carotid, 2+ Left Doralis Pedis, 2+ Right Dorsalis Pedis Integumentary: No: Jaundice Neurological: Yes: Alert, Oriented (x3) Psychiatric: No: Agitated - Other Data Labs, Other Data: CBC, BMP 02/26/17 06:00 02/26/17 06:00 Assessment/Plan stress MPI 06/08: no ischemic EKG changes. nl perfusion. EF 45%, global. Echo 10/2016: tds; low nl lvef, nl rv, mild lae, mod tr, rvsp 40-50 Echo 02/2016: suboptimal. grossly nl lv size. Mild-mod LV dysfunction. RV not well seen. Mild ARLYN. Mod TR. RVSP 40-50. Small effusion < 1 cm. CXR 02/22: "increasing congestive changes". my review = probable mild chf/ vascular redistribution, unchanged vs 02/21 and 12/11 ECG 02/21/17: sinus arrhythmia plus APCs; normal axis/intervals; no path q's or ST-T abn acute on chronic diast chf: - preserved LVEF (11/07 echo) with no signif valve dysfunction and only mild-mod pulm HTN then - episode chf 06/08, EF mildly reduced then, diuresed in hospital - 12/08 here--held losartan bc bp low, possible ongoing bleed. - still with dependent edema at that time, sent home on torsemide 20mg qd - currently with signif improvement in edema vs admit per pt, no sob. however suspect probable JVD on exam and cxr likely with chronic mild chf findings - lasix 40mg ivp x 1 today--reassess daily for lasix requirements HTN - bp controlled, stable - cont current mgmt anemia: - hgb in 6s on admit, s/p prbcs with improvement in hgb - refused scopes at that time (despite GI recs) - again hgb down to 6's, s/p transufion she is in 8s - per pmd HLD - con't home statin regimen nephrolithiasis with hydronephrosis: - per preop CV eval: - RCRI = 1, ? functional status - for intermediate risk surgery (cysto/lithotripsy) - no ischemia 06/08 nuclear stress test - no severe pulm HTN or valve dz on echo recently - diast CHF is well-compensated, likely with mildly volume up but stable vs priors - will give one dose lasix 40mg ivp today, but she is not at high risk for severe chf decompensation perioperatively--limit fluids administration as possible, and low threshold for IVP lasix postop if any sob or changes in lung exam
[2017-02-26] MEDS: oxyCODONE HCL 5 MG TABLET PO PRN ×2 (15:07→21:58)
[2017-02-26] MEDS ORDERED: FUROSEMIDE 40 MG/4 ML INJECTABLE VIAL IVPUSH ONE (17:21)
[2017-02-26] MEDS: AMINO ACIDS/PROTEIN HYDROLYS 30 ML LIQUID.PKT PO SCH (18:52)
[2017-02-26] MEDS: ATORVASTATIN CA 20 MG TABLET (FP) PO SCH (21:57)
[2017-02-27] MEDS: HEPARIN NA (PORCINE) 5,000 UNITS/ML 1ML VIAL SQ SCH ×3 (05:54→22:03)
[2017-02-27] MEDS: LEVOTHYROXINE NA 75 MCG TABLET (FP) PO SCH (06:12)
[2017-02-27 08:53] LABS: BASOPHIL 0.3 % (0-2.0); EOSINOPHIL 5.5 % (0-4.5); MCH 25.9 pg (25.7-33.7); MCHC 31.3 g/dl (32.0-36.0); MEAN CELL VOLUME 82.8 fl (80-96); MEAN PLT VOLUME 7.4 fl (7.5-11.1); NEUTROPHILS 64.3 % (42.8-82.8); PLATELET COUNT 433 K/MM3 (134-434); RDW 17.5 % (11.6-15.6); WHITE BLOOD COUNT 7.7 K/mm3 (4.0-10.0)
[2017-02-27] MEDS: LOSARTAN POTASSIUM 50 MG TABLET (FP) PO SCH ×2 (09:04→09:10)
[2017-02-27] MEDS: LACTOBACILLUS ACIDOPHILUS 1 EACH TAB (FP) PO SCH (09:04)
[2017-02-27] MEDS: MULTIVITAMINS (DAILY MVI) TABLET (FP) PO SCH (09:04)
[2017-02-27] MEDS: ASCORBIC ACID 500 MG TABLET (FP) PO SCH (09:04)
[2017-02-27] MEDS: LEVOFLOXACIN 500 MG IVPB 100 ML IVPB SCH (09:04)
[2017-02-27] MEDS: FUROSEMIDE 40 MG TABLET (FP) PO SCH (09:04)
[2017-02-27] MEDS: AMINO ACIDS/PROTEIN HYDROLYS 30 ML LIQUID.PKT PO SCH ×2 (09:04→17:48)
[2017-02-27 09:13] LABS: ANION GAP 5 (8-16); CALCIUM 7.8 mg/dL (8.5-10.1); CO2 40 mmol/L (21-32); CREATININE 0.5 mg/dL (0.55-1.02); GLUCOSE,RANDOM 112 mg/dL (74-106); MAGNESIUM 1.9 mg/dL (1.8-2.4); PHOSPHOROUS 3.3 mg/dL (2.5-4.9)
--- NOTE | 2017-02-27 10:20 | PN ---
Progress Note (short form) - Note Progress Note: pt for or today yajaira jeffrey npo will follow
[2017-02-27] MEDS: ASPIRIN 81 MG CHEWABLE TABLETS PO SCH (10:39)
[2017-02-27] MEDS: SILVER SULFADIAZINE 1% TOP CREAM 50 GM JAR TP SCH ×2 (10:51→15:21)
[2017-02-27] MEDS: COLLAGENASE CLOSTRIDIUM HIST. 30 GRAMS TUBE TP SCH ×2 (10:52→15:20)
[2017-02-27] MEDS: NYSTATIN POWDER 100,000 UNITS/GM - 15 GM TOPICAL POWDER TP SCH (10:53)
[2017-02-27] MEDS: HYDROCORTISONE 2.5% TOPICAL CREAM 30 GM TUBE TP SCH ×2 (10:54→22:10)
[2017-02-27] MEDS: POLYETHYLENE GLYCOL 3350 119 GM BTL PO SCH ×2 (11:53→21:52)
[2017-02-27] MEDS: oxyCODONE HCL 5 MG TABLET PO PRN ×2 (13:30→23:51)
--- NOTE | 2017-02-27 15:11 | PN ---
Progress Note, Physician Chief Complaint: Ms Vázquez complains of pain after being moved around. Now is better but says she is not comfortable. No cp, sob, n/v. - Current Medication List Current Medications: Active Medications Amino Acids (Prosource No Carb Liquid Pkt) 30 ml PO BID@0800,1730 [facility] Last Admin: 02/27/17 09:04 Dose: 30 ml Ascorbic Acid (Vitamin C -) 500 mg PO DAILY [facility] Last Admin: 02/27/17 09:04 Dose: 500 mg Aspirin (Asa -) 81 mg PO DAILY [facility] Last Admin: 02/27/17 10:39 Dose: Not Given Atorvastatin Calcium (Lipitor -) 40 mg PO HS [facility] Last Admin: 02/26/17 21:57 Dose: 40 mg Collagenase (Santyl -) 1 applic TP DAILY [facility] Docusate Sodium (Colace -) 100 mg PO Q8H PRN PRN Reason: CONSTIPATION Last Admin: 02/24/17 22:34 Dose: 100 mg Furosemide (Lasix -) 40 mg PO DAILY [facility] Last Admin: 02/27/17 09:04 Dose: 40 mg Heparin Sodium (Porcine) (Heparin -) 5,000 unit SQ TID [facility] Last Admin: 02/27/17 13:45 Dose: Not Given Hydrocortisone (Anusol 2.5% Hc Cream -) 1 applic TP BID [facility] Last Admin: 02/27/17 10:54 Dose: 1 applic Levofloxacin (Levaquin 500 Mg Premixed Ivpb -) 100 mls @ 100 mls/hr IVPB DAILY [facility] Last Admin: 02/27/17 09:04 Dose: 100 mls/hr Lactobacillus Acidophilus (Bacid -) 1 tab PO DAILY [facility] Last Admin: 02/27/17 09:04 Dose: 1 tab Levothyroxine Sodium (Synthroid -) 75 mcg PO AM [facility] Last Admin: 02/27/17 06:12 Dose: 75 mcg Losartan Potassium (Cozaar -) 50 mg PO DAILY [facility] Last Admin: 02/27/17 09:10 Dose: Not Given Multivitamins/Minerals/Vitamin C (Tab-A-Vit -) 1 tab PO DAILY [facility] Last Admin: 02/27/17 09:04 Dose: 1 tab Nystatin (Nystop Powder -) 1 applic TP DAILY [facility] Last Admin: 02/27/17 10:53 Dose: 1 applic Oxycodone HCl (Roxicodone -) 10 mg PO Q4H PRN PRN Reason: PAIN Last Admin: 02/27/17 13:30 Dose: 10 mg Polyethylene Glycol (Miralax (For Daily Use) -) 17 gm PO BID [facility] Last Admin: 02/27/17 11:53 Dose: Not Given Senna (Senna -) 2 tab PO HS PRN PRN Reason: CONSTIPATION Last Admin: 02/24/17 22:34 Dose: 2 tab Silver Sulfadiazine (Silvadene -) 1 applic TP DAILY [facility] - Objective Vital Signs: Vital Signs Temperature 36.5 C 02/27/17 09:36 Pulse Rate 75 02/27/17 11:25 Respiratory Rate 20 02/27/17 09:36 Blood Pressure 111/53 02/27/17 09:36 O2 Sat by Pulse Oximetry (%) 94 L 02/27/17 11:25 Constitutional: Yes: No Distress, Calm, Obese Cardiovascular: Yes: Regular Rate and Rhythm. No: Gallop, Murmur, Rub Respiratory: Yes: Regular, CTA Bilaterally. No: Rales, Rhonchi, Wheezes Gastrointestinal: Yes: Normal Bowel Sounds, Soft. No: Distention, Tenderness Extremities: Yes: WNL Edema: Yes Edema: LLE: 2+, RLE: 2+ Labs: CBC, BMP 02/27/17 06:30 02/27/17 06:30 Assessment/Plan 1. Cellulitis -cellulitis resolved -appreciate ID assistance -now on levaquin for UTI 2. UTI -patient found to have UTI, possible source of sepsis -continue levaquin 3. Nephrolithiasis with hydronephrosis -appreciate urology assistance -planning for OR today for lithotripsy with stent placement 4. Sepsis -resolved 5. Buttock wound -wound care following 6. Dependent edema -continue lasix 40mg daily -cardiology consulted 7. HTN -well controlled -continue cozaar 8. Hypothyroid -continue synthroid 9. HLD -continue statin
--- NOTE | 2017-02-27 15:55 | OP ---
Operative Note - Note: Operative Date: 02/27/17 Pre-Operative Diagnosis: l hydro with ureteral stone. r non obstr stone Operation: lull w jj Implants: jj stent on left Post-Operative Diagnosis: Same as Pre-op Surgeon: Grace Jones Anesthesia: General Drains & Tubes with Location: jj stent Operative Report Dictated: Yes
--- NOTE | 2017-02-27 16:15 | PN ---
Progress Note (short form) - Note Progress Note: stable s.p yajaira jeffrey please resume all preop orders and advance preop diet as tolerated oob inc bradley vitals q 4 iv rocephin 1 gm q 12 dilaufid 2 mg sq q 4 prn will need r/p sono in am also will need outpt rt eswl will follow
[2017-02-27] MEDS ORDERED: MIDAZOLAM HCL 2 MG/2 ML SINGLE DOSE VIAL ONE ×2 (18:09→18:20)
[2017-02-27] MEDS ORDERED: PROPOFOL 20 ML ONE (18:16)
[2017-02-27] MEDS ORDERED: ceFAZolin SODIUM 1 GM VIAL IVPB ONE (18:26)
[2017-02-27] MEDS ORDERED: KETOROLAC TROMETHAMINE 30 MG/1 ML VIAL ONE (18:33)
[2017-02-27] MEDS ORDERED: ceFAZolin SODIUM 1 GM VIAL ONE (18:33)
[2017-02-27] MEDS: ATORVASTATIN CA 20 MG TABLET (FP) PO SCH (22:03)
--- NOTE | 2017-02-28 00:38 | OP ---
DATE OF OPERATION: DATE OF DICTATION: 02/27/2017 PREOPERATIVE DIAGNOSIS: Left hydronephrosis, left ureteral stone, and nonobstructing right renal pelvic stones. OPERATIVE PROCEDURE: Cystourethroscopy, left retrograde pyelogram, left ureteroscopy, left stone retrieval, and placement of a left double-J stent. ANESTHESIA: General. DESCRIPTION OF PROCEDURE: Under the above-stated anesthesia, the patient is prepped and draped in the usual sterile manner. She is placed in the dorsal lithotomy position. Cystoscopy revealed a trabeculated bladder with squamous metaplasia. There was severe bullous edema of the trigone. No lesions or calculi were seen. With some difficulty, the left orifice was seen. No efflux of urine was seen. A Flexi-Tip catheter was placed in the orifice and 5 mL of contrast was injected. This revealed a blockage at the mid ureter with proximal hydroureteronephrosis. A glidewire was passed up the left renal unit. The cystoscope was removed. Ureteroscope was inserted. Ureteroscopy was performed in the usual fashion. Lower ureter was normal. Mid ureter revealed a stone causing complete obstruction of the mid ureteral lumen. Using the laser, this was broken into several fragments. A stone basket was used and several fragments were removed. A continuation of the ureteroscopy revealed a normal renal pelvis. No lesions or stones were seen. The ureteroscope was removed. A 24-cm 6-Malaysian double-J stent was left on the left side. X-rays confirmed good position of the stent. The bladder was emptied. The scope was removed. The patient tolerated the procedure and returned to the recovery room in good condition. Kaylie [id number]
[2017-02-28] MEDS: LEVOTHYROXINE NA 75 MCG TABLET (FP) PO SCH (06:25)
[2017-02-28] MEDS: HEPARIN NA (PORCINE) 5,000 UNITS/ML 1ML VIAL SQ SCH ×3 (06:25→21:48)
[2017-02-28 07:41] LABS: BASOPHIL 0.3 % (0-2.0); EOSINOPHIL 6.2 % (0-4.5); MCH 25.9 pg (25.7-33.7); MCHC 31.6 g/dl (32.0-36.0); MEAN CELL VOLUME 81.9 fl (80-96); MEAN PLT VOLUME 7.3 fl (7.5-11.1); NEUTROPHILS 62.9 % (42.8-82.8); PLATELET COUNT 463 K/MM3 (134-434); RDW 17.1 % (11.6-15.6); WHITE BLOOD COUNT 8.3 K/mm3 (4.0-10.0)
[2017-02-28 08:22] LABS: ANION GAP 7 (8-16); CO2 40 mmol/L (21-32); GLUCOSE,RANDOM 111 mg/dL (74-106)
[2017-02-28 08:25] LABS: CALCIUM 7.8 mg/dL (8.5-10.1); CREATININE 0.6 mg/dL (0.55-1.02); MAGNESIUM 1.9 mg/dL (1.8-2.4)
[2017-02-28] MEDS: AMINO ACIDS/PROTEIN HYDROLYS 30 ML LIQUID.PKT PO SCH ×2 (10:46→17:34)
[2017-02-28] MEDS: ASCORBIC ACID 500 MG TABLET (FP) PO SCH (10:47)
[2017-02-28] MEDS: FUROSEMIDE 40 MG TABLET (FP) PO SCH (10:47)
[2017-02-28] MEDS: LOSARTAN POTASSIUM 50 MG TABLET (FP) PO SCH (10:47)
[2017-02-28] MEDS: LACTOBACILLUS ACIDOPHILUS 1 EACH TAB (FP) PO SCH (10:47)
[2017-02-28] MEDS: MULTIVITAMINS (DAILY MVI) TABLET (FP) PO SCH (10:47)
[2017-02-28] MEDS: ASPIRIN 81 MG CHEWABLE TABLETS PO SCH (10:47)
--- NOTE | 2017-02-28 10:47 | PN ---
Progress Note (short form) - Note Progress Note: Anesthesiology Post-op POD#1 s/p cystoscopy with stent placement under GA. Pt. feels well, VSS, denies pain. No apparent anesthesia-related issues.
[2017-02-28] MEDS: LEVOFLOXACIN 500 MG IVPB 100 ML IVPB SCH (10:48)
[2017-02-28] MEDS: POLYETHYLENE GLYCOL 3350 119 GM BTL PO SCH ×3 (10:48→21:49)
[2017-02-28] MEDS: HYDROCORTISONE 2.5% TOPICAL CREAM 30 GM TUBE TP SCH ×2 (10:48→21:49)
[2017-02-28] MEDS: NYSTATIN POWDER 100,000 UNITS/GM - 15 GM TOPICAL POWDER TP SCH (10:48)
[2017-02-28] MEDS: COLLAGENASE CLOSTRIDIUM HIST. 30 GRAMS TUBE TP SCH (10:49)
[2017-02-28] MEDS: SILVER SULFADIAZINE 1% TOP CREAM 50 GM JAR TP SCH (10:49)
--- NOTE | 2017-02-28 12:29 | PN ---
Progress Note, Physician Chief Complaint: Ms Vázquez says she is doing well. No cp, sob, n/v. - Current Medication List Current Medications: Active Medications Amino Acids (Prosource No Carb Liquid Pkt) 30 ml PO BID@0800,1730 [facility] Last Admin: 02/28/17 10:46 Dose: 30 ml Ascorbic Acid (Vitamin C -) 500 mg PO DAILY LISA Last Admin: 02/28/17 10:47 Dose: 500 mg Aspirin (Asa -) 81 mg PO DAILY LISA Last Admin: 02/28/17 10:47 Dose: 81 mg Atorvastatin Calcium (Lipitor -) 40 mg PO HS LISA Last Admin: 02/27/17 22:03 Dose: 40 mg Collagenase (Santyl -) 1 applic TP DAILY LISA Last Admin: 02/28/17 10:49 Dose: 1 applic Docusate Sodium (Colace -) 100 mg PO Q8H PRN PRN Reason: CONSTIPATION Last Admin: 02/24/17 22:34 Dose: 100 mg Furosemide (Lasix -) 40 mg PO DAILY LISA Last Admin: 02/28/17 10:47 Dose: 40 mg Heparin Sodium (Porcine) (Heparin -) 5,000 unit SQ TID LISA Last Admin: 02/28/17 06:25 Dose: 5,000 unit Hydrocortisone (Anusol 2.5% Hc Cream -) 1 applic TP BID LISA Last Admin: 02/28/17 10:48 Dose: 1 applic Levofloxacin (Levaquin 500 Mg Premixed Ivpb -) 100 mls @ 100 mls/hr IVPB DAILY LISA Last Admin: 02/28/17 10:48 Dose: 100 mls/hr Lactobacillus Acidophilus (Bacid -) 1 tab PO DAILY LISA Last Admin: 02/28/17 10:47 Dose: 1 tab Levothyroxine Sodium (Synthroid -) 75 mcg PO AM LISA Last Admin: 02/28/17 06:25 Dose: 75 mcg Losartan Potassium (Cozaar -) 50 mg PO DAILY LISA Last Admin: 02/28/17 10:47 Dose: 50 mg Multivitamins/Minerals/Vitamin C (Tab-A-Vit -) 1 tab PO DAILY LISA Last Admin: 02/28/17 10:47 Dose: 1 tab Nystatin (Nystop Powder -) 1 applic TP DAILY LISA Last Admin: 02/28/17 10:48 Dose: 1 applic Oxycodone HCl (Roxicodone -) 10 mg PO Q4H PRN PRN Reason: PAIN Last Admin: 02/27/17 23:51 Dose: 10 mg Polyethylene Glycol (Miralax (For Daily Use) -) 17 gm PO BID LISA Last Admin: 02/28/17 11:26 Dose: 17 gm Senna (Senna -) 2 tab PO HS PRN PRN Reason: CONSTIPATION Last Admin: 02/24/17 22:34 Dose: 2 tab Silver Sulfadiazine (Silvadene -) 1 applic TP DAILY LISA Last Admin: 02/28/17 10:49 Dose: 1 applic - Objective Vital Signs: Vital Signs Temperature 36.7 C 02/28/17 01:00 Pulse Rate 86 02/28/17 01:00 Respiratory Rate 20 02/28/17 01:00 Blood Pressure 110/48 02/28/17 01:00 O2 Sat by Pulse Oximetry (%) 95 02/27/17 21:00 Constitutional: Yes: No Distress, Calm, Obese Cardiovascular: Yes: Regular Rate and Rhythm. No: Gallop, Murmur, Rub Respiratory: Yes: Regular, CTA Bilaterally. No: Rales, Rhonchi, Wheezes Gastrointestinal: Yes: Normal Bowel Sounds, Soft. No: Distention, Tenderness Extremities: Yes: WNL Edema: Yes Edema: LLE: Trace, RLE: Trace Labs: CBC, BMP 02/28/17 06:00 02/28/17 06:00 Assessment/Plan 1. Cellulitis -cellulitis resolved -appreciate ID assistance -now on levaquin for UTI 2. UTI -patient found to have UTI, possible source of sepsis -continue levaquin -awaiting repeat urine culture results 3. Nephrolithiasis with hydronephrosis -appreciate urology assistance -s/p lithotripsy with stent placement -patient says will be unable to present for stent removal, leave in place for 3 days and remove prior to discharge 4. Sepsis -resolved 5. Buttock wound -wound care following 6. Dependent edema -continue lasix 40mg daily -cardiology following 7. HTN -well controlled -continue cozaar 8. Hypothyroid -continue synthroid 9. HLD -continue statin
[2017-02-28] MEDS: ATORVASTATIN CA 20 MG TABLET (FP) PO SCH (21:48)
[2017-03-01] MEDS: oxyCODONE HCL 5 MG TABLET PO PRN (01:07)
[2017-03-01] MEDS: LEVOTHYROXINE NA 75 MCG TABLET (FP) PO SCH (06:13)
[2017-03-01 07:57] LABS: BASOPHIL 0.5 % (0-2.0); EOSINOPHIL 5.6 % (0-4.5); MCH 26.4 pg (25.7-33.7); MCHC 31.9 g/dl (32.0-36.0); MEAN CELL VOLUME 82.7 fl (80-96); MEAN PLT VOLUME 7.6 fl (7.5-11.1); NEUTROPHILS 61.9 % (42.8-82.8); PLATELET COUNT 418 K/MM3 (134-434); RDW 17.4 % (11.6-15.6); WHITE BLOOD COUNT 8.3 K/mm3 (4.0-10.0)
[2017-03-01 08:33] LABS: ANION GAP 9 (8-16); CALCIUM 7.9 mg/dL (8.5-10.1); CO2 36 mmol/L (21-32); CREATININE 0.6 mg/dL (0.55-1.02); GLUCOSE,RANDOM 124 mg/dL (74-106); MAGNESIUM 1.9 mg/dL (1.8-2.4); PHOSPHOROUS 3.5 mg/dL (2.5-4.9)
[2017-03-01] MEDS: AMINO ACIDS/PROTEIN HYDROLYS 30 ML LIQUID.PKT PO SCH ×2 (08:51→17:51)
--- NOTE | 2017-03-01 09:10 | PN ---
Progress Note (short form) - Note Progress Note: CC: pre-op clearance S: s/p ureteral stent placement last night. no complaints today. no cp, palps , sob, dizziness. Current Medications: Active Medications Amino Acids (Prosource No Carb Liquid Pkt) 30 ml PO BID@0800,1730 [facility] Last Admin: 02/28/17 10:46 Dose: 30 ml Ascorbic Acid (Vitamin C -) 500 mg PO DAILY LISA Last Admin: 02/28/17 10:47 Dose: 500 mg Aspirin (Asa -) 81 mg PO DAILY LISA Last Admin: 02/28/17 10:47 Dose: 81 mg Atorvastatin Calcium (Lipitor -) 40 mg PO HS [facility] Last Admin: 02/27/17 22:03 Dose: 40 mg Collagenase (Santyl -) 1 applic TP DAILY [facility] Last Admin: 02/28/17 10:49 Dose: 1 applic Docusate Sodium (Colace -) 100 mg PO Q8H PRN PRN Reason: CONSTIPATION Last Admin: 02/24/17 22:34 Dose: 100 mg Furosemide (Lasix -) 40 mg PO DAILY LISA Last Admin: 02/28/17 10:47 Dose: 40 mg Heparin Sodium (Porcine) (Heparin -) 5,000 unit SQ TID LISA Last Admin: 02/28/17 06:25 Dose: 5,000 unit Hydrocortisone (Anusol 2.5% Hc Cream -) 1 applic TP BID [facility] Last Admin: 02/28/17 10:48 Dose: 1 applic Levofloxacin (Levaquin 500 Mg Premixed Ivpb -) 100 mls @ 100 mls/hr IVPB DAILY [facility] Last Admin: 02/28/17 10:48 Dose: 100 mls/hr Lactobacillus Acidophilus (Bacid -) 1 tab PO DAILY LISA Last Admin: 02/28/17 10:47 Dose: 1 tab Levothyroxine Sodium (Synthroid -) 75 mcg PO AM LISA Last Admin: 02/28/17 06:25 Dose: 75 mcg Losartan Potassium (Cozaar -) 50 mg PO DAILY [facility] Last Admin: 02/28/17 10:47 Dose: 50 mg Multivitamins/Minerals/Vitamin C (Tab-A-Vit -) 1 tab PO DAILY LISA Last Admin: 02/28/17 10:47 Dose: 1 tab Nystatin (Nystop Powder -) 1 applic TP DAILY [facility] Last Admin: 02/28/17 10:48 Dose: 1 applic Oxycodone HCl (Roxicodone -) 10 mg PO Q4H PRN PRN Reason: PAIN Last Admin: 02/27/17 23:51 Dose: 10 mg Polyethylene Glycol (Miralax (For Daily Use) -) 17 gm PO BID [facility]ISA Last Admin: 02/28/17 11:26 Dose: 17 gm Senna (Senna -) 2 tab PO HS PRN PRN Reason: CONSTIPATION Last Admin: 02/24/17 22:34 Dose: 2 tab Silver Sulfadiazine (Silvadene -) 1 applic TP DAILY LISA Last Admin: 02/28/17 10:49 Dose: 1 applic Vital Signs Temperature 36.7 C 02/28/17 01:00 Pulse Rate 86 02/28/17 01:00 Respiratory Rate 20 02/28/17 01:00 Blood Pressure 110/48 02/28/17 01:00 O2 Sat by Pulse Oximetry (%) 95 02/27/17 21:00 Constitutional: Yes: Well Nourished, No Distress Eyes: No: Sclera Icterus HENT: No: Nasal Congestion Neck: No: Decreased ROM Respiratory: Yes: ctab. No: Accessory Muscle Use, Rales, Wheezes Gastrointestinal: Yes: Normal Bowel Sounds. No: Distention, Hepatomegaly, Palpable Mass, Tenderness Cardiovascular: Yes: Regular Rate and Rhythm JVD: no Carotid Bruit: No PMI: Non-Displaced Heart Sounds: Yes: S1, S2. No: Gallop Murmur: 2/6 murmur at apex Musculoskeletal: Yes: Other (No kyphosis) Extremities: No: Cold, Cyanosis Edema: No Peripheral Pulses: 2+ Left Carotid, 2+ Right Carotid, 2+ Left Doralis Pedis, 2+ Right Dorsalis Pedis Integumentary: No: Jaundice Neurological: Yes: Alert, Oriented (x3) Psychiatric: No: Agitated Laboratory Tests 02/28/17 02/28/17 06:00 06:00 Hgb 8.8 L Plt Count 463 H Potassium 3.5 Carbon Dioxide 40 H BUN 7 D Creatinine 0.6 Magnesium 1.9 Assessment/Plan stress MPI 06/08: no ischemic EKG changes. nl perfusion. EF 45%, global. Echo 10/2016: tds; low nl lvef, nl rv, mild lae, mod tr, rvsp 40-50 Echo 02/2016: suboptimal. grossly nl lv size. Mild-mod LV dysfunction. RV not well seen. Mild ARLYN. Mod TR. RVSP 40-50. Small effusion < 1 cm. CXR 02/22: "increasing congestive changes". my review = probable mild chf/ vascular redistribution, unchanged vs 02/21 and 12/11 ECG 02/21/17: sinus arrhythmia plus APCs; normal axis/intervals; no path q's or ST-T abn acute on chronic diast chf: - preserved LVEF (11/07 echo) with no signif valve dysfunction and only mild-mod pulm HTN then - episode chf 06/08, EF mildly reduced then, diuresed in hospital - 12/08 here--held losartan bc bp low, possible ongoing bleed. - still with dependent edema at that time, sent home on torsemide 20mg qd - currently with signif improvement in edema vs admit per pt, no sob. however suspect probable JVD on exam and cxr likely with chronic mild chf findings - 02/26 lasix 40mg ivp x 1 today--reassess daily for lasix requirements - 02/28 s/p OR yesterday. appears euvolemic. con't home po lasix dose. bicarb slightly elevated, monitor closely for worsening contraction alkalosis. HTN - bp overall controlled, stable - cont current mgmt anemia: - hgb in 6s on admit, s/p prbcs with improvement in hgb - refused scopes at that time (despite GI recs) - again hgb down to 6's, s/p transufion she is in 8s. remains on asa. - per pmd HLD - con't home statin regimen nephrolithiasis with hydronephrosis: - per preop CV eval: - RCRI = 1, ? functional status - for intermediate risk surgery (cysto/lithotripsy) - no ischemia 06/08 nuclear stress test - no severe pulm HTN or valve dz on echo recently - diast CHF is well-compensated, likely with mildly volume up but stable vs priors - gave one dose lasix 40mg ivp , but she is not at high risk for severe chf decompensation perioperatively--limit fluids administration as possible, and low threshold for IVP lasix postop if any sob or changes in lung exam - 02/28 stable/euvolemic post op. con't same mgm't
[2017-03-01] MEDS ORDERED: PT OWN MED DRAWER 7, Y5N ONE (09:49)
[2017-03-01] MEDS: HYDROCORTISONE 2.5% TOPICAL CREAM 30 GM TUBE TP SCH ×2 (09:56→22:01)
[2017-03-01] MEDS: ASPIRIN 81 MG CHEWABLE TABLETS PO SCH (09:56)
[2017-03-01] MEDS: LACTOBACILLUS ACIDOPHILUS 1 EACH TAB (FP) PO SCH (09:56)
[2017-03-01] MEDS: MULTIVITAMINS (DAILY MVI) TABLET (FP) PO SCH (09:56)
[2017-03-01] MEDS: FUROSEMIDE 40 MG TABLET (FP) PO SCH (09:57)
[2017-03-01] MEDS: ASCORBIC ACID 500 MG TABLET (FP) PO SCH (09:57)
[2017-03-01] MEDS: LOSARTAN POTASSIUM 50 MG TABLET (FP) PO SCH (09:57)
[2017-03-01] MEDS: COLLAGENASE CLOSTRIDIUM HIST. 30 GRAMS TUBE TP SCH (09:58)
[2017-03-01] MEDS: SILVER SULFADIAZINE 1% TOP CREAM 50 GM JAR TP SCH (09:58)
[2017-03-01] MEDS: LEVOFLOXACIN 500 MG IVPB 100 ML IVPB SCH (09:58)
[2017-03-01] MEDS: NYSTATIN POWDER 100,000 UNITS/GM - 15 GM TOPICAL POWDER TP SCH (09:58)
[2017-03-01] MEDS: POLYETHYLENE GLYCOL 3350 119 GM BTL PO SCH ×2 (10:00→22:02)
--- NOTE | 2017-03-01 11:30 | PN ---
Progress Note (short form) - Note Progress Note: S: s/p ureteral stent placement. no complaints today. no cp, palps, sob, dizziness. Current Medications Generic Name Dose Route Start Last Admin Trade Name Freq PRN Reason Stop Dose Admin Amino Acids 30 ml 02/26/17 17:30 03/01/17 08:51 Prosource No Carb Liquid Pkt PO 30 ml BID@0800,1730 LISA Administration Ascorbic Acid 500 mg 02/27/17 10:00 03/01/17 09:57 Vitamin C - PO 500 mg DAILY LISA Administration Aspirin 81 mg 02/22/17 10:00 03/01/17 09:56 Asa - PO 81 mg DAILY LISA Administration Atorvastatin Calcium 40 mg 02/22/17 22:00 02/28/17 21:48 Lipitor - PO 40 mg HS LISA Administration Collagenase 1 applic 02/28/17 10:00 03/01/17 09:58 Santyl - TP 1 applic DAILY LISA Administration Docusate Sodium 100 mg 02/21/17 21:42 02/24/17 22:34 Colace - PO 100 mg Q8H PRN Administration CONSTIPATION Furosemide 40 mg 02/22/17 10:00 03/01/17 09:57 Lasix - PO 40 mg DAILY LISA Administration Hydrocortisone 1 applic 02/22/17 13:45 03/01/17 09:56 Anusol 2.5% Hc Cream - TP 1 applic BID LISA Administration Levofloxacin 100 mls @ 100 mls/hr 02/24/17 15:00 03/01/17 09:58 Levaquin 500 Mg Premixed Ivpb - IVPB 100 mls/hr DAILY LISA Administration Lactobacillus Acidophilus 1 tab 02/23/17 10:00 03/01/17 09:56 Bacid - PO 1 tab DAILY LISA Administration Levothyroxine Sodium 75 mcg 02/22/17 07:00 03/01/17 06:13 Synthroid - PO 75 mcg AM LISA Administration Losartan Potassium 50 mg 02/22/17 10:00 03/01/17 09:57 Cozaar - PO 50 mg DAILY LISA Administration Multivitamins/Minerals/Vitamin C 1 tab 02/27/17 10:00 03/01/17 09:56 Tab-A-Vit - PO 1 tab DAILY LISA Administration Nystatin 1 applic 02/25/17 10:00 03/01/17 09:58 Nystop Powder - TP 1 applic DAILY LISA Administration Oxycodone HCl 10 mg 02/26/17 14:36 03/01/17 01:07 Roxicodone - PO 10 mg Q4H PRN Administration PAIN Polyethylene Glycol 17 gm 02/25/17 22:00 02/28/17 21:49 Miralax (For Daily Use) - PO 17 gm BID LISA Administration Senna 2 tab 02/22/17 21:42 02/24/17 22:34 Senna - PO 2 tab HS PRN Administration CONSTIPATION Silver Sulfadiazine 1 applic 02/28/17 10:00 03/01/17 09:58 Silvadene - TP 1 applic DAILY LISA Administration Vital Signs Period Temp Pulse Resp BP Sys/Donohue Pulse Ox Last 24 Hr 97.6 F-98.4 F 73-90 20-20 105-146/57-73 93-96 Constitutional: Yes: Well Nourished, No Distress Eyes: No: Sclera Icterus Respiratory: Yes: ctab. No: Accessory Muscle Use, Rales, Wheezes Gastrointestinal: Yes: Normal Bowel Sounds. No: Distention, Hepatomegaly, Palpable Mass, Tenderness Cardiovascular: Yes: Regular Rate and Rhythm JVD: no Heart Sounds: Yes: S1, S2. No: Gallop Murmur: 2/6 murmur at apex Extremities: No: Cold, Cyanosis Edema: No Integumentary: No: Jaundice Neurological: Yes: Alert, Oriented (x3) Psychiatric: No: Agitated Laboratory Last Values WBC 8.3 K/mm3 (4.0-10.0) 03/01/17 06:00 RBC 3.36 M/mm3 (3.60-5.2) L 03/01/17 06:00 Hgb 8.9 GM/dL (10.7-15.3) L 03/01/17 06:00 Hct 27.8 % (32.4-45.2) L 03/01/17 06:00 MCV 82.7 fl (80-96) 03/01/17 06:00 MCH 26.4 pg (25.7-33.7) 03/01/17 06:00 MCHC 31.9 g/dl (32.0-36.0) L 03/01/17 06:00 RDW 17.4 % (11.6-15.6) H 03/01/17 06:00 Plt Count 418 K/MM3 (134-434) 03/01/17 06:00 MPV 7.6 fl (7.5-11.1) 03/01/17 06:00 Neutrophils % 61.9 % (42.8-82.8) 03/01/17 06:00 Lymphocytes % 25.3 % (8-40) 03/01/17 06:00 Monocytes % 6.7 % (3.8-10.2) 03/01/17 06:00 Eosinophils % 5.6 % (0-4.5) H 03/01/17 06:00 Basophils % 0.5 % (0-2.0) 03/01/17 06:00 Sodium 142 mmol/L (136-145) 03/01/17 06:00 Potassium 3.3 mmol/L (3.5-5.1) L 03/01/17 06:00 Chloride 97 mmol/L (98-107) L 03/01/17 06:00 Carbon Dioxide 36 mmol/L (21-32) H 03/01/17 06:00 Anion Gap 9 (8-16) 03/01/17 06:00 BUN 9 mg/dL (7-18) D 03/01/17 06:00 Creatinine 0.6 mg/dL (0.55-1.02) 03/01/17 06:00 Creat Clearance w eGFR > 60 (>60) 02/24/17 07:00 POC Glucometer 133 UNITS (()) 02/26/17 11:18 Random Glucose 124 mg/dL (74-106) H 03/01/17 06:00 Lactic Acid 1.2 mmol/L (0.4-2.0) 02/21/17 13:15 Calcium 7.9 mg/dL (8.5-10.1) L 03/01/17 06:00 Phosphorus 3.5 mg/dL (2.5-4.9) 03/01/17 06:00 Magnesium 1.9 mg/dL (1.8-2.4) 03/01/17 06:00 Total Bilirubin 0.5 mg/dL (0.2-1.0) D 02/24/17 07:00 AST 7 U/L (15-37) L D 02/24/17 07:00 ALT 12 U/L (12-78) D 02/24/17 07:00 Alkaline Phosphatase 78 U/L (45-117) D 02/24/17 07:00 Creatine Kinase Cancelled 02/21/17 13:18 Troponin I Cancelled 02/21/17 13:18 B-Natriuretic Peptide Cancelled 02/21/17 13:18 Total Protein 4.8 g/dl (6.4-8.2) L 02/24/17 07:00 Albumin 1.6 g/dl (3.4-5.0) L 02/24/17 07:00 Lipase 66 U/L (73-393) L 02/21/17 13:15 Urine Color Straw 02/24/17 08:45 Urine Appearance Clear 02/24/17 08:45 Urine pH 6.0 (5.0-8.0) 02/24/17 08:45 Ur Specific [place] 1.010 (1.005-1.025) 02/24/17 08:45 Urine Protein Negative (NEGATIVE) 02/24/17 08:45 Urine Glucose (UA) Negative (NEGATIVE) 02/24/17 08:45 Urine Ketones Negative (NEGATIVE) 02/24/17 08:45 Urine Blood 1+ (NEGATIVE) H 02/24/17 08:45 Urine Nitrite Negative (NEGATIVE) 02/24/17 08:45 Urine Bilirubin Negative (NEGATIVE) 02/24/17 08:45 Urine Urobilinogen Negative mg/dL (0.2-1.0) 02/24/17 08:45 Ur Leukocyte Esterase 3+ (NEGATIVE) H 02/24/17 08:45 Urine RBC 1 /hpf (0-3) 02/24/17 08:45 Urine WBC 15 /hpf (3-5) 02/24/17 08:45 Ur Epithelial Cells Rare /hpf (FEW) 02/24/17 08:45 Urine Bacteria Few /hpf (NONE SEEN) 02/24/17 08:45 Urine Mucus Rare 02/24/17 08:45 Blood Type O POSITIVE 02/24/17 08:45 Antibody Screen Negative 02/24/17 08:45 Crossmatch See Detail 02/24/17 08:45 Spec Expiration Date 02/24/17 08:45 stress MPI 06/08: no ischemic EKG changes. nl perfusion. EF 45%, global. Echo 10/2016: tds; low nl lvef, nl rv, mild lae, mod tr, rvsp 40-50 Echo 02/2016: suboptimal. grossly nl lv size. Mild-mod LV dysfunction. RV not well seen. Mild ARLYN. Mod TR. RVSP 40-50. Small effusion < 1 cm. CXR 02/22: "increasing congestive changes". my review = probable mild chf/ vascular redistribution, unchanged vs 02/21 and 12/11 ECG 02/21/17: sinus arrhythmia plus APCs; normal axis/intervals; no path q's or ST-T abn Assessment/Plan acute on chronic diast chf: - preserved LVEF (11/07 echo) with no signif valve dysfunction and only mild-mod pulm HTN then - episode chf 06/08, EF mildly reduced then, diuresed in hospital - 12/08 here--held losartan bc bp low, possible ongoing bleed. - still with dependent edema at that time, sent home on torsemide 20mg qd - currently with signif improvement in edema vs admit per pt, no sob. however suspect probable JVD on exam and cxr likely with chronic mild chf findings - 02/26 lasix 40mg ivp x 1 today--reassess daily for lasix requirements - 02/28 s/p OR yesterday. appears euvolemic. con't home po lasix dose. - 03/01: cont po lasix for maintenance HTN - bp overall controlled, stable - cont current mgmt anemia: - hgb in 6s on prior admit, s/p prbcs with improvement in hgb - refused scopes at that time (despite GI recs) - again hgb down to 6's, s/p transfusion she is in 8s. remains on asa. - per pmd HLD - con't home statin regimen nephrolithiasis with hydronephrosis: - per
--- NOTE | 2017-03-01 13:20 | PN ---
Progress Note, Physician Chief Complaint: Ms Vázquez says she is doing well. No cp, sob, n/v. - Current Medication List Current Medications: Active Medications Amino Acids (Prosource No Carb Liquid Pkt) 30 ml PO BID@0800,1730 [facility] Last Admin: 03/01/17 08:51 Dose: 30 ml Ascorbic Acid (Vitamin C -) 500 mg PO DAILY [facility] Last Admin: 03/01/17 09:57 Dose: 500 mg Aspirin (Asa -) 81 mg PO DAILY [facility] Last Admin: 03/01/17 09:56 Dose: 81 mg Atorvastatin Calcium (Lipitor -) 40 mg PO HS [facility] Last Admin: 02/28/17 21:48 Dose: 40 mg Collagenase (Santyl -) 1 applic TP DAILY [facility] Last Admin: 03/01/17 09:58 Dose: 1 applic Docusate Sodium (Colace -) 100 mg PO Q8H PRN PRN Reason: CONSTIPATION Last Admin: 02/24/17 22:34 Dose: 100 mg Furosemide (Lasix -) 40 mg PO DAILY [facility] Last Admin: 03/01/17 09:57 Dose: 40 mg Hydrocortisone (Anusol 2.5% Hc Cream -) 1 applic TP BID LISA Last Admin: 03/01/17 09:56 Dose: 1 applic Levofloxacin (Levaquin 500 Mg Premixed Ivpb -) 100 mls @ 100 mls/hr IVPB DAILY [facility] Last Admin: 03/01/17 09:58 Dose: 100 mls/hr Lactobacillus Acidophilus (Bacid -) 1 tab PO DAILY [facility]ISA Last Admin: 03/01/17 09:56 Dose: 1 tab Levothyroxine Sodium (Synthroid -) 75 mcg PO AM LISA Last Admin: 03/01/17 06:13 Dose: 75 mcg Losartan Potassium (Cozaar -) 50 mg PO DAILY [facility]ISA Last Admin: 03/01/17 09:57 Dose: 50 mg Multivitamins/Minerals/Vitamin C (Tab-A-Vit -) 1 tab PO DAILY LISA Last Admin: 03/01/17 09:56 Dose: 1 tab Nystatin (Nystop Powder -) 1 applic TP DAILY LISA Last Admin: 03/01/17 09:58 Dose: 1 applic Oxycodone HCl (Roxicodone -) 10 mg PO Q4H PRN PRN Reason: PAIN Last Admin: 03/01/17 01:07 Dose: 10 mg Polyethylene Glycol (Miralax (For Daily Use) -) 17 gm PO BID LISA Last Admin: 03/01/17 10:00 Dose: 17 gm Senna (Senna -) 2 tab PO HS PRN PRN Reason: CONSTIPATION Last Admin: 02/24/17 22:34 Dose: 2 tab Silver Sulfadiazine (Silvadene -) 1 applic TP DAILY LISA Last Admin: 03/01/17 09:58 Dose: 1 applic - Objective Vital Signs: Vital Signs Temperature 36.5 C 03/01/17 10:00 Pulse Rate 73 03/01/17 10:30 Respiratory Rate 20 03/01/17 10:00 Blood Pressure 131/62 03/01/17 10:00 O2 Sat by Pulse Oximetry (%) 93 L 03/01/17 10:30 Constitutional: Yes: No Distress, Calm, Obese Cardiovascular: Yes: Regular Rate and Rhythm. No: Gallop, Murmur, Rub Respiratory: Yes: Regular, CTA Bilaterally. No: Rales, Rhonchi, Wheezes Gastrointestinal: Yes: Normal Bowel Sounds, Soft. No: Distention, Tenderness Extremities: Yes: WNL Edema: No Labs: CBC, BMP 03/01/17 06:00 03/01/17 06:00 Assessment/Plan 1. Cellulitis -cellulitis resolved -appreciate ID assistance -now on levaquin for UTI 2. UTI -repeat urine cultures positive -on levaquin -will await culture results, may need to expand antibiotic regimen 3. Nephrolithiasis with hydronephrosis -appreciate urology assistance -s/p lithotripsy with stent placement -urology following and planning for stent removal prior to discharge 4. Sepsis -resolved 5. Buttock wound -wound care following 6. Dependent edema -continue lasix 40mg daily -cardiology following 7. HTN -well controlled -continue cozaar 8. Hypothyroid -continue synthroid 9. HLD -continue statin
--- NOTE | 2017-03-01 15:14 | PATH ---
Surgical Pathology Report Patient Name: LUIS GARCIA Med. Rec. #: [id number] /Age/Gender: 1945 (Age: 71) / F Account: [id number] Location: [facility] MED/SURG Taken: 02/27/2017 Received: 02/28/2017 Reported: 03/01/2017 Physicians: Grace Jones M.D. Specimen(s) Received LEFT KIDNEY STONE Clinical History Left kidney stone Final Diagnosis STONE, LEFT KIDNEY, REMOVAL: CALCULUS (GROSS EXAM) SPECIMEN SENT FOR CHEMICAL ANALYSIS. Electronically Signed Bird Samuels M.D. Gross Description Received fresh labeled "left kidney stone" is a 0.5 cm greatest dimension black, irregular calculus. The specimen is sent for chemical analysis. 02/28/201702/28/2017
[2017-03-01] MEDS: ATORVASTATIN CA 20 MG TABLET (FP) PO SCH (22:01)
[2017-03-02] MEDS: LEVOTHYROXINE NA 75 MCG TABLET (FP) PO SCH (06:43)
[2017-03-02 07:38] LABS: BASOPHIL 0.3 % (0-2.0); EOSINOPHIL 4.6 % (0-4.5); MCH 26.3 pg (25.7-33.7); MCHC 31.8 g/dl (32.0-36.0); MEAN CELL VOLUME 82.7 fl (80-96); MEAN PLT VOLUME 7.6 fl (7.5-11.1); NEUTROPHILS 64.8 % (42.8-82.8); PLATELET COUNT 402 K/MM3 (134-434); RDW 17.4 % (11.6-15.6); WHITE BLOOD COUNT 8.7 K/mm3 (4.0-10.0)
[2017-03-02 08:11] LABS: ANION GAP 9 (8-16); CALCIUM 7.8 mg/dL (8.5-10.1); CO2 34 mmol/L (21-32); CREATININE 0.5 mg/dL (0.55-1.02); GLUCOSE,RANDOM 150 mg/dL (74-106); MAGNESIUM 1.9 mg/dL (1.8-2.4); PHOSPHOROUS 3.8 mg/dL (2.5-4.9)
--- NOTE | 2017-03-02 08:45 | PN ---
Progress Note (short form) - Note Progress Note: Patient seen and examined. Chart reviewed at length. Currently sitting up in bed, eating breakfast, alert and appropriate. Denies new chest discomfort palpitations, dyspnea or angina. No dysuria or abdominal cramping. Labs, radiologic procedures and progress notes reviewed. Medications reviewed. Awaiting stent removal. Selected Entries 03/01/17 03/02/17 03/02/17 20:56 06:00 06:38 Temperature 98.1 F Pulse Rate 87 Respiratory 20 Rate Blood Pressure 140/60 O2 Sat by Pulse 95 Oximetry (%) Oxygen Delivery Nasal Cannula Method Oxygen Flow 2 Rate Weight 246 lb 6.4 oz Laboratory Tests 03/02/17 03/02/17 06:00 06:00 WBC 8.7 Hgb 9.2 L Hct 28.9 L Plt Count 402 Sodium 141 Potassium 3.5 Chloride 98 Carbon Dioxide 34 H BUN 11 D Creatinine 0.5 L Random Glucose 150 H D Calcium 7.8 L Phosphorus 3.8 Magnesium 1.9 Chest Clear Cor RRR 1/6 sys murmur Abd Obese Non-tender No mass Ext No edema Right ankle wrapped Neuro No new focal deficit Daniels catheter in place Assessment and Plan UTI NLF GNR Rx as ordered Nephrolithiasis with hydronephrosis post lithotripsy and stent placement For urologic stent removal IGT Glucose 150 range Hypokalemia 3.3>>3.5 Monitor Mg normal Hypothyroid Stable HPL Stable on Rx Wound Buttock and heel Monitor H/O Dependent edema Resolved Continue current Rx HTN Stable Anemia 9.2/28.9 Monitor Likely mutifactorial etiology Acute on chronic diastolic CHF with preserved LV function Continue current Rx Obesity Continue current Rx Order Builder input appreciated
[2017-03-02] MEDS ORDERED: POTASSIUM CHLORIDE TABS 20 MEQ TABLET.ER (FP) PO ONE (09:00)
[2017-03-02] MEDS: AMINO ACIDS/PROTEIN HYDROLYS 30 ML LIQUID.PKT PO SCH ×2 (10:48→17:15)
[2017-03-02] MEDS: FUROSEMIDE 40 MG TABLET (FP) PO SCH (10:48)
[2017-03-02] MEDS: ASCORBIC ACID 500 MG TABLET (FP) PO SCH (10:48)
[2017-03-02] MEDS: ASPIRIN 81 MG CHEWABLE TABLETS PO SCH (10:48)
[2017-03-02] MEDS: MULTIVITAMINS (DAILY MVI) TABLET (FP) PO SCH (10:48)
[2017-03-02] MEDS: LEVOFLOXACIN 500 MG IVPB 100 ML IVPB SCH (10:48)
[2017-03-02] MEDS: LACTOBACILLUS ACIDOPHILUS 1 EACH TAB (FP) PO SCH (10:48)
[2017-03-02] MEDS: LOSARTAN POTASSIUM 50 MG TABLET (FP) PO SCH (10:48)
[2017-03-02] MEDS: POLYETHYLENE GLYCOL 3350 119 GM BTL PO SCH ×2 (10:49→23:10)
[2017-03-02] MEDS: NYSTATIN POWDER 100,000 UNITS/GM - 15 GM TOPICAL POWDER TP SCH (10:52)
[2017-03-02] MEDS: HYDROCORTISONE 2.5% TOPICAL CREAM 30 GM TUBE TP SCH ×2 (10:52→23:10)
[2017-03-02] MEDS: SILVER SULFADIAZINE 1% TOP CREAM 50 GM JAR TP SCH (12:20)
[2017-03-02] MEDS: COLLAGENASE CLOSTRIDIUM HIST. 30 GRAMS TUBE TP SCH (12:21)
[2017-03-02] MEDS ORDERED: HYDROmorphone HCL CARPU-JECT 2 MG/1 ML DISP.SYRIN IM ONE (16:09)
[2017-03-02] MEDS: ATORVASTATIN CA 20 MG TABLET (FP) PO SCH (23:10)
[2017-03-03] MEDS: oxyCODONE HCL 5 MG TABLET PO PRN ×2 (02:02→07:04)
[2017-03-03] MEDS: LEVOTHYROXINE NA 75 MCG TABLET (FP) PO SCH (07:06)
[2017-03-03 08:19] LABS: BASOPHIL 0.5 % (0-2.0); EOSINOPHIL 5.2 % (0-4.5); MCH 26.5 pg (25.7-33.7); MCHC 31.5 g/dl (32.0-36.0); MEAN CELL VOLUME 84.3 fl (80-96); MEAN PLT VOLUME 7.7 fl (7.5-11.1); NEUTROPHILS 66.1 % (42.8-82.8); PLATELET COUNT 378 K/MM3 (134-434); RDW 17.9 % (11.6-15.6); WHITE BLOOD COUNT 8.6 K/mm3 (4.0-10.0)
[2017-03-03 08:44] LABS: ALBUMIN 2.1 g/dl (3.4-5.0); ANION GAP 8 (8-16); CALCIUM 7.9 mg/dL (8.5-10.1); CO2 34 mmol/L (21-32); GLUCOSE,RANDOM 136 mg/dL (74-106)
[2017-03-03 08:48] LABS: ALK PHOS 79 U/L (45-117); BILIRUBIN,TOTAL 0.3 mg/dL (0.2-1.0); CREATININE 0.6 mg/dL (0.55-1.02); SGOT/AST 13 U/L (15-37); SGPT/ALT 14 U/L (12-78); TOT PROT 5.5 g/dl (6.4-8.2)
--- NOTE | 2017-03-03 08:48 | PN ---
Progress Note (short form) - Note Progress Note: Patient seen and examined. Chart reviewed. Currently lying supine in bed, lethargic but alert and appropriate. Has taken a pain pill earlier this AM. Denies new chest discomfort palpitations, dyspnea or angina. No dysuria or abdominal cramping. Labs, radiologic procedures and progress notes reviewed. Medications reviewed. Stent removed. Psueudomonas Aeruginosa UTI noted along with the sensitivities. Microbiology 02/27/17 08:34 Urine - Urine, Via Cystoscope Urine Culture - Final Pseudomonas Aeruginosa Selected Entries 03/03/17 03/03/17 05:47 06:00 Temperature 99.1 F Pulse Rate 83 Respiratory 20 Rate Blood Pressure 121/49 Weight 241 lb 12.8 oz Laboratory Tests 03/03/17 06:45 WBC 8.6 Hgb 9.3 L Hct 29.5 L Plt Count 378 CMP Pending Chest Clear Cor RRR 1/6 sys murmur Abd Obese Non-tender No mass Ext No edema Right ankle wrapped Neuro No new focal deficit Daniels catheter removed Assessment and Plan UTI NLF GNR Rx identified as Pseudomonas Sensitivities reviewed Will request ID assessment Nephrolithiasis with hydronephrosis post lithotripsy and stent placement Stent removed by urologist IGT Glucose 150 range Hypokalemia 3.3>>3.5 Monitor Mg normal Recheck Hypothyroid Stable HPL Stable on Rx Wound Buttock and heel Monitor Right buttock wound re-packed H/O Dependent edema Resolved Continue current Rx HTN Stable Anemia 9.2/28.9>>9.3/29.5 Monitor Likely multifactorial etiology Acute on chronic diastolic CHF with preserved LV function Continue current Rx Obesity Continue current Rx Irb Compliance Coordinator input appreciated Will request ID evaluation
[2017-03-03] MEDS ORDERED: PT OWN MED DRAWER 7, Y5N ONE ×3 (10:29→21:29)
[2017-03-03] MEDS: AMINO ACIDS/PROTEIN HYDROLYS 30 ML LIQUID.PKT PO SCH ×2 (10:37→18:18)
[2017-03-03] MEDS: FUROSEMIDE 40 MG TABLET (FP) PO SCH (10:37)
[2017-03-03] MEDS: LACTOBACILLUS ACIDOPHILUS 1 EACH TAB (FP) PO SCH (10:37)
[2017-03-03] MEDS: ASCORBIC ACID 500 MG TABLET (FP) PO SCH (10:37)
[2017-03-03] MEDS: ASPIRIN 81 MG CHEWABLE TABLETS PO SCH (10:37)
[2017-03-03] MEDS: LEVOFLOXACIN 500 MG IVPB 100 ML IVPB SCH (10:37)
[2017-03-03] MEDS: MULTIVITAMINS (DAILY MVI) TABLET (FP) PO SCH (10:37)
[2017-03-03] MEDS: SILVER SULFADIAZINE 1% TOP CREAM 50 GM JAR TP SCH (10:38)
[2017-03-03] MEDS: COLLAGENASE CLOSTRIDIUM HIST. 30 GRAMS TUBE TP SCH (10:38)
[2017-03-03] MEDS: HYDROCORTISONE 2.5% TOPICAL CREAM 30 GM TUBE TP SCH ×2 (10:38→21:35)
[2017-03-03] MEDS: POLYETHYLENE GLYCOL 3350 119 GM BTL PO SCH ×2 (10:38→21:32)
[2017-03-03] MEDS: NYSTATIN POWDER 100,000 UNITS/GM - 15 GM TOPICAL POWDER TP SCH (10:39)
--- NOTE | 2017-03-03 16:27 | PN ---
Progress Note, Physician History of Present Illness: + urine c/s noted No c/o dysuria No suprapubic pain No fever/ chills Afebrile WBC WNL - Current Medication List Current Medications: Active Medications Amino Acids (Prosource No Carb Liquid Pkt) 30 ml PO BID@0800,1730 [facility] Last Admin: 03/03/17 10:37 Dose: 30 ml Ascorbic Acid (Vitamin C -) 500 mg PO DAILY [facility] Last Admin: 03/03/17 10:37 Dose: 500 mg Aspirin (Asa -) 81 mg PO DAILY [facility]ISA Last Admin: 03/03/17 10:37 Dose: 81 mg Atorvastatin Calcium (Lipitor -) 40 mg PO HS [facility] Last Admin: 03/02/17 23:10 Dose: 40 mg Collagenase (Santyl -) 1 applic TP DAILY [facility] Last Admin: 03/03/17 10:38 Dose: 1 applic Docusate Sodium (Colace -) 100 mg PO Q8H PRN PRN Reason: CONSTIPATION Last Admin: 02/24/17 22:34 Dose: 100 mg Furosemide (Lasix -) 40 mg PO DAILY [facility] Last Admin: 03/03/17 10:37 Dose: 40 mg Hydrocortisone (Anusol 2.5% Hc Cream -) 1 applic TP BID [facility] Last Admin: 03/03/17 10:38 Dose: 1 applic Lactobacillus Acidophilus (Bacid -) 1 tab PO DAILY [facility] Last Admin: 03/03/17 10:37 Dose: 1 tab Levothyroxine Sodium (Synthroid -) 75 mcg PO AM [facility] Last Admin: 03/03/17 07:06 Dose: 75 mcg Losartan Potassium (Cozaar -) 50 mg PO DAILY [facility] Last Admin: 03/02/17 10:48 Dose: 50 mg Multivitamins/Minerals/Vitamin C (Tab-A-Vit -) 1 tab PO DAILY [facility] Last Admin: 03/03/17 10:37 Dose: 1 tab Nystatin (Nystop Powder -) 1 applic TP DAILY [facility] Last Admin: 03/03/17 10:39 Dose: 1 applic Polyethylene Glycol (Miralax (For Daily Use) -) 17 gm PO BID [facility] Last Admin: 03/03/17 10:38 Dose: 17 gm Senna (Senna -) 2 tab PO HS PRN PRN Reason: CONSTIPATION Last Admin: 02/24/17 22:34 Dose: 2 tab Silver Sulfadiazine (Silvadene -) 1 applic TP DAILY [facility] Last Admin: 03/03/17 10:38 Dose: 1 applic - Objective Vital Signs: Vital Signs Temperature 98.4 F 03/03/17 09:00 Pulse Rate 74 03/03/17 09:00 Respiratory Rate 18 03/03/17 09:00 Blood Pressure 156/87 03/03/17 09:00 O2 Sat by Pulse Oximetry (%) 95 03/01/17 20:56 Constitutional: Yes: No Distress Eyes: Yes: Conjunctiva Clear Cardiovascular: Yes: Regular Rate and Rhythm Respiratory: Yes: Diminished Gastrointestinal: Yes: Normal Bowel Sounds, Soft, Abdomen, Obese Edema: Yes Labs: CBC, BMP 03/03/17 06:45 03/03/17 06:45 Assessment/Plan S/P ureteral stent + urine c/s Pseudomonas Observe off antibiotics
[2017-03-03] MEDS: LOSARTAN POTASSIUM 50 MG TABLET (FP) PO SCH (18:18)
[2017-03-03] MEDS: ATORVASTATIN CA 20 MG TABLET (FP) PO SCH (21:32)
[2017-03-04] MEDS: LEVOTHYROXINE NA 75 MCG TABLET (FP) PO SCH (06:27)
[2017-03-04 08:00] LABS: BASOPHIL 0.5 % (0-2.0); EOSINOPHIL 4.8 % (0-4.5); MCH 26.1 pg (25.7-33.7); MCHC 31.5 g/dl (32.0-36.0); PLATELET COUNT 322 K/MM3 (134-434); RDW 17.6 % (11.6-15.6); WHITE BLOOD COUNT 8.3 K/mm3 (4.0-10.0)
[2017-03-04 08:22] LABS: ALBUMIN 2.1 g/dl (3.4-5.0); CALCIUM 7.9 mg/dL (8.5-10.1)
[2017-03-04 08:28] LABS: ALK PHOS 80 U/L (45-117); ANION GAP 9 (8-16); BILIRUBIN,TOTAL 0.5 mg/dL (0.2-1.0); CO2 33 mmol/L (21-32); CREATININE 0.4 mg/dL (0.55-1.02); GLUCOSE,RANDOM 144 mg/dL (74-106); SGOT/AST 13 U/L (15-37); SGPT/ALT 13 U/L (12-78); TOT PROT 5.5 g/dl (6.4-8.2)
[2017-03-04] MEDS: AMINO ACIDS/PROTEIN HYDROLYS 30 ML LIQUID.PKT PO SCH ×2 (08:48→17:06)
--- NOTE | 2017-03-04 09:12 | PN ---
Progress Note (short form) - Note Progress Note: ID Insertion of stent 02/[address] Jones Afebrile off antibiotic Selected Entries 03/04/17 06:00 Temperature 97.9 F Pulse Rate 80 Respiratory 18 Rate Blood Pressure 116/55 Microbiology 02/27/17 08:34 Urine - Urine, Via Cystoscope Urine Culture - Final Pseudomonas Aeruginosa 02/22/17 13:58 Blood - Peripheral Venous Blood Culture - Final NO GROWTH AFTER 5 DAYS INCUBATION 02/22/17 13:50 Blood - Peripheral Venous Blood Culture - Final NO GROWTH AFTER 5 DAYS INCUBATION Laboratory Tests 03/04/17 03/04/17 07:15 07:15 WBC 8.3 Hgb 9.2 L Hct 29.3 L Plt Count 322 BUN 11 Assessment Given her asymptomatic status I agree the urine c/s should not be treated now Plan Kindly recall us as needed Justen KENNEY
[2017-03-04] MEDS ORDERED: PT OWN MED DRAWER 7, Y5N ONE (09:36)
[2017-03-04] MEDS: MULTIVITAMINS (DAILY MVI) TABLET (FP) PO SCH (09:48)
[2017-03-04] MEDS: ASCORBIC ACID 500 MG TABLET (FP) PO SCH (09:48)
[2017-03-04] MEDS: LACTOBACILLUS ACIDOPHILUS 1 EACH TAB (FP) PO SCH (09:48)
[2017-03-04] MEDS: LOSARTAN POTASSIUM 50 MG TABLET (FP) PO SCH (09:48)
[2017-03-04] MEDS: FUROSEMIDE 40 MG TABLET (FP) PO SCH (09:48)
[2017-03-04] MEDS: NYSTATIN POWDER 100,000 UNITS/GM - 15 GM TOPICAL POWDER TP SCH (09:49)
[2017-03-04] MEDS: ASPIRIN 81 MG CHEWABLE TABLETS PO SCH (09:49)
[2017-03-04] MEDS: HYDROCORTISONE 2.5% TOPICAL CREAM 30 GM TUBE TP SCH ×2 (09:49→21:56)
[2017-03-04] MEDS: POLYETHYLENE GLYCOL 3350 119 GM BTL PO SCH ×2 (09:50→21:57)
[2017-03-04] MEDS: SILVER SULFADIAZINE 1% TOP CREAM 50 GM JAR TP SCH (11:50)
[2017-03-04] MEDS: COLLAGENASE CLOSTRIDIUM HIST. 30 GRAMS TUBE TP SCH (11:50)
--- NOTE | 2017-03-04 19:22 | PN ---
Progress Note, Physician Chief Complaint: Ms Vázquez says she is doing well. No cp, sob, n/v. - Current Medication List Current Medications: Active Medications Amino Acids (Prosource No Carb Liquid Pkt) 30 ml PO BID@0800,1730 [facility] Last Admin: 03/04/17 17:06 Dose: 30 ml Ascorbic Acid (Vitamin C -) 500 mg PO DAILY [facility] Last Admin: 03/04/17 09:48 Dose: 500 mg Aspirin (Asa -) 81 mg PO DAILY [facility] Last Admin: 03/04/17 09:49 Dose: 81 mg Atorvastatin Calcium (Lipitor -) 40 mg PO HS [facility] Last Admin: 03/03/17 21:32 Dose: 40 mg Collagenase (Santyl -) 1 applic TP DAILY [facility] Last Admin: 03/04/17 11:50 Dose: 1 applic Docusate Sodium (Colace -) 100 mg PO Q8H PRN PRN Reason: CONSTIPATION Last Admin: 02/24/17 22:34 Dose: 100 mg Furosemide (Lasix -) 40 mg PO DAILY [facility] Last Admin: 03/04/17 09:48 Dose: 40 mg Hydrocortisone (Anusol 2.5% Hc Cream -) 1 applic TP BID [facility] Last Admin: 03/04/17 09:49 Dose: 1 applic Lactobacillus Acidophilus (Bacid -) 1 tab PO DAILY [facility] Last Admin: 03/04/17 09:48 Dose: 1 tab Levothyroxine Sodium (Synthroid -) 75 mcg PO AM [facility] Last Admin: 03/04/17 06:27 Dose: 75 mcg Losartan Potassium (Cozaar -) 50 mg PO DAILY [facility] Last Admin: 03/04/17 09:48 Dose: 50 mg Multivitamins/Minerals/Vitamin C (Tab-A-Vit -) 1 tab PO DAILY [facility] Last Admin: 03/04/17 09:48 Dose: 1 tab Nystatin (Nystop Powder -) 1 applic TP DAILY [facility] Last Admin: 03/04/17 09:49 Dose: 1 applic Polyethylene Glycol (Miralax (For Daily Use) -) 17 gm PO BID [facility] Last Admin: 03/04/17 09:50 Dose: 17 gm Senna (Senna -) 2 tab PO HS PRN PRN Reason: CONSTIPATION Last Admin: 02/24/17 22:34 Dose: 2 tab - Objective Vital Signs: Vital Signs Temperature 37.0 C 03/04/17 17:04 Pulse Rate 77 03/04/17 17:04 Respiratory Rate 20 03/04/17 17:04 Blood Pressure 121/51 03/04/17 17:04 O2 Sat by Pulse Oximetry (%) 96 03/04/17 09:00 Constitutional: Yes: No Distress, Calm, Obese Cardiovascular: Yes: Regular Rate and Rhythm. No: Gallop, Murmur, Rub Respiratory: Yes: Regular, CTA Bilaterally. No: Rales, Rhonchi, Wheezes Gastrointestinal: Yes: Normal Bowel Sounds, Soft. No: Distention, Tenderness Extremities: Yes: WNL Edema: No Labs: CBC, BMP 03/04/17 07:15 03/04/17 07:15 Assessment/Plan 1. Cellulitis -cellulitis resolved -appreciate ID assistance 2. UTI -repeat cultures growing pseudomonas -however ID following and recommending no treatment since asymptomatic -monitor today 3. Nephrolithiasis with hydronephrosis -appreciate urology assistance -s/p lithotripsy with stent placement -stent and shook removed -follow up repeat ultrasound 4. Sepsis -resolved 5. Buttock wound -wound care following 6. Dependent edema -continue lasix 40mg daily -cardiology following 7. HTN -well controlled -continue cozaar 8. Hypothyroid -continue synthroid 9. HLD -continue statin Dispo -possible discharge tomorrow
[2017-03-04] MEDS: ATORVASTATIN CA 20 MG TABLET (FP) PO SCH (21:54)
[2017-03-04] MEDS ORDERED: ACETAMINOPHEN 325 MG TABLET (FP) PO PRN (23:07)
[2017-03-05] MEDS: LEVOTHYROXINE NA 75 MCG TABLET (FP) PO SCH (06:37)
[2017-03-05 07:56] LABS: ANION GAP 7 (8-16); CALCIUM 8.1 mg/dL (8.5-10.1); CO2 36 mmol/L (21-32); CREATININE 0.5 mg/dL (0.55-1.02); GLUCOSE,RANDOM 131 mg/dL (74-106)
[2017-03-05] MEDS ORDERED: PT OWN MED DRAWER 7, Y5N ONE (08:47)
--- NOTE | 2017-03-05 08:47 | PN ---
Progress Note (short form) - Note Progress Note: doing well voiding well no fever chills renal us pending pt urologically stable for d/c provided nothing abnl on renal us pt to f/u in officce saturday at 11 am please
[2017-03-05] MEDS: AMINO ACIDS/PROTEIN HYDROLYS 30 ML LIQUID.PKT PO SCH (08:53)
[2017-03-05] MEDS: MULTIVITAMINS (DAILY MVI) TABLET (FP) PO SCH ×2 (08:53→10:00)
[2017-03-05] MEDS: POLYETHYLENE GLYCOL 3350 119 GM BTL PO SCH ×2 (08:53→10:07)
[2017-03-05] MEDS: ASCORBIC ACID 500 MG TABLET (FP) PO SCH ×2 (08:53→10:00)
[2017-03-05] MEDS: FUROSEMIDE 40 MG TABLET (FP) PO SCH ×2 (08:54→10:07)
[2017-03-05] MEDS: ASPIRIN 81 MG CHEWABLE TABLETS PO SCH ×2 (08:54→10:07)
[2017-03-05] MEDS: LOSARTAN POTASSIUM 50 MG TABLET (FP) PO SCH ×2 (08:54→10:07)
[2017-03-05] MEDS: LACTOBACILLUS ACIDOPHILUS 1 EACH TAB (FP) PO SCH ×2 (08:54→10:07)
--- NOTE | 2017-03-05 09:24 | PATH ---
Surgical Pathology Report Patient Name: LUIS GARCIA Med. Rec. #: [id number] /Age/Gender: 1945 (Age: 71) / F Account: [id number] Location: [facility] MED/SURG Taken: 03/02/2017 Received: 03/04/2017 Reported: 03/05/2017 Physicians: Grace Jones M.D. Specimen(s) Received URETERAL STENT Clinical History Stone, left kidney, removal Final Diagnosis FELTER TENNIS BALLS, LEFT URETER, REMOVAL: URETERAL STENT (GROSS ONLY). Electronically Signed Deon Bowen M.D. Gross Description Received fresh, labeled with the patient's name and indicated on the requisition to be a ureteral stent, is a 35 cm in length yellow-green, coiled portion of tubing, consistent with a ureteral stent. No soft tissue is present. No sections are submitted, gross only. /03/04/201703/04/2017
--- NOTE | 2017-03-05 11:54 | DS ---
Physical Examination Vital Signs: Vital Signs Temperature 36.9 C 03/05/17 08:41 Pulse Rate 82 03/05/17 08:41 Respiratory Rate 19 03/05/17 08:41 Blood Pressure 113/51 03/05/17 08:41 O2 Sat by Pulse Oximetry (%) 96 03/04/17 21:00 Labs: CBC, BMP 03/04/17 07:15 03/05/17 06:00 Discharge Summary Reason For Visit: EDEMA DUE TO CONGESTIVE HEART FAILURE Current Active Problems Edema due to congestive heart failure (Acute) Obstructive uropathy (Acute) Condition: Stable - Instructions Diet, Activity, Other Instructions: low salt diet. Up with assistance, further activity per PT at SNF Referrals: Alirio Garcia MD [Primary Care Provider] - Disposition: [facility] - Home Medications Comprehensive Discharge Medication List: Ambulatory Orders Garlic 100 mg PO DAILY 12/11/16 Levothyroxine [Synthroid -] 75 mcg PO DAILY 12/11/16 [place]-3 Fatty Acids/Fish Oil [Fish Oil 1,000 mg Softgel] 1 each PO DAILY Simvastatin 40 mg PO DAILY 12/11/16 Potassium Chloride [K-Dur -] 10 meq PO DAILY tab.ec 12/17/16 Losartan Potassium [Cozaar -] 50 mg PO DAILY 02/21/17 Acetaminophen [Tylenol .Regular Strength -] 650 mg PO Q3H PRN #0 tablet Ascorbic Acid [Vitamin C -] 500 mg PO DAILY tablet 03/05/17 Aspirin [ASA -] 81 mg PO DAILY #1 tab.chew 03/05/17 Collagenase Clostridium Hist. [Santyl -] 1 applic TP DAILY #1 tube 03/05/17 Docusate Sodium [Colace -] 100 mg PO Q8H PRN #0 cap 03/05/17 Furosemide [Lasix -] 40 mg PO DAILY tablet 03/05/17 Hydrocortisone 2.5% Topical Cr [Anusol-Hc -] 1 applic TP BID tube 03/05/17 Multivitamins [Multivit ([facility] Formulary)] 1 tab PO DAILY tab 03/05/17 Nystatin Powder [Nystop Powder -] 1 applic TP DAILY applic 03/05/17 Oxycodone HCl 10 mg PO Q4HWA PRN #0 tab 03/05/17 Polyethylene Glycol 3350 [Miralax 119 gm Btl -] 17 gm PO BID #1 bottle 03/05/17 Silver Sulfadiazine 1% Top Cr [Silvadene -] 1 applic TP DAILY #1 jar 03/05/17
[2017-03-05] MEDS: HYDROCORTISONE 2.5% TOPICAL CREAM 30 GM TUBE TP SCH (13:30)
[2017-03-05] MEDS: COLLAGENASE CLOSTRIDIUM HIST. 30 GRAMS TUBE TP SCH (13:30)
[2017-03-05] MEDS: NYSTATIN POWDER 100,000 UNITS/GM - 15 GM TOPICAL POWDER TP SCH (13:30)
[2017-03-05 15:21] VITALS: BP 122/52; PULSE 84; TEMP 98.4
== END 2017-03-05 18:11 | DRG 853 ==
LOC: JER 11:52 → JERBED 19:11 → J8W 20:54
PROVIDERS: ADMIT Internal Medicine; ATTEND Internal Medicine
PROC: 0TC78ZZ Extirpation of Matter from Left Ureter, Via Natural or Artificial Opening Endoscopic (ICD-10-PCS; principal; 2017-02-27 16:00)
PROC: 0T778DZ Dilation of Left Ureter with Intraluminal Device, Via Natural or Artificial Opening Endoscopic (ICD-10-PCS; 2017-02-27 16:00)
PROC: BT1FZZZ Fluoroscopy of Left Kidney, Ureter and Bladder (ICD-10-PCS; 2017-02-27 16:00)
DX: A41.9 Sepsis, unspecified organism (principal); I50.33 Acute on chronic diastolic (congestive) heart failure; N13.2 Hydronephrosis with renal and ureteral calculous obstruction; Z68.41 Body mass index [BMI] 40.0-44.9, adult; L03.116 Cellulitis of left lower limb; L03.115 Cellulitis of right lower limb; L97.419 Non-pressure chronic ulcer of right heel and midfoot with unspecified severity; N39.0 Urinary tract infection, site not specified; L89.312 Pressure ulcer of right buttock, stage 2; B96.5 Pseudomonas (aeruginosa) (mallei) (pseudomallei) as the cause of diseases classified elsewhere; E66.01 Morbid (severe) obesity due to excess calories; E11.621 Type 2 diabetes mellitus with foot ulcer; J44.9 Chronic obstructive pulmonary disease, unspecified; E87.6 Hypokalemia; E03.9 Hypothyroidism, unspecified; E78.00 Pure hypercholesterolemia, unspecified; Z96.652 Presence of left artificial knee joint; Z87.891 Personal history of nicotine dependence; Z91.14 Patient's other noncompliance with medication regimen; D64.9 Anemia, unspecified; I27.2 Other secondary pulmonary hypertension
CPT/HCPCS: 36415; 36430; 71010-TC; 74177-TC; 76000-TC; 76775-TC; 76856-TC; 80048; 80053; 81003; 81015; 82360; 83605; 83690; 83735; 83880; 84100; 84484; 85025; 85027; 86850; 86900; 86901; 86922; 87040; 87086; 87186; 88300-TC; 93005; 93010; 94010; 94760; 97116-GP; 97161-GP; 99283-25; J1644; P9038; P9058

== ENCOUNTER 2018-05-24 14:50 | Inpatient (IN) | payer OTHER, MEDICARE ==
--- NOTE | 2018-05-24 15:03 | PDOC ---
History of Present Illness - General Chief Complaint: Wound Stated Complaint: FT LACERATION Time Seen by Provider: 05/24/18 15:03 - History of Present Illness Initial Comments: 73 year old female with PMHx of CHF, pressure ulcers, NIDDM, and Morbid Obesity presenting with ulcer and pain in her right heal that has recently started to drain. She noted this two days ago when her brother took a look at it. Last night, her friend who is an aide bandaged it up but recommended that she come to the ED. She had pressure ulcers in the past operated on by Dr. Messer and her heel was operated on by Dr. Sheridan. Denies fevers, chills. nausea, vomiting, diarrhea, chest pain, or other symptoms. Her PCP Jose and her line walker is Dr. Sheridan. 05/24/18 15:57 Past History - Past Medical History Allergies/Adverse Reactions: Allergies Allergy/AdvReac Type Severity Reaction Status Date / Time codeine [Codeine] Allergy Verified 05/24/18 14:54 shellfish derived Allergy Verified 05/24/18 14:54 tramadol AdvReac Mild Verified 05/24/18 14:54 Home Medications: Ambulatory Orders Garlic 100 mg PO DAILY 12/11/16 Levothyroxine [Synthroid -] 75 mcg PO DAILY 12/11/16 [place]-3 Fatty Acids/Fish Oil [Fish Oil 1,000 mg Softgel] 1 each PO DAILY Simvastatin 40 mg PO DAILY 12/11/16 Potassium Chloride [K-Dur -] 10 meq PO DAILY tab.ec 12/17/16 Losartan Potassium [Cozaar -] 50 mg PO DAILY 02/21/17 Acetaminophen [Tylenol .Regular Strength -] 650 mg PO Q3H PRN #0 tablet Ascorbic Acid [Vitamin C -] 500 mg PO DAILY tablet 03/05/17 Aspirin [ASA -] 81 mg PO DAILY #1 tab.chew 03/05/17 Docusate Sodium [Colace -] 100 mg PO Q8H PRN #0 cap 03/05/17 Furosemide [Lasix -] 40 mg PO DAILY tablet 03/05/17 Hydrocortisone 2.5% Topical Cr [Anusol-Hc -] 1 applic TP BID tube 03/05/17 Multivitamins [Multivit ([facility] Formulary)] 1 tab PO DAILY tab 03/05/17 Nystatin Powder [Nystop Powder -] 1 applic TP DAILY applic 03/05/17 Oxycodone HCl 10 mg PO Q4HWA PRN #0 tab 03/05/17 Polyethylene Glycol 3350 [Miralax 119 gm Btl -] 17 gm PO BID #1 bottle 03/05/17 Silver Sulfadiazine 1% Top Cr [Silvadene -] 1 applic TP DAILY #1 jar 03/05/17 Anemia: No COPD: No CHF: Yes Diabetes: Yes (IDDM) Disorders: Yes (kidney stones) HTN: Yes Hypercholesterolemia: Yes Thyroid Disease: Yes (hypo) - Surgical History Orthopedic Surgery: Yes (LT PARTIAL KNEE REPLACEMENT) - Immunization History Immunization Up to Date: Yes - Suicide/Smoking/Psychosocial Hx Smoking Status: No Smoking History: Former smoker Have you smoked in the past 12 months: No Number of Cigarettes Smoked Daily: 1 If you are a former smoker, when did you quit?: 1981 Information on smoking cessation initiated: No Hx Alcohol Use: No Drug/Substance Use Hx: No Substance Use Type: None Hx Substance Use Treatment: No Review of Systems - Review of Systems Constitutional: No: Chills, Diaphoresis, Fever, Loss of Appetite HEENTM: No: Blurred Vision, Tearing Respiratory: No: Cough, Orthopnea, Shortness of Breath Cardiac (ROS): No: Edema, Irregular Heart Rate, Palpitations, Syncope ABD/GI: No: Diarrhea, Nausea, Poor Appetite : No: Dysuria, Discharge *Physical Exam - Vital Signs Last Vital Signs Temp Pulse Resp BP Pulse Ox 97.3 F L 99 H 20 143/69 92 L 05/24/18 14:55 05/24/18 14:55 05/24/18 14:55 05/24/18 14:55 05/24/18 14:55 - Physical Exam General Appearance: Yes: Nourished, Appropriately Dressed, Obese. No: Apparent Distress HEENT: positive: EOMI, NASH, Normal ENT Inspection, Normal Voice Neck: positive: Trachea midline, Normal Thyroid, Other (bilateal lymphadenopathy ). negative: Tender Respiratory/Chest: positive: Lungs Clear, Normal Breath Sounds. negative: Chest Tender, Respiratory Distress, Accessory Muscle Use Cardiovascular: positive: Regular Rhythm, Regular Rate Gastrointestinal/Abdominal: positive: Normal Bowel Sounds, Flat. negative: Tender Musculoskeletal: positive: Normal Inspection Extremity: positive: Normal Capillary Refill, Normal Inspection, Normal Range of Motion. negative: Tender Integumentary: positive: Normal Color, Dry, Warm Neurologic: positive: Fully Oriented, Alert, Normal Mood/Affect, Normal Response , Motor Strength 5/5 Moderate Sedation - Procedure Monitoring Vital Signs: Procedure Monitoring Vital Signs Temperature 97.3 F L 05/24/18 14:55 Pulse Rate 99 H 05/24/18 14:55 Respiratory Rate 20 05/24/18 14:55 Blood Pressure 143/69 05/24/18 14:55 O2 Sat by Pulse Oximetry (%) 92 L 05/24/18 14:55 ED Treatment Course - LABORATORY CBC & Chemistry Diagram: 05/24/18 15:57 05/24/18 15:57 Medical Decision Making - Medical Decision Making 73 year old female NIDDM presenting with right heal ulcer draining, pain, and elevated WBC. XR negative for osteo on our read. EKG demonstrating rate 95, OR 174, QRS 86, QTc 464, left axis deviation, NSR and no ST or T wave changes. Given Vanc and Pseudomonal dose Zosyn and admitted to Dr. Griggs for med surg admission. 05/24/18 17:20 *DC/Admit/Observation/Transfer Diagnosis at time of Disposition: Cellulitis of right leg Diabetic foot ulcer Qualifiers: Diabetic foot ulcer location: heel Diabetes mellitus type: type 2 Laterality: right Non-pressure ulcer stage: unspecified non-pressure ulcer stage Qualified Code(s): E11.621 - Type 2 diabetes mellitus with foot ulcer; L97.419 - Non- pressure chronic ulcer of right heel and midfoot with unspecified severity - Discharge Dispostion Condition at time of disposition: Stable Decision to Admit order: Yes - Referrals Referrals: Alirio Garcia MD [Primary Care Provider] - - Patient Instructions - Post Discharge Activity
--- NOTE | 2018-05-24 15:47 | PDOC ---
Attending Attestation - HPI HPI: 05/24/18 17:22 73 year old female with past medical history of CHF, COPD, diabetes, and lower extremity cellulitis who presents to the ED with left heel draining ulcer for the past two days. She reports her ulcer kept draining despite having her neighbor re-bandage it. She denies any associated fevers, chills, nausea, vomiting, diarrhea, cough, SOB, chest pain or urinary symptoms. - Medical Decision Making 05/24/18 17:22 Documentation prepared by Lillie Rachel, acting as vice president medical affairs for Chioma Jay MD. <Lillie Rachel - Last Filed: 05/24/18 17:22> - Resident Resident Name: Marge Draper - ED Attending Attestation I have performed the following: I have examined & evaluated the patient, The case was reviewed & discussed with the resident, I agree w/resident's findings & plan, Exceptions are as noted - Physicial Exam PE: GENERAL: Awake, alert, and fully oriented, in no acute distress HEAD: No signs of trauma EYES: PERRLA, EOMI, sclera anicteric, conjunctiva clear ENT: Auricles normal inspection, hearing grossly normal, nares patent, oropharynx clear without exudates. Moist mucosa NECK: Normal ROM, supple, no lymphadenopathy, JVD, or masses LUNGS: Breath sounds equal, clear to auscultation bilaterally. No wheezes, and no crackles HEART: Regular rate and rhythm, normal S1 and S2, no murmurs, rubs or gallops ABDOMEN: Soft, nontender, normoactive bowel sounds. No guarding, no rebound. No masses EXTREMITIES: R foot with well-healed scar, small open lesion at the tip of the scar, with malodorous cloudy drainage. +Erythema to R lower leg and foot, + warmth. +Mild erythema to L fisher, no warmth, no tenderness. Remainder of extremities normal range of motion, no edema. No clubbing or cyanosis. No cords , erythema, or tenderness NEUROLOGICAL: Cranial nerves II through XII grossly intact. Normal speech, normal gait SKIN: Warm, Dry, normal turgor, no rashes or lesions noted. - Medical Decision Making Pt with open lesion, surrounding cellulitis. Will give broad spectrum abx to cover for skin cee and pseudomonas. Admit. <Chioma Jay - Last Filed: 05/24/18 17:51>
[2018-05-24 16:08] LABS: BASO % 0.3 % (0-2.0); EOS % 1.3 % (0-4.5); HEMATOCRIT 35.4 % (32.4-45.2); HEMOGLOBIN 11.6 GM/dL (10.7-15.3); LYMPH % 9.7 % (8-40); MCH 28.8 pg (25.7-33.7); MCHC 32.6 g/dl (32.0-36.0); MEAN CELL VOLUME 88.3 fl (80-96); MEAN PLT VOLUME 9.3 fl (7.5-11.1); MONO % 5.6 % (3.8-10.2); NEUT % 83.1 % (42.8-82.8); PLATELET COUNT 259 K/MM3 (134-434); RBC 4.01 M/mm3 (3.60-5.2); RDW 16.2 % (11.6-15.6); WHITE BLOOD COUNT 13.9 K/mm3 (4.0-10.0)
[2018-05-24 16:29] LABS: INR 0.98 (0.83-1.09); PROTHROMBIN TIME (PATIENT) 11.6 SEC (9.7-13.0)
[2018-05-24 16:51] LABS: ALBUMIN 3.2 g/dl (3.4-5.0); ALK PHOS 106 U/L (45-117); ANION GAP 11 MMOL/L (8-16); BILIRUBIN,TOTAL 0.3 mg/dL (0.2-1); BLOOD UREA NITROGEN 21 mg/dL (7-18); CALCIUM 8.6 mg/dL (8.5-10.1); CHLORIDE 101 mmol/L (98-107); CO2 28 mmol/L (21-32); CREATININE 0.8 mg/dL (0.55-1.3); GLUCOSE,RANDOM 147 mg/dL (74-106); POTASSIUM 4.2 mmol/L (3.5-5.1); SGOT/AST 19 U/L (15-37); SGPT/ALT 16 U/L (13-61); SODIUM 139 mmol/L (136-145); TOT PROT 6.9 g/dl (6.4-8.2)
[2018-05-24] MEDS ORDERED: VANCOMYCIN 1,000 MG in DEXTROSE 5%-WATER - 250 ML IVPB ONE (17:03)
[2018-05-24] MEDS ORDERED: PIPERACILLIN/TAZOB 3.375 GM 3.375 GM in DEXTROSE 5%-WATER - 50 ML IVPB ONE (17:03)
[2018-05-24] MEDS ORDERED: VANCOMYCIN 1,500 MG in DEXTROSE 5%-WATER - 500 ML IVPB ONE (17:04)
[2018-05-24] MEDS ORDERED: PIPERACILLIN/TAZOB 4.5 GM 4.5 GM in DEXTROSE 5%-WATER 100 ML IVPB ONE (17:09)
[2018-05-24] MEDS ORDERED: PIPERACILLIN/TAZOB 4.5 GM 4.5 GM/100 ML BAG IVPB ONE (17:34)
[2018-05-24] MEDS ORDERED: DOCUSATE SODIUM 100 MG CAPSULE (FP) PO PRN (17:55)
[2018-05-24] MEDS ORDERED: ONDANSETRON 4 MG/2 ML VIAL IVPUSH PRN (17:57)
[2018-05-24] MEDS ORDERED: ACETAMINOPHEN 325 MG TABLET (FP) PO PRN (17:57)
--- NOTE | 2018-05-24 18:08 | HP ---
Admitting History and Physical - Primary Care Physician PCP: Alirio Garcia - Admission Chief Complaint: My foot is infected History of Present Illness: Ms Vázquez is a very pleasant 73 year old female coming in complaining of a right heel wound. She says she has been doing well since last admitted, she has been able to be home and has come off of a lot of medications. However on Saturday she noted that she started having R heel pain. She saw that it was bleeding and she placed a barrier bandage on it to help cushion it. She says at first it helped, however later she noted more drainage. Today she said it was draining a lot of yellowish fluid. She also developed redness on her legs, R>L. Because of this she came in for further evaluation. She endorses chills but says this is chronic. She denies fevers, lightheadedness, dizziness, passing out , chest pain or pressure, shortness of breath, nausea, vomiting, diarrhea, constipation, difficulty or pain on urination. She has chronic swelling and this is unchanged but the redness developed today. History Source: Patient Limitations to Obtaining History: No Limitations - Past Medical History Cardiovascular: Yes: CHF, HTN Pulmonary: Yes: COPD, Sleep Apnea Renal/: Yes: Renal Calculi (s/p lithotripsy) Heme/Onc: Yes: Anemia Musculoskeletal: Yes: Chronic low back pain Endocrine: Yes: Diabetes Mellitus, Hypothyroidism, Other (morbid obesity) - Past Surgical History Past Surgical History: Yes: Joint Replacement (left knee (partial replacement)) - Smoking History Smoking history: Former smoker Have you smoked in the past 12 months: No Aproximately how many cigarettes per day: 1 If you are a former smoker, when did you quit?: 1981 - Alcohol/Substance Use Hx Alcohol Use: No History of Substance Use: reports: None - Social History Usual Living Arrangement: Yes: Other (with brother) ADL: Family Assistance 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 History of Recent Travel: No Home Medications - Allergies Allergies/Adverse Reactions: Allergies Allergy/AdvReac Type Severity Reaction Status Date / Time codeine [Codeine] Allergy Verified 05/24/18 14:54 shellfish derived Allergy Verified 05/24/18 14:54 tramadol AdvReac Mild Verified 05/24/18 14:54 - Home Medications Home Medications: Ambulatory Orders Garlic 100 mg PO DAILY 12/11/16 Levothyroxine [Synthroid -] 75 mcg PO DAILY 12/11/16 [place]-3 Fatty Acids/Fish Oil [Fish Oil 1,000 mg Softgel] 1 each PO DAILY Simvastatin 40 mg PO DAILY 12/11/16 Potassium Chloride [K-Dur -] 10 meq PO DAILY tab.ec 12/17/16 Losartan Potassium [Cozaar -] 50 mg PO DAILY 02/21/17 Acetaminophen [Tylenol .Regular Strength -] 650 mg PO Q3H PRN #0 tablet Ascorbic Acid [Vitamin C -] 500 mg PO DAILY tablet 03/05/17 Aspirin [ASA -] 81 mg PO DAILY #1 tab.chew 03/05/17 Docusate Sodium [Colace -] 100 mg PO Q8H PRN #0 cap 03/05/17 Furosemide [Lasix -] 40 mg PO DAILY tablet 03/05/17 Hydrocortisone 2.5% Topical Cr [Anusol-Hc -] 1 applic TP BID tube 03/05/17 Multivitamins [Multivit ([facility] Formulary)] 1 tab PO DAILY tab 03/05/17 Nystatin Powder [Nystop Powder -] 1 applic TP DAILY applic 03/05/17 Oxycodone HCl 10 mg PO Q4HWA PRN #0 tab 03/05/17 Polyethylene Glycol 3350 [Miralax 119 gm Btl -] 17 gm PO BID #1 bottle 03/05/17 Silver Sulfadiazine 1% Top Cr [Silvadene -] 1 applic TP DAILY #1 jar 03/05/17 Family Disease History - Family Disease History Family Disease History: Heart Disease: Mother ( s: CAD/Dementia), CA: Father ( in late 80's: h/o colon ca), Other: Brother (Alive: HTN/DM II) Review of Systems Findings/Remarks: Full review of systems obtained, as per HPI and otherwise negative Physical Examination Vital Signs: Vital Signs Temperature 36.3 C L 05/24/18 14:55 Pulse Rate 99 H 05/24/18 14:55 Respiratory Rate 20 05/24/18 14:55 Blood Pressure 143/69 05/24/18 14:55 O2 Sat by Pulse Oximetry (%) 92 L 05/24/18 14:55 Constitutional: Yes: No Distress, Calm, Obese Eyes: Yes: Conjunctiva Clear, EOM Intact, PERRL HENT: Yes: Atraumatic, Normocephalic Cardiovascular: Yes: Regular Rate and Rhythm. No: Gallop, Murmur Respiratory: Yes: Regular, CTA Bilaterally. No: Rales, Rhonchi, Wheezes Gastrointestinal: Yes: Normal Bowel Sounds, Soft. No: Distention, Tenderness Extremities: Yes: Erythema (R>L), Other (open wound on R heel, draining serous fluid. No eschar noted) Edema: Yes Edema: LLE: 2+, RLE: 2+ Labs: CBC, BMP 05/24/18 15:57 05/24/18 15:57 Imaging - Results Chest X-ray: Image Reviewed X-ray: Image Reviewed Problem List - Problems (1) Cellulitis of right leg Assessment/Plan: -patient with new onset cellulitis -some underlying changes of chronic edema -admit to med/surg -given vancomycin and zosyn in the ED, will continue -consult ID Code(s): L03.115 - CELLULITIS OF RIGHT LOWER LIMB (2) Diabetic foot ulcer Assessment/Plan: -ulceration occurring at same place as prior -unclear how deep, but draining serous fluid -x-ray reviewed but awaiting official read -destruction of heel noted on both x-rays from today and last year, will await official read to see if erosion has progressed -continue vancomycin and zosyn -follow up ESR and CRP -podiatry consult Code(s): E11.621 - TYPE 2 DIABETES MELLITUS WITH FOOT ULCER; L97.509 - NON- PRESSURE CHRONIC ULCER OTH PRT UNSP FOOT W UNSP SEVERITY Qualifiers: Diabetic foot ulcer location: heel Diabetes mellitus type: type 2 Laterality: right Non-pressure ulcer stage: unspecified non-pressure ulcer stage Qualified Code(s): E11.621 - Type 2 diabetes mellitus with foot ulcer; L97.419 - Non-pressure chronic ulcer of right heel and midfoot with unspecified severity (3) Benign hypertension Assessment/Plan: -continue lasix -monitor Code(s): I10 - ESSENTIAL (PRIMARY) HYPERTENSION (4) Diabetes Assessment/Plan: -check Hgb A1c -diabetic diet -continue metformin -FSBS and SSI Code(s): E11.9 - TYPE 2 DIABETES MELLITUS WITHOUT COMPLICATIONS Qualifiers: Diabetes mellitus type: type 2 Diabetes mellitus superintendent terminal insulin use: without superintendent terminal use Diabetes mellitus complication status: with skin complications Diabetes mellitus complication detail: with foot ulcer Qualified Code(s): E11.621 - Type 2 diabetes mellitus with foot ulcer; L97.509 - Non-pressure chronic ulcer of other part of unspecified foot with unspecified severity (5) HLD (hyperlipidemia) Assessment/Plan: -continue lipitor Code(s): E78.5 - HYPERLIPIDEMIA, UNSPECIFIED (6) Hypothyroid Assessment/Plan: -continue synthroid Code(s): E03.9 - HYPOTHYROIDISM, UNSPECIFIED (7) Morbid obesity Assessment/Plan: -outpatient weight loss per Dr Garcia Code(s): E66.01 - MORBID (SEVERE) OBESITY DUE TO EXCESS CALORIES
[2018-05-24] MEDS: LACTOBACILLUS ACIDOPHILUS 1 TABLET PO SCH (19:38)
[2018-05-24] MEDS ORDERED: ATORVASTATIN CA 10 MG TABLET (FP) ONE (22:58)
[2018-05-24] MEDS: ATORVASTATIN CA 20 MG TABLET (FP) PO SCH (23:04)
[2018-05-24] MEDS ORDERED: INSULIN (NOVOLOG) ASPART 100 UNITS/ML 10ML VIAL ONE (23:06)
[2018-05-24] MEDS: INSULIN SLIDING SCALE (NOVOLOG) 1 VIAL SQ SCH (23:06)
[2018-05-25] MEDS ORDERED: PIPERACILLIN/TAZOB 3.375 GM 3.375 GM in DEXTROSE 5%-WATER - 50 ML IVPB SCH ×2 (02:00→18:00)
[2018-05-25] MEDS ORDERED: PIPERACILLIN/TAZOB 3.375 GM 3.375 GM/50 ML BAG IVPB ONE (02:49)
[2018-05-25 06:39] LABS: BASO % 0.1 % (0-2.0); EOS % 0.9 % (0-4.5); HEMATOCRIT 34.4 % (32.4-45.2); HEMOGLOBIN 10.7 GM/dL (10.7-15.3); LYMPH % 8.1 % (8-40); MCH 27.4 pg (25.7-33.7); MCHC 31.2 g/dl (32.0-36.0); MEAN CELL VOLUME 87.6 fl (80-96); MEAN PLT VOLUME 9.7 fl (7.5-11.1); MONO % 1.6 % (3.8-10.2); NEUT % 89.3 % (42.8-82.8); PLATELET COUNT 257 K/MM3 (134-434); RBC 3.93 M/mm3 (3.60-5.2); RDW 16.2 % (11.6-15.6); WHITE BLOOD COUNT 13.3 K/mm3 (4.0-10.0)
[2018-05-25] MEDS ORDERED: LEVOTHYROXINE NA 25 MCG TABLET (FP) ONE (06:53)
[2018-05-25] MEDS ORDERED: metFORMIN HCL 500 MG TABLET (FP) ONE (06:53)
[2018-05-25] MEDS ORDERED: INSULIN (NOVOLOG) ASPART 100 UNITS/ML 10ML VIAL ONE (06:54)
[2018-05-25] MEDS: metFORMIN HCL 500 MG TABLET (FP) PO SCH ×2 (06:58→16:40)
[2018-05-25] MEDS: LEVOTHYROXINE NA 75 MCG TABLET (FP) PO SCH (07:00)
[2018-05-25] MEDS: INSULIN SLIDING SCALE (NOVOLOG) 1 VIAL SQ SCH ×4 (07:00→21:48)
[2018-05-25 07:03] LABS: ANION GAP 9 MMOL/L (8-16); BLOOD UREA NITROGEN 18 mg/dL (7-18); CALCIUM 8.1 mg/dL (8.5-10.1); CHLORIDE 100 mmol/L (98-107); CO2 28 mmol/L (21-32); CREATININE 0.9 mg/dL (0.55-1.3); GLUCOSE,RANDOM 175 mg/dL (74-106); MAGNESIUM 1.7 mg/dL (1.8-2.4); PHOSPHOROUS 3.5 mg/dL (2.5-4.9); POTASSIUM 3.6 mmol/L (3.5-5.1); SODIUM 137 mmol/L (136-145)
[2018-05-25] MEDS ORDERED: MAGNESIUM SULF 50% (8.12 MEQ/2 ML-1 GM VIAL) IVPB ONE (08:03)
[2018-05-25] MEDS ORDERED: BENZOCAINE/MENTH/CETYLPYRD CL 1 EACH LOZENGE MM PRN (08:37)
--- NOTE | 2018-05-25 08:43 | PN ---
Progress Note, Physician Chief Complaint: Ms Vázquez says she was hot overnight but otherwise is without complaint. No cp , sob, n/v. - Current Medication List Current Medications: Active Medications Acetaminophen (Tylenol -) 650 mg PO Q4H PRN PRN Reason: PAIN 1-3 Aspirin (Asa -) 81 mg PO DAILY [facility] Atorvastatin Calcium (Lipitor -) 20 mg PO HS [facility] Last Admin: 05/24/18 23:04 Dose: 20 mg Docusate Sodium (Colace -) 100 mg PO Q8H PRN PRN Reason: CONSTIPATION Enoxaparin Sodium (Lovenox -) 40 mg SQ DAILY [facility] Furosemide (Lasix -) 40 mg PO DAILY [facility] Vancomycin HCl 1,000 mg/ (Dextrose) 250 mls @ 166.667 mls/hr IVPB Q12H [facility]; Protocol Piperacillin Sod/Tazobactam (Sod 3.375 gm/ Dextrose) 50 mls @ 100 mls/hr IVPB Q8H-IV [facility]; Protocol Insulin Aspart (Novolog Vial Sliding Scale -) 1 vial SQ ACHS [facility]; Protocol Last Admin: 05/25/18 07:00 Dose: 2 units Lactobacillus Acidophilus (Bacid -) 1 tab PO DAILY [facility] Last Admin: 05/24/18 19:38 Dose: 1 tab Levothyroxine Sodium (Synthroid -) 75 mcg PO 0700 [facility] Last Admin: 05/25/18 07:00 Dose: 75 mcg Magnesium Sulfate (Magnesium Sulfate) 2 gm IVPB ONCE ONE Stop: 05/25/18 08:04 Metformin HCl (Glucophage -) 500 mg PO BID@0700,1630 [facility] Last Admin: 05/25/18 06:58 Dose: 500 mg Multivitamins/Minerals/Vitamin C (Tab-A-Vit -) 1 tab PO DAILY [facility] Ondansetron HCl (Zofran Injection) 4 mg IVPUSH Q6H PRN PRN Reason: NAUSEA Potassium Chloride (K-Dur -) 20 meq PO DAILY [facility] - Objective Vital Signs: Vital Signs Temperature 36.9 C 05/25/18 07:53 Pulse Rate 96 H 05/25/18 07:53 Respiratory Rate 16 05/25/18 07:53 Blood Pressure 105/64 05/25/18 07:53 O2 Sat by Pulse Oximetry (%) 85 L 05/25/18 07:53 Constitutional: Yes: No Distress, Calm, Obese Cardiovascular: Yes: Regular Rate and Rhythm. No: Gallop, Murmur, Rub Respiratory: Yes: Regular, CTA Bilaterally. No: Rales, Rhonchi, Wheezes Gastrointestinal: Yes: Normal Bowel Sounds, Soft. No: Distention, Tenderness Extremities: Yes: Erythema (bilateral, equal today), Other (R heel ulceration with serous drainage) Edema: Yes Edema: LLE: 2+, RLE: 2+ Labs: CBC, BMP 05/25/18 06:00 05/25/18 06:00 INR, PTT INR 0.98 (0.83-1.09) 05/24/18 15:57 Problem List - Problems (1) Cellulitis of right leg Code(s): L03.115 - CELLULITIS OF RIGHT LOWER LIMB (2) Diabetic foot ulcer Code(s): E11.621 - TYPE 2 DIABETES MELLITUS WITH FOOT ULCER; L97.509 - NON- PRESSURE CHRONIC ULCER OTH PRT UNSP FOOT W UNSP SEVERITY Qualifiers: Diabetic foot ulcer location: heel Diabetes mellitus type: type 2 Laterality: right Non-pressure ulcer stage: unspecified non-pressure ulcer stage Qualified Code(s): E11.621 - Type 2 diabetes mellitus with foot ulcer; L97.419 - Non-pressure chronic ulcer of right heel and midfoot with unspecified severity (3) Benign hypertension Code(s): I10 - ESSENTIAL (PRIMARY) HYPERTENSION (4) Diabetes Code(s): E11.9 - TYPE 2 DIABETES MELLITUS WITHOUT COMPLICATIONS Qualifiers: Diabetes mellitus type: type 2 Diabetes mellitus terminal superintendent insulin use: without terminal superintendent use Diabetes mellitus complication status: with skin complications Diabetes mellitus complication detail: with foot ulcer Qualified Code(s): E11.621 - Type 2 diabetes mellitus with foot ulcer; L97.509 - Non-pressure chronic ulcer of other part of unspecified foot with unspecified severity (5) HLD (hyperlipidemia) Code(s): E78.5 - HYPERLIPIDEMIA, UNSPECIFIED (6) Hypothyroid Code(s): E03.9 - HYPOTHYROIDISM, UNSPECIFIED (7) Morbid obesity Code(s): E66.01 - MORBID (SEVERE) OBESITY DUE TO EXCESS CALORIES Assessment/Plan (1) Cellulitis of right leg Assessment/Plan: -ID consulted -continue vancomycin and zosyn currently -both legs erythematous today, but suspect partially from chronic venous stasis changes Code(s): L03.115 - CELLULITIS OF RIGHT LOWER LIMB (2) Diabetic foot ulcer Assessment/Plan: -ulceration occurring at same place as prior -unclear how deep, but draining serous fluid -x-ray read reviewed -antibiotics as above -podiatry consulted Code(s): E11.621 - TYPE 2 DIABETES MELLITUS WITH FOOT ULCER; L97.509 - NON- PRESSURE CHRONIC ULCER OTH PRT UNSP FOOT W UNSP SEVERITY Qualifiers: Diabetic foot ulcer location: heel Diabetes mellitus type: type 2 Laterality: right Non-pressure ulcer stage: unspecified non-pressure ulcer stage Qualified Code(s): E11.621 - Type 2 diabetes mellitus with foot ulcer; L97.419 - Non-pressure chronic ulcer of right heel and midfoot with unspecified severity (3) Benign hypertension Assessment/Plan: -continue lasix -monitor Code(s): I10 - ESSENTIAL (PRIMARY) HYPERTENSION (4) Diabetes Assessment/Plan: -Hgb A1c 7.8 -diabetic diet -continue metformin -FSBS and SSI Code(s): E11.9 - TYPE 2 DIABETES MELLITUS WITHOUT COMPLICATIONS Qualifiers: Diabetes mellitus type: type 2 Diabetes mellitus halfway insulin use: without halfway use Diabetes mellitus complication status: with skin complications Diabetes mellitus complication detail: with foot ulcer Qualified Code(s): E11.621 - Type 2 diabetes mellitus with foot ulcer; L97.509 - Non-pressure chronic ulcer of other part of unspecified foot with unspecified severity (5) HLD (hyperlipidemia) Assessment/Plan: -continue lipitor Code(s): E78.5 - HYPERLIPIDEMIA, UNSPECIFIED (6) Hypothyroid Assessment/Plan: -continue synthroid Code(s): E03.9 - HYPOTHYROIDISM, UNSPECIFIED (7) Morbid obesity Assessment/Plan: -outpatient weight loss per Dr Garcia Code(s): E66.01 - MORBID (SEVERE) OBESITY DUE TO EXCESS CALORIES
[2018-05-25] MEDS ORDERED: ENOXAPARIN NA (PORCINE) 40 MG/0.4 ML DISP.SYRIN SQ ONE (08:56)
[2018-05-25] MEDS ORDERED: POTASSIUM CHLORIDE TABS 20 MEQ TABLET.ER (FP) PO ONE (08:56)
[2018-05-25] MEDS ORDERED: ASPIRIN 81 MG CHEWABLE TABLETS ONE (08:56)
[2018-05-25] MEDS ORDERED: FUROSEMIDE 40 MG TABLET (FP) ONE (08:56)
[2018-05-25] MEDS ORDERED: MAGNESIUM 1GM/D5W - 2 GM/200 ML IVPB IVPB ONE (08:57)
[2018-05-25] MEDS: FUROSEMIDE 40 MG TABLET (FP) PO SCH (08:59)
[2018-05-25] MEDS: ASPIRIN 81 MG CHEWABLE TABLETS PO SCH (08:59)
[2018-05-25] MEDS: POTASSIUM CHLORIDE TABS 20 MEQ TABLET.ER (FP) PO SCH (08:59)
[2018-05-25] MEDS: ENOXAPARIN NA (PORCINE) 40 MG/0.4 ML DISP.SYRIN SQ SCH (08:59)
[2018-05-25] MEDS: LACTOBACILLUS ACIDOPHILUS 1 TABLET PO SCH (10:17)
[2018-05-25] MEDS: MULTIVITAMINS (DAILY MVI) TABLET (FP) PO SCH (10:17)
--- NOTE | 2018-05-25 10:49 | PN ---
Progress Note (short form) - Note Progress Note: Chief Complaint: foot wound History of Present Illness: 73 yo female here with non healing foot wound, redness of le's. No cp, sob, palps, dizzy, loc, pnd, orthopnea, le edema. Getting abx for le cellulitis. PMH: obesity mixed diast/syst chf HTN - Past Medical History Cardio/Vascular: Yes: CHF, HTN Pulmonary: Yes: COPD, Sleep Apnea Renal/: Yes: Renal Calculi (s/p lithotripsy) Musculoskeletal: Yes: Chronic low back pain Endocrine: Yes: Diabetes Mellitus, Hypothyroidism, Other (morbid obesity) - Past Surgical History Past Surgical History: Yes: Joint Replacement (left knee (partial replacement)) - Alcohol/Substance Use Hx Alcohol Use: No History of Substance Use: reports: None - Smoking History Smoking history: Former smoker Have you smoked in the past 12 months: No Aproximately how many cigarettes per day: 1 If you are a former smoker, when did you quit?: 1981 - Social History ADL: Independent 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 History of Recent Travel: No Home Medications - Allergies Allergies/Adverse Reactions: Ambulatory Orders Garlic 1,200 mg PO DAILY 12/11/16 Levothyroxine [Synthroid -] 75 mcg PO DAILY 12/11/16 [place]-3 Fatty Acids/Fish Oil [Fish Oil 1,000 mg Softgel] 1 each PO DAILY Simvastatin 40 mg PO DAILY 12/11/16 Potassium Chloride [K-Dur -] 10 meq PO DAILY tab.ec 12/17/16 Aspirin [ASA -] 81 mg PO DAILY #1 tab.chew 03/05/17 Docusate Sodium [Colace -] 100 mg PO Q8H PRN #0 cap 03/05/17 Furosemide [Lasix -] 40 mg PO DAILY tablet 03/05/17 Multivitamins [Multivit ([facility] Formulary)] 1 tab PO DAILY tab 03/05/17 metFORMIN HCL [Glucophage -] 500 mg PO BID 05/25/18 ros: per hpi; no cough, nvd, wt loss, reyes, vision changes, muscle aches, nasal congestion Family Disease History - Family Disease History Family Disease History: Heart Disease: Mother, CA: Father (colon) Vital Signs: Vital Signs Period Temp Pulse Resp BP Sys/Donohue Pulse Ox Last 24 Hr 97.3 F-98.4 F 96-100 16-20 105-143/47-69 85-92 calm, nad no icterus/xanthelasma no JVD no carotid bruit RRR, decr intensity (habitus), no murmur/gallop; PMI not palpable abdomen very obese, TDS for masses/pulsation--none appreciated; nontender; not distended + normal BS trace le edema bilat pretib, b/l erythema of shins/feet A and O x3, normal affect not agitated pos dp pt no carotid bruits no jaundice diaphoresis - Other Data Labs, Other Data: Current Medications Generic Name Dose Route Start Last Admin Trade Name Freq PRN Reason Stop Dose Admin Acetaminophen 650 mg 05/24/18 17:57 Tylenol - PO Q4H PRN PAIN 1-3 Aspirin 81 mg 05/25/18 10:00 05/25/18 08:59 Asa - PO 81 mg DAILY LISA Administration Atorvastatin Calcium 20 mg 05/24/18 22:00 05/24/18 23:04 Lipitor - PO 20 mg HS LISA Administration Benzocaine/Menthol 1 each 05/25/18 08:37 Cepacol Lozenge - MM PRN PRN SORE THROAT Docusate Sodium 100 mg 05/24/18 17:55 Colace - PO Q8H PRN CONSTIPATION Enoxaparin Sodium 40 mg 05/25/18 10:00 05/25/18 08:59 Lovenox - SQ 40 mg DAILY [facility] Administration Furosemide 40 mg 05/25/18 10:00 05/25/18 08:59 Lasix - PO 40 mg DAILY [facility] Administration Vancomycin HCl 1,000 mg/ 250 mls @ 166.667 mls/hr 05/25/18 06:00 Dextrose IVPB Q12H [facility] Protocol Piperacillin Sod/Tazobactam 50 mls @ 100 mls/hr 05/25/18 02:00 Sod 3.375 gm/ Dextrose IVPB Q8H-IV [facility] Protocol Insulin Aspart 1 vial 05/24/18 22:00 05/25/18 07:00 Novolog Vial Sliding Scale - SQ 2 units ACHS [facility] Administration Protocol Lactobacillus Acidophilus 1 tab 05/24/18 18:30 05/25/18 10:17 Bacid - PO 1 tab DAILY [facility] Administration Levothyroxine Sodium 75 mcg 05/25/18 07:00 12/02/18 07:00 Synthroid - PO 75 mcg 0700 [facility] Administration Metformin HCl 500 mg 05/25/18 07:00 05/25/18 06:58 Glucophage - PO 500 mg BID@0700,1630 [facility] Administration Multivitamins/Minerals/Vitamin C 1 tab 05/25/18 10:00 05/25/18 10:17 Tab-A-Vit - PO 1 tab DAILY [facility] Administration Ondansetron HCl 4 mg 05/24/18 17:57 Zofran Injection IVPUSH Q6H PRN NAUSEA Potassium Chloride 20 meq 05/25/18 10:00 05/25/18 08:59 K-Dur - PO 20 meq DAILY [facility] Administration stress MPI 06/08: no ischemic EKG changes. nl perfusion. EF 45%, global. Echo 10/2016: tds; low nl lvef, nl rv, mild lae, mod tr, rvsp 40-50 Echo 02/2016: suboptimal. grossly nl lv size. Mild-mod LV dysfunction. RV not well seen. Mild ARLYN. Mod TR. RVSP 40-50. Small effusion < 1 cm. CXR: no sig chf ecg: sr, nl intervals, no ischemic changes Assessment/Plan 73 yo female here with non healing foot wound, redness of le's. le cellulitis: -abx per ID chronic diast chf: - preserved LVEF (11/07 echo) with no signif valve dysfunction and only mild-mod pulm HTN then - currently vol stable, cont lasix po. check updated echo. HTN - bp overall controlled, stable - cont current mgmt HLD - con't home statin regimen
[2018-05-25] MEDS ORDERED: VANCOMYCIN 1,000 MG in DEXTROSE 5%-WATER - 250 ML IVPB SCH (17:15)
--- NOTE | 2018-05-25 17:28 | CON.ID ---
Consult Consult Specialty:: infectious disease Referred by:: hospitalist - History of Present Illness Chief Complaint: leaking heel wound left leg History of Present Illness: no fevers has been living at home with her brother received vancomycin and zosyn last night now the legs are bright red and she has erythema on her chest- not itchy looks well is alert no other complaints - History Source History Provided By: Patient, Family Member Limitations to Obtaining History: Clinical Condition - Past Medical History Cardio/Vascular: Yes: CHF, HTN Pulmonary: Yes: COPD, Sleep Apnea Renal/: Yes: Renal Calculi (s/p lithotripsy) Musculoskeletal: Yes: Chronic low back pain Endocrine: Yes: Diabetes Mellitus, Hypothyroidism, Other (morbid obesity) Additional Medical History: MRSA/Pseudomonas in her left foot ulcer that has healed - Past Surgical History Past Surgical History: Yes: Joint Replacement (left knee (partial replacement)) - Alcohol/Substance Use Hx Alcohol Use: No History of Substance Use: reports: None - Smoking History Smoking history: Former smoker Have you smoked in the past 12 months: No Aproximately how many cigarettes per day: 1 If you are a former smoker, when did you quit?: 1981 - Social History Usual Living Arrangement: Other () ADL: Family Assistance 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 History of Recent Travel: No Home Medications - Allergies Allergies/Adverse Reactions: Allergies Allergy/AdvReac Type Severity Reaction Status Date / Time codeine [Codeine] Allergy Verified 05/24/18 14:54 shellfish derived Allergy Verified 05/24/18 14:54 tramadol AdvReac Mild Verified 05/24/18 14:54 - Home Medications Home Medications: Ambulatory Orders Garlic 1,200 mg PO DAILY 12/11/16 Levothyroxine [Synthroid -] 75 mcg PO DAILY 12/11/16 [place]-3 Fatty Acids/Fish Oil [Fish Oil 1,000 mg Softgel] 1 each PO DAILY Simvastatin 40 mg PO DAILY 12/11/16 Potassium Chloride [K-Dur -] 10 meq PO DAILY tab.ec 12/17/16 Aspirin [ASA -] 81 mg PO DAILY #1 tab.chew 03/05/17 Docusate Sodium [Colace -] 100 mg PO Q8H PRN #0 cap 03/05/17 Furosemide [Lasix -] 40 mg PO DAILY tablet 03/05/17 Multivitamins [Multivit ([facility] Formul[facility])] 1 tab PO DAILY tab 03/05/17 metFORMIN HCL [Glucophage -] 500 mg PO BID 05/25/18 Family Disease History - Family Disease History Family Disease History: Heart Disease: Mother ( 90's: CAD/Dementia), CA: Father ( in late 80's: h/o colon ca), Other: Brother (Alive: HTN/DM II) Review of Systems - Review of Systems Constitutional: reports: No Symptoms. denies: Chills, Fever Eyes: reports: No Symptoms Musculoskeletal: reports: Other (blood from her heel woun) Physical Exam Vital Signs: Vital Signs Temperature 98.1 F 05/25/18 13:30 Pulse Rate 90 05/25/18 13:30 Respiratory Rate 18 05/25/18 13:30 Blood Pressure 111/47 L 05/25/18 13:30 O2 Sat by Pulse Oximetry (%) 95 05/25/18 13:30 Constitutional: Yes: Well Nourished, No Distress, Obese Eyes: Yes: Conjunctiva Clear HENT: Yes: Atraumatic, Normocephalic Neck: Yes: Supple, Trachea Midline Cardiovascular: Yes: Regular Rate and Rhythm Respiratory: Yes: Regular, CTA Bilaterally Gastrointestinal: Yes: Normal Bowel Sounds, Soft ...Rectal Exam: Yes: Deferred Musculoskeletal: Yes: WNL Edema: Yes Integumentary: Yes: Other (diffuse bright erythema of both legs, erythema of the chest wall) Psychiatric: Yes: Alert, Oriented Labs: CBC, BMP 05/25/18 06:00 05/25/18 06:00 Microbiology 05/24/18 15:50 Blood - Peripheral Venous Blood Culture - Preliminary NO GROWTH OBTAINED AFTER 24 HOURS, INCUBATION TO CONTINUE FOR 4 DAYS. 05/24/18 16:00 Blood - Peripheral Venous Blood Culture - Preliminary NO GROWTH OBTAINED AFTER 24 HOURS, INCUBATION TO CONTINUE FOR 4 DAYS. Imaging - Results Chest X-ray: Report Reviewed X-ray: Report Reviewed Problem List - Problems (1) Cellulitis Code(s): L03.90 - CELLULITIS, UNSPECIFIED Qualifiers: Site of cellulitis: extremity Site of cellulitis of extremity: lower extremity Laterality: right Qualified Code(s): L03.115 - Cellulitis of right lower limb (2) DM Diabetes mellitus Code(s): E11.9 - TYPE 2 DIABETES MELLITUS WITHOUT COMPLICATIONS (3) Morbid obesity Code(s): E66.01 - MORBID (SEVERE) OBESITY DUE TO EXCESS CALORIES (4) Drug rash Code(s): L27.0 - GEN SKIN ERUPTION DUE TO DRUGS AND MEDS TAKEN INTERNALLY Assessment/Plan cellulitis ?suspected drug rash blood cultures are negative she does not have fever will switch to clindamycin and azactam and f/u benadryl prn prior history of mrsa, continue isolation
[2018-05-25] MEDS ORDERED: LINEZOLID 600 MG PREMIX BAG 600 MG/300 ML BAG IVPB SCH (18:00)
[2018-05-25] MEDS: AZTREONAM 2 GM in DEXTROSE 5%-WATER 100 ML IVPB SCH (18:55)
[2018-05-25] MEDS: CLINDAMYCIN 600MG PREMIX IVPB 600 MG/50 ML BAG IVPB SCH (19:30)
[2018-05-25] MEDS ORDERED: CLINDAMYCIN 600MG PREMIX IVPB 600 MG/50 ML BAG IVPB ONE (19:41)
[2018-05-25] MEDS ORDERED: ATORVASTATIN CA 10 MG TABLET (FP) ONE (21:41)
[2018-05-25] MEDS: ATORVASTATIN CA 20 MG TABLET (FP) PO SCH (21:50)
[2018-05-26 01:24] VITALS: BMI 45.7
[2018-05-26] MEDS: CLINDAMYCIN 600MG PREMIX IVPB 600 MG/50 ML BAG IVPB SCH ×3 (02:00→17:12)
[2018-05-26] MEDS: AZTREONAM 2 GM in DEXTROSE 5%-WATER 100 ML IVPB SCH ×3 (02:39→17:12)
[2018-05-26] MEDS: LEVOTHYROXINE NA 75 MCG TABLET (FP) PO SCH (06:00)
[2018-05-26] MEDS: metFORMIN HCL 500 MG TABLET (FP) PO SCH ×2 (06:00→17:11)
[2018-05-26] MEDS: INSULIN SLIDING SCALE (NOVOLOG) 1 VIAL SQ SCH ×4 (06:01→21:48)
[2018-05-26 06:55] LABS: BASO % 0.2 % (0-2.0); EOS % 4.3 % (0-4.5); HEMATOCRIT 34.7 % (32.4-45.2); HEMOGLOBIN 10.7 GM/dL (10.7-15.3); LYMPH % 15.9 % (8-40); MCH 27.6 pg (25.7-33.7); MCHC 30.8 g/dl (32.0-36.0); MEAN CELL VOLUME 89.8 fl (80-96); MEAN PLT VOLUME 9.7 fl (7.5-11.1); MONO % 3.7 % (3.8-10.2); NEUT % 75.9 % (42.8-82.8); PLATELET COUNT 235 K/MM3 (134-434); RBC 3.86 M/mm3 (3.60-5.2); RDW 15.9 % (11.6-15.6)
[2018-05-26 07:17] LABS: ANION GAP 10 MMOL/L (8-16); BLOOD UREA NITROGEN 13 mg/dL (7-18); CALCIUM 7.8 mg/dL (8.5-10.1); CHLORIDE 100 mmol/L (98-107); CO2 30 mmol/L (21-32); CREATININE 0.8 mg/dL (0.55-1.3); GLUCOSE,RANDOM 179 mg/dL (74-106); MAGNESIUM 2.2 mg/dL (1.8-2.4); PHOSPHOROUS 4.3 mg/dL (2.5-4.9); POTASSIUM 3.5 mmol/L (3.5-5.1); SODIUM 140 mmol/L (136-145)
[2018-05-26] MEDS ORDERED: POTASSIUM CHLORIDE TABS 20 MEQ TABLET.ER (FP) PO ONE (09:14)
--- NOTE | 2018-05-26 09:47 | PN ---
Progress Note, Physician Chief Complaint: cellulitis History of Present Illness: breathing feels a little uncomfortable today. desats to 80s% when on RA. stable on NC leg swelling improved. no cp, palpit - Current Medication List Current Medications: Active Medications Acetaminophen (Tylenol -) 650 mg PO Q4H PRN PRN Reason: PAIN 1-3 Aspirin (Asa -) 81 mg PO DAILY [facility] Last Admin: 05/25/18 08:59 Dose: 81 mg Atorvastatin Calcium (Lipitor -) 20 mg PO HS [facility] Last Admin: 05/25/18 21:50 Dose: 20 mg Benzocaine/Menthol (Cepacol Lozenge -) 1 each MM PRN PRN PRN Reason: SORE THROAT Docusate Sodium (Colace -) 100 mg PO Q8H PRN PRN Reason: CONSTIPATION Enoxaparin Sodium (Lovenox -) 40 mg SQ DAILY [facility] Last Admin: 05/25/18 08:59 Dose: 40 mg Furosemide (Lasix -) 40 mg PO DAILY [facility] Last Admin: 05/25/18 08:59 Dose: 40 mg Aztreonam 2 gm/ Dextrose 100 mls @ 100 mls/hr IVPB Q8H-IV [facility]; Protocol Last Admin: 05/26/18 02:39 Dose: 100 mls/hr Clindamycin Phosphate (Cleocin 600 Mg Premix Ivpb -) 600 mg in 50 mls @ 100 mls /hr IVPB Q8H-IV [facility]; Protocol Last Admin: 05/26/18 02:00 Dose: 100 mls/hr Insulin Aspart (Novolog Vial Sliding Scale -) 1 vial SQ ACHS [facility]; Protocol Last Admin: 05/26/18 06:01 Dose: 2 units Lactobacillus Acidophilus (Bacid -) 1 tab PO DAILY [facility] Last Admin: 05/25/18 10:17 Dose: 1 tab Levothyroxine Sodium (Synthroid -) 75 mcg PO 0700 [facility] Last Admin: 05/26/18 06:00 Dose: 75 mcg Metformin HCl (Glucophage -) 500 mg PO BID@0700,1630 [facility] Last Admin: 05/26/18 06:00 Dose: 500 mg Multivitamins/Minerals/Vitamin C (Tab-A-Vit -) 1 tab PO DAILY [facility] Last Admin: 05/25/18 10:17 Dose: 1 tab Ondansetron HCl (Zofran Injection) 4 mg IVPUSH Q6H PRN PRN Reason: NAUSEA Potassium Chloride (K-Dur -) 20 meq PO DAILY [facility] Last Admin: 05/25/18 08:59 Dose: 20 meq - Objective Vital Signs: Vital Signs Temperature 98.4 F 05/26/18 02:16 Pulse Rate 96 H 05/26/18 02:16 Respiratory Rate 20 05/26/18 02:16 Blood Pressure 115/69 05/26/18 02:16 O2 Sat by Pulse Oximetry (%) 98 05/26/18 01:26 Constitutional: Yes: No Distress, Calm, Obese Cardiovascular: Yes: Regular Rate and Rhythm, S1, S2. No: JVD (tds habitus), Gallop, Murmur Respiratory: Yes: Regular, CTA Bilaterally, Rales (bases (? atx)). No: Rhonchi , Wheezes Extremities: No: Cold Edema: No (+ erythema shins) Neurological: Yes: Alert, Oriented Psychiatric: No: Agitated Labs: CBC, BMP 05/26/18 05:30 05/26/18 05:30 INR, PTT INR 0.98 (0.83-1.09) 05/24/18 15:57 Assessment/Plan ecg: sr, nl intervals, no ischemic changes CXR: no sig chf Echo 10/2016: tds; low nl lvef, nl rv, mild lae, mod tr, rvsp 40-50 Echo 02/2016: suboptimal. grossly nl lv size. Mild-mod LV dysfunction. RV not well seen. Mild ARLYN. Mod TR. RVSP 40-50. Small effusion < 1 cm. stress MPI 06/08: no ischemic EKG changes. nl perfusion. EF 45%, global. Assessment/Plan 73 yo female here with non healing foot wound, redness of le's. le cellulitis: -abx per ID chronic diast chf, pulm HTN (WHO 2?): - preserved LVEF (11/07 echo) with no signif valve dysfunction and only mild-mod pulm HTN then - appears euvolemic. habitus tds for volume assessment. pt hypoxic on RA--? ATX/ suboptimal depth of inspiration. - rpt CXR, if no pulm edema present, rec pulm eval - f/u echo for pulm HTN HTN - bp overall controlled, stable - cont current mgmt HLD - con't home statin regimen
[2018-05-26] MEDS: ASPIRIN 81 MG CHEWABLE TABLETS PO SCH (10:23)
[2018-05-26] MEDS: LACTOBACILLUS ACIDOPHILUS 1 TABLET PO SCH (10:23)
[2018-05-26] MEDS: FUROSEMIDE 40 MG TABLET (FP) PO SCH (10:24)
[2018-05-26] MEDS: POTASSIUM CHLORIDE TABS 20 MEQ TABLET.ER (FP) PO SCH (10:24)
[2018-05-26] MEDS: ENOXAPARIN NA (PORCINE) 40 MG/0.4 ML DISP.SYRIN SQ SCH (10:25)
[2018-05-26] MEDS: MULTIVITAMINS (DAILY MVI) TABLET (FP) PO SCH (10:25)
--- NOTE | 2018-05-26 10:31 | PN ---
Progress Note, Physician Chief Complaint: Pt lying in bed in no acute distress. Pt desatted to 80s on RA this am, placed on O2 via NC, pt reports feeling at her baseline, denies any chest pain, sob, n/ v/d. Erythematous rash on chest improved, persistent on b/l les. - Current Medication List Current Medications: Active Medications Acetaminophen (Tylenol -) 650 mg PO Q4H PRN PRN Reason: PAIN 1-3 Aspirin (Asa -) 81 mg PO DAILY [facility] Last Admin: 05/26/18 10:23 Dose: 81 mg Atorvastatin Calcium (Lipitor -) 20 mg PO HS [facility] Last Admin: 05/25/18 21:50 Dose: 20 mg Benzocaine/Menthol (Cepacol Lozenge -) 1 each MM PRN PRN PRN Reason: SORE THROAT Docusate Sodium (Colace -) 100 mg PO Q8H PRN PRN Reason: CONSTIPATION Enoxaparin Sodium (Lovenox -) 40 mg SQ DAILY [facility] Last Admin: 05/26/18 10:25 Dose: 40 mg Furosemide (Lasix -) 40 mg PO DAILY [facility] Last Admin: 05/26/18 10:24 Dose: 40 mg Aztreonam 2 gm/ Dextrose 100 mls @ 100 mls/hr IVPB Q8H-IV [facility]; Protocol Last Admin: 05/26/18 10:23 Dose: 100 mls/hr Clindamycin Phosphate (Cleocin 600 Mg Premix Ivpb -) 600 mg in 50 mls @ 100 mls /hr IVPB Q8H-IV [facility]; Protocol Last Admin: 05/26/18 10:24 Dose: 100 mls/hr Insulin Aspart (Novolog Vial Sliding Scale -) 1 vial SQ ACHS [facility]; Protocol Last Admin: 05/26/18 06:01 Dose: 2 units Lactobacillus Acidophilus (Bacid -) 1 tab PO DAILY [facility] Last Admin: 05/26/18 10:23 Dose: 1 tab Levothyroxine Sodium (Synthroid -) 75 mcg PO 0700 [facility] Last Admin: 05/26/18 06:00 Dose: 75 mcg Metformin HCl (Glucophage -) 500 mg PO BID@0700,1630 [facility] Last Admin: 05/26/18 06:00 Dose: 500 mg Multivitamins/Minerals/Vitamin C (Tab-A-Vit -) 1 tab PO DAILY [facility] Last Admin: 05/26/18 10:25 Dose: 1 tab Ondansetron HCl (Zofran Injection) 4 mg IVPUSH Q6H PRN PRN Reason: NAUSEA Potassium Chloride (K-Dur -) 20 meq PO DAILY [facility] Last Admin: 05/26/18 10:24 Dose: 20 meq - Objective Vital Signs: Vital Signs Temperature 98.4 F 05/26/18 10:00 Pulse Rate 92 H 05/26/18 10:00 Respiratory Rate 20 05/26/18 10:00 Blood Pressure 110/58 L 05/26/18 10:00 O2 Sat by Pulse Oximetry (%) 98 05/26/18 01:26 Constitutional: Yes: Well Nourished Cardiovascular: Yes: Regular Rate and Rhythm Respiratory: Yes: Regular, CTA Bilaterally, On Nasal O2, Rhonchi (scattered). No: SOB, Tachypnea, Wheezes Gastrointestinal: Yes: WNL, Normal Bowel Sounds, Soft, Abdomen, Obese. No: Distention, Tenderness Genitourinary: Yes: WNL Extremities: Yes: Erythema Edema: Yes Edema: LLE: 1+, RLE: 1+ Integumentary: Yes: Rash (erythematous macular rash on b/l les) Wound/Incision: Yes: Open to air, Draining (Right foot ulcer) Neurological: Yes: WNL, Alert, Oriented Psychiatric: Yes: WNL, Alert, Oriented Labs: CBC, BMP 05/26/18 05:30 05/26/18 05:30 INR, PTT INR 0.98 (0.83-1.09) 05/24/18 15:57 Assessment/Plan (1) Diabetic foot ulcer Assessment/Plan: draining purulent drainage leukocytosis improved aztreonam, clindamycin day 1 wound culture pending esr/crp ordered MRI ordered podiatry consult pending ID following Code(s): E11.621 - TYPE 2 DIABETES MELLITUS WITH FOOT ULCER; L97.509 - NON- PRESSURE CHRONIC ULCER OTH PRT UNSP FOOT W UNSP SEVERITY Qualifiers: Diabetic foot ulcer location: heel Diabetes mellitus type: type 2 Laterality: right Non-pressure ulcer stage: unspecified non-pressure ulcer stage Qualified Code(s): E11.621 - Type 2 diabetes mellitus with foot ulcer; L97.419 - Non-pressure chronic ulcer of right heel and midfoot with unspecified severity (2) Cellulitis of right leg Assessment/Plan: as above Code(s): L03.115 - CELLULITIS OF RIGHT LOWER LIMB (3) Drug rash Assessment/Plan: improved erythematous macular rash on anterior chest, b/l lower extremities vanco/zosyn stopped benadryl prn Code(s): L27.0 - GEN SKIN ERUPTION DUE TO DRUGS AND MEDS TAKEN INTERNALLY (4) Oxygen desaturation Assessment/Plan: desatted to 80s on RA this am pt denies sob/difficulty breathing mild scatted rhonchi anterior thorax on auscultation duoneb ordered repeat chest xray echo pending monitor Code(s): R09.02 - HYPOXEMIA (5) Benign hypertension Assessment/Plan: stable continue lasix Code(s): I10 - ESSENTIAL (PRIMARY) HYPERTENSION (6) Diabetes Assessment/Plan: Hgb A1c 7.8 continue BGM, Metformin, Insulin sliding scale diabetic diet Code(s): E11.9 - TYPE 2 DIABETES MELLITUS WITHOUT COMPLICATIONS Qualifiers: Diabetes mellitus type: type 2 Diabetes mellitus half-way insulin use: without terminal system operator use Diabetes mellitus complication status: with skin complications Diabetes mellitus complication detail: with foot ulcer Qualified Code(s): E11.621 - Type 2 diabetes mellitus with foot ulcer; L97.509 - Non-pressure chronic ulcer of other part of unspecified foot with unspecified severity (7) HLD (hyperlipidemia) Assessment/Plan: continue Lipitor Code(s): E78.5 - HYPERLIPIDEMIA, UNSPECIFIED (8) Hypothyroid Assessment/Plan: continue synthroid Code(s): E03.9 - HYPOTHYROIDISM, UNSPECIFIED (9) Morbid obesity Assessment/Plan: continue life style modifications Code(s): E66.01 - MORBID (SEVERE) OBESITY DUE TO EXCESS CALORIES (10) CHF (congestive heart failure) Assessment/Plan: stable echo pending cardiology following Code(s): I50.9 - HEART FAILURE, UNSPECIFIED Qualifiers: Heart failure type: diastolic Heart failure chronicity: chronic Qualified Code(s): I50.32 - Chronic diastolic (congestive) heart failure
[2018-05-26] MEDS ORDERED: ALBUTEROL SO4 2.5/IPRATROPIUM 0.5 INH SOL 3 ML VIAL.NEB. NEB ONE (10:48)
--- NOTE | 2018-05-26 11:24 | EKG ---
Test Reason : Blood Pressure : / mmHG Vent. Rate : 095 BPM Atrial Rate : 095 BPM P-R Int : 174 ms QRS Dur : 086 ms QT Int : 370 ms P-R-T Axes : 066 -36 044 degrees QTc Int : 464 ms NORMAL SINUS RHYTHM LEFT AXIS DEVIATION ABNORMAL ECG WHEN COMPARED WITH ECG OF 24-MAY-2018 16:28, NO SIGNIFICANT CHANGE WAS FOUND Confirmed by KARIN CARLISLE MD ([id number]) on 05/26/2018 11:23:52 AM Referred By: Confirmed By:KARIN CARLISLE MD
--- NOTE | 2018-05-26 12:09 | PN ---
Progress Note (short form) - Note Progress Note: feels better today less itchy no fevers Vital Signs Period Temp Pulse Resp BP Sys/Donohue Pulse Ox Last 24 Hr 97.8 F-98.4 F 88-96 17-20 110-141/47-82 93-98 erythema on chest has resolved cor-rrr lungs clear abd soft,nt ext +erythema - bilateral bright erythema ankle to below knee , feet are not red or swollen right heel ulcer is dry CBC, BMP 05/26/18 05:30 05/26/18 05:30 Microbiology 05/24/18 15:50 Blood - Peripheral Venous Blood Culture - Preliminary NO GROWTH OBTAINED AFTER 24 HOURS, INCUBATION TO CONTINUE FOR 4 DAYS. 05/24/18 16:00 Blood - Peripheral Venous Blood Culture - Preliminary NO GROWTH OBTAINED AFTER 24 HOURS, INCUBATION TO CONTINUE FOR 4 DAYS. Current Medications Acetaminophen (Tylenol -) 650 mg PO Q4H PRN PRN Reason: PAIN 1-3 Aspirin (Asa -) 81 mg PO DAILY [facility] Last Admin: 05/26/18 10:23 Dose: 81 mg Atorvastatin Calcium (Lipitor -) 20 mg PO HS [facility] Last Admin: 05/25/18 21:50 Dose: 20 mg Benzocaine/Menthol (Cepacol Lozenge -) 1 each MM PRN PRN PRN Reason: SORE THROAT Docusate Sodium (Colace -) 100 mg PO Q8H PRN PRN Reason: CONSTIPATION Enoxaparin Sodium (Lovenox -) 40 mg SQ DAILY [facility] Last Admin: 05/26/18 10:25 Dose: 40 mg Furosemide (Lasix -) 40 mg PO DAILY [facility] Last Admin: 05/26/18 10:24 Dose: 40 mg Aztreonam 2 gm/ Dextrose 100 mls @ 100 mls/hr IVPB Q8H-IV [facility]; Protocol Last Admin: 05/26/18 10:23 Dose: 100 mls/hr Clindamycin Phosphate (Cleocin 600 Mg Premix Ivpb -) 600 mg in 50 mls @ 100 mls /hr IVPB Q8H-IV [facility]; Protocol Last Admin: 05/26/18 10:24 Dose: 100 mls/hr Insulin Aspart (Novolog Vial Sliding Scale -) 1 vial SQ ACHS [facility]; Protocol Last Admin: 05/26/18 06:01 Dose: 2 units Lactobacillus Acidophilus (Bacid -) 1 tab PO DAILY [facility] Last Admin: 05/26/18 10:23 Dose: 1 tab Levothyroxine Sodium (Synthroid -) 75 mcg PO 0700 [facility] Last Admin: 05/26/18 06:00 Dose: 75 mcg Metformin HCl (Glucophage -) 500 mg PO BID@0700,1630 [facility] Last Admin: 05/26/18 06:00 Dose: 500 mg Multivitamins/Minerals/Vitamin C (Tab-A-Vit -) 1 tab PO DAILY [facility] Last Admin: 05/26/18 10:25 Dose: 1 tab Ondansetron HCl (Zofran Injection) 4 mg IVPUSH Q6H PRN PRN Reason: NAUSEA Potassium Chloride (K-Dur -) 20 meq PO DAILY [facility] Last Admin: 05/26/18 10:24 Dose: 20 meq a/p cellulitis drug rash history MRSA- on contact isolation continue clindamycin and azactam d/w Dr Griggs Problem List - Problems (1) Cellulitis Code(s): L03.90 - CELLULITIS, UNSPECIFIED Qualifiers: Site of cellulitis: extremity Site of cellulitis of extremity: lower extremity Laterality: right Qualified Code(s): L03.115 - Cellulitis of right lower limb (2) DM Diabetes mellitus Code(s): E11.9 - TYPE 2 DIABETES MELLITUS WITHOUT COMPLICATIONS (3) Morbid obesity Code(s): E66.01 - MORBID (SEVERE) OBESITY DUE TO EXCESS CALORIES (4) Drug rash Code(s): L27.0 - GEN SKIN ERUPTION DUE TO DRUGS AND MEDS TAKEN INTERNALLY
--- NOTE | 2018-05-26 16:17 | ECHO ---
Name: LUIS GARCIA Exam:Adult Echocardiogram Study Date: 05/26/2018 01:44 PM Age: 73 yrs Reason For Study: CHF Height: 63 in Weight: 250 lb BSA: 2.1 m2 MMode/2D Measurements & Calculations IVSd: 1.1 cm Ao root diam: 2.5 cm LVIDd: 5.1 cm LA dimension: 3.7 cm LVIDs: 3.4 cm LVPWd: 1.1 cm EDV(Teich): 124.4 ml TAPSE: 1.9 cm ESV(Teich): 47.3 ml Doppler Measurements & Calculations MV E max carola: 100.7 cm/sec TR max carola: 350.7 cm/sec MV A max carola: 86.9 cm/sec TR max P.2 mmHg MV E/A: 1.2 MV dec time: 0.22 sec Procedure The study was technically difficult with many images being suboptimal in quality. Left Ventricle The left ventricle is grossly normal size. Left ventricular systolic function is grossly normal. Ejec tion Fraction = 55-60%. Left Ventricular Filling pattern is normal for age. Regional wall motion abnormali ties cannot be excluded due to limited visualization. Right Ventricle The right ventricle is not well visualized. Atria The left atrium is not well visualized. Right atrium not well visualized. Mitral Valve The mitral valve is not well visualized. There is trace mitral regurgitation. Tricuspid Valve The tricuspid valve is not well visualized. There is moderate tricuspid regurgitation. Right ventricu lar systolic pressure is elevated at 68 mmhg. Aortic Valve The aortic valve is not well visualized. Pulmonic Valve The pulmonic valve is not well visualized. Great Vessels The aortic root is normal size. Pericardium/Pleura There is no pericardial effusion. Interpretation Summary There is no comparison study available. There is moderate tricuspid regurgitation. Ejection Fraction = 55-60%. The left ventricle is grossly normal size. Left ventricular systolic function is grossly normal. There is trace mitral regurgitation. Ruiz Garcia MD 05/26/2018 04:17 PM
[2018-05-26] MEDS: ATORVASTATIN CA 20 MG TABLET (FP) PO SCH (21:49)
[2018-05-27] MEDS: AZTREONAM 2 GM in DEXTROSE 5%-WATER 100 ML IVPB SCH ×2 (02:08→10:21)
[2018-05-27] MEDS: CLINDAMYCIN 600MG PREMIX IVPB 600 MG/50 ML BAG IVPB SCH ×2 (02:11→12:17)
[2018-05-27] MEDS: INSULIN SLIDING SCALE (NOVOLOG) 1 VIAL SQ SCH ×3 (06:11→22:14)
[2018-05-27] MEDS: metFORMIN HCL 500 MG TABLET (FP) PO SCH (06:13)
[2018-05-27] MEDS: LEVOTHYROXINE NA 75 MCG TABLET (FP) PO SCH (06:13)
[2018-05-27 07:48] LABS: BASO % 0.2 % (0-2.0); EOS % 4.1 % (0-4.5); HEMATOCRIT 34.3 % (32.4-45.2); HEMOGLOBIN 10.3 GM/dL (10.7-15.3); LYMPH % 12.1 % (8-40); MCH 27.1 pg (25.7-33.7); MEAN CELL VOLUME 90.1 fl (80-96); MEAN PLT VOLUME 9.5 fl (7.5-11.1); MONO % 3.6 % (3.8-10.2); PLATELET COUNT 242 K/MM3 (134-434); RBC 3.81 M/mm3 (3.60-5.2); RDW 16.2 % (11.6-15.6); WHITE BLOOD COUNT 11.2 K/mm3 (4.0-10.0)
[2018-05-27 08:26] LABS: ANION GAP 11 MMOL/L (8-16); BLOOD UREA NITROGEN 11 mg/dL (7-18); CALCIUM 7.8 mg/dL (8.5-10.1); CHLORIDE 99 mmol/L (98-107); CO2 30 mmol/L (21-32); CREATININE 0.9 mg/dL (0.55-1.3); GLUCOSE,RANDOM 163 mg/dL (74-106); POTASSIUM 3.9 mmol/L (3.5-5.1); SODIUM 140 mmol/L (136-145)
[2018-05-27] MEDS ORDERED: PT OWN MED DRAWER 7, Y5N ONE (09:37)
[2018-05-27 09:52] LABS: ERYTHROCYTE SEDIMENTATION RATE 85 mm/hr (0-30)
--- NOTE | 2018-05-27 09:59 | PN ---
Progress Note, Physician Chief Complaint: Pt lying in bed in no acute distress. c/o sore throat, reports feeling worse today. still requiring O2, denies any sob. Denies any chest pain, n/v/d - Current Medication List Current Medications: Active Medications Acetaminophen (Tylenol -) 650 mg PO Q4H PRN PRN Reason: PAIN 1-3 Aspirin (Asa -) 81 mg PO DAILY [facility] Last Admin: 05/26/18 10:23 Dose: 81 mg Atorvastatin Calcium (Lipitor -) 20 mg PO HS [facility] Last Admin: 05/26/18 21:49 Dose: 20 mg Benzocaine/Menthol (Cepacol Lozenge -) 1 each MM PRN PRN PRN Reason: SORE THROAT Docusate Sodium (Colace -) 100 mg PO Q8H PRN PRN Reason: CONSTIPATION Enoxaparin Sodium (Lovenox -) 40 mg SQ DAILY [facility] Last Admin: 05/26/18 10:25 Dose: 40 mg Furosemide (Lasix -) 40 mg PO DAILY [facility] Last Admin: 05/26/18 10:24 Dose: 40 mg Aztreonam 2 gm/ Dextrose 100 mls @ 100 mls/hr IVPB Q8H-IV [facility]; Protocol Last Admin: 05/27/18 02:08 Dose: 100 mls/hr Clindamycin Phosphate (Cleocin 600 Mg Premix Ivpb -) 600 mg in 50 mls @ 100 mls /hr IVPB Q8H-IV [facility]; Protocol Last Admin: 05/27/18 02:11 Dose: 100 mls/hr Insulin Aspart (Novolog Vial Sliding Scale -) 1 vial SQ ACHS [facility]; Protocol Last Admin: 05/27/18 06:11 Dose: 2 units Lactobacillus Acidophilus (Bacid -) 1 tab PO DAILY [facility] Last Admin: 05/26/18 10:23 Dose: 1 tab Levothyroxine Sodium (Synthroid -) 75 mcg PO 0700 [facility] Last Admin: 05/27/18 06:13 Dose: 75 mcg Metformin HCl (Glucophage -) 500 mg PO BID@0700,1630 [facility] Last Admin: 05/27/18 06:13 Dose: 500 mg Multivitamins/Minerals/Vitamin C (Tab-A-Vit -) 1 tab PO DAILY [facility] Last Admin: 05/26/18 10:25 Dose: 1 tab Ondansetron HCl (Zofran Injection) 4 mg IVPUSH Q6H PRN PRN Reason: NAUSEA Potassium Chloride (K-Dur -) 20 meq PO DAILY [facility] Last Admin: 05/26/18 10:24 Dose: 20 meq - Objective Vital Signs: Vital Signs Temperature 97.7 F 05/27/18 06:00 Pulse Rate 100 H 05/27/18 06:00 Respiratory Rate 18 05/27/18 06:00 Blood Pressure 132/87 05/27/18 06:00 O2 Sat by Pulse Oximetry (%) 93 L 05/27/18 08:44 Constitutional: Yes: Well Nourished, No Distress, Calm, Obese Cardiovascular: Yes: WNL, Regular Rate and Rhythm Respiratory: Yes: WNL, Regular, CTA Bilaterally, On Nasal O2. No: Accessory Muscle Use, Rales, Rhonchi, SOB, Tachypnea, Wheezes Gastrointestinal: Yes: WNL, Normal Bowel Sounds, Soft, Abdomen, Obese. No: Ascites, Distention, Tenderness Genitourinary: Yes: WNL Extremities: Yes: Erythema Edema: Yes Edema: LLE: Trace, RLE: Trace Integumentary: Yes: Rash (b/l les, anterior thorax- improving) Wound/Incision: Yes: Draining (right foot) Neurological: Yes: WNL, Alert, Oriented Psychiatric: Yes: WNL, Alert, Oriented Labs: CBC, BMP 05/27/18 05:30 05/27/18 05:30 INR, PTT INR 0.98 (0.83-1.09) 05/24/18 15:57 - ....Imaging Chest X-ray: Report Reviewed Ultrasound: Pending MRI: Pending Problem List - Problems (1) Hypercapnic acidosis Code(s): E87.2 - ACIDOSIS Assessment/Plan (1) Diabetic foot ulcer Assessment/Plan: draining purulent drainage aztreonam, clindamycin day 2 wound culture + ecoli esr/crp elevated- trend MRI pending podiatry consult pending ID following Code(s): E11.621 - TYPE 2 DIABETES MELLITUS WITH FOOT ULCER; L97.509 - NON- PRESSURE CHRONIC ULCER OTH PRT UNSP FOOT W UNSP SEVERITY Qualifiers: Diabetic foot ulcer location: heel Diabetes mellitus type: type 2 Laterality: right Non-pressure ulcer stage: unspecified non-pressure ulcer stage Qualified Code(s): E11.621 - Type 2 diabetes mellitus with foot ulcer; L97.419 - Non-pressure chronic ulcer of right heel and midfoot with unspecified severity (2) Cellulitis of right leg Assessment/Plan: as above Code(s): L03.115 - CELLULITIS OF RIGHT LOWER LIMB (3) Drug rash Assessment/Plan: improved Code(s): L27.0 - GEN SKIN ERUPTION DUE TO DRUGS AND MEDS TAKEN INTERNALLY (4) Hypercapnic acidosis Assessment/Plan: abg- mild resp acidosis w/ compensatory alkalosis still requiring O2 mildly tachycardic chest xray without acute findings due to sedentary life style and above s&s, need to r/o PE ddimer positive b/l duplex/cta ordered pulm consult appreciated Code(s): E87.2 - ACIDOSIS (5) Benign hypertension Assessment/Plan: stable continue lasix Code(s): I10 - ESSENTIAL (PRIMARY) HYPERTENSION (6) Diabetes Assessment/Plan: Hgb A1c 7.8 continue BGM, Metformin, Insulin sliding scale diabetic diet Code(s): E11.9 - TYPE 2 DIABETES MELLITUS WITHOUT COMPLICATIONS Qualifiers: Diabetes mellitus type: type 2 Diabetes mellitus long term care administrator insulin use: without retirement use Diabetes mellitus complication status: with skin complications Diabetes mellitus complication detail: with foot ulcer Qualified Code(s): E11.621 - Type 2 diabetes mellitus with foot ulcer; L97.509 - Non-pressure chronic ulcer of other part of unspecified foot with unspecified severity (7) HLD (hyperlipidemia) Assessment/Plan: continue Lipitor Code(s): E78.5 - HYPERLIPIDEMIA, UNSPECIFIED (8) Hypothyroid Assessment/Plan: continue synthroid Code(s): E03.9 - HYPOTHYROIDISM, UNSPECIFIED (9) Morbid obesity Assessment/Plan: continue life style modifications Code(s): E66.01 - MORBID (SEVERE) OBESITY DUE TO EXCESS CALORIES (10) CHF (congestive heart failure) Assessment/Plan: stable echo without acute changes cardiology following Code(s): I50.9 - HEART FAILURE, UNSPECIFIED Qualifiers: Heart failure type: diastolic Heart failure chronicity: chronic Qualified Code(s): I50.32 - Chronic diastolic (congestive) heart failure (11) Hypokalemia Assessment/Plan: improved continue kcl scheduled Code(s): E87.6 - HYPOKALEMIA
--- NOTE | 2018-05-27 10:04 | PN ---
Progress Note (short form) - Note Progress Note: Progress Note, Physician Chief Complaint: cellulitis History of Present Illness: still some dypnea, cough. no chest pain, palps, dizziness, lightheadedness Current Medications Acetaminophen (Tylenol -) 650 mg PO Q4H PRN PRN Reason: PAIN 1-3 Aspirin (Asa -) 81 mg PO DAILY [facility] Last Admin: 05/26/18 10:23 Dose: 81 mg Atorvastatin Calcium (Lipitor -) 20 mg PO HS [facility] Last Admin: 05/26/18 21:49 Dose: 20 mg Benzocaine/Menthol (Cepacol Lozenge -) 1 each MM PRN PRN PRN Reason: SORE THROAT Docusate Sodium (Colace -) 100 mg PO Q8H PRN PRN Reason: CONSTIPATION Enoxaparin Sodium (Lovenox -) 40 mg SQ DAILY [facility] Last Admin: 05/26/18 10:25 Dose: 40 mg Furosemide (Lasix -) 40 mg PO DAILY [facility] Last Admin: 05/26/18 10:24 Dose: 40 mg Aztreonam 2 gm/ Dextrose 100 mls @ 100 mls/hr IVPB Q8H-IV [facility]; Protocol Last Admin: 05/27/18 02:08 Dose: 100 mls/hr Clindamycin Phosphate (Cleocin 600 Mg Premix Ivpb -) 600 mg in 50 mls @ 100 mls /hr IVPB Q8H-IV [facility]; Protocol Last Admin: 05/27/18 02:11 Dose: 100 mls/hr Insulin Aspart (Novolog Vial Sliding Scale -) 1 vial SQ ACHS [facility]; Protocol Last Admin: 05/27/18 06:11 Dose: 2 units Lactobacillus Acidophilus (Bacid -) 1 tab PO DAILY [facility] Last Admin: 05/26/18 10:23 Dose: 1 tab Levothyroxine Sodium (Synthroid -) 75 mcg PO 0700 [facility] Last Admin: 05/27/18 06:13 Dose: 75 mcg Metformin HCl (Glucophage -) 500 mg PO BID@0700,1630 [facility] Last Admin: 05/27/18 06:13 Dose: 500 mg Multivitamins/Minerals/Vitamin C (Tab-A-Vit -) 1 tab PO DAILY [facility] Last Admin: 05/26/18 10:25 Dose: 1 tab Ondansetron HCl (Zofran Injection) 4 mg IVPUSH Q6H PRN PRN Reason: NAUSEA Potassium Chloride (K-Dur -) 20 meq PO DAILY [facility] Last Admin: 05/26/18 10:24 Dose: 20 meq - Objective Vital Signs: Vital Signs Period Temp Pulse Resp BP Sys/Donohue Pulse Ox Last 24 Hr 97.5 F-98.4 F 94-100 18-20 109-135/56-87 93-98 Constitutional: Yes: No Distress, Calm, Obese Cardiovascular: Yes: Regular Rate and Rhythm, S1, S2. No: JVD (tds habitus), Gallop, Murmur Respiratory: Yes: Regular, CTA Bilaterally, Rales (bases (? atx)). No: Rhonchi , Wheezes Extremities: No: Cold Edema: No (+ erythema shins) Neurological: Yes: Alert, Oriented Psychiatric: No: Agitated Assessment/Plan ecg: sr, nl intervals, no ischemic changes CXR: no sig chf Echo 10/2016: tds; low nl lvef, nl rv, mild lae, mod tr, rvsp 40-50 Echo 02/2016: suboptimal. grossly nl lv size. Mild-mod LV dysfunction. RV not well seen. Mild ARLYN. Mod TR. RVSP 40-50. Small effusion < 1 cm. stress MPI 06/08: no ischemic EKG changes. nl perfusion. EF 45%, global. echo 05/2018 tds, mod TR, LV grossly nl size/function, RVSP 68 mmHg Assessment/Plan 73 yo female here with non healing foot wound, redness of le's. le cellulitis: -abx per ID chronic diast chf, pulm HTN (WHO 2?): - preserved LVEF (11/07 echo) with no signif valve dysfunction and only mild-mod pulm HTN then - appears euvolemic. habitus tds for volume assessment. - pt hypoxic on RA--? ATX/suboptimal depth of inspiration. - CXR no acute process, echo nl EF with pulm HTN, remains hypoxic - pulm consulted, CTA chest ordered HTN - bp overall controlled, stable - cont current mgmt HLD - con't home statin regimen
[2018-05-27 10:05] LABS: ARTERIAL BLD GAS O2 SATURATION 93.9 % (90-98.9); ARTERIAL BLOOD GAS BASE EXCESS 3.7 meq/l (-2-2); ARTERIAL BLOOD GAS PO2 72.5 mmHg (70-100); ARTERIAL BLOOD GAS pH 7.33 (7.35-7.45)
[2018-05-27 10:07] LABS: ALLENS TEST POSITIVE
[2018-05-27] MEDS: LACTOBACILLUS ACIDOPHILUS 1 TABLET PO SCH (10:21)
[2018-05-27] MEDS: ASPIRIN 81 MG CHEWABLE TABLETS PO SCH (10:21)
[2018-05-27] MEDS: POTASSIUM CHLORIDE TABS 20 MEQ TABLET.ER (FP) PO SCH (10:21)
[2018-05-27] MEDS: FUROSEMIDE 40 MG TABLET (FP) PO SCH (10:22)
[2018-05-27] MEDS: MULTIVITAMINS (DAILY MVI) TABLET (FP) PO SCH (10:22)
[2018-05-27] MEDS: ENOXAPARIN NA (PORCINE) 40 MG/0.4 ML DISP.SYRIN SQ SCH (10:22)
[2018-05-27] MEDS ORDERED: BENZOCAINE/MENTH/CETYLPYRD CL 1 EACH LOZENGE MM ONE (10:29)
--- NOTE | 2018-05-27 11:14 | PN ---
Progress Note (short form) - Note Progress Note: PULMONARY CONSULTATION DICTATED 05/27/18 IMP ACUTE ON CHRONIC HYPOXEMIC/HYPERCAPNEIC RESPIRATORY FAILURE SEVERE PULMONARY HTN ? OVERLAP SYNDROME,? CHRONIC PEs CHF COPD LIKELY OSAS HTN DM HYPOTHYROID CELLULITIS PLAN O2 ABX INHALED BRONCHODILATORS LASIX CHEST CTA SLEEP SCREEN CONSIDER V/Q SCAN TO R/O CHRONIC PE DR NGUYEN Problem List - Problems (1) Acute on chronic respiratory failure with hypoxia and hypercapnia Code(s): J96.21 - ACUTE AND CHRONIC RESPIRATORY FAILURE WITH HYPOXIA; J96.22 - ACUTE AND CHRONIC RESPIRATORY FAILURE WITH HYPERCAPNIA (2) CHF (congestive heart failure) Code(s): I50.9 - HEART FAILURE, UNSPECIFIED Qualifiers: Heart failure type: diastolic Heart failure chronicity: chronic Qualified Code(s): I50.32 - Chronic diastolic (congestive) heart failure (3) Diabetic foot ulcer Code(s): E11.621 - TYPE 2 DIABETES MELLITUS WITH FOOT ULCER; L97.509 - NON- PRESSURE CHRONIC ULCER OTH PRT UNSP FOOT W UNSP SEVERITY Qualifiers: Diabetic foot ulcer location: heel Diabetes mellitus type: type 2 Laterality: right Non-pressure ulcer stage: unspecified non-pressure ulcer stage Qualified Code(s): E11.621 - Type 2 diabetes mellitus with foot ulcer; L97.419 - Non-pressure chronic ulcer of right heel and midfoot with unspecified severity (4) Hypercapnic acidosis Code(s): E87.2 - ACIDOSIS (5) Oxygen desaturation Code(s): R09.02 - HYPOXEMIA (6) Anemia Code(s): D64.9 - ANEMIA, UNSPECIFIED Qualifiers: Anemia type: unspecified type Qualified Code(s): D64.9 - Anemia, unspecified (7) DM Diabetes mellitus Code(s): E11.9 - TYPE 2 DIABETES MELLITUS WITHOUT COMPLICATIONS (8) HLD (hyperlipidemia) Code(s): E78.5 - HYPERLIPIDEMIA, UNSPECIFIED (9) Hypoxia Code(s): R09.02 - HYPOXEMIA (10) Morbid obesity Code(s): E66.01 - MORBID (SEVERE) OBESITY DUE TO EXCESS CALORIES (11) Pulmonary HTN Code(s): I27.20 - PULMONARY HYPERTENSION, UNSPECIFIED
--- NOTE | 2018-05-27 12:34 | CONS ---
DATE OF CONSULTATION: 05/27/2018 REFERRING PHYSICIAN: ADAM Montejo HISTORY OF PRESENT ILLNESS: The patient is a 73-year-old white female with a past medical history of congestive heart failure, diastolic and systolic hypertension, likely obstructive sleep apnea, pulmonary hypertension, renal calculi, status post lithotripsy, chronic back pain, diabetes, hypothyroidism, morbid obesity, and questionable COPD, admitted to [facility] on May 24 secondary to right heel pain. She noted that she had bleeding ulcer, right heel. She noted that she had continued drainage. She also states she developed redness in both legs, right greater than left, at which time, she presented to the emergency room. On admission, she was felt to have cellulitis. She was placed on broad spectrum antibiotic. Of note, she was hypoxic and she started on O2. Patient has a history of smoking, quit years ago. There is no history of occupational exposure to chemical fumes. She states about a year and a half ago she was admitted, and at that time, she was noted to be hypoxic and placed on O2. She went to rehabilitation facility and she apparently prior to discharge did not require O2 anymore. She does complain of shortness of breath with exertion. She denies any chest pains or palpitations. She is relatively sedentary. She denies any history of DVT or PE in the past. Of note, she had echocardiogram performed which revealed evidence of severe pulmonary hypertension with a right ventricular systolic pressure of 68 mmHg. She had blood gas performed which was consistent with acute on chronic hypoxic hypercapnic respiratory failure. Patient denies any chest pain, nausea, vomiting. She denies any history of pulmonary emboli in the past. She is unsure whether or not she snores. She is unsure whether or not she has sleep apnea. She has occasional daytime tiredness. She never had a formal sleep study. PAST MEDICAL HISTORY: Again includes CHF, diastolic as well as systolic hypertension, diabetes, hypothyroidism, likely obstructive sleep apnea, questionable COPD, chronic back pain. REVIEW OF SYSTEMS: Positive for orthopnea. Positive for mild dyspnea. No chest pain. No palpitations. No nausea, no vomiting. Positive for lower extremity edema. Positive for right heel ulcer. CURRENT MEDICATIONS: Include Zofran, Tylenol, Azactam, clindamycin, Lovenox, Bacid, Glucophage, Colace, Lipitor, NovoLog, Lasix, aspirin, K-Dur, and Synthroid. PHYSICAL EXAMINATION: General: The patient is an elderly white female, awake, alert, in no acute distress. Vital signs: She is currently afebrile, blood pressure 132/87, respiratory rate is 18, O2 saturation is 93% on 3 L. HEENT: Head is normocephalic atraumatic. Neck: Supple. Heart: Regular, S1, S2. Chest: Diminished breath sounds bilaterally. Abdomen: Soft. Bowel sounds positive. Extremities: Bilateral lower extremity edema and erythema. LABORATORIES: Blood gas with pH of 7.33, pCO2 of 59, pO2 of 72, a bicarbonate of 30, saturation 93. WBC is 11.2, hemoglobin 10.3, hematocrit 34.3, platelet count of 242,000. Chemistries: BUN 11, creatinine 0.9, CRP is 75. Chest x-ray no infiltrates, no effusions. IMPRESSION: 1. Acute on chronic hypoxic hypercapnic respiratory failure. 2. Severe pulmonary hypertension. 3. Likely obstructive sleep apnea. 4. Cellulitis. 5. Acute on chronic congestive heart failure. 6. Hypothyroidism. 7. Acute on chronic hypoxemic respiratory failure, etiology to be determined, possibly secondary to underlying hypoventilation, possibly secondary to atelectasis, consistent with possible pulmonary emboli. PLAN: CTA of the chest. Duplex lower extremities. Sleep screen. PFT as outpatient. Supplemental O2. Daily weights and monitor electrolytes. LENA NGUYEN M.D. [id number]
--- NOTE | 2018-05-27 13:00 | CONSULT ---
Consult - text type - Consultation Consultation Note: Podiatry Consultation: 73 year old diabetic female well known to me from wound healing center presents with recurring R heel ulcer with drainage. Patient subsequently healed the ulcer a while ago, was discharged from [facility]. She now presents with recurrence. She states her blood sugars have been fairly controlled at home. Denies F/V/N/C /SOB/CP. AFebrile. PMHx: DM, HTN, COPD, morbid obesity Meds: noted ALL: codeine, shellfish, tramadol [place]ON: R foot: pedal pulses palpable, TG wnl, CFT brisk to all toes. There is a plantar heel diabetic ulcer with fibrogranular base, hyperkeratotic edges, serous drainage with undermining, no probing to bone, no purulence, no fluctuance, no streaking cellulitis, no signs of infection. Imp: 73 year old diabetic F with R heel diabetic ulcer 1. Informed consent obtained. Bedside excisional debridement of right heel diabetic ulcer to subcutaneous tissue using sterile #15 blade scalpel and forceps. Patient tolerated the procedure well without complications. 2. Santyl to R heel ulcer daily 3. Recommend MRI vs. bone scan to evaluate osteomyelitis 4. Will need f/u in wound healing center upon discharge 5. Thank you for the consultation Pallavi Rhodes DPM
[2018-05-27] MEDS ORDERED: INSULIN (NOVOLOG) ASPART 100 UNITS/ML 10ML VIAL ONE (13:06)
[2018-05-27] MEDS: ATORVASTATIN CA 20 MG TABLET (FP) PO SCH (22:14)
[2018-05-28] MEDS ORDERED: PT OWN MED DRAWER 7, Y5N ONE ×2 (02:41→07:00)
[2018-05-28] MEDS: CLINDAMYCIN 600MG PREMIX IVPB 600 MG/50 ML BAG IVPB SCH ×3 (02:44→17:39)
[2018-05-28] MEDS: AZTREONAM 2 GM in DEXTROSE 5%-WATER 100 ML IVPB SCH ×3 (03:01→17:37)
[2018-05-28] MEDS: metFORMIN HCL 500 MG TABLET (FP) PO SCH ×2 (06:15→17:27)
[2018-05-28] MEDS: INSULIN SLIDING SCALE (NOVOLOG) 1 VIAL SQ SCH ×4 (06:15→22:15)
[2018-05-28] MEDS: LEVOTHYROXINE NA 75 MCG TABLET (FP) PO SCH (06:16)
[2018-05-28 07:32] LABS: BASO % 0.1 % (0-2.0); EOS % 3.4 % (0-4.5); HEMATOCRIT 31.9 % (32.4-45.2); HEMOGLOBIN 9.9 GM/dL (10.7-15.3); LYMPH % 11.3 % (8-40); MCH 27.6 pg (25.7-33.7); MCHC 30.9 g/dl (32.0-36.0); MEAN CELL VOLUME 89.1 fl (80-96); MEAN PLT VOLUME 9.4 fl (7.5-11.1); MONO % 4.8 % (3.8-10.2); NEUT % 80.4 % (42.8-82.8); PLATELET COUNT 228 K/MM3 (134-434); RBC 3.58 M/mm3 (3.60-5.2); RDW 15.8 % (11.6-15.6); WHITE BLOOD COUNT 9.5 K/mm3 (4.0-10.0)
--- NOTE | 2018-05-28 07:40 | PN ---
Progress Note, Physician - Current Medication List Current Medications: Active Medications Acetaminophen (Tylenol -) 650 mg PO Q4H PRN PRN Reason: PAIN 1-3 Last Admin: 05/28/18 02:08 Dose: 650 mg Aspirin (Asa -) 81 mg PO DAILY [facility] Last Admin: 05/27/18 10:21 Dose: 81 mg Atorvastatin Calcium (Lipitor -) 20 mg PO HS [facility] Last Admin: 05/27/18 22:14 Dose: 20 mg Benzocaine/Menthol (Cepacol Lozenge -) 1 each MM PRN PRN PRN Reason: SORE THROAT Docusate Sodium (Colace -) 100 mg PO Q8H PRN PRN Reason: CONSTIPATION Enoxaparin Sodium (Lovenox -) 40 mg SQ DAILY [facility] Last Admin: 05/27/18 10:22 Dose: 40 mg Furosemide (Lasix -) 40 mg PO DAILY [facility] Last Admin: 05/27/18 10:22 Dose: 40 mg Aztreonam 2 gm/ Dextrose 100 mls @ 100 mls/hr IVPB Q8H-IV [facility]; Protocol Last Admin: 05/28/18 03:01 Dose: 100 mls/hr Clindamycin Phosphate (Cleocin 600 Mg Premix Ivpb -) 600 mg in 50 mls @ 100 mls /hr IVPB Q8H-IV [facility]; Protocol Last Admin: 05/28/18 02:44 Dose: 100 mls/hr Insulin Aspart (Novolog Vial Sliding Scale -) 1 vial SQ ACHS [facility]; Protocol Last Admin: 05/28/18 06:15 Dose: 2 units Lactobacillus Acidophilus (Bacid -) 1 tab PO DAILY [facility] Last Admin: 05/27/18 10:21 Dose: 1 tab Levothyroxine Sodium (Synthroid -) 75 mcg PO 0700 [facility] Last Admin: 05/28/18 06:16 Dose: 75 mcg Metformin HCl (Glucophage -) 500 mg PO BID@0700,1630 [facility] Last Admin: 05/28/18 06:15 Dose: Not Given Multivitamins/Minerals/Vitamin C (Tab-A-Vit -) 1 tab PO DAILY [facility] Last Admin: 05/27/18 10:22 Dose: 1 tab Ondansetron HCl (Zofran Injection) 4 mg IVPUSH Q6H PRN PRN Reason: NAUSEA Potassium Chloride (K-Dur -) 20 meq PO DAILY [facility] Last Admin: 05/27/18 10:21 Dose: 20 meq - Objective Vital Signs: Vital Signs Temperature 98.1 F 05/28/18 05:50 Pulse Rate 89 05/28/18 05:50 Respiratory Rate 20 05/28/18 05:50 Blood Pressure 115/59 L 05/28/18 05:50 O2 Sat by Pulse Oximetry (%) 95 05/27/18 21:00 Labs: INR, PTT INR 0.98 (0.83-1.09) 05/24/18 15:57 Problem List - Problems (1) Cellulitis of right leg Code(s): L03.115 - CELLULITIS OF RIGHT LOWER LIMB (2) CHF (congestive heart failure) Code(s): I50.9 - HEART FAILURE, UNSPECIFIED Qualifiers: Heart failure type: diastolic Heart failure chronicity: chronic Qualified Code(s): I50.32 - Chronic diastolic (congestive) heart failure (3) Pulmonary HTN Code(s): I27.20 - PULMONARY HYPERTENSION, UNSPECIFIED (4) DM Diabetes mellitus Code(s): E11.9 - TYPE 2 DIABETES MELLITUS WITHOUT COMPLICATIONS (5) COPD (chronic obstructive pulmonary disease) Code(s): J44.9 - CHRONIC OBSTRUCTIVE PULMONARY DISEASE, UNSPECIFIED
[2018-05-28 07:41] LABS: ANION GAP 6 MMOL/L (8-16); BLOOD UREA NITROGEN 9 mg/dL (7-18); CALCIUM 7.8 mg/dL (8.5-10.1); CHLORIDE 98 mmol/L (98-107); CO2 33 mmol/L (21-32); CREATININE 0.7 mg/dL (0.55-1.3); GLUCOSE,RANDOM 157 mg/dL (74-106); MAGNESIUM 1.8 mg/dL (1.8-2.4); PHOSPHOROUS 3.3 mg/dL (2.5-4.9); POTASSIUM 3.4 mmol/L (3.5-5.1); SODIUM 137 mmol/L (136-145)
[2018-05-28] MEDS: POTASSIUM CHLORIDE TABS 20 MEQ TABLET.ER (FP) PO SCH (10:04)
[2018-05-28] MEDS: ASPIRIN 81 MG CHEWABLE TABLETS PO SCH (10:04)
[2018-05-28] MEDS: MULTIVITAMINS (DAILY MVI) TABLET (FP) PO SCH (10:04)
[2018-05-28] MEDS: LACTOBACILLUS ACIDOPHILUS 1 TABLET PO SCH (10:04)
[2018-05-28] MEDS: FUROSEMIDE 40 MG TABLET (FP) PO SCH (10:04)
[2018-05-28] MEDS: ENOXAPARIN NA (PORCINE) 40 MG/0.4 ML DISP.SYRIN SQ SCH (10:06)
--- NOTE | 2018-05-28 10:07 | PN ---
Progress Note, Physician Chief Complaint: Pt lying in bed in no acute distress. sore throat improved. Pt reports having diarrhea. Denies any chest pain, sob, n/v/d - Current Medication List Current Medications: Active Medications Acetaminophen (Tylenol -) 650 mg PO Q4H PRN PRN Reason: PAIN 1-3 Last Admin: 05/28/18 02:08 Dose: 650 mg Aspirin (Asa -) 81 mg PO DAILY [facility] Last Admin: 05/28/18 10:04 Dose: 81 mg Atorvastatin Calcium (Lipitor -) 20 mg PO HS [facility] Last Admin: 05/27/18 22:14 Dose: 20 mg Benzocaine/Menthol (Cepacol Lozenge -) 1 each MM PRN PRN PRN Reason: SORE THROAT Docusate Sodium (Colace -) 100 mg PO Q8H PRN PRN Reason: CONSTIPATION Enoxaparin Sodium (Lovenox -) 40 mg SQ DAILY [facility] Last Admin: 05/28/18 10:06 Dose: 40 mg Furosemide (Lasix -) 40 mg PO DAILY [facility] Last Admin: 05/28/18 10:04 Dose: 40 mg Aztreonam 2 gm/ Dextrose 100 mls @ 100 mls/hr IVPB Q8H-IV [facility]; Protocol Last Admin: 05/28/18 10:06 Dose: 100 mls/hr Clindamycin Phosphate (Cleocin 600 Mg Premix Ivpb -) 600 mg in 50 mls @ 100 mls /hr IVPB Q8H-IV [facility]; Protocol Last Admin: 05/28/18 10:04 Dose: 100 mls/hr Insulin Aspart (Novolog Vial Sliding Scale -) 1 vial SQ ACHS [facility]; Protocol Last Admin: 05/28/18 06:15 Dose: 2 units Lactobacillus Acidophilus (Bacid -) 1 tab PO DAILY [facility] Last Admin: 05/28/18 10:04 Dose: 1 tab Levothyroxine Sodium (Synthroid -) 75 mcg PO 0700 [facility] Last Admin: 05/28/18 06:16 Dose: 75 mcg Metformin HCl (Glucophage -) 500 mg PO BID@0700,1630 [facility] Last Admin: 05/28/18 06:15 Dose: Not Given Multivitamins/Minerals/Vitamin C (Tab-A-Vit -) 1 tab PO DAILY [facility] Last Admin: 05/28/18 10:04 Dose: 1 tab Ondansetron HCl (Zofran Injection) 4 mg IVPUSH Q6H PRN PRN Reason: NAUSEA Potassium Chloride (K-Dur -) 20 meq PO DAILY [facility] Last Admin: 05/28/18 10:04 Dose: 20 meq - Objective Vital Signs: Vital Signs Temperature 98.1 F 05/28/18 05:50 Pulse Rate 89 05/28/18 05:50 Respiratory Rate 20 05/28/18 05:50 Blood Pressure 115/59 L 05/28/18 05:50 O2 Sat by Pulse Oximetry (%) 95 05/27/18 21:00 Constitutional: Yes: Well Nourished, No Distress, Calm, Obese Cardiovascular: Yes: WNL, Regular Rate and Rhythm. No: Murmur Respiratory: Yes: WNL, Regular, CTA Bilaterally, Diminished, On Nasal O2. No: Accessory Muscle Use, SOB, Tachypnea, Wheezes Gastrointestinal: Yes: WNL, Normal Bowel Sounds, Soft, Abdomen, Obese. No: Distention, Tenderness, Vomiting Genitourinary: Yes: WNL Extremities: Yes: Erythema (improved) Edema: Yes Edema: LLE: Trace, RLE: Trace Integumentary: Yes: Other (right foot ulcer) Wound/Incision: Yes: Dressing Dry and Intact Neurological: Yes: WNL, Alert, Oriented Psychiatric: Yes: WNL, Alert, Oriented Labs: CBC, BMP 05/28/18 06:20 05/28/18 06:20 INR, PTT INR 0.98 (0.83-1.09) 05/24/18 15:57 Assessment/Plan (1) Diabetic foot ulcer Assessment/Plan: draining purulent drainage, s/p debridement santyl, dressing change daily aztreonam, clindamycin day 3 wound culture + ecoli esr trending down MRI- awaiting final read podiatry consult appreciated ID following Code(s): E11.621 - TYPE 2 DIABETES MELLITUS WITH FOOT ULCER; L97.509 - NON- PRESSURE CHRONIC ULCER OTH PRT UNSP FOOT W UNSP SEVERITY Qualifiers: Diabetic foot ulcer location: heel Diabetes mellitus type: type 2 Laterality: right Non-pressure ulcer stage: unspecified non-pressure ulcer stage Qualified Code(s): E11.621 - Type 2 diabetes mellitus with foot ulcer; L97.419 - Non-pressure chronic ulcer of right heel and midfoot with unspecified severity (2) Cellulitis of right leg Assessment/Plan: improved Code(s): L03.115 - CELLULITIS OF RIGHT LOWER LIMB (3) Drug rash Assessment/Plan: improved Code(s): L27.0 - GEN SKIN ERUPTION DUE TO DRUGS AND MEDS TAKEN INTERNALLY (4) Hypercapnic acidosis Assessment/Plan: abg- mild resp acidosis w/ compensatory alkalosis CTA- patchy consolidations /atelectasis urine legionella pending on O2 via NC b/l duplex/cta neg pulm following Code(s): E87.2 - ACIDOSIS (5) Benign hypertension Assessment/Plan: stable continue lasix Code(s): I10 - ESSENTIAL (PRIMARY) HYPERTENSION (6) Diabetes Assessment/Plan: Hgb A1c 7.8 continue BGM, Metformin, Insulin sliding scale diabetic diet Code(s): E11.9 - TYPE 2 DIABETES MELLITUS WITHOUT COMPLICATIONS Qualifiers: Diabetes mellitus type: type 2 Diabetes mellitus [employer] insulin use: without [employer] use Diabetes mellitus complication status: with skin complications Diabetes mellitus complication detail: with foot ulcer Qualified Code(s): E11.621 - Type 2 diabetes mellitus with foot ulcer; L97.509 - Non-pressure chronic ulcer of other part of unspecified foot with unspecified severity (7) HLD (hyperlipidemia) Assessment/Plan: continue Lipitor Code(s): E78.5 - HYPERLIPIDEMIA, UNSPECIFIED (8) Hypothyroid Assessment/Plan: continue synthroid Code(s): E03.9 - HYPOTHYROIDISM, UNSPECIFIED (9) Morbid obesity Assessment/Plan: continue life style modifications Code(s): E66.01 - MORBID (SEVERE) OBESITY DUE TO EXCESS CALORIES (10) CHF (congestive heart failure) Assessment/Plan: stable echo without acute changes cardiology following Code(s): I50.9 - HEART FAILURE, UNSPECIFIED Qualifiers: Heart failure type: diastolic Heart failure chronicity: chronic Qualified Code(s): I50.32 - Chronic diastolic (congestive) heart failure (11) Hypokalemia Assessment/Plan: kcl 40meq x 2 kcl changed to 40meq scheduled monitor bmp Code(s): E87.6 - HYPOKALEMIA (12) Hypomagnesemia Assessment/Plan: mild iv mg 1mg x 1 Code(s): E83.42 - HYPOMAGNESEMIA (13) Diarrhea Assessment/Plan: suspect 2/2 antibx r/o infectious- cdiff test ordered monitor Code(s): R19.7 - DIARRHEA, UNSPECIFIED Qualifiers: Diarrhea type: unspecified type Qualified Code(s): R19.7 - Diarrhea, unspecified Dispo: SNF, pending ID/pulm clearance
[2018-05-28] MEDS ORDERED: MAGNESIUM SULF 50% (8.12 MEQ/2 ML-1 GM VIAL) IVPB ONE (10:24)
--- NOTE | 2018-05-28 11:52 | PN ---
Progress Note (short form) - Note Progress Note: Progress Note, Physician Chief Complaint: cellulitis History of Present Illness: stable dyspnea and cough. no chest pain, palps, dizziness, lightheadedness Current Medications Acetaminophen (Tylenol -) 650 mg PO Q4H PRN PRN Reason: PAIN 1-3 Last Admin: 05/28/18 02:08 Dose: 650 mg Aspirin (Asa -) 81 mg PO DAILY [facility] Last Admin: 05/28/18 10:04 Dose: 81 mg Atorvastatin Calcium (Lipitor -) 20 mg PO HS [facility] Last Admin: 05/27/18 22:14 Dose: 20 mg Benzocaine/Menthol (Cepacol Lozenge -) 1 each MM PRN PRN PRN Reason: SORE THROAT Collagenase (Santyl -) 1 applic TP DAILY [facility]; Protocol Docusate Sodium (Colace -) 100 mg PO Q8H PRN PRN Reason: CONSTIPATION Enoxaparin Sodium (Lovenox -) 40 mg SQ DAILY [facility] Last Admin: 05/28/18 10:06 Dose: 40 mg Furosemide (Lasix -) 40 mg PO DAILY [facility] Last Admin: 05/28/18 10:04 Dose: 40 mg Aztreonam 2 gm/ Dextrose 100 mls @ 100 mls/hr IVPB Q8H-IV [facility]; Protocol Last Admin: 05/28/18 10:06 Dose: 100 mls/hr Clindamycin Phosphate (Cleocin 600 Mg Premix Ivpb -) 600 mg in 50 mls @ 100 mls /hr IVPB Q8H-IV [facility]; Protocol Last Admin: 05/28/18 10:04 Dose: 100 mls/hr Insulin Aspart (Novolog Vial Sliding Scale -) 1 vial SQ ACHS [facility]; Protocol Last Admin: 05/28/18 06:15 Dose: 2 units Lactobacillus Acidophilus (Bacid -) 1 tab PO DAILY [facility] Last Admin: 05/28/18 10:04 Dose: 1 tab Levothyroxine Sodium (Synthroid -) 75 mcg PO 0700 [facility] Last Admin: 05/28/18 06:16 Dose: 75 mcg Metformin HCl (Glucophage -) 500 mg PO BID@0700,1630 [facility] Last Admin: 05/28/18 06:15 Dose: Not Given Multivitamins/Minerals/Vitamin C (Tab-A-Vit -) 1 tab PO DAILY [facility] Last Admin: 05/28/18 10:04 Dose: 1 tab Ondansetron HCl (Zofran Injection) 4 mg IVPUSH Q6H PRN PRN Reason: NAUSEA Potassium Chloride (K-Dur -) 40 meq PO DAILY [facility] Potassium Chloride (Potassium Chloride Oral Liquid) 40 meq PO BID [facility] Stop: 05/28/18 14:01 - Objective Vital Signs: Vital Signs Period Temp Pulse Resp BP Sys/Donohue Pulse Ox Last 24 Hr 97.5 F-98.4 F 94-100 18-20 109-135/56-87 93-98 Constitutional: Yes: No Distress, Calm, Obese Cardiovascular: Yes: Regular Rate and Rhythm, S1, S2. No: JVD (tds habitus), Gallop, Murmur Respiratory: Yes: Regular, CTA Bilaterally (auscultated anteriorly, poor effort) . No: Rhonchi, Wheezes Extremities: No: Cold Edema: No (+ erythema shins) Neurological: Yes: Alert, Oriented Psychiatric: No: Agitated Assessment/Plan ecg: sr, nl intervals, no ischemic changes CXR: no sig chf Echo 10/2016: tds; low nl lvef, nl rv, mild lae, mod tr, rvsp 40-50 Echo 02/2016: suboptimal. grossly nl lv size. Mild-mod LV dysfunction. RV not well seen. Mild ARLYN. Mod TR. RVSP 40-50. Small effusion < 1 cm. stress MPI 06/08: no ischemic EKG changes. nl perfusion. EF 45%, global. echo 05/2018 tds, mod TR, LV grossly nl size/function, RVSP 68 mmHg CTA chest: patchy consolidations/atelectasis. no PE Assessment/Plan 73 yo female here with non healing foot wound, redness of le's. le cellulitis: -abx per ID chronic diast chf, pulm HTN (WHO 2?): - preserved LVEF (11/07 echo) with no signif valve dysfunction and only mild-mod pulm HTN then - appears euvolemic. habitus tds for volume assessment. - continue PO lasix - pt hypoxic on RA--? ATX/suboptimal depth of inspiration. - CXR no acute process, echo nl EF with pulm HTN, remains hypoxic - pulm following, CTA chest no PE, patchy consolidations/atelectasis HTN - bp overall controlled, stable - cont current mgmt HLD - con't home statin regimen
[2018-05-28] MEDS ORDERED: POTASSIUM CHLORIDE ORAL LIQUID 20 MEQ/15 ML PO SCH ×2 (14:00→22:00)
--- NOTE | 2018-05-28 14:48 | PN ---
Progress Note, Physician History of Present Illness: pulmonary alert,still c/o sob at rest ,-cp,+ dry cough - Current Medication List Current Medications: Active Medications Acetaminophen (Tylenol -) 650 mg PO Q4H PRN PRN Reason: PAIN 1-3 Last Admin: 05/28/18 02:08 Dose: 650 mg Aspirin (Asa -) 81 mg PO DAILY [facility] Last Admin: 05/28/18 10:04 Dose: 81 mg Atorvastatin Calcium (Lipitor -) 20 mg PO HS [facility] Last Admin: 05/27/18 22:14 Dose: 20 mg Benzocaine/Menthol (Cepacol Lozenge -) 1 each MM PRN PRN PRN Reason: SORE THROAT Collagenase (Santyl -) 1 applic TP DAILY [facility]; Protocol Docusate Sodium (Colace -) 100 mg PO Q8H PRN PRN Reason: CONSTIPATION Enoxaparin Sodium (Lovenox -) 40 mg SQ DAILY [facility] Last Admin: 05/28/18 10:06 Dose: 40 mg Furosemide (Lasix -) 40 mg PO DAILY [facility] Last Admin: 05/28/18 10:04 Dose: 40 mg Aztreonam 2 gm/ Dextrose 100 mls @ 100 mls/hr IVPB Q8H-IV [facility]; Protocol Last Admin: 05/28/18 10:06 Dose: 100 mls/hr Clindamycin Phosphate (Cleocin 600 Mg Premix Ivpb -) 600 mg in 50 mls @ 100 mls /hr IVPB Q8H-IV [facility]; Protocol Last Admin: 05/28/18 10:04 Dose: 100 mls/hr Insulin Aspart (Novolog Vial Sliding Scale -) 1 vial SQ ACHS [facility]; Protocol Last Admin: 05/28/18 06:15 Dose: 2 units Lactobacillus Acidophilus (Bacid -) 1 tab PO DAILY [facility] Last Admin: 05/28/18 10:04 Dose: 1 tab Levothyroxine Sodium (Synthroid -) 75 mcg PO 0700 [facility] Last Admin: 05/28/18 06:16 Dose: 75 mcg Metformin HCl (Glucophage -) 500 mg PO BID@0700,1630 [facility] Last Admin: 05/28/18 06:15 Dose: Not Given Multivitamins/Minerals/Vitamin C (Tab-A-Vit -) 1 tab PO DAILY [facility] Last Admin: 05/28/18 10:04 Dose: 1 tab Ondansetron HCl (Zofran Injection) 4 mg IVPUSH Q6H PRN PRN Reason: NAUSEA Potassium Chloride (K-Dur -) 40 meq PO DAILY [facility] - Objective Vital Signs: Vital Signs Temperature 98.2 F 05/28/18 14:00 Pulse Rate 94 H 05/28/18 14:00 Respiratory Rate 21 H 05/28/18 14:00 Blood Pressure 118/58 L 05/28/18 14:00 O2 Sat by Pulse Oximetry (%) 95 05/27/18 21:00 Constitutional: Yes: Well Nourished, Calm Eyes: Yes: WNL HENT: Yes: WNL Neck: Yes: WNL Cardiovascular: Yes: Regular Rate and Rhythm, S1, S2 Respiratory: Yes: Diminished Gastrointestinal: Yes: Normal Bowel Sounds, Soft Extremities: Yes: Erythema (less erythema bilaterally lower ext) Edema: Yes Labs: CBC, BMP 05/28/18 06:20 05/28/18 06:20 INR, PTT INR 0.98 (0.83-1.09) 05/24/18 15:57 - ....Imaging Cat Scan: Report Reviewed, Image Reviewed Problem List - Problems (1) Acute on chronic respiratory failure with hypoxia and hypercapnia Code(s): J96.21 - ACUTE AND CHRONIC RESPIRATORY FAILURE WITH HYPOXIA; J96.22 - ACUTE AND CHRONIC RESPIRATORY FAILURE WITH HYPERCAPNIA (2) CHF (congestive heart failure) Code(s): I50.9 - HEART FAILURE, UNSPECIFIED Qualifiers: Qualified Code(s): I50.32 - Chronic diastolic (congestive) heart failure (3) Diabetic foot ulcer Code(s): E11.621 - TYPE 2 DIABETES MELLITUS WITH FOOT ULCER; L97.509 - NON- PRESSURE CHRONIC ULCER OTH PRT UNSP FOOT W UNSP SEVERITY Qualifiers: Qualified Code(s): E11.621 - Type 2 diabetes mellitus with foot ulcer; L97.419 - Non-pressure chronic ulcer of right heel and midfoot with unspecified severity (4) Hypercapnic acidosis Code(s): E87.2 - ACIDOSIS (5) Oxygen desaturation Code(s): R09.02 - HYPOXEMIA (6) Anemia Code(s): D64.9 - ANEMIA, UNSPECIFIED Qualifiers: Qualified Code(s): D64.9 - Anemia, unspecified (7) DM Diabetes mellitus Code(s): E11.9 - TYPE 2 DIABETES MELLITUS WITHOUT COMPLICATIONS (8) HLD (hyperlipidemia) Code(s): E78.5 - HYPERLIPIDEMIA, UNSPECIFIED (9) Hypoxia Code(s): R09.02 - HYPOXEMIA (10) Morbid obesity Code(s): E66.01 - MORBID (SEVERE) OBESITY DUE TO EXCESS CALORIES (11) Pulmonary HTN Code(s): I27.20 - PULMONARY HYPERTENSION, UNSPECIFIED Assessment/Plan IMP ACUTE ON CHRONIC HYPOXEMIC/HYPERCAPNEIC RESPIRATORY FAILURE SEVERE PULMONARY HTN ? OVERLAP SYNDROME,? CHRONIC PEs CHF COPD LIKELY OSAS HTN DM HYPOTHYROID CELLULITIS IMPROVING PLAN O2 ABX INHALED BRONCHODILATORS LASIX SLEEP SCREEN CONSIDER V/Q SCAN TO R/O CHRONIC PE INCENTIVE SPIROMETER DR NGUYEN Problem List - Problems (1) Acute on chronic respiratory failure with hypoxia and hypercapnia Code(s): J96.21 - ACUTE AND CHRONIC RESPIRATORY FAILURE WITH HYPOXIA; J96.22 - ACUTE AND CHRONIC RESPIRATORY FAILURE WITH HYPERCAPNIA (2) CHF (congestive heart failure) Code(s): I50.9 - HEART FAILURE, UNSPECIFIED Qualifiers: Heart failure type: diastolic Heart failure chronicity: chronic Qualified Code(s): I50.32 - Chronic diastolic (congestive) heart failure (3) Diabetic foot ulcer Code(s): E11.621 - TYPE 2 DIABETES MELLITUS WITH FOOT ULCER; L97.509 - NON- PRESSURE CHRONIC ULCER OTH PRT UNSP FOOT W UNSP SEVERITY Qualifiers: Diabetic foot ulcer location: heel Diabetes mellitus type: type 2 Laterality: right Non-pressure ulcer stage: unspecified non-pressure ulcer stage Qualified Code(s): E11.621 - Type 2 diabetes mellitus with foot ulcer; L97.419 - Non-pressure chronic ulcer of right heel and midfoot with unspecified severity (4) Hypercapnic acidosis Code(s): E87.2 - ACIDOSIS (5) Oxygen desaturation Code(s): R09.02 - HYPOXEMIA (6) Anemia Code(s): D64.9 - ANEMIA, UNSPECIFIED Qualifiers: Anemia type: unspecified type Qualified Code(s): D64.9 - Anemia, unspecified (7) DM Diabetes mellitus Code(s): E11.9 - TYPE 2 DIABETES MELLITUS WITHOUT COMPLICATIONS (8) HLD (hyperlipidemia) Code(s): E78.5 - HYPERLIPIDEMIA, UNSPECIFIED (9) Hypoxia Code(s): R09.02 - HYPOXEMIA (10) Morbid obesity Code(s): E66.01 - MORBID (SEVERE) OBESITY DUE TO EXCESS CALORIES (11) Pulmonary HTN Code(s): I27.20 - PULMONARY HYPERTENSION, UNSPECIFIED
--- NOTE | 2018-05-28 14:50 | PN ---
Progress Note (short form) - Note Progress Note: clinicallly improved +cough +diarrhea Vital Signs Period Temp Pulse Resp BP Sys/Donohue Pulse Ox Last 24 Hr 97.4 F-98.2 F 89-95 17-21 113-134/53-65 95-95 cor-rrr lungs clear abd soft,nt ext less erythema of the legs heel ulcer dry CBC, BMP 05/28/18 06:20 05/28/18 06:20 Microbiology 05/24/18 15:50 Foot - Right Plantar Gram Stain - Final 05/24/18 15:50 Foot - Right Plantar Wound Culture - Final Escherichia Coli Staphylococcus Warneri Diphtheroid/Corynebacterium 05/24/18 15:50 Blood - Peripheral Venous Blood Culture - Preliminary NO GROWTH OBTAINED AFTER 72 HOURS, INCUBATION TO CONTINUE FOR 2 DAYS. 05/24/18 16:00 Blood - Peripheral Venous Blood Culture - Preliminary NO GROWTH OBTAINED AFTER 72 HOURS, INCUBATION TO CONTINUE FOR 2 DAYS. 05/26/18 11:20 Nares - Mrsa Screen - Left MRSA Screen - Final NO MRSA ISOLATED 05/26/18 11:20 Nares - Mrsa Screen - Right MRSA Screen - Final NO MRSA ISOLATED ct scan patchy infiltrate right lung a/p cellulitis-improved, f/u MRI of the foot drug rash-improved ?pneumonia -check urinary antigens continue clindamycin and azactam Problem List - Problems (1) Cellulitis Code(s): L03.90 - CELLULITIS, UNSPECIFIED Qualifiers: Site of cellulitis: extremity Site of cellulitis of extremity: lower extremity Laterality: right Qualified Code(s): L03.115 - Cellulitis of right lower limb (2) DM Diabetes mellitus Code(s): E11.9 - TYPE 2 DIABETES MELLITUS WITHOUT COMPLICATIONS (3) Morbid obesity Code(s): E66.01 - MORBID (SEVERE) OBESITY DUE TO EXCESS CALORIES (4) Drug rash Code(s): L27.0 - GEN SKIN ERUPTION DUE TO DRUGS AND MEDS TAKEN INTERNALLY
[2018-05-28] MEDS: COLLAGENASE CLOSTRIDIUM HIST. 30 GRAMS TUBE TP SCH (17:39)
[2018-05-28] MEDS: ATORVASTATIN CA 20 MG TABLET (FP) PO SCH (21:17)
[2018-05-29] MEDS ORDERED: PT OWN MED DRAWER 7, Y5N ONE ×6 (02:58→21:52)
[2018-05-29] MEDS: AZTREONAM 2 GM in DEXTROSE 5%-WATER 100 ML IVPB SCH ×3 (03:02→18:48)
[2018-05-29] MEDS: CLINDAMYCIN 600MG PREMIX IVPB 600 MG/50 ML BAG IVPB SCH ×4 (03:02→18:49)
[2018-05-29] MEDS: metFORMIN HCL 500 MG TABLET (FP) PO SCH ×3 (06:09→17:04)
[2018-05-29] MEDS: INSULIN SLIDING SCALE (NOVOLOG) 1 VIAL SQ SCH ×4 (06:10→21:56)
[2018-05-29] MEDS: LEVOTHYROXINE NA 75 MCG TABLET (FP) PO SCH (06:10)
[2018-05-29 08:39] LABS: ANION GAP 9 MMOL/L (8-16); BLOOD UREA NITROGEN 10 mg/dL (7-18); CALCIUM 7.6 mg/dL (8.5-10.1); CHLORIDE 98 mmol/L (98-107); CO2 32 mmol/L (21-32); CREATININE 0.7 mg/dL (0.55-1.3); GLUCOSE,RANDOM 167 mg/dL (74-106); POTASSIUM 3.5 mmol/L (3.5-5.1); SODIUM 139 mmol/L (136-145)
[2018-05-29] MEDS ORDERED: KCL 10 MEQ IVPB 10 MEQ/100 ML INFUS.BAG IVPB SCH (08:45)
--- NOTE | 2018-05-29 09:36 | PN ---
Progress Note, Physician Chief Complaint: Pt lying in bed in no acute distress. Pt reports frequent productive cough w/ clear sputum, denies sob but feels the need to catch breath. Denies any chest pain, sob, n/v/d - Current Medication List Current Medications: Active Medications Acetaminophen (Tylenol -) 650 mg PO Q4H PRN PRN Reason: PAIN 1-3 Last Admin: 05/28/18 02:08 Dose: 650 mg Aspirin (Asa -) 81 mg PO DAILY [facility] Last Admin: 05/28/18 10:04 Dose: 81 mg Atorvastatin Calcium (Lipitor -) 20 mg PO HS [facility] Last Admin: 05/28/18 21:17 Dose: 20 mg Benzocaine/Menthol (Cepacol Lozenge -) 1 each MM PRN PRN PRN Reason: SORE THROAT Collagenase (Santyl -) 1 applic TP DAILY [facility]; Protocol Last Admin: 05/28/18 17:39 Dose: 1 applic Docusate Sodium (Colace -) 100 mg PO Q8H PRN PRN Reason: CONSTIPATION Enoxaparin Sodium (Lovenox -) 40 mg SQ DAILY [facility] Last Admin: 05/28/18 10:06 Dose: 40 mg Furosemide (Lasix -) 40 mg PO DAILY [facility] Last Admin: 05/28/18 10:04 Dose: 40 mg Aztreonam 2 gm/ Dextrose 100 mls @ 100 mls/hr IVPB Q8H-IV [facility]; Protocol Last Admin: 05/29/18 03:02 Dose: 100 mls/hr Clindamycin Phosphate (Cleocin 600 Mg Premix Ivpb -) 600 mg in 50 mls @ 100 mls /hr IVPB Q8H-IV [facility]; Protocol Last Admin: 05/29/18 03:02 Dose: 100 mls/hr Potassium Chloride (Potassium Chloride 10 Meq Premix Ivpb -) 10 meq in 100 mls @ 100 mls/hr IVPB Q60M [facility] Stop: 05/29/18 09:44 Insulin Aspart (Novolog Vial Sliding Scale -) 1 vial SQ ACHS [facility]; Protocol Last Admin: 05/29/18 06:10 Dose: 2 units Lactobacillus Acidophilus (Bacid -) 1 tab PO DAILY [facility] Last Admin: 05/28/18 10:04 Dose: 1 tab Levothyroxine Sodium (Synthroid -) 75 mcg PO 0700 [facility] Last Admin: 05/29/18 06:10 Dose: 75 mcg Metformin HCl (Glucophage -) 500 mg PO BID@0700,1630 [facility] Last Admin: 05/29/18 06:09 Dose: 500 mg Multivitamins/Minerals/Vitamin C (Tab-A-Vit -) 1 tab PO DAILY [facility] Last Admin: 05/28/18 10:04 Dose: 1 tab Ondansetron HCl (Zofran Injection) 4 mg IVPUSH Q6H PRN PRN Reason: NAUSEA Potassium Chloride (K-Dur -) 40 meq PO DAILY [facility] - Objective Vital Signs: Vital Signs Temperature 98.1 F 05/29/18 05:40 Pulse Rate 97 H 05/29/18 05:40 Respiratory Rate 20 05/29/18 05:40 Blood Pressure 131/66 05/29/18 05:40 O2 Sat by Pulse Oximetry (%) 96 05/28/18 09:00 Constitutional: Yes: Well Nourished, No Distress, Calm Cardiovascular: Yes: WNL, Regular Rate and Rhythm. No: Murmur Respiratory: Yes: WNL, Regular, CTA Bilaterally, Diminished. No: Accessory Muscle Use, SOB, Tachypnea, Wheezes Gastrointestinal: Yes: WNL, Normal Bowel Sounds, Soft, Abdomen, Obese. No: Distention, Tenderness Genitourinary: Yes: WNL Extremities: Yes: WNL Edema: No Neurological: Yes: WNL, Alert, Oriented Psychiatric: Yes: WNL, Alert, Oriented Labs: CBC, BMP 05/29/18 06:45 INR, PTT INR 0.98 (0.83-1.09) 05/24/18 15:57 Assessment/Plan (1) Diabetic foot ulcer Assessment/Plan: improving santyl, dressing change daily aztreonam, clindamycin day 4 wound culture + ecoli esr trending down MRI- no signs of osteomyelitis podiatry consult appreciated ID following Code(s): E11.621 - TYPE 2 DIABETES MELLITUS WITH FOOT ULCER; L97.509 - NON- PRESSURE CHRONIC ULCER OTH PRT UNSP FOOT W UNSP SEVERITY Qualifiers: Diabetic foot ulcer location: heel Diabetes mellitus type: type 2 Laterality: right Non-pressure ulcer stage: unspecified non-pressure ulcer stage Qualified Code(s): E11.621 - Type 2 diabetes mellitus with foot ulcer; L97.419 - Non-pressure chronic ulcer of right heel and midfoot with unspecified severity (2) Cellulitis of right leg Assessment/Plan: improved Code(s): L03.115 - CELLULITIS OF RIGHT LOWER LIMB (3) Drug rash Assessment/Plan: improved Code(s): L27.0 - GEN SKIN ERUPTION DUE TO DRUGS AND MEDS TAKEN INTERNALLY (4) Hypercapnic acidosis Assessment/Plan: abg- mild resp acidosis w/ compensatory alkalosis CTA- patchy consolidations /atelectasis PE ruled out urine legionella pending on O2 via NE pulm following Code(s): E87.2 - ACIDOSIS (5) Pneumonia Assessment/Plan: patchy consolidations on cta, acute hypoxia, +cough suspect probable pna covered w/ antibx- day 4 case discussed with pulm/ID Code(s): J18.9 - PNEUMONIA, UNSPECIFIED ORGANISM Qualifiers: Pneumonia type: due to unspecified organism Laterality: bilateral (6) Benign hypertension Assessment/Plan: stable continue lasix Code(s): I10 - ESSENTIAL (PRIMARY) HYPERTENSION (7) Diabetes Assessment/Plan: Hgb A1c 7.8 continue BGM, Metformin, Insulin sliding scale diabetic diet Code(s): E11.9 - TYPE 2 DIABETES MELLITUS WITHOUT COMPLICATIONS Qualifiers: Diabetes mellitus type: type 2 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 Diabetes mellitus complication status: with skin complications Diabetes mellitus complication detail: with foot ulcer Qualified Code(s): E11.621 - Type 2 diabetes mellitus with foot ulcer; L97.509 - Non-pressure chronic ulcer of other part of unspecified foot with unspecified severity (8) HLD (hyperlipidemia) Assessment/Plan: continue Lipitor Code(s): E78.5 - HYPERLIPIDEMIA, UNSPECIFIED (9) Hypothyroid Assessment/Plan: continue synthroid Code(s): E03.9 - HYPOTHYROIDISM, UNSPECIFIED (10) Morbid obesity Assessment/Plan: continue life style modifications Code(s): E66.01 - MORBID (SEVERE) OBESITY DUE TO EXCESS CALORIES (11) CHF (congestive heart failure) Assessment/Plan: stable echo without acute changes cardiology following Code(s): I50.9 - HEART FAILURE, UNSPECIFIED Qualifiers: Heart failure type: diastolic Heart failure chronicity: chronic Qualified Code(s): I50.32 - Chronic diastolic (congestive) heart failure (12) Hypokalemia Assessment/Plan: kcl iv [id number] kcl 40meq scheduled monitor bmp Code(s): E87.6 - HYPOKALEMIA (13) Hypomagnesemia Assessment/Plan: improved Code(s): E83.42 - HYPOMAGNESEMIA (14) Diarrhea Assessment/Plan: resolved infectious etiology ruled out Code(s): R19.7 - DIARRHEA, UNSPECIFIED Qualifiers: Diarrhea type: unspecified type Qualified Code(s): R19.7 - Diarrhea, unspecified Dispo: SNF, pending ID/pulm clearance
[2018-05-29] MEDS: POTASSIUM CHLORIDE TABS 20 MEQ TABLET.ER (FP) PO SCH (10:00)
[2018-05-29] MEDS: ASPIRIN 81 MG CHEWABLE TABLETS PO SCH (10:00)
[2018-05-29] MEDS: MULTIVITAMINS (DAILY MVI) TABLET (FP) PO SCH (10:00)
[2018-05-29] MEDS: LACTOBACILLUS ACIDOPHILUS 1 TABLET PO SCH (10:00)
[2018-05-29] MEDS: FUROSEMIDE 40 MG TABLET (FP) PO SCH (10:00)
[2018-05-29] MEDS: ENOXAPARIN NA (PORCINE) 40 MG/0.4 ML DISP.SYRIN SQ SCH (10:03)
--- NOTE | 2018-05-29 10:21 | PN ---
Progress Note (short form) - Note Progress Note: Chief Complaint: cellulitis History of Present Illness: cough overnight, productive of white sputum. no chest pain, palps, dizziness, lightheadedness Current Medications Generic Name Dose Route Start Last Admin Trade Name Freq PRN Reason Stop Dose Admin Acetaminophen 650 mg 05/24/18 17:57 05/28/18 02:08 Tylenol - PO 650 mg Q4H PRN Administration PAIN 1-3 Aspirin 81 mg 05/25/18 10:00 05/29/18 10:00 Asa - PO 81 mg DAILY [facility] Administration Atorvastatin Calcium 20 mg 05/24/18 22:00 05/28/18 21:17 Lipitor - PO 20 mg HS LISA Administration Benzocaine/Menthol 1 each 05/25/18 08:37 Cepacol Lozenge - MM PRN PRN SORE THROAT Collagenase 1 applic 05/28/18 10:15 05/28/18 17:39 Santyl - TP 1 applic DAILY [facility] Administration Protocol Docusate Sodium 100 mg 05/24/18 17:55 Colace - PO Q8H PRN CONSTIPATION Enoxaparin Sodium 40 mg 05/25/18 10:00 05/29/18 10:03 Lovenox - SQ 40 mg DAILY [facility] Administration Furosemide 40 mg 05/25/18 10:00 05/29/18 10:00 Lasix - PO 40 mg DAILY [facility] Administration Aztreonam 2 gm/ Dextrose 100 mls @ 100 mls/hr 05/25/18 18:00 05/29/18 03:02 IVPB 100 mls/hr Q8H-IV [facility] Administration Protocol Clindamycin Phosphate 600 mg in 50 mls @ 100 mls/hr 05/25/18 18:00 05/29/18 10:04 Cleocin 600 Mg Premix Ivpb - IVPB 100 mls/hr Q8H-IV [facility] Administration Protocol Insulin Aspart 1 vial 05/24/18 22:00 05/29/18 06:10 Novolog Vial Sliding Scale - SQ 2 units ACHS LISA Administration Protocol Lactobacillus Acidophilus 1 tab 05/24/18 18:30 05/29/18 10:00 Bacid - PO 1 tab DAILY [facility] Administration Levothyroxine Sodium 75 mcg 05/25/18 07:00 05/29/18 06:10 Synthroid - PO 75 mcg 0700 LISA Administration Metformin HCl 500 mg 05/25/18 07:00 05/29/18 06:09 Glucophage - PO 500 mg BID@0700,1630 [facility] Administration Multivitamins/Minerals/Vitamin C 1 tab 05/25/18 10:00 05/29/18 10:00 Tab-A-Vit - PO 1 tab DAILY [facility] Administration Ondansetron HCl 4 mg 05/24/18 17:57 Zofran Injection IVPUSH Q6H PRN NAUSEA Potassium Chloride 40 meq 05/28/18 10:20 05/29/18 10:00 K-Dur - PO 40 meq DAILY [facility] Administration - Objective Vital Signs: Vital Signs Period Temp Pulse Resp BP Sys/Donohue Pulse Ox Last 24 Hr 97.9 F-98.2 F 94-97 20-21 118-142/58-78 Constitutional: Yes: No Distress, Calm, Obese Cardiovascular: Yes: Regular Rate and Rhythm, S1, S2. No: JVD (tds habitus), Gallop, Murmur Respiratory: Yes: Regular, CTA Bilaterally (auscultated anteriorly, poor effort) . No: Rhonchi, Wheezes Extremities: No: Cold Edema: No (+ erythema shins) Neurological: Yes: Alert, Oriented Psychiatric: No: Agitated no jaundice diaphoresis ecg: sr, nl intervals, no ischemic changes CXR: no sig chf Echo 10/2016: tds; low nl lvef, nl rv, mild lae, mod tr, rvsp 40-50 Echo 02/2016: suboptimal. grossly nl lv size. Mild-mod LV dysfunction. RV not well seen. Mild ARLYN. Mod TR. RVSP 40-50. Small effusion < 1 cm. stress MPI 06/08: no ischemic EKG changes. nl perfusion. EF 45%, global. echo 05/2018 tds, mod TR, LV grossly nl size/function, RVSP 68 mmHg CTA chest: patchy consolidations/atelectasis. no PE Assessment/Plan 73 yo female here with non healing foot wound, redness of le's. le cellulitis: -abx per ID chronic diast chf, pulm HTN (WHO 2?): - preserved LVEF (11/07 echo) with no signif valve dysfunction and only mild-mod pulm HTN then - appears euvolemic. habitus tds for volume assessment. - continue PO lasix - pt hypoxic on RA--? ATX/suboptimal depth of inspiration. - CXR no acute process, echo nl EF with pulm HTN, remains hypoxic - pulm following, CTA chest no PE, patchy consolidations/atelectasis HTN - bp overall controlled, stable - cont current mgmt HLD - con't home statin regimen
[2018-05-29 10:25] LABS: ERYTHROCYTE SEDIMENTATION RATE 36 mm/hr (0-30)
[2018-05-29 11:01] LABS: BASO % 0.3 % (0-2.0); EOS % 6.7 % (0-4.5); HEMATOCRIT 31.1 % (32.4-45.2); HEMOGLOBIN 10.2 GM/dL (10.7-15.3); LYMPH % 12.6 % (8-40); MCH 28.6 pg (25.7-33.7); MCHC 32.9 g/dl (32.0-36.0); MEAN CELL VOLUME 87.2 fl (80-96); MEAN PLT VOLUME 9.9 fl (7.5-11.1); MONO % 5.9 % (3.8-10.2); NEUT % 74.5 % (42.8-82.8); PLATELET COUNT 243 K/MM3 (134-434); RBC 3.57 M/mm3 (3.60-5.2); WHITE BLOOD COUNT 8.1 K/mm3 (4.0-10.0)
[2018-05-29] MEDS ORDERED: INSULIN (NOVOLOG) ASPART 100 UNITS/ML 10ML VIAL ONE (11:31)
--- NOTE | 2018-05-29 11:58 | PN ---
Progress Note (short form) - Note Progress Note: PULMONARY Still with some shortness of breath. +cough with thick clear sputum. No fevers or chills. Vital Signs Period Temp Pulse Resp BP Sys/Donohue Pulse Ox Last 24 Hr 97.9 F-98.2 F 94-97 20-21 118-142/58-78 Gen: NAD at rest Heart: RRR Lung: decreased breath sounds at the bases Abd: soft, nontender Ext: no edema CBC, BMP 05/29/18 06:45 05/29/18 06:45 Active Medications Acetaminophen (Tylenol -) 650 mg PO Q4H PRN PRN Reason: PAIN 1-3 Last Admin: 05/28/18 02:08 Dose: 650 mg Aspirin (Asa -) 81 mg PO DAILY [facility] Last Admin: 05/29/18 10:00 Dose: 81 mg Atorvastatin Calcium (Lipitor -) 20 mg PO HS [facility]ISA Last Admin: 05/28/18 21:17 Dose: 20 mg Benzocaine/Menthol (Cepacol Lozenge -) 1 each MM PRN PRN PRN Reason: SORE THROAT Collagenase (Santyl -) 1 applic TP DAILY [facility]; Protocol Last Admin: 05/28/18 17:39 Dose: 1 applic Docusate Sodium (Colace -) 100 mg PO Q8H PRN PRN Reason: CONSTIPATION Enoxaparin Sodium (Lovenox -) 40 mg SQ DAILY [facility] Last Admin: 05/29/18 10:03 Dose: 40 mg Furosemide (Lasix -) 40 mg PO DAILY [facility] Last Admin: 05/29/18 10:00 Dose: 40 mg Aztreonam 2 gm/ Dextrose 100 mls @ 100 mls/hr IVPB Q8H-IV [facility]; Protocol Last Admin: 05/29/18 03:02 Dose: 100 mls/hr Clindamycin Phosphate (Cleocin 600 Mg Premix Ivpb -) 600 mg in 50 mls @ 100 mls /hr IVPB Q8H-IV [facility]; Protocol Last Admin: 05/29/18 10:04 Dose: 100 mls/hr Insulin Aspart (Novolog Vial Sliding Scale -) 1 vial SQ ACHS [facility]; Protocol Last Admin: 05/29/18 11:42 Dose: 2 units Lactobacillus Acidophilus (Bacid -) 1 tab PO DAILY [facility] Last Admin: 05/29/18 10:00 Dose: 1 tab Levothyroxine Sodium (Synthroid -) 75 mcg PO 0700 [facility] Last Admin: 05/29/18 06:10 Dose: 75 mcg Metformin HCl (Glucophage -) 500 mg PO BID@0700,1630 [facility] Last Admin: 05/29/18 06:09 Dose: 500 mg Multivitamins/Minerals/Vitamin C (Tab-A-Vit -) 1 tab PO DAILY [facility] Last Admin: 05/29/18 10:00 Dose: 1 tab Ondansetron HCl (Zofran Injection) 4 mg IVPUSH Q6H PRN PRN Reason: NAUSEA Potassium Chloride (K-Dur -) 40 meq PO DAILY [facility] Last Admin: 05/29/18 10:00 Dose: 40 meq A/P Acute on Chronic Hypoxic and Hypercapneic Respiratory Failure LV Diastolic Dysfunction Pulmonary HTN COPD Likely LUCIUS r/o Pneumonia Cellulitis HTN DM Hypothyroidism - continue antibiotics - home lasix - inhaled bronchodilators - incentive spirometry - O2 to keep SpO2 >90% - will need outpt f/u of chest imaging to ensure resolution of infiltrates - DVT prophylaxis
[2018-05-29] MEDS ORDERED: ALBUTEROL SO4 0.083% IH SOL 2.5 MG/3 ML VIAL.NEB. NEB PRN (12:00)
[2018-05-29] MEDS: ALBUTEROL SO4 2.5/IPRATROPIUM 0.5 INH SOL 3 ML VIAL.NEB. NEB SCH ×2 (15:00→20:24)
[2018-05-29] MEDS: COLLAGENASE CLOSTRIDIUM HIST. 30 GRAMS TUBE TP SCH (17:01)
--- NOTE | 2018-05-29 17:57 | PN ---
Progress Note (short form) - Note Progress Note: clinicallly improved +cough Vital Signs Period Temp Pulse Resp BP Sys/Donohue Pulse Ox Last 24 Hr 97.8 F-98.2 F 92-97 17-21 131-152/66-78 96 cor-rrr lungs clear, decreased bs at bases abd soft,nt ext less erythema of both legs CBC, BMP 05/29/18 06:45 05/29/18 06:45 Microbiology 05/24/18 15:50 Blood - Peripheral Venous Blood Culture - Final NO GROWTH AFTER 5 DAYS INCUBATION 05/24/18 16:00 Blood - Peripheral Venous Blood Culture - Final NO GROWTH AFTER 5 DAYS INCUBATION 05/28/18 11:20 Stool Clostridium difficile Antigen (ROSE) - Final 05/28/18 11:20 Stool Clostridium difficile Toxin Assay - Final 05/24/18 15:50 Foot - Right Plantar Gram Stain - Final 05/24/18 15:50 Foot - Right Plantar Wound Culture - Final Escherichia Coli Staphylococcus Warneri Diphtheroid/Corynebacterium 05/26/18 11:20 Nares - Mrsa Screen - Left MRSA Screen - Final NO MRSA ISOLATED 05/26/18 11:20 Nares - Mrsa Screen - Right MRSA Screen - Final NO MRSA ISOLATED Current Medications Acetaminophen (Tylenol -) 650 mg PO Q4H PRN PRN Reason: PAIN 1-3 Last Admin: 05/28/18 02:08 Dose: 650 mg Albuterol Sulfate (Ventolin 0.083% Nebulizer Soln -) 1 amp NEB Q4H PRN PRN Reason: SHORT OF BREATH/WHEEZING Albuterol/Ipratropium (Duoneb -) 1 amp NEB RTID [facility] Last Admin: 05/29/18 15:00 Dose: 1 amp Aspirin (Asa -) 81 mg PO DAILY [facility] Last Admin: 05/29/18 10:00 Dose: 81 mg Atorvastatin Calcium (Lipitor -) 20 mg PO HS [facility] Last Admin: 05/28/18 21:17 Dose: 20 mg Benzocaine/Menthol (Cepacol Lozenge -) 1 each MM PRN PRN PRN Reason: SORE THROAT Collagenase (Santyl -) 1 applic TP DAILY [facility]; Protocol Last Admin: 05/29/18 17:01 Dose: 1 applic Docusate Sodium (Colace -) 100 mg PO Q8H PRN PRN Reason: CONSTIPATION Enoxaparin Sodium (Lovenox -) 40 mg SQ DAILY [facility] Last Admin: 05/29/18 10:03 Dose: 40 mg Furosemide (Lasix -) 40 mg PO DAILY [facility] Last Admin: 05/29/18 10:00 Dose: 40 mg Aztreonam 2 gm/ Dextrose 100 mls @ 100 mls/hr IVPB Q8H-IV [facility]; Protocol Last Admin: 05/29/18 12:51 Dose: 100 mls/hr Clindamycin Phosphate (Cleocin 600 Mg Premix Ivpb -) 600 mg in 50 mls @ 100 mls /hr IVPB Q8H-IV [facility]; Protocol Last Admin: 05/29/18 18:20 Dose: 100 mls/hr Insulin Aspart (Novolog Vial Sliding Scale -) 1 vial SQ ACHS [facility]; Protocol Last Admin: 05/29/18 16:57 Dose: Not Given Lactobacillus Acidophilus (Bacid -) 1 tab PO DAILY [facility] Last Admin: 05/29/18 10:00 Dose: 1 tab Levothyroxine Sodium (Synthroid -) 75 mcg PO 0700 [facility] Last Admin: 05/29/18 06:10 Dose: 75 mcg Metformin HCl (Glucophage -) 500 mg PO BID@0700,1630 [facility] Last Admin: 05/29/18 17:04 Dose: 500 mg Multivitamins/Minerals/Vitamin C (Tab-A-Vit -) 1 tab PO DAILY [facility] Last Admin: 05/29/18 10:00 Dose: 1 tab Ondansetron HCl (Zofran Injection) 4 mg IVPUSH Q6H PRN PRN Reason: NAUSEA Potassium Chloride (K-Dur -) 40 meq PO DAILY [facility] Last Admin: 05/29/18 10:00 Dose: [address] scan patchy infiltrate right lung MRI no osteomyelitis a/p cellulitis-improved, drug rash-improved- ?pneumonia -check urinary antigens continue clinda/azactam day #4 if improved in am can switch to po levaquin 500 daily to complete 7 days please call back if needed Problem List - Problems (1) Cellulitis Code(s): L03.90 - CELLULITIS, UNSPECIFIED Qualifiers: Site of cellulitis: extremity Site of cellulitis of extremity: lower extremity Laterality: right Qualified Code(s): L03.115 - Cellulitis of right lower limb (2) DM Diabetes mellitus Code(s): E11.9 - TYPE 2 DIABETES MELLITUS WITHOUT COMPLICATIONS (3) Morbid obesity Code(s): E66.01 - MORBID (SEVERE) OBESITY DUE TO EXCESS CALORIES (4) Drug rash Code(s): L27.0 - GEN SKIN ERUPTION DUE TO DRUGS AND MEDS TAKEN INTERNALLY
[2018-05-29] MEDS: ATORVASTATIN CA 20 MG TABLET (FP) PO SCH (21:56)
[2018-05-30] MEDS: CLINDAMYCIN 600MG PREMIX IVPB 600 MG/50 ML BAG IVPB SCH (01:39)
[2018-05-30] MEDS: AZTREONAM 2 GM in DEXTROSE 5%-WATER 100 ML IVPB SCH (02:42)
[2018-05-30] MEDS: metFORMIN HCL 500 MG TABLET (FP) PO SCH (06:05)
[2018-05-30] MEDS: LEVOTHYROXINE NA 75 MCG TABLET (FP) PO SCH (06:05)
[2018-05-30] MEDS: ALBUTEROL SO4 2.5/IPRATROPIUM 0.5 INH SOL 3 ML VIAL.NEB. NEB SCH ×2 (07:10→14:07)
[2018-05-30 08:30] LABS: ANION GAP 6 MMOL/L (8-16); BLOOD UREA NITROGEN 9 mg/dL (7-18); CALCIUM 7.6 mg/dL (8.5-10.1); CHLORIDE 99 mmol/L (98-107); CO2 34 mmol/L (21-32); CREATININE 0.6 mg/dL (0.55-1.3); GLUCOSE,RANDOM 164 mg/dL (74-106); MAGNESIUM 1.7 mg/dL (1.8-2.4); POTASSIUM 3.7 mmol/L (3.5-5.1); SODIUM 138 mmol/L (136-145)
[2018-05-30] MEDS ORDERED: MAGNESIUM SULF 50% (8.12 MEQ/2 ML-1 GM VIAL) IVPB ONE (08:45)
[2018-05-30 09:17] LABS: BASO % 0.4 % (0-2.0); EOS % 4.5 % (0-4.5); HEMOGLOBIN 10.3 GM/dL (10.7-15.3); LYMPH % 15.6 % (8-40); MCH 29.2 pg (25.7-33.7); MCHC 33.3 g/dl (32.0-36.0); MEAN CELL VOLUME 87.7 fl (80-96); MEAN PLT VOLUME 9.3 fl (7.5-11.1); MONO % 6.1 % (3.8-10.2); NEUT % 73.4 % (42.8-82.8); PLATELET COUNT 242 K/MM3 (134-434); RBC 3.53 M/mm3 (3.60-5.2); RDW 16.2 % (11.6-15.6); WHITE BLOOD COUNT 7.6 K/mm3 (4.0-10.0)
--- NOTE | 2018-05-30 10:00 | PN ---
Progress Note (short form) - Note Progress Note: Chief Complaint: cellulitis History of Present Illness: cough overnight, productive of white sputum. no chest pain, palps, dizziness, lightheadedness Current Medications Generic Name Dose Route Start Last Admin Trade Name Freq PRN Reason Stop Dose Admin Acetaminophen 650 mg 05/24/18 17:57 05/28/18 02:08 Tylenol - PO 650 mg Q4H PRN Administration PAIN 1-3 Albuterol Sulfate 1 amp 05/29/18 12:00 Ventolin 0.083% Nebulizer Soln - NEB Q4H PRN SHORT OF BREATH/WHEEZING Albuterol/Ipratropium 1 amp 05/29/18 14:00 05/30/18 07:10 Duoneb - NEB 1 amp RTID LISA Administration Aspirin 81 mg 05/25/18 10:00 05/29/18 10:00 Asa - PO 81 mg DAILY [facility] Administration Atorvastatin Calcium 20 mg 05/24/18 22:00 05/29/18 21:56 Lipitor - PO 20 mg HS LISA Administration Benzocaine/Menthol 1 each 05/25/18 08:37 05/29/18 21:56 Cepacol Lozenge - MM 1 each PRN PRN Administration SORE THROAT Collagenase 1 applic 05/28/18 10:15 05/29/18 17:01 Santyl - TP 1 applic DAILY [facility] Administration Protocol Docusate Sodium 100 mg 05/24/18 17:55 Colace - PO Q8H PRN CONSTIPATION Enoxaparin Sodium 40 mg 05/25/18 10:00 05/29/18 10:03 Lovenox - SQ 40 mg DAILY [facility] Administration Furosemide 40 mg 05/25/18 10:00 05/29/18 10:00 Lasix - PO 40 mg DAILY [facility] Administration Aztreonam 2 gm/ Dextrose 100 mls @ 100 mls/hr 05/25/18 18:00 05/30/18 02:42 IVPB 100 mls/hr Q8H-IV [facility]ISA Administration Protocol Clindamycin Phosphate 600 mg in 50 mls @ 100 mls/hr 05/25/18 18:00 05/30/18 01:39 Cleocin 600 Mg Premix Ivpb - IVPB 100 mls/hr Q8H-IV [facility]ISA Administration Protocol Insulin Aspart 1 vial 05/24/18 22:00 05/29/18 21:56 Novolog Vial Sliding Scale - SQ Not Given ACHS [facility] Protocol Lactobacillus Acidophilus 1 tab 05/24/18 18:30 05/29/18 10:00 Bacid - PO 1 tab DAILY [facility] Administration Levothyroxine Sodium 75 mcg 05/25/18 07:00 05/30/18 06:05 Synthroid - PO 75 mcg 0700 [facility] Administration Metformin HCl 500 mg 05/25/18 07:00 05/30/18 06:05 Glucophage - PO 500 mg BID@0700,1630 [facility] Administration Multivitamins/Minerals/Vitamin C 1 tab 05/25/18 10:00 05/29/18 10:00 Tab-A-Vit - PO 1 tab DAILY [facility] Administration Ondansetron HCl 4 mg 05/24/18 17:57 Zofran Injection IVPUSH Q6H PRN NAUSEA Potassium Chloride 40 meq 05/28/18 10:20 05/29/18 10:00 K-Dur - PO 40 meq DAILY [facility] Administration Vancomycin HCl 125 mg 05/30/18 12:00 Vancomycin Oral Solution PO Q6HPO LISA - Objective Vital Signs: Vital Signs Period Temp Pulse Resp BP Sys/Donohue Pulse Ox Last 24 Hr 97.8 F-98.7 F 92-98 17-21 110-152/61-74 96 Constitutional: Yes: No Distress, Calm, Obese Cardiovascular: Yes: Regular Rate and Rhythm, S1, S2. No: JVD (tds habitus), Gallop, Murmur Respiratory: Yes: Regular, CTA Bilaterally (auscultated anteriorly, poor effort) . No: Rhonchi, Wheezes Extremities: No: Cold Edema: No (+ erythema shins) Neurological: Yes: Alert, Oriented Psychiatric: No: Agitated no jaundice diaphoresis ecg: sr, nl intervals, no ischemic changes CXR: no sig chf Echo 10/2016: tds; low nl lvef, nl rv, mild lae, mod tr, rvsp 40-50 Echo 02/2016: suboptimal. grossly nl lv size. Mild-mod LV dysfunction. RV not well seen. Mild ARLYN. Mod TR. RVSP 40-50. Small effusion < 1 cm. stress MPI 06/08: no ischemic EKG changes. nl perfusion. EF 45%, global. echo 05/2018 tds, mod TR, LV grossly nl size/function, RVSP 68 mmHg CTA chest: patchy consolidations/atelectasis. no PE Assessment/Plan 73 yo female here with non healing foot wound, redness of le's. le cellulitis: -abx per ID chronic diast chf, pulm HTN (WHO 2?): - preserved LVEF (11/07 echo) with no signif valve dysfunction and only mild-mod pulm HTN then - appears euvolemic. habitus tds for volume assessment. - continue PO lasix - pt hypoxic on RA--? ATX/suboptimal depth of inspiration, ?PNA - pulm following, CTA chest no PE, patchy consolidations/atelectasis HTN - bp overall controlled, stable - cont current mgmt HLD - con't home statin regimen
[2018-05-30] MEDS ORDERED: INSULIN (NOVOLOG) ASPART 100 UNITS/ML 10ML VIAL ONE (11:40)
[2018-05-30] MEDS: MULTIVITAMINS (DAILY MVI) TABLET (FP) PO SCH (11:45)
[2018-05-30] MEDS: FUROSEMIDE 40 MG TABLET (FP) PO SCH (11:45)
[2018-05-30] MEDS: ASPIRIN 81 MG CHEWABLE TABLETS PO SCH (11:46)
[2018-05-30] MEDS: POTASSIUM CHLORIDE TABS 20 MEQ TABLET.ER (FP) PO SCH (11:46)
[2018-05-30] MEDS: LACTOBACILLUS ACIDOPHILUS 1 TABLET PO SCH (11:46)
[2018-05-30] MEDS: ENOXAPARIN NA (PORCINE) 40 MG/0.4 ML DISP.SYRIN SQ SCH (11:46)
[2018-05-30] MEDS: INSULIN SLIDING SCALE (NOVOLOG) 1 VIAL SQ SCH ×2 (11:47→11:53)
[2018-05-30] MEDS ORDERED: VANCOMYCIN 250 MG/5 ML ORAL SOLUTION PO SCH (12:00)
--- NOTE | 2018-05-30 12:13 | DS ---
Physical Examination Vital Signs: Vital Signs Temperature 98.4 F 05/30/18 05:45 Pulse Rate 67 05/30/18 10:57 Respiratory Rate 20 05/30/18 05:45 Blood Pressure 114/69 05/30/18 05:45 O2 Sat by Pulse Oximetry (%) 94 L 05/30/18 10:57 Constitutional: Yes: Well Nourished, No Distress Cardiovascular: Yes: WNL, Regular Rate and Rhythm Respiratory: Yes: WNL, Regular, CTA Bilaterally, On Nasal O2. No: Accessory Muscle Use, SOB, Tachypnea, Wheezes Gastrointestinal: Yes: WNL, Normal Bowel Sounds, Soft, Abdomen, Obese. No: Distention, Tenderness Musculoskeletal: Yes: WNL Integumentary: Yes: Venous Stasis Changes Wound/Incision: Yes: Dressing Dry and Intact Neurological: Yes: WNL, Alert, Oriented Psychiatric: Yes: WNL, Alert, Oriented Labs: CBC, BMP 05/30/18 06:45 05/30/18 06:45 Discharge Summary Reason For Visit: DIABETIC FOOT ULCER Current Active Problems Acute on chronic respiratory failure with hypoxia and hypercapnia (Acute) CHF (congestive heart failure) (Acute) COPD (chronic obstructive pulmonary disease) (Acute) Cellulitis of right leg (Acute) Diabetic foot ulcer (Acute) Diarrhea (Acute) Drug rash (Acute) Hypercapnic acidosis (Acute) Hypokalemia (Acute) Hypomagnesemia (Acute) Oxygen desaturation (Acute) Pneumonia (Acute) Pulmonary HTN (Acute) Cdiff colitis Hospital Course: 73 year old female presents with recurring diabetic R heel ulcer with drainage. Pt evaluated by podiatry and ID. Pt underwent excision and debridement. Received 4 days of iv antbx, transitioned to po levaquin to complete 7 day course. Pt developed macular erythematous rash on anterior chest and b/l lower extremities, suspect drug induced, vanco and zosyn was changed to clindamycin and Aztreonam, rash resolved. wbc count and ESR improved. MRI of RLE ruled out osteomyelitis. Advise avoiding pressure on wound and continue daily dressing w/ santyl, continue outpt f/u with Podiatry. Pt noted to be desatting to 80s on RA, mildly tachycardic, with productive cough , pulm consulted. suspect chronic hypoxia. PE ruled out. CTA revealed patchy consolidation and atelectasis. Pt received antibx coverage. Continue bronchodilators and O2 via NC. Repeat chest imaging in 1-2 months to assess resolution of findings. Pt evaluated by cardiology, no signs of acute chf. Pt reports frequent diarrhea, stool sent, cdiff antigen positive, toxin negative. Pt has not had diarrhea yesterday or today, active cdiff colitis less likely however will treat. Pt started on PO vancomycin.Case discussed with ID. Otherwise, pt in no acute distress, vitals stable, labs unremarkable, pt is medically stable for discharge to SNF. 35 minutes spent in discharge planning Condition: Stable - Instructions Diet, Activity, Other Instructions: resume activity/diet as tolerated PT levaquin x 2 more days vancomycin x 10 days Santyl to R heel ulcer daily O2 via NC repeat chest CT in 2 months f/u as recommended Referrals: Robert Rhodes MD [Staff Physician] - 1 Week Nathen Child MD [Staff Physician] - 1 Month Jarret Day MD [Staff Physician] - 1 Month Alirio Garcia MD [Primary Care Provider] - 1 Week Disposition: [facility]ARE HOME [facility]ILITY - Home Medications Comprehensive Discharge Medication List: Ambulatory Orders Levothyroxine [Synthroid -] 75 mcg PO DAILY 12/11/16 [place]-3 Fatty Acids/Fish Oil [Fish Oil 1,000 mg Softgel] 1 each PO DAILY Simvastatin 40 mg PO DAILY 12/11/16 Potassium Chloride [K-Dur -] 10 meq PO DAILY tab.ec 12/17/16 Aspirin [ASA -] 81 mg PO DAILY #1 tab.chew 03/05/17 Furosemide [Lasix -] 40 mg PO DAILY tablet 03/05/17 Multivitamins [Multivit ([facility] Formulary)] 1 tab PO DAILY tab 03/05/17 metFORMIN HCL [Glucophage -] 500 mg PO BID 05/25/18 Albuterol 2.5/Ipratropium 0.5 [Duoneb -] 1 amp NEB RTID amp 05/30/18 Collagenase Clostridium Hist. [Santyl -] 1 applic TP DAILY tube 05/30/18 Lactobacillus Acidophilus [Bacid -] 1 tab PO DAILY tab 05/30/18 Vancomycin Oral Solution 125 mg PO Q6HPO 10 Days ml 05/30/18 levoFLOXacin [Levaquin -] 500 mg PO DAILY@0600 2 Days tablet 05/30/18
[2018-05-30] MEDS: COLLAGENASE CLOSTRIDIUM HIST. 30 GRAMS TUBE TP SCH (12:47)
[2018-05-30 14:59] VITALS: BP 121/73; PULSE 86; TEMP 98.1
== END 2018-05-30 16:56 | DRG 622 ==
LOC: JER 14:50 → JERBED 17:10 → J4W 05-26 00:52 → J6S 05-27 19:03
PROVIDERS: ADMIT Internal Medicine; ATTEND Internal Medicine
PROC: 0JBQ0ZZ Excision of Right Foot Subcutaneous Tissue and Fascia, Open Approach (ICD-10-PCS; principal; 2018-05-24)
DX: E11.621 Type 2 diabetes mellitus with foot ulcer (principal); J96.22 Acute and chronic respiratory failure with hypercapnia; J96.21 Acute and chronic respiratory failure with hypoxia; L03.115 Cellulitis of right lower limb; Z68.42 Body mass index [BMI] 45.0-49.9, adult; I50.42 Chronic combined systolic (congestive) and diastolic (congestive) heart failure; E87.2 Acidosis; A04.72 Enterocolitis due to Clostridium difficile, not specified as recurrent; J98.11 Atelectasis; E66.01 Morbid (severe) obesity due to excess calories; B96.29 Other Escherichia coli [E. coli] as the cause of diseases classified elsewhere; B95.7 Other staphylococcus as the cause of diseases classified elsewhere; B96.89 Other specified bacterial agents as the cause of diseases classified elsewhere; E87.6 Hypokalemia; E83.42 Hypomagnesemia; L27.1 Localized skin eruption due to drugs and medicaments taken internally; T36.8X5A Adverse effect of other systemic antibiotics, initial encounter; T36.0X5A Adverse effect of penicillins, initial encounter; D64.9 Anemia, unspecified; J44.9 Chronic obstructive pulmonary disease, unspecified; G47.33 Obstructive sleep apnea (adult) (pediatric); E03.9 Hypothyroidism, unspecified; Z87.891 Personal history of nicotine dependence; M54.5 Low back pain; E78.5 Hyperlipidemia, unspecified; Z79.84 Long term (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 of oral hypoglycemic drugs; I27.20 Pulmonary hypertension, unspecified
CPT/HCPCS: 36415; 36600; 71045-TC-FY; 71275-TC; 73630-TC-RT-FY; 73718-TC; 80048; 80053; 82803; 82962; 83036; 83735; 84100; 85025; 85379; 85610; 85651; 86140; 87040; 87070; 87077; 87081; 87186; 87205; 87324; 87449; 93005; 93010; 93306-TC; 93970-TC; 94010; 94640; 94761; 97116-GP; 97161-GP; 99284-25

== ENCOUNTER 2018-07-16 11:47 | Emergency (ER) | payer OTHER, MEDICARE ==
[2018-07-16 11:54] VITALS: BP 114/64; PULSE 90; TEMP 98.7; BMI 50.3
[2018-07-16] MEDS ORDERED: ALBUTEROL SO4 2.5/IPRATROPIUM 0.5 INH SOL 3 ML VIAL.NEB. NEB ONE ×3 (12:41→13:54)
[2018-07-16] MEDS ORDERED: methylPREDNISolone NA SUCC 125 MG/2 ML VIAL IM ONE (12:42)
--- NOTE | 2018-07-16 13:08 | PDOC ---
History of Present Illness - General Chief Complaint: Cold Symptoms Stated Complaint: Respiratory Time Seen by Provider: 07/16/18 12:16 History Source: Patient Exam Limitations: Clinical Condition - History of Present Illness Initial Comments: 07/16/18 13:08 Patient with history of COPD, morbid obesity, Anemia, hypertension present sent in from a residential due to worsening cough. Patient reported one month history of persistent cough which she had multiple x-ray done and with no findings. Patient reported she was starting antibiotics one month ago but had to stop because she had ALLERGIC reaction. Patient was seen a month ago and chest CT shows possible infiltrate and was started on antibiotics by report she had to be stopped because of ALLERGIC reaction. On chart review, patient was discharged a month ago on Levaquin and vancomycin when she was diagnosed with possible pneumonia. Patient does not think her cough is getting worse by she was sent here by the nurse because she felt the cough is getting worse. Patient on home oxygen therapy for COPD at 3L.Patient is a former smoker for 20 years but has not smoked in over 30 years. Timing/Duration: getting worse, other (1 month) Past History - Past Medical History Allergies/Adverse Reactions: Allergies Allergy/AdvReac Type Severity Reaction Status Date / Time codeine [Codeine] Allergy Verified 07/16/18 11:54 shellfish derived Allergy Verified 07/16/18 11:54 tramadol AdvReac Mild Verified 07/16/18 11:54 Home Medications: Ambulatory Orders Levothyroxine [Synthroid -] 75 mcg PO DAILY 12/11/16 [place]-3 Fatty Acids/Fish Oil [Fish Oil 1,000 mg Softgel] 1 each PO DAILY Simvastatin 40 mg PO HS 12/11/16 Potassium Chloride [K-Dur -] 10 meq PO DAILY tab.ec 12/17/16 Aspirin [ASA -] 81 mg PO DAILY #1 tab.chew 03/05/17 Furosemide [Lasix -] 40 mg PO DAILY tablet 03/05/17 Multivitamins [Multivit ([facility] Formul[facility])] 1 tab PO DAILY tab 03/05/17 metFORMIN HCL [Glucophage -] 500 mg PO BID 05/25/18 Albuterol 2.5/Ipratropium 0.5 [Duoneb -] 1 amp NEB RTID amp 05/30/18 Lactobacillus Acidophilus [Bacid -] 1 tab PO DAILY tab 05/30/18 Acetaminophen [Tylenol] 325 mg PO ASDIR 07/16/18 Benzonatate [Tessalon Pearls -] 100 mg PO TID PRN #21 capsule 07/16/18 Bismuth Tribromoph/Petrolatum [Xeroform Petrolatum Dress] 1 each TP DAILY Insulin Sliding Scale [Novolog Vial Sliding Scale -] 0 units SQ TIDAC 07/16/18 Nystatin/Triamcinolone Top Cr [Mycolog II Cream -] 1 applic TP BID 07/16/18 Pantoprazole Sodium [Protonix] 40 mg PO HS #20 tablet. 07/16/18 Anemia: No COPD: No CHF: Yes Diabetes: Yes (IDDM) Disorders: Yes (kidney stones) HTN: Yes Hypercholesterolemia: Yes Thyroid Disease: Yes (hypo) - Surgical History Orthopedic Surgery: Yes (LT PARTIAL KNEE REPLACEMENT) - Immunization History Immunization Up to Date: Yes - Suicide/Smoking/Psychosocial Hx Smoking Status: No Smoking History: Former smoker Have you smoked in the past 12 months: No Number of Cigarettes Smoked Daily: 1 If you are a former smoker, when did you quit?: 1982 Information on smoking cessation initiated: No Hx Alcohol Use: No Drug/Substance Use Hx: No Substance Use Type: None Hx Substance Use Treatment: No Review of Systems - Review of Systems Able to Perform ROS?: Yes Is the patient limited Mauritian proficient: No Constitutional: No: See HPI, Fever, Malaise, Weakness HEENTM: No: Symptoms Reported, See HPI, Eye Pain, Blurred Vision, Tearing, Recent change in vision, Double Vision, Cataracts, Ear Pain, Ocular Prothesis, Ear Discharge, Nose Pain, Nose Congestion, Tinnitus, Nose Bleeding, Hearing Loss , Throat Pain, Throat Swelling, Mouth Pain, Dental Problems, Difficulty Swallowing, Mouth Swelling, Other Respiratory: Yes: See HPI, Cough. No: Orthopnea, Shortness of Breath, SOB with Exertion, SOB at Rest, Stridor, Wheezing, Productive cough, Hemoptysis Cardiac (ROS): No: Symptoms Reported, See HPI, Chest Pain, Edema, Irregular Heart Rate, Lightheadedness, Palpitations, Syncope, Chest Tightness, Other ABD/GI: No: Nausea, Vomiting, Abdominal cramping All Other Systems: Reviewed and Negative *Physical Exam - Vital Signs Last Vital Signs Temp Pulse Resp BP Pulse Ox 98.7 F 90 18 114/64 90 L 07/16/18 11:52 07/16/18 11:52 07/16/18 11:52 07/16/18 11:52 07/16/18 11:52 - Physical Exam Comments: 07/16/18 13:12 GENERAL: Well developed, well nourished. Awake and alert. morbid oebses in no acute distress. HEENT: Normocephalic, atraumatic. PERRLA, EOMI. No conjunctival pallor. Sclera are non-icteric. Moist mucous membranes. Oropharynx is clear. NECK: Supple. Full ROM. CARDIOVASCULAR: Regular rate and rhythm. No murmurs, rubs, or gallops. Distal pulses are 2+ and symmetric. PULMONARY: No evidence of respiratory distress. Lungs clear to auscultation bilaterally. No wheezing, rales or rhonchi. ABDOMINAL: Soft. Non-tender. Non-distended. No rebound or guarding. No organomegaly. Normoactive bowel sounds. MUSCULOSKELETAL Normal range of motion at all joints. EXTREMITIES: No cyanosis. No clubbing. No edema. No calf tenderness. SKIN: Warm and dry. Normal capillary refill. No rashes. No jaundice. NEUROLOGICAL: Alert, awake, appropriate. PSYCHIATRIC: Cooperative. Good eye contact. Appropriate mood General Appearance: Yes: Nourished, Appropriately Dressed. No: Apparent Distress Moderate Sedation - Procedure Monitoring Vital Signs: Procedure Monitoring Vital Signs Temperature 98.7 F 07/16/18 11:52 Pulse Rate 90 07/16/18 11:52 Respiratory Rate 18 07/16/18 11:52 Blood Pressure 114/64 07/16/18 11:52 O2 Sat by Pulse Oximetry (%) 90 L 07/16/18 11:52 ED Treatment Course - LABORATORY CBC & Chemistry Diagram: 07/16/18 13:20 07/16/18 14:40 Medical Decision Making - Medical Decision Making 07/16/18 13:13 Patient with a history of COPD on oxygen therapy, diabetes and hypertension sent in from residential due to worsening cough. Patient was diagnosed with possible pneumonia month ago and started on Levaquin and vancomycin antibiotics but had to be stopped due to ALLERGY reaction as per patient. Patient reported multiple x-ray done since last visit a month ago with no findings. Patient with low O2 sat of 90% in room air in no acute respiratory distress. Lungs clear to auscultation. Patient placed on oxygen therapy. CBC, CMP and cardiac profile ordered. Chest CT ordered to rule out any worsening infiltrate. Treat based on lab and imaging results. 07/16/18 17:43 CBC shows no elevated WBC. chest CT shows right lower lobe superior and babisilar infiltrates. Patient will be admitted for IV Abx. consult placed to medicine team for admission 07/16/18 17:47 07/16/18 19:01 Patient seen by medicine team and Dr. Ez Griggs who reported patient is well-known to him and patient does not need to be admitted due to patient being asymptomatic and imaging could be lagging from last pneumonia on CT a month ago. Patient with no elevated white cell count and no fevers and had no cough during course of ED visit. Medicine was patient to be discharged home on Tessalon Perles and protonics with pulmonology follow-up. Patient to continue home oxygen therapy for COPD. Patient up and eating with family. Patient well looking in no respiratory distress and is stable for discharge. Plan discussed with patient and patient agrees with plan. Patient with no cough during the course of ER visit. Patient O2 sat 90% which could be due to chronic COPD. 07/18/18 10:07 *DC/Admit/Observation/Transfer Diagnosis at time of Disposition: DM Diabetes mellitus, Oxygen desaturation COPD (chronic obstructive pulmonary disease) Qualifiers: COPD type: chronic bronchitis Chronic bronchitis type: unspecified Qualified Code(s): J42 - Unspecified chronic bronchitis Pneumonia Qualifiers: Pneumonia type: due to unspecified organism Laterality: bilateral Lung location : lower lobe of lung Qualified Code(s): J18.1 - Lobar pneumonia, unspecified organism - Discharge Dispostion Disposition: HOME Condition at time of disposition: Stable Decision to Admit order: No - Prescriptions Prescriptions: Benzonatate [Tessalon Pearls -] 100 mg PO TID PRN #21 capsule PRN Reason: Cough Pantoprazole Sodium [Protonix] 40 mg PO HS #20 tablet.dr - Referrals Referrals: Alex Duran MD [Primary Care Provider] - - Patient Instructions Printed Discharge Instructions: Chronic Obstructive Pulmonary Disease Additional Instructions: Take prescribed medication as needed for cough. Continue with home oxygen medication. Follow-up with heat treat technician. - Post Discharge Activity
[2018-07-16] MEDS ORDERED: methylPREDNISolone NA SUCC 125 MG/2 ML VIAL IVPUSH ONE (13:21)
[2018-07-16 13:32] LABS: BASO % 0.6 % (0-2.0); EOS % 1.2 % (0-4.5); HEMATOCRIT 27.4 % (32.4-45.2); HEMOGLOBIN 8.3 GM/dL (10.7-15.3); LYMPH % 11.7 % (8-40); MCH 25.2 pg (25.7-33.7); MCHC 30.4 g/dl (32.0-36.0); MONO % 5.4 % (3.8-10.2); NEUT % 81.1 % (42.8-82.8); PLATELET COUNT 294 K/MM3 (134-434); RDW 17.2 % (11.6-15.6)
[2018-07-16] MEDS ORDERED: methylPREDNISolone NA SUCC 125 MG/2 ML VIAL ONE (13:45)
[2018-07-16 16:16] LABS: ALK PHOS 88 U/L (45-117); ANION GAP 6 MMOL/L (8-16); BILIRUBIN,TOTAL 0.4 mg/dL (0.2-1); BLOOD UREA NITROGEN 22 mg/dL (7-18); CALCIUM 8.1 mg/dL (8.5-10.1); CHLORIDE 101 mmol/L (98-107); CO2 35 mmol/L (21-32); CREATININE 0.7 mg/dL (0.55-1.3); GLUCOSE,RANDOM 119 mg/dL (74-106); POTASSIUM 4.3 mmol/L (3.5-5.1); SGOT/AST 11 U/L (15-37); SGPT/ALT 12 U/L (13-61); SODIUM 142 mmol/L (136-145); TOT PROT 6.3 g/dl (6.4-8.2)
== END 2018-07-16 20:04 | disposition home or self-care (01) ==
LOC: JER 11:47
PROC: 3E0F7GC Introduction of Other Therapeutic Substance into Respiratory Tract, Via Natural or Artificial Opening (ICD-10-PCS; principal; 2018-07-16)
PROC: 3E033GC Introduction of Other Therapeutic Substance into Peripheral Vein, Percutaneous Approach (ICD-10-PCS; 2018-07-16)
DX: J42 Unspecified chronic bronchitis (principal); J18.1 Lobar pneumonia, unspecified organism; E11.9 Type 2 diabetes mellitus without complications; Z99.81 Dependence on supplemental oxygen; I10 Essential (primary) hypertension
CPT/HCPCS: 36415; 71250-TC; 80053; 82550; 84484; 85025; 99282-25

== ENCOUNTER 2018-08-13 19:07 | Inpatient (IN) | payer OTHER, MEDICARE ==
--- NOTE | 2018-08-13 19:42 | PDOC ---
History of Present Illness - General Chief Complaint: Injury Stated Complaint: FALL,LT LEG INJURY Time Seen by Provider: 08/13/18 19:41 - History of Present Illness Initial Comments: 73 year old female with PMH of CHF, chronic hypoxia (discharged on home O2 and nebs), pressure ulcers, NIDDM, and Morbid Obesity presenting with mechanical trip and fall at home when trying to transfer from the wheelchair to the the bed. Patient was just discharged from rehab after being sent there post admission for a right heel wound. During her hospital stay one month prior she was also treated for C. Diff and found to be chronically hypoxic with undefined lung pathology and discharged with home O2 and nebs but she is unaware of these orders so there is a possibility that there was a miscommunication. She states that she gained some weight in the intermediate but has been walking around without too much of an issue. She states that when the ambulate dropped her off at home in her wheelchair, she stood to transfer to her bed but then felt like her right leg was weak and she subsequently tripped over her foot. Her brother caught her and gently placed her on the floor but her legs folded behind her and she had immediate pain in her left hip, left knee, and right knee. Denies any deformity, skin changes, or other symptoms. 08/13/18 22:32 Past History - Past Medical History Allergies/Adverse Reactions: Allergies Allergy/AdvReac Type Severity Reaction Status Date / Time codeine [Codeine] Allergy Verified 08/13/18 19:37 shellfish derived Allergy Verified 08/13/18 19:37 tramadol AdvReac Mild Verified 08/13/18 19:37 Home Medications: Ambulatory Orders Levothyroxine [Synthroid -] 75 mcg PO DAILY 12/11/16 [place]-3 Fatty Acids/Fish Oil [Fish Oil 1,000 mg Softgel] 1 each PO DAILY Simvastatin 40 mg PO HS 12/11/16 Potassium Chloride [K-Dur -] 10 meq PO DAILY tab.ec 12/17/16 Aspirin [ASA -] 81 mg PO DAILY #1 tab.chew 03/05/17 Furosemide [Lasix -] 40 mg PO DAILY tablet 03/05/17 Multivitamins [Multivit ([facility] Formul[facility])] 1 tab PO DAILY tab 03/05/17 metFORMIN HCL [Glucophage -] 500 mg PO BID 05/25/18 Albuterol 2.5/Ipratropium 0.5 [Duoneb -] 1 amp NEB RTID amp 05/30/18 Lactobacillus Acidophilus [Bacid -] 1 tab PO DAILY tab 05/30/18 Acetaminophen [Tylenol] 325 mg PO ASDIR 07/16/18 Benzonatate [Tessalon Pearls -] 100 mg PO TID PRN #21 capsule 07/16/18 Bismuth Tribromoph/Petrolatum [Xeroform Petrolatum Dress] 1 each TP DAILY Insulin Sliding Scale [Novolog Vial Sliding Scale -] 0 units SQ TIDAC 07/16/18 Nystatin/Triamcinolone Top Cr [Mycolog II Cream -] 1 applic TP BID 07/16/18 Pantoprazole Sodium [Protonix] 40 mg PO HS #20 tablet. 07/16/18 Anemia: No COPD: No CHF: Yes Diabetes: Yes (IDDM) Disorders: Yes (kidney stones) HTN: Yes Hypercholesterolemia: Yes Thyroid Disease: Yes (hypo) - Surgical History Orthopedic Surgery: Yes (LT PARTIAL KNEE REPLACEMENT) - Immunization History Immunization Up to Date: Yes - Suicide/Smoking/Psychosocial Hx Smoking Status: No Smoking History: Never smoked Have you smoked in the past 12 months: No Number of Cigarettes Smoked Daily: 1 If you are a former smoker, when did you quit?: 1981 Information on smoking cessation initiated: No Hx Alcohol Use: No Drug/Substance Use Hx: No Substance Use Type: None Hx Substance Use Treatment: No Review of Systems - Review of Systems Constitutional: No: Chills, Diaphoresis, Fever HEENTM: No: Blurred Vision, Tearing Respiratory: No: Cough, Orthopnea, Shortness of Breath Cardiac (ROS): No: Chest Pain, Edema, Irregular Heart Rate ABD/GI: No: Diarrhea, Nausea : No: Dysuria, Discharge Musculoskeletal: Yes: Joint Pain, Joint Swelling, Muscle Weakness Integumentary: No: Lesions, Lumps Neurological: No: Headache, Numbness Hematologic/Lymphatic: No: Anemia, Blood Clots, Easy Bleeding *Physical Exam - Vital Signs Last Vital Signs Temp Pulse Resp BP Pulse Ox 97.6 F 82 18 113/60 97 08/13/18 19:37 08/13/18 19:37 08/13/18 19:37 08/13/18 19:37 08/13/18 19:37 - Physical Exam General Appearance: Yes: Nourished, Appropriately Dressed, Obese. No: Apparent Distress HEENT: positive: EOMI, NASH, Normal ENT Inspection, Normal Voice Neck: positive: Trachea midline, Normal Thyroid, Supple. negative: Tender, Rigid Respiratory/Chest: negative: Chest Tender, Lungs Clear, Normal Breath Sounds ( diminished breath sounds bilaterally), Respiratory Distress, Accessory Muscle Use Cardiovascular: positive: Regular Rhythm, Regular Rate Gastrointestinal/Abdominal: positive: Normal Bowel Sounds, Soft. negative: Tender, Flat (very large stomach) Musculoskeletal: positive: Decreased Range of Motion (per above). negative: Normal Inspection (pain over the left hip, left knee, and right knee. Slightly limited ROM in the left leg due to pain.) Extremity: positive: Normal Capillary Refill, Normal Inspection, Normal Range of Motion Integumentary: positive: Normal Color, Dry, Warm Neurologic: positive: Fully Oriented, Alert, Normal Mood/Affect, Normal Response , Motor Strength 5/5 Moderate Sedation - Procedure Monitoring Vital Signs: Procedure Monitoring Vital Signs Temperature 97.6 F 08/13/18 19:37 Pulse Rate 82 08/13/18 19:37 Respiratory Rate 18 08/13/18 19:37 Blood Pressure 113/60 08/13/18 19:37 O2 Sat by Pulse Oximetry (%) 97 08/13/18 19:37 ED Treatment Course - LABORATORY CBC & Chemistry Diagram: 08/13/18 20:54 08/13/18 20:54 Medical Decision Making - Medical Decision Making 73 year old stage 4 obese female with chronic hypoxia and prescription for home O2 presenting with left knee pain, left hip pain and right knee pain after a fall while trying to transfer from wheelchair to bed. Patient was unable to ambulate in our ED and was deemed a fall risk by our staff, myself, and the hospitalists. Her XRs do not evidence any obvious fracture. Will admit for further evaluation by medicine team for joint pains. Signed out to Dr. Case and Dr. Lance who were kind enough to to accept the patient. 08/14/18 01:58 *DC/Admit/Observation/Transfer Diagnosis at time of Disposition: Left hip pain Fall Qualifiers: Encounter type: initial encounter Qualified Code(s): W19.XXXA - Unspecified fall, initial encounter Left knee pain Qualifiers: Chronicity: acute Qualified Code(s): M25.562 - Pain in left knee Right knee pain Qualifiers: Chronicity: acute Qualified Code(s): M25.561 - Pain in right knee - Discharge Dispostion Condition at time of disposition: Stable Decision to Admit order: Yes - Referrals - Patient Instructions - Post Discharge Activity
[2018-08-13 22:00] LABS: BASO % 0.6 % (0-2.0); EOS % 0.9 % (0-4.5); HEMATOCRIT 28.1 % (32.4-45.2); HEMOGLOBIN 8.5 GM/dL (10.7-15.3); MCH 23.7 pg (25.7-33.7); MCHC 30.1 g/dl (32.0-36.0); MEAN CELL VOLUME 78.7 fl (80-96); MEAN PLT VOLUME 8.8 fl (7.5-11.1); MONO % 5.2 % (3.8-10.2); NEUT % 85.3 % (42.8-82.8); PLATELET COUNT 222 K/MM3 (134-434); RBC 3.57 M/mm3 (3.60-5.2); RDW 18.7 % (11.6-15.6); WHITE BLOOD COUNT 9.3 K/mm3 (4.0-10.0)
--- NOTE | 2018-08-13 22:17 | PDOC ---
Attending Attestation - Resident Resident Name: Marge Draper - ED Attending Attestation I have performed the following: I have examined & evaluated the patient, The case was reviewed & discussed with the resident, I agree w/resident's findings & plan, Exceptions are as noted - HPI HPI: 08/13/18 22:10 73 yo F h/o htn dm, HLD, chronic leg infections, suspected copd or lung disease with chronic hypoxia, chf, here after just getting home from rehab today fall trying to transfer from wheelchair to bed. right hip folded under her. now c/ o severe left hip pain and knee pain. states she did not lose consciousness, or hit her head. her family member at her side was able to ease her to floor to reduce the impact. no other complaints. states she does not have oxygen at home. - Physicial Exam PE: 08/13/18 22:16 awake alert head atraumatic, bilat lungs decreased at bases, right > left. heart rrr no mrg abd soft nt nd.e xt wwp bilat nonpitting edema. 2 + dp/ pt pulses. nuero alert oriented x 3. - Medical Decision Making 08/13/18 22:17 73 yo F mult med problems chf, lung disease with chronic hypoxia suspected, obesity, hypothyroid here s/p fall , first day after dc from nursing facility. differential fracture. muscle strain. hypoxia possible from pneumonia, chf, effusion, recently evaluated for PE 06/10 for similar hypoxia was negative. plan cxr duonebs. ekg labs bnp trop duonebs cxr xray hips and knees. cxr shows bilat edema, fluid in fissure lines. will admit pt will require pt/ assessment, assessment for home Oxygen, and diuresis, duonebs. 08/14/18 01:04 pt xray negative for fracture bilat knee and left hip. pt cxr with fluid fissure line, mild congsteion. will admit for pt reassessment, diuresisis, and assessment for oxygen. Heart Score/ECG Review #1 General ECG Interpretation: Sinus Rhythm, Normal Rate (82), Normal Intervals, No acute ischemic changes
[2018-08-13 22:19] LABS: INR 1.07 (0.83-1.09); PROTHROMBIN TIME (PATIENT) 12.6 SEC (9.7-13.0)
[2018-08-13] MEDS ORDERED: ALBUTEROL SO4 2.5/IPRATROPIUM 0.5 INH SOL 3 ML VIAL.NEB. NEB ONE ×2 (22:22→22:31)
[2018-08-13 22:37] LABS: ALBUMIN 2.7 g/dl (3.4-5.0); ALK PHOS 98 U/L (45-117); ANION GAP 7 MMOL/L (8-16); BILIRUBIN,TOTAL 0.4 mg/dL (0.2-1); BLOOD UREA NITROGEN 29 mg/dL (7-18); CALCIUM 7.5 mg/dL (8.5-10.1); CHLORIDE 99 mmol/L (98-107); CO2 35 mmol/L (21-32); CREATININE 0.7 mg/dL (0.55-1.3); GLUCOSE,RANDOM 131 mg/dL (74-106); N-TERMINAL BNP 3797.8 pg/ml (5-125); POTASSIUM 4.3 mmol/L (3.5-5.1); SGOT/AST 11 U/L (15-37); SGPT/ALT 14 U/L (13-61); SODIUM 141 mmol/L (136-145); TOT PROT 5.8 g/dl (6.4-8.2)
[2018-08-14] MEDS ORDERED: ACETAMINOPHEN 1000 MG/100 ML VIAL (NON FORMULARY) IVPB ONE (00:48)
[2018-08-14] MEDS ORDERED: ACETAMINOPHEN INJECTION 100 ML IVPB ONE (00:49)
[2018-08-14] MEDS ORDERED: FUROSEMIDE 40 MG/4 ML INJECTABLE VIAL IVPUSH ONE (01:05)
[2018-08-14] MEDS ORDERED: FUROSEMIDE 40 MG/4 ML INJECTABLE VIAL ONE (01:34)
--- NOTE | 2018-08-14 02:56 | HP ---
CHIEF COMPLAINT:s/p fall PCP:Dr. Garcia HISTORY OF PRESENT ILLNESS: Patient is a 73 year old female with past medical history of diastolic CHF, HLD , NIDDM, morbid obesity, hypothyroidism and COPD (O2-dependent), presented to the ED with bilateral lower leg pain and left hip pain after a fall. Patient was admitted 2 months ago for Right foot cellulitis and underwent excision and debridement. She was sent to [facility] to continue with rehab. As per patient, she would walk about 30 feet daily. Yesterday, she was discharged from [facility] on a wheelchair. At home, as patient was trying to transfer from the wheelchair to the bed, she lost her balance and fell down on the floor, on a sitting position with her legs folded behind her. She denies any head trauma or LOC. Patient could not stand up on her own and had to call 911. Patient reports bilateral lower leg pain and left hip pain. ER course was notable for: (1)IV Tylenol, IV lasix 40mg, Duonebs (2)Hip/Pelvis xray - no fracture (3) Recent Travel:denies PAST MEDICAL HISTORY: diastolic CHF HTN HLD NIDDM morbid obesity hypothyroidism COPD PAST SURGICAL HISTORY: Joint Replacement (left knee partial replacement) Lithotripsy for renal calculus Social History: Smoking:previous smoker, quit >30 years ago Alcohol:denies Drugs: denies Lives with brother Family History: Allergies codeine [Codeine] Allergy (Verified 08/13/18 19:37) shellfish derived Allergy (Verified 08/13/18 19:37) tramadol Adverse Reaction (Mild, Verified 08/13/18 19:37) lethargic HOME MEDICATIONS: Home Medications Medication Instructions Recorded Levothyroxine [Synthroid -] 75 mcg PO DAILY 12/11/16 [place]-3 Fatty Acids/Fish Oil [Fish 1 each PO DAILY 12/11/16 Oil 1,000 mg Softgel] Simvastatin 40 mg PO HS 12/11/16 Potassium Chloride [K-Dur -] 10 meq PO DAILY tab.ec 12/17/16 Aspirin [ASA -] 81 mg PO DAILY #1 tab.chew 03/05/17 Furosemide [Lasix -] 40 mg PO DAILY tablet 03/05/17 Multivitamins [Multivit ([facility] 1 tab PO DAILY tab 03/05/17 Formulary)] metFORMIN HCL [Glucophage -] 500 mg PO BID 05/25/18 Albuterol 2.5/Ipratropium 0.5 1 amp NEB RTID amp 05/30/18 [Duoneb -] Acetaminophen [Tylenol] 325 mg PO ASDIR 07/16/18 Nystatin/Triamcinolone Top Cr 1 applic TP BID 07/16/18 [Mycolog II Cream -] REVIEW OF SYSTEMS CONSTITUTIONAL: Absent: fever, chills, diaphoresis, generalized weakness, malaise, loss of appetite, weight change HEENT: Absent: rhinorrhea, nasal congestion, throat pain, throat swelling, difficulty swallowing, mouth swelling, ear pain, eye pain, visual changes CARDIOVASCULAR: Absent: chest pain, syncope, palpitations, irregular heart rate, lightheadedness , peripheral edema RESPIRATORY: Absent: cough, shortness of breath, dyspnea with exertion, orthopnea, wheezing, stridor, hemoptysis GASTROINTESTINAL: Absent: abdominal pain, abdominal distension, nausea, vomiting, diarrhea, constipation, melena, hematochezia GENITOURINARY: Absent: dysuria, frequency, urgency, hesitancy, hematuria, flank pain, genital pain MUSCULOSKELETAL: bilateral leg pain Absent: myalgia, arthralgia, joint swelling, back pain, neck pain SKIN: Absent: rash, itching, pallor HEMATOLOGIC/IMMUNOLOGIC: Absent: easy bleeding, easy bruising, lymphadenopathy, frequent infections ENDOCRINE: Absent: unexplained weight gain, unexplained weight loss, heat intolerance, cold intolerance NEUROLOGIC: Absent: headache, focal weakness or paresthesias, dizziness, unsteady gait, seizure, mental status changes, bladder or bowel incontinence PSYCHIATRIC: Absent: anxiety, depression, suicidal or homicidal ideation, hallucinations. PHYSICAL EXAMINATION Vital Signs - 24 hr 08/13/18 08/14/18 19:37 01:31 Temperature 97.6 F Pulse Rate 82 Pulse Rate [ 82 Right Radial] Respiratory 18 20 Rate Blood Pressure 113/60 Blood Pressure 123/73 [Right Arm] O2 Sat by Pulse 97 92 L Oximetry (%) GENERAL: Awake, alert, and fully oriented, on 4L NC HEAD: Normal with no signs of trauma. EYES:PERRLA, EOMI, sclera anicteric, conjunctiva clear. EARS, NOSE, THROAT: Ears normal, oropharynx clear without exudates. Moist mucous membranes. NECK: Normal range of motion, supple without lymphadenopathy. LUNGS: Breath sounds equal, clear to auscultation bilaterally. HEART: Regular rate and rhythm, normal S1 and S2 without murmur, rub or gallop. ABDOMEN: Soft, obese, nontender, not distended, normoactive bowel sounds. UPPER EXTREMITIES: 2+ pulses, warm, well-perfused. No peripheral edema. LOWER EXTREMITIES: 2+ pulses, warm, well-perfused. +2 b/l pitting edema. Limited ROM b/l LE due to pain. +Erythema with no tenderness, no warmth on right lower leg NEUROLOGICAL: Cranial nerves II-XII intact. Motor strength 5/5, sensation intact. Normal speech. Gait not observed PSYCHIATRIC: Cooperative. Good eye contact. Appropriate mood and affect. SKIN: Warm, dry, normal turgor. Laboratory Results - last 24 hr 08/13/18 08/13/18 08/13/18 20:54 20:54 20:54 WBC 9.3 RBC 3.57 L Hgb 8.5 L Hct 28.1 L MCV 78.7 L MCH 23.7 L MCHC 30.1 L RDW 18.7 H Plt Count 222 D MPV 8.8 Absolute Neuts (auto) 8.0 Neutrophils % 85.3 H Lymphocytes % 8.0 D Monocytes % 5.2 Eosinophils % 0.9 Basophils % 0.6 Nucleated RBC % 0 PT with INR 12.60 INR 1.07 Sodium 141 Potassium 4.3 Chloride 99 Carbon Dioxide 35 H Anion Gap 7 L BUN 29 H Creatinine 0.7 Creat Clearance w eGFR > 60 Random Glucose 131 H Calcium 7.5 L Total Bilirubin 0.4 AST 11 L ALT 14 Alkaline Phosphatase 98 Troponin I 0.03 B-Natriuretic Peptide 3797.8 H Total Protein 5.8 L Albumin 2.7 L ASSESSMENT/PLAN: Patient is a 73 year old female with past medical history of diastolic CHF, HLD , NIDDM, morbid obesity, hypothyroidism and COPD (O2-dependent), presented to the ED with bilateral lower leg pain and left hip pain after a fall. #s/p Mechanical fall -Pelvis/hip xray showed no signs of fracture -Physical therapy evaluation -pain control #Diastolic CHF -CXR revealed mild congestion -IV Lasix 40mg given at the ED -Will continue PO Lasix 40mg daily #HLD -Continue simvastatin #NIDDM -Will hold home metformin -Insulin sliding scale implemented -BGM ACHS #Hypothyroidism -Continue synthroid #COPD -Continue home Duonebs RTID -Continue oxygen at 4L NC -Pre and post assessment prior to discharge #FEN -Not on any standing fluids -Electrolytes wnl, routine bmp monitoring -diabetic/sodium restricted diet #Prophylaxis -Lovenox 40mg sq daily #Disposition -full code -med-surg Visit type - Emergency Visit Emergency Visit: Yes ED Registration Date: 08/13/18 Care time: The patient presented to the Emergency Department on the above date and was hospitalized for further evaluation of their emergent condition. - New Patient This patient is new to me today: Yes Date on this admission: 08/14/18 - Critical Care Critical Care patient: No
--- NOTE | 2018-08-14 04:15 | PN ---
Teaching Attending Note Name of Resident: Marilee Zuniga ATTENDING PHYSICIAN STATEMENT I saw and evaluated the patient. I reviewed the resident's note and discussed the case with the resident. I agree with the resident's findings and plan as documented. SUBJECTIVE: Seen and examined; please refer to resident documentation for fruther histoirical information. Ramiro, this is a 73 y/o female presenting after a fall. She was discharged from rehab and slid out of her chair onto her knees and couldn't get up. She said she can't walk and nursing was unable to ambulate her in the ER. Initial XR's negative for trauma per ER read. She is on intermittent O2 at home and while she does have an elevated BNP her symptoms arent worse than they are at baseline and she was not brought here for cardiopulmonary complaints (and she has none), only the fall. She already has home O2. She does not want to go home as she cannot walk due to knee pain radiating up the leg to the hip (L>R side). No syncopal/presyncopal/neuro sx. She is hemodynamically stable and afebrile. She was seen by Dr. Day here in 2018 for similar concerns; echo was done 05/26 with normal EF and RVSP of 68. Dr. Lind's not mentions that she has chronic diastolic CHF and pulmonary HTN with only mild to moderate pulmonary HTN and that her hypoxia on RA may be due to suboptimal depth of inspiration. She was seen by Dr. Child as well at that time; he recommended ruling out PE ( which was done) as well as repeating bronchodilators and repeating chest imaging several months later (no significant changes on the repeat CT done 07/15) . She was discharged with O2 via NC and PO lasix. 10 sys ROS done and negative aside from HPI PMH, PSH, Family hx, Social hx reviewed Medication reconciliation pending OBJECTIVE: VS, labs, imaging reviewed NAD, AAO, resting comfortably in bed RRR s1/2 no mgr NT ND +BS Pain b/l to varus/valgus stress, negative lachmans, pain to palpation over L- greater trochanter. ASSESSMENT AND PLAN: Patient presents to the ER with inability to walk after fall; negative XRs. Was just DCd from rehab. 1) Inability to Walk/Knee Pain -She states the pain limits her ability to ambulate. Only got 1g APAP so far. Can do PRN Lortab for a day and ambulate with PT and consider ortho consult in the morning. -Checking b/l knee plain films. Is s/p knee replacement -She has stairs at home, etc. This may present a problem to her given her ongoing health issues. Consult case management. 2) Chronic Hypoxia -No real change in sx from her baseline; noted prior CV and pulmonary input. Continue with PRN O2. Given concern of not breathing deeply in the past will place on incentive spirometry. I am less suspicious of PNA given the fact she is afebrile without a white count. Patient does have elevated BNP but it has been higher than this in the past, she is morbidly obese, and she has a known RVSP of 68. Risks for PE but given no real sx and no change from baseline can likely hold off CTA. Continue O2 via NC and monitor fluid status. Will continue her home dose of lasix. She completed course of levaquin ~2 months ago for suspected PNA 3) HTN -Continue home meds 4) HLD -Continue statin 5) History of pulm HTN/Chronic Diastolic CHF -Continue home medications, monitor Is and Os. She got an additional dose of lasix in ER; will observe and continue her baseline diuretics as she has several reasons to have elevated BNP (obesity, etc.) 6) Morbid Obesity -[employer] when clinically appropriate 7) Likely LUCIUS -Needs sleep study 8) Elevated CO2 -Chronic; continue to monitor. Would be useful to check ABG on RA at some point to r/o honey 9) Low albumin -Trend; consider prealbumin. Calcium level noted. Consider nutrition consult at some point. Full Code
[2018-08-14] MEDS ORDERED: IBUPROFEN 400 MG TABLET (FP) PO ONE (04:20)
[2018-08-14] MEDS ORDERED: INSULIN (NOVOLOG) ASPART 100 UNITS/ML 10ML VIAL ONE ×2 (06:06→22:08)
[2018-08-14] MEDS: LEVOTHYROXINE NA 75 MCG TABLET (FP) PO SCH (06:07)
[2018-08-14] MEDS: INSULIN SLIDING SCALE (NOVOLOG) 1 VIAL SQ SCH ×4 (06:07→22:27)
[2018-08-14 07:28] LABS: BASO % 0.3 % (0-2.0); EOS % 1.3 % (0-4.5); HEMATOCRIT 26.9 % (32.4-45.2); HEMOGLOBIN 8.1 GM/dL (10.7-15.3); LYMPH % 8.7 % (8-40); MCH 23.4 pg (25.7-33.7); MCHC 30.3 g/dl (32.0-36.0); MEAN CELL VOLUME 77.1 fl (80-96); MEAN PLT VOLUME 8.6 fl (7.5-11.1); MONO % 8.1 % (3.8-10.2); NEUT % 81.6 % (42.8-82.8); PLATELET COUNT 301 K/MM3 (134-434); RBC 3.49 M/mm3 (3.60-5.2); RDW 18.8 % (11.6-15.6); WHITE BLOOD COUNT 8.6 K/mm3 (4.0-10.0)
[2018-08-14 07:54] LABS: ANION GAP 5 MMOL/L (8-16); BLOOD UREA NITROGEN 30 mg/dL (7-18); CALCIUM 7.8 mg/dL (8.5-10.1); CHLORIDE 98 mmol/L (98-107); CO2 37 mmol/L (21-32); CREATININE 0.8 mg/dL (0.55-1.3); GLUCOSE,RANDOM 150 mg/dL (74-106); MAGNESIUM 1.7 mg/dL (1.8-2.4); PHOSPHOROUS 3.2 mg/dL (2.5-4.9); POTASSIUM 3.9 mmol/L (3.5-5.1); SODIUM 140 mmol/L (136-145)
[2018-08-14] MEDS: ALBUTEROL SO4 2.5/IPRATROPIUM 0.5 INH SOL 3 ML VIAL.NEB. NEB SCH ×3 (08:30→20:35)
[2018-08-14] MEDS ORDERED: HEPARIN NA (PORCINE) 5,000 UNITS/ML 1ML VIAL SQ SCH (10:00)
[2018-08-14] MEDS: ENOXAPARIN NA (PORCINE) 40 MG/0.4 ML DISP.SYRIN SQ SCH (10:40)
[2018-08-14] MEDS: OMEGA-3 ACID ETHYL ESTERS (FATTY-ACIDS) 1 GM CAPSULE (FP) PO SCH ×2 (10:41→22:15)
[2018-08-14] MEDS: POTASSIUM CHLORIDE TABS 10 MEQ TABLET.ER (FP) PO SCH (10:41)
[2018-08-14] MEDS: FUROSEMIDE 40 MG TABLET (FP) PO SCH (10:42)
[2018-08-14] MEDS: ASPIRIN 81 MG CHEWABLE TABLETS PO SCH (10:42)
[2018-08-14] MEDS: MULTIVITAMINS (DAILY MVI) TABLET (FP) PO SCH (10:42)
[2018-08-14] MEDS: NYSTATIN/TRIAMCINOLONE TOPICAL CREAM 15 GM TUBE TP SCH ×3 (10:43→22:16)
--- NOTE | 2018-08-14 11:53 | EKG ---
Test Reason : Blood Pressure : / mmHG Vent. Rate : 082 BPM Atrial Rate : 082 BPM P-R Int : 164 ms QRS Dur : 080 ms QT Int : 382 ms P-R-T Axes : 060 -24 063 degrees QTc Int : 446 ms NORMAL SINUS RHYTHM NORMAL ECG WHEN COMPARED WITH ECG OF 24-MAY-2018 16:30, NO SIGNIFICANT CHANGE WAS FOUND Confirmed by HAWK MOHAMUD MD ([id number]) on 08/14/2018 11:53:24 AM Referred By: Confirmed By:HAWK MOHAMUD MD
--- NOTE | 2018-08-14 11:56 | PN ---
Physical Exam: SUBJECTIVE: Patient seen and examined pt states that she was dc from [facility] yesterday and in her home when she tried to move from her wheel cahir to bed she had pain in her ankle and then sat down on her knees. Her brother was with her and he was unable to pick her up so they called ambulance. No new events overnight states her breathing is at base line states she was able to walk 22-30 feet in [facility]. reports pain in right : xray done report awaited. pt was eating her breakfast without difficulty in morning OBJECTIVE: Vital Signs Period Temp Pulse Resp BP Sys/Donohue Pulse Ox Last 24 Hr 97.6 F-98.3 F 79-84 18-20 113-133/40-73 90-97 GENERAL: The patient is awake, alert, and fully oriented, in no acute distress. on nasal canula 4L base line HEAD: Normal with no signs of trauma. ENT: , moist mucous membranes. NECK: Trachea midline, full range of motion, supple. LUNGS: Breath sounds equal, clear to auscultation bilaterally, no wheezes, no crackles, no accessory muscle use. on nasal canula 4 l HEART: Regular rate and rhythm, S1, S2 ABDOMEN: Soft, nontender, nondistended, normoactive bowel sounds, no guarding, no rebound, obese EXTREMITIES: warm, well-perfused,dependent edema ++ NEUROLOGICAL: Normal speech, gait not observed. PSYCH: Normal mood, normal affect. SKIN: Warm, dry, Laboratory Results - last 24 hr 08/13/18 08/13/18 08/13/18 20:54 20:54 20:54 WBC 9.3 RBC 3.57 L Hgb 8.5 L Hct 28.1 L MCV 78.7 L MCH 23.7 L MCHC 30.1 L RDW 18.7 H Plt Count 222 D MPV 8.8 Absolute Neuts (auto) 8.0 Neutrophils % 85.3 H Lymphocytes % 8.0 D Monocytes % 5.2 Eosinophils % 0.9 Basophils % 0.6 Nucleated RBC % 0 PT with INR 12.60 INR 1.07 Sodium 141 Potassium 4.3 Chloride 99 Carbon Dioxide 35 H Anion Gap 7 L BUN 29 H Creatinine 0.7 Creat Clearance w eGFR > 60 POC Glucometer Random Glucose 131 H Calcium 7.5 L Phosphorus Magnesium Total Bilirubin 0.4 AST 11 L ALT 14 Alkaline Phosphatase 98 Troponin I 0.03 B-Natriuretic Peptide 3797.8 H Total Protein 5.8 L Albumin 2.7 L 08/14/18 08/14/18 08/14/18 05:58 06:50 06:50 WBC 8.6 RBC 3.49 L Hgb 8.1 L Hct 26.9 L MCV 77.1 L MCH 23.4 L MCHC 30.3 L RDW 18.8 H Plt Count 301 D MPV 8.6 Absolute Neuts (auto) 7.1 Neutrophils % 81.6 Lymphocytes % 8.7 Monocytes % 8.1 Eosinophils % 1.3 Basophils % 0.3 Nucleated RBC % 0 PT with INR INR Sodium 140 Potassium 3.9 Chloride 98 Carbon Dioxide 37 H Anion Gap 5 L BUN 30 H Creatinine 0.8 Creat Clearance w eGFR > 60 POC Glucometer 155 Random Glucose 150 H Calcium 7.8 L Phosphorus 3.2 Magnesium 1.7 L Total Bilirubin AST ALT Alkaline Phosphatase Troponin I B-Natriuretic Peptide Total Protein Albumin 08/14/18 11:35 WBC RBC Hgb Hct MCV MCH MCHC RDW Plt Count MPV Absolute Neuts (auto) Neutrophils % Lymphocytes % Monocytes % Eosinophils % Basophils % Nucleated RBC % PT with INR INR Sodium Potassium Chloride Carbon Dioxide Anion Gap BUN Creatinine Creat Clearance w eGFR POC Glucometer 135 Random Glucose Calcium Phosphorus Magnesium Total Bilirubin AST ALT Alkaline Phosphatase Troponin I B-Natriuretic Peptide Total Protein Albumin Active Medications Generic Name Dose Route Start Last Admin Trade Name Freq PRN Reason Stop Dose Admin Acetaminophen 650 mg 08/14/18 02:28 Tylenol - PO Q6H PRN Fever Or Pain Albuterol/Ipratropium 1 amp 08/14/18 08:00 08/14/18 08:30 Duoneb - NEB 1 amp RTID LISA Administration Aspirin 81 mg 08/14/18 10:00 08/14/18 10:42 Asa - PO 81 mg DAILY LISA Administration Atorvastatin Calcium 20 mg 08/14/18 22:00 Lipitor - PO HS LISA Enoxaparin Sodium 40 mg 08/14/18 10:00 08/14/18 10:40 Lovenox - SQ 40 mg DAILY LISA Administration Furosemide 40 mg 08/14/18 10:00 08/14/18 10:42 Lasix - PO 40 mg DAILY LISA Administration Insulin Aspart 1 vial 08/14/18 07:00 08/14/18 11:40 Novolog Vial Sliding Scale - SQ Not Given ACHS [facility] Protocol Levothyroxine Sodium 75 mcg 08/14/18 07:00 08/14/18 06:07 Synthroid - PO 75 mcg DAILY@0700 LISA Administration Multivitamins/Minerals/Vitamin C 1 tab 08/14/18 10:00 08/14/18 10:42 Tab-A-Vit - PO 1 tab DAILY LISA Administration Nystatin/Triamcinolone Acetonide 1 applic 08/14/18 10:00 08/14/18 10:43 Mycolog Ii Cream - TP 1 applic BID LISA Administration Dpxgi-2-Qefw Ethyl Esters 2 gm 08/14/18 10:00 08/14/18 10:41 Lovaza - PO 2 gm BID LISA Administration Potassium Chloride 10 meq 08/14/18 10:00 08/14/18 10:41 K-Dur - PO 10 meq DAILY LISA Administration ASSESSMENT/PLAN: Patient is a 73 year old female with past medical history of diastolic CHF, HLD , NIDDM, morbid obesity, hypothyroidism and COPD (O2-dependent), presented to the ED with bilateral lower leg pain and left hip pain after a fall. #s/p Mechanical fall -Pelvis/hip xray showed no signs of fracture -Physical therapy evaluation -pain control #Diastolic CHF continue home lasix of 40 mg daily low salt and cholestrol diet. daily weight. aspirin k dur 10po daily #HLD -Continue lipitor 20 #NIDDM -Will hold home metformin -Insulin sliding scale implemented -BGM ACHS #Hypothyroidism -Continue synthroid 75mcg daily # Microcytic anemia Hb stable from last admissions. workup can be done out pt will start her on ferrous sulphate on dc #COPD -Continue home Duonebs RTID -Continue oxygen at 4L NC -Pre and post assessment prior to discharge #FEN -orally allowed -Electrolytes wnl, routine bmp monitoring -diabetic/sodium restricted diet #Prophylaxis -Lovenox 40mg sq daily #Disposition -full code -med-surg Visit type - Emergency Visit Emergency Visit: Yes ED Registration Date: 08/13/18 Care time: The patient presented to the Emergency Department on the above date and was hospitalized for further evaluation of their emergent condition. - New Patient This patient is new to me today: Yes Date on this admission: 08/14/18 - Critical Care Critical Care patient: No
[2018-08-14] MEDS: ACETAMINOPHEN 325 MG TABLET (FP) PO PRN (13:28)
[2018-08-14] MEDS ORDERED: MAGNESIUM OXIDE 400 MG TABLET (FP) PO ONE (14:00)
--- NOTE | 2018-08-14 14:55 | PN ---
Teaching Attending Note Name of Resident: Michel Alcantar ATTENDING PHYSICIAN STATEMENT I saw and evaluated the patient. I reviewed the resident's note and discussed the case with the resident. I agree with the resident's findings and plan as documented. SUBJECTIVE: Ms Vázquez complains of pain in her R ankle after her fall yesterday. Denies cp, sob, n/v. OBJECTIVE: Last Vital Signs Temp Pulse Resp BP Pulse Ox 36.8 C 79 20 116/40 L 92 L 08/14/18 09:12 08/14/18 09:12 08/14/18 09:12 08/14/18 09:12 08/14/18 10:13 Gen: nad, morbidly obese Pulm: ctab w/o w/r/r CV: rrr w/o m/r/g Abd: +bs, s/nt/nd Ext: edema with chronic discoloration and skin thickening CBC, BMP 08/14/18 06:50 08/14/18 06:50 ASSESSMENT AND PLAN: -patient s/p fall after discharge from SNF on same day -obtain ankle x-ray since with pain to evaluate if had fracture -continue home regimen -PT consult -may need further time at SNF for rehab -SW aware
[2018-08-14] MEDS: ATORVASTATIN CA 20 MG TABLET (FP) PO SCH (22:15)
[2018-08-15] MEDS: INSULIN SLIDING SCALE (NOVOLOG) 1 VIAL SQ SCH ×4 (06:09→21:26)
[2018-08-15] MEDS: LEVOTHYROXINE NA 75 MCG TABLET (FP) PO SCH (06:09)
[2018-08-15 07:41] LABS: HEMATOCRIT 26.7 % (32.4-45.2); MCH 23.2 pg (25.7-33.7); MCHC 29.8 g/dl (32.0-36.0); MEAN CELL VOLUME 77.6 fl (80-96); MEAN PLT VOLUME 8.5 fl (7.5-11.1); PLATELET COUNT 306 K/MM3 (134-434); RBC 3.44 M/mm3 (3.60-5.2); RDW 19.2 % (11.6-15.6); WHITE BLOOD COUNT 6.9 K/mm3 (4.0-10.0)
[2018-08-15] MEDS: ALBUTEROL SO4 2.5/IPRATROPIUM 0.5 INH SOL 3 ML VIAL.NEB. NEB SCH ×3 (08:03→21:36)
[2018-08-15 08:40] LABS: ANION GAP 6 MMOL/L (8-16); BLOOD UREA NITROGEN 25 mg/dL (7-18); CALCIUM 7.7 mg/dL (8.5-10.1); CHLORIDE 97 mmol/L (98-107); CO2 35 mmol/L (21-32); CREATININE 0.7 mg/dL (0.55-1.3); GLUCOSE,RANDOM 161 mg/dL (74-106); POTASSIUM 4.2 mmol/L (3.5-5.1); SODIUM 138 mmol/L (136-145)
[2018-08-15] MEDS: OMEGA-3 ACID ETHYL ESTERS (FATTY-ACIDS) 1 GM CAPSULE (FP) PO SCH ×2 (10:06→21:25)
[2018-08-15] MEDS: ENOXAPARIN NA (PORCINE) 40 MG/0.4 ML DISP.SYRIN SQ SCH (10:07)
[2018-08-15] MEDS: POTASSIUM CHLORIDE TABS 10 MEQ TABLET.ER (FP) PO SCH (10:07)
[2018-08-15] MEDS: ACETAMINOPHEN 325 MG TABLET (FP) PO PRN ×2 (10:07→19:41)
[2018-08-15] MEDS: FUROSEMIDE 40 MG TABLET (FP) PO SCH (10:07)
[2018-08-15] MEDS: NYSTATIN/TRIAMCINOLONE TOPICAL CREAM 15 GM TUBE TP SCH ×2 (10:07→21:27)
[2018-08-15] MEDS: MULTIVITAMINS (DAILY MVI) TABLET (FP) PO SCH (10:07)
[2018-08-15] MEDS: ASPIRIN 81 MG CHEWABLE TABLETS PO SCH (10:07)
[2018-08-15] MEDS ORDERED: INSULIN (NOVOLOG) ASPART 100 UNITS/ML 10ML VIAL ONE ×2 (11:30→16:29)
--- NOTE | 2018-08-15 14:14 | PN ---
Teaching Attending Note Name of Resident: Michel Alcantar ATTENDING PHYSICIAN STATEMENT I saw and evaluated the patient. I reviewed the resident's note and discussed the case with the resident. I agree with the resident's findings and plan as documented. SUBJECTIVE: Ms Vázquez complains of being unable to stand on her own. Says she was having some shortness of breath earlier but is now improved. Complains of severe BLE swelling. Denies cp or n/v. States gained 30 lbs in 2 weeks at [facility]. OBJECTIVE: Last Vital Signs Temp Pulse Resp BP Pulse Ox 36.6 C 78 20 133/66 93 L 08/15/18 09:39 08/15/18 09:39 08/15/18 09:39 08/15/18 09:39 08/15/18 02:00 Gen: nad, morbidly obese Pulm: bibasilar dior CV: rrr w/o m/r/g Abd: +bs, s/nt/nd Ext 3+ BLE edema CBC, BMP 08/15/18 06:00 08/15/18 06:00 ASSESSMENT AND PLAN: -change to inpatient today -patient with hypoxia and fluid overload -will start on IV lasix 40mg daily -place shook for strict I/Os -daily weights -cardiology consult -oxygen requirement increased to 4L today -continue current management and PT -will need SNF placement Problem List - Problems (1) Acute on chronic respiratory failure with hypoxia and hypercapnia Code(s): J96.21 - ACUTE AND CHRONIC RESPIRATORY FAILURE WITH HYPOXIA; J96.22 - ACUTE AND CHRONIC RESPIRATORY FAILURE WITH HYPERCAPNIA (2) Fall Code(s): W19.XXXA - UNSPECIFIED FALL, INITIAL ENCOUNTER Qualifiers: Encounter type: initial encounter Qualified Code(s): W19.XXXA - Unspecified fall, initial encounter (3) CHF (congestive heart failure) Code(s): I50.9 - HEART FAILURE, UNSPECIFIED Qualifiers: Heart failure type: diastolic Heart failure chronicity: acute on chronic Qualified Code(s): I50.33 - Acute on chronic diastolic (congestive) heart failure (4) COPD (chronic obstructive pulmonary disease) Code(s): J44.9 - CHRONIC OBSTRUCTIVE PULMONARY DISEASE, UNSPECIFIED Qualifiers: COPD type: chronic bronchitis Chronic bronchitis type: unspecified Qualified Code(s): J42 - Unspecified chronic bronchitis (5) Diabetes Code(s): E11.9 - TYPE 2 DIABETES MELLITUS WITHOUT COMPLICATIONS Qualifiers: Diabetes mellitus type: type 2 Diabetes mellitus prison insulin use: without prison use Diabetes mellitus complication status: with skin complications Diabetes mellitus complication detail: with foot ulcer Qualified Code(s): E11.621 - Type 2 diabetes mellitus with foot ulcer; L97.509 - Non-pressure chronic ulcer of other part of unspecified foot with unspecified severity (6) HLD (hyperlipidemia) Code(s): E78.5 - HYPERLIPIDEMIA, UNSPECIFIED (7) HTN (hypertension) Code(s): I10 - ESSENTIAL (PRIMARY) HYPERTENSION (8) Hypothyroid Code(s): E03.9 - HYPOTHYROIDISM, UNSPECIFIED (9) Morbid obesity Code(s): E66.01 - MORBID (SEVERE) OBESITY DUE TO EXCESS CALORIES (10) Pulmonary HTN Code(s): I27.20 - PULMONARY HYPERTENSION, UNSPECIFIED
[2018-08-15] MEDS ORDERED: FUROSEMIDE 40 MG/4 ML INJECTABLE VIAL IVPUSH SCH (14:45)
--- NOTE | 2018-08-15 14:47 | PN ---
Physical Exam: SUBJECTIVE: Patient seen and examined non new issues overnight using 4L of oxygen complains of swelling in leg. states she has gained lot of weight in shelter and her swelling in legs has also increased. OBJECTIVE: Vital Signs Period Temp Pulse Resp BP Sys/Donohue Pulse Ox Last 24 Hr 97.6 F-98.9 F 78-91 20-20 112-133/65-75 92-93 GENERAL: The patient is awake, alert, and fully oriented, in no acute distress. on nasal canula 4L base line HEAD: Normal with no signs of trauma. ENT: , moist mucous membranes. NECK: Trachea midline, full range of motion, supple. LUNGS: Breath sounds equal, clear to auscultation bilaterally, no wheezes, no crackles, no accessory muscle use. on nasal canula 4 l HEART: Regular rate and rhythm, S1, S2 ABDOMEN: Soft, nontender, nondistended, normoactive bowel sounds, no guarding, no rebound, obese EXTREMITIES: warm, well-perfused,dependent edema ++ NEUROLOGICAL: Normal speech, gait not observed. PSYCH: Normal mood, normal affect. SKIN: Warm, dry, Laboratory Results - last 24 hr 08/14/18 08/14/18 08/15/18 16:56 22:13 06:00 WBC 6.9 RBC 3.44 L Hgb 8.0 L Hct 26.7 L MCV 77.6 L MCH 23.2 L MCHC 29.8 L RDW 19.2 H Plt Count 306 MPV 8.5 Sodium Potassium Chloride Carbon Dioxide Anion Gap BUN Creatinine Creat Clearance w eGFR POC Glucometer 184 166 Random Glucose Calcium 08/15/18 08/15/18 08/15/18 06:00 06:07 11:24 WBC RBC Hgb Hct MCV MCH MCHC RDW Plt Count MPV Sodium 138 Potassium 4.2 Chloride 97 L Carbon Dioxide 35 H Anion Gap 6 L BUN 25 H Creatinine 0.7 Creat Clearance w eGFR > 60 POC Glucometer 162 169 Random Glucose 161 H Calcium 7.7 L Active Medications Generic Name Dose Route Start Last Admin Trade Name Freq PRN Reason Stop Dose Admin Acetaminophen 650 mg 08/14/18 02:28 08/15/18 10:07 Tylenol - PO 650 mg Q6H PRN Administration Fever Or Pain Albuterol/Ipratropium 1 amp 08/14/18 08:00 08/15/18 13:49 Duoneb - NEB 1 amp RTID LISA Administration Aspirin 81 mg 08/14/18 10:00 08/15/18 10:07 Asa - PO 81 mg DAILY LISA Administration Atorvastatin Calcium 20 mg 08/14/18 22:00 08/14/18 22:15 Lipitor - PO 20 mg HS LISA Administration Enoxaparin Sodium 40 mg 08/14/18 10:00 08/15/18 10:07 Lovenox - SQ 40 mg DAILY LISA Administration Furosemide 40 mg 08/15/18 14:45 Lasix Injection - IVPUSH DAILY [facility] Insulin Aspart 1 vial 08/14/18 07:00 08/15/18 11:30 Novolog Vial Sliding Scale - SQ 2 units ACHS LISA Administration Protocol Levothyroxine Sodium 75 mcg 08/14/18 07:00 08/15/18 06:09 Synthroid - PO 75 mcg DAILY@0700 LISA Administration Multivitamins/Minerals/Vitamin C 1 tab 08/14/18 10:00 08/15/18 10:07 Tab-A-Vit - PO 1 tab DAILY LISA Administration Nystatin/Triamcinolone Acetonide 1 applic 08/14/18 10:00 08/15/18 10:07 Mycolog Ii Cream - TP 1 applic BID LISA Administration [id number] Ethyl Esters 2 gm 08/14/18 10:00 08/15/18 10:06 Lovaza - PO 2 gm BID LISA Administration Potassium Chloride 10 meq 08/14/18 10:00 08/15/18 10:07 K-Dur - PO 10 meq DAILY LISA Administration ASSESSMENT/PLAN:Patient is a 73 year old female with past medical history of diastolic CHF, HLD, NIDDM, morbid obesity, hypothyroidism and COPD (O2-dependent ), presented to the ED with bilateral lower leg pain and left hip pain after a fall. #s/p Mechanical fall -Pelvis/hip xray showed no signs of fracture -Physical therapy evaluation -pain control #Diastolic CHF IV lasix 40mg bid low salt and cholestrol diet. daily weight. aspirin k dur 10po daily #HLD -Continue lipitor 20 #NIDDM -Will hold home metformin -Insulin sliding scale implemented -BGM ACHS #Hypothyroidism -Continue synthroid 75mcg daily # Microcytic anemia Hb stable from last admissions. workup can be done out pt will start her on ferrous sulphate on dc #COPD -Continue home Duonebs RTID -Continue oxygen at 4L NC -Pre and post assessment prior to discharge #FEN -orally allowed -Electrolytes wnl, routine bmp monitoring -diabetic/sodium restricted diet #Prophylaxis -Lovenox 40mg sq daily #Disposition -full code -med-surg Visit type - Emergency Visit Emergency Visit: Yes ED Registration Date: 08/13/18 Care time: The patient presented to the Emergency Department on the above date and was hospitalized for further evaluation of their emergent condition. - New Patient This patient is new to me today: No - Critical Care Critical Care patient: No
--- NOTE | 2018-08-15 15:37 | CON.CARD ---
Cardiology Consult (text) - Consultation Consultation Note: Chief Complaint: edema History of Present Illness: 73 yo female p/w fall and edema, dyspnea. Has hx COPD with 2L nasal canula O2 at home. She fell prior to admission from losing balance, no loss of consciousness. No cp, sob, palps, dizzy, loc, pnd, orthopnea. not sure if her edema is changed from usual, since last discharge weight 251 lbs now 308 lbs. Was on lasix 40 mg daily prior. PMH: obesity chronic diastolic chf HTN COPD - Past Medical History Cardio/Vascular: Yes: CHF, HTN Pulmonary: Yes: COPD, Sleep Apnea Renal/: Yes: Renal Calculi (s/p lithotripsy) Musculoskeletal: Yes: Chronic low back pain Endocrine: Yes: Diabetes Mellitus, Hypothyroidism, Other (morbid obesity) - Past Surgical History Past Surgical History: Yes: Joint Replacement (left knee (partial replacement)) - Alcohol/Substance Use Hx Alcohol Use: No History of Substance Use: reports: None - Smoking History Smoking history: Former smoker Have you smoked in the past 12 months: No Aproximately how many cigarettes per day: 1 If you are a former smoker, when did you quit?: 1981 - Social History ADL: Independent 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 History of Recent Travel: No Home Medications - Allergies Allergies/Adverse Reactions: Allergies Allergy/AdvReac Type Severity Reaction Status Date / Time codeine [Codeine] Allergy Verified 08/13/18 19:37 shellfish derived Allergy Verified 08/13/18 19:37 tramadol AdvReac Mild Verified 08/13/18 19:37 Ambulatory Orders Levothyroxine [Synthroid -] 75 mcg PO DAILY 12/11/16 [place]-3 Fatty Acids/Fish Oil [Fish Oil 1,000 mg Softgel] 1 each PO DAILY Simvastatin 40 mg PO HS 12/11/16 Potassium Chloride [K-Dur -] 10 meq PO DAILY tab.ec 12/17/16 Aspirin [ASA -] 81 mg PO DAILY #1 tab.chew 03/05/17 Furosemide [Lasix -] 40 mg PO DAILY tablet 03/05/17 Multivitamins [Multivit ([facility] Formulary)] 1 tab PO DAILY tab 03/05/17 metFORMIN HCL [Glucophage -] 500 mg PO BID 05/25/18 Albuterol 2.5/Ipratropium 0.5 [Duoneb -] 1 amp NEB RTID amp 05/30/18 Acetaminophen [Tylenol] 325 mg PO ASDIR 07/16/18 Nystatin/Triamcinolone Top Cr [Mycolog II Cream -] 1 applic TP BID 07/16/18 Family Disease History - Family Disease History Family Disease History: Heart Disease: Mother, CA: Father (colon) ros: per hpi; no cough, nvd, wt loss, reyes, vision changes, muscle aches, nasal congestion Vital Signs Period Temp Pulse Resp BP Sys/Donohue Pulse Ox Last 24 Hr 97.9 F-98.9 F 78-87 20-20 112-133/66-75 92-93 calm, nad no icterus/xanthelasma no JVD no carotid bruit RRR, decr intensity (habitus), no murmur/gallop; PMI not palpable abdomen very obese, TDS for masses/pulsation--none appreciated; nontender; not distended + normal BS 2+ le edema bilat pretib A and O x3, normal affect not agitated pos dp pt no carotid bruits no jaundice diaphoresis - Other Data Laboratory Last Values WBC 6.9 K/mm3 (4.0-10.0) 08/15/18 06:00 RBC 3.44 M/mm3 (3.60-5.2) L 08/15/18 06:00 Hgb 8.0 GM/dL (10.7-15.3) L 08/15/18 06:00 Hct 26.7 % (32.4-45.2) L 08/15/18 06:00 MCV 77.6 fl (80-96) L 08/15/18 06:00 MCH 23.2 pg (25.7-33.7) L 08/15/18 06:00 MCHC 29.8 g/dl (32.0-36.0) L 08/15/18 06:00 RDW 19.2 % (11.6-15.6) H 08/15/18 06:00 Plt Count 306 K/MM3 (134-434) 08/15/18 06:00 MPV 8.5 fl (7.5-11.1) 08/15/18 06:00 Absolute Neuts (auto) 7.1 K/mm3 (1.5-8.0) 08/14/18 06:50 Neutrophils % 81.6 % (42.8-82.8) 08/14/18 06:50 Lymphocytes % 8.7 % (8-40) 08/14/18 06:50 Monocytes % 8.1 % (3.8-10.2) 08/14/18 06:50 Eosinophils % 1.3 % (0-4.5) 08/14/18 06:50 Basophils % 0.3 % (0-2.0) 08/14/18 06:50 Nucleated RBC % 0 % (0-0) 08/14/18 06:50 PT with INR 12.60 SEC (9.7-13.0) 08/13/18 20:54 INR 1.07 (0.83-1.09) 08/13/18 20:54 Sodium 138 mmol/L (136-145) 08/15/18 06:00 Potassium 4.2 mmol/L (3.5-5.1) 08/15/18 06:00 Chloride 97 mmol/L (98-107) L 08/15/18 06:00 Carbon Dioxide 35 mmol/L (21-32) H 08/15/18 06:00 Anion Gap 6 MMOL/L (8-16) L 08/15/18 06:00 BUN 25 mg/dL (7-18) H 08/15/18 06:00 Creatinine 0.7 mg/dL (0.55-1.3) 08/15/18 06:00 Creat Clearance w eGFR > 60 (>60) 08/15/18 06:00 POC Glucometer 169 UNITS (80-120) 08/15/18 11:24 Random Glucose 161 mg/dL (74-106) H 08/15/18 06:00 Calcium 7.7 mg/dL (8.5-10.1) L 08/15/18 06:00 Phosphorus 3.2 mg/dL (2.5-4.9) 08/14/18 06:50 Magnesium 1.7 mg/dL (1.8-2.4) L 08/14/18 06:50 Total Bilirubin 0.4 mg/dL (0.2-1) 08/13/18 20:54 AST 11 U/L (15-37) L 08/13/18 20:54 ALT 14 U/L (13-61) 08/13/18 20:54 Alkaline Phosphatase 98 U/L (45-117) 08/13/18 20:54 Troponin I 0.03 ng/ml (0.00-0.05) 08/13/18 20:54 B-Natriuretic Peptide 3797.8 pg/ml (5-125) H 08/13/18 20:54 Total Protein 5.8 g/dl (6.4-8.2) L 08/13/18 20:54 Albumin 2.7 g/dl (3.4-5.0) L 08/13/18 20:54 ecg: sr, nl intervals, no ischemic changes CXR: no sig chf Echo 10/2016: tds; low nl lvef, nl rv, mild lae, mod tr, rvsp 40-50 Echo 02/2016: suboptimal. grossly nl lv size. Mild-mod LV dysfunction. RV not well seen. Mild ARLYN. Mod TR. RVSP 40-50. Small effusion < 1 cm. stress MPI 06/08: no ischemic EKG changes. nl perfusion. EF 45%, global. echo 05/2018 tds, mod TR, LV grossly nl size/function, RVSP 68 mmHg CTA chest: patchy consolidations/atelectasis. no PE Assessment/Plan 73 yo female here with non healing foot wound, redness of le's. acute on chronic diast chf, pulm HTN (WHO 2?): - preserved LVEF (11/07 echo) with no signif valve dysfunction and only mild-mod pulm HTN then - admitted with edema, hypoxia and weight gain - received IV lasix - continue lasix 40 mg IV BID - monitor daily weights, Cr, lytes, I/O with diuresis HTN - bp overall controlled, stable - cont current mgmt HLD - con't home statin regimen
[2018-08-15] MEDS: FUROSEMIDE 40 MG/4 ML INJECTABLE VIAL IVPUSH SCH (16:49)
[2018-08-15] MEDS: ATORVASTATIN CA 20 MG TABLET (FP) PO SCH (21:25)
[2018-08-16] MEDS: ACETAMINOPHEN 325 MG TABLET (FP) PO PRN (02:38)
[2018-08-16] MEDS: INSULIN SLIDING SCALE (NOVOLOG) 1 VIAL SQ SCH ×4 (06:39→21:39)
[2018-08-16] MEDS: FUROSEMIDE 40 MG/4 ML INJECTABLE VIAL IVPUSH SCH ×2 (06:39→13:44)
[2018-08-16] MEDS: LEVOTHYROXINE NA 75 MCG TABLET (FP) PO SCH (06:39)
[2018-08-16] MEDS: ALBUTEROL SO4 2.5/IPRATROPIUM 0.5 INH SOL 3 ML VIAL.NEB. NEB SCH ×3 (07:30→21:00)
[2018-08-16] MEDS: NYSTATIN/TRIAMCINOLONE TOPICAL CREAM 15 GM TUBE TP SCH ×2 (09:51→21:38)
[2018-08-16] MEDS: ENOXAPARIN NA (PORCINE) 40 MG/0.4 ML DISP.SYRIN SQ SCH (09:51)
[2018-08-16] MEDS: OMEGA-3 ACID ETHYL ESTERS (FATTY-ACIDS) 1 GM CAPSULE (FP) PO SCH ×2 (09:52→21:38)
[2018-08-16] MEDS: MULTIVITAMINS (DAILY MVI) TABLET (FP) PO SCH (09:52)
[2018-08-16] MEDS: ASPIRIN 81 MG CHEWABLE TABLETS PO SCH (09:52)
[2018-08-16] MEDS: POTASSIUM CHLORIDE TABS 10 MEQ TABLET.ER (FP) PO SCH (09:54)
[2018-08-16] MEDS ORDERED: INSULIN (NOVOLOG) ASPART 100 UNITS/ML 10ML VIAL ONE ×3 (11:30→21:21)
--- NOTE | 2018-08-16 12:05 | PN ---
Progress Note (short form) - Note Progress Note: s: edema stable. no sob, palps, dizziness Current Medications Acetaminophen (Tylenol -) 650 mg PO Q6H PRN PRN Reason: Fever Or Pain Last Admin: 08/16/18 02:38 Dose: 650 mg Albuterol/Ipratropium (Duoneb -) 1 amp NEB RTID [facility] Last Admin: 08/16/18 07:30 Dose: 1 amp Aspirin (Asa -) 81 mg PO DAILY [facility] Last Admin: 08/16/18 09:52 Dose: 81 mg Atorvastatin Calcium (Lipitor -) 20 mg PO HS [facility] Last Admin: 08/15/18 21:25 Dose: 20 mg Enoxaparin Sodium (Lovenox -) 40 mg SQ DAILY [facility] Last Admin: 08/16/18 09:51 Dose: 40 mg Furosemide (Lasix Injection -) 40 mg IVPUSH BIDLASIX [facility] Last Admin: 08/16/18 06:39 Dose: 40 mg Insulin Aspart (Novolog Vial Sliding Scale -) 1 vial SQ ACHS [facility]; Protocol Last Admin: 08/16/18 11:38 Dose: 2 units Levothyroxine Sodium (Synthroid -) 75 mcg PO DAILY@0700 [facility] Last Admin: 08/16/18 06:39 Dose: 75 mcg Multivitamins/Minerals/Vitamin C (Tab-A-Vit -) 1 tab PO DAILY [facility] Last Admin: 08/16/18 09:52 Dose: 1 tab Nystatin/Triamcinolone Acetonide (Mycolog Ii Cream -) 1 applic TP BID [facility] Last Admin: 08/16/18 09:51 Dose: 1 applic [id number] Ethyl Esters (Lovaza -) 2 gm PO BID [facility] Last Admin: 08/16/18 09:52 Dose: 2 gm Potassium Chloride (K-Dur -) 10 meq PO DAILY [facility] Last Admin: 08/16/18 09:54 Dose: 10 meq Vital Signs Vital Signs Period Temp Pulse Resp BP Sys/Donohue Pulse Ox Last 24 Hr 97.7 F-98.3 F 80-90 20-24 112-127/58-76 92-93 calm, nad no icterus/xanthelasma no JVD no carotid bruit RRR, decr intensity (habitus), no murmur/gallop; PMI not palpable abdomen very obese, TDS for masses/pulsation--none appreciated; nontender; not distended + normal BS 2+ le edema bilat pretib A and O x3, normal affect not agitated pos dp pt no carotid bruits no jaundice diaphoresis ecg: sr, nl intervals, no ischemic changes CXR: no sig chf Echo 10/2016: tds; low nl lvef, nl rv, mild lae, mod tr, rvsp 40-50 Echo 02/2016: suboptimal. grossly nl lv size. Mild-mod LV dysfunction. RV not well seen. Mild ARLYN. Mod TR. RVSP 40-50. Small effusion < 1 cm. stress MPI 06/08: no ischemic EKG changes. nl perfusion. EF 45%, global. echo 05/2018 tds, mod TR, LV grossly nl size/function, RVSP 68 mmHg CTA chest: patchy consolidations/atelectasis. no PE Assessment/Plan 73 yo female here with non healing foot wound, redness of le's. acute on chronic diast chf, pulm HTN (WHO 2?): - preserved LVEF (11/07 echo) with no signif valve dysfunction and only mild-mod pulm HTN then - admitted with edema, hypoxia and weight gain - received IV lasix - on lasix 40 mg IV BID - net neg 500 cc, however was drinking a lot yesterday ( multiple water bottles at bedside) - fluid restriction discussed with patient - if Cr stable would increase lasix to 80 mg IV BID - monitor daily weights, Cr, lytes, I/O with diuresis HTN - bp overall controlled, stable - cont current mgmt HLD - con't home statin regimen
[2018-08-16 13:25] LABS: ANION GAP 1 MMOL/L (8-16); BLOOD UREA NITROGEN 21 mg/dL (7-18); CALCIUM 7.6 mg/dL (8.5-10.1); CHLORIDE 96 mmol/L (98-107); CO2 43 mmol/L (21-32); CREATININE 0.8 mg/dL (0.55-1.3); GLUCOSE,RANDOM 200 mg/dL (74-106); MAGNESIUM 1.7 mg/dL (1.8-2.4); PHOSPHOROUS 3.9 mg/dL (2.5-4.9); POTASSIUM 3.9 mmol/L (3.5-5.1); SODIUM 140 mmol/L (136-145)
--- NOTE | 2018-08-16 16:18 | PN ---
Progress Note, Physician Chief Complaint: Ms Vázquez says she is urinating with the lasix. Denies cp, sob, n/v. - Current Medication List Current Medications: Active Medications Acetaminophen (Tylenol -) 650 mg PO Q6H PRN PRN Reason: Fever Or Pain Last Admin: 08/16/18 02:38 Dose: 650 mg Albuterol/Ipratropium (Duoneb -) 1 amp NEB RTID [facility] Last Admin: 08/16/18 14:31 Dose: 1 amp Aspirin (Asa -) 81 mg PO DAILY [facility] Last Admin: 08/16/18 09:52 Dose: 81 mg Atorvastatin Calcium (Lipitor -) 20 mg PO HS [facility] Last Admin: 08/15/18 21:25 Dose: 20 mg Enoxaparin Sodium (Lovenox -) 40 mg SQ DAILY [facility] Last Admin: 08/16/18 09:51 Dose: 40 mg Furosemide (Lasix Injection -) 40 mg IVPUSH BIDLASIX [facility] Last Admin: 08/16/18 13:44 Dose: 40 mg Insulin Aspart (Novolog Vial Sliding Scale -) 1 vial SQ ACHS [facility]; Protocol Last Admin: 08/16/18 11:38 Dose: 2 units Levothyroxine Sodium (Synthroid -) 75 mcg PO DAILY@0700 [facility] Last Admin: 08/16/18 06:39 Dose: 75 mcg Multivitamins/Minerals/Vitamin C (Tab-A-Vit -) 1 tab PO DAILY [facility] Last Admin: 08/16/18 09:52 Dose: 1 tab Nystatin/Triamcinolone Acetonide (Mycolog Ii Cream -) 1 applic TP BID [facility] Last Admin: 08/16/18 09:51 Dose: 1 applic [id number] Ethyl Esters (Lovaza -) 2 gm PO BID [facility] Last Admin: 08/16/18 09:52 Dose: 2 gm Potassium Chloride (K-Dur -) 10 meq PO DAILY [facility] Last Admin: 08/16/18 09:54 Dose: 10 meq - Objective Vital Signs: Vital Signs Temperature 36.7 C 08/16/18 09:00 Pulse Rate 90 08/16/18 09:00 Respiratory Rate 20 08/16/18 09:00 Blood Pressure 116/59 L 08/16/18 09:00 O2 Sat by Pulse Oximetry (%) 93 L 08/16/18 09:00 Constitutional: Yes: No Distress, Calm, Obese Cardiovascular: Yes: Regular Rate and Rhythm. No: Gallop, Murmur, Rub Respiratory: Yes: Regular, CTA Bilaterally. No: Rales, Rhonchi, Wheezes Gastrointestinal: Yes: Normal Bowel Sounds, Soft. No: Distention, Tenderness Extremities: Yes: WNL Edema: Yes Edema: LLE: 3+, RLE: 3+ Labs: CBC, BMP 08/15/18 06:00 08/16/18 12:35 INR, PTT INR 1.07 (0.83-1.09) 08/13/18 20:54 Problem List - Problems (1) Acute on chronic respiratory failure with hypoxia and hypercapnia Code(s): J96.21 - ACUTE AND CHRONIC RESPIRATORY FAILURE WITH HYPOXIA; J96.22 - ACUTE AND CHRONIC RESPIRATORY FAILURE WITH HYPERCAPNIA (2) Fall Code(s): W19.XXXA - UNSPECIFIED FALL, INITIAL ENCOUNTER Qualifiers: Encounter type: initial encounter Qualified Code(s): W19.XXXA - Unspecified fall, initial encounter (3) CHF (congestive heart failure) Code(s): I50.9 - HEART FAILURE, UNSPECIFIED Qualifiers: Heart failure type: diastolic Heart failure chronicity: acute on chronic Qualified Code(s): I50.33 - Acute on chronic diastolic (congestive) heart failure (4) COPD (chronic obstructive pulmonary disease) Code(s): J44.9 - CHRONIC OBSTRUCTIVE PULMONARY DISEASE, UNSPECIFIED Qualifiers: COPD type: chronic bronchitis Chronic bronchitis type: unspecified Qualified Code(s): J42 - Unspecified chronic bronchitis (5) Diabetes Code(s): E11.9 - TYPE 2 DIABETES MELLITUS WITHOUT COMPLICATIONS Qualifiers: Diabetes mellitus type: type 2 Diabetes mellitus terminal gauger insulin use: without halfway use Diabetes mellitus complication status: with skin complications Diabetes mellitus complication detail: with foot ulcer Qualified Code(s): E11.621 - Type 2 diabetes mellitus with foot ulcer; L97.509 - Non-pressure chronic ulcer of other part of unspecified foot with unspecified severity (6) HLD (hyperlipidemia) Code(s): E78.5 - HYPERLIPIDEMIA, UNSPECIFIED (7) HTN (hypertension) Code(s): I10 - ESSENTIAL (PRIMARY) HYPERTENSION (8) Hypothyroid Code(s): E03.9 - HYPOTHYROIDISM, UNSPECIFIED (9) Morbid obesity Code(s): E66.01 - MORBID (SEVERE) OBESITY DUE TO EXCESS CALORIES (10) Pulmonary HTN Code(s): I27.20 - PULMONARY HYPERTENSION, UNSPECIFIED Assessment/Plan -case d/w Dr Agarwal -continue lasix 40mg IV bid -will place on 1L fluid restriction -continue current management -will need SNF placement on discharge
[2018-08-16] MEDS: ATORVASTATIN CA 20 MG TABLET (FP) PO SCH (21:38)
[2018-08-16] MEDS ORDERED: KETOROLAC TROMETHAMINE 10 MG TABLET PO ONE (22:22)
[2018-08-17] MEDS: LEVOTHYROXINE NA 75 MCG TABLET (FP) PO SCH (06:02)
[2018-08-17] MEDS: INSULIN SLIDING SCALE (NOVOLOG) 1 VIAL SQ SCH ×4 (06:02→21:33)
[2018-08-17] MEDS: FUROSEMIDE 40 MG/4 ML INJECTABLE VIAL IVPUSH SCH ×2 (06:02→13:46)
[2018-08-17] MEDS: ALBUTEROL SO4 2.5/IPRATROPIUM 0.5 INH SOL 3 ML VIAL.NEB. NEB SCH ×3 (07:30→20:55)
[2018-08-17 08:26] LABS: BASO % 0.4 % (0-2.0); EOS % 3.6 % (0-4.5); HEMATOCRIT 26.6 % (32.4-45.2); MCH 23.3 pg (25.7-33.7); MCHC 30.2 g/dl (32.0-36.0); MEAN CELL VOLUME 77.2 fl (80-96); MEAN PLT VOLUME 8.8 fl (7.5-11.1); MONO % 6.8 % (3.8-10.2); NEUT % 76.2 % (42.8-82.8); PLATELET COUNT 276 K/MM3 (134-434); RBC 3.45 M/mm3 (3.60-5.2); RDW 18.7 % (11.6-15.6); WHITE BLOOD COUNT 6.5 K/mm3 (4.0-10.0)
[2018-08-17 09:00] LABS: ANION GAP 5 MMOL/L (8-16); BLOOD UREA NITROGEN 23 mg/dL (7-18); CALCIUM 7.4 mg/dL (8.5-10.1); CHLORIDE 96 mmol/L (98-107); CO2 40 mmol/L (21-32); CREATININE 0.9 mg/dL (0.55-1.3); GLUCOSE,RANDOM 151 mg/dL (74-106); MAGNESIUM 1.8 mg/dL (1.8-2.4); PHOSPHOROUS 4.4 mg/dL (2.5-4.9); POTASSIUM 3.9 mmol/L (3.5-5.1); SODIUM 141 mmol/L (136-145)
[2018-08-17] MEDS: ASPIRIN 81 MG CHEWABLE TABLETS PO SCH (10:12)
[2018-08-17] MEDS: ENOXAPARIN NA (PORCINE) 40 MG/0.4 ML DISP.SYRIN SQ SCH (10:12)
[2018-08-17] MEDS: MULTIVITAMINS (DAILY MVI) TABLET (FP) PO SCH (10:12)
[2018-08-17] MEDS: NYSTATIN/TRIAMCINOLONE TOPICAL CREAM 15 GM TUBE TP SCH ×2 (10:12→21:34)
[2018-08-17] MEDS: POTASSIUM CHLORIDE TABS 10 MEQ TABLET.ER (FP) PO SCH (10:12)
[2018-08-17] MEDS: OMEGA-3 ACID ETHYL ESTERS (FATTY-ACIDS) 1 GM CAPSULE (FP) PO SCH ×2 (10:12→21:33)
--- NOTE | 2018-08-17 10:35 | PN ---
Progress Note, Physician Chief Complaint: Ms Vázquez says she is urinating but does not note any decrease in swelling. Denies cp, sob, n/v. - Current Medication List Current Medications: Active Medications Acetaminophen (Tylenol -) 650 mg PO Q6H PRN PRN Reason: Fever Or Pain Last Admin: 08/16/18 02:38 Dose: 650 mg Albuterol/Ipratropium (Duoneb -) 1 amp NEB RTID [facility] Last Admin: 08/17/18 07:30 Dose: 1 amp Aspirin (Asa -) 81 mg PO DAILY [facility] Last Admin: 08/17/18 10:12 Dose: 81 mg Atorvastatin Calcium (Lipitor -) 20 mg PO HS [facility] Last Admin: 08/16/18 21:38 Dose: 20 mg Enoxaparin Sodium (Lovenox -) 40 mg SQ DAILY [facility] Last Admin: 08/17/18 10:12 Dose: 40 mg Furosemide (Lasix Injection -) 40 mg IVPUSH BIDLASIX [facility] Last Admin: 08/17/18 06:02 Dose: 40 mg Insulin Aspart (Novolog Vial Sliding Scale -) 1 vial SQ ACHS [facility]; Protocol Last Admin: 08/17/18 06:02 Dose: 2 units Levothyroxine Sodium (Synthroid -) 75 mcg PO DAILY@0700 [facility] Last Admin: 08/17/18 06:02 Dose: 75 mcg Multivitamins/Minerals/Vitamin C (Tab-A-Vit -) 1 tab PO DAILY [facility] Last Admin: 08/17/18 10:12 Dose: 1 tab Nystatin/Triamcinolone Acetonide (Mycolog Ii Cream -) 1 applic TP BID [facility] Last Admin: 08/17/18 10:12 Dose: 1 applic [id number]-7-[id number] Ethyl Esters (Lovaza -) 2 gm PO BID [facility] Last Admin: 08/17/18 10:12 Dose: 2 gm Potassium Chloride (K-Dur -) 10 meq PO DAILY [facility] Last Admin: 08/17/18 10:12 Dose: 10 meq - Objective Vital Signs: Vital Signs Temperature 36.8 C 08/17/18 02:00 Pulse Rate 88 08/17/18 02:00 Respiratory Rate 20 08/17/18 02:00 Blood Pressure 132/69 08/17/18 02:00 O2 Sat by Pulse Oximetry (%) 95 08/16/18 21:00 Constitutional: Yes: No Distress, Calm, Obese Cardiovascular: Yes: Regular Rate and Rhythm. No: Gallop, Murmur, Rub Respiratory: Yes: Regular, CTA Bilaterally. No: Rales, Rhonchi, Wheezes Gastrointestinal: Yes: Normal Bowel Sounds, Soft. No: Distention, Tenderness Extremities: Yes: WNL Edema: Yes Edema: LLE: 3+, RLE: 3+ Labs: CBC, BMP 08/17/18 07:00 08/17/18 07:00 INR, PTT INR 1.07 (0.83-1.09) 08/13/18 20:54 Problem List - Problems (1) Acute on chronic respiratory failure with hypoxia and hypercapnia Code(s): J96.21 - ACUTE AND CHRONIC RESPIRATORY FAILURE WITH HYPOXIA; J96.22 - ACUTE AND CHRONIC RESPIRATORY FAILURE WITH HYPERCAPNIA (2) Fall Code(s): W19.XXXA - UNSPECIFIED FALL, INITIAL ENCOUNTER Qualifiers: Encounter type: initial encounter Qualified Code(s): W19.XXXA - Unspecified fall, initial encounter (3) CHF (congestive heart failure) Code(s): I50.9 - HEART FAILURE, UNSPECIFIED Qualifiers: Heart failure type: diastolic Heart failure chronicity: acute on chronic Qualified Code(s): I50.33 - Acute on chronic diastolic (congestive) heart failure (4) COPD (chronic obstructive pulmonary disease) Code(s): J44.9 - CHRONIC OBSTRUCTIVE PULMONARY DISEASE, UNSPECIFIED Qualifiers: COPD type: chronic bronchitis Chronic bronchitis type: unspecified Qualified Code(s): J42 - Unspecified chronic bronchitis (5) Diabetes Code(s): E11.9 - TYPE 2 DIABETES MELLITUS WITHOUT COMPLICATIONS Qualifiers: Diabetes mellitus type: type 2 Diabetes mellitus termination clerk insulin use: without termination clerk use Diabetes mellitus complication status: with skin complications Diabetes mellitus complication detail: with foot ulcer Qualified Code(s): E11.621 - Type 2 diabetes mellitus with foot ulcer; L97.509 - Non-pressure chronic ulcer of other part of unspecified foot with unspecified severity (6) HLD (hyperlipidemia) Code(s): E78.5 - HYPERLIPIDEMIA, UNSPECIFIED (7) HTN (hypertension) Code(s): I10 - ESSENTIAL (PRIMARY) HYPERTENSION (8) Hypothyroid Code(s): E03.9 - HYPOTHYROIDISM, UNSPECIFIED (9) Morbid obesity Code(s): E66.01 - MORBID (SEVERE) OBESITY DUE TO EXCESS CALORIES (10) Pulmonary HTN Code(s): I27.20 - PULMONARY HYPERTENSION, UNSPECIFIED Assessment/Plan -continue lasix 40mg IV bid and 1L fluid restriction -currently -3675 mL, however suspect higher because first day output was not measured -per patient, positive ~20L -continue to monitor bmp while aggressively diuresing -pain in leg improving -will avoid NSAIDs for pain secondary to both GIB and renal function -will add low dose prn tramadol for pain -continue current management
--- NOTE | 2018-08-17 11:32 | PN ---
Progress Note (short form) - Note Progress Note: s: edema improving. no sob, palps, dizziness Current Medications Acetaminophen (Tylenol -) 650 mg PO Q6H PRN PRN Reason: Fever Or Pain Last Admin: 08/16/18 02:38 Dose: 650 mg Albuterol/Ipratropium (Duoneb -) 1 amp NEB RTID [facility] Last Admin: 08/17/18 07:30 Dose: 1 amp Aspirin (Asa -) 81 mg PO DAILY [facility] Last Admin: 08/17/18 10:12 Dose: 81 mg Atorvastatin Calcium (Lipitor -) 20 mg PO HS [facility] Last Admin: 08/16/18 21:38 Dose: 20 mg Enoxaparin Sodium (Lovenox -) 40 mg SQ DAILY [facility] Last Admin: 08/17/18 10:12 Dose: 40 mg Furosemide (Lasix Injection -) 40 mg IVPUSH BIDLASIX [facility] Last Admin: 08/17/18 06:02 Dose: 40 mg Insulin Aspart (Novolog Vial Sliding Scale -) 1 vial SQ ACHS [facility]; Protocol Last Admin: 08/17/18 06:02 Dose: 2 units Levothyroxine Sodium (Synthroid -) 75 mcg PO DAILY@0700 [facility] Last Admin: 08/17/18 06:02 Dose: 75 mcg Multivitamins/Minerals/Vitamin C (Tab-A-Vit -) 1 tab PO DAILY [facility] Last Admin: 08/17/18 10:12 Dose: 1 tab Nystatin/Triamcinolone Acetonide (Mycolog Ii Cream -) 1 applic TP BID [facility] Last Admin: 08/17/18 10:12 Dose: 1 applic Pqeur-7-Raxe Ethyl Esters (Lovaza -) 2 gm PO BID [facility] Last Admin: 08/17/18 10:12 Dose: 2 gm Potassium Chloride (K-Dur -) 10 meq PO DAILY [facility] Last Admin: 08/17/18 10:12 Dose: 10 meq Vital Signs Vital Signs Period Temp Pulse Resp BP Sys/Donohue Pulse Ox Last 24 Hr 98.2 F-98.4 F 84-88 20-21 118-132/58-69 95 calm, nad no icterus/xanthelasma no JVD no carotid bruit RRR, decr intensity (habitus), no murmur/gallop; PMI not palpable abdomen very obese, TDS for masses/pulsation--none appreciated; nontender; not distended + normal BS 2+ le edema bilat pretib A and O x3, normal affect not agitated pos dp pt no carotid bruits no jaundice diaphoresis ecg: sr, nl intervals, no ischemic changes CXR: no sig chf Echo 10/2016: tds; low nl lvef, nl rv, mild lae, mod tr, rvsp 40-50 Echo 02/2016: suboptimal. grossly nl lv size. Mild-mod LV dysfunction. RV not well seen. Mild ARLYN. Mod TR. RVSP 40-50. Small effusion < 1 cm. stress MPI 06/08: no ischemic EKG changes. nl perfusion. EF 45%, global. echo 05/2018 tds, mod TR, LV grossly nl size/function, RVSP 68 mmHg CTA chest: patchy consolidations/atelectasis. no PE Assessment/Plan 73 yo female here with non healing foot wound, redness of le's. 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
[2018-08-17] MEDS: ATORVASTATIN CA 20 MG TABLET (FP) PO SCH (21:34)
[2018-08-18] MEDS: LEVOTHYROXINE NA 75 MCG TABLET (FP) PO SCH (06:09)
[2018-08-18] MEDS: FUROSEMIDE 40 MG/4 ML INJECTABLE VIAL IVPUSH SCH ×3 (06:09→22:55)
[2018-08-18] MEDS: INSULIN SLIDING SCALE (NOVOLOG) 1 VIAL SQ SCH ×4 (06:10→23:38)
[2018-08-18] MEDS: ALBUTEROL SO4 2.5/IPRATROPIUM 0.5 INH SOL 3 ML VIAL.NEB. NEB SCH ×3 (07:13→20:30)
[2018-08-18 07:30] LABS: BASO % 0.5 % (0-2.0); EOS % 2.8 % (0-4.5); HEMOGLOBIN 7.9 GM/dL (10.7-15.3); LYMPH % 11.5 % (8-40); MCH 23.5 pg (25.7-33.7); MCHC 30.4 g/dl (32.0-36.0); MEAN PLT VOLUME 8.4 fl (7.5-11.1); MONO % 6.4 % (3.8-10.2); NEUT % 78.8 % (42.8-82.8); PLATELET COUNT 250 K/MM3 (134-434); RBC 3.38 M/mm3 (3.60-5.2); WHITE BLOOD COUNT 7.1 K/mm3 (4.0-10.0)
[2018-08-18 07:49] LABS: ANION GAP 3 MMOL/L (8-16); BLOOD UREA NITROGEN 21 mg/dL (7-18); CALCIUM 7.6 mg/dL (8.5-10.1); CHLORIDE 95 mmol/L (98-107); CO2 42 mmol/L (21-32); CREATININE 0.8 mg/dL (0.55-1.3); GLUCOSE,RANDOM 155 mg/dL (74-106); MAGNESIUM 1.4 mg/dL (1.8-2.4); PHOSPHOROUS 4.1 mg/dL (2.5-4.9); POTASSIUM 3.7 mmol/L (3.5-5.1); SODIUM 141 mmol/L (136-145)
[2018-08-18] MEDS ORDERED: PT OWN MED DRAWER 7, Y5N ONE (09:04)
[2018-08-18] MEDS: POTASSIUM CHLORIDE TABS 10 MEQ TABLET.ER (FP) PO SCH (09:06)
[2018-08-18] MEDS: ASPIRIN 81 MG CHEWABLE TABLETS PO SCH (09:06)
[2018-08-18] MEDS: OMEGA-3 ACID ETHYL ESTERS (FATTY-ACIDS) 1 GM CAPSULE (FP) PO SCH ×2 (09:06→23:39)
[2018-08-18] MEDS: ENOXAPARIN NA (PORCINE) 40 MG/0.4 ML DISP.SYRIN SQ SCH (09:06)
[2018-08-18] MEDS: MULTIVITAMINS (DAILY MVI) TABLET (FP) PO SCH (09:07)
[2018-08-18] MEDS: NYSTATIN/TRIAMCINOLONE TOPICAL CREAM 15 GM TUBE TP SCH ×2 (09:08→23:39)
--- NOTE | 2018-08-18 11:20 | PN ---
Progress Note, Physician - Current Medication List Current Medications: Active Medications Acetaminophen (Tylenol -) 650 mg PO Q6H PRN PRN Reason: Fever Or Pain Last Admin: 08/16/18 02:38 Dose: 650 mg Albuterol/Ipratropium (Duoneb -) 1 amp NEB RTID [facility] Last Admin: 08/18/18 07:13 Dose: 1 amp Aspirin (Asa -) 81 mg PO DAILY [facility] Last Admin: 08/18/18 09:06 Dose: 81 mg Atorvastatin Calcium (Lipitor -) 20 mg PO HS [facility] Last Admin: 08/17/18 21:34 Dose: 20 mg Enoxaparin Sodium (Lovenox -) 40 mg SQ DAILY [facility] Last Admin: 08/18/18 09:06 Dose: 40 mg Furosemide (Lasix Injection -) 40 mg IVPUSH BIDLASIX [facility] Last Admin: 08/18/18 06:09 Dose: 40 mg Insulin Aspart (Novolog Vial Sliding Scale -) 1 vial SQ ACHS [facility]; Protocol Last Admin: 08/18/18 06:10 Dose: 2 units Levothyroxine Sodium (Synthroid -) 75 mcg PO DAILY@0700 [facility] Last Admin: 08/18/18 06:09 Dose: 75 mcg Multivitamins/Minerals/Vitamin C (Tab-A-Vit -) 1 tab PO DAILY [facility] Last Admin: 08/18/18 09:07 Dose: 1 tab Nystatin/Triamcinolone Acetonide (Mycolog Ii Cream -) 1 applic TP BID [facility] Last Admin: 08/18/18 09:08 Dose: 1 applic Mvpev-7-Wdos Ethyl Esters (Lovaza -) 2 gm PO BID [facility] Last Admin: 08/18/18 09:06 Dose: 2 gm Potassium Chloride (K-Dur -) 10 meq PO DAILY [facility] Last Admin: 08/18/18 09:06 Dose: 10 meq - Objective Vital Signs: Vital Signs Temperature 98.0 F 08/18/18 08:17 Pulse Rate 83 08/18/18 08:17 Respiratory Rate 18 08/18/18 08:17 Blood Pressure 114/55 L 08/18/18 08:17 O2 Sat by Pulse Oximetry (%) 95 08/18/18 09:00 Labs: CBC, BMP 08/18/18 06:35 08/18/18 06:35 INR, PTT INR 1.07 (0.83-1.09) 08/13/18 20:54 Assessment/Plan ecg: sr, nl intervals, no ischemic changes CXR: no sig chf Echo 10/2016: tds; low nl lvef, nl rv, mild lae, mod tr, rvsp 40-50 Echo 02/2016: suboptimal. grossly nl lv size. Mild-mod LV dysfunction. RV not well seen. Mild ARLYN. Mod TR. RVSP 40-50. Small effusion < 1 cm. stress MPI 06/08: no ischemic EKG changes. nl perfusion. EF 45%, global. echo 05/2018 tds, mod TR, LV grossly nl size/function, RVSP 68 mmHg CTA chest: patchy consolidations/atelectasis. no PE Assessment/Plan 73 yo female here with non healing foot wound, redness of le's. 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 for repeat echo here. - admitted with edema, hypoxia and weight gain - receiving IV lasix 40 bid - 08/18: UOP 3-4L daily (boone). says edema not improving. no sob but laying in bed. bedscale wts only--not accurate for fluid status purposes. renal fxn/lytes stable. increase lasix to 40 iv TID today. - fluid restriction--ok to liberalize to 1500 cc (c/o very dry mouth) - monitor daily weights, Cr, lytes, I/O with diuresis HTN - bp controlled - cont current mgmt HLD - con't home statin regimen anemia - H/H here below prior baseline - per primary team
[2018-08-18] MEDS ORDERED: INSULIN (NOVOLOG) ASPART 100 UNITS/ML 10ML VIAL ONE (11:40)
[2018-08-18] MEDS ORDERED: MAGNESIUM OXIDE 400 MG TABLET (FP) PO ONE (12:37)
--- NOTE | 2018-08-18 12:51 | PN ---
Physical Exam: SUBJECTIVE: Patient seen and examined no new events overnight states she still unable to walk. states breathing is at base line. OBJECTIVE: Vital Signs Period Temp Pulse Resp BP Sys/Donohue Pulse Ox Last 24 Hr 97.8 F-98.0 F 83-94 17-22 114-126/55-75 94-95 GENERAL: The patient is awake, alert, and fully oriented, in no acute distress. on nasal canula 4L base line HEAD: Normal with no signs of trauma. ENT: , moist mucous membranes. NECK: Trachea midline, full range of motion, supple. LUNGS: Breath sounds equal, clear to auscultation bilaterally, no wheezes, crackles b/l , no accessory muscle use. on nasal canula 4 l HEART: Regular rate and rhythm, S1, S2 ABDOMEN: Soft, nontender, nondistended, normoactive bowel sounds, no guarding, no rebound, obese EXTREMITIES: warm, well-perfused,dependent edema ++ NEUROLOGICAL: Normal speech, gait not observed. PSYCH: Normal mood, normal affect. SKIN: Warm, dry, Laboratory Results - last 24 hr 08/17/18 08/17/18 08/18/18 16:50 21:31 05:59 WBC RBC Hgb Hct MCV MCH MCHC RDW Plt Count MPV Absolute Neuts (auto) Neutrophils % Lymphocytes % Monocytes % Eosinophils % Basophils % Nucleated RBC % Sodium Potassium Chloride Carbon Dioxide Anion Gap BUN Creatinine Creat Clearance w eGFR POC Glucometer 188 190 159 Random Glucose Calcium Phosphorus Magnesium 08/18/18 08/18/18 08/18/18 06:35 06:35 11:26 WBC 7.1 RBC 3.38 L Hgb 7.9 L Hct 26.0 L MCV 77.0 L MCH 23.5 L MCHC 30.4 L RDW 19.0 H Plt Count 250 MPV 8.4 Absolute Neuts (auto) 5.6 Neutrophils % 78.8 Lymphocytes % 11.5 Monocytes % 6.4 Eosinophils % 2.8 Basophils % 0.5 Nucleated RBC % 0 Sodium 141 Potassium 3.7 Chloride 95 L Carbon Dioxide 42 H Anion Gap 3 L BUN 21 H Creatinine 0.8 Creat Clearance w eGFR > 60 POC Glucometer 173 Random Glucose 155 H Calcium 7.6 L Phosphorus 4.1 Magnesium 1.4 L Active Medications Generic Name Dose Route Start Last Admin Trade Name Freq PRN Reason Stop Dose Admin Acetaminophen 650 mg 08/14/18 02:28 08/16/18 02:38 Tylenol - PO 650 mg Q6H PRN Administration Fever Or Pain Albuterol/Ipratropium 1 amp 08/14/18 08:00 08/18/18 07:13 Duoneb - NEB 1 amp RTID LISA Administration Aspirin 81 mg 08/14/18 10:00 08/18/18 09:06 Asa - PO 81 mg DAILY LISA Administration Atorvastatin Calcium 20 mg 08/14/18 22:00 08/17/18 21:34 Lipitor - PO 20 mg HS LISA Administration Enoxaparin Sodium 40 mg 08/14/18 10:00 08/18/18 09:06 Lovenox - SQ 40 mg DAILY LISA Administration Furosemide 40 mg 08/18/18 14:00 Lasix Injection - IVPUSH TID [facility] Insulin Aspart 1 vial 08/14/18 07:00 08/18/18 11:41 Novolog Vial Sliding Scale - SQ 2 units ACHS LISA Administration Protocol Levothyroxine Sodium 75 mcg 08/14/18 07:00 08/18/18 06:09 Synthroid - PO 75 mcg DAILY@0700 LISA Administration Multivitamins/Minerals/Vitamin C 1 tab 08/14/18 10:00 08/18/18 09:07 Tab-A-Vit - PO 1 tab DAILY LISA Administration Nystatin/Triamcinolone Acetonide 1 applic 08/14/18 10:00 08/18/18 09:08 Mycolog Ii Cream - TP 1 applic BID LISA Administration Ncaet-0-Kxmp Ethyl Esters 2 gm 08/14/18 10:00 08/18/18 09:06 Lovaza - PO 2 gm BID LISA Administration Potassium Chloride 10 meq 08/14/18 10:00 08/18/18 09:06 K-Dur - PO 10 meq DAILY LISA Administration ASSESSMENT/PLAN:Patient is a 73 year old female with past medical history of diastolic CHF, HLD, NIDDM, morbid obesity, hypothyroidism and COPD (O2-dependent ), presented to the ED with bilateral lower leg pain and left hip pain after a fall. #s/p Mechanical fall -Pelvis/hip xray showed no signs of fracture -Physical therapy evaluation -pain control - xray ankle; chronic degenrative changes #Diastolic CHF IV lasix 40mg increased to TID UO 3540 low salt and cholestrol diet. daily weight not reliable oral fluid intake < 1500 electrolytes and cr normal aspirin k dur 10po daily echo pending #HLD -Continue lipitor 20 #NIDDM -Will hold home metformin -Insulin sliding scale implemented -BGM ACHS #Hypothyroidism -Continue synthroid 75mcg daily # Microcytic anemia Hb stable from last admissions. workup can be done out pt will start her on ferrous sulphate on dc #COPD -Continue home Duonebs TID -Continue oxygen at 4L NC -Pre and post assessment prior to discharge #FEN -orally < 1500ml allowed -Electrolytes wnl, routine bmp monitoring -diabetic/sodium restricted diet #Prophylaxis -Lovenox 40mg sq daily #Disposition -full code -med-surg Visit type - Emergency Visit Emergency Visit: Yes ED Registration Date: 08/15/18 Care time: The patient presented to the Emergency Department on the above date and was hospitalized for further evaluation of their emergent condition. - New Patient This patient is new to me today: No - Critical Care Critical Care patient: No
--- NOTE | 2018-08-18 15:33 | PN ---
Teaching Attending Note Name of Resident: Michel Alcantar ATTENDING PHYSICIAN STATEMENT I saw and evaluated the patient. I reviewed the resident's note and discussed the case with the resident. I agree with the resident's findings and plan as documented. SUBJECTIVE: Ms Vázquez says she is still very swollen but denies cp, sob, n/v. OBJECTIVE: Last Vital Signs Temp Pulse Resp BP Pulse Ox 36.7 C 84 18 114/55 L 95 08/18/18 08:17 08/18/18 13:02 08/18/18 08:17 08/18/18 08:17 08/18/18 13:02 Gen: nad, obese Pulm: slight bibasilar crackles CV: rrr w/o m/r/g Abd: +bs, s/nt/nd Ext: 2+ BLE edema CBC, BMP 08/18/18 06:35 08/18/18 06:35 ASSESSMENT AND PLAN: -case d/w Dr Fuentes -increase lasix to 40mg IV tid -diuresing well -continue current management Problem List - Problems (1) Acute on chronic respiratory failure with hypoxia and hypercapnia Code(s): J96.21 - ACUTE AND CHRONIC RESPIRATORY FAILURE WITH HYPOXIA; J96.22 - ACUTE AND CHRONIC RESPIRATORY FAILURE WITH HYPERCAPNIA (2) Fall Code(s): W19.XXXA - UNSPECIFIED FALL, INITIAL ENCOUNTER Qualifiers: Encounter type: initial encounter Qualified Code(s): W19.XXXA - Unspecified fall, initial encounter (3) CHF (congestive heart failure) Code(s): I50.9 - HEART FAILURE, UNSPECIFIED Qualifiers: Heart failure type: diastolic Heart failure chronicity: acute on chronic Qualified Code(s): I50.33 - Acute on chronic diastolic (congestive) heart failure (4) COPD (chronic obstructive pulmonary disease) Code(s): J44.9 - CHRONIC OBSTRUCTIVE PULMONARY DISEASE, UNSPECIFIED Qualifiers: COPD type: chronic bronchitis Chronic bronchitis type: unspecified Qualified Code(s): J42 - Unspecified chronic bronchitis (5) Diabetes Code(s): E11.9 - TYPE 2 DIABETES MELLITUS WITHOUT COMPLICATIONS Qualifiers: Diabetes mellitus type: type 2 Diabetes mellitus terminal carman insulin use: without usp use Diabetes mellitus complication status: with skin complications Diabetes mellitus complication detail: with foot ulcer Qualified Code(s): E11.621 - Type 2 diabetes mellitus with foot ulcer; L97.509 - Non-pressure chronic ulcer of other part of unspecified foot with unspecified severity (6) HLD (hyperlipidemia) Code(s): E78.5 - HYPERLIPIDEMIA, UNSPECIFIED (7) HTN (hypertension) Code(s): I10 - ESSENTIAL (PRIMARY) HYPERTENSION (8) Hypothyroid Code(s): E03.9 - HYPOTHYROIDISM, UNSPECIFIED (9) Morbid obesity Code(s): E66.01 - MORBID (SEVERE) OBESITY DUE TO EXCESS CALORIES (10) Pulmonary HTN Code(s): I27.20 - PULMONARY HYPERTENSION, UNSPECIFIED
[2018-08-18] MEDS: ACETAMINOPHEN 325 MG TABLET (FP) PO PRN (23:37)
[2018-08-18] MEDS: ATORVASTATIN CA 20 MG TABLET (FP) PO SCH (23:37)
[2018-08-19] MEDS: INSULIN SLIDING SCALE (NOVOLOG) 1 VIAL SQ SCH ×4 (06:54→21:14)
[2018-08-19] MEDS: FUROSEMIDE 40 MG/4 ML INJECTABLE VIAL IVPUSH SCH ×3 (06:54→21:13)
[2018-08-19] MEDS: LEVOTHYROXINE NA 75 MCG TABLET (FP) PO SCH (06:55)
[2018-08-19] MEDS: ALBUTEROL SO4 2.5/IPRATROPIUM 0.5 INH SOL 3 ML VIAL.NEB. NEB SCH ×3 (07:54→19:30)
[2018-08-19 08:07] LABS: BASO % 0.4 % (0-2.0); EOS % 3.2 % (0-4.5); HEMATOCRIT 25.3 % (32.4-45.2); HEMOGLOBIN 7.6 GM/dL (10.7-15.3); LYMPH % 12.9 % (8-40); MCH 22.9 pg (25.7-33.7); MEAN CELL VOLUME 76.6 fl (80-96); MEAN PLT VOLUME 8.3 fl (7.5-11.1); MONO % 6.9 % (3.8-10.2); NEUT % 76.6 % (42.8-82.8); PLATELET COUNT 257 K/MM3 (134-434); RDW 19.2 % (11.6-15.6)
--- NOTE | 2018-08-19 08:14 | ECHO ---
Name: LUIS GARCIA Exam:Adult Echocardiogram Study Date: 08/18/2018 03:09 PM Age: 73 yrs Reason For Study: chf Height: 62 in Weight: 307 lb BSA: 2.3 m2 Procedure A complete two-dimensional transthoracic echocardiogram was performed (2D, M-mode, Doppler and color flow Doppler). Technically limited study. Left Ventricle The left ventricle is normal in size. Left ventricular systolic function is normal. Diastolic dysfunc tion, Grade II, consistent with elevated left atrial pressure. Ratio E/E'= 15. No regional wall motion abno rmalities noted. Right Ventricle The right ventricle is normal size. The right ventricular systolic function is normal. Atria The left atrium is moderately dilated. Right atrial size is normal. Mitral Valve There is mild mitral annular calcification. There is no mitral regurgitation noted. Tricuspid Valve The tricuspid valve is normal in structure and function. There is moderate tricuspid regurgitation. P ulmonary artery systolic pressure is at least 68 mmHg if RA pressure is assumed 3 mmHg. Aortic Valve There is mild aortic sclerosis.;. No aortic regurgitation is present. Pulmonic Valve The pulmonic valve is not well visualized. Great Vessels The aortic root is normal size. Pericardium/Pleura There is no pericardial effusion. Interpretation Summary Technically limited study The left ventricle is normal in size. Left ventricular systolic function is normal. No regional wall motion abnormalities noted. Diastolic dysfunction, Grade II, consistent with elevated left atrial pressure. Ratio E/E'= 15 The right ventricular systolic function is normal. The left atrium is moderately dilated. Right atrial size is normal. There is mild mitral annular calcification. There is moderate tricuspid regurgitation. Pulmonary artery systolic pressure is at least 68 mmHg if RA pressure is assumed 3 mmHg. There is mild aortic sclerosis. There is no pericardial effusion. Oh Saleem MD 08/18/2018 04:14 PM
--- NOTE | 2018-08-19 08:21 | PN ---
Physical Exam: SUBJECTIVE: Patient seen and examined states her breathing is fine but is still unable to stand and still have swelling in her legs. Pt made about 3L of urine OBJECTIVE: Vital Signs Period Temp Pulse Resp BP Sys/Donohue Pulse Ox Last 24 Hr 97.8 F-98.3 F 81-88 18-19 122-132/23-71 95-95 GENERAL: The patient is awake, alert, and fully oriented, in no acute distress. on nasal canula 4L base line HEAD: Normal with no signs of trauma. ENT: , moist mucous membranes. NECK: Trachea midline, full range of motion, supple. LUNGS: Breath sounds equal, clear to auscultation bilaterally, no wheezes, crackles b/l , no accessory muscle use. on nasal canula 4 l HEART: Regular rate and rhythm, S1, S2 ABDOMEN: Soft, nontender, nondistended, normoactive bowel sounds, no guarding, no rebound, obese EXTREMITIES: warm, well-perfused,dependent edema ++ NEUROLOGICAL: Normal speech, gait not observed. PSYCH: Normal mood, normal affect. SKIN: Warm, dry, Laboratory Results - last 24 hr 08/18/18 08/18/18 08/18/18 11:26 16:37 23:35 POC Glucometer 173 145 153 08/19/18 06:35 POC Glucometer 170 Active Medications Generic Name Dose Route Start Last Admin Trade Name Freq PRN Reason Stop Dose Admin Acetaminophen 650 mg 08/14/18 02:28 08/18/18 23:37 Tylenol - PO 650 mg Q6H PRN Administration Fever Or Pain Albuterol/Ipratropium 1 amp 08/14/18 08:00 08/19/18 07:54 Duoneb - NEB 1 amp RTID LISA Administration Aspirin 81 mg 08/14/18 10:00 08/18/18 09:06 Asa - PO 81 mg DAILY LISA Administration Atorvastatin Calcium 20 mg 08/14/18 22:00 08/18/18 23:37 Lipitor - PO 20 mg HS LISA Administration Enoxaparin Sodium 40 mg 08/14/18 10:00 08/18/18 09:06 Lovenox - SQ 40 mg DAILY LISA Administration Furosemide 40 mg 08/18/18 14:00 08/19/18 06:54 Lasix Injection - IVPUSH 40 mg TID LISA Administration Insulin Aspart 1 vial 08/14/18 07:00 08/19/18 06:54 Novolog Vial Sliding Scale - SQ 2 units ACHS LISA Administration Protocol Levothyroxine Sodium 75 mcg 08/14/18 07:00 08/19/18 06:55 Synthroid - PO 75 mcg DAILY@0700 LISA Administration Multivitamins/Minerals/Vitamin C 1 tab 08/14/18 10:00 08/18/18 09:07 Tab-A-Vit - PO 1 tab DAILY LISA Administration Nystatin/Triamcinolone Acetonide 1 applic 08/14/18 10:00 08/18/18 23:39 Mycolog Ii Cream - TP 1 applic BID LISA Administration Zhuny-1-Cxob Ethyl Esters 2 gm 08/14/18 10:00 08/18/18 23:39 Lovaza - PO 2 gm BID LISA Administration Potassium Chloride 10 meq 08/14/18 10:00 08/18/18 09:06 K-Dur - PO 10 meq DAILY LISA Administration ASSESSMENT/PLAN:Patient is a 73 year old female with past medical history of diastolic CHF, HLD, NIDDM, morbid obesity, hypothyroidism and COPD (O2-dependent ), presented to the ED with bilateral lower leg pain and left hip pain after a fall. #s/p Mechanical fall -Pelvis/hip xray showed no signs of fracture -Physical therapy evaluation -pain control - xray ankle; chronic degenrative changes #Diastolic CHF IV lasix 40mg increased to TID UO >3L low salt and cholestrol diet. daily weight not reliable oral fluid intake < 1500 monitor electrolytes and cr aspirin k dur 10po daily echo reviewed ef normal #HLD -Continue lipitor 20 #NIDDM -Will hold home metformin -Insulin sliding scale implemented -BGM ACHS #Hypothyroidism -Continue synthroid 75mcg daily # Microcytic anemia Hb stable from last admissions. workup can be done out pt will start her on ferrous sulphate on dc #COPD -Continue home Duonebs TID -Continue oxygen at 4L NC -Pre and post assessment prior to discharge #FEN -orally < 1500ml allowed -Electrolytes wnl, routine bmp monitoring -diabetic/sodium restricted diet #Prophylaxis -Lovenox 40mg sq daily #Disposition -full code -med-surg * Visit type - Emergency Visit Emergency Visit: Yes ED Registration Date: 08/15/18 Care time: The patient presented to the Emergency Department on the above date and was hospitalized for further evaluation of their emergent condition. - New Patient This patient is new to me today: No - Critical Care Critical Care patient: No
[2018-08-19 09:01] LABS: ALBUMIN 2.5 g/dl (3.4-5.0); ALK PHOS 93 U/L (45-117); ANION GAP 5 MMOL/L (8-16); BILIRUBIN,TOTAL 0.4 mg/dL (0.2-1); BLOOD UREA NITROGEN 19 mg/dL (7-18); CALCIUM 7.3 mg/dL (8.5-10.1); CHLORIDE 94 mmol/L (98-107); CO2 42 mmol/L (21-32); CREATININE 0.7 mg/dL (0.55-1.3); GLUCOSE,RANDOM 146 mg/dL (74-106); MAGNESIUM 1.6 mg/dL (1.8-2.4); POTASSIUM 3.4 mmol/L (3.5-5.1); SGOT/AST 9 U/L (15-37); SGPT/ALT 15 U/L (13-61); SODIUM 141 mmol/L (136-145); TOT PROT 5.7 g/dl (6.4-8.2)
[2018-08-19] MEDS: MULTIVITAMINS (DAILY MVI) TABLET (FP) PO SCH (09:10)
[2018-08-19] MEDS: POTASSIUM CHLORIDE TABS 10 MEQ TABLET.ER (FP) PO SCH (09:10)
[2018-08-19] MEDS: ENOXAPARIN NA (PORCINE) 40 MG/0.4 ML DISP.SYRIN SQ SCH (09:10)
[2018-08-19] MEDS: OMEGA-3 ACID ETHYL ESTERS (FATTY-ACIDS) 1 GM CAPSULE (FP) PO SCH ×2 (09:10→21:13)
[2018-08-19] MEDS: NYSTATIN/TRIAMCINOLONE TOPICAL CREAM 15 GM TUBE TP SCH ×2 (09:10→21:15)
[2018-08-19] MEDS: ASPIRIN 81 MG CHEWABLE TABLETS PO SCH (09:10)
--- NOTE | 2018-08-19 10:37 | PN ---
Teaching Attending Note Name of Resident: Michel Alcantar ATTENDING PHYSICIAN STATEMENT I saw and evaluated the patient. I reviewed the resident's note and discussed the case with the resident. I agree with the resident's findings and plan as documented. SUBJECTIVE: Ms Vázquez says she is feeling better, noticed her swelling is slightly improved. Denies cp, sob, n/v. OBJECTIVE: Gen: nad, obese Pulm: ctab w/o w/r/r CV: rrr w/o m/r/g Abd: +bs, s/nt/nd Ext: 3+ BLE but improved CBC, BMP 08/19/18 07:30 08/19/18 07:30 ASSESSMENT AND PLAN: -increase KCl to 20mEq daily -add extra dose of potassium today -continue increased lasix dose -diuresing well, currently recorded at -8.42 L -monitor H/H, slowly declining but currently does not need transfusion -continue PT -continue current management -will need SNF placement, SW aware Problem List - Problems (1) Acute on chronic respiratory failure with hypoxia and hypercapnia Code(s): J96.21 - ACUTE AND CHRONIC RESPIRATORY FAILURE WITH HYPOXIA; J96.22 - ACUTE AND CHRONIC RESPIRATORY FAILURE WITH HYPERCAPNIA (2) Fall Code(s): W19.XXXA - UNSPECIFIED FALL, INITIAL ENCOUNTER Qualifiers: Encounter type: initial encounter Qualified Code(s): W19.XXXA - Unspecified fall, initial encounter (3) CHF (congestive heart failure) Code(s): I50.9 - HEART FAILURE, UNSPECIFIED Qualifiers: Heart failure type: diastolic Heart failure chronicity: acute on chronic Qualified Code(s): I50.33 - Acute on chronic diastolic (congestive) heart failure (4) COPD (chronic obstructive pulmonary disease) Code(s): J44.9 - CHRONIC OBSTRUCTIVE PULMONARY DISEASE, UNSPECIFIED Qualifiers: COPD type: chronic bronchitis Chronic bronchitis type: unspecified Qualified Code(s): J42 - Unspecified chronic bronchitis (5) Diabetes Code(s): E11.9 - TYPE 2 DIABETES MELLITUS WITHOUT COMPLICATIONS Qualifiers: Diabetes mellitus type: type 2 Diabetes mellitus long term acute care registered nurse insulin use: without nursing home use Diabetes mellitus complication status: with skin complications Diabetes mellitus complication detail: with foot ulcer Qualified Code(s): E11.621 - Type 2 diabetes mellitus with foot ulcer; L97.509 - Non-pressure chronic ulcer of other part of unspecified foot with unspecified severity (6) HLD (hyperlipidemia) Code(s): E78.5 - HYPERLIPIDEMIA, UNSPECIFIED (7) HTN (hypertension) Code(s): I10 - ESSENTIAL (PRIMARY) HYPERTENSION (8) Hypothyroid Code(s): E03.9 - HYPOTHYROIDISM, UNSPECIFIED (9) Morbid obesity Code(s): E66.01 - MORBID (SEVERE) OBESITY DUE TO EXCESS CALORIES (10) Pulmonary HTN Code(s): I27.20 - PULMONARY HYPERTENSION, UNSPECIFIED
[2018-08-19] MEDS ORDERED: POTASSIUM CHLORIDE TABS 10 MEQ TABLET.ER (FP) PO ONE (11:00)
[2018-08-19] MEDS: DOCUSATE SODIUM 100 MG CAPSULE (FP) PO SCH ×2 (11:56→21:13)
[2018-08-19] MEDS: POLYETHYLENE GLYCOL 3350 119 GM BTL PO SCH ×2 (11:56→21:15)
--- NOTE | 2018-08-19 12:03 | PN ---
Progress Note (short form) - Note Progress Note: s: no chest pain, palps, dyspnea. edema improving Current Medications Acetaminophen (Tylenol -) 650 mg PO Q6H PRN PRN Reason: Fever Or Pain Last Admin: 08/18/18 23:37 Dose: 650 mg Albuterol/Ipratropium (Duoneb -) 1 amp NEB RTID [facility] Last Admin: 08/19/18 07:54 Dose: 1 amp Aspirin (Asa -) 81 mg PO DAILY [facility] Last Admin: 08/19/18 09:10 Dose: 81 mg Atorvastatin Calcium (Lipitor -) 20 mg PO HS [facility] Last Admin: 08/18/18 23:37 Dose: 20 mg Docusate Sodium (Colace -) 100 mg PO BID [facility] Enoxaparin Sodium (Lovenox -) 40 mg SQ DAILY [facility] Last Admin: 08/19/18 09:10 Dose: 40 mg Furosemide (Lasix Injection -) 40 mg IVPUSH TID [facility] Last Admin: 08/19/18 06:54 Dose: 40 mg Insulin Aspart (Novolog Vial Sliding Scale -) 1 vial SQ ACHS [facility]; Protocol Last Admin: 08/19/18 11:53 Dose: Not Given Levothyroxine Sodium (Synthroid -) 75 mcg PO DAILY@0700 [facility] Last Admin: 08/19/18 06:55 Dose: 75 mcg Multivitamins/Minerals/Vitamin C (Tab-A-Vit -) 1 tab PO DAILY [facility] Last Admin: 08/19/18 09:10 Dose: 1 tab Nystatin/Triamcinolone Acetonide (Mycolog Ii Cream -) 1 applic TP BID [facility] Last Admin: 08/19/18 09:10 Dose: 1 applic Mflpx-4-Czgg Ethyl Esters (Lovaza -) 2 gm PO BID [facility] Last Admin: 08/19/18 09:10 Dose: 2 gm Polyethylene Glycol (Miralax (For Daily Use) -) 17 gm PO BID [facility] Potassium Chloride (K-Dur -) 20 meq PO DAILY [facility] - Objective Vital Signs Period Temp Pulse Resp BP Sys/Donohue Pulse Ox Last 24 Hr 97.8 F-98.3 F 81-88 18-20 111-132/23-71 95-95 Assessment/Plan ecg: sr, nl intervals, no ischemic changes CXR: no sig chf Echo 10/2016: tds; low nl lvef, nl rv, mild lae, mod tr, rvsp 40-50 Echo 02/2016: suboptimal. grossly nl lv size. Mild-mod LV dysfunction. RV not well seen. Mild ARLYN. Mod TR. RVSP 40-50. Small effusion < 1 cm. stress MPI 06/08: no ischemic EKG changes. nl perfusion. EF 45%, global. echo 05/2018 tds, mod TR, LV grossly nl size/function, RVSP 68 mmHg CTA chest: patchy consolidations/atelectasis. no PE echo 07/2018 nl LV function, grade II diastolic dysfunction with elevated LA pressure, LA mod dilated, mod TR, PASP at least 68 mmHg Assessment/Plan 73 yo female here with non healing foot wound, redness of le's. acute on chronic diast chf, pulm HTN (WHO 2?): - preserved LVEF (11/07 echo) with no signif valve dysfunction - repeat echo nl LV function with severe pulm HTN - admitted with edema, hypoxia and weight gain - receiving IV lasix 40 bid - 08/18: UOP 3-4L daily (boone). says edema not improving. no sob but laying in bed. bedscale wts only--not accurate for fluid status purposes. renal fxn/lytes stable. increase lasix to 40 iv TID today. - 08/19 continue lasix 40 mg IV TID - fluid restriction--ok to liberalize to 1500 cc (c/o very dry mouth) - monitor daily weights, Cr, lytes, I/O with diuresis HTN - bp controlled - cont current mgmt HLD - con't home statin regimen anemia - H/H here below prior baseline - per primary team
[2018-08-19] MEDS ORDERED: MAGNESIUM OXIDE 400 MG TABLET (FP) PO ONE (14:46)
[2018-08-19] MEDS ORDERED: POTASSIUM CHLORIDE ORAL LIQUID 20 MEQ/15 ML PO ONE (14:46)
--- NOTE | 2018-08-19 14:47 | CONSULT ---
Consult - text type - Consultation Consultation Note: Podiatry Consultation: 73 year old diabetic female admitted for leg pain, swelling s/p fall. Has history of CHF exacerbation. Podiatry consultation requested for diabetic evaluation, trimming of toe nails. PMHx: DM, HTN, HLP, CHF, COPD Meds: noted ALL: codeine, tramadol, shellfish MASON: Pedal pulses palpable, TG wnl, CFT brisk to all toes bilaterally. There is a healed and epithelialized right heel diabetic ulcer. Nails are elongated, discolored, thickened with subungual debris, tender to palpation x 10. There are no nail bed ulcers, no signs of infection. Epicritic and protective sensations diminished bilateral foot. There is diffuse dry scaling skin bilaterally. Imp: 73 year old diabetic female with onychomycosis 1. Manual debridement of mycotic nails x 10 using nail nipper. Patient tolerated the procedure well without complications. 2. Continue heel offloading. 3. Contine TP moisturizer for dry skin. 4. Discussed appropriate diabetic foot hygiene. 5. Patient can f/u upon discharge in wound healing center. [phone]. 6. Thank you for the courtesy of this consultation. Pallavi Rhodes DPM
[2018-08-19] MEDS ORDERED: LIDOCAINE HCL 2% JELLY (30 ML/TUBE) TP ONE (18:45)
[2018-08-19] MEDS: ATORVASTATIN CA 20 MG TABLET (FP) PO SCH (21:13)
[2018-08-20] MEDS: ACETAMINOPHEN 325 MG TABLET (FP) PO PRN (03:06)
[2018-08-20] MEDS: FUROSEMIDE 40 MG/4 ML INJECTABLE VIAL IVPUSH SCH ×3 (06:06→22:11)
[2018-08-20] MEDS: LEVOTHYROXINE NA 75 MCG TABLET (FP) PO SCH (06:07)
[2018-08-20] MEDS: INSULIN SLIDING SCALE (NOVOLOG) 1 VIAL SQ SCH ×4 (06:07→22:12)
[2018-08-20] MEDS: ALBUTEROL SO4 2.5/IPRATROPIUM 0.5 INH SOL 3 ML VIAL.NEB. NEB SCH ×3 (07:29→21:30)
[2018-08-20 07:51] LABS: ALBUMIN 2.6 g/dl (3.4-5.0); ALK PHOS 102 U/L (45-117); ANION GAP 4 MMOL/L (8-16); BILIRUBIN,TOTAL 0.6 mg/dL (0.2-1); BLOOD UREA NITROGEN 18 mg/dL (7-18); CALCIUM 7.4 mg/dL (8.5-10.1); CHLORIDE 94 mmol/L (98-107); CO2 43 mmol/L (21-32); CREATININE 0.8 mg/dL (0.55-1.3); GLUCOSE,RANDOM 154 mg/dL (74-106); POTASSIUM 3.9 mmol/L (3.5-5.1); SGOT/AST 12 U/L (15-37); SGPT/ALT 16 U/L (13-61); SODIUM 141 mmol/L (136-145); TOT PROT 5.9 g/dl (6.4-8.2)
--- NOTE | 2018-08-20 08:38 | PN ---
Teaching Attending Note Name of Resident: Michel Alcantar ATTENDING PHYSICIAN STATEMENT I saw and evaluated the patient. I reviewed the resident's note and discussed the case with the resident. I agree with the resident's findings and plan as documented. SUBJECTIVE: Not in distress denies any SOB c/o LE swelling OBJECTIVE: Vital Signs Temperature 98.2 F 08/20/18 05:45 Pulse Rate 87 08/20/18 06:04 Respiratory Rate 20 08/20/18 06:04 Blood Pressure 125/70 08/20/18 06:04 O2 Sat by Pulse Oximetry (%) 96 08/19/18 22:00 Elderly F not in distress c/o lower extremity swelling HEENT: Moist + anemia, PERRLA EOMI NECK:No JVd No Bruit CHEST:CTA B/L CVS:S1S2 R no m/g/r ABD:No distention, non tender Bs EXT:++ B/L edema feet, no calf tenderness AUTOMATIC STACKER:AOx3 non focal LABS: CBC, BMP 08/19/18 07:30 08/20/18 06:30 Active Medications Acetaminophen (Tylenol -) 650 mg PO Q6H PRN PRN Reason: Fever Or Pain Last Admin: 08/20/18 03:06 Dose: 650 mg Albuterol/Ipratropium (Duoneb -) 1 amp NEB RTID [facility] Last Admin: 08/20/18 07:29 Dose: 1 amp Aspirin (Asa -) 81 mg PO DAILY [facility] Last Admin: 08/19/18 09:10 Dose: 81 mg Atorvastatin Calcium (Lipitor -) 20 mg PO HS [facility] Last Admin: 08/19/18 21:13 Dose: 20 mg Docusate Sodium (Colace -) 100 mg PO BID [facility] Last Admin: 08/19/18 21:13 Dose: 100 mg Enoxaparin Sodium (Lovenox -) 40 mg SQ DAILY [facility] Last Admin: 08/19/18 09:10 Dose: 40 mg Furosemide (Lasix Injection -) 40 mg IVPUSH TID [facility] Last Admin: 08/20/18 06:06 Dose: 40 mg Insulin Aspart (Novolog Vial Sliding Scale -) 1 vial SQ ACHS [facility]; Protocol Last Admin: 08/20/18 06:07 Dose: 2 units Levothyroxine Sodium (Synthroid -) 75 mcg PO DAILY@0700 [facility] Last Admin: 08/20/18 06:07 Dose: 75 mcg Multivitamins/Minerals/Vitamin C (Tab-A-Vit -) 1 tab PO DAILY [facility] Last Admin: 08/19/18 09:10 Dose: 1 tab Nystatin/Triamcinolone Acetonide (Mycolog Ii Cream -) 1 applic TP BID [facility] Last Admin: 08/19/18 21:15 Dose: 1 applic Pluyl-1-Zufi Ethyl Esters (Lovaza -) 2 gm PO BID [facility] Last Admin: 08/19/18 21:13 Dose: 2 gm Polyethylene Glycol (Miralax (For Daily Use) -) 17 gm PO BID [facility] Last Admin: 08/19/18 21:15 Dose: 17 gm Potassium Chloride (K-Dur -) 20 meq PO DAILY [facility] ASSESSMENT AND PLAN: 73 yrs olds morbidly obese F with H/O T2DM, secondary Pulmonary HTN, Rt sided HF Hypothyroidism, , COPD on home O2, Dyslipedemia, admitted with mechanical fall after discharged from [facility] to home since previous hospitalization accumulated almos 50 Lbs with worsening :LE swelling. Impression; Decompensated: CHF Problem List - Problems (1) Acute decompensated heart failure Assessment/Plan: Patient has H/O Pulmonary HTN, low normal EF last ECHOec , mod TR, LV grossly nl size/function, RVSP 68 mmHg possibility of Rt sided HF as ;LUngs are clear + JVD and LE swelling never, possibility of LUCIUS or Obesity Hypoventilation syndrome will discuss with for more information, mean time cont IV lasix and F/U Cardiology recommendations. Code(s): I50.9 - HEART FAILURE, UNSPECIFIED (2) Hypoxia Assessment/Plan: of unknown etiology on home O2 cont O2 F/U Pulmonary for possible LUCIUS evaluation. Code(s): R09.02 - HYPOXEMIA (3) Anemia Assessment/Plan: Chronic with worsening H/H F/U anemia w/u Sr Iron TIBC, B12 ferritin. Code(s): D64.9 - ANEMIA, UNSPECIFIED Qualifiers: Anemia type: unspecified type Qualified Code(s): D64.9 - Anemia, unspecified (4) Diabetes Assessment/Plan: Optimize Glycemic control Code(s): E11.9 - TYPE 2 DIABETES MELLITUS WITHOUT COMPLICATIONS Qualifiers: Diabetes mellitus type: type 2 Diabetes mellitus marketing liaison insulin use: without marketing liaison use Diabetes mellitus complication status: with skin complications Diabetes mellitus complication detail: with foot ulcer Qualified Code(s): E11.621 - Type 2 diabetes mellitus with foot ulcer; L97.509 - Non-pressure chronic ulcer of other part of unspecified foot with unspecified severity (5) HTN (hypertension) Assessment/Plan: Cont all home meds Code(s): I10 - ESSENTIAL (PRIMARY) HYPERTENSION (6) HLD (hyperlipidemia) Assessment/Plan: Cont Statin Code(s): E78.5 - HYPERLIPIDEMIA, UNSPECIFIED (7) Morbid obesity with BMI of 50.0-59.9, adult Assessment/Plan: Nutrition consult, educate wt management. Code(s): E66.01 - MORBID (SEVERE) OBESITY DUE TO EXCESS CALORIES; Z68.43 - BODY MASS INDEX (BMI) 50-59.9, ADULT (8) CKD (chronic kidney disease) stage 3, GFR 30-59 ml/min Assessment/Plan: Stable F/U BMP Code(s): N18.3 - CHRONIC KIDNEY DISEASE, STAGE 3 (MODERATE)
[2018-08-20] MEDS: ASPIRIN 81 MG CHEWABLE TABLETS PO SCH (09:59)
[2018-08-20] MEDS: ENOXAPARIN NA (PORCINE) 40 MG/0.4 ML DISP.SYRIN SQ SCH (10:00)
[2018-08-20] MEDS: OMEGA-3 ACID ETHYL ESTERS (FATTY-ACIDS) 1 GM CAPSULE (FP) PO SCH ×2 (10:00→22:11)
[2018-08-20] MEDS: DOCUSATE SODIUM 100 MG CAPSULE (FP) PO SCH ×2 (10:00→22:11)
[2018-08-20] MEDS: MULTIVITAMINS (DAILY MVI) TABLET (FP) PO SCH (10:00)
[2018-08-20] MEDS: POLYETHYLENE GLYCOL 3350 119 GM BTL PO SCH ×2 (10:00→22:11)
[2018-08-20] MEDS: POTASSIUM CHLORIDE TABS 20 MEQ TABLET.ER (FP) PO SCH (10:00)
[2018-08-20] MEDS: NYSTATIN/TRIAMCINOLONE TOPICAL CREAM 15 GM TUBE TP SCH ×2 (10:00→22:11)
--- NOTE | 2018-08-20 12:03 | PN ---
Progress Note (short form) - Note Progress Note: s: no chest pain, palps, dyspnea. edema improved Current Medications Acetaminophen (Tylenol -) 650 mg PO Q6H PRN PRN Reason: Fever Or Pain Last Admin: 08/20/18 03:06 Dose: 650 mg Albuterol/Ipratropium (Duoneb -) 1 amp NEB RTID [facility] Last Admin: 08/20/18 07:29 Dose: 1 amp Aspirin (Asa -) 81 mg PO DAILY [facility] Last Admin: 08/20/18 09:59 Dose: 81 mg Atorvastatin Calcium (Lipitor -) 20 mg PO HS [facility] Last Admin: 08/19/18 21:13 Dose: 20 mg Docusate Sodium (Colace -) 100 mg PO BID [facility] Last Admin: 08/20/18 10:00 Dose: 100 mg Enoxaparin Sodium (Lovenox -) 40 mg SQ DAILY [facility] Last Admin: 08/20/18 10:00 Dose: 40 mg Furosemide (Lasix Injection -) 40 mg IVPUSH TID [facility] Last Admin: 08/20/18 06:06 Dose: 40 mg Insulin Aspart (Novolog Vial Sliding Scale -) 1 vial SQ ACHS [facility]; Protocol Last Admin: 08/20/18 11:53 Dose: Not Given Levothyroxine Sodium (Synthroid -) 75 mcg PO DAILY@0700 [facility] Last Admin: 08/20/18 06:07 Dose: 75 mcg Multivitamins/Minerals/Vitamin C (Tab-A-Vit -) 1 tab PO DAILY [facility] Last Admin: 08/20/18 10:00 Dose: 1 tab Nystatin/Triamcinolone Acetonide (Mycolog Ii Cream -) 1 applic TP BID [facility] Last Admin: 08/20/18 10:00 Dose: 1 applic Mtsta-8-Bsxe Ethyl Esters (Lovaza -) 2 gm PO BID [facility] Last Admin: 08/20/18 10:00 Dose: 2 gm Polyethylene Glycol (Miralax (For Daily Use) -) 17 gm PO BID [facility] Last Admin: 08/20/18 10:00 Dose: 17 gm Potassium Chloride (K-Dur -) 20 meq PO DAILY [facility] Last Admin: 08/20/18 10:00 Dose: 20 meq - Objective Vital Signs Period Temp Pulse Resp BP Sys/Donohue Pulse Ox Last 24 Hr 98 F-98.2 F 82-88 20-21 110-129/51-73 96 Assessment/Plan ecg: sr, nl intervals, no ischemic changes CXR: no sig chf Echo 10/2016: tds; low nl lvef, nl rv, mild lae, mod tr, rvsp 40-50 Echo 02/2016: suboptimal. grossly nl lv size. Mild-mod LV dysfunction. RV not well seen. Mild ARLYN. Mod TR. RVSP 40-50. Small effusion < 1 cm. stress MPI 06/08: no ischemic EKG changes. nl perfusion. EF 45%, global. echo 05/2018 tds, mod TR, LV grossly nl size/function, RVSP 68 mmHg CTA chest: patchy consolidations/atelectasis. no PE echo 07/2018 nl LV function, grade II diastolic dysfunction with elevated LA pressure, LA mod dilated, mod TR, PASP at least 68 mmHg Assessment/Plan 73 yo female here with non healing foot wound, redness of le's. acute on chronic diast chf, pulm HTN (WHO 2?): - preserved LVEF (11/07 echo) with no signif valve dysfunction - repeat echo nl LV function with severe pulm HTN - admitted with edema, hypoxia and weight gain - receiving IV lasix 40 bid - 08/18: UOP 3-4L daily (boone). says edema not improving. no sob but laying in bed. bedscale wts only--not accurate for fluid status purposes. renal fxn/lytes stable. increase lasix to 40 iv TID today. - 08/19- continue lasix 40 mg IV TID - fluid restriction--ok to liberalize to 1500 cc (c/o very dry mouth) - monitor daily weights, Cr, lytes, I/O with diuresis HTN - bp controlled - cont current mgmt HLD - con't home statin regimen anemia - H/H here below prior baseline - per primary team
--- NOTE | 2018-08-20 13:53 | PN ---
Physical Exam: SUBJECTIVE: Patient seen and examined no new complaints. OBJECTIVE: Vital Signs Period Temp Pulse Resp BP Sys/Donohue Pulse Ox Last 24 Hr 98 F-98.2 F 82-88 20-21 110-129/51-73 96 GENERAL: The patient is awake, alert, and fully oriented, in no acute distress. on nasal canula 4L base line HEAD: Normal with no signs of trauma. ENT: , moist mucous membranes. NECK: Trachea midline, full range of motion, supple. LUNGS: Breath sounds equal, clear to auscultation bilaterally, no wheezes, crackles b/l , no accessory muscle use. on nasal canula 4 l HEART: Regular rate and rhythm, S1, S2 ABDOMEN: Soft, nontender, nondistended, normoactive bowel sounds, no guarding, no rebound, obese EXTREMITIES: warm, well-perfused,dependent edema ++ NEUROLOGICAL: Normal speech, gait not observed. PSYCH: Normal mood, normal affect. SKIN: Warm, dry, Laboratory Results - last 24 hr 08/19/18 08/19/18 08/20/18 16:33 21:12 06:00 Sodium Potassium Chloride Carbon Dioxide Anion Gap BUN Creatinine Creat Clearance w eGFR POC Glucometer 223 224 172 Random Glucose Calcium Magnesium Total Bilirubin AST ALT Alkaline Phosphatase Total Protein Albumin 08/20/18 08/20/18 06:30 11:47 Sodium 141 Potassium 3.9 Chloride 94 L Carbon Dioxide 43 H Anion Gap 4 L BUN 18 Creatinine 0.8 Creat Clearance w eGFR > 60 POC Glucometer 151 Random Glucose 154 H Calcium 7.4 L Magnesium 2.0 Total Bilirubin 0.6 AST 12 L ALT 16 Alkaline Phosphatase 102 Total Protein 5.9 L Albumin 2.6 L Active Medications Generic Name Dose Route Start Last Admin Trade Name Freq PRN Reason Stop Dose Admin Acetaminophen 650 mg 08/14/18 02:28 08/20/18 03:06 Tylenol - PO 650 mg Q6H PRN Administration Fever Or Pain Albuterol/Ipratropium 1 amp 08/14/18 08:00 08/20/18 07:29 Duoneb - NEB 1 amp RTID [facility] Administration Aspirin 81 mg 08/14/18 10:00 08/20/18 09:59 Asa - PO 81 mg DAILY [facility] Administration Atorvastatin Calcium 20 mg 08/14/18 22:00 08/19/18 21:13 Lipitor - PO 20 mg HS [facility] Administration Docusate Sodium 100 mg 08/19/18 11:30 08/20/18 10:00 Colace - PO 100 mg BID [facility] Administration Enoxaparin Sodium 40 mg 08/14/18 10:00 08/20/18 10:00 Lovenox - SQ 40 mg DAILY [facility] Administration Furosemide 40 mg 08/18/18 14:00 08/20/18 13:46 Lasix Injection - IVPUSH 40 mg TID [facility] Administration Insulin Aspart 1 vial 08/14/18 07:00 08/20/18 11:53 Novolog Vial Sliding Scale - SQ Not Given ACHS [facility] Protocol Levothyroxine Sodium 75 mcg 08/14/18 07:00 08/20/18 06:07 Synthroid - PO 75 mcg DAILY@0700 [facility] Administration Multivitamins/Minerals/Vitamin C 1 tab 08/14/18 10:00 08/20/18 10:00 Tab-A-Vit - PO 1 tab DAILY [facility] Administration Nystatin/Triamcinolone Acetonide 1 applic 08/14/18 10:00 08/20/18 10:00 Mycolog Ii Cream - TP 1 applic BID [facility] Administration Atbwt-7-Vilx Ethyl Esters 2 gm 08/14/18 10:00 08/20/18 10:00 Lovaza - PO 2 gm BID [facility] Administration Polyethylene Glycol 17 gm 08/19/18 11:30 08/20/18 10:00 Miralax (For Daily Use) - PO 17 gm BID [facility] Administration Potassium Chloride 20 meq 08/19/18 10:33 08/20/18 10:00 K-Dur - PO 20 meq DAILY [facility] Administration Intake & Output 08/17/18 08/18/18 08/19/18 08/20/18 23:59 23:59 23:59 23:59 Intake Total 510 650 900 150 Output Total 4050 3000 3400 500 Balance -3540 -2350 -2500 -350 Weight 308 lb 307 lb 9 oz 305 lb 8 oz ASSESSMENT/PLAN: Patient is a 73 year old female with past medical history of diastolic CHF, HLD , NIDDM, morbid obesity, hypothyroidism and COPD (O2-dependent), presented to the ED with bilateral lower leg pain and left hip pain after a fall. #s/p Mechanical fall -Pelvis/hip xray showed no signs of fracture -Physical therapy evaluation -pain control - xray ankle; chronic degenrative changes #Diastolic CHF IV lasix 40mg TID low salt and cholesterol diet. oral fluid intake < 1500 monitor electrolytes and cr aspirin k dur 10po daily echo reviewed ef normal #HLD -Continue lipitor 20 #NIDDM -Will hold home metformin -Insulin sliding scale implemented -BGM ACHS #Hypothyroidism -Continue synthroid 75mcg daily # Microcytic anemia Hb stable from last admissions. workup can be done out pt will start her on ferrous sulphate on dc #COPD -Continue home Duonebs TID -Continue oxygen at 4L NC -Pre and post assessment prior to discharge #FEN -orally < 1500ml allowed -Electrolytes wnl, routine bmp monitoring -diabetic/sodium restricted diet #Prophylaxis -Lovenox 40mg sq daily #Disposition -full code -med-surg Visit type - Emergency Visit Emergency Visit: Yes ED Registration Date: 08/15/18 Care time: The patient presented to the Emergency Department on the above date and was hospitalized for further evaluation of their emergent condition. - New Patient This patient is new to me today: No - Critical Care Critical Care patient: No
[2018-08-20] MEDS ORDERED: LACTULOSE 20 GM/30 ML UDC (FOR ORAL USE ONLY) PO ONE (13:58)
[2018-08-20] MEDS ORDERED: INSULIN (NOVOLOG) ASPART 100 UNITS/ML 10ML VIAL ONE (20:44)
[2018-08-20] MEDS: ATORVASTATIN CA 20 MG TABLET (FP) PO SCH (22:11)
[2018-08-21] MEDS: INSULIN SLIDING SCALE (NOVOLOG) 1 VIAL SQ SCH ×4 (06:09→21:51)
[2018-08-21] MEDS: FUROSEMIDE 40 MG/4 ML INJECTABLE VIAL IVPUSH SCH ×2 (06:10→21:50)
[2018-08-21] MEDS: LEVOTHYROXINE NA 75 MCG TABLET (FP) PO SCH (06:10)
[2018-08-21] MEDS: ALBUTEROL SO4 2.5/IPRATROPIUM 0.5 INH SOL 3 ML VIAL.NEB. NEB SCH ×3 (08:03→20:15)
--- NOTE | 2018-08-21 08:17 | PN ---
Teaching Attending Note Name of Resident: Michel Alcantar ATTENDING PHYSICIAN STATEMENT I saw and evaluated the patient. I reviewed the resident's note and discussed the case with the resident. I agree with the resident's findings and plan as documented. SUBJECTIVE: OBJECTIVE: Vital Signs Temperature 98.5 F 08/21/18 05:00 Pulse Rate 81 08/21/18 05:00 Respiratory Rate 20 08/21/18 05:00 Blood Pressure 113/67 08/21/18 05:00 O2 Sat by Pulse Oximetry (%) 92 L 08/20/18 22:00 Intake & Output 08/18/18 08/19/18 08/20/18 08/21/18 23:59 23:59 23:59 23:59 Intake Total 650 900 675 Output Total 3000 3400 2000 3200 Balance -2350 -2500 -1325 -3200 Weight 307 lb 9 oz 305 lb 8 oz 303 lb 2 oz Elderly F not in distress c/o lower extremity swelling HEENT: Moist + anemia, PERRLA EOMI NECK:No JVd No Bruit CHEST:CTA B/L CVS:S1S2 R no m/g/r ABD:No distention, non tender Bs EXT:++ B/L edema feet, no calf tenderness RESOLUTION MANAGER:AOx3 non focal Active Medications Acetaminophen (Tylenol -) 650 mg PO Q6H PRN PRN Reason: Fever Or Pain Last Admin: 08/20/18 03:06 Dose: 650 mg Albuterol/Ipratropium (Duoneb -) 1 amp NEB RTID [facility] Last Admin: 08/21/18 08:03 Dose: 1 amp Aspirin (Asa -) 81 mg PO DAILY [facility] Last Admin: 08/20/18 09:59 Dose: 81 mg Atorvastatin Calcium (Lipitor -) 20 mg PO HS [facility] Last Admin: 08/20/18 22:11 Dose: 20 mg Docusate Sodium (Colace -) 100 mg PO BID [facility] Last Admin: 08/20/18 22:11 Dose: 100 mg Enoxaparin Sodium (Lovenox -) 40 mg SQ DAILY [facility] Last Admin: 08/20/18 10:00 Dose: 40 mg Furosemide (Lasix Injection -) 40 mg IVPUSH TID [facility] Last Admin: 08/21/18 06:10 Dose: 40 mg Insulin Aspart (Novolog Vial Sliding Scale -) 1 vial SQ ACHS [facility]; Protocol Last Admin: 08/21/18 06:09 Dose: 2 units Levothyroxine Sodium (Synthroid -) 75 mcg PO DAILY@0700 [facility] Last Admin: 08/21/18 06:10 Dose: 75 mcg Multivitamins/Minerals/Vitamin C (Tab-A-Vit -) 1 tab PO DAILY [facility] Last Admin: 08/20/18 10:00 Dose: 1 tab Nystatin/Triamcinolone Acetonide (Mycolog Ii Cream -) 1 applic TP BID [facility] Last Admin: 08/20/18 22:11 Dose: 1 applic Stvmu-0-Zmsa Ethyl Esters (Lovaza -) 2 gm PO BID [facility] Last Admin: 08/20/18 22:11 Dose: 2 gm Polyethylene Glycol (Miralax (For Daily Use) -) 17 gm PO BID [facility] Last Admin: 08/20/18 22:11 Dose: 17 gm Potassium Chloride (K-Dur -) 20 meq PO DAILY [facility] Last Admin: 08/20/18 10:00 Dose: 20 meq ASSESSMENT AND PLAN: Problem List - Problems (1) Acute decompensated heart failure Assessment/Plan: Patient has H/O Pulmonary HTN, low normal EF last ECHO , mod TR, LV grossly nl size/function, RVSP 68 mmHg possibility of Rt sided HF as ;LUngs are clear + JVD and LE swelling never, possibility of LUCIUS or Obesity Hypoventilation syndrome will discuss with for more information, mean time contraction alkalosis high HCO3 cont IV 40 mg TID lasix and F/U Cardiology recommendations. Code(s): I50.9 - HEART FAILURE, UNSPECIFIED (2) Hypoxia Assessment/Plan: cont O2 target sPO2 90% pulmonary input appreciated will F/U recommondations. Code(s): R09.02 - HYPOXEMIA (3) Anemia Assessment/Plan: Chronic with worsening H/H F/U anemia w/u Sr Iron TIBC, B12 ferritin. Code(s): D64.9 - ANEMIA, UNSPECIFIED Qualifiers: Anemia type: unspecified type Qualified Code(s): D64.9 - Anemia, unspecified (4) Diabetes Assessment/Plan: Optimize Glycemic control Code(s): E11.9 - TYPE 2 DIABETES MELLITUS WITHOUT COMPLICATIONS Qualifiers: Diabetes mellitus type: type 2 Diabetes mellitus snf insulin use: without snf use Diabetes mellitus complication status: with skin complications Diabetes mellitus complication detail: with foot ulcer Qualified Code(s): E11.621 - Type 2 diabetes mellitus with foot ulcer; L97.509 - Non-pressure chronic ulcer of other part of unspecified foot with unspecified severity (5) HTN (hypertension) Assessment/Plan: Cont all home meds Code(s): I10 - ESSENTIAL (PRIMARY) HYPERTENSION (6) HLD (hyperlipidemia) Assessment/Plan: Cont Statin Code(s): E78.5 - HYPERLIPIDEMIA, UNSPECIFIED (7) Morbid obesity with BMI of 50.0-59.9, adult Assessment/Plan: Nutrition consult, educate wt management. Code(s): E66.01 - MORBID (SEVERE) OBESITY DUE TO EXCESS CALORIES; Z68.43 - BODY MASS INDEX (BMI) 50-59.9, ADULT
[2018-08-21 08:30] LABS: ANION GAP 3 MMOL/L (8-16); BLOOD UREA NITROGEN 16 mg/dL (7-18); CALCIUM 7.4 mg/dL (8.5-10.1); CHLORIDE 95 mmol/L (98-107); CO2 44 mmol/L (21-32); CREATININE 0.7 mg/dL (0.55-1.3); GLUCOSE,RANDOM 162 mg/dL (74-106); MAGNESIUM 1.6 mg/dL (1.8-2.4); POTASSIUM 3.7 mmol/L (3.5-5.1); SODIUM 142 mmol/L (136-145)
[2018-08-21] MEDS: OMEGA-3 ACID ETHYL ESTERS (FATTY-ACIDS) 1 GM CAPSULE (FP) PO SCH ×2 (09:44→21:50)
[2018-08-21] MEDS: ENOXAPARIN NA (PORCINE) 40 MG/0.4 ML DISP.SYRIN SQ SCH (09:44)
[2018-08-21] MEDS: ASPIRIN 81 MG CHEWABLE TABLETS PO SCH (09:44)
[2018-08-21] MEDS: POTASSIUM CHLORIDE TABS 20 MEQ TABLET.ER (FP) PO SCH ×2 (09:45→21:50)
[2018-08-21] MEDS: DOCUSATE SODIUM 100 MG CAPSULE (FP) PO SCH ×2 (09:45→21:50)
[2018-08-21] MEDS: MULTIVITAMINS (DAILY MVI) TABLET (FP) PO SCH (09:45)
[2018-08-21] MEDS: NYSTATIN/TRIAMCINOLONE TOPICAL CREAM 15 GM TUBE TP SCH ×2 (09:45→21:59)
[2018-08-21] MEDS: POLYETHYLENE GLYCOL 3350 119 GM BTL PO SCH ×2 (09:45→22:00)
--- NOTE | 2018-08-21 10:26 | CON.PULM ---
Consult Consult Specialty:: PULMONARY Referred by:: Dr. Dumont Reason for Consultation:: r/o LUCIUS/OHS - History of Present Illness Chief Complaint: s/p fall History of Present Illness: 73yo female with h/o DM, hyperlipidemia, LV diastolic dysfunction, hypothyroidism, COPD, chronic hypoxic respiratory failure on home O2 wo was admitted after falling. Noted to be volume overloaded and started on diuresis with improvement. Called to see patient as suspicious for LUCIUS/OHS. She has been told that she snorers and has nocturnal awakenings but denies gasping or PND. She does report a dry mouth upon awakening and does experience daytime somnolence. She is a remote smoker, quit in 1981. Her initial bicarb was 35 which has since risen to 44 with the diuresis. - History Source History Provided By: Patient, Medical Record Limitations to Obtaining History: No Limitations - Past Medical History Cardio/Vascular: Yes: CHF, HTN Pulmonary: Yes: COPD, Sleep Apnea Renal/: Yes: Renal Calculi (s/p lithotripsy) Musculoskeletal: Yes: Chronic low back pain Endocrine: Yes: Diabetes Mellitus, Hypothyroidism, Other (morbid obesity) Additional Medical History: MRSA/Pseudomonas in her left foot ulcer that has healed - Past Surgical History Past Surgical History: Yes: Joint Replacement (left knee (partial replacement)) - Alcohol/Substance Use Hx Alcohol Use: No History of Substance Use: reports: None - Smoking History Smoking history: Former smoker Have you smoked in the past 12 months: No Aproximately how many cigarettes per day: 1 If you are a former smoker, when did you quit?: 1981 - Social History Usual Living Arrangement: Other () ADL: Family Assistance 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 History of Recent Travel: No Home Medications - Allergies Allergies/Adverse Reactions: Allergies Allergy/AdvReac Type Severity Reaction Status Date / Time codeine [Codeine] Allergy Verified 08/13/18 19:37 shellfish derived Allergy Verified 08/13/18 19:37 tramadol AdvReac Mild Verified 08/13/18 19:37 - Home Medications Home Medications: Ambulatory Orders Levothyroxine [Synthroid -] 75 mcg PO DAILY 12/11/16 [place]-3 Fatty Acids/Fish Oil [Fish Oil 1,000 mg Softgel] 1 each PO DAILY Simvastatin 40 mg PO HS 12/11/16 Potassium Chloride [K-Dur -] 10 meq PO DAILY tab.ec 12/17/16 Aspirin [ASA -] 81 mg PO DAILY #1 tab.chew 03/05/17 Furosemide [Lasix -] 40 mg PO DAILY tablet 03/05/17 Multivitamins [Multivit ([facility] Formulary)] 1 tab PO DAILY tab 03/05/17 metFORMIN HCL [Glucophage -] 500 mg PO BID 05/25/18 Albuterol 2.5/Ipratropium 0.5 [Duoneb -] 1 amp NEB RTID amp 05/30/18 Acetaminophen [Tylenol] 325 mg PO ASDIR 07/16/18 Nystatin/Triamcinolone Top Cr [Mycolog II Cream -] 1 applic TP BID 07/16/18 Family Disease History - Family Disease History Family Disease History: Heart Disease: Mother ( 90's: CAD/Dementia), CA: Father ( in late 80's: h/o colon ca), Other: Brother (Alive: HTN/DM II) Review of Systems - Review of Systems Constitutional: reports: Weakness. denies: Chills, Fever Eyes: denies: Recent Change in Vision HENT: denies: Nasal Congestion, Throat Pain Neck: denies: Stiffness, Tenderness Cardiovascular: reports: Edema. denies: Chest Pain, Shortness of Breath Respiratory: denies: Cough, Hemoptysis, Wheezing Gastrointestinal: denies: Abdominal Pain, Nausea, Vomiting Genitourinary: denies: Dysuria, Hematuria Neurological: denies: Dizziness, Headache Endocrine: denies: Unexplained Weight Loss Physical Exam Vital Sings: Vital Signs Temperature 98.4 F 08/21/18 09:00 Pulse Rate 82 08/21/18 09:00 Respiratory Rate 20 08/21/18 09:00 Blood Pressure 101/58 L 08/21/18 09:00 O2 Sat by Pulse Oximetry (%) 92 L 08/20/18 22:00 Constitutional: Yes: Calm Eyes: Yes: Conjunctiva Clear, EOM Intact HENT: Yes: Atraumatic, Normocephalic Neck: Yes: Supple, Trachea Midline Cardiovascular: Yes: Regular Rate and Rhythm Respiratory: Yes: Diminished (decreased breath sounds at the bases) ...Clubbing: No Gastrointestinal: Yes: Normal Bowel Sounds, Soft, Abdomen, Obese. No: Tenderness Edema: Yes Labs: CBC, BMP 08/19/18 07:30 08/21/18 06:50 Imaging - Results Chest X-ray: Report Reviewed, Image Reviewed (no infiltrates) Problem List - Problems (1) Acute on chronic diastolic (congestive) heart failure Code(s): I50.33 - ACUTE ON CHRONIC DIASTOLIC (CONGESTIVE) HEART FAILURE (2) Volume overload Code(s): E87.70 - FLUID OVERLOAD, UNSPECIFIED (3) Pulmonary HTN Code(s): I27.20 - PULMONARY HYPERTENSION, UNSPECIFIED Assessment/Plan Acute on Chronic Diastolic Heart Failure Pulmonary HTN Volume Overload Chronic Hypoxic Respirtory Failure COPD Hyperlipidemia Hypothyroidism Likely LUCIUS/OHS - continue lasix - monitor urine output, creatinine - daily weights - O2 to keep Spo2 >90% - will need to repeat echocardiogram when euvolemic as outpt to reassess RVSP - will also need ABG when euvolemic and compensated to assess her baseline pCO2 - outpt PFTs and PSG - DVT prophylaxis Thank you for this consult Deon Hull MD
--- NOTE | 2018-08-21 11:51 | PN ---
Progress Note (short form) - Note Progress Note: s: no chest pain, palps, dyspnea. edema improved Current Medications Generic Name Dose Route Start Last Admin Trade Name Freq PRN Reason Stop Dose Admin Acetaminophen 650 mg 08/14/18 02:28 08/20/18 03:06 Tylenol - PO 650 mg Q6H PRN Administration Fever Or Pain Albuterol/Ipratropium 1 amp 08/14/18 08:00 08/21/18 08:03 Duoneb - NEB 1 amp RTID LISA Administration Aspirin 81 mg 08/14/18 10:00 08/21/18 09:44 Asa - PO 81 mg DAILY LISA Administration Atorvastatin Calcium 20 mg 08/14/18 22:00 08/20/18 22:11 Lipitor - PO 20 mg HS LISA Administration Docusate Sodium 100 mg 08/19/18 11:30 08/21/18 09:45 Colace - PO 100 mg BID LISA Administration Enoxaparin Sodium 40 mg 08/22/18 10:00 Lovenox - SQ DAILY LISA Furosemide 40 mg 08/18/18 14:00 08/21/18 06:10 Lasix Injection - IVPUSH 40 mg TID LISA Administration Insulin Aspart 1 vial 08/14/18 07:00 08/21/18 06:09 Novolog Vial Sliding Scale - SQ 2 units ACHS LISA Administration Protocol Levothyroxine Sodium 75 mcg 08/14/18 07:00 08/21/18 06:10 Synthroid - PO 75 mcg DAILY@0700 LISA Administration Multivitamins/Minerals/Vitamin C 1 tab 08/14/18 10:00 08/21/18 09:45 Tab-A-Vit - PO 1 tab DAILY LISA Administration Nystatin/Triamcinolone Acetonide 1 applic 08/14/18 10:00 08/21/18 09:45 Mycolog Ii Cream - TP 1 applic BID LISA Administration Orgoh-1-Juaq Ethyl Esters 2 gm 08/14/18 10:00 08/21/18 09:44 Lovaza - PO 2 gm BID LISA Administration Polyethylene Glycol 17 gm 08/19/18 11:30 08/21/18 09:45 Miralax (For Daily Use) - PO 17 gm BID LISA Administration Potassium Chloride 20 meq 08/19/18 10:33 08/21/18 09:45 K-Dur - PO 20 meq DAILY LISA Administration Vital Signs Period Temp Pulse Resp BP Sys/Donohue Pulse Ox Last 24 Hr 98.0 F-98.5 F 76-86 19-20 100-125/58-70 92 nad no jvd rrr s1s2 no mrg cta bl nl eff aaox3 1+le edema bl abd nt nd pos bs CBC, BMP 08/19/18 07:30 08/21/18 06:50 ecg: sr, nl intervals, no ischemic changes CXR: no sig chf Echo 10/2016: tds; low nl lvef, nl rv, mild lae, mod tr, rvsp 40-50 Echo 02/2016: suboptimal. grossly nl lv size. Mild-mod LV dysfunction. RV not well seen. Mild ARLYN. Mod TR. RVSP 40-50. Small effusion < 1 cm. stress MPI 06/08: no ischemic EKG changes. nl perfusion. EF 45%, global. echo 05/2018 tds, mod TR, LV grossly nl size/function, RVSP 68 mmHg CTA chest: patchy consolidations/atelectasis. no PE echo 07/2018 nl LV function, grade II diastolic dysfunction with elevated LA pressure, LA mod dilated, mod TR, PASP at least 68 mmHg Assessment/Plan 73 yo female here with non healing foot wound, redness of le's. acute on chronic diast chf, pulm HTN (WHO 2?): - preserved LVEF (11/07 echo) with no signif valve dysfunction - repeat echo nl LV function with severe pulm HTN - admitted with edema, hypoxia and weight gain - receiving IV lasix 40 bid - 08/18: UOP 3-4L daily (boone). says edema not improving. no sob but laying in bed. bedscale wts only--not accurate for fluid status purposes. renal fxn/lytes stable. increase lasix to 40 iv TID today. - 08/19- continue lasix 40 mg IV TID -08/21: bicarb up slightly from yesterday but pt still with significant le edema (but improving), will cont iv lasix today and f/u labs in AM to determine if need to reduce diuretic - fluid restriction--ok to liberalize to 1500 cc (c/o very dry mouth) - monitor daily weights, Cr, lytes, I/O with diuresis HTN - bp controlled - cont current mgmt HLD - con't home statin regimen anemia - H/H here below prior baseline - per primary team
[2018-08-21 12:25] LABS: ARTERIAL BLOOD GAS pH 7.52 (7.35-7.45)
[2018-08-21 12:31] LABS: ALLENS TEST POSITIVE
[2018-08-21 12:33] LABS: ARTERIAL BLD GAS O2 SATURATION 69.4 % (90-98.9); ARTERIAL BLOOD GAS PO2 36.2 mmHg (70-100)
[2018-08-21 12:35] LABS: ARTERIAL BLOOD GAS BASE EXCESS 17.6 meq/l (-2-2)
--- NOTE | 2018-08-21 13:19 | CONSULT ---
Consult - text type - Consultation Consultation Note: Renal Consult for Metabolic Alkalosis This is a 73 year old woman with hx of COPD on home O2, DM, HLD, HF with LV diastolic dysfunction presented from home s/p fall and found to have CHF and now with development of worsening metabolic alkalosis in setting of IV diuresis. Pt is awake and alert and reports feeling better. On NC O2. No chest pain, cough, fever, chills, N/V/D. No lightheadedness. Making a lot of urine. Legs remain swollen. PMhx: as above Allergies: Codine, Tramadol Family Hx: NC Social Hx: No T/A/D ROS: as per HPI, all other pertinent ros negative Home Medications Medication Instructions Recorded Levothyroxine [Synthroid -] 75 mcg PO DAILY 12/11/16 [place]-3 Fatty Acids/Fish Oil [Fish 1 each PO DAILY 12/11/16 Oil 1,000 mg Softgel] Simvastatin 40 mg PO HS 12/11/16 Potassium Chloride [K-Dur -] 10 meq PO DAILY tab.ec 12/17/16 Aspirin [ASA -] 81 mg PO DAILY #1 tab.chew 03/05/17 Furosemide [Lasix -] 40 mg PO DAILY tablet 03/05/17 Multivitamins [Multivit ([facility] 1 tab PO DAILY tab 03/05/17 Formulary)] metFORMIN HCL [Glucophage -] 500 mg PO BID 05/25/18 Albuterol 2.5/Ipratropium 0.5 1 amp NEB RTID amp 05/30/18 [Duoneb -] Acetaminophen [Tylenol] 325 mg PO ASDIR 07/16/18 Nystatin/Triamcinolone Top Cr 1 applic TP BID 07/16/18 [Mycolog II Cream -] Vital Signs Temperature 98.4 F 08/21/18 09:00 Pulse Rate 82 08/21/18 09:00 Respiratory Rate 20 08/21/18 09:00 Blood Pressure 101/58 L 08/21/18 09:00 O2 Sat by Pulse Oximetry (%) 92 L 08/21/18 09:00 Intake & Output 08/18/18 08/19/18 08/20/18 08/21/18 23:59 23:59 23:59 23:59 Intake Total 650 900 675 120 Output Total 3000 3400 2000 3200 Balance -7860 -4201 -4683 -0240 Weight 139.508 kg 138.572 kg 137.495 kg NAD awake and alert neck supple, no JVD RRR Dec BS, mild rales soft, obese, NT/ND ++ edema in LE CBC, BMP 08/19/18 07:30 08/21/18 06:50 Current Medications Acetaminophen (Tylenol -) 650 mg PO Q6H PRN PRN Reason: Fever Or Pain Last Admin: 08/20/18 03:06 Dose: 650 mg Albuterol/Ipratropium (Duoneb -) 1 amp NEB RTID [facility] TO [facility] Last Admin: 08/21/18 08:03 Dose: 1 amp Aspirin (Asa -) 81 mg PO DAILY [facility] Last Admin: 08/21/18 09:44 Dose: 81 mg Atorvastatin Calcium (Lipitor -) 20 mg PO HS [facility] Last Admin: 08/20/18 22:11 Dose: 20 mg Docusate Sodium (Colace -) 100 mg PO BID [facility] Last Admin: 08/21/18 09:45 Dose: 100 mg Enoxaparin Sodium (Lovenox -) 40 mg SQ DAILY [facility] Furosemide (Lasix Injection -) 40 mg IVPUSH TID [facility] Last Admin: 08/21/18 06:10 Dose: 40 mg Insulin Aspart (Novolog Vial Sliding Scale -) 1 vial SQ ACHS [facility]; Protocol Last Admin: 08/21/18 12:14 Dose: 2 units Levothyroxine Sodium (Synthroid -) 75 mcg PO DAILY@0700 [facility] Last Admin: 08/21/18 06:10 Dose: 75 mcg Multivitamins/Minerals/Vitamin C (Tab-A-Vit -) 1 tab PO DAILY [facility] Last Admin: 08/21/18 09:45 Dose: 1 tab Nystatin/Triamcinolone Acetonide (Mycolog Ii Cream -) 1 applic TP BID [facility] Last Admin: 08/21/18 09:45 Dose: 1 applic Xmbtr-[id number] Ethyl Esters (Lovaza -) 2 gm PO BID [facility] Last Admin: 08/21/18 09:44 Dose: 2 gm Polyethylene Glycol (Miralax (For Daily Use) -) 17 gm PO BID [facility] Last Admin: 08/21/18 09:45 Dose: 17 gm Potassium Chloride (K-Dur -) 20 meq PO DAILY [facility] Last Admin: 08/21/18 09:45 Dose: 20 meq 73 year old woman with hx of COPD on home O2, DM, HLD, HF with LV diastolic dysfunction presented from home s/p fall and found to have CHF and now with development of worsening metabolic alkalosis in setting of IV diuresis. #Metabolic alkalosis in setting of IV diuresis with Respiratory acidosis #CHF exacerbation #COPD #DM #Hyperlipidmeia #Anemia Pt with ph of 7.52 on todays abg but also has a component of respiratory acidosis with a COPD hx so would be cautious with agents such as diamox as it could potentially cause an significant acidosis. Would decrease the frequency of Lasix from TID to BID. Can also consider the addition of a potassium sparing diuretic such as aladctone if additional diuresis is needed. Supplement K with goal ~4 Trend serum bicarb daily, repeat abg if bicarb > 50. Continue supplemental O2 as needed as well Iron studies for anemia are pending Thank you Will follow Freddy Hooks DO
[2018-08-21] MEDS ORDERED: MAGNESIUM SULF 50% (8.12 MEQ/2 ML-1 GM VIAL) IVPB ONE (13:28)
[2018-08-21] MEDS ORDERED: INSULIN (NOVOLOG) ASPART 100 UNITS/ML 10ML VIAL ONE (21:49)
[2018-08-21] MEDS: ATORVASTATIN CA 20 MG TABLET (FP) PO SCH (21:50)
[2018-08-22 04:15] LABS: SERUM IRON SATURATION 6 % (15-55); TOTAL IRON BINDING CAPACITY 325 ug/dL (250-450); UIBC 305 ug/dL (118-369)
[2018-08-22] MEDS: LEVOTHYROXINE NA 75 MCG TABLET (FP) PO SCH (06:01)
[2018-08-22] MEDS: INSULIN SLIDING SCALE (NOVOLOG) 1 VIAL SQ SCH ×4 (06:01→21:42)
[2018-08-22] MEDS ORDERED: INSULIN (NOVOLOG) ASPART 100 UNITS/ML 10ML VIAL ONE ×3 (06:35→21:40)
[2018-08-22 08:19] LABS: ANION GAP 5 MMOL/L (8-16); BLOOD UREA NITROGEN 19 mg/dL (7-18); CALCIUM 7.4 mg/dL (8.5-10.1); CHLORIDE 95 mmol/L (98-107); CO2 41 mmol/L (21-32); CREATININE 0.8 mg/dL (0.55-1.3); GLUCOSE,RANDOM 171 mg/dL (74-106); PHOSPHOROUS 4.2 mg/dL (2.5-4.9); POTASSIUM 3.8 mmol/L (3.5-5.1); SODIUM 141 mmol/L (136-145)
[2018-08-22] MEDS: ALBUTEROL SO4 2.5/IPRATROPIUM 0.5 INH SOL 3 ML VIAL.NEB. NEB SCH (08:44)
--- NOTE | 2018-08-22 09:10 | PN ---
Teaching Attending Note Name of Resident: Michel Alcantar ATTENDING PHYSICIAN STATEMENT I saw and evaluated the patient. I reviewed the resident's note and discussed the case with the resident. I agree with the resident's findings and plan as documented. SUBJECTIVE: OBJECTIVE: Vital Signs Temperature 97.8 F 08/22/18 06:00 Pulse Rate 84 08/22/18 06:00 Respiratory Rate 20 08/21/18 21:22 Blood Pressure 109/57 L 08/22/18 06:00 O2 Sat by Pulse Oximetry (%) 90 L 08/21/18 21:00 Elderly F not in distress c/o lower extremity swelling HEENT: Moist + anemia, PERRLA EOMI NECK:No JVd No Bruit CHEST:CTA B/L CVS:S1S2 R no m/g/r ABD:No distention, non tender Bs EXT:++ B/L edema feet, no calf tenderness BUILDING CONSTRUCTION INSPECTOR:AOx3 non focal CBC, BMP 08/19/18 07:30 08/22/18 07:00 Active Medications Acetaminophen (Tylenol -) 650 mg PO Q6H PRN PRN Reason: Fever Or Pain Last Admin: 08/20/18 03:06 Dose: 650 mg Albuterol/Ipratropium (Duoneb -) 1 amp NEB RTID [facility] Last Admin: 08/22/18 08:44 Dose: 1 amp Aspirin (Asa -) 81 mg PO DAILY [facility] Last Admin: 08/21/18 09:44 Dose: 81 mg Atorvastatin Calcium (Lipitor -) 20 mg PO HS [facility] Last Admin: 08/21/18 21:50 Dose: 20 mg Docusate Sodium (Colace -) 100 mg PO BID [facility] Last Admin: 08/21/18 21:50 Dose: 100 mg Enoxaparin Sodium (Lovenox -) 40 mg SQ DAILY LISA Furosemide (Lasix Injection -) 40 mg IVPUSH BID [facility] Last Admin: 08/21/18 21:50 Dose: 40 mg Insulin Aspart (Novolog Vial Sliding Scale -) 1 vial SQ ACHS [facility]; Protocol Last Admin: 08/22/18 06:01 Dose: 2 units Levothyroxine Sodium (Synthroid -) 75 mcg PO DAILY@0700 [facility] Last Admin: 08/22/18 06:01 Dose: 75 mcg Multivitamins/Minerals/Vitamin C (Tab-A-Vit -) 1 tab PO DAILY [facility] Last Admin: 08/21/18 09:45 Dose: 1 tab Nystatin/Triamcinolone Acetonide (Mycolog Ii Cream -) 1 applic TP BID [facility] Last Admin: 08/21/18 21:59 Dose: 1 applic Lsbir-5-[id number] Ethyl Esters (Lovaza -) 2 gm PO BID [facility] Last Admin: 08/21/18 21:50 Dose: 2 gm Polyethylene Glycol (Miralax (For Daily Use) -) 17 gm PO BID [facility] Last Admin: 08/21/18 22:00 Dose: 17 gm Potassium Chloride (K-Dur -) 20 meq PO BID [facility] Last Admin: 08/21/18 21:50 Dose: 20 meq A/Plan; 73 yrs olds morbidly obese F with H/O T2DM, secondary Pulmonary HTN, Rt sided HF Hypothyroidism, , COPD on home O2, Dyslipedemia, admitted with mechanical fall after discharged from [facility] to home since previous hospitalization accumulated almost 50 Lbs with worsening LE swelling. Plan; Case is discussed with Cardiology , Nephrology and Pumonary; Patient can be transferred to [facility] on Po Lasix, needs alternate day labs to monitor diuresis, Patient has KRISTEN also H/O hemorrhoids will discuss with patient if she has any CORPORATE TRAVEL COORDINATOR bleed or colonoscopy Problem List - Problems (1) Acute decompensated heart failure Assessment/Plan: Patient has H/O Pulmonary HTN, low normal EF last ECHO , mod TR, LV grossly nl size/function, RVSP 68 mmHg possibility of Rt sided HF as ;LUngs are clear + JVD and LE swelling never, possibility of LUCIUS or Obesity Hypoventilation syndrome will discuss with for more information, mean time contraction alkalosis high HCO3 cont IV 40 mg TID lasix and F/U Cardiology recommendations. Code(s): I50.9 - HEART FAILURE, UNSPECIFIED (2) Hypoxia Assessment/Plan: cont O2 target sPO2 90% pulmonary input appreciated will F/U recommondations. Code(s): R09.02 - HYPOXEMIA (3) Anemia Assessment/Plan: KRISTEN H/O Hemorrhoids. add Po Feso4 needs GI and CORPORATE TRAVEL COORDINATOR referral Code(s): D64.9 - ANEMIA, UNSPECIFIED Qualifiers: Anemia type: unspecified type Qualified Code(s): D64.9 - Anemia, unspecified (4) Diabetes Assessment/Plan: Optimize Glycemic control Code(s): E11.9 - TYPE 2 DIABETES MELLITUS WITHOUT COMPLICATIONS Qualifiers: Diabetes mellitus type: type 2 Diabetes mellitus remote computer terminal operator insulin use: without jail use Diabetes mellitus complication status: with skin complications Diabetes mellitus complication detail: with foot ulcer Qualified Code(s): E11.621 - Type 2 diabetes mellitus with foot ulcer; L97.509 - Non-pressure chronic ulcer of other part of unspecified foot with unspecified severity (5) HTN (hypertension) Assessment/Plan: Cont all home meds Code(s): I10 - ESSENTIAL (PRIMARY) HYPERTENSION (6) HLD (hyperlipidemia) Assessment/Plan: Cont Statin Code(s): E78.5 - HYPERLIPIDEMIA, UNSPECIFIED (7) Morbid obesity with BMI of 50.0-59.9, adult Assessment/Plan: Nutrition consult, educate wt management. Code(s): E66.01 - MORBID (SEVERE) OBESITY DUE TO EXCESS CALORIES; Z68.43 - BODY MASS INDEX (BMI) 50-59.9, ADULT (8) Pulmonary HTN Assessment/Plan: Evaluted by Pulmonary need out patient w/u for LUCIUS and PFTS Code(s): I27.20 - PULMONARY HYPERTENSION, UNSPECIFIED (9) COPD (chronic obstructive pulmonary disease) Assessment/Plan: Sable cont current management. Code(s): J44.9 - CHRONIC OBSTRUCTIVE PULMONARY DISEASE, UNSPECIFIED
[2018-08-22] MEDS ORDERED: PT OWN MED DRAWER 7, Y5N ONE (09:13)
[2018-08-22] MEDS: OMEGA-3 ACID ETHYL ESTERS (FATTY-ACIDS) 1 GM CAPSULE (FP) PO SCH ×2 (09:15→21:41)
[2018-08-22] MEDS: DOCUSATE SODIUM 100 MG CAPSULE (FP) PO SCH ×2 (09:16→21:42)
[2018-08-22] MEDS: ENOXAPARIN NA (PORCINE) 40 MG/0.4 ML DISP.SYRIN SQ SCH (09:16)
[2018-08-22] MEDS: POTASSIUM CHLORIDE TABS 20 MEQ TABLET.ER (FP) PO SCH ×2 (09:16→21:42)
[2018-08-22] MEDS: MULTIVITAMINS (DAILY MVI) TABLET (FP) PO SCH (09:16)
[2018-08-22] MEDS: ASPIRIN 81 MG CHEWABLE TABLETS PO SCH (09:16)
[2018-08-22] MEDS: FUROSEMIDE 40 MG/4 ML INJECTABLE VIAL IVPUSH SCH ×2 (09:16→21:42)
[2018-08-22] MEDS: POLYETHYLENE GLYCOL 3350 119 GM BTL PO SCH ×3 (09:19→21:55)
[2018-08-22] MEDS: NYSTATIN/TRIAMCINOLONE TOPICAL CREAM 15 GM TUBE TP SCH ×2 (11:13→21:47)
[2018-08-22] MEDS ORDERED: LIDOCAINE HCL 2% JELLY 10 ML CARTRIDGE PR ONE (11:21)
[2018-08-22] MEDS ORDERED: ACETAMINOPHEN 1000 MG/100 ML VIAL (NON FORMULARY) IVPB ONE (11:22)
--- NOTE | 2018-08-22 11:56 | PN ---
Progress Note (short form) - Note Progress Note: s: no chest pain, palps, dyspnea. edema improved Current Medications Generic Name Dose Route Start Last Admin Trade Name Freq PRN Reason Stop Dose Admin Acetaminophen 650 mg 08/14/18 02:28 08/20/18 03:06 Tylenol - PO 650 mg Q6H PRN Administration Fever Or Pain Aspirin 81 mg 08/14/18 10:00 08/22/18 09:16 Asa - PO 81 mg DAILY LISA Administration Atorvastatin Calcium 20 mg 08/14/18 22:00 08/21/18 21:50 Lipitor - PO 20 mg HS LISA Administration Docusate Sodium 100 mg 08/19/18 11:30 08/22/18 09:16 Colace - PO 100 mg BID LISA Administration Enoxaparin Sodium 40 mg 08/22/18 10:00 08/22/18 09:16 Lovenox - SQ 40 mg DAILY LISA Administration Furosemide 40 mg 08/21/18 22:00 08/22/18 09:16 Lasix Injection - IVPUSH 40 mg BID LISA Administration Hydrocortisone 1 applic 08/22/18 11:30 Anusol 2.5% Hc Cream - ME DAILY LISA Insulin Aspart 1 vial 08/14/18 07:00 08/22/18 11:24 Novolog Vial Sliding Scale - SQ 2 units ACHS LISA Administration Protocol Levothyroxine Sodium 75 mcg 08/14/18 07:00 08/22/18 06:01 Synthroid - PO 75 mcg DAILY@0700 LISA Administration Multivitamins/Minerals/Vitamin C 1 tab 08/14/18 10:00 08/22/18 09:16 Tab-A-Vit - PO 1 tab DAILY LISA Administration Nystatin/Triamcinolone Acetonide 1 applic 08/14/18 10:00 08/22/18 11:13 Mycolog Ii Cream - TP 1 applic BID LISA Administration Azwmh-4-Axrj Ethyl Esters 2 gm 08/14/18 10:00 08/22/18 09:15 Lovaza - PO 2 gm BID LISA Administration Polyethylene Glycol 17 gm 08/19/18 11:30 08/22/18 09:19 Miralax (For Daily Use) - PO 17 gm BID LISA Administration Potassium Chloride 20 meq 08/21/18 22:00 08/22/18 09:16 K-Dur - PO 20 meq BID LISA Administration Vital Signs Period Temp Pulse Resp BP Sys/Donohue Pulse Ox Last 24 Hr 97.8 F-98.8 F 84-91 19-20 107-132/57-70 90 nad no jvd rrr s1s2 no mrg cta bl nl eff aaox3 trace edema bl abd nt nd pos bs CBC, BMP 08/19/18 07:30 08/22/18 07:00 ecg: sr, nl intervals, no ischemic changes CXR: no sig chf Echo 10/2016: tds; low nl lvef, nl rv, mild lae, mod tr, rvsp 40-50 Echo 02/2016: suboptimal. grossly nl lv size. Mild-mod LV dysfunction. RV not well seen. Mild ARLYN. Mod TR. RVSP 40-50. Small effusion < 1 cm. stress MPI 06/08: no ischemic EKG changes. nl perfusion. EF 45%, global. echo 05/2018 tds, mod TR, LV grossly nl size/function, RVSP 68 mmHg CTA chest: patchy consolidations/atelectasis. no PE echo 07/2018 nl LV function, grade II diastolic dysfunction with elevated LA pressure, LA mod dilated, mod TR, PASP at least 68 mmHg Assessment/Plan 73 yo female here with non healing foot wound, redness of le's. acute on chronic diast chf, pulm HTN (WHO 2?): - preserved LVEF (11/07 echo) with no signif valve dysfunction - repeat echo nl LV function with severe pulm HTN - admitted with edema, hypoxia and weight gain - receiving IV lasix 40 bid - 08/18: UOP 3-4L daily (boone). says edema not improving. no sob but laying in bed. bedscale wts only--not accurate for fluid status purposes. renal fxn/lytes stable. increase lasix to 40 iv TID today. - 08/19- continue lasix 40 mg IV TID -08/21: bicarb up slightly from yesterday but pt still with significant le edema (but improving), will cont iv lasix today and f/u labs in AM to determine if need to reduce diuretic -08/22: Cr/lytes stable, wt down. Cont iv lasix for now. - monitor daily weights, Cr, lytes, I/O with diuresis HTN - bp controlled - cont current mgmt HLD - con't home statin regimen anemia - H/H here below prior baseline - per primary team
--- NOTE | 2018-08-22 12:49 | DS ---
Physical Exam: SUBJECTIVE: Patient seen and examined OBJECTIVE: Vital Signs Period Temp Pulse Resp BP Sys/Donohue Pulse Ox Last 24 Hr 97.8 F-98.8 F 84-91 19-20 107-132/57-70 90 PHYSICAL EXAM GENERAL: The patient is awake, alert, and fully oriented, in no acute distress. HEAD: Normal with no signs of trauma. EYES: PERRL, extraocular movements intact, sclera anicteric, conjunctiva clear. ENT: Ears normal, nares patent, oropharynx clear without exudates, moist mucous membranes. NECK: Trachea midline, full range of motion, supple. LUNGS: Breath sounds equal, clear to auscultation bilaterally, no wheezes, no crackles, no accessory muscle use. HEART: Regular rate and rhythm, S1, S2 without murmur, rub or gallop. ABDOMEN: Soft, nontender, nondistended, normoactive bowel sounds, no guarding, no rebound, no hepatosplenomegaly, no masses. EXTREMITIES: 2+ pulses, warm, well-perfused, no edema. NEUROLOGICAL: Cranial nerves II through XII grossly intact. Normal speech, gait not observed. PSYCH: Normal mood, normal affect. SKIN: Warm, dry, normal turgor, no rashes or lesions noted. LABS Laboratory Results - last 24 hr 08/21/18 08/21/18 08/21/18 06:50 16:47 20:42 Sodium Potassium Chloride Carbon Dioxide Anion Gap BUN Creatinine Creat Clearance w eGFR POC Glucometer 158 209 Random Glucose Calcium Phosphorus Magnesium Iron 20 L TIBC 325 Iron Saturation 6 L Stool Occult Blood 08/22/18 08/22/18 08/22/18 05:55 07:00 07:00 Sodium 141 Potassium 3.8 Chloride 95 L Carbon Dioxide 41 H Anion Gap 5 L BUN 19 H Creatinine 0.8 Creat Clearance w eGFR > 60 POC Glucometer 168 Random Glucose 171 H Calcium 7.4 L Phosphorus 4.2 Magnesium 2.0 Iron TIBC Iron Saturation Stool Occult Blood Negative 08/22/18 11:23 Sodium Potassium Chloride Carbon Dioxide Anion Gap BUN Creatinine Creat Clearance w eGFR POC Glucometer 177 Random Glucose Calcium Phosphorus Magnesium Iron TIBC Iron Saturation Stool Occult Blood HOSPITAL COURSE: Patient is a 73 year old female with past medical history of diastolic CHF, HLD, NIDDM, morbid obesity, hypothyroidism and COPD (O2-dependent ), presented to the ED with bilateral lower leg pain and left hip pain after a fall. Patient was admitted 2 months ago for Right foot cellulitis and underwent excision and debridement. She was sent to [facility] to continue with rehab. As per patient, she would walk about 30 feet daily. Yesterday, she was discharged from [facility] on a wheelchair. At home, as patient was trying to transfer from the wheelchair to the bed, she lost her balance and fell down on the floor, on a sitting position with her legs folded behind her. She denies any head trauma or LOC. Patient could not stand up on her own and had to call 911. Patient reports bilateral lower leg pain and left hip pain. IN hospital was found to have b/l pitting edema and pt states that she has gained 50 pounds over 2 months. Cardiology and nephrology was consulted. Pt was started on IV lasix and it was increased to 40 mg IV tid. Pt had good diuresis with IV lasix and pt weight decreased from 300 to 290. But pt bicarb started to increase to IV lasix so her dose was cut down to 40 bid. Now pt is feeling good her swelling in legs has decreased significantly. Pt never had trouble in breathing. ECHO was also done in this admission. As pt has gained this weight over a long period of time and as per pt she was ordering a food from outside everday this gain in weight could be from increase in BMI with fluid retention. Now pt feels good, states legs look better, breathing is good. Pt is discharged in stable condition to retirement Follow up with your pcp with in one week Follow up with obstetrical nurse Dr Day and cdl instructor Dr dent with in one week We have started you on Lasix 40 mg twice a day orally We have also increased your potassium pill to 20 meq daily. Please get your BMP blood work done ever 2-3 days. Check your weight daily. Eat low salt and low cholesterol diet. Keep free water intake below 1500 ml. Keep legs elevated when you are sitting or lying in bed by placing pillow under the legs. Change position at least every 2 hourly. Take your laxatives as required. avoid constipation. Follow healthy life style You are using a 4 L of oxygen during sitting. If you develop any new symptoms or shortness of breath, chest pain please contact doctor or go to hospital Date of Admission:08/15/18 Date of Discharge: 08/22/18 Minutes to complete discharge: 45 Discharge Summary Reason For Visit: HYPOXIA PAIN OF LEFT LEG FALL Current Active Problems Acute decompensated heart failure (Acute) Acute on chronic diastolic (congestive) heart failure (Acute) CKD (chronic kidney disease) stage 3, GFR 30-59 ml/min (Acute) Fall (Acute) Hypoxia (Acute) Left hip pain (Acute) Left knee pain (Acute) Morbid obesity with BMI of 50.0-59.9, adult (Acute) Right knee pain (Acute) Volume overload (Acute) Condition: Stable - Instructions Diet, Activity, Other Instructions: Follow up with your pcp with in one week Follow up with obstetrical nurse Dr Day and cdl instructor Dr dent with in one week We have started you on Lasix 40 mg twice a day orally We have also increased your potassium pill to 20 meq daily. Please get your BMP blood work done ever 2-3 days. Check your weight daily. Eat low salt and low cholesterol diet. Keep free water intake below 1500 ml. Keep legs elevated when you are sitting or lying in bed by placing pillow under the legs. Change position at least every 2 hourly. Take your laxatives as required. avoid constipation. Follow healthy life style You are using a 4 L of oxygen during sitting. If you develop any new symptoms or shortness of breath, chest pain please contact doctor or go to hospital Referrals: Jarret Day MD [Staff Physician] - 1 Week Freddy Dent MD [Staff Physician] - 1 Week Alirio Garcia MD [Staff Physician] - 1 Week Disposition: [facility] - Home Medications Comprehensive Discharge Medication List: Ambulatory Orders Levothyroxine [Synthroid -] 75 mcg PO DAILY 12/11/16 [place]-3 Fatty Acids/Fish Oil [Fish Oil 1,000 mg Softgel] 1 each PO DAILY Simvastatin 40 mg PO HS 12/11/16 Aspirin [ASA -] 81 mg PO DAILY #1 tab.chew 03/05/17 Multivitamins [Multivit ([facility] Formulary)] 1 tab PO DAILY tab 03/05/17 metFORMIN HCL [Glucophage -] 500 mg PO BID 05/25/18 Albuterol 2.5/Ipratropium 0.5 [Duoneb -] 1 amp NEB RTID amp 05/30/18 Acetaminophen [Tylenol] 325 mg PO ASDIR 07/16/18 Nystatin/Triamcinolone Top Cr [Mycolog II -] 1 applic TP BID 07/16/18 Docusate Sodium [Colace -] 100 mg PO BID capsule 08/22/18 Furosemide [Lasix -] 40 mg PO BID #14 tablet 08/22/18 Hydrocortisone 2.5% Topical Cr [Anusol-Hc -] 1 applic MS DAILY tube 08/22/18 Polyethylene Glycol 3350 [Miralax 119 gm Btl -] 17 gm PO BID bottle 08/22/18 Potassium Chloride [K-Dur -] 20 meq PO DAILY tablet.er 08/22/18 This patient is new to me today: No Emergency Visit: Yes ED Registration Date: 08/15/18 Care time: The patient presented to the Emergency Department on the above date and was hospitalized for further evaluation of their emergent condition. Critical Care patient: No - Discharge Referral Referred to [facility] Med P.C.: No
--- NOTE | 2018-08-22 13:20 | PN ---
Progress Note (short form) - Note Progress Note: Renal follow up for Metabolic alkalosis Pt seen and examined at the bedside awake and alert complains of pain in buttock/rectum denies any sob, cp, abd pain, N/V/D making urine Vital Signs Temperature 97.8 F 08/22/18 06:00 Pulse Rate 84 08/22/18 06:00 Respiratory Rate 20 08/21/18 21:22 Blood Pressure 109/57 L 08/22/18 06:00 O2 Sat by Pulse Oximetry (%) 90 L 08/21/18 21:00 Intake & Output 08/19/18 08/20/18 08/21/18 08/22/18 23:59 23:59 23:59 23:59 Intake Total 900 675 420 Output Total 3400 2000 4300 400 Balance -2500 -1325 -3880 -400 Weight 138.572 kg 137.495 kg 134.853 kg NAD awake and alert neck supple, no JVD RRR Dec BS soft, obese, NT/ND ++ edema in LE CBC, BMP 08/19/18 07:30 08/22/18 07:00 Current Medications Acetaminophen (Tylenol -) 650 mg PO Q6H PRN PRN Reason: Fever Or Pain Last Admin: 08/20/18 03:06 Dose: 650 mg Aspirin (Asa -) 81 mg PO DAILY [facility] Last Admin: 08/22/18 09:16 Dose: 81 mg Atorvastatin Calcium (Lipitor -) 20 mg PO HS [facility] Last Admin: 08/21/18 21:50 Dose: 20 mg Docusate Sodium (Colace -) 100 mg PO BID [facility] Last Admin: 08/22/18 09:16 Dose: 100 mg Enoxaparin Sodium (Lovenox -) 40 mg SQ DAILY [facility] Last Admin: 08/22/18 09:16 Dose: 40 mg Furosemide (Lasix Injection -) 40 mg IVPUSH BID [facility] Last Admin: 08/22/18 09:16 Dose: 40 mg Hydrocortisone (Anusol 2.5% Hc Cream -) 1 applic VT DAILY [facility] Insulin Aspart (Novolog Vial Sliding Scale -) 1 vial SQ ACHS [facility]; Protocol Last Admin: 08/22/18 11:24 Dose: 2 units Levothyroxine Sodium (Synthroid -) 75 mcg PO DAILY@0700 [facility] Last Admin: 08/22/18 06:01 Dose: 75 mcg Multivitamins/Minerals/Vitamin C (Tab-A-Vit -) 1 tab PO DAILY [facility] Last Admin: 08/22/18 09:16 Dose: 1 tab Nystatin/Triamcinolone Acetonide (Mycolog Ii Cream -) 1 applic TP BID [facility] Last Admin: 08/22/18 11:13 Dose: 1 applic Fsynw-3-Cpmu Ethyl Esters (Lovaza -) 2 gm PO BID [facility] Last Admin: 08/22/18 09:15 Dose: 2 gm Polyethylene Glycol (Miralax (For Daily Use) -) 17 gm PO BID [facility] Last Admin: 08/22/18 09:19 Dose: 17 gm Potassium Chloride (K-Dur -) 20 meq PO BID [facility] Last Admin: 08/22/18 09:16 Dose: 20 meq 73 year old woman with hx of COPD on home O2, DM, HLD, HF with LV diastolic dysfunction presented from home s/p fall and found to have CHF and now with development of worsening metabolic alkalosis in setting of IV diuresis. #Metabolic alkalosis in setting of IV diuresis with Respiratory acidosis #CHF exacerbation #COPD #DM #Hyperlipidmeia #Anemia Serum bicarb is improved today Continue lasix as per primary team Would repeat labs in 3-5 days as an outpatient if discharged iron saturation is very low, start iron supplementation, consider GI work up as outpatient if not already done. Thank you Will follow Freddy Hooks DO
[2018-08-22] MEDS: HYDROCORTISONE 2.5% TOPICAL CREAM 30 GM TUBE PR SCH ×2 (14:25→21:47)
--- NOTE | 2018-08-22 14:33 | PN ---
Progress Note (short form) - Note Progress Note: PULMONARY VSS/AFEBRILE Constitutional: Yes: Calm Eyes: Yes: Conjunctiva Clear, EOM Intact HENT: Yes: Atraumatic, Normocephalic Neck: Yes: Supple, Trachea Midline Cardiovascular: Yes: Regular Rate and Rhythm Respiratory: Yes: Diminished (decreased breath sounds at the bases) ...Clubbing: No Gastrointestinal: Yes: Normal Bowel Sounds, Soft, Abdomen, Obese. No: Tenderness Edema: Yes Labs/meds/notes/image: reviewed - Problems (1) Acute on chronic diastolic (congestive) heart failure Code(s): I50.33 - ACUTE ON CHRONIC DIASTOLIC (CONGESTIVE) HEART FAILURE (2) Volume overload Code(s): E87.70 - FLUID OVERLOAD, UNSPECIFIED (3) Pulmonary HTN Code(s): I27.20 - PULMONARY HYPERTENSION, UNSPECIFIED Assessment/Plan Acute on Chronic Diastolic Heart Failure Pulmonary HTN Volume Overload Chronic Hypoxic Respirtory Failure COPD Hyperlipidemia Hypothyroidism Likely LUCIUS/OHS - continue lasix - monitor urine output, creatinine - daily weights - O2 to keep Spo2 >90% - echocardiogram when euvolemic as outpt to reassess RVSP - will also need ABG when euvolemic and compensated to assess her baseline pCO2 - outpt PFTs and PSG - DVT prophylaxis Andrei FABIAN MD
[2018-08-22] MEDS: ALBUTEROL SO4 2.5/IPRATROPIUM 0.5 INH SOL 3 ML VIAL.NEB. NEB PRN (21:30)
[2018-08-22] MEDS: ATORVASTATIN CA 20 MG TABLET (FP) PO SCH (21:42)
[2018-08-23] MEDS: INSULIN SLIDING SCALE (NOVOLOG) 1 VIAL SQ SCH ×4 (06:46→21:37)
[2018-08-23] MEDS: LEVOTHYROXINE NA 75 MCG TABLET (FP) PO SCH (06:46)
[2018-08-23] MEDS ORDERED: INSULIN (NOVOLOG) ASPART 100 UNITS/ML 10ML VIAL ONE ×3 (06:51→21:30)
[2018-08-23 10:22] LABS: BASO % 0.4 % (0-2.0); EOS % 1.9 % (0-4.5); HEMATOCRIT 26.6 % (32.4-45.2); HEMOGLOBIN 7.9 GM/dL (10.7-15.3); LYMPH % 11.8 % (8-40); MCH 22.5 pg (25.7-33.7); MCHC 29.5 g/dl (32.0-36.0); MEAN CELL VOLUME 76.4 fl (80-96); MEAN PLT VOLUME 8.9 fl (7.5-11.1); MONO % 4.6 % (3.8-10.2); NEUT % 81.3 % (42.8-82.8); PLATELET COUNT 239 K/MM3 (134-434); RBC 3.48 M/mm3 (3.60-5.2); RDW 19.6 % (11.6-15.6); WHITE BLOOD COUNT 6.2 K/mm3 (4.0-10.0)
[2018-08-23] MEDS: OMEGA-3 ACID ETHYL ESTERS (FATTY-ACIDS) 1 GM CAPSULE (FP) PO SCH ×2 (10:24→21:34)
[2018-08-23] MEDS: ASPIRIN 81 MG CHEWABLE TABLETS PO SCH (10:24)
[2018-08-23] MEDS: MULTIVITAMINS (DAILY MVI) TABLET (FP) PO SCH (10:24)
[2018-08-23] MEDS: POTASSIUM CHLORIDE TABS 20 MEQ TABLET.ER (FP) PO SCH ×2 (10:24→21:34)
[2018-08-23] MEDS: FUROSEMIDE 40 MG/4 ML INJECTABLE VIAL IVPUSH SCH ×2 (10:27→21:34)
[2018-08-23] MEDS: POLYETHYLENE GLYCOL 3350 119 GM BTL PO SCH ×2 (10:27→21:37)
[2018-08-23] MEDS: ENOXAPARIN NA (PORCINE) 40 MG/0.4 ML DISP.SYRIN SQ SCH (10:27)
[2018-08-23] MEDS: NYSTATIN/TRIAMCINOLONE TOPICAL CREAM 15 GM TUBE TP SCH ×2 (10:30→21:38)
[2018-08-23] MEDS: DOCUSATE SODIUM 100 MG CAPSULE (FP) PO SCH (10:31)
[2018-08-23] MEDS: HYDROCORTISONE 2.5% TOPICAL CREAM 30 GM TUBE PR SCH (10:41)
[2018-08-23 10:55] LABS: ANION GAP 6 MMOL/L (8-16); BLOOD UREA NITROGEN 17 mg/dL (7-18); CHLORIDE 94 mmol/L (98-107); CO2 41 mmol/L (21-32); CREATININE 0.8 mg/dL (0.55-1.3); GLUCOSE,RANDOM 198 mg/dL (74-106); POTASSIUM 3.9 mmol/L (3.5-5.1); SODIUM 140 mmol/L (136-145)
--- NOTE | 2018-08-23 11:40 | PN ---
Progress Note (short form) - Note Progress Note: Resting in NAD. No CP or SOB. Still with rectal discomfort but better. Intake & Output 08/20/18 08/21/18 08/22/18 08/23/18 23:59 23:59 23:59 23:59 Intake Total 675 420 300 585 Output Total 1999 4300 2250 600 Balance -1325 -3880 -1950 -15 Weight 303 lb 2 oz 297 lb 4.8 oz 294 lb 2 oz Last Vital Signs Temp Pulse Resp BP Pulse Ox 98.4 F 82 20 108/56 L 94 L 08/23/18 06:00 08/23/18 06:00 08/23/18 06:00 08/23/18 06:00 08/22/18 21:00 Active Medications Acetaminophen (Tylenol -) 650 mg PO Q6H PRN PRN Reason: Fever Or Pain Last Admin: 08/20/18 03:06 Dose: 650 mg Albuterol/Ipratropium (Duoneb -) 1 amp NEB Q4H PRN PRN Reason: SHORTNESS OF BREATH Last Admin: 08/22/18 21:30 Dose: 1 amp Aspirin (Asa -) 81 mg PO DAILY [facility] Last Admin: 08/23/18 10:24 Dose: 81 mg Atorvastatin Calcium (Lipitor -) 20 mg PO HS [facility] Last Admin: 08/22/18 21:42 Dose: 20 mg Docusate Sodium (Colace -) 100 mg PO BID [facility] Last Admin: 08/23/18 10:31 Dose: Not Given Enoxaparin Sodium (Lovenox -) 40 mg SQ DAILY [facility] Last Admin: 08/23/18 10:27 Dose: 40 mg Furosemide (Lasix Injection -) 40 mg IVPUSH BID [facility] Last Admin: 08/23/18 10:27 Dose: 40 mg Hydrocortisone (Anusol 2.5% Hc Cream -) 1 applic FL DAILY [facility] Last Admin: 08/23/18 10:41 Dose: 1 applic Insulin Aspart (Novolog Vial Sliding Scale -) 1 vial SQ ACHS [facility]; Protocol Last Admin: 08/23/18 06:46 Dose: 2 units Levothyroxine Sodium (Synthroid -) 75 mcg PO DAILY@0700 [facility] Last Admin: 08/23/18 06:46 Dose: 75 mcg Multivitamins/Minerals/Vitamin C (Tab-A-Vit -) 1 tab PO DAILY [facility] Last Admin: 08/23/18 10:24 Dose: 1 tab Nystatin/Triamcinolone Acetonide (Mycolog Ii Cream -) 1 applic TP BID [facility] Last Admin: 08/23/18 10:30 Dose: 1 applic Bhroj-6-Vcyx Ethyl Esters (Lovaza -) 2 gm PO BID [facility] Last Admin: 08/23/18 10:24 Dose: 2 gm Polyethylene Glycol (Miralax (For Daily Use) -) 17 gm PO BID [facility] Last Admin: 08/23/18 10:27 Dose: Not Given Potassium Chloride (K-Dur -) 20 meq PO BID [facility] Last Admin: 08/23/18 10:24 Dose: 20 meq Constitutional: Yes: NAD Eyes: Yes: Conjunctiva Clear, EOM Intact HENT: Yes: Atraumatic, Normocephalic Neck: Yes: Supple, Trachea Midline Cardiovascular: Yes: Regular Rate and Rhythm Respiratory: Yes: Diminished at the bases ...Clubbing: No Gastrointestinal: Yes: Normal Bowel Sounds, Soft, Abdomen, Obese. No: Tenderness Edema: Yes Labs: Laboratory Results - last 24 hr 08/22/18 08/22/18 08/23/18 17:18 21:30 06:44 WBC RBC Hgb Hct MCV MCH MCHC RDW Plt Count MPV Absolute Neuts (auto) Neutrophils % Lymphocytes % Monocytes % Eosinophils % Basophils % Nucleated RBC % Sodium Potassium Chloride Carbon Dioxide Anion Gap BUN Creatinine Creat Clearance w eGFR POC Glucometer 150 208 198 Random Glucose Calcium 08/23/18 08/23/18 08:30 08:30 WBC 6.2 RBC 3.48 L Hgb 7.9 L Hct 26.6 L MCV 76.4 L MCH 22.5 L MCHC 29.5 L RDW 19.6 H Plt Count 239 MPV 8.9 Absolute Neuts (auto) 5.0 Neutrophils % 81.3 Lymphocytes % 11.8 Monocytes % 4.6 Eosinophils % 1.9 Basophils % 0.4 Nucleated RBC % 0 Sodium 140 Potassium 3.9 Chloride 94 L Carbon Dioxide 41 H Anion Gap 6 L BUN 17 Creatinine 0.8 Creat Clearance w eGFR > 60 POC Glucometer Random Glucose 198 H Calcium 8.0 L Problem List - Problems (1) Acute on chronic diastolic (congestive) heart failure Code(s): I50.33 - ACUTE ON CHRONIC DIASTOLIC (CONGESTIVE) HEART FAILURE (2) Volume overload Code(s): E87.70 - FLUID OVERLOAD, UNSPECIFIED (3) Pulmonary HTN Code(s): I27.20 - PULMONARY HYPERTENSION, UNSPECIFIED Assessment/Plan Acute on Chronic Diastolic Heart Failure Pulmonary HTN Volume Overload Chronic Hypoxic Respirtory Failure COPD Hyperlipidemia Hypothyroidism Likely LUCIUS/OHS - continue lasix - monitor urine output, creatinine - daily weights - O2 to keep Spo2 >90% - will need to repeat echocardiogram when euvolemic as outpatient to reassess RVSP - will also need ABG when euvolemic and compensated to assess her baseline pCO2 - outpatient PFTs and PSG - DVT prophylaxis Dr Villanueva
[2018-08-23] MEDS ORDERED: DOCUSATE SODIUM 100 MG CAPSULE (FP) PO PRN (13:26)
--- NOTE | 2018-08-23 13:31 | PN ---
Progress Note, Physician Chief Complaint: No new complaints still c/o proctalgia - Current Medication List Current Medications: Active Medications Acetaminophen (Tylenol -) 650 mg PO Q6H PRN PRN Reason: Fever Or Pain Last Admin: 08/20/18 03:06 Dose: 650 mg Albuterol/Ipratropium (Duoneb -) 1 amp NEB Q4H PRN PRN Reason: SHORTNESS OF BREATH Last Admin: 08/22/18 21:30 Dose: 1 amp Aspirin (Asa -) 81 mg PO DAILY [facility] Last Admin: 08/23/18 10:24 Dose: 81 mg Atorvastatin Calcium (Lipitor -) 20 mg PO HS [facility] Last Admin: 08/22/18 21:42 Dose: 20 mg Docusate Sodium (Colace -) 100 mg PO BID [facility] Last Admin: 08/23/18 10:31 Dose: Not Given Docusate Sodium (Colace -) 100 mg PO BID PRN PRN Reason: CONSTIPATION Enoxaparin Sodium (Lovenox -) 40 mg SQ DAILY [facility] Last Admin: 08/23/18 10:27 Dose: 40 mg Furosemide (Lasix Injection -) 40 mg IVPUSH BID [facility] Last Admin: 08/23/18 10:27 Dose: 40 mg Hydrocortisone (Anusol 2.5% Hc Cream -) 1 applic DE DAILY [facility] Last Admin: 08/23/18 10:41 Dose: 1 applic Insulin Aspart (Novolog Vial Sliding Scale -) 1 vial SQ ACHS [facility]; Protocol Last Admin: 08/23/18 11:55 Dose: 2 units Levothyroxine Sodium (Synthroid -) 75 mcg PO DAILY@0700 [facility] Last Admin: 08/23/18 06:46 Dose: 75 mcg Multivitamins/Minerals/Vitamin C (Tab-A-Vit -) 1 tab PO DAILY [facility] Last Admin: 08/23/18 10:24 Dose: 1 tab Nystatin/Triamcinolone Acetonide (Mycolog Ii Cream -) 1 applic TP BID [facility] Last Admin: 08/23/18 10:30 Dose: 1 applic [id number]-6-Jwvk Ethyl Esters (Lovaza -) 2 gm PO BID [facility] Last Admin: 08/23/18 10:24 Dose: 2 gm Polyethylene Glycol (Miralax (For Daily Use) -) 17 gm PO BID [facility] Last Admin: 08/23/18 10:27 Dose: Not Given Potassium Chloride (K-Dur -) 20 meq PO BID [facility] Last Admin: 08/23/18 10:24 Dose: 20 meq - Objective Vital Signs: Vital Signs Temperature 98.4 F 08/23/18 06:00 Pulse Rate 82 08/23/18 06:00 Respiratory Rate 20 08/23/18 06:00 Blood Pressure 108/56 L 08/23/18 06:00 O2 Sat by Pulse Oximetry (%) 94 L 08/22/18 21:00 Intake & Output Elderly F not in distress c/o lower extremity swelling HEENT: Moist + anemia, PERRLA EOMI NECK:No JVd No Bruit CHEST:CTA B/L CVS:S1S2 R no m/g/r ABD:No distention, non tender Bs EXT:++ B/L edema feet, no calf tenderness [employer]CHITECT:AOx3 non focal Labs: CBC, BMP 08/23/18 08:30 08/23/18 08:30 INR, PTT INR 1.07 (0.83-1.09) 08/13/18 20:54 Problem List - Problems (1) Acute decompensated heart failure Assessment/Plan: Patient has H/O Pulmonary HTN, low normal EF last ECHO , mod TR, LV grossly nl size/function, RVSP 68 mmHg possibility of Rt sided HF as ;LUngs are clear + JVD and LE swelling never, possibility of LUCIUS or Obesity Hypoventilation syndrome will discuss with for more information, mean time contraction alkalosis high HCO3 cont IV 40 mg TID lasix and F/U Cardiology recommendations. Code(s): I50.9 - HEART FAILURE, UNSPECIFIED (2) Hypoxia Assessment/Plan: cont O2 target sPO2 90% pulmonary input appreciated will F/U recommondations. Code(s): R09.02 - HYPOXEMIA (3) Anemia Assessment/Plan: KRISTEN chronic previously offered colonoscopy somehow couldn't got it Code(s): D64.9 - ANEMIA, UNSPECIFIED Qualifiers: Anemia type: unspecified type Qualified Code(s): D64.9 - Anemia, unspecified (4) Diabetes Code(s): E11.9 - TYPE 2 DIABETES MELLITUS WITHOUT COMPLICATIONS Qualifiers: Diabetes mellitus type: type 2 Diabetes mellitus snf insulin use: without snf use Diabetes mellitus complication status: with skin complications Diabetes mellitus complication detail: with foot ulcer Qualified Code(s): E11.621 - Type 2 diabetes mellitus with foot ulcer; L97.509 - Non-pressure chronic ulcer of other part of unspecified foot with unspecified severity (5) HTN (hypertension) Assessment/Plan: Cont all home meds Code(s): I10 - ESSENTIAL (PRIMARY) HYPERTENSION (6) HLD (hyperlipidemia) Assessment/Plan: Cont Statin Code(s): E78.5 - HYPERLIPIDEMIA, UNSPECIFIED (7) Morbid obesity with BMI of 50.0-59.9, adult Assessment/Plan: Nutrition consult, educate wt management. Code(s): E66.01 - MORBID (SEVERE) OBESITY DUE TO EXCESS CALORIES; Z68.43 - BODY MASS INDEX (BMI) 50-59.9, ADULT (8) Pulmonary HTN Assessment/Plan: Evaluted by Pulmonary need out patient w/u for LUCIUS and PFTS Code(s): I27.20 - PULMONARY HYPERTENSION, UNSPECIFIED (9) COPD (chronic obstructive pulmonary disease) Assessment/Plan: Sable cont current management. Code(s): J44.9 - CHRONIC OBSTRUCTIVE PULMONARY DISEASE, UNSPECIFIED
--- NOTE | 2018-08-23 14:02 | PN ---
Progress Note, Physician Chief Complaint: The patient seen and examined in her bed. reportedly does not like to do anything by herself. Daniels catheter in place. History of Present Illness: 73 year old woman with hx of COPD on home O2, DM, HLD, HF with LV diastolic dysfunction presented from home s/p fall and found to have CHF and now with development of worsening metabolic alkalosis in setting of IV diuresis. - Current Medication List Current Medications: Active Medications Acetaminophen (Tylenol -) 650 mg PO Q6H PRN PRN Reason: Fever Or Pain Last Admin: 08/20/18 03:06 Dose: 650 mg Albuterol/Ipratropium (Duoneb -) 1 amp NEB Q4H PRN PRN Reason: SHORTNESS OF BREATH Last Admin: 08/22/18 21:30 Dose: 1 amp Aspirin (Asa -) 81 mg PO DAILY [facility] Last Admin: 08/23/18 10:24 Dose: 81 mg Atorvastatin Calcium (Lipitor -) 20 mg PO HS [facility] Last Admin: 08/22/18 21:42 Dose: 20 mg Docusate Sodium (Colace -) 100 mg PO BID PRN PRN Reason: CONSTIPATION Enoxaparin Sodium (Lovenox -) 40 mg SQ DAILY [facility] Last Admin: 08/23/18 10:27 Dose: 40 mg Furosemide (Lasix Injection -) 40 mg IVPUSH BID [facility] Last Admin: 08/23/18 10:27 Dose: 40 mg Hydrocortisone (Anusol 2.5% Hc Cream -) 1 applic [place] DAILY [facility] Last Admin: 08/23/18 10:41 Dose: 1 applic Insulin Aspart (Novolog Vial Sliding Scale -) 1 vial SQ [facility]; Protocol Last Admin: 08/23/18 11:55 Dose: 2 units Levothyroxine Sodium (Synthroid -) 75 mcg PO DAILY@0700 [facility] Last Admin: 08/23/18 06:46 Dose: 75 mcg Multivitamins/Minerals/Vitamin C (Tab-A-Vit -) 1 tab PO DAILY [facility] Last Admin: 08/23/18 10:24 Dose: 1 tab Nystatin/Triamcinolone Acetonide (Mycolog Ii Cream -) 1 applic TP BID [facility] Last Admin: 08/23/18 10:30 Dose: 1 applic Rpzla-7-Ygoh Ethyl Esters (Lovaza -) 2 gm PO BID [facility] Last Admin: 08/23/18 10:24 Dose: 2 gm Polyethylene Glycol (Miralax (For Daily Use) -) 17 gm PO BID [facility] Last Admin: 08/23/18 10:27 Dose: Not Given Potassium Chloride (K-Dur -) 20 meq PO BID [facility] Last Admin: 08/23/18 10:24 Dose: 20 meq - Objective Vital Signs: Vital Signs Temperature 98.4 F 08/23/18 06:00 Pulse Rate 82 08/23/18 06:00 Respiratory Rate 20 08/23/18 06:00 Blood Pressure 108/56 L 08/23/18 06:00 O2 Sat by Pulse Oximetry (%) 94 L 08/22/18 21:00 Constitutional: Yes: No Distress, Anxious HENT: Yes: Normocephalic Cardiovascular: Yes: Pulse Irregular, S1, S2 Respiratory: Yes: CTA Bilaterally Gastrointestinal: Yes: Normal Bowel Sounds, Soft Genitourinary: Yes: Daniels Present. No: Bladder Distention, CVA Tenderness - Left, CVA Tenderness - Right Edema: No Labs: CBC, BMP 08/23/18 08:30 08/23/18 08:30 INR, PTT INR 1.07 (0.83-1.09) 08/13/18 20:54 Assessment/Plan 73 year old woman with hx of COPD on home O2, DM, HLD, HF with LV diastolic dysfunction presented from home s/p fall and found to have CHF and now with development of worsening metabolic alkalosis in setting of IV diuresis. The Serum Bicarb remains elevated, though better than before. Combination of Acute Metabolo=ic alkalosis and Chronic Respiratory acidosis. Renal functions normal. Should monitor the renal functions periodically. Thank you. Will follow with you. Sol Carolina MD
[2018-08-23] MEDS: ATORVASTATIN CA 20 MG TABLET (FP) PO SCH (21:34)
[2018-08-24] MEDS ORDERED: PT OWN MED DRAWER 7, Y5N ONE (05:49)
[2018-08-24] MEDS: INSULIN SLIDING SCALE (NOVOLOG) 1 VIAL SQ SCH ×4 (06:08→21:50)
[2018-08-24] MEDS: LEVOTHYROXINE NA 75 MCG TABLET (FP) PO SCH (06:08)
[2018-08-24 07:48] LABS: ANION GAP 6 MMOL/L (8-16); BLOOD UREA NITROGEN 23 mg/dL (7-18); CALCIUM 7.5 mg/dL (8.5-10.1); CHLORIDE 97 mmol/L (98-107); CO2 39 mmol/L (21-32); CREATININE 0.9 mg/dL (0.55-1.3); GLUCOSE,RANDOM 190 mg/dL (74-106); SODIUM 142 mmol/L (136-145)
[2018-08-24 07:58] LABS: BASO % 0.6 % (0-2.0); EOS % 3.6 % (0-4.5); HEMATOCRIT 27.5 % (32.4-45.2); HEMOGLOBIN 8.2 GM/dL (10.7-15.3); LYMPH % 14.2 % (8-40); MCH 22.9 pg (25.7-33.7); MCHC 29.7 g/dl (32.0-36.0); MEAN CELL VOLUME 77.1 fl (80-96); MEAN PLT VOLUME 9.2 fl (7.5-11.1); MONO % 4.5 % (3.8-10.2); NEUT % 77.1 % (42.8-82.8); PLATELET COUNT 113 K/MM3 (134-434); RBC 3.56 M/mm3 (3.60-5.2); RDW 19.7 % (11.6-15.6)
[2018-08-24] MEDS: OMEGA-3 ACID ETHYL ESTERS (FATTY-ACIDS) 1 GM CAPSULE (FP) PO SCH ×2 (09:49→21:47)
[2018-08-24] MEDS: ENOXAPARIN NA (PORCINE) 40 MG/0.4 ML DISP.SYRIN SQ SCH (09:49)
[2018-08-24] MEDS: POTASSIUM CHLORIDE TABS 20 MEQ TABLET.ER (FP) PO SCH ×2 (09:49→21:47)
[2018-08-24] MEDS: FUROSEMIDE 40 MG/4 ML INJECTABLE VIAL IVPUSH SCH ×2 (09:49→21:47)
[2018-08-24] MEDS: ASPIRIN 81 MG CHEWABLE TABLETS PO SCH (09:49)
[2018-08-24] MEDS: MULTIVITAMINS (DAILY MVI) TABLET (FP) PO SCH (09:49)
[2018-08-24] MEDS: POLYETHYLENE GLYCOL 3350 119 GM BTL PO SCH ×2 (09:50→21:47)
[2018-08-24] MEDS: NYSTATIN/TRIAMCINOLONE TOPICAL CREAM 15 GM TUBE TP SCH ×2 (09:50→21:50)
[2018-08-24] MEDS: HYDROCORTISONE 2.5% TOPICAL CREAM 30 GM TUBE PR SCH (09:51)
--- NOTE | 2018-08-24 10:13 | PN ---
Progress Note, Physician Chief Complaint: No new complaints still c/o proctalgia - Current Medication List Current Medications: Active Medications Acetaminophen (Tylenol -) 650 mg PO Q6H PRN PRN Reason: Fever Or Pain Last Admin: 08/20/18 03:06 Dose: 650 mg Albuterol/Ipratropium (Duoneb -) 1 amp NEB Q4H PRN PRN Reason: SHORTNESS OF BREATH Last Admin: 08/22/18 21:30 Dose: 1 amp Aspirin (Asa -) 81 mg PO DAILY [facility] Last Admin: 08/24/18 09:49 Dose: 81 mg Atorvastatin Calcium (Lipitor -) 20 mg PO HS [facility] Last Admin: 08/23/18 21:34 Dose: 20 mg Docusate Sodium (Colace -) 100 mg PO BID PRN PRN Reason: CONSTIPATION Enoxaparin Sodium (Lovenox -) 40 mg SQ DAILY [facility] Last Admin: 08/24/18 09:49 Dose: 40 mg Furosemide (Lasix Injection -) 40 mg IVPUSH BID [facility] Last Admin: 08/24/18 09:49 Dose: 40 mg Hydrocortisone (Anusol 2.5% Hc Cream -) 1 applic [place] DAILY [facility] Last Admin: 08/24/18 09:51 Dose: 1 applic Insulin Aspart (Novolog Vial Sliding Scale -) 1 vial SQ ACHS [facility]; Protocol Last Admin: 08/24/18 06:08 Dose: 2 units Levothyroxine Sodium (Synthroid -) 75 mcg PO DAILY@0700 [facility] Last Admin: 08/24/18 06:08 Dose: 75 mcg Multivitamins/Minerals/Vitamin C (Tab-A-Vit -) 1 tab PO DAILY [facility] Last Admin: 08/24/18 09:49 Dose: 1 tab Nystatin/Triamcinolone Acetonide (Mycolog Ii Cream -) 1 applic TP BID [facility] Last Admin: 08/24/18 09:50 Dose: 1 applic [id number]-6-Ucfh Ethyl Esters (Lovaza -) 2 gm PO BID [facility] Last Admin: 08/24/18 09:49 Dose: 2 gm Polyethylene Glycol (Miralax (For Daily Use) -) 17 gm PO BID [facility] Last Admin: 08/24/18 09:50 Dose: Not Given Potassium Chloride (K-Dur -) 20 meq PO BID [facility] Last Admin: 08/24/18 09:49 Dose: 20 meq - Objective Vital Signs: Vital Signs Temperature 98.4 F 08/24/18 06:07 Pulse Rate 85 08/24/18 06:07 Respiratory Rate 18 08/24/18 06:07 Blood Pressure 133/70 08/24/18 06:07 O2 Sat by Pulse Oximetry (%) 94 L 08/23/18 21:00 Elderly F not in distress c/o lower extremity swelling HEENT: Moist + anemia, PERRLA EOMI NECK:No JVd No Bruit CHEST:CTA B/L CVS:S1S2 R no m/g/r ABD:No distention, non tender Bs EXT:++ B/L edema feet, no calf tenderness CHEMIST HELPER:AOx3 non focal Labs: CBC, BMP 08/24/18 06:15 08/24/18 06:15 INR, PTT INR 1.07 (0.83-1.09) 08/13/18 20:54 Problem List - Problems (1) Acute decompensated heart failure Assessment/Plan: Patient has H/O Pulmonary HTN, low normal EF last ECHO , mod TR, LV grossly nl size/function, RVSP 68 mmHg possibility of Rt sided HF as ;LUngs are clear + JVD and LE swelling never, possibility of LUCIUS or Obesity Hypoventilation syndrome will discuss with for more information, mean time contraction alkalosis high HCO3 cont IV 40 mg TID lasix and F/U Cardiology recommendations. Code(s): I50.9 - HEART FAILURE, UNSPECIFIED (2) Hypoxia Assessment/Plan: cont O2 target sPO2 90% pulmonary input appreciated will F/U recommondations. Code(s): R09.02 - HYPOXEMIA (3) Anemia Assessment/Plan: KRISTEN chronic previously offered colonoscopy somehow couldn't got it Code(s): D64.9 - ANEMIA, UNSPECIFIED Qualifiers: Anemia type: unspecified type Qualified Code(s): D64.9 - Anemia, unspecified (4) Diabetes Assessment/Plan: Optimize Glycemic control Code(s): E11.9 - TYPE 2 DIABETES MELLITUS WITHOUT COMPLICATIONS Qualifiers: Diabetes mellitus type: type 2 Diabetes mellitus student records specialist insulin use: without care home use Diabetes mellitus complication status: with skin complications Diabetes mellitus complication detail: with foot ulcer Qualified Code(s): E11.621 - Type 2 diabetes mellitus with foot ulcer; L97.509 - Non-pressure chronic ulcer of other part of unspecified foot with unspecified severity (5) HTN (hypertension) Assessment/Plan: Cont all home meds Code(s): I10 - ESSENTIAL (PRIMARY) HYPERTENSION (6) HLD (hyperlipidemia) Assessment/Plan: Cont Statin Code(s): E78.5 - HYPERLIPIDEMIA, UNSPECIFIED (7) Morbid obesity with BMI of 50.0-59.9, adult Assessment/Plan: Nutrition consult, educate wt management. Code(s): E66.01 - MORBID (SEVERE) OBESITY DUE TO EXCESS CALORIES; Z68.43 - BODY MASS INDEX (BMI) 50-59.9, ADULT (8) Pulmonary HTN Assessment/Plan: Evaluted by Pulmonary need out patient w/u for LUCIUS and PFTS Code(s): I27.20 - PULMONARY HYPERTENSION, UNSPECIFIED (9) COPD (chronic obstructive pulmonary disease) Assessment/Plan: Sable cont current management. Code(s): J44.9 - CHRONIC OBSTRUCTIVE PULMONARY DISEASE, UNSPECIFIED
--- NOTE | 2018-08-24 10:51 | PN ---
Progress Note (short form) - Note Progress Note: Resting in NAD. No CP or SOB. No acute events overnight. Intake & Output 08/21/18 08/22/18 08/23/18 08/24/18 23:59 23:59 23:59 23:59 Intake Total 971 231 2967 80 Output Total 4300 2250 2300 900 Balance -3880 -1950 -950 -820 Weight 303 lb 2 oz 297 lb 4.8 oz 294 lb 2 oz 296 lb Last Vital Signs Temp Pulse Resp BP Pulse Ox 98.4 F 85 18 133/70 94 L 08/24/18 06:07 08/24/18 06:07 08/24/18 06:07 08/24/18 06:07 08/23/18 21:00 Active Medications Acetaminophen (Tylenol -) 650 mg PO Q6H PRN PRN Reason: Fever Or Pain Last Admin: 08/20/18 03:06 Dose: 650 mg Albuterol/Ipratropium (Duoneb -) 1 amp NEB Q4H PRN PRN Reason: SHORTNESS OF BREATH Last Admin: 08/22/18 21:30 Dose: 1 amp Aspirin (Asa -) 81 mg PO DAILY [facility] Last Admin: 08/24/18 09:49 Dose: 81 mg Atorvastatin Calcium (Lipitor -) 20 mg PO HS [facility] Last Admin: 08/23/18 21:34 Dose: 20 mg Docusate Sodium (Colace -) 100 mg PO BID PRN PRN Reason: CONSTIPATION Enoxaparin Sodium (Lovenox -) 40 mg SQ DAILY [facility] Last Admin: 08/24/18 09:49 Dose: 40 mg Furosemide (Lasix Injection -) 40 mg IVPUSH BID [facility] Last Admin: 08/24/18 09:49 Dose: 40 mg Hydrocortisone (Anusol 2.5% Hc Cream -) 1 applic [place] DAILY [facility] Last Admin: 08/24/18 09:51 Dose: 1 applic Insulin Aspart (Novolog Vial Sliding Scale -) 1 vial SQ ACHS [facility]; Protocol Last Admin: 08/24/18 06:08 Dose: 2 units Levothyroxine Sodium (Synthroid -) 75 mcg PO DAILY@0700 [facility] Last Admin: 08/24/18 06:08 Dose: 75 mcg Multivitamins/Minerals/Vitamin C (Tab-A-Vit -) 1 tab PO DAILY [facility] Last Admin: 08/24/18 09:49 Dose: 1 tab Nystatin/Triamcinolone Acetonide (Mycolog Ii Cream -) 1 applic TP BID [facility] Last Admin: 08/24/18 09:50 Dose: 1 applic Pando-6-Tlpg Ethyl Esters (Lovaza -) 2 gm PO BID [facility] Last Admin: 08/24/18 09:49 Dose: 2 gm Polyethylene Glycol (Miralax (For Daily Use) -) 17 gm PO BID [facility] Last Admin: 08/24/18 09:50 Dose: Not Given Potassium Chloride (K-Dur -) 20 meq PO BID [facility] Last Admin: 08/24/18 09:49 Dose: 20 meq Constitutional: Yes: NAD Eyes: Yes: Conjunctiva Clear, EOM Intact HENT: Yes: Atraumatic, Normocephalic Neck: Yes: Supple, Trachea Midline Cardiovascular: Yes: Regular Rate and Rhythm Respiratory: Yes: Diminished at the bases ...Clubbing: No Gastrointestinal: Yes: Normal Bowel Sounds, Soft, Abdomen, Obese. No: Tenderness Edema: Yes Labs: Laboratory Results - last 24 hr 08/23/18 08/23/18 08/23/18 08:30 11:40 16:37 WBC RBC Hgb Hct MCV MCH MCHC RDW MPV Absolute Neuts (auto) Neutrophils % Lymphocytes % Monocytes % Eosinophils % Basophils % Nucleated RBC % Sodium 140 Potassium 3.9 Chloride 94 L Carbon Dioxide 41 H Anion Gap 6 L BUN 17 Creatinine 0.8 Creat Clearance w eGFR > 60 POC Glucometer 185 187 Random Glucose 198 H Calcium 8.0 L 08/23/18 08/24/18 08/24/18 21:32 06:07 06:15 WBC 6.0 RBC 3.56 L Hgb 8.2 L Hct 27.5 L MCV 77.1 L MCH 22.9 L MCHC 29.7 L RDW 19.7 H MPV 9.2 Absolute Neuts (auto) 4.6 Neutrophils % 77.1 Lymphocytes % 14.2 D Monocytes % 4.5 Eosinophils % 3.6 D Basophils % 0.6 Nucleated RBC % 0 Sodium Potassium Chloride Carbon Dioxide Anion Gap BUN Creatinine Creat Clearance w eGFR POC Glucometer 221 179 Random Glucose Calcium 08/24/18 06:15 WBC RBC Hgb Hct MCV MCH MCHC RDW MPV Absolute Neuts (auto) Neutrophils % Lymphocytes % Monocytes % Eosinophils % Basophils % Nucleated RBC % Sodium 142 Potassium 4.0 Chloride 97 L Carbon Dioxide 39 H Anion Gap 6 L BUN 23 H Creatinine 0.9 Creat Clearance w eGFR > 60 POC Glucometer Random Glucose 190 H Calcium 7.5 L Problem List - Problems (1) Acute on chronic diastolic (congestive) heart failure Code(s): I50.33 - ACUTE ON CHRONIC DIASTOLIC (CONGESTIVE) HEART FAILURE (2) Volume overload Code(s): E87.70 - FLUID OVERLOAD, UNSPECIFIED (3) Pulmonary HTN Code(s): I27.20 - PULMONARY HYPERTENSION, UNSPECIFIED Assessment/Plan Acute on Chronic Diastolic Heart Failure Pulmonary HTN Volume Overload Chronic Hypoxic Respirtory Failure COPD Hyperlipidemia Hypothyroidism Likely LUCIUS/OHS - continue lasix - monitor urine output, creatinine - daily weights - O2 to keep Spo2 >90% - will need to repeat echocardiogram when euvolemic as outpatient to reassess RVSP - will also need ABG when euvolemic and compensated to assess her baseline pCO2 - outpatient PFTs and PSG - DVT prophylaxis Dr Villanueva
[2018-08-24] MEDS ORDERED: INSULIN (NOVOLOG) ASPART 100 UNITS/ML 10ML VIAL ONE ×3 (12:05→21:45)
--- NOTE | 2018-08-24 13:06 | PN ---
Progress Note, Physician Chief Complaint: The patient seen and examined in her bed. Daniels catheter in place. No new complaints. History of Present Illness: this is a 73 year old woman with hx of COPD on home O2, DM, HLD, HF with LV diastolic dysfunction presented from home s/p fall and found to have CHF and now with development of worsening metabolic alkalosis in setting of IV diuresis. - Current Medication List Current Medications: Active Medications Acetaminophen (Tylenol -) 650 mg PO Q6H PRN PRN Reason: Fever Or Pain Last Admin: 08/20/18 03:06 Dose: 650 mg Albuterol/Ipratropium (Duoneb -) 1 amp NEB Q4H PRN PRN Reason: SHORTNESS OF BREATH Last Admin: 08/22/18 21:30 Dose: 1 amp Aspirin (Asa -) 81 mg PO DAILY [facility] Last Admin: 08/24/18 09:49 Dose: 81 mg Atorvastatin Calcium (Lipitor -) 20 mg PO HS [facility] Last Admin: 08/23/18 21:34 Dose: 20 mg Docusate Sodium (Colace -) 100 mg PO BID PRN PRN Reason: CONSTIPATION Enoxaparin Sodium (Lovenox -) 40 mg SQ DAILY [facility] Last Admin: 08/24/18 09:49 Dose: 40 mg Furosemide (Lasix Injection -) 40 mg IVPUSH BID [facility] Last Admin: 08/24/18 09:49 Dose: 40 mg Hydrocortisone (Anusol 2.5% Hc Cream -) 1 applic [place] DAILY [facility] Last Admin: 08/24/18 09:51 Dose: 1 applic Insulin Aspart (Novolog Vial Sliding Scale -) 1 vial SQ ACHS [facility]; Protocol Last Admin: 08/24/18 12:08 Dose: 2 units Levothyroxine Sodium (Synthroid -) 75 mcg PO DAILY@0700 [facility] Last Admin: 08/24/18 06:08 Dose: 75 mcg Multivitamins/Minerals/Vitamin C (Tab-A-Vit -) 1 tab PO DAILY [facility] Last Admin: 08/24/18 09:49 Dose: 1 tab Nystatin/Triamcinolone Acetonide (Mycolog Ii Cream -) 1 applic TP BID [facility] Last Admin: 08/24/18 09:50 Dose: 1 applic Fqzgq-3-Jvmh Ethyl Esters (Lovaza -) 2 gm PO BID [facility] Last Admin: 08/24/18 09:49 Dose: 2 gm Polyethylene Glycol (Miralax (For Daily Use) -) 17 gm PO BID [facility] Last Admin: 08/24/18 09:50 Dose: Not Given Potassium Chloride (K-Dur -) 20 meq PO BID [facility] Last Admin: 08/24/18 09:49 Dose: 20 meq - Objective Vital Signs: Vital Signs Temperature 98.4 F 08/24/18 06:07 Pulse Rate 85 08/24/18 06:07 Respiratory Rate 18 08/24/18 06:07 Blood Pressure 133/70 08/24/18 06:07 O2 Sat by Pulse Oximetry (%) 94 L 08/23/18 21:00 Constitutional: Yes: Well Nourished, Anxious, Pallor Eyes: Yes: Conjunctiva Clear HENT: Yes: Normocephalic Neck: Yes: Trachea Midline Cardiovascular: Yes: Regular Rate and Rhythm, S1, S2 Respiratory: Yes: Regular, Diminished, Poor Air Entry Gastrointestinal: Yes: Normal Bowel Sounds, Soft Genitourinary: Yes: Daniels Present. No: CVA Tenderness - Left, CVA Tenderness - Right Edema: Yes Edema: LLE: Trace, RLE: Trace Labs: CBC, BMP 08/24/18 06:15 08/24/18 06:15 INR, PTT INR 1.07 (0.83-1.09) 08/13/18 20:54 Assessment/Plan 73 year old woman with hx of COPD on home O2, DM, HLD, HF with LV diastolic dysfunction presented from home s/p fall and found to have CHF and now with development of worsening metabolic alkalosis in setting of IV diuresis. The Serum Bicarb remains elevated, but slowly improving. Combination of Acute Metabololic alkalosis and Chronic Respiratory acidosis. Renal functions normal. Should monitor the renal functions periodically. Thank you. Will follow with you. Sol Carolina MD
[2018-08-24] MEDS: ATORVASTATIN CA 20 MG TABLET (FP) PO SCH (21:47)
[2018-08-24] MEDS: ALBUTEROL SO4 2.5/IPRATROPIUM 0.5 INH SOL 3 ML VIAL.NEB. NEB PRN (22:10)
[2018-08-25] MEDS: LEVOTHYROXINE NA 75 MCG TABLET (FP) PO SCH (06:10)
[2018-08-25] MEDS: INSULIN SLIDING SCALE (NOVOLOG) 1 VIAL SQ SCH ×4 (06:10→21:52)
[2018-08-25] MEDS: ALBUTEROL SO4 2.5/IPRATROPIUM 0.5 INH SOL 3 ML VIAL.NEB. NEB PRN ×2 (07:05→20:04)
[2018-08-25 07:58] LABS: BASO % 0.5 % (0-2.0); EOS % 2.3 % (0-4.5); HEMATOCRIT 24.9 % (32.4-45.2); HEMOGLOBIN 7.4 GM/dL (10.7-15.3); LYMPH % 19.2 % (8-40); MCH 22.5 pg (25.7-33.7); MCHC 29.5 g/dl (32.0-36.0); MEAN CELL VOLUME 76.2 fl (80-96); MEAN PLT VOLUME 8.6 fl (7.5-11.1); MONO % 6.1 % (3.8-10.2); NEUT % 71.9 % (42.8-82.8); PLATELET COUNT 244 K/MM3 (134-434); RBC 3.27 M/mm3 (3.60-5.2); RDW 19.6 % (11.6-15.6); WHITE BLOOD COUNT 7.3 K/mm3 (4.0-10.0)
[2018-08-25 08:14] LABS: ANION GAP 4 MMOL/L (8-16); BLOOD UREA NITROGEN 21 mg/dL (7-18); CHLORIDE 95 mmol/L (98-107); CO2 41 mmol/L (21-32); CREATININE 0.8 mg/dL (0.55-1.3); GLUCOSE,RANDOM 164 mg/dL (74-106); POTASSIUM 3.7 mmol/L (3.5-5.1); SODIUM 140 mmol/L (136-145)
[2018-08-25] MEDS: FUROSEMIDE 40 MG/4 ML INJECTABLE VIAL IVPUSH SCH ×2 (09:26→21:51)
[2018-08-25] MEDS: MULTIVITAMINS (DAILY MVI) TABLET (FP) PO SCH (09:26)
[2018-08-25] MEDS: OMEGA-3 ACID ETHYL ESTERS (FATTY-ACIDS) 1 GM CAPSULE (FP) PO SCH ×2 (09:26→21:51)
[2018-08-25] MEDS: POTASSIUM CHLORIDE TABS 20 MEQ TABLET.ER (FP) PO SCH ×2 (09:26→21:51)
[2018-08-25] MEDS: ENOXAPARIN NA (PORCINE) 40 MG/0.4 ML DISP.SYRIN SQ SCH (09:27)
[2018-08-25] MEDS: ASPIRIN 81 MG CHEWABLE TABLETS PO SCH (09:27)
[2018-08-25] MEDS: POLYETHYLENE GLYCOL 3350 119 GM BTL PO SCH ×2 (09:27→21:52)
[2018-08-25] MEDS: NYSTATIN/TRIAMCINOLONE TOPICAL CREAM 15 GM TUBE TP SCH ×2 (09:27→21:52)
[2018-08-25] MEDS: HYDROCORTISONE 2.5% TOPICAL CREAM 30 GM TUBE PR SCH (09:27)
--- NOTE | 2018-08-25 12:02 | PN ---
Progress Note (short form) - Note Progress Note: Renal follow up for Metabolic alkalosis Pt seen and examined at the bedside no acute complaints sob is improved, not at baseline yet not ambulating much no chest pain, abd pain, fever, chills Vital Signs Temperature 98.4 F 08/25/18 06:00 Pulse Rate 84 08/25/18 10:00 Respiratory Rate 20 08/25/18 10:00 Blood Pressure 129/54 L 08/25/18 10:00 O2 Sat by Pulse Oximetry (%) 92 L 08/24/18 21:00 Intake & Output 08/22/18 08/23/18 08/24/18 08/25/18 23:59 23:59 23:59 23:59 Intake Total 300 1350 760 80 Output Total 2250 2300 2700 1400 Balance -1950 -950 -1940 -1320 Weight 134.853 kg 133.413 kg 134.263 kg 132.959 kg NAD LE edema resolved CBC, BMP 08/25/18 07:00 08/25/18 07:00 Current Medications Acetaminophen (Tylenol -) 650 mg PO Q6H PRN PRN Reason: Fever Or Pain Last Admin: 08/20/18 03:06 Dose: 650 mg Albuterol/Ipratropium (Duoneb -) 1 amp NEB Q4H PRN PRN Reason: SHORTNESS OF BREATH Last Admin: 08/25/18 07:05 Dose: 1 amp Aspirin (Asa -) 81 mg PO DAILY [facility] Last Admin: 08/25/18 09:27 Dose: 81 mg Atorvastatin Calcium (Lipitor -) 20 mg PO HS [facility] Last Admin: 08/24/18 21:47 Dose: 20 mg Docusate Sodium (Colace -) 100 mg PO BID PRN PRN Reason: CONSTIPATION Enoxaparin Sodium (Lovenox -) 40 mg SQ DAILY [facility] Last Admin: 08/25/18 09:27 Dose: 40 mg Furosemide (Lasix Injection -) 40 mg IVPUSH BID [facility] Last Admin: 08/25/18 09:26 Dose: 40 mg Hydrocortisone (Anusol 2.5% Hc Cream -) 1 applic [place] DAILY [facility] Last Admin: 08/25/18 09:27 Dose: 1 applic Insulin Aspart (Novolog Vial Sliding Scale -) 1 vial SQ ACHS [facility]; Protocol Last Admin: 08/25/18 11:42 Dose: 2 units Levothyroxine Sodium (Synthroid -) 75 mcg PO DAILY@0700 [facility] Last Admin: 08/25/18 06:10 Dose: 75 mcg Multivitamins/Minerals/Vitamin C (Tab-A-Vit -) 1 tab PO DAILY [facility] Last Admin: 08/25/18 09:26 Dose: 1 tab Nystatin/Triamcinolone Acetonide (Mycolog Ii Cream -) 1 applic TP BID [facility] Last Admin: 08/25/18 09:27 Dose: 1 applic Pbmxl-4-Nxxw Ethyl Esters (Lovaza -) 2 gm PO BID [facility] Last Admin: 08/25/18 09:26 Dose: 2 gm Polyethylene Glycol (Miralax (For Daily Use) -) 17 gm PO BID [facility] Last Admin: 08/25/18 09:27 Dose: Not Given Potassium Chloride (K-Dur -) 20 meq PO BID [facility] Last Admin: 08/25/18 09:26 Dose: 20 meq 73 year old woman with hx of COPD on home O2, DM, HLD, HF with LV diastolic dysfunction presented from home s/p fall and found to have CHF and now with development of worsening metabolic alkalosis in setting of IV diuresis. #Metabolic alkalosis in setting of IV diuresis with Respiratory acidosis #CHF exacerbation #COPD #DM #Hyperlipidmeia #Anemia Renal function stable, serum bicab stable continue Lasix BID as per primary team can d/c shook catheter and do trial of void Pulmonary work up on-going Freddy Hooks DO
--- NOTE | 2018-08-25 12:03 | PN ---
Progress Note (short form) - Note Progress Note: Resting in NAD. No acute events overnight. SOB is slowly improving but not at baseline. Still on 4 L [place] O2. Intake & Output 08/22/18 08/23/18 08/24/18 08/25/18 23:59 23:59 23:59 23:59 Intake Total 300 1350 760 80 Output Total 2250 2300 2700 1400 Balance -1950 -950 -1940 -1320 Weight 297 lb 4.8 oz 294 lb 2 oz 296 lb 293 lb 2 oz Last Vital Signs Temp Pulse Resp BP Pulse Ox 98.4 F 84 20 129/54 L 92 L 08/25/18 06:00 08/25/18 10:00 08/25/18 10:00 08/25/18 10:00 08/24/18 21:00 Active Medications Acetaminophen (Tylenol -) 650 mg PO Q6H PRN PRN Reason: Fever Or Pain Last Admin: 08/20/18 03:06 Dose: 650 mg Albuterol/Ipratropium (Duoneb -) 1 amp NEB Q4H PRN PRN Reason: SHORTNESS OF BREATH Last Admin: 08/25/18 07:05 Dose: 1 amp Aspirin (Asa -) 81 mg PO DAILY [facility] Last Admin: 08/25/18 09:27 Dose: 81 mg Atorvastatin Calcium (Lipitor -) 20 mg PO HS [facility] Last Admin: 08/24/18 21:47 Dose: 20 mg Docusate Sodium (Colace -) 100 mg PO BID PRN PRN Reason: CONSTIPATION Enoxaparin Sodium (Lovenox -) 40 mg SQ DAILY [facility] Last Admin: 08/25/18 09:27 Dose: 40 mg Furosemide (Lasix Injection -) 40 mg IVPUSH BID [facility] Last Admin: 08/25/18 09:26 Dose: 40 mg Hydrocortisone (Anusol 2.5% Hc Cream -) 1 applic [place] DAILY [facility] Last Admin: 08/25/18 09:27 Dose: 1 applic Insulin Aspart (Novolog Vial Sliding Scale -) 1 vial SQ ACHS [facility]; Protocol Last Admin: 08/25/18 11:42 Dose: 2 units Levothyroxine Sodium (Synthroid -) 75 mcg PO DAILY@0700 [facility] Last Admin: 08/25/18 06:10 Dose: 75 mcg Multivitamins/Minerals/Vitamin C (Tab-A-Vit -) 1 tab PO DAILY [facility] Last Admin: 08/25/18 09:26 Dose: 1 tab Nystatin/Triamcinolone Acetonide (Mycolog Ii Cream -) 1 applic TP BID [facility] Last Admin: 08/25/18 09:27 Dose: 1 applic Rzwex-4-Ylfw Ethyl Esters (Lovaza -) 2 gm PO BID [facility] Last Admin: 08/25/18 09:26 Dose: 2 gm Polyethylene Glycol (Miralax (For Daily Use) -) 17 gm PO BID [facility] Last Admin: 08/25/18 09:27 Dose: Not Given Potassium Chloride (K-Dur -) 20 meq PO BID [facility] Last Admin: 08/25/18 09:26 Dose: 20 meq Constitutional: Yes: NAD Eyes: Yes: Conjunctiva Clear, EOM Intact HENT: Yes: Atraumatic, Normocephalic Neck: Yes: Supple, Trachea Midline Cardiovascular: Yes: Regular Rate and Rhythm Respiratory: Yes: Diminished at the bases, scattered rhonchi ...Clubbing: No Gastrointestinal: Yes: Normal Bowel Sounds, Soft, Abdomen, Obese. No: Tenderness Edema: Yes Labs: Laboratory Results - last 24 hr 08/24/18 08/24/18 08/25/18 17:13 20:42 06:09 WBC RBC Hgb Hct MCV MCH MCHC RDW Plt Count MPV Absolute Neuts (auto) Neutrophils % Lymphocytes % Monocytes % Eosinophils % Basophils % Nucleated RBC % Sodium Potassium Chloride Carbon Dioxide Anion Gap BUN Creatinine Creat Clearance w eGFR POC Glucometer 165 208 164 Random Glucose Calcium 08/25/18 08/25/18 08/25/18 07:00 07:00 11:38 WBC 7.3 RBC 3.27 L Hgb 7.4 L Hct 24.9 L MCV 76.2 L MCH 22.5 L MCHC 29.5 L RDW 19.6 H Plt Count 244 D MPV 8.6 Absolute Neuts (auto) 5.2 Neutrophils % 71.9 Lymphocytes % 19.2 D Monocytes % 6.1 Eosinophils % 2.3 Basophils % 0.5 Nucleated RBC % 0 Sodium 140 Potassium 3.7 Chloride 95 L Carbon Dioxide 41 H Anion Gap 4 L BUN 21 H Creatinine 0.8 Creat Clearance w eGFR > 60 POC Glucometer 170 Random Glucose 164 H Calcium 8.0 L Problem List - Problems (1) Acute on chronic diastolic (congestive) heart failure Code(s): I50.33 - ACUTE ON CHRONIC DIASTOLIC (CONGESTIVE) HEART FAILURE (2) Volume overload Code(s): E87.70 - FLUID OVERLOAD, UNSPECIFIED (3) Pulmonary HTN Code(s): I27.20 - PULMONARY HYPERTENSION, UNSPECIFIED Assessment/Plan Acute on Chronic Diastolic Heart Failure Pulmonary HTN Volume Overload Chronic Hypoxic Respirtory Failure COPD Hyperlipidemia Hypothyroidism Likely LUCIUS/OHS - continue lasix - monitor urine output, creatinine - daily weights - O2 to keep Spo2 >90% - will need to repeat echocardiogram when euvolemic as outpatient to reassess RVSP - outpatient PFTs and PSG - DVT prophylaxis Dr Villanueva
--- NOTE | 2018-08-25 15:37 | PN ---
Physical Exam: SUBJECTIVE: Patient seen and examined no new issues overnight OBJECTIVE: Vital Signs Period Temp Pulse Resp BP Sys/Donohue Pulse Ox Last 24 Hr 98.2 F-98.5 F 81-88 20-21 115-137/54-95 92 GENERAL: The patient is awake, alert, and fully oriented, in no acute distress. on nasal canula 4L base line HEAD: Normal with no signs of trauma. ENT: , moist mucous membranes. NECK: Trachea midline, full range of motion, supple. LUNGS: Breath sounds equal, clear to auscultation bilaterally, no wheezes, crackles b/l , no accessory muscle use. on nasal canula 4 l HEART: Regular rate and rhythm, S1, S2 ABDOMEN: Soft, nontender, nondistended, normoactive bowel sounds, no guarding, no rebound, obese EXTREMITIES: warm, well-perfused,dependent edema legs getting better NEUROLOGICAL: Normal speech, gait not observed. PSYCH: Normal mood, normal affect. SKIN: Warm, dry, Laboratory Results - last 24 hr 08/24/18 08/24/18 08/25/18 17:13 20:42 06:09 WBC RBC Hgb Hct MCV MCH MCHC RDW Plt Count MPV Absolute Neuts (auto) Neutrophils % Lymphocytes % Monocytes % Eosinophils % Basophils % Nucleated RBC % Sodium Potassium Chloride Carbon Dioxide Anion Gap BUN Creatinine Creat Clearance w eGFR POC Glucometer 165 208 164 Random Glucose Calcium 08/25/18 08/25/18 08/25/18 07:00 07:00 11:38 WBC 7.3 RBC 3.27 L Hgb 7.4 L Hct 24.9 L MCV 76.2 L MCH 22.5 L MCHC 29.5 L RDW 19.6 H Plt Count 244 D MPV 8.6 Absolute Neuts (auto) 5.2 Neutrophils % 71.9 Lymphocytes % 19.2 D Monocytes % 6.1 Eosinophils % 2.3 Basophils % 0.5 Nucleated RBC % 0 Sodium 140 Potassium 3.7 Chloride 95 L Carbon Dioxide 41 H Anion Gap 4 L BUN 21 H Creatinine 0.8 Creat Clearance w eGFR > 60 POC Glucometer 170 Random Glucose 164 H Calcium 8.0 L Active Medications Generic Name Dose Route Start Last Admin Trade Name Freq PRN Reason Stop Dose Admin Acetaminophen 650 mg 08/14/18 02:28 08/20/18 03:06 Tylenol - PO 650 mg Q6H PRN Administration Fever Or Pain Albuterol/Ipratropium 1 amp 08/22/18 22:08 08/25/18 07:05 Duoneb - NEB 1 amp Q4H PRN Administration SHORTNESS OF BREATH Aspirin 81 mg 08/14/18 10:00 08/25/18 09:27 Asa - PO 81 mg DAILY LISA Administration Atorvastatin Calcium 20 mg 08/14/18 22:00 08/24/18 21:47 Lipitor - PO 20 mg HS LISA Administration Docusate Sodium 100 mg 08/23/18 13:26 Colace - PO BID PRN CONSTIPATION Enoxaparin Sodium 40 mg 08/22/18 10:00 08/25/18 09:27 Lovenox - SQ 40 mg DAILY LISA Administration Furosemide 40 mg 08/21/18 22:00 08/25/18 09:26 Lasix Injection - IVPUSH 40 mg BID LISA Administration Hydrocortisone 1 applic 08/22/18 11:30 08/25/18 09:27 Anusol 2.5% Hc Cream - AK 1 applic DAILY LISA Administration Insulin Aspart 1 vial 08/14/18 07:00 08/25/18 11:42 Novolog Vial Sliding Scale - SQ 2 units ACHS LISA Administration Protocol Levothyroxine Sodium 75 mcg 08/14/18 07:00 08/25/18 06:10 Synthroid - PO 75 mcg DAILY@0700 LISA Administration Multivitamins/Minerals/Vitamin C 1 tab 08/14/18 10:00 08/25/18 09:26 Tab-A-Vit - PO 1 tab DAILY LISA Administration Nystatin/Triamcinolone Acetonide 1 applic 08/14/18 10:00 08/25/18 09:27 Mycolog Ii Cream - TP 1 applic BID LISA Administration [id number]-[id number] Ethyl Esters 2 gm 08/14/18 10:00 08/25/18 09:26 Lovaza - PO 2 gm BID LISA Administration Polyethylene Glycol 17 gm 08/19/18 11:30 08/25/18 09:27 Miralax (For Daily Use) - PO Not Given BID LISA Potassium Chloride 20 meq 08/21/18 22:00 08/25/18 09:26 K-Dur - PO 20 meq BID LISA Administration ASSESSMENT/PLAN: Patient is a 73 year old female with past medical history of diastolic CHF, HLD , NIDDM, morbid obesity, hypothyroidism and COPD (O2-dependent), presented to the ED with bilateral lower leg pain and left hip pain after a fall. #s/p Mechanical fall -Pelvis/hip xray showed no signs of fracture -Physical therapy bid -pain control - xray ankle; chronic degenrative changes #Diastolic CHF IV lasix 40mg bid low salt and cholesterol diet. oral fluid intake < 1500 monitor electrolytes and cr aspirin echo reviewed ef normal monitor electrolytes. #HLD -Continue lipitor 20 #NIDDM -Will hold home metformin -Insulin sliding scale implemented -BGM ACHS #Hypothyroidism -Continue synthroid 75mcg daily # Microcytic anemia iron deficiency anemia. started on ferrous sulphate stool for occult blood negative #COPD -Continue home Duonebs TID -Continue oxygen at 4L NC -Pre and post assessment prior to discharge #FEN -orally < 1500ml allowed -Electrolytes wnl, routine bmp monitoring -diabetic/sodium restricted diet #Prophylaxis -Lovenox 40mg sq daily dc shook #Disposition pending placement Visit type - Emergency Visit Emergency Visit: Yes ED Registration Date: 08/15/18 Care time: The patient presented to the Emergency Department on the above date and was hospitalized for further evaluation of their emergent condition. - New Patient This patient is new to me today: No - Critical Care Critical Care patient: No
--- NOTE | 2018-08-25 16:36 | PN ---
Progress Note (short form) - Note Progress Note: s: no chest pain, palps, dyspnea. edema improving. Current Medications Acetaminophen (Tylenol -) 650 mg PO Q6H PRN PRN Reason: Fever Or Pain Last Admin: 08/20/18 03:06 Dose: 650 mg Albuterol/Ipratropium (Duoneb -) 1 amp NEB Q4H PRN PRN Reason: SHORTNESS OF BREATH Last Admin: 08/25/18 07:05 Dose: 1 amp Aspirin (Asa -) 81 mg PO DAILY [facility] Last Admin: 08/25/18 09:27 Dose: 81 mg Atorvastatin Calcium (Lipitor -) 20 mg PO HS [facility] Last Admin: 08/24/18 21:47 Dose: 20 mg Docusate Sodium (Colace -) 100 mg PO BID PRN PRN Reason: CONSTIPATION Enoxaparin Sodium (Lovenox -) 40 mg SQ DAILY [facility] Last Admin: 08/25/18 09:27 Dose: 40 mg Furosemide (Lasix Injection -) 40 mg IVPUSH BID [facility] Last Admin: 08/25/18 09:26 Dose: 40 mg Hydrocortisone (Anusol 2.5% Hc Cream -) 1 applic AL DAILY [facility] Last Admin: 08/25/18 09:27 Dose: 1 applic Insulin Aspart (Novolog Vial Sliding Scale -) 1 vial SQ ACHS [facility]; Protocol Last Admin: 08/25/18 11:42 Dose: 2 units Levothyroxine Sodium (Synthroid -) 75 mcg PO DAILY@0700 [facility] Last Admin: 08/25/18 06:10 Dose: 75 mcg Multivitamins/Minerals/Vitamin C (Tab-A-Vit -) 1 tab PO DAILY [facility] Last Admin: 08/25/18 09:26 Dose: 1 tab Nystatin/Triamcinolone Acetonide (Mycolog Ii Cream -) 1 applic TP BID [facility] Last Admin: 08/25/18 09:27 Dose: 1 applic [id number] Ethyl Esters (Lovaza -) 2 gm PO BID [facility] Last Admin: 08/25/18 09:26 Dose: 2 gm Polyethylene Glycol (Miralax (For Daily Use) -) 17 gm PO BID [facility] Last Admin: 08/25/18 09:27 Dose: Not Given Potassium Chloride (K-Dur -) 20 meq PO BID [facility] Last Admin: 08/25/18 09:26 Dose: 20 meq Vital Signs Vital Signs Period Temp Pulse Resp BP Sys/Donohue Pulse Ox Last 24 Hr 98.2 F-98.5 F 81-88 20-21 115-137/54-95 92 nad no jvd rrr s1s2 no mrg cta bl nl eff aaox3 trace edema bl abd nt nd pos bs ecg: sr, nl intervals, no ischemic changes CXR: no sig chf Echo 10/2016: tds; low nl lvef, nl rv, mild lae, mod tr, rvsp 40-50 Echo 02/2016: suboptimal. grossly nl lv size. Mild-mod LV dysfunction. RV not well seen. Mild ARLYN. Mod TR. RVSP 40-50. Small effusion < 1 cm. stress MPI 06/08: no ischemic EKG changes. nl perfusion. EF 45%, global. echo 05/2018 tds, mod TR, LV grossly nl size/function, RVSP 68 mmHg CTA chest: patchy consolidations/atelectasis. no PE echo 07/2018 nl LV function, grade II diastolic dysfunction with elevated LA pressure, LA mod dilated, mod TR, PASP at least 68 mmHg Assessment/Plan 73 yo female here with non healing foot wound, redness of le's. acute on chronic diast chf, pulm HTN (WHO 2?): - preserved LVEF (11/07 echo) with no signif valve dysfunction - repeat echo nl LV function with severe pulm HTN - admitted with edema, hypoxia and weight gain - receiving IV lasix 40 bid - 08/18: UOP 3-4L daily (booen). says edema not improving. no sob but laying in bed. bedscale wts only--not accurate for fluid status purposes. renal fxn/lytes stable. increase lasix to 40 iv TID today. - 08/19- continue lasix 40 mg IV TID -08/21: bicarb up slightly from yesterday but pt still with significant le edema (but improving), will cont iv lasix today and f/u labs in AM to determine if need to reduce diuretic -08/22: Cr/lytes stable, wt down. Cont iv lasix for now. -08/25: Cr/lytes stable, weight down on lasix 40 mg IV BID, continue - monitor daily weights, Cr, lytes, I/O with diuresis HTN - bp controlled - cont current mgmt HLD - con't home statin regimen anemia - H/H here below prior baseline - per primary team
--- NOTE | 2018-08-25 18:50 | PN ---
Teaching Attending Note Name of Resident: Michel Alcantar ATTENDING PHYSICIAN STATEMENT I saw and evaluated the patient. I reviewed the resident's note and discussed the case with the resident. I agree with the resident's findings and plan as documented. SUBJECTIVE: Feels okay - wants to mobilize out of bed. No pain/fevers/chills. SOB improving. NO cough/sputum/fever/chills. OBJECTIVE: Afebrile, Hemodynamically Stable Last Vital Signs Temp Pulse Resp BP Pulse Ox 98.5 F 88 21 H 128/95 92 L 08/25/18 14:00 08/25/18 14:00 08/25/18 14:00 08/25/18 14:00 08/24/18 21:00 HEENT - Atraumatic, Normocephalic. Heart - S1, S2, RRR Lungs - good air entry bilaterally Abdomen - high BMI. Soft, Nontender. Bowel Sounds normal. Extremities - mild edema, no calf tenderness. Laboratory Results - last 24 hr 08/24/18 08/25/18 08/25/18 20:42 06:09 07:00 WBC 7.3 RBC 3.27 L Hgb 7.4 L Hct 24.9 L MCV 76.2 L MCH 22.5 L MCHC 29.5 L RDW 19.6 H Plt Count 244 D MPV 8.6 Absolute Neuts (auto) 5.2 Neutrophils % 71.9 Lymphocytes % 19.2 D Monocytes % 6.1 Eosinophils % 2.3 Basophils % 0.5 Nucleated RBC % 0 Sodium Potassium Chloride Carbon Dioxide Anion Gap BUN Creatinine Creat Clearance w eGFR POC Glucometer 208 164 Random Glucose Calcium 08/25/18 08/25/18 08/25/18 07:00 11:38 16:45 WBC RBC Hgb Hct MCV MCH MCHC RDW Plt Count MPV Absolute Neuts (auto) Neutrophils % Lymphocytes % Monocytes % Eosinophils % Basophils % Nucleated RBC % Sodium 140 Potassium 3.7 Chloride 95 L Carbon Dioxide 41 H Anion Gap 4 L BUN 21 H Creatinine 0.8 Creat Clearance w eGFR > 60 POC Glucometer 170 166 Random Glucose 164 H Calcium 8.0 L Current Medications Generic Name Dose Route Start Last Admin Trade Name Freq PRN Reason Stop Dose Admin Acetaminophen 650 mg 08/14/18 02:28 08/20/18 03:06 Tylenol - PO 650 mg Q6H PRN Administration Fever Or Pain Albuterol/Ipratropium 1 amp 08/22/18 22:08 08/25/18 07:05 Duoneb - NEB 1 amp Q4H PRN Administration SHORTNESS OF BREATH Aspirin 81 mg 08/14/18 10:00 08/25/18 09:27 Asa - PO 81 mg DAILY LISA Administration Atorvastatin Calcium 20 mg 08/14/18 22:00 08/24/18 21:47 Lipitor - PO 20 mg HS LISA Administration Docusate Sodium 100 mg 08/23/18 13:26 Colace - PO BID PRN CONSTIPATION Enoxaparin Sodium 40 mg 08/22/18 10:00 08/25/18 09:27 Lovenox - SQ 40 mg DAILY LISA Administration Furosemide 40 mg 08/21/18 22:00 08/25/18 09:26 Lasix Injection - IVPUSH 40 mg BID LISA Administration Hydrocortisone 1 applic 08/22/18 11:30 08/25/18 09:27 Anusol 2.5% Hc Cream - ND 1 applic DAILY LISA Administration Insulin Aspart 1 vial 08/14/18 07:00 08/25/18 17:38 Novolog Vial Sliding Scale - SQ 2 units ACHS LISA Administration Protocol Levothyroxine Sodium 75 mcg 08/14/18 07:00 08/25/18 06:10 Synthroid - PO 75 mcg DAILY@0700 LISA Administration Multivitamins/Minerals/Vitamin C 1 tab 08/14/18 10:00 08/25/18 09:26 Tab-A-Vit - PO 1 tab DAILY LISA Administration Nystatin/Triamcinolone Acetonide 1 applic 08/14/18 10:00 08/25/18 09:27 Mycolog Ii Cream - TP 1 applic BID LISA Administration Kpxse-7-Pces Ethyl Esters 2 gm 08/14/18 10:00 08/25/18 09:26 Lovaza - PO 2 gm BID LISA Administration Polyethylene Glycol 17 gm 08/19/18 11:30 08/25/18 09:27 Miralax (For Daily Use) - PO Not Given BID LISA Potassium Chloride 20 meq 08/21/18 22:00 08/25/18 09:26 K-Dur - PO 20 meq BID LISA Administration ASSESSMENT AND PLAN: 73 year old female with Obesity, Chronic Respiratory Failure secondary to COPD on home O2, DM 2, HLD, Hypothyroidism, Chronic Diastolic HF, presents s/p fall with bilateral LE and hip pain, found to have decompensated CHF. Pelvis/hip xray showed no signs of fracture CTA Chest - no PE, atelectasis 1. Acute on Chronic Diastolic CHF exacerbation Continue Lasix 40mg IVP BID Fluid restriction Echo - normal EF Daily weight, I/Os Remove shook 2. Metabolic Alkalosis sec to Lasix diuresis - Nephrology following. 3. DM 2 - Continue Novolog Sliding scale 4. CRF secondary to COPD, possible OHS/LUCIUS - Continue supplemental O2, DuoNebs. Pulmonary recommends outpatient PFTs and PSG. 5. HLD - Continue Lipitor. 6. Hypothyrodidism - Continue Levothyroxine. 7. KRISTEN - Iron supplementation started. FOBT neg DVT Px - Lovenox SQ
[2018-08-25] MEDS ORDERED: INSULIN (NOVOLOG) ASPART 100 UNITS/ML 10ML VIAL ONE (21:48)
[2018-08-25] MEDS: ATORVASTATIN CA 20 MG TABLET (FP) PO SCH (21:51)
[2018-08-26 05:53] VITALS: TEMP 98.1
[2018-08-26] MEDS: INSULIN SLIDING SCALE (NOVOLOG) 1 VIAL SQ SCH ×2 (06:20→11:16)
[2018-08-26] MEDS: LEVOTHYROXINE NA 75 MCG TABLET (FP) PO SCH (06:20)
[2018-08-26 07:47] LABS: HEMATOCRIT 25.3 % (32.4-45.2); HEMOGLOBIN 7.6 GM/dL (10.7-15.3); MCH 22.7 pg (25.7-33.7); MEAN CELL VOLUME 75.8 fl (80-96); MEAN PLT VOLUME 8.3 fl (7.5-11.1); PLATELET COUNT 245 K/MM3 (134-434); RBC 3.34 M/mm3 (3.60-5.2); RDW 19.6 % (11.6-15.6); WHITE BLOOD COUNT 6.2 K/mm3 (4.0-10.0)
[2018-08-26 08:39] LABS: ANION GAP 7 MMOL/L (8-16); BLOOD UREA NITROGEN 20 mg/dL (7-18); CALCIUM 8.4 mg/dL (8.5-10.1); CHLORIDE 95 mmol/L (98-107); CO2 38 mmol/L (21-32); CREATININE 0.7 mg/dL (0.55-1.3); GLUCOSE,RANDOM 173 mg/dL (74-106); POTASSIUM 3.7 mmol/L (3.5-5.1); SODIUM 140 mmol/L (136-145)
[2018-08-26] MEDS ORDERED: FUROSEMIDE 40 MG TABLET (FP) PO SCH ×2 (09:00→10:00)
--- NOTE | 2018-08-26 09:46 | PN ---
Progress Note (short form) - Note Progress Note: Being cleaned by staff. No acute events overnight. SOB continues to slowly improve but not at baseline. Still on 4 L NC O2. Intake & Output 08/23/18 08/24/18 08/25/18 08/26/18 23:59 23:59 23:59 23:59 Intake Total 1350 760 550 100 Output Total 2300 2700 2600 Balance -950 -1940 -0 100 Weight 294 lb 2 oz 296 lb 293 lb 2 oz 293 lb 3 oz Last Vital Signs Temp Pulse Resp BP Pulse Ox 98.1 F 84 18 113/60 92 L 08/26/18 05:52 08/26/18 05:52 08/26/18 05:52 08/26/18 05:52 08/25/18 21:00 Active Medications Acetaminophen (Tylenol -) 650 mg PO Q6H PRN PRN Reason: Fever Or Pain Last Admin: 08/20/18 03:06 Dose: 650 mg Albuterol/Ipratropium (Duoneb -) 1 amp NEB Q4H PRN PRN Reason: SHORTNESS OF BREATH Last Admin: 08/25/18 20:04 Dose: 1 amp Aspirin (Asa -) 81 mg PO DAILY [facility] Last Admin: 08/25/18 09:27 Dose: 81 mg Atorvastatin Calcium (Lipitor -) 20 mg PO HS [facility] Last Admin: 08/25/18 21:51 Dose: 20 mg Docusate Sodium (Colace -) 100 mg PO BID PRN PRN Reason: CONSTIPATION Enoxaparin Sodium (Lovenox -) 40 mg SQ DAILY [facility] Last Admin: 08/25/18 09:27 Dose: 40 mg Furosemide (Lasix -) 40 mg PO BIDLASIX [facility] Hydrocortisone (Anusol 2.5% Hc Cream -) 1 applic [place] DAILY [facility] Last Admin: 08/25/18 09:27 Dose: 1 applic Insulin Aspart (Novolog Vial Sliding Scale -) 1 vial SQ ACHS [facility]; Protocol Last Admin: 08/26/18 06:20 Dose: 2 units Levothyroxine Sodium (Synthroid -) 75 mcg PO DAILY@0700 [facility] Last Admin: 08/26/18 06:20 Dose: 75 mcg Multivitamins/Minerals/Vitamin C (Tab-A-Vit -) 1 tab PO DAILY [facility] Last Admin: 03/04/19 09:26 Dose: 1 tab Nystatin/Triamcinolone Acetonide (Mycolog Ii Cream -) 1 applic TP BID [facility] Last Admin: 08/25/18 21:52 Dose: 1 applic [id number]-8-Jspa Ethyl Esters (Lovaza -) 2 gm PO BID [facility] Last Admin: 08/25/18 21:51 Dose: 2 gm Polyethylene Glycol (Miralax (For Daily Use) -) 17 gm PO BID [facility] Last Admin: 08/25/18 21:52 Dose: Not Given Potassium Chloride (K-Dur -) 20 meq PO BID [facility] Last Admin: 08/25/18 21:51 Dose: 20 meq Constitutional: Yes: NAD Eyes: Yes: Conjunctiva Clear, EOM Intact HENT: Yes: Atraumatic, Normocephalic Neck: Yes: Supple, Trachea Midline Cardiovascular: Yes: Regular Rate and Rhythm Respiratory: Yes: Diminished at the bases, scattered rhonchi ...Clubbing: No Gastrointestinal: Yes: Normal Bowel Sounds, Soft, Abdomen, Obese. No: Tenderness Edema: Yes Labs: Laboratory Results - last 24 hr 08/25/18 08/25/18 08/25/18 11:38 16:45 21:50 WBC RBC Hgb Hct MCV MCH MCHC RDW Plt Count MPV Sodium Potassium Chloride Carbon Dioxide Anion Gap BUN Creatinine Creat Clearance w eGFR POC Glucometer 170 166 191 Random Glucose Calcium 08/26/18 08/26/18 08/26/18 06:19 07:15 07:15 WBC 6.2 RBC 3.34 L Hgb 7.6 L Hct 25.3 L MCV 75.8 L MCH 22.7 L MCHC 30.0 L RDW 19.6 H Plt Count 245 MPV 8.3 Sodium 140 Potassium 3.7 Chloride 95 L Carbon Dioxide 38 H Anion Gap 7 L BUN 20 H Creatinine 0.7 Creat Clearance w eGFR > 60 POC Glucometer 188 Random Glucose 173 H Calcium 8.4 L Problem List - Problems (1) Acute on chronic diastolic (congestive) heart failure Code(s): I50.33 - ACUTE ON CHRONIC DIASTOLIC (CONGESTIVE) HEART FAILURE (2) Volume overload Code(s): E87.70 - FLUID OVERLOAD, UNSPECIFIED (3) Pulmonary HTN Code(s): I27.20 - PULMONARY HYPERTENSION, UNSPECIFIED Assessment/Plan Acute on Chronic Diastolic Heart Failure Pulmonary HTN Volume Overload Chronic Hypoxic Respirtory Failure COPD Hyperlipidemia Hypothyroidism Likely LUCIUS/OHS - continue lasix - monitor urine output, creatinine - daily weights - O2 to keep Spo2 >90% - Would be helpful to repeat ECHO when euvolemic as an outpatient to reassess RVSP - outpatient PFTs and PSG - DVT prophylaxis Dr Villanueva
[2018-08-26] MEDS: MULTIVITAMINS (DAILY MVI) TABLET (FP) PO SCH (10:17)
[2018-08-26] MEDS: POTASSIUM CHLORIDE TABS 20 MEQ TABLET.ER (FP) PO SCH (10:17)
[2018-08-26] MEDS: OMEGA-3 ACID ETHYL ESTERS (FATTY-ACIDS) 1 GM CAPSULE (FP) PO SCH (10:17)
[2018-08-26] MEDS: ASPIRIN 81 MG CHEWABLE TABLETS PO SCH (10:17)
[2018-08-26] MEDS: HYDROCORTISONE 2.5% TOPICAL CREAM 30 GM TUBE PR SCH (10:17)
[2018-08-26] MEDS: ENOXAPARIN NA (PORCINE) 40 MG/0.4 ML DISP.SYRIN SQ SCH (10:18)
[2018-08-26] MEDS: POLYETHYLENE GLYCOL 3350 119 GM BTL PO SCH (10:18)
[2018-08-26] MEDS: NYSTATIN/TRIAMCINOLONE TOPICAL CREAM 15 GM TUBE TP SCH (10:18)
[2018-08-26] MEDS ORDERED: INSULIN (NOVOLOG) ASPART 100 UNITS/ML 10ML VIAL ONE (11:14)
[2018-08-26] MEDS: ALBUTEROL SO4 2.5/IPRATROPIUM 0.5 INH SOL 3 ML VIAL.NEB. NEB PRN (11:30)
[2018-08-26 12:02] VITALS: BMI 53.6
[2018-08-26 13:31] VITALS: BP 118/56; PULSE 88
--- NOTE | 2018-08-26 14:42 | DS ---
Physical Exam: SUBJECTIVE: Patient seen and examined OBJECTIVE: Vital Signs Period Temp Pulse Resp BP Sys/Donohue Pulse Ox Last 24 Hr 98 F-98.2 F 82-88 18-20 113-126/54-60 92-92 PHYSICAL EXAM GENERAL: The patient is awake, alert, and fully oriented, in no acute distress. HEAD: Normal with no signs of trauma. EYES: PERRL, extraocular movements intact, sclera anicteric, conjunctiva clear. ENT: Ears normal, nares patent, oropharynx clear without exudates, moist mucous membranes. NECK: Trachea midline, full range of motion, supple. LUNGS: Breath sounds equal, clear to auscultation bilaterally, no wheezes, no crackles, no accessory muscle use. HEART: Regular rate and rhythm, S1, S2 without murmur, rub or gallop. ABDOMEN: Soft, nontender, nondistended, normoactive bowel sounds, no guarding, no rebound, no hepatosplenomegaly, no masses. EXTREMITIES: 2+ pulses, warm, well-perfused, no edema. NEUROLOGICAL: Cranial nerves II through XII grossly intact. Normal speech, gait not observed. PSYCH: Normal mood, normal affect. SKIN: Warm, dry, normal turgor, no rashes or lesions noted. LABS Laboratory Results - last 24 hr 08/25/18 08/25/18 08/26/18 16:45 21:50 06:19 WBC RBC Hgb Hct MCV MCH MCHC RDW Plt Count MPV Sodium Potassium Chloride Carbon Dioxide Anion Gap BUN Creatinine Creat Clearance w eGFR POC Glucometer 166 191 188 Random Glucose Calcium 08/26/18 08/26/18 08/26/18 07:15 07:15 11:11 WBC 6.2 RBC 3.34 L Hgb 7.6 L Hct 25.3 L MCV 75.8 L MCH 22.7 L MCHC 30.0 L RDW 19.6 H Plt Count 245 MPV 8.3 Sodium 140 Potassium 3.7 Chloride 95 L Carbon Dioxide 38 H Anion Gap 7 L BUN 20 H Creatinine 0.7 Creat Clearance w eGFR > 60 POC Glucometer 192 Random Glucose 173 H Calcium 8.4 L HOSPITAL COURSE: Patient is a 73 year old female with past medical history of diastolic CHF, HLD, NIDDM, morbid obesity, hypothyroidism and COPD (O2-dependent ), presented to the ED with bilateral lower leg pain and left hip pain after a fall. Patient was admitted 2 months ago for Right foot cellulitis and underwent excision and debridement. She was sent to [facility] to continue with rehab. As per patient, she would walk about 30 feet daily. Yesterday, she was discharged from [facility] on a wheelchair. At home, as patient was trying to transfer from the wheelchair to the bed, she lost her balance and fell down on the floor, on a sitting position with her legs folded behind her. She denies any head trauma or LOC. Patient could not stand up on her own and had to call 911. Patient reports bilateral lower leg pain and left hip pain. IN hospital was found to have b/l pitting edema and pt states that she has gained 50 pounds over 2 months. Cardiology and nephrology was consulted. Pt was started on IV lasix and it was increased to 40 mg IV tid. Pt had good diuresis with IV lasix and pt weight decreased from 300 to 290. But pt bicarb started to increase on IV lasix so her dose was cut down to 40 bid and later to 40 po bid . Now pt is feeling good her swelling in legs has decreased significantly. Pt never had trouble in breathing. ECHO was also done in this admission, ef normal. As pt has gained this weight over a long period of time and as per pt she was ordering a food from outside everyday this gain in weight could be from increase in BMI with fluid retention. Now pt feels good, states legs look better , breathing is good., no edema in legs. Pt is discharged in stable condition to home with home PT/ vns. Initially pt was dc on 08/22/18 and the plan was to dc her to snf and [facility] was sent. Every snf has denied her. Mow pt is dc home with pt /vns. Follow up with your pcp with in one week Follow up with driver wheelchair Dr Day and strainer cleaner Dr dent with in one week We have started you on Lasix 40 mg twice a day orally We have also increased your potassium pill to 20 meq daily. Please get your BMP blood work done ever 2-3 days. Check your weight daily. Eat low salt and low cholesterol diet. Keep free water intake below 1500 ml. Keep legs elevated when you are sitting or lying in bed by placing pillow under the legs. Change position at least every 2 hourly. Take your laxatives as required. avoid constipation. Follow healthy life style You are using a 4 L of oxygen during sitting. As per Pt she already have home oxygen home PT or visiting nurse will be arranged by director social service/ case assembler we have sent your prescription for lasix and iron pills to [facility] If you develop any new symptoms or shortness of breath, chest pain please contact doctor or go to hospital Date of Admission:08/15/18 Date of Discharge: 08/26/18 Minutes to complete discharge: 45 Discharge Summary Reason For Visit: HYPOXIA PAIN OF LEFT LEG FALL Current Active Problems Acute decompensated heart failure (Acute) Acute on chronic diastolic (congestive) heart failure (Acute) CKD (chronic kidney disease) stage 3, GFR 30-59 ml/min (Acute) COPD (chronic obstructive pulmonary disease) (Acute) Fall (Acute) Hypoxia (Acute) Left hip pain (Acute) Left knee pain (Acute) Morbid obesity with BMI of 50.0-59.9, adult (Acute) Pulmonary HTN (Acute) Right knee pain (Acute) Volume overload (Acute) Condition: Stable - Instructions Diet, Activity, Other Instructions: Follow up with your pcp with in one week Follow up with driver wheelchair Dr Day and strainer cleaner Dr dent with in one week Follow up with Dr madi bell for screening colonoscopy Follow up with aluminum siding installer Dr bess for pft/ sleep studies We have started you on Lasix 40 mg twice a day orally We have also increased your potassium pill to 20 meq daily. Please get your BMP blood work done in one week days. Check your weight daily. Eat low salt and low cholesterol diet. Keep free water intake below 1500 ml. Keep legs elevated when you are sitting or lying in bed by placing pillow under the legs. Change position at least every 2 hourly. Take your laxatives as required. avoid constipation. Follow healthy life style You are using a 4 L of oxygen during sitting. home PT or visiting nurse will be arranged by director social service/ case assembler we have sent your prescription for lasix and iron pills to [facility] on [address] If you develop any new symptoms or shortness of breath, chest pain please contact doctor or go to hospital Referrals: Santosh Bell DO [Staff Physician] - Jarret Day MD [Staff Physician] - 1 Week Freddy Dent MD [Staff Physician] - 1 Week Alirio Garcia MD [Staff Physician] - 1 Week Disposition: [facility] - Home Medications Comprehensive Discharge Medication List: Ambulatory Orders Levothyroxine [Synthroid -] 75 mcg PO DAILY 12/11/16 [place]-3 Fatty Acids/Fish Oil [Fish Oil 1,000 mg Softgel] 1 each PO DAILY Simvastatin 40 mg PO HS 12/11/16 Aspirin [ASA -] 81 mg PO DAILY #1 tab.chew 03/05/17 Multivitamins [Multivit ([facility] Formulary)] 1 tab PO DAILY tab 03/05/17 metFORMIN HCL [Glucophage -] 500 mg PO BID 05/25/18 Albuterol 2.5/Ipratropium 0.5 [Duoneb -] 1 amp NEB RTID amp 05/30/18 Acetaminophen [Tylenol] 325 mg PO ASDIR 07/16/18 Nystatin/Triamcinolone Top Cr [Mycolog II -] 1 applic TP BID 07/16/18 Docusate Sodium [Colace -] 100 mg PO BID capsule 08/22/18 Hydrocortisone 2.5% Topical Cr [Anusol-Hc -] 1 applic [place] DAILY tube 08/22/18 Polyethylene Glycol 3350 [Miralax 119 gm Btl -] 17 gm PO BID bottle 08/22/18 Potassium Chloride [K-Dur -] 20 meq PO DAILY tablet.er 08/22/18 Ferrous Sulfate 325 mg PO DAILY #30 tablet 08/26/18 Furosemide [Lasix] 40 mg PO BID #30 tablet 08/26/18 This patient is new to me today: No Emergency Visit: Yes ED Registration Date: 08/15/18 Care time: The patient presented to the Emergency Department on the above date and was hospitalized for further evaluation of their emergent condition. Critical Care patient: No - Discharge Referral Referred to [facility] No
--- NOTE | 2018-08-26 14:54 | PN ---
Teaching Attending Note Name of Resident: Michel Alcantar ATTENDING PHYSICIAN STATEMENT I saw and evaluated the patient. I reviewed the resident's note and discussed the case with the resident. I agree with the resident's findings and plan as documented. SUBJECTIVE: Feels well - no complaints. No pain/fevers/chills. SOB improving. No cough/sputum/fever/chills. OBJECTIVE: Afebrile, Hemodynamically Stable Last Vital Signs Temp Pulse Resp BP Pulse Ox 98.1 F 88 18 118/56 L 92 L 08/26/18 05:52 08/26/18 09:00 08/26/18 09:00 08/26/18 09:00 08/26/18 09:00 HEENT - Atraumatic, Normocephalic. Heart - S1, S2, RRR Lungs - good air entry bilaterally Abdomen - high BMI. Soft, Nontender. Bowel Sounds normal. Extremities - mild edema, no calf tenderness. Laboratory Results - last 24 hr 08/25/18 08/25/18 08/26/18 16:45 21:50 06:19 WBC RBC Hgb Hct MCV MCH MCHC RDW Plt Count MPV Sodium Potassium Chloride Carbon Dioxide Anion Gap BUN Creatinine Creat Clearance w eGFR POC Glucometer 166 191 188 Random Glucose Calcium 08/26/18 08/26/18 08/26/18 07:15 07:15 11:11 WBC 6.2 RBC 3.34 L Hgb 7.6 L Hct 25.3 L MCV 75.8 L MCH 22.7 L MCHC 30.0 L RDW 19.6 H Plt Count 245 MPV 8.3 Sodium 140 Potassium 3.7 Chloride 95 L Carbon Dioxide 38 H Anion Gap 7 L BUN 20 H Creatinine 0.7 Creat Clearance w eGFR > 60 POC Glucometer 192 Random Glucose 173 H Calcium 8.4 L Current Medications Generic Name Dose Route Start Last Admin Trade Name Freq PRN Reason Stop Dose Admin Acetaminophen 650 mg 08/14/18 02:28 08/20/18 03:06 Tylenol - PO 650 mg Q6H PRN Administration Fever Or Pain Albuterol/Ipratropium 1 amp 08/22/18 22:08 08/26/18 11:30 Duoneb - NEB 1 amp Q4H PRN Administration SHORTNESS OF BREATH Aspirin 81 mg 08/14/18 10:00 08/26/18 10:17 Asa - PO 81 mg DAILY LISA Administration Atorvastatin Calcium 20 mg 08/14/18 22:00 08/25/18 21:51 Lipitor - PO 20 mg HS LISA Administration Docusate Sodium 100 mg 08/23/18 13:26 Colace - PO BID PRN CONSTIPATION Enoxaparin Sodium 40 mg 08/22/18 10:00 08/26/18 10:18 Lovenox - SQ 40 mg DAILY LISA Administration Furosemide 40 mg 08/26/18 09:00 08/26/18 10:17 Lasix - PO 40 mg BIDLASIX LISA Administration Hydrocortisone 1 applic 08/22/18 11:30 08/26/18 10:17 Anusol 2.5% Hc Cream - GA 1 applic DAILY LISA Administration Insulin Aspart 1 vial 08/14/18 07:00 08/26/18 11:16 Novolog Vial Sliding Scale - SQ 2 units ACHS LISA Administration Protocol Levothyroxine Sodium 75 mcg 08/14/18 07:00 08/26/18 06:20 Synthroid - PO 75 mcg DAILY@0700 LISA Administration Multivitamins/Minerals/Vitamin C 1 tab 08/14/18 10:00 08/26/18 10:17 Tab-A-Vit - PO 1 tab DAILY LISA Administration Nystatin/Triamcinolone Acetonide 1 applic 08/14/18 10:00 08/26/18 10:18 Mycolog Ii Cream - TP 1 applic BID LISA Administration Mfotp-[id number]-[id number] Ethyl Esters 2 gm 08/14/18 10:00 08/26/18 10:17 Lovaza - PO 2 gm BID LISA Administration Polyethylene Glycol 17 gm 08/19/18 11:30 08/26/18 10:18 Miralax (For Daily Use) - PO Not Given BID LISA Potassium Chloride 20 meq 08/21/18 22:00 08/26/18 10:17 K-Dur - PO 20 meq BID LISA Administration ASSESSMENT AND PLAN: 73 year old female with Obesity, Chronic Respiratory Failure secondary to COPD on home O2, DM 2, HLD, Hypothyroidism, Chronic Diastolic HF, presents s/p fall with bilateral LE and hip pain, found to have decompensated CHF. Pelvis/hip xray showed no signs of fracture CTA Chest - no PE, atelectasis 1. Acute on Chronic Diastolic CHF exacerbation Lasix switched to 40mg PO BID Fluid restriction Echo - normal EF Daily weight, I/Os Daniels removed, voiding spontaneously. 2. Metabolic Alkalosis sec to Lasix diuresis - Nephrology following. 3. DM 2 - Continue Novolog Sliding scale 4. CRF secondary to COPD, possible OHS/LUCIUS - Continue supplemental O2, DuoNebs. Pulmonary recommends outpatient PFTs and PSG. 5. HLD - Continue Lipitor. 6. Hypothyrodidism - Continue Levothyroxine. 7. KRISTEN - Iron supplementation started. FOBT neg DVT Px - Lovenox SQ
--- NOTE | 2018-08-26 15:31 | PN ---
Progress Note (short form) - Note Progress Note: s: no chest pain, palps, dyspnea, edema. stable dyspnea Current Medications Acetaminophen (Tylenol -) 650 mg PO Q6H PRN PRN Reason: Fever Or Pain Last Admin: 08/20/18 03:06 Dose: 650 mg Albuterol/Ipratropium (Duoneb -) 1 amp NEB Q4H PRN PRN Reason: SHORTNESS OF BREATH Last Admin: 08/26/18 11:30 Dose: 1 amp Aspirin (Asa -) 81 mg PO DAILY [facility] Last Admin: 08/26/18 10:17 Dose: 81 mg Atorvastatin Calcium (Lipitor -) 20 mg PO HS [facility] Last Admin: 08/25/18 21:51 Dose: 20 mg Docusate Sodium (Colace -) 100 mg PO BID PRN PRN Reason: CONSTIPATION Enoxaparin Sodium (Lovenox -) 40 mg SQ DAILY [facility] Last Admin: 08/26/18 10:18 Dose: 40 mg Furosemide (Lasix -) 40 mg PO BIDLASIX [facility] Last Admin: 08/26/18 10:17 Dose: 40 mg Hydrocortisone (Anusol 2.5% Hc Cream -) 1 applic MS DAILY [facility] Last Admin: 08/26/18 10:17 Dose: 1 applic Insulin Aspart (Novolog Vial Sliding Scale -) 1 vial SQ ACHS [facility]; Protocol Last Admin: 08/26/18 11:16 Dose: 2 units Levothyroxine Sodium (Synthroid -) 75 mcg PO DAILY@0700 [facility] Last Admin: 08/26/18 06:20 Dose: 75 mcg Multivitamins/Minerals/Vitamin C (Tab-A-Vit -) 1 tab PO DAILY [facility] Last Admin: 08/26/18 10:17 Dose: 1 tab Nystatin/Triamcinolone Acetonide (Mycolog Ii Cream -) 1 applic TP BID [facility] Last Admin: 08/26/18 10:18 Dose: 1 applic [place]-3-Caqk Ethyl Esters (Lovaza -) 2 gm PO BID [facility] Last Admin: 08/26/18 10:17 Dose: 2 gm Polyethylene Glycol (Miralax (For Daily Use) -) 17 gm PO BID [facility] Last Admin: 08/26/18 10:18 Dose: Not Given Potassium Chloride (K-Dur -) 20 meq PO BID [facility] Last Admin: 08/26/18 10:17 Dose: 20 meq Vital Signs Vital Signs Period Temp Pulse Resp BP Sys/Donhoue Pulse Ox Last 24 Hr 98 F-98.2 F 82-88 18-20 113-126/54-60 92-92 nad no jvd rrr s1s2 no mrg cta bl nl eff aaox3 no edema abd nt nd pos bs ecg: sr, nl intervals, no ischemic changes CXR: no sig chf Echo 10/2016: tds; low nl lvef, nl rv, mild lae, mod tr, rvsp 40-50 Echo 02/2016: suboptimal. grossly nl lv size. Mild-mod LV dysfunction. RV not well seen. Mild ARLYN. Mod TR. RVSP 40-50. Small effusion < 1 cm. stress MPI 06/08: no ischemic EKG changes. nl perfusion. EF 45%, global. echo 05/2018 tds, mod TR, LV grossly nl size/function, RVSP 68 mmHg CTA chest: patchy consolidations/atelectasis. no PE echo 07/2018 nl LV function, grade II diastolic dysfunction with elevated LA pressure, LA mod dilated, mod TR, PASP at least 68 mmHg Assessment/Plan 73 yo female here with non healing foot wound, redness of le's. acute on chronic diast chf, pulm HTN (WHO 2?): - preserved LVEF (11/07 echo) with no signif valve dysfunction - repeat echo nl LV function with severe pulm HTN - admitted with edema, hypoxia and weight gain - receiving IV lasix 40 bid - 08/18: UOP 3-4L daily (boone). says edema not improving. no sob but laying in bed. bedscale wts only--not accurate for fluid status purposes. renal fxn/lytes stable. increase lasix to 40 iv TID today. - 08/19- continue lasix 40 mg IV TID -08/21: bicarb up slightly from yesterday but pt still with significant le edema (but improving), will cont iv lasix today and f/u labs in AM to determine if need to reduce diuretic -08/22: Cr/lytes stable, wt down. Cont iv lasix for now. -08/25: Cr/lytes stable, weight down on lasix 40 mg IV BID, continue -08/26: transitioned to PO lasix 40 mg BID, follow up in 2-[address] Day HTN - bp controlled - cont current mgmt HLD - con't home statin regimen anemia - H/H here below prior baseline - per primary team
== END 2018-08-26 16:47 | DRG 291 ==
LOC: JER 19:07 → JERBED 20:56 → INTOOBSV 20:56 → J6S 08-14 02:19 → OBSVTOIN 08-15 15:35 → J6S 08-20 03:12
PROVIDERS: ADMIT Internal Medicine
PROC: 0HBRXZZ Excision of Toe Nail, External Approach (ICD-10-PCS; principal; 2018-08-19)
DX: I13.0 Hypertensive heart and chronic kidney disease with heart failure and stage 1 through stage 4 chronic kidney disease, or unspecified chronic kidney disease (principal); J96.21 Acute and chronic respiratory failure with hypoxia; J96.22 Acute and chronic respiratory failure with hypercapnia; I50.33 Acute on chronic diastolic (congestive) heart failure; Z68.43 Body mass index [BMI] 50.0-59.9, adult; E87.4 Mixed disorder of acid-base balance; E87.3 Alkalosis; E87.2 Acidosis; J44.9 Chronic obstructive pulmonary disease, unspecified; J42 Unspecified chronic bronchitis; E66.01 Morbid (severe) obesity due to excess calories; I27.20 Pulmonary hypertension, unspecified; E11.621 Type 2 diabetes mellitus with foot ulcer; L97.509 Non-pressure chronic ulcer of other part of unspecified foot with unspecified severity; D64.9 Anemia, unspecified; E78.5 Hyperlipidemia, unspecified; E03.9 Hypothyroidism, unspecified; E87.70 Fluid overload, unspecified; N18.3 Chronic kidney disease, stage 3 (moderate); B35.1 Tinea unguium
CPT/HCPCS: 36415; 36600; 71045-TC-FY; 73523-TC-FY; 73560-TC-LT-FY; 73560-TC-RT-FY; 73610-TC-RT-FY; 73630-TC-RT-FY; 80048; 80053; 82272; 82607; 82728; 82746; 82803; 82962; 83540; 83550; 83735; 83880; 84100; 84484; 85025; 85027; 85610; 93005; 93010; 93306-TC; 94640; 94761; 97116-GP; 97162-GP; 99283-25; G0378; J0131

== ENCOUNTER 2018-08-26 18:18 | Observation (INO) | payer OTHER, MEDICARE ==
--- NOTE | 2018-08-26 19:26 | PDOC ---
*Physical Exam - Vital Signs Last Vital Signs Temp Pulse Resp BP Pulse Ox 97.6 F 83 16 115/56 L 96 08/26/18 18:20 08/26/18 18:20 08/26/18 18:20 08/26/18 18:20 08/26/18 18:20 Medical Decision Making - Medical Decision Making 08/26/18 19:25 Patient seen by the advanced practice provider under my direct supervision. Ancillary testing reviewed as necessary. I agree with plan as outlined by the advanced practice provider. *DC/Admit/Observation/Transfer Diagnosis at time of Disposition: Risk for falls - Discharge Dispostion Condition at time of disposition: Stable - Referrals - Patient Instructions - Post Discharge Activity
--- NOTE | 2018-08-26 20:23 | PDOC ---
History of Present Illness - General Chief Complaint: Pain Stated Complaint: PAIN Time Seen by Provider: 08/26/18 19:23 History Source: Patient Exam Limitations: No Limitations Past History - Past Medical History Allergies/Adverse Reactions: Allergies Allergy/AdvReac Type Severity Reaction Status Date / Time codeine [Codeine] Allergy Verified 08/26/18 19:28 shellfish derived Allergy Verified 08/26/18 19:28 tramadol AdvReac Mild Verified 08/26/18 19:28 Home Medications: Ambulatory Orders Levothyroxine [Synthroid -] 75 mcg PO DAILY 12/11/16 [place]-3 Fatty Acids/Fish Oil [Fish Oil 1,000 mg Softgel] 1 each PO DAILY Simvastatin 40 mg PO HS 12/11/16 Aspirin [ASA -] 81 mg PO DAILY #1 tab.chew 03/05/17 Multivitamins [Multivit ([facility] Formulary)] 1 tab PO DAILY tab 03/05/17 metFORMIN HCL [Glucophage -] 500 mg PO BID 05/25/18 Albuterol 2.5/Ipratropium 0.5 [Duoneb -] 1 amp NEB RTID amp 05/30/18 Acetaminophen [Tylenol] 325 mg PO ASDIR 07/16/18 Nystatin/Triamcinolone Top Cr [Mycolog II -] 1 applic TP BID 07/16/18 Docusate Sodium [Colace -] 100 mg PO BID capsule 08/22/18 Hydrocortisone 2.5% Topical Cr [Anusol-Hc -] 1 applic [place] DAILY tube 08/22/18 Polyethylene Glycol 3350 [Miralax 119 gm Btl -] 17 gm PO BID bottle 08/22/18 Potassium Chloride [K-Dur -] 20 meq PO DAILY tablet.er 08/22/18 Ferrous Sulfate 325 mg PO DAILY #30 tablet 08/26/18 Furosemide [Lasix] 40 mg PO BID #30 tablet 08/26/18 Anemia: No COPD: Yes (O2 dependent) CHF: Yes Diabetes: Yes (IDDM) Disorders: Yes (kidney stones) HTN: Yes Hypercholesterolemia: Yes Thyroid Disease: Yes (hypo) - Surgical History Orthopedic Surgery: Yes (LT PARTIAL KNEE REPLACEMENT, femur surgery) - Immunization History Immunization Up to Date: Yes - Suicide/Smoking/Psychosocial Hx Smoking Status: No Smoking History: Unknown if ever smoked Have you smoked in the past 12 months: No Number of Cigarettes Smoked Daily: 1 If you are a former smoker, when did you quit?: 1981 Information on smoking cessation initiated: No Hx Alcohol Use: No Drug/Substance Use Hx: No Substance Use Type: None Hx Substance Use Treatment: No *Physical Exam - Vital Signs Last Vital Signs Temp Pulse Resp BP Pulse Ox 97.6 F 83 16 115/56 L 96 08/26/18 18:20 08/26/18 18:20 08/26/18 18:20 08/26/18 18:20 08/26/18 18:20 - Physical Exam General Appearance: No: Apparent Distress Respiratory/Chest: positive: Lungs Clear. negative: Respiratory Distress Cardiovascular: positive: Regular Rhythm, Regular Rate Gastrointestinal/Abdominal: positive: Soft. negative: Tender Extremity: positive: Pedal Edema, Swelling. negative: Erythema Integumentary: positive: Normal Color Neurologic: positive: Fully Oriented, Alert, Normal Mood/Affect Moderate Sedation - Procedure Monitoring Vital Signs: Procedure Monitoring Vital Signs Temperature 97.6 F 08/26/18 18:20 Pulse Rate 83 08/26/18 18:20 Respiratory Rate 16 08/26/18 18:20 Blood Pressure 115/56 L 08/26/18 18:20 O2 Sat by Pulse Oximetry (%) 96 08/26/18 18:20 Medical Decision Making - Medical Decision Making 73 y/o F morbidly obese hx of diastolic HF, HLD, NIDDM, hypothyroidism, COPD ( on 3L oxygen), R foot cellulitis s/p excision and debridement was just discharged from the hospital today (was admitted 08/13-08/26 due to BLE pain and L hip pain after fall) and returns as states when the EMS dropped her home, she was unable to stand and collapsed. States she worked with PT in the AM and was able to ambulate a few steps but couldn't even stand today. Lives with brother, but states he is unable to care for her. Has walker and WC already. Per prior notes, while patient was admitted, she was rejected by all the SNFs and was sent up for VNS. Currently patient denies any new trauma and denies pain to her extremities. Currently denies any new cp, sob, abd pain, n/v Patient re-admitted as unsafe discharge 08/26/18 20:18 *DC/Admit/Observation/Transfer Diagnosis at time of Disposition: Risk for falls - Discharge Dispostion Condition at time of disposition: Stable Decision to Admit order: Yes - Referrals - Patient Instructions - Post Discharge Activity
--- NOTE | 2018-08-26 20:48 | PN ---
Teaching Attending Note Name of Resident: Sadaf Verde ATTENDING PHYSICIAN STATEMENT I saw and evaluated the patient. I reviewed the resident's note and discussed the case with the resident. I agree with the resident's findings and plan as documented. SUBJECTIVE: Patient is a 73 year old woman with PMH of morbid obesity, diastolic CHF, HLD, NIDDM, hypothyroidism, COPD (on 3L home oxygen), R foot cellulitis s/p excision and debridement was just discharged from the hospital today (was admitted 08/13- due to BLE pain and L hip pain after fall) and returns as states when the EMS dropped her home, she was unable to stand and collapsed. States she worked with PT in the AM and was able to ambulate a few steps but couldn't even stand today. Lives with brother, but states he is unable to care for her. Has walker and wheel chair already. Per prior notes, while patient was admitted, she was rejected by all the SNFs and was set up for [facility]. Currently patient denies any new trauma and denies pain to her extremities. Currently denies any new chest pain, SOB, abdominal pain, nausea, vomiting or change in bowel habits. OBJECTIVE: Alert and morbidly obese Vital Signs Period Temp Pulse Resp BP Sys/Donohue Pulse Ox Last 24 Hr 97.6 F 83 16 115/56 96 HEENT: No Jaundice, eye redness or discharge, PERRLA, EOMI. Normocephalic, atraumatic. External ears are normal and hearing is grossly intact. No nasal discharge. Neck: Supple, nontender. No palpable adenopathy or thyromegaly. No JVD Chest: Good effort. Clear to auscultation and percussion. Heart: Regular. No S3, rub or murmur Abdomen: Not distended, soft, nontender and no HSM. No rebound or guarding. Normal bowel sounds. Ext: Peripheral pulses intact. Leg edema with chronic discoloration and skin thickening. Skin: Warm and dry. No petechiae, rash or ecchymosis. Neuro: Alert. Oriented x3. CN 2-12 grossly intact. Sensation grossly intact in all four extremities and DTR are symmetric. Psych: Appropriate mood and affect. Good insight. Home Medications Medication Instructions Recorded Levothyroxine [Synthroid -] 75 mcg PO DAILY 12/11/16 [place]-3 Fatty Acids/Fish Oil [Fish 1 each PO DAILY 12/11/16 Oil 1,000 mg Softgel] Simvastatin 40 mg PO HS 12/11/16 Aspirin [ASA -] 81 mg PO DAILY #1 tab.chew 03/05/17 Multivitamins [Multivit ([facility] 1 tab PO DAILY tab 03/05/17 Formulary)] metFORMIN HCL [Glucophage -] 500 mg PO BID 05/25/18 Albuterol 2.5/Ipratropium 0.5 1 amp NEB RTID amp 05/30/18 [Duoneb -] Acetaminophen [Tylenol] 325 mg PO ASDIR 07/16/18 Nystatin/Triamcinolone Top Cr 1 applic TP BID 07/16/18 [Mycolog II -] Docusate Sodium [Colace -] 100 mg PO BID capsule 08/22/18 Hydrocortisone 2.5% Topical Cr 1 applic [place] DAILY tube 08/22/18 [Anusol-Hc -] Polyethylene Glycol 3350 [Miralax 17 gm PO BID bottle 08/22/18 119 gm Btl -] Potassium Chloride [K-Dur -] 20 meq PO DAILY tablet.er 08/22/18 Ferrous Sulfate 325 mg PO DAILY #30 tablet 08/26/18 Furosemide [Lasix] 40 mg PO BID #30 tablet 08/26/18 ASSESSMENT AND PLAN: 1. Inability to ambulate/Global debility - Patient does not have any new acute medical problems. Her inability to walk is a continuum of her global debility following recent fall, diastolic CHF and effects of morbid obesity. She is desirous of more physical therapy. Will continue to manage all her comorbid issues (diastolic CHF, COPD) and reconsult sawmill worker, PT and manager paper. 2. Hypoalbuminemia - Possibly due to combined effects of malnutrition and inflammation associated with comorbid chronic conditions. Will ensure adequate dietary protein intake and also consult environmental health aide. 3. DM We will continue Metformin and implement sliding scale insulin regimen. Provide comprehensive diabetes care with patient teaching and counseling about the importance of adherence to prescribed diabetes regimen, euglycemia, eye care and foot care. 4. Low MCV Anemia - Has history of guaiac positive stool and confirmed iron deficiency?. Was evaluated by GI in November 2016 and an EGD and Colonoscopy were recommended. Reconsult GI. Give IV Venofer 500 mg x 2 doses to replenish iron stores. FeSO4 liklely not helpful for her. 5. Morbid Obesity Counseled on the risks associated with obesity. Will provide patient all the necessary assistance, counseling and positive reinforcement to facilitate weight loss. Consult environmental health aide. Should explore referring her to [facility] facilities that specialize in managing morbidly obese patients. 6. DVT prophylaxis - Lovenox 40 mg SQ q 12 hours. 7. Advance directives - Full code
--- NOTE | 2018-08-26 22:36 | HP ---
CHIEF COMPLAINT: unable to walk PCP: Dr. Garcia HISTORY OF PRESENT ILLNESS: 73F w/ pmhx of diastolic CHF, HTN, HLD, NIDDM, morbid obesity, hypothyroidism, COPD who was BIBEMS due to inability to ambulate. Pt was discharged from the hospital today, transported to her home, but when EMS was attempting to transfer the patient from their chair to her chair, she was found to be unstable on her feet. As a result, because pt was not able to ambulate herself, she was brought to the hospital deemed unsafe for discharge. Of note she was recently admitted to the hospital on 08/14/18 after experiencing a fall when she was discharged back home from [facility]. Throughout her hospital course, she was not found to have any acute fracture and was additionally treated with IV Lasix due to b/l peripheral edema swelling. During her most recent admission, she was also evaluated by pulm with recommendation to follow up outpatient for repeat echo and lung function tests. She remains in the hospital for placement as she seems to be unable to walk despite her ambulating ~30 feet today prior to discharge with PT. Recent Travel: Denies PAST MEDICAL HISTORY: diastolic CHF HTN HLD NIDDM morbid obesity hypothyroidism COPD PAST SURGICAL HISTORY: L partial knee replacement lithotripsy Social History: Smoking: Former smoker, quit ~30 years ago Alcohol: Denies Drugs: Denies Family History: Denies Allergies codeine [Codeine] Allergy (Verified 08/26/18 19:28) shellfish derived Allergy (Verified 08/26/18 19:28) tramadol Adverse Reaction (Mild, Verified 08/26/18 19:28) lethargic HOME MEDICATIONS: Home Medications Medication Instructions Recorded Levothyroxine [Synthroid -] 75 mcg PO DAILY 12/11/16 [place]-3 Fatty Acids/Fish Oil [Fish 1 each PO DAILY 12/11/16 Oil 1,000 mg Softgel] Simvastatin 40 mg PO HS 12/11/16 Aspirin [ASA -] 81 mg PO DAILY #1 tab.chew 03/05/17 Multivitamins [Multivit ([facility] 1 tab PO DAILY tab 03/05/17 Formulary)] metFORMIN HCL [Glucophage -] 500 mg PO BID 05/25/18 Albuterol 2.5/Ipratropium 0.5 1 amp NEB RTID amp 05/30/18 [Duoneb -] Acetaminophen [Tylenol] 325 mg PO ASDIR 07/16/18 Nystatin/Triamcinolone Top Cr 1 applic TP BID 07/16/18 [Mycolog II -] Docusate Sodium [Colace -] 100 mg PO BID capsule 08/22/18 Hydrocortisone 2.5% Topical Cr 1 applic [place] DAILY tube 08/22/18 [Anusol-Hc -] Polyethylene Glycol 3350 [Miralax 17 gm PO BID bottle 08/22/18 119 gm Btl -] Potassium Chloride [K-Dur -] 20 meq PO DAILY tablet.er 08/22/18 Ferrous Sulfate 325 mg PO DAILY #30 tablet 08/26/18 Furosemide [Lasix] 40 mg PO BID #30 tablet 08/26/18 REVIEW OF SYSTEMS CONSTITUTIONAL: Absent: fever, chills, diaphoresis, generalized weakness, malaise, loss of appetite, weight change HEENT: Absent: rhinorrhea, nasal congestion, throat pain, throat swelling, difficulty swallowing, mouth swelling, ear pain, eye pain, visual changes CARDIOVASCULAR: +b/l lower extremity edema Absent: chest pain, syncope, palpitations, irregular heart rate, lightheadedness RESPIRATORY: Absent: cough, shortness of breath, dyspnea with exertion, orthopnea, wheezing, stridor, hemoptysis GASTROINTESTINAL: Absent: abdominal pain, abdominal distension, nausea, vomiting, diarrhea, constipation, melena, hematochezia GENITOURINARY: Absent: dysuria, frequency, urgency, hesitancy, hematuria, flank pain, genital pain MUSCULOSKELETAL: Absent: myalgia, arthralgia, joint swelling, back pain, neck pain NEUROLOGIC: Absent: headache, focal weakness or paresthesias, dizziness, unsteady gait, seizure, mental status changes, bladder or bowel incontinence PSYCHIATRIC: +anxiety Absent: depression, suicidal or homicidal ideation, hallucinations. PHYSICAL EXAMINATION Vital Signs - 24 hr 08/26/18 18:20 Temperature 97.6 F Pulse Rate 83 Respiratory 16 Rate Blood Pressure 115/56 L O2 Sat by Pulse 96 Oximetry (%) GENERAL: The patient is awake, alert, and fully oriented, in no acute distress. on nasal canula 4L base line HEAD: Normal with no signs of trauma. ENT: , moist mucous membranes. NECK: Trachea midline, full range of motion, supple. LUNGS: Breath sounds equal, clear to auscultation bilaterally, no wheezes, crackles b/l , no accessory muscle use. on nasal canula 4 l HEART: Regular rate and rhythm, S1, S2 ABDOMEN: Obese. Soft, nontender, nondistended, normoactive bowel sounds, no guarding, no rebound. EXTREMITIES: warm, well-perfused,dependent. 1+ pitting edema b/l LE. +3/5 hip b /l flexion. NEUROLOGICAL: Normal speech, gait not observed. PSYCH: Anxious. SKIN: Warm, dry. Active Medications Albuterol/Ipratropium (Duoneb -) 1 amp NEB RTID [facility] Aspirin (Asa -) 81 mg PO DAILY [facility] Atorvastatin Calcium (Lipitor -) 20 mg PO HS [facility] Docusate Sodium (Colace -) 100 mg PO BID [facility] Last Admin: 08/26/18 22:48 Dose: 100 mg Enoxaparin Sodium (Lovenox -) 40 mg SQ DAILY [facility] Furosemide (Lasix -) 40 mg PO BIDLASIX [facility] Last Admin: 08/27/18 05:34 Dose: 40 mg Insulin Aspart (Novolog Vial Sliding Scale -) [address] [facility]; Protocol Levothyroxine Sodium (Synthroid -) 75 mcg PO DAILY@0700 [facility] Nystatin/Triamcinolone Acetonide (Mycolog Ii Cream -) 1 applic TP BID [facility] Last Admin: 08/26/18 22:49 Dose: Not Given Polyethylene Glycol (Miralax (For Daily Use) -) 17 gm PO BID [facility] Potassium Chloride (K-Dur -) 20 meq PO DAILY [facility] ASSESSMENT/PLAN: Patient is a 73 year old female with past medical history of diastolic CHF, HLD , NIDDM, morbid obesity, hypothyroidism and COPD (O2-dependent) recently discharged today, but brought back by EMS from home due to inability to ambulate. #Inability to ambulate -Pt does not have any acute medical problems at this time. Her inability to ambulate is multi-factorial including her recent fall, hx of diastolic CHF, and multiple co-morbid diseases, as well as obesity. -Consult leadite worker, medical case worker -Physical therapy evaluation -pain control #Diastolic CHF Continue home med: PO Lasix 40mg BID #HLD Continue home med: simvastatin 40 mg PO HS #NIDDM -Will hold home metformin -Insulin sliding scale implemented -BGM ACHS #Hypothyroidism -Continue home med: Synthroid 75 mcg QD #COPD -Continue home Duonebs RTID -Continue oxygen at 4L NC -Pre and post assessment prior to discharge #Microcytic Anemia -Recently FOBT neg -Was previously discharged on FeSO4 -Consider giving IV Venofer 500 x2 doses #FEN -Not on any standing fluids -Electrolytes wnl, routine bmp monitoring -diabetic/sodium restricted diet #Prophylaxis -Lovenox 40mg sq daily #Disposition -full code -med-surg Visit type - Emergency Visit Emergency Visit: Yes ED Registration Date: 08/26/18 Care time: The patient presented to the Emergency Department on the above date and was hospitalized for further evaluation of their emergent condition. - New Patient This patient is new to me today: Yes Date on this admission: 08/27/18 - Critical Care Critical Care patient: No
[2018-08-26] MEDS ORDERED: DOCUSATE SODIUM 100 MG CAPSULE (FP) PO ONE (22:43)
[2018-08-26] MEDS ORDERED: FUROSEMIDE 40 MG TABLET (FP) ONE (22:43)
[2018-08-26] MEDS: DOCUSATE SODIUM 100 MG CAPSULE (FP) PO SCH (22:48)
[2018-08-26] MEDS: FUROSEMIDE 40 MG TABLET (FP) PO SCH (22:48)
[2018-08-26] MEDS: NYSTATIN/TRIAMCINOLONE TOPICAL CREAM 15 GM TUBE TP SCH (22:49)
[2018-08-27 04:23] VITALS: BMI 52.3
[2018-08-27] MEDS: FUROSEMIDE 40 MG TABLET (FP) PO SCH ×2 (05:34→13:34)
[2018-08-27] MEDS: LEVOTHYROXINE NA 75 MCG TABLET (FP) PO SCH (06:35)
[2018-08-27] MEDS: INSULIN SLIDING SCALE (NOVOLOG) 1 VIAL SQ SCH ×4 (06:35→21:58)
[2018-08-27] MEDS: ALBUTEROL SO4 2.5/IPRATROPIUM 0.5 INH SOL 3 ML VIAL.NEB. NEB SCH ×3 (08:41→21:50)
[2018-08-27] MEDS ORDERED: ALBUTEROL SO4 2.5/IPRATROPIUM 0.5 INH SOL 3 ML VIAL.NEB. NEB PRN (09:49)
[2018-08-27] MEDS ORDERED: ACETAMINOPHEN 325 MG TABLET (FP) PO PRN (09:49)
[2018-08-27] MEDS ORDERED: BENZOCAINE 28 GM HEMORRHOIDAL OINTMENT PR PRN (09:51)
--- NOTE | 2018-08-27 09:56 | PN ---
Physical Exam: SUBJECTIVE: Patient seen and examined pt has no new complaints states when she reached home she is unable to stand and her brother said she cannot take care of her. So she came back. Yesterday as per protective services social worker when she talked to her brother he said he will take care of his sister. Pt is sitting comfortably in bed. again eating butter and had 4-5 creamer in coffee. I had told her before also not to eat fatty food. OBJECTIVE: Vital Signs Period Temp Pulse Resp BP Sys/Donohue Pulse Ox Last 24 Hr 97.6 F-98.0 F 80-84 16-17 115-124/56-62 92-100 GENERAL: The patient is awake, alert, and fully oriented, in no acute distress. on nasal canula 4L base line HEAD: Normal with no signs of trauma. ENT: , moist mucous membranes. NECK: Trachea midline, full range of motion, supple. LUNGS: Breath sounds equal, clear to auscultation bilaterally, no wheezes, crackles b/l , no accessory muscle use. on nasal canula 4 l HEART: Regular rate and rhythm, S1, S2 ABDOMEN: Soft, nontender, nondistended, normoactive bowel sounds, no guarding, no rebound, obese EXTREMITIES: warm, well-perfused, no edema NEUROLOGICAL: Normal speech, gait not observed. PSYCH: Normal mood, normal affect. SKIN: Warm, dry, Laboratory Results - last 24 hr 08/27/18 05:56 POC Glucometer 160 Active Medications Generic Name Dose Route Start Last Admin Trade Name Freq PRN Reason Stop Dose Admin Acetaminophen 650 mg 08/27/18 09:49 Tylenol - PO Q6H PRN PAIN LEVEL 1-5 Albuterol/Ipratropium 1 amp 08/27/18 08:00 Duoneb - NEB RTID LISA Albuterol/Ipratropium 1 amp 08/27/18 09:49 Duoneb - NEB Q6H PRN SHORTNESS OF BREATH Aspirin 81 mg 08/27/18 10:00 Asa - PO DAILY LISA Atorvastatin Calcium 20 mg 08/27/18 22:00 Lipitor - PO HS LISA Benzocaine 1 applic 08/27/18 09:51 [place] Ointment - VT PRN PRN HEMORRHOIDS Docusate Sodium 100 mg 08/26/18 22:15 08/26/18 22:48 Colace - PO 100 mg BID LISA Administration Enoxaparin Sodium 40 mg 08/27/18 10:00 Lovenox - SQ DAILY LISA Ferrous Sulfate 325 mg 08/27/18 10:00 Feosol - PO DAILY LISA Furosemide 40 mg 08/26/18 22:30 08/27/18 05:34 Lasix - PO 40 mg BIDLASIX LISA Administration Insulin Aspart 1 vial 08/27/18 07:00 08/27/18 06:35 Novolog Vial Sliding Scale - SQ 2 units ACHS LISA Administration Protocol Levothyroxine Sodium 75 mcg 08/27/18 07:00 08/27/18 06:35 Synthroid - PO 75 mcg DAILY@0700 LISA Administration Multivitamins/Minerals/Vitamin C 1 tab 08/27/18 10:00 Tab-A-Vit - PO DAILY LISA Nystatin/Triamcinolone Acetonide 1 applic 08/26/18 22:15 08/26/18 22:49 Mycolog Ii Cream - TP Not Given BID LISA Aiwps-3-Ddtl Ethyl Esters 1 gm 08/27/18 10:00 Lovaza - PO DAILY LISA Polyethylene Glycol 17 gm 08/27/18 10:00 Miralax (For Daily Use) - PO BID LISA Potassium Chloride 20 meq 08/27/18 10:00 K-Dur - PO DAILY LISA ASSESSMENT/PLAN:Patient is a 73 year old female with past medical history of diastolic CHF, HLD, NIDDM, morbid obesity, hypothyroidism and COPD (O2-dependent ), presented to the ED with bilateral lower leg pain and left hip pain after a fall. waiting for placement. unsafe to be dc home as she cant walk because of chronic pain and brother refused to take care of her. Pt has walker in home. PT twice a day in hospital. #h/o Diastolic CHF low salt diet low cholestrol diet lasix 40 po bid #HLD -Continue lipitor 20 #NIDDM -Will hold home metformin -Insulin sliding scale implemented -BGM ACHS #Hypothyroidism -Continue synthroid 75mcg daily # Microcytic anemia iron deficiency anemia. on ferrous sulphate stool for occult blood negative #COPD -Continue Duonebs prn -Continue oxygen at 4L NC. home oxygen. - pt has oxygen cylender in home #FEN -orally < 1500ml allowed -Electrolytes wnl, routine bmp monitoring -diabetic/sodium restricted diet #Prophylaxis -Lovenox 40mg sq daily #Disposition pending placement Visit type - Emergency Visit Emergency Visit: Yes ED Registration Date: 08/26/18 Care time: The patient presented to the Emergency Department on the above date and was hospitalized for further evaluation of their emergent condition. - New Patient This patient is new to me today: No - Critical Care Critical Care patient: No
[2018-08-27] MEDS ORDERED: INSULIN (NOVOLOG) ASPART 100 UNITS/ML 10ML VIAL ONE (10:05)
[2018-08-27] MEDS ORDERED: PT OWN MED DRAWER 7, Y5N ONE ×2 (10:05→14:49)
[2018-08-27] MEDS: OMEGA-3 ACID ETHYL ESTERS (FATTY-ACIDS) 1 GM CAPSULE (FP) PO SCH (10:13)
[2018-08-27] MEDS: MULTIVITAMINS (DAILY MVI) TABLET (FP) PO SCH (10:13)
[2018-08-27] MEDS: FERROUS SO4 325 MG TABLET (FP) PO SCH (10:13)
[2018-08-27] MEDS: ASPIRIN 81 MG CHEWABLE TABLETS PO SCH (10:13)
[2018-08-27] MEDS: POTASSIUM CHLORIDE TABS 20 MEQ TABLET.ER (FP) PO SCH (10:13)
[2018-08-27] MEDS: DOCUSATE SODIUM 100 MG CAPSULE (FP) PO SCH ×2 (10:13→21:52)
[2018-08-27] MEDS: ENOXAPARIN NA (PORCINE) 40 MG/0.4 ML DISP.SYRIN SQ SCH (10:13)
[2018-08-27] MEDS: POLYETHYLENE GLYCOL 3350 119 GM BTL PO SCH ×2 (10:14→21:52)
--- NOTE | 2018-08-27 12:11 | PN ---
Teaching Attending Note Name of Resident: Michel Alcantar ATTENDING PHYSICIAN STATEMENT I saw and evaluated the patient. I reviewed the resident's note and discussed the case with the resident. I agree with the resident's findings and plan as documented. SUBJECTIVE: Ms Vázquez is without complaint today. Denies cp, sob, n/v. OBJECTIVE: Last Vital Signs Temp Pulse Resp BP Pulse Ox 36.7 C 84 17 116/62 92 L 08/27/18 04:14 08/27/18 04:14 08/27/18 04:14 08/27/18 04:14 08/27/18 04:14 Gen: nad, obese Pulm: ctab w/o w/r/r CV: rrr w/o m/r/g Abd: +bs, s/nt/nd Ext: 1+ nonpitting edema ASSESSMENT AND PLAN: -patient presented because could not stand when got home yesterday -however standing here with PT -otherwise medically stable -case d/w CM/SW about discharge options -continue current management -continue PT -follow up with CM/SW Problem List - Problems (1) Risk for falls Code(s): Z91.81 - HISTORY OF FALLING (2) CHF (congestive heart failure) Code(s): I50.9 - HEART FAILURE, UNSPECIFIED Qualifiers: Heart failure type: diastolic Heart failure chronicity: acute on chronic Qualified Code(s): I50.33 - Acute on chronic diastolic (congestive) heart failure (3) CKD (chronic kidney disease) stage 3, GFR 30-59 ml/min Code(s): N18.3 - CHRONIC KIDNEY DISEASE, STAGE 3 (MODERATE) (4) COPD (chronic obstructive pulmonary disease) Code(s): J44.9 - CHRONIC OBSTRUCTIVE PULMONARY DISEASE, UNSPECIFIED Qualifiers: COPD type: chronic bronchitis Chronic bronchitis type: unspecified Qualified Code(s): J42 - Unspecified chronic bronchitis (5) Diabetes Code(s): E11.9 - TYPE 2 DIABETES MELLITUS WITHOUT COMPLICATIONS Qualifiers: Diabetes mellitus type: type 2 Diabetes mellitus [facility] insulin use: without director long term care use Diabetes mellitus complication status: with skin complications Diabetes mellitus complication detail: with foot ulcer Qualified Code(s): E11.621 - Type 2 diabetes mellitus with foot ulcer; L97.509 - Non-pressure chronic ulcer of other part of unspecified foot with unspecified severity (6) HLD (hyperlipidemia) Code(s): E78.5 - HYPERLIPIDEMIA, UNSPECIFIED (7) HTN (hypertension) Code(s): I10 - ESSENTIAL (PRIMARY) HYPERTENSION (8) Morbid obesity with BMI of 50.0-59.9, adult Code(s): E66.01 - MORBID (SEVERE) OBESITY DUE TO EXCESS CALORIES; Z68.43 - BODY MASS INDEX (BMI) 50-59.9, ADULT
[2018-08-27] MEDS: NYSTATIN/TRIAMCINOLONE TOPICAL CREAM 15 GM TUBE TP SCH ×2 (12:31→21:58)
[2018-08-27] MEDS ORDERED: ATORVASTATIN CA 20 MG TABLET (FP) PO SCH (22:00)
[2018-08-28] MEDS: FUROSEMIDE 40 MG TABLET (FP) PO SCH (06:35)
[2018-08-28] MEDS: INSULIN SLIDING SCALE (NOVOLOG) 1 VIAL SQ SCH ×2 (06:35→11:45)
[2018-08-28] MEDS: LEVOTHYROXINE NA 75 MCG TABLET (FP) PO SCH (06:35)
[2018-08-28 07:18] LABS: HEMATOCRIT 26.7 % (32.4-45.2); HEMOGLOBIN 7.9 GM/dL (10.7-15.3); MCH 22.6 pg (25.7-33.7); MCHC 29.7 g/dl (32.0-36.0); MEAN PLT VOLUME 8.6 fl (7.5-11.1); PLATELET COUNT 257 K/MM3 (134-434); RBC 3.51 M/mm3 (3.60-5.2); RDW 19.8 % (11.6-15.6)
[2018-08-28 07:26] LABS: ANION GAP 6 MMOL/L (8-16); BLOOD UREA NITROGEN 15 mg/dL (7-18); CALCIUM 7.7 mg/dL (8.5-10.1); CHLORIDE 95 mmol/L (98-107); CO2 38 mmol/L (21-32); CREATININE 0.7 mg/dL (0.55-1.3); GLUCOSE,RANDOM 160 mg/dL (74-106); POTASSIUM 3.7 mmol/L (3.5-5.1); SODIUM 139 mmol/L (136-145)
[2018-08-28] MEDS: ALBUTEROL SO4 2.5/IPRATROPIUM 0.5 INH SOL 3 ML VIAL.NEB. NEB SCH (07:30)
[2018-08-28 08:05] VITALS: BP 107/64; PULSE 76; TEMP 97.9
--- NOTE | 2018-08-28 09:24 | DS ---
Physical Exam: SUBJECTIVE: Patient seen and examined OBJECTIVE: Vital Signs Period Temp Pulse Resp BP Sys/Donohue Pulse Ox Last 24 Hr 97.8 F-98.4 F 76-84 20-20 107-130/54-74 96-96 PHYSICAL EXAM GENERAL: The patient is awake, alert, and fully oriented, in no acute distress. on nasal canula 4L base line HEAD: Normal with no signs of trauma. ENT: , moist mucous membranes. NECK: Trachea midline, full range of motion, supple. LUNGS: Breath sounds equal, clear to auscultation bilaterally, no wheezes, crackles b/l , no accessory muscle use. on nasal canula 4 l HEART: Regular rate and rhythm, S1, S2 ABDOMEN: Soft, nontender, nondistended, normoactive bowel sounds, no guarding, no rebound, obese EXTREMITIES: warm, well-perfused, no edema NEUROLOGICAL: Normal speech, gait not observed. PSYCH: Normal mood, normal affect. SKIN: Warm, dry, LABS Laboratory Results - last 24 hr 08/27/18 08/27/18 08/27/18 11:29 16:30 21:55 WBC RBC Hgb Hct MCV MCH MCHC RDW Plt Count MPV Sodium Potassium Chloride Carbon Dioxide Anion Gap BUN Creatinine Creat Clearance w eGFR POC Glucometer 162 164 202 Random Glucose Calcium 08/28/18 08/28/18 08/28/18 06:15 06:15 06:34 WBC 6.0 RBC 3.51 L Hgb 7.9 L Hct 26.7 L MCV 76.0 L MCH 22.6 L MCHC 29.7 L RDW 19.8 H Plt Count 257 MPV 8.6 Sodium 139 Potassium 3.7 Chloride 95 L Carbon Dioxide 38 H Anion Gap 6 L BUN 15 Creatinine 0.7 Creat Clearance w eGFR > 60 POC Glucometer 173 Random Glucose 160 H Calcium 7.7 L HOSPITAL COURSE: 73F w/ pmhx of diastolic CHF, HTN, HLD, NIDDM, morbid obesity, hypothyroidism, COPD who was BIBEMS due to inability to ambulate. Pt was discharged from the hospital on 08/26/18, transported to her home, but when EMS was attempting to transfer the patient from their chair to her chair, she was found to be unstable on her feet. As a result, because pt was not able to ambulate herself, she was brought to the hospital deemed unsafe for discharge. Throughout her hospital course she has no acute event and pt was managed on her home meds. Now Pt is discharged to [facility] in stable condition. Follow up with your pcp with in one week Follow up with ceramic maker demonstrator Dr Day and ferry operator Dr dent with in one week Follow up with safety and health manager for outpatient PFT We have started you on Lasix 40 mg twice a day orally We have also increased your potassium pill to 20 meq daily. Please get your BMP blood work done ever 2-3 days. Check your weight daily. Eat low salt and low cholesterol diet. Keep free water intake below 1500 ml. Keep legs elevated when you are sitting or lying in bed by placing pillow under the legs. Change position at least every 2 hourly. Take your laxatives as required. avoid constipation. Follow healthy life style You are using a 4 L of oxygen during sitting. As per Pt she already have home oxygen home PT or visiting nurse will be arranged by clearing tub worker/ case loader operator we have sent your prescription for lasix and iron pills [facility] If you develop any new symptoms or shortness of breath, chest pain please contact doctor or go to hospital Date of Admission:08/26/18 Date of Discharge: 08/28/18 Minutes to complete discharge: 45 Discharge Summary Reason For Visit: MORBID OBISITY/AT RISKS FOR FALLS Current Active Problems Risk for falls (Acute) Condition: Stable - Instructions Diet, Activity, Other Instructions: Follow up with your pcp with in one week Follow up with ceramic maker demonstrator Dr Day and ferry operator Dr dent with in one week Follow up with safety and health manager for outpatient PFT We have started you on Lasix 40 mg twice a day orally We have also increased your potassium pill to 20 meq daily. Please get your BMP blood work done ever 2-3 days. Check your weight daily. Eat low salt and low cholesterol diet. Keep free water intake below 1500 ml. Keep legs elevated when you are sitting or lying in bed by placing pillow under the legs. Change position at least every 2 hourly. Take your laxatives as required. avoid constipation. Follow healthy life style You are using a 4 L of oxygen during sitting. As per Pt she already have home oxygen home PT or visiting nurse will be arranged by clearing tub worker/ case loader operator we have sent your prescription for lasix and iron pills to [facility] If you develop any new symptoms or shortness of breath, chest pain please contact doctor or go to hospital Referrals: Nathen Child MD [Staff Physician] - 1 Week Jarret Day MD [Staff Physician] - 1 Week Freddy Dent MD [Staff Physician] - 1 Week Disposition: [facility] - Home Medications Comprehensive Discharge Medication List: Ambulatory Orders Levothyroxine [Synthroid -] 75 mcg PO DAILY 12/11/16 [place]-3 Fatty Acids/Fish Oil [Fish Oil 1,000 mg Softgel] 1 each PO DAILY Simvastatin 40 mg PO HS 12/11/16 Aspirin [ASA -] 81 mg PO DAILY #1 tab.chew 03/05/17 Multivitamins [Multivit ([facility])] 1 tab PO DAILY tab 03/05/17 metFORMIN HCL [Glucophage -] 500 mg PO BID 05/25/18 Albuterol 2.5/Ipratropium 0.5 [Duoneb -] 1 amp NEB RTID amp 05/30/18 Acetaminophen [Tylenol] 325 mg PO ASDIR 07/16/18 Nystatin/Triamcinolone Top Cr [Mycolog II -] 1 applic TP BID 07/16/18 Docusate Sodium [Colace -] 100 mg PO BID capsule 08/22/18 Polyethylene Glycol 3350 [Miralax 119 gm Btl -] 17 gm PO BID bottle 08/22/18 Potassium Chloride [K-Dur -] 20 meq PO DAILY tablet.er 08/22/18 Ferrous Sulfate 325 mg PO DAILY #30 tablet 08/26/18 Furosemide [Lasix] 40 mg PO BID #30 tablet 08/26/18 Benzocaine Ointment [Americaine Ointment -] 1 applic NM PRN PRN tube 08/28/18 Hydrocortisone 2.5% Topical Cr [Anusol-Hc -] 1 applic NM DAILY PRN #0 tube 08/28 This patient is new to me today: No Emergency Visit: Yes ED Registration Date: 08/26/18 Care time: The patient presented to the Emergency Department on the above date and was hospitalized for further evaluation of their emergent condition. Critical Care patient: No - Discharge Referral Referred to [facility] Med [facility].: No
[2018-08-28] MEDS: ENOXAPARIN NA (PORCINE) 40 MG/0.4 ML DISP.SYRIN SQ SCH (09:41)
[2018-08-28] MEDS: FERROUS SO4 325 MG TABLET (FP) PO SCH (09:42)
[2018-08-28] MEDS: ASPIRIN 81 MG CHEWABLE TABLETS PO SCH (09:42)
[2018-08-28] MEDS: DOCUSATE SODIUM 100 MG CAPSULE (FP) PO SCH (09:42)
[2018-08-28] MEDS: POTASSIUM CHLORIDE TABS 20 MEQ TABLET.ER (FP) PO SCH (09:42)
[2018-08-28] MEDS: MULTIVITAMINS (DAILY MVI) TABLET (FP) PO SCH (09:42)
[2018-08-28] MEDS: OMEGA-3 ACID ETHYL ESTERS (FATTY-ACIDS) 1 GM CAPSULE (FP) PO SCH (09:42)
[2018-08-28] MEDS: POLYETHYLENE GLYCOL 3350 119 GM BTL PO SCH (09:44)
[2018-08-28] MEDS: NYSTATIN/TRIAMCINOLONE TOPICAL CREAM 15 GM TUBE TP SCH (09:44)
--- NOTE | 2018-08-28 10:09 | PN ---
Teaching Attending Note Name of Resident: Michel Alcantar ATTENDING PHYSICIAN STATEMENT I saw and evaluated the patient. I reviewed the resident's note and discussed the case with the resident. I agree with the resident's findings and plan as documented. SUBJECTIVE: Ms Vázquez is anxious but otherwise without complaint. Denies cp, sob, n/v. OBJECTIVE: Last Vital Signs Temp Pulse Resp BP Pulse Ox 36.6 C 76 20 107/64 96 08/28/18 08:04 08/28/18 08:04 08/28/18 08:04 08/28/18 08:04 08/27/18 22:00 Gen: obese, nad Pulm: ctab CV: rrr w/o m/r/g Abd: +bs, s/nt/nd Ext: trace edema CBC, BMP 08/28/18 06:15 08/28/18 06:15 Ms Vázquez is a pleasant 73 year old female who was admitted under observation secondary to inability to walk at home. She was seen by social work and was able to be placed. She is safe for discharge to SNF. Problem List - Problems (1) Risk for falls Code(s): Z91.81 - HISTORY OF FALLING (2) CHF (congestive heart failure) Code(s): I50.9 - HEART FAILURE, UNSPECIFIED Qualifiers: Heart failure type: diastolic Heart failure chronicity: acute on chronic Qualified Code(s): I50.33 - Acute on chronic diastolic (congestive) heart failure (3) CKD (chronic kidney disease) stage 3, GFR 30-59 ml/min Code(s): N18.3 - CHRONIC KIDNEY DISEASE, STAGE 3 (MODERATE) (4) COPD (chronic obstructive pulmonary disease) Code(s): J44.9 - CHRONIC OBSTRUCTIVE PULMONARY DISEASE, UNSPECIFIED Qualifiers: COPD type: chronic bronchitis Chronic bronchitis type: unspecified Qualified Code(s): J42 - Unspecified chronic bronchitis (5) Diabetes Code(s): E11.9 - TYPE 2 DIABETES MELLITUS WITHOUT COMPLICATIONS Qualifiers: Diabetes mellitus type: type 2 Diabetes mellitus long term care social worker insulin use: without long term care social worker use Diabetes mellitus complication status: with skin complications Diabetes mellitus complication detail: with foot ulcer Qualified Code(s): E11.621 - Type 2 diabetes mellitus with foot ulcer; L97.509 - Non-pressure chronic ulcer of other part of unspecified foot with unspecified severity (6) HLD (hyperlipidemia) Code(s): E78.5 - HYPERLIPIDEMIA, UNSPECIFIED (7) HTN (hypertension) Code(s): I10 - ESSENTIAL (PRIMARY) HYPERTENSION (8) Morbid obesity with BMI of 50.0-59.9, adult Code(s): E66.01 - MORBID (SEVERE) OBESITY DUE TO EXCESS CALORIES; Z68.43 - BODY MASS INDEX (BMI) 50-59.9, ADULT
[2018-08-28] MEDS ORDERED: ALBUTEROL SO4 2.5/IPRATROPIUM 0.5 INH SOL 3 ML VIAL.NEB. NEB ONE (14:21)
== END 2018-08-28 12:42 ==
LOC: JER 18:18 → JERBED 20:23 → INTOOBSV 20:23 → J7W 08-27 04:12
PROVIDERS: ADMIT Internal Medicine; ATTEND Internal Medicine
PROC: 3E013GC Introduction of Other Therapeutic Substance into Subcutaneous Tissue, Percutaneous Approach (ICD-10-PCS; principal; 2018-08-26)
PROC: 3E0F7GC Introduction of Other Therapeutic Substance into Respiratory Tract, Via Natural or Artificial Opening (ICD-10-PCS; 2018-08-26)
DX: Z91.81 History of falling (principal); R26.2 Difficulty in walking, not elsewhere classified; I11.0 Hypertensive heart disease with heart failure; I50.33 Acute on chronic diastolic (congestive) heart failure; E78.5 Hyperlipidemia, unspecified; E11.9 Type 2 diabetes mellitus without complications; E03.9 Hypothyroidism, unspecified; J44.9 Chronic obstructive pulmonary disease, unspecified; M62.81 Muscle weakness (generalized); R77.0 Abnormality of albumin; D50.9 Iron deficiency anemia, unspecified; E66.01 Morbid (severe) obesity due to excess calories; Z68.43 Body mass index [BMI] 50.0-59.9, adult; Z87.442 Personal history of urinary calculi; Z79.4 Long term (current) use of insulin; Z99.81 Dependence on supplemental oxygen; Z79.82 Long term (current) use of aspirin; Z79.84 Long term (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 of oral hypoglycemic drugs
CPT/HCPCS: 36415; 80048; 82962; 85027; 94640; 96372; 97116-GP; 97161-GP; 99285-25; G0378